=== PATIENT | female | born 1955 | race Caucasian/White ===

== ENCOUNTER → 2019-01-15 | Outpatient (CLI) | payer MEDICARE, SELFPAY ==
[2019-01-15 14:22] LABS: Amphetamine Urine VISTA NEGATIVE (<1000 ng/mL); Barbiturate Urine VISTA NEGATIVE (< 200 ng/mL); Benzodiazepine Urine VISTA NEGATIVE (< 200 ng/mL); Cocaine Urine VISTA NEGATIVE (< 300 ng/mL); Ecstacy Urine VISTA NEGATIVE (< 500 ng/mL); Methadone Urine VISTA NEGATIVE (< 300 ng/mL); PCP Urine VISTA NEGATIVE (< 25 ng/mL); THC Urine VISTA NEGATIVE (< 50 ng/mL); Vista UDS pH Range 6
== END | disposition home or self-care (01) ==
LOC: LAB 13:13
PROVIDERS: Referring Provider Anesthesiology Pain Medicine; Visit Provider Anesthesiology Pain Medicine
DX: F11.20 Opioid dependence, uncomplicated (principal)
CPT/HCPCS: 80307

== ENCOUNTER 2019-07-07 14:58 | Emergency (ER) | payer MEDICARE, OTHER, SELFPAY ==
[2019-07-07 15:03] VITALS: BP 119/59; PULSE 69; RESP 19; RESP 20; TEMP 36.3; O2SAT 97; BMI 35.4
--- NOTE | 2019-07-07 15:51 | ED.DCSUM_ITS ---
- ER Visit Summary Date of Service: 07/07/19 Chief Complaint: Right buttock wound History of Present Illness: The patient is a 63 F who presents with a right buttock wound that has been getting worse over the past 2 to 3 weeks. Patient was seen by home health today. Patient was scheduled to see the wound care center here next week. Patient was referred to the emergency department by home health nurse for evaluation of her wound. The nurse was concerned about the redness around the wound. Patient denies any fevers or chills. Patient admits to some discharge and drainage from the wound. Patient describes her pain as burning. Patient denies any nausea or vomiting. Physical Examination: Vital signs are stable. Patient is afebrile. Patient is in no acute distress. Skin is warm and dry. There is a grade 2 ulceration over the right gluteal area. There is some surrounding erythema. There is some mild purulent drainage. There is tenderness to palpation. There is no abscess formation. Sensation was intact to light touch in all areas of the wound. Strength is 5/5 bilateral knee upper and lower extremities. Test Results: CBC and basic metabolic profile were obtained and were essentially within normal limits. Emergency Department Course and Treatment: Patient was given a dose of clindamycin here. Wound cultures were obtained. Patient was given a prescription for clindamycin. Patient was instructed to follow-up with the wound care center as scheduled. Patient and family understood and were agreeable with the plan. All questions were answered. Disposition: Discharge home Impression: Right gluteal ulcer This note was generated with [employer] dictation software. It may contain incorrect words, spelling, and punctuation that were not noted in review of the chart prior to signing ED Disposition - Plan for ED Patient: Disposition: Home or Assisted Living Diagnosis: Skin ulcer Instructions: What Are Pressure Ulcers?, Preventing Pressure Ulcers Prescriptions: Clindamycin HCl [Cleocin] 300 mg PO Q6H #40 cap Prescription Printed Referrals: Care Physician,No Primary [NON-STAFF] - Clinic,Wound [None] - 5-7 Days
[2019-07-07 16:33] LABS: Absolute Lymphocyte Count 3.09 X10^3/uL (0.83-4.51); Absolute Neutrophil Count 5.7 X10^3/uL (2.0-7.7); Basophil# 0.09 X10^3/uL; Basophil% 0.9 % (0-1); Hematocrit 38.1 % (37-47); Hemoglobin 12.3 g/dL (12.0-15.0); Lymphocyte # 3.09 X10^3/ul (4.0); Lymphocyte % 30.6 % (19-41); Mean Corp Hgb Conc 32.3 g/dL (32-36); Mean Corpuscular Hgb 32.1 pg (27.0-32.0); Mean Corpuscular Volume 99.5 fL (81-99); Mean Platelet Vol. 9.9 fl (6.2-12.0); Monocyte# 0.71 X10^3/uL; NRBC Flagged by Analyzer 0 % (0-5); Neutrophil # 5.71 X10^3/uL (2.7-7.7); Neutrophil % 56.4 % (47-70); Platelet Count 369 K/mm3 (150-450); RBC Distribution Width CV 15.7 % (11.6-14.6); RBC Distribution Width SD 56.4 fl (35.1-43.9); Red Blood Count 3.83 M/mm3 (4.2-5.4); White Blood Count 10.1 K/mm3 (4.4-11.0)
[2019-07-07 17:17] VITALS: BP 110/54; BP 110/64; PULSE 67; RESP 14; TEMP 37.2; O2SAT 96
[2019-07-07 18:00] LABS: Anion Gap 9 (5-15); BUN 18 mg/dL (7-18); BUN/Creat Ratio 10.1 RATIO (10-20); Chloride 103 mmol/L (98-107); Creatinine, Serum 1.79 mg/dL (0.55-1.02); EST Glomerular Filtration Rate 30 mL/min (>60); Est Glom Filt Rate - Afr Amer 37 mL/min (>60); Estimated Creatinine Clearance 26.61 ml/min; Glucose 307 mg/dL (74-106); Potassium 3.9 mmol/L (3.5-5.1); Sodium Level 135 mmol/L (136-145)
[2019-07-07 18:29] VITALS: BP 122/57; PULSE 67; RESP 15; O2SAT 98
== END 2019-07-07 18:43 | disposition home or self-care (01) ==
PROVIDERS: Emergency Provider Emergency Medicine; Family Provider Internal Medicine; PCP Internal Medicine
DX: L89.312 Pressure ulcer of right buttock, stage 2 (principal); I50.9 Heart failure, unspecified; E11.9 Type 2 diabetes mellitus without complications; J44.9 Chronic obstructive pulmonary disease, unspecified; E66.9 Obesity, unspecified; Z68.35 Body mass index [BMI] 35.0-35.9, adult; Z72.0 Tobacco use
CPT/HCPCS: 80048; 85025; 87070; 87075; 87077; 87186; 87205; 99283; J7030; A4216

== ENCOUNTER 2019-07-15 13:28 | Outpatient (RCR) | payer MEDICARE, OTHER, SELFPAY ==
[2019-07-15 13:44] VITALS: BP 109/55; PULSE 84; RESP 16; TEMP 36.8; BMI 35.4
--- NOTE | 2019-07-15 16:42 | HP.PCM_ITS ---
(1) Pressure ulcer, buttock, right, unstageable Status: Chronic Current Visit: Yes Code(s): L89.310 - Pressure ulcer of right buttock, unstageable (2) Blood glucose elevated Status: Chronic Current Visit: Yes Code(s): R73.9 - Hyperglycemia, unspecified (3) Hypertension Status: Chronic Current Visit: No Code(s): I10 - Essential (primary) hypertension (4) Hyperlipidemia Status: Chronic Current Visit: No Code(s): E78.5 - Hyperlipidemia, unspecified (5) Decreased renal function Status: Acute Current Visit: No Code(s): N28.9 - Disorder of kidney and ureter, unspecified (6) Chronic back pain Status: Chronic Current Visit: No Code(s): M54.9 - Dorsalgia, unspecified; G89.29 - Other chronic pain (7) Impaired mobility Status: Chronic Current Visit: Yes Code(s): Z74.09 - Other reduced mobility (8) Severe obesity (BMI 35.0-35.9 with comorbidity) Status: Chronic Current Visit: No Code(s): E66.01 - Morbid (severe) obesity due to excess calories; Z68.35 - Body mass index (BMI) 35.0-35.9, adult History of Present Illness Date of Service: 07/15/19 Chief Complaint: Right buttock wound History of Wound: This is a pleasant 63 year old female patient who [facility] an initial evaluation today, 07/15/2019 for a right buttock pressure ulcer. Patient states that the DPU occurred approximately 1 month ago while at [facility] for rehabilitation due to hypoxia. She was referred to the [facility] for evaluation and treatment. On 07/07/2019 patient presented to the [facility] emergency department d/t concern for increasing redness surrounding the wound. She was given 1 dose of IV clindamycin, and started on a 10-day p.o. course of clindamycin. Wound cultures were collected, as well as blood work. ED wound cultures were positive for the following: serratia (1+), e.coli (1+), and corynebacterium (3+), anaerobic cultures still pending. Lab results were significant for the following: eGFR 30, Cr 1.79, Glucose 307. Patient's at home wound care has consisted of dressing the wound with Santyl and covering with gauze, changing twice daily. Her has been providing her wound care, and states with each dressing change the dressing has been saturated with a foul-smelling odor. The redness surrounding the pressure ulcer has remained stable. The patient otherwise denies any fever, chills, nausea, vomiting, or diarrhea. Denies any increasing pain at or surrounding the site of the pressure ulcer. Patient is mobile with walker for support, but per her she ambulates infrequently, remaining seated most of the time. Patient also receives home health via [facility] 3x/week. Patient does not currently have a primary care provider, but has an appointment scheduled this week to establish with Dr. Zaira Donaldson in [place]. Patient denies any history of diabetes, though she states her blood glucose ranges from 70-170s at home. She has a PMH significant or HTN, HLD, and obesity. Patient is a former cigarette smoker, and currently uses a vape pen to smoke. Patient has a chronic history of back pain, including several surgeries, which limits her mobility. Past Medical History Past Medical History: Chronic Problems Pressure ulcer, buttock, right, unstageable (Chronic) Blood glucose elevated (Chronic) Hypertension (Chronic) Hyperlipidemia (Chronic) Chronic back pain (Chronic) Impaired mobility (Chronic) Severe obesity (BMI 35.0-35.9 with comorbidity) (Chronic) Surgical History: - - spinal surgeries Allergies/Adverse Reactions: Allergies Iodinated Contrast Media [CONTRASTS] Allergy (Verified 07/07/19 15:55) Hives morphine Adverse Reaction (Verified 07/07/19 15:55) Nausea Home Medications: Ambulatory Orders Medication Instructions Recorded Clindamycin HCl [Cleocin] 300 mg PO Q6H #40 cap 07/07/19 Smoking Status: Current every day smoker Tobacco Use: Vapor Review of Systems Constitutional: Denies: Anorexia, Chills, Fever, Malaise, Weight Change Eyes: Denies: Pain, Vision Change HEENT: Denies: Difficulty Hearing, Difficulty Swallowing, Sinus Congestion Cardiovascular: Denies: Chest Pain, Palpitations Respiratory: Denies: Cough, Shortness of Breath Gastrointestinal: Denies: Diarrhea, Nausea, Vomiting Genitourinary: Denies: Dysuria, Hematuria Musculoskeletal: Reports: Back Pain Skin: Reports: Wounds - right buttock pressure ulcer Neurological: Denies: Balance problems, Change in Speech, Slurred speech, Confusion, Focal weakness Endocrine: Denies: Heat/ Cold Intolerance, Polydipsia, Polyuria Hematologic/ Lymphatic: Denies: Anemia, Easy Bruising, Easy Bleeding - Physical Exam Vital Signs Temp Pulse Resp BP 98.2 F 84 16 109/55 L 07/15/19 13:44 07/15/19 13:44 07/15/19 13:44 07/15/19 13:44 General: Alert, Oriented x3, Cooperative, No apparent distress HEENT: Atraumatic, EOMI, Normocephalic Oral: Moist Mucosa Neck: Supple, No JVD, Trachea Midline Lungs: Clear to auscultation, Normal air movement, No rhonchi, No wheeze, No rales Cardiovascular: Regular rate, Regular Rhythm Abdomen: Bowel Sounds Present, Soft, Non Tender, Obese Extremities: No clubbing, No cyanosis, No edema, Capillary Refill Less than 3 Seconds, No Calf Tenderness, Peripheral Pulses Normal Skin: No rashes, Ulcer/ Wound - Unstageable pressure ulcer of right buttock with tunneling throughout. Copious amounts of purulent, foul smelling drainage expressed. Melia-wound area is erythematous without swelling. Does not probe to bone. Wound Measurements and Assessment WC - Nurse 1 - General Ulcer Measurement Start: 07/15/19 13:44 Freq: Status: Active Protocol: Activity Type Activity Date Activity User E-Sign Co-Sign Detail Recorded Client Recorded Date Recorded By Document 07/15/19 13:44 [facility] [id number] 07/15/19 14:00 [facility] 07/15/19 13:44 Wound Center Nurse 1 [Ulcer Assessment] 1-Right buttuck -Combined with other wound No -Current Size (cm) - Length 5.8 -Current Size (cm) - Width 6.9 -Current Size (cm) - Depth 1.6 -Total Square Cm 40.02 -Photo Taken Yes -Epithelialization None Present -Tunneling No -Undermining/Tunneling No -Circular Undermining No -Classification - Pressure Ulcer Unstageable -Exudate Amt Medium -Exudate Type Serosanguineous -Wound Margin Flat & Intact -Granulation Amt None Present (0 %) -Slough/Fibrin Yes -Necrosis Amt Large (67-100%) -Necrotic Tissue Type Adherent Slough -Structure Exposed N/A -Texture (Melia-wound Skin Appearance) Assessed -Moisture (Melia-wound Skin Appearance Assessed,Dry/ ) Scaly -Color (Melia-wound Skin Appearance) Assessed -Temperature (Melia-wound Skin No Abnormality Appearance) (Pt Warm) -Tenderness on Palpation (Melia-wound No Skin Appearance) -Ulcer Cleansing Wound Cleanser -Foul Odor after Cleansing No -Anesthetic Used 4% Lidocaine Solution,5% Lidocaine Gel [Edema Assessment] -Lower Limb Edema Present NA - Nurse 2 - General Ulcer CM Notes Start: 07/15/19 13:44 Freq: Status: Active Protocol: Activity Type Activity Date Activity User E-Sign Co-Sign Detail Recorded Client Recorded Date Recorded By Document 07/15/19 14:25 DV [id number] 07/15/19 15:00 DV 07/15/19 14:25 Wound Center Nurse 2 [Procedure/Treatment] 1-Right buttuck -Time 14:27 -Correct Patient Yes -Correct Side, Site, Position Yes -Correct Procedure Yes -Procedure Performed Yes -Type of Procedure Debridement -Clinical Debridement Subcutaneous -Post Debridement Size (cm) - Length 6.0 -Post Debridement Size (cm) - Width 7.0 -Post Debridement Size (cm) - Depth 2.0 -Total Square Cm 42.00 -Wound/Ulcer Outcome Not Healed -Ulcer Cleansing Rinsed/ Irrigated with Saline -Foul Odor after Cleansing No -Bioengineered Tissue No -Bleeding Controlled with Pressure -Offloading No [See Physician Procedure note for Specifics] Pain Scale: 0-10 Numeric [Pain] -Is Patient Pain Free? Yes Musculoskeletal: Tenderness - on manipulation of pressure ulcer Neurological: Neuro grossly intact Psych/Mental Status: Normal Affect, Appropriate Debridement Note Post-Debridement Measurements/Treatment - Nurse 2 - General Ulcer CM Notes Start: 07/15/19 13:44 Freq: Status: Active Protocol: Activity Type Activity Date Activity User E-Sign Co-Sign Detail Recorded Client Recorded Date Recorded By Document 07/15/19 14:25 DV [id number] 07/15/19 15:00 DV 07/15/19 14:25 Wound Center Nurse 2 1-Right buttuck -Time 14:27 -Correct Patient Yes -Correct Side, Site, Position Yes -Correct Procedure Yes -Procedure Performed Yes -Type of Procedure Debridement -Clinical Debridement Subcutaneous -Post Debridement Size (cm) - Length 6.0 -Post Debridement Size (cm) - Width 7.0 -Post Debridement Size (cm) - Depth 2.0 -Total Square Cm 42.00 -Wound/Ulcer Outcome Not Healed -Ulcer Cleansing Rinsed/ Irrigated with Saline -Foul Odor after Cleansing No -Bioengineered Tissue No -Bleeding Controlled with Pressure -Offloading No Pain Scale: 0-10 Numeric Is Patient Pain Free? Yes Wound debrided: pressure ulcer of right buttock Laterality: Right Wound Grade/Stage: unstageable Type of Debridement: Excisional debridement Anesthesia Used: 4% Lidocaine Solution, 5% Lidocaine Gel Depth: in the subcutaneous layer Percentage of wound debrided: 100 Instrument Used: 7mm curette Tissue Removed: Slough and devitalized tissue Severity: Fat Layer Exposed Amount of bleeding with debridement: Mild Bleeding Controlled with: Compression and gauze Patient tolerated procedure well Assessment/Plan Active Problems Pressure ulcer, buttock, right, unstageable (Chronic) Blood glucose elevated (Chronic) Impaired mobility (Chronic) Assessment: Right buttock pressure ulcer, unstageable. Elevated blood glucose. Impaired mobility. Chronic back pain. Obesity (BMI 35.4) with co-morbidity Plan: Debridement performed today in clinic. Silvercel applied, wicked into tunneling. Covered with ABD and secured with tape. At home wound-care instructions: Patient and instructed to change dressing daily, wicking Silvercel into tunneling and leaving a tail for removal. Cover with ABD or guaze, and secure with tape. Patient may shower. Orders will be faxed to [facility] and nurses may perform dressing changes when at patient's home. Off-loading: Patient instructed to avoid direct pressure on right buttock by offloading with pillows and/or wedges and performing frequent position changes. Diet: Patient encouraged to increase protein and vitamin C intake while taking caution to avoid high carbohydrate and/or sugar intake. Labs/cultures/imaging: Cultures re-ordered and collected today d/t copious amounts of purulent, foul-smelling drainage from wound. Previous culture and labs reviewed from ED visit. Additional labwork ordered. Finish Clindamycin. Start Levaquin as prescribed x 10 day course. Follow-up: Return to clinic in 1 week for re-evaluation. Return sooner or report to the emergency room should symptoms worsen, or new symptoms arise. Scheduled with Dr. Kaiser for [facility] consult at [facility] on 07/28/19. Code Visit Office Visits / Consults: [id number] OV L4 New [id number]: [id number] Tricia subq tissue 20 sq cm/<
[2019-07-15 17:09] LABS: Erythrocyte Sedimentation Rate 93 mm/hr (0-30)
[2019-07-15 17:44] LABS: ALB/GLOB Ratio 0.6 RATIO (0.9-2.4); AST(SGOT) 94 U/L (15-37); Alanine Aminotransfer ALT/SGPT 66 U/L (13-56); Albumin, Serum 2.9 g/dL (3.2-5.0); Alkaline Phosphatase 316 U/L (45-117); Anion Gap 4 (5-15); BUN 16 mg/dL (7-18); BUN/Creat Ratio 9.3 RATIO (10-20); Calcium,Total 9.6 mg/dL (8.5-10.1); Chloride 104 mmol/L (98-107); Creatinine, Serum 1.72 mg/dL (0.55-1.02); EST Glomerular Filtration Rate 32 mL/min (>60); Est Glom Filt Rate - Afr Amer 38 mL/min (>60); Estimated Creatinine Clearance 27.69 ml/min; Globulin 4.7 g/dL (2.2-4.2); Glucose 133 mg/dL (74-106); Hemoglobin A1c 6.7 % (4.2-6.3); Potassium 4.4 mmol/L (3.5-5.1); Prealbumin 22.3 mg/dL (20.0-40.0); Protein, Total 7.6 g/dL (6.4-8.2); Sodium Level 135 mmol/L (136-145)
== END 2019-08-08 23:59 ==
LOC: WC 13:28
PROVIDERS: Family Provider Internal Medicine; PCP Internal Medicine; Referring Provider Nurse Practitioner Family; Visit Provider Nurse Practitioner Family
DX: L89.310 Pressure ulcer of right buttock, unstageable (principal); R73.9 Hyperglycemia, unspecified; R26.9 Unspecified abnormalities of gait and mobility; I10 Essential (primary) hypertension; E78.5 Hyperlipidemia, unspecified; M54.9 Dorsalgia, unspecified; G89.29 Other chronic pain; F17.290 Nicotine dependence, other tobacco product, uncomplicated; E66.01 Morbid (severe) obesity due to excess calories; Z68.35 Body mass index [BMI] 35.0-35.9, adult; Z79.82 Long term (current) use of aspirin; Z79.4 Long term (current) use of insulin; Z79.899 Other long term (current) drug therapy; Z88.8 Allergy status to other drugs, medicaments and biological substances
CPT/HCPCS: 11042; 11045; 36415; 80053; 83036; 84134; 85652; 87070; 87075; 87077; 87186; 87205; 99214; G0463

== ENCOUNTER 2019-07-24 16:30 | Inpatient (IN) | payer MEDICARE, OTHER, SELFPAY ==
[2019-07-24 16:32] VITALS: BP 146/88; PULSE 89; RESP 18; TEMP 36.6; BMI 37.5
--- NOTE | 2019-07-24 16:56 | EKG12_ITS ---
Test Reason : Blood Pressure : / mmHG Vent. Rate : 084 BPM Atrial Rate : 084 BPM P-R Int : 146 ms QRS Dur : 090 ms QT Int : 404 ms P-R-T Axes : 049 018 064 degrees QTc Int : 477 ms Normal sinus rhythm Inferior-posterior infarct , age undetermined , cannot be excluded Abnormal ECG Confirmed by JORDEN MARES, PETE ([id number]), material expeditor CLEMENT GTZ ([id number]) on 07/28/2019 12:21:19 PM Referred By: Zaira Donaldson Confirmed By:PETE LEONARDO MD
--- NOTE | 2019-07-24 16:56 | RAD_ITS ---
STUDY: X-RAY - LUMBAR SPINE REASON FOR EXAM: Female, 63 years old. Chronic back pain. Fall. TECHNIQUE: 2 view(s) of the lumbar spine were obtained. COMPARISON: None FINDINGS: Normal lumbar lordosis. Is a mild levoscoliosis. There is a normal alignment of the vertebrae. There is posterior fusion of L3-S1. The hardware appears intact. There is marked disc space narrowing with endplate spondylosis at L2-3. There is no evidence of acute fracture or loss of vertebral axial height. There appears to be a spinal stimulator in the soft tissues of the lower back. The soft tissue structures are unremarkable. RAD/Lumbar Spine 2 or 3 Views IMPRESSION: Evidence of L3-S1 surgical fusion. There is no acute fracture or subluxation. Electronically Signed: Jimmy Lara DO at 18:59 EST Tel [phone], Service support ,
--- NOTE | 2019-07-24 17:17 | ED.VISSUMM ---
- ER Visit Summary Date of Service: 07/24/19 Chief Complaint: Fall, generalized weakness History of Present Illness: The patient is a 63 F presenting after fall. She has fallen twice in the last 2 days. She had an appointment with a new primary care physician today. She fell in the garage on the way to the appointment, she did not make it to the appointment. She did not hit her head or lose consciousness. She states her legs gave out. She has a history of a decubitus ulcer right buttock that has been treated at the wound clinic. She is scheduled to see Dr. Kaiser's office tomorrow. She recently finished a course of Augmentin and was recently started on clindamycin by the wound clinic. She recently got out of rehab and has been home for 2 weeks. She has history of chronic back pain and sees Dr. Mcnally. She wears home O2. She complains of generalized weakness and fatigue. She complains of shortness of breath. Denies fever. Denies other complaints. Physical Examination: Vitals are stable. Patient is afebrile. Alert no acute distress. HEENT exam is unremarkable. Neck is supple. Lungs are clear and equal bilaterally. Heart is regular rate and rhythm. Abdomen is soft nontender nondistended. Decubitus ulcer right buttock with purulent drainage Extremities are unremarkable. Skin is warm and dry. No focal neurologic deficit. Remainder of exam is unremarkable. Emergency Department Course and Treatment: CBC shows hemoglobin 9.1. Chemistries show creatinine 2.7, previous 1.72. Troponin is negative. Chest x-ray shows cardiomegaly, atelectasis. Lumbar x-ray shows no acute fracture. Urinalysis unremarkable. She was given IV fluids. She was given Rocephin IV after culture results were reviewed. Discussed with the hospitalist for admission. Disposition: Admission Impression: Right buttock ulcer, ILIANA This note was generated with [employer] dictation software. It may contain incorrect words, spelling, and punctuation that were not noted in review of the chart prior to signing ED Disposition - Plan for ED Patient: Referrals: Zaira Donaldson DO [Primary Care Provider] -
[2019-07-24 17:35] LABS: Bacteria 0 SEEN /hpf (None Seen); Mucous, Urine 0 SEEN /hpf (<or=2+); Red Blood Cells-Urine 0 SEEN /hpf (0-5); Squamous Epithelial Cells - UA 0 SEEN /hpf (5-10); White Blood Cells 0 SEEN /hpf (0-5)
[2019-07-24 17:44] VITALS: BP 129/74; PULSE 84; RESP 18; O2SAT 96
[2019-07-24 18:10] LABS: Color, Urine Yellow (Yellow); Glucose, Dipstick Normal (Normal); Ketone-Dipstick Negative (Negative); Leukocyte Esterase-Dipstick Negative /ul (Negative); Nitrite-Dipstick Negative (Negative); Occult Blood-Urine 10 /ul (Negative); Protein-Dipstick 30 mg/dl (Negative); Urine Bilirubin Dipstick Negative (Negative); Urine Clarity Clear (Clear); Urine Urobilinogen Normal (Normal)
[2019-07-24 18:32] LABS: Basophil# 0.06 X10^3/uL; Eosinophil# 0.19 X10^3/uL; Hematocrit 29.1 % (37-47); Hemoglobin 9.1 g/dL (12.0-15.0); Mean Corp Hgb Conc 31.3 g/dL (32-36); Mean Corpuscular Hgb 31.3 pg (27.0-32.0); Mean Platelet Vol. 8.9 fl (6.2-12.0); Monocyte# 0.74 X10^3/uL; NRBC Flagged by Analyzer 0 % (0-5); Neutrophil # 4.64 X10^3/uL (2.7-7.7); POSITIVE COUNT YES; POSITIVE MORPHOLOGY YES; Platelet Count 225 K/mm3 (150-450); RBC Distribution Width CV 14.6 % (11.6-14.6); RBC Distribution Width SD 53.5 fl (35.1-43.9); Red Blood Count 2.91 M/mm3 (4.2-5.4); White Blood Count 8.8 K/mm3 (4.4-11.0)
--- NOTE | 2019-07-24 18:34 | RAD_ITS ---
STUDY: X-RAY CHEST REASON FOR EXAM: Female, 63 years old. Shortness of breath and back pain. TECHNIQUE: Single AP portable view of the chest. COMPARISON: None. FINDINGS: The lungs are hypoexpanded. There is minimal bibasilar atelectasis. There is no demonstrated pleural abnormality. The heart is enlarged. Normal mediastinum and barrera. Normal visualized pulmonary arteries. There is atherosclerotic calcification of the aortic arch with tortuosity. The thoracic spine is obscured by the mediastinum. There is degenerative osteoarthritis of the bilateral shoulders. There is no demonstrated abnormality of the visualized soft tissue structures of the upper abdomen. RAD/Chest 1 View (Portable) IMPRESSION: 1. Cardiomegaly. 2. Minimal bibasilar atelectasis. Electronically Signed: Jimmy Lara DO at 18:59 EST Tel [phone], Service support ,
[2019-07-24 18:42] LABS: Anion Gap 4 (5-15); BUN 25 mg/dL (7-18); BUN/Creat Ratio 8.4 RATIO (10-20); Chloride 105 mmol/L (98-107); Creatinine, Serum 2.97 mg/dL (0.55-1.02); EST Glomerular Filtration Rate 17 mL/min (>60); Est Glom Filt Rate - Afr Amer 20 mL/min (>60); Estimated Creatinine Clearance 16.04 ml/min; Glucose 111 mg/dL (74-106); Sodium Level 136 mmol/L (136-145)
[2019-07-24 19:02] LABS: Transitional Epithelial - Ur 0-5 SEEN /hpf (0-5)
[2019-07-24 19:03] LABS: Renal Epithelial Cells 0-5 SEEN /hpf (0-5)
[2019-07-24 19:05] LABS: Hyaline Cast 0-5 SEEN /lpf (0-5)
[2019-07-24 19:07] LABS: Differential Indicated SCAN CRITERIA MET
[2019-07-24 19:08] LABS: Anisocytosis 1+; Microcytosis 1+; Platelet Estimate ADEQUATE (ADEQ)
--- NOTE | 2019-07-24 19:29 | HP.PCM_ITS ---
Problem List (1) Intractable low back pain Status: Acute (2) Pressure ulcer, buttock, right, unstageable Status: Acute (3) ILIANA (acute kidney injury) Status: Acute (4) CKD (chronic kidney disease), stage III Status: Chronic (5) Diabetes mellitus, type II Status: Chronic Qualifiers: Diabetes mellitus terminal manager insulin use: without terminal manager use Diabetes mellitus complication status: with other specified complication Qualified Code(s): E11.69 - Type 2 diabetes mellitus with other specified complication (6) Anxiety and depression Status: Chronic (7) RLS (restless legs syndrome) Status: Chronic (8) Nicotine vapor product user Status: Chronic (9) Former tobacco use Status: Chronic (10) Macrocytic anemia Status: Chronic (11) Chronic back pain Status: Chronic Qualifiers: Back pain location: low back pain Back pain laterality: unspecified Sciatica presence: unspecified whether sciatica present Qualified Code(s): M54.5 - Low back pain; G89.29 - Other chronic pain (12) Hyperlipidemia Status: Chronic Qualifiers: Hyperlipidemia type: unspecified Qualified Code(s): E78.5 - Hyperlipidemia, unspecified (13) Hypertension Status: Chronic Qualifiers: Hypertension type: essential hypertension Qualified Code(s): I10 - Essential (primary) hypertension (14) Severe obesity (BMI 35.0-35.9 with comorbidity) Status: Chronic History of Present Illness Date of Admission: 07/24/19 Chief Complaint: Mechanical fall, intractable back pain The patient is a 63 y/o F w/ PMHx: Anxiety and Depression/Bipolar disorder, Obesity, GERD, RLS, HTN, HLD, Diabetes mellitus type II, CKD stage III/IV, Tobacco use (vapor), Chronic R Buttock Pressure Sore following with Wound Care, Chronic back pain who presents to the [facility] ED on 07/24/19 with history of mechanical fall with acute intractable back pain, noted to have occurred in her garage, noted to have been going down stairs and fell at the bottom with no loss of consciousness nor head trauma. She notes she has continued her clindamycin, yet to start her levaquin with ongoing discharge from the wound. Work-up in the ED included T 97.8, heart rate 89, BP 146/88, respiratory rate 18, 96% on room air liters nasal cannula, CBC with WBC 8.8, hemoglobin 9.1, platelet 225 with increased granulocytes, BMP with BUN/creatinine 25/2.97, glucose 111, troponin less than 0.015, urinalysis with evidence of mild dehydration with Trego gravity 1.020, protein 30, occult blood 10, negative leukocyte esterase and negative nitrite with no urine bacteria or market WBC evident, blood culture pending per ED, chest x-ray with cardiomegaly with minimal bibasilar atelectasis, plain film of the lumbar spine with evidence of L3-S1 surgical fusion with no acute fracture or subluxation evident, EKG in the ED w/ SR with noted T wave inversions in V1-V3, no comparison, no chest pain complaint, ED was able to obtain EKG from alternate facility where she normally is evaluated ([place] [facility]) and confirmed that this is a previously known chronic finding. Upon admission reviewed case with Dr. Kaiser and he noted intention to obtain CT of the pelvis with likely given description of wound with purulent discharge and acute presentation to transition to the OR tomorrow. Past Medical History Past Medical History (Chronic Problems): Chronic Problems Blood glucose elevated (Chronic) Hypertension (Chronic) Hyperlipidemia (Chronic) Chronic back pain (Chronic) Impaired mobility (Chronic) Severe obesity (BMI 35.0-35.9 with comorbidity) (Chronic) CKD (chronic kidney disease), stage III (Chronic) Diabetes mellitus, type II (Chronic) Anxiety and depression (Chronic) RLS (restless legs syndrome) (Chronic) Nicotine vapor product user (Chronic) Former tobacco use (Chronic) Macrocytic anemia (Chronic) Allergies Iodinated Contrast Media [CONTRASTS] Allergy (Verified 07/24/19 16:36) Hives morphine Adverse Reaction (Verified 07/24/19 16:36) Nausea Home Medications: Ambulatory Orders Medication Instructions Recorded Allopurinol 300 mg PO DAILY 07/22/19 Benztropine Mesylate 0.5 mg PO QHS 07/22/19 Bumetanide 1 mg PO BID 07/22/19 Buspirone HCl 10 mg PO BID 07/22/19 Cyanocobalamin (Vitamin B-12) 1,000 mcg PO DAILY 07/22/19 [Vitamin B-12] Diazepam [Valium] 5 mg PO DAILY 07/22/19 Empagliflozin [Jardiance] 10 mg PO DAILY 07/22/19 Furosemide 40 mg PO BID 07/22/19 Gabapentin [Neurontin] 600 mg PO 4X/DAY 07/22/19 Hydroxyzine HCl 50 mg PO QHS PRN PRN 07/22/19 Ibuprofen/Diphenhydramine HCl 2 cap PO QHS PRN 07/22/19 [Advil Pm Liqui-Gels] Levothyroxine [Synthroid] 75 mcg PO DAILY 07/22/19 Multivitamin with Minerals 1 ea PO DAILY 07/22/19 [Multivitamins with Minerals] Olanzapine 20 mg PO DAILY 07/22/19 Omeprazole 40 mg PO DAILY 07/22/19 Potassium Chloride [K-Dur] 10 meq PO BID 07/22/19 Pramipexole Di-HCl [Mirapex] 0.125 mg PO QHS 07/22/19 Psyllium Husk [Fiber] 4 cap PO DAILY 07/22/19 Rosuvastatin Calcium 40 mg PO QHS 07/22/19 Sodium Bicarbonate 2 tab PO BID 07/22/19 Torsemide 20 mg PO BID 07/22/19 Venlafaxine HCl [Venlafaxine HCl 150 mg PO DAILY 07/22/19 ER] traZODone [Desyrel] 25 mg PO QHS 07/22/19 Amox/Clavulanate Tablet [Augmentin 1 tab PO Q12H 07/24/19 Tablet] Aspirin [Aspir 81] 81 mg PO QHS 07/24/19 Cholecalciferol (Vitamin D3) 5,000 unit PO DAILY 07/24/19 [Vitamin D3] Metoprolol Tartrate 25 mg PO BID 07/24/19 Mv-Min/FA/Vit K/Lycop/Lut/Zeax 1 tab PO TID 07/24/19 [Ocuvite Eye Plus Multi Tablet] Surgical History: - - Lumbar spinal surgery with hardware, at least 4 previous back surgeries, cholecystectomy, appendectomy, hysterectomy. 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 Tobacco Use: Vapor Alcohol: None Drugs: None - *Family History Maternal History Items: - - Patient denies any market maternal or paternal family history including heart disease, diabetes, cancer. Paternal History Items: - - Patient denies any market maternal or paternal family history including heart disease, diabetes, cancer. Review of Systems Constitutional: Reports: Anorexia, Malaise, Weakness, Fatigue. Denies: Chills, Fever, Weight Change HEENT: Denies: Head Aches, Sinus Congestion, Sinus Drainage Cardiovascular: Denies: Chest Pain, Palpitations Respiratory: Reports: Shortness of breath upon exertion. Denies: Cough, Shortness of breath at rest, Sputum production Gastrointestinal: Denies: Abdominal Pain, Nausea, Vomiting Genitourinary: Denies: Dysuria Musculoskeletal: Reports: Back Pain, Joint Pain. Denies: Joint Tenderness Skin: Reports: Skin Changes, Wounds. Denies: Rash Neurological: Denies: Numbness, Tingling, Focal weakness Psychiatric: Reports: Anxiety, Depression. Denies: Homicidal Ideations, Suicidal Ideations Hematologic/ Lymphatic: Reports: Easy Bruising, Easy Bleeding VTE Information - Inpt Only VTE Present on Admission: No VTE Mechan Device Prophylaxis: SCD's VTE Pharm Prophylaxis ordered?: Yes Patient Problems: Active and Suspected Problems ILIANA (acute kidney injury) (Acute) Intractable low back pain (Acute) Subjective: Seated upright in the ED bed, fatigued appearance, notes ongoing discomfort to her lumbar back status post recent fall. Objective: Physical Examination: General: awake, alert, oriented x 3 and cooperative, seated upright in the ED bed, fatigued appearance, notes ongoing discomfort to her lumbar back. Skin: normal color, turgor, no icterus, cyanosis except notable right buttock region pressure wound, tunneling, unclear exact stage but suspect high risk for osteomyelitis, purulent foul-smelling drainage present. HEENT: AT/NC, EOMI, PERRLA, dry MM, no carotid bruits or JVD noted; however, thickened neck makes examination difficult. Lungs: CTA bilaterally, moderate effort, moderate decrease BL bases, no rales, ronchi or wheezing. Heart: Regular rate and rhythm; no gallop, rub audible. Abdomen: soft, obese, NTTP, ND, normal BS, no HSM; however, habitus makes examination difficult. Extremities: no cyanosis, clubbing, mild bilateral ankle not markedly pitting edema. Neurological: patient awake, alert, oriented x 3; cognitive function intact; pupils equally reactive to light and accomodation; cranial nerves II-XII grossly normal, moving all 4 extremities but limited given acute on chronic lumbar back pain, no focal deficits, strength moderately to severely global decrease secondary to acute presentation and underlying comorbidities. Psychiatric: affect appears fatigued, flat, no acute evidence of depressive or anxiety feelings. - Physical Exam Vitals/I&O's: Vital Signs Temp Pulse Resp BP Pulse Ox 97.8 F 84 18 129/74 H 96 07/24/19 16:32 07/24/19 17:44 07/24/19 17:44 07/24/19 17:44 07/24/19 17:44 Oxygen Flow Rate (L/min) 2 Oxygen Delivery Method Nasal Cannula Weight: 211 lb 10.3 oz Body Mass Index (BMI) 37.5 Laboratory Results 07/24/19 17:25: Urine Color Yellow, Urine Clarity Clear, Urine pH 5.0, Ur Specific Lincoln 1.020, Urine Protein 30 H, Urine Glucose (UA) Normal, Urine Ketones Negative, Urine Occult Blood 10 H, Urine Nitrite Negative, Urine Bilirubin Negative, Urine Urobilinogen Normal, Ur Leukocyte Esterase Negative, Urine RBC 0 SEEN, Urine WBC 0 SEEN, Ur Squamous Epith Cells 0 SEEN, Ur Transition Epith Cell 0-5 SEEN, Ur Renal Epithelial Cell 0-5 SEEN, Urine Bacteria 0 SEEN, Hyaline Casts 0-5 SEEN, Urine Mucus 0 SEEN 07/24/19 18:13: WBC 8.8, RBC 2.91 L, Hgb 9.1 L, Hct 29.1 L, MCV 100.0 H, MCH 31.3, MCHC 31.3 L, RDW Std Deviation 53.5 H, RDW Coeff of Harper 14.6, Plt Count 225, MPV 8.9, Immature Gran % (Auto) 5.300 H, Neut % (Auto) 52.7, Lymph % (Auto) 30.7, Tyrrell % (Auto) 8.4, Eos % (Auto) 2.2, Baso % (Auto) 0.7, Absolute Neuts (au to) 4.6, Absolute Lymphs (auto) 2.70, Nucleated RBC % 0, Diff Path Review May , Platelet Estimate ADEQUATE, Anisocytosis 1+, Microcytosis 1+ 07/24/19 18:13: Sodium 136, Potassium 5.0, Chloride 105, Carbon Dioxide 27.0, Anion Gap 4 L, BUN 25 H, Creatinine 2.97 H, Estim Creat Clear Calc 16.04, Est GFR (MDRD) Af Amer 20 L, Est GFR (MDRD) Non-Af 17 L, BUN/Creatinine Ratio 8.4 L, Glucose 111 H, Calcium 10.0, Troponin I < 0.015 Current Medications Sodium Chloride () 1,000 mls @ 999 mls/hr IV .Q1H1M ONE Stop: 07/24/19 20:24 Assessment/Plan All Active Problems Pressure ulcer, buttock, right, unstageable (Acute) Decreased renal function (Acute) ILIANA (acute kidney injury) (Acute) Intractable low back pain (Acute) The patient is a 63 y/o F w/ PMHx: Anxiety and Depression/Bipolar disorder, Obesity, GERD, RLS, HTN, HLD, Diabetes mellitus type II, CKD stage III/IV, Tobacco use (vapor), Chronic R Buttock Pressure Sore following with Wound Care, Chronic back pain who presents to the [facility] ED on 07/24/19 with history of mechanical fall with acute intractable back pain. 1. Mechanical Fall w/ Acute on Chronic Intractable Lumbar Back Pain: Plain films in the ED w/ evidence of L3-S1 surgical fusion with no acute fracture or subluxation evident. Will admit to [facility], maintain on fall precautions, frequent positioning, po/IV pain regimen, complicated presentation given ILIANA with need for alterations to her regimen for renal function, low dose zanaflex PRN, hold on steroids given #3 ongoing and DM, anti-emetics, bowel regimen. Will consult PT and OT for evaluation as well as CM for discharge planning. 2. Acute kidney injury on CKD stage III/IV: Secondary to recent infection, poor intake, nephrotoxic medications. Admission BUN/Cr 25/2.97, prior baseline creatinine noted to be 1.7. Will gently hydrate, hold nephrotoxic medications and repeat chemistry in AM, obtain FeNa and renal US assessment. If not improving would plan Nephrology consultation. 3. Serratia marcescens and E. Coli Infected Chronic R Buttock Pressure Sore following with Wound Care, Unstageable: Recent wound care evaluation, recent Wound Cx 07/15/19 with noted Serratia marcescens and E. Coli with near randolph sensitivity with only noted ancef resistance with Serratia, discharged w/ planned completion of clindamycin-->transition to levaquin x 14 days following completion, instead given sensitivities will start IV rocephin, Wound RN consultation planned, plan continued offloading, dressing changes w/ dressing daily pending OR and wound RN evaluation, consulted Dr. Kaiser and noted intention to order CT pelvis with planned OR 07/25/19. 4. Diabetes mellitus type II: Hold oral home regimen, obtain hemoglobin A1c, nutrition consulted for education and teaching, ADA diet, accu checks w/ ISS. 5. Anxiety and depression/Bipolar disorder: We will continue patient BuSpar, hydroxyzine, Valium, olanzapine, venlafaxine, trazodone regimen as well as b enztropine with hold or alterations as needed for renal function as noted. 6. Macrocytic anemia: Admission Hgb 9.1, prior noted 12.3, suspect dehydrated presentation as noted w/ ILIANA, will obtain Fe panel, ferritin, vitamin B12 and folic acid. 7. Hypertension: Continue home regimen including metoprolol, hold diuretic given ILIANA, PRN hydralazine. 8. Hyperlipidemia: We will continue patient home statin regimen. 9. Hypothyroidism: Continue home synthroid regimen. 10. GERD: We will continue patient home PPI. 11. RLS: We will continue patient home Mirapex regimen. 12. Obesity: Weight loss and lifestyle changes encouraged, nutrition consulted. 13. Vapor Nicotine Use, Former Cigarette Tobacco use: Encouraged complete cessation, notable health risks with vapor usage, NR PRN, RT consultation for cessation counseling. 14. Incidental EKG changes: EKG in ED sinus rhythm with V1 through V3 T wave inversions but no comparison, obtained EKG from outside facility and this was noted to be present on 05/2019 EKG with normal cardiac enzymes x1. 15. DVT prophylaxis: SCDs, heparin. 16. CODE status: Patient does not have healthcare power of claim attorney nor living will. Discussed the importance of potentially setting these up for the future with her who was also present especially given her chronic comorbidities and health status. Noted that if patient and are interested lining caser and social workers could have assist in this process. Discussed CODE status at length including difference between FULL code, DNR-CCA and DNR-CC status. Following discussions about the differences in these status, requested Full Code status. Advanced Care Planning Face to Face Time: 16 minutes. Code Visit Inpatient E&M: 49683 Init Hosp L3 Procedures: 43440 Advncd Care Plan 30 Min
[2019-07-24] MEDS: 0.9% Normal Saline 1,000 ML 999 ML IV (20:24)
[2019-07-24] MEDS: Ceftriaxone 1 GM/50 ML BAG IV (20:31)
[2019-07-24 20:49] VITALS: BP 129/74; PULSE 84; RESP 18; O2SAT 92
[2019-07-24 21:41] VITALS: BMI 34.7
[2019-07-24 21:51] LABS: Iron 105 ug/dL (50-170); Iron Binding Capacity,Total 302 ug/dL (250-450); Magnesium 2.7 mg/dL (1.6-2.6); PERCENT IRON SATURATION 34.8 % (15.0-55.0)
--- NOTE | 2019-07-24 21:56 | CT_ITS ---
STUDY: CT PELVIS WITHOUT CONTRAST REASON FOR EXAM: Female, 63 years old. INFECTED RT ISCHIAL PRESSURE SORE WITH PURULENT DRAINAGE,ON ANTIBIOTICS -- HX:HTN,DIABETES RADIATION DOSAGE (If Supplied By Facility): CTDIvol = ( 28.21 ) mGy, DLP = ( 1053.30 ) mGycm TECHNIQUE: Transaxial imaging of the pelvis was performed without oral contrast, and without intravenous administration of contrast material. Multiplanar coronal and sagittal images were reformatted. Individualized dose optimization techniques were used for this CT. COMPARISON: None. FINDINGS: Normal urinary bladder. Normal visualized small intestine. There are multiple colonic diverticula of the sigmoid colon consistent with chronic diverticulosis. There is no pelvic fluid. There is no pelvic mass lesion or lymphadenopathy. There is diffuse atherosclerotic calcification of the pelvic arteries. There is 8.6 x 8.6 cm subcutaneous edema of the right buttock. There is subcutaneous air and air in the gluteus musculature, series 2 images 37/87 through 44/87. There is degenerative and postoperative change of the lower spine. There is degenerative change of the right hip. CT/Pelvis without IV Contrast IMPRESSION: Subcutaneous edema and abnormal air in the soft tissues consistent with infection. No osseous destruction to suggest osteomyelitis. Electronically Signed: Pancho Cortes MD at 23:09 EST , Service support ,
[2019-07-24 22:06] VITALS: BP 111/56; PULSE 95; RESP 21; TEMP 36.6; O2SAT 93
[2019-07-24 22:41] LABS: Eosinophil 4 % (0-5); Lymphocyte 32 % (19-41); Monocyte 11 % (0-10); Myelocyte 2 (0-0); Neutrophil-Band 2 % (0-5); Neutrophil-Segmented 49 % (47-70); Total Cells Counted 100 (MANUAL DIFF)
[2019-07-24 22:42] LABS: Scan Smear per Review Criteria MANUAL DIFF
[2019-07-24 22:45] LABS: Absolute Neutrophil Count 4.5 X10^3/uL (2.0-7.7)
[2019-07-24 23:56] LABS: Hemoglobin A1c 6.6 % (4.2-6.3)
[2019-07-25] VITALS (13 sets, daily range): BP systolic 103–146; BP diastolic 48–65; PULSE 77–95; RESP 16–18; TEMP 36.1–36.9; O2SAT 93–98; BMI 36.6; BMI 34.7
--- NOTE | 2019-07-25 | PRES_PTH ---
PATIENT: JOSELITO GARNER LOC: MS3 U#:[id number] AGE/SX: 63/F ROOM: MS310 RE07/24/[address]: Dr. Stacy Chris MD : 1955 BED: 1 DIS: 07/31/2019 SPEC #: [id number] RECD: 07/25/19 15:31 STATUS: CODY REQ #: [id number] SIOBHAN: 07/25/19 00:[address]: Cristian Kaiser DEPT: SURGICAL PATHOLOGY RECD BY: Angel Caisllas ENTERED: 07/28/19 12:59 SP TYPE: PRESS SORE OTHR DR: MD Dr. Jacki Torres MD Dr. James A Slaby, MD Dr. Megan Oberhauser, Tissues: A - Ischium, NOS B - Ischium, NOS Procedures: PAS Fungus (control) Decalcification bone/plaque Special Stain Group I Surgery Specimen Level III AFB Stain (control) Comments: @ Ordering doctor for DEC edited from to @ by JERAMIE at 07/28/19 151 @ Ordering doctor for SUIV edited from to DR.JSLABY Hummel by JERAMIE at 07/28/19 1511 @ Submitting doctor edited from to DR.JSLABY Hummel by JERAMIE at 07/28/19 1511 HEADER OPERATION: Excision pressure sore, partial ostectomy PRE-OP DIAGNOSIS: Pressure ulcer, right buttock TISSUE SUBMITTED: A - Infected right ischial pressure sore, B - Bone right ischial pressure sore MICROSCOPIC DIAGNOSIS A. Right ischial pressure sore, excision: Pieces of skin with underlying tissue with focal ulceration, acute and chronic inflammation, abscess formation and fat necrosis. Special stains for acid fast bacilli and fungi are negative for organisms; matched controls are appropriate. B. Bone right ischial pressure sore: Pieces of bone, negative for acute osteomyelitis. See comment. SJ:shanna 07/31/19 COMMENT B. Hematopoietic marrow with trilineage hematopoiesis is noted. Case has been reviewed in consultation with Dr. Palacios who concurs with the above diagnosis. IDC:AM MICROSCOPIC DESCRIPTION Slides are reviewed. GROSS DESCRIPTION A - Received in fixative is one container labeled with the patient's name and designated infected right ischial pressure sore. The specimen consists of multiple irregular fragments of indurated, yellow soft tissue ranging in size from 7 to 8.9 cm. The larger fragments contain light catherine skin with cutaneous lesions. The largest fragment contains a cutaneous ulcer measuring 5.5 x 5.2 x 2.7 cm. Serial sections do not reveal mass lesions. Typewriter Operator Automatic sections are submitted in two cassettes. B - Received in fixative is one container labeled with the patient's name and designated bone right ischial pressure sore. The specimen consists of two irregular fragments of catherine bone ranging in size from 0.7 to 0.8 cm. The largest fragment is sectioned and submitted along with the smaller fragments in one cassette after decalcification. / AM:shanna 07/28/19 TC: 2 [facility]: 18399 x2, 61887, 10561 x2
[2019-07-25 00:15] LABS: Ferritin 181 ng/mL (8-252)
[2019-07-25] MEDS: Sodium Bicarbonate 650 MG Tablet 1300 MG PO ×2 (00:32→09:40)
[2019-07-25] MEDS: Pramipexole Di-HCl 0.125 MG Tablet PO (00:32)
[2019-07-25] MEDS: Gabapentin 600 MG Tablet PO ×2 (00:33→09:40)
[2019-07-25] MEDS: Atorvastatin Calcium 80 MG Tablet PO (00:33)
[2019-07-25] MEDS: Metoprolol Tartrate 25 MG Tablet PO (00:33)
[2019-07-25] MEDS: traZODone 50 MG Tablet 25 MG PO (00:33)
[2019-07-25] MEDS: busPIRone 5 MG Tablet 10 MG PO ×2 (00:34→09:40)
[2019-07-25] MEDS: Benztropine 2 MG Tablet 0.5 MG PO (00:34)
[2019-07-25] MEDS: Heparin Injection (Vial) 5,000 UNIT/ML VIAL 5000 UNIT SC (00:34)
[2019-07-25] MEDS: 0.9% Normal Saline 1,000 ML 100 ML IV ×2 (00:44→17:31)
[2019-07-25 00:46] LABS: Bedside Glucose 86 mg/dL (70-110)
[2019-07-25 01:26] LABS: Urine Sodium 72 mmol/L (Not Establ.)
[2019-07-25 04:51] LABS: M R Staph aureus DNA By PCR Negative (Negative); Probe Check PASS; Specimen Processing Control PASS; Staph aureus DNA By PCR NEGATIVE (Negative)
[2019-07-25] MEDS: 0.9% Saline Lock 10 ML Syringe IV ×2 (05:14→09:43)
[2019-07-25 05:52] LABS: Absolute Lymphocyte Count 4.37 X10^3/uL (0.83-4.51); Basophil# 0.13 X10^3/uL; Eosinophil# 0.31 X10^3/uL; Eosinophils% 2.5 % (0-5); Hematocrit 34.7 % (37-47); Hemoglobin 10.9 g/dL (12.0-15.0); Lymphocyte # 4.37 X10^3/ul (4.0); Lymphocyte % 34.8 % (19-41); Mean Corp Hgb Conc 31.4 g/dL (32-36); Mean Corpuscular Hgb 31.8 pg (27.0-32.0); Mean Corpuscular Volume 101.2 fL (81-99); Mean Platelet Vol. 8.6 fl (6.2-12.0); Monocyte# 1.23 X10^3/uL; Monocyte% 9.8 % (0-10); NRBC Flagged by Analyzer 0.2 % (0-5); Neutrophil # 6.02 X10^3/uL (2.7-7.7); Neutrophil % 48.1 % (47-70); Platelet Count 346 K/mm3 (150-450); RBC Distribution Width CV 14.8 % (11.6-14.6); RBC Distribution Width SD 54.8 fl (35.1-43.9); Red Blood Count 3.43 M/mm3 (4.2-5.4); White Blood Count 12.5 K/mm3 (4.4-11.0)
--- NOTE | 2019-07-25 05:55 | US_ITS ---
STUDY: RENAL ULTRASOUND - COMPLETE REASON FOR EXAM: Female, 63 years old. ILIANA TECHNIQUE: Ultrasound evaluation of the kidneys was performed with real-time and static sanchez-scale imaging. COMPARISON: None. FINDINGS: RIGHT KIDNEY: Normal location of the right kidney, which is normal in size. The right kidney measures 9.7 cm. There is a normal cortex of the right kidney. The renal cortex measures 1.3 cm. There is no right renal mass or cyst. There are no right renal calculi. There is no right hydronephrosis. DISTAL RIGHT URETER: There is non-visualization of the distal right ureter. There is no demonstrated right ureterovesical junction calculus. There is a visualized right ureteral jet. LEFT KIDNEY: Normal location of the left kidney, which is normal in size. The left kidney measures 9.5 cm. There is a normal cortex of the left kidney. The renal cortex measures 1.2 cm. There is no left renal mass or cyst. There are no left renal calculi. There is no left hydronephrosis. DISTAL LEFT URETER: There is non-visualization of the distal left ureter. There is no demonstrated left ureterovesical junction calculus. There is a visualized left ureteral jet. BLADDER: The distended urinary bladder has a volume of 271 ml. There is a normal wall thickness of the distended urinary bladder. There is no demonstrated mass within the urinary bladder. There are no demonstrated bladder calculi. US/Kidney and Bladder IMPRESSION: Normal ultrasound of the kidneys and urinary bladder. Electronically Signed: Pancho Cortes MD at 10:25 EST , Service support ,
[2019-07-25 05:59] LABS: International Normalized Ratio 1.2; Prothrombin Time (Protime)PT. 15.3 SECONDS (11.7-14.9)
[2019-07-25 06:00] LABS: Partial Thromboplast Time 33.2 Seconds (24.1-36.2)
[2019-07-25 06:15] LABS: Anion Gap 6 (5-15); BUN 20 mg/dL (7-18); Calcium,Total 8.8 mg/dL (8.5-10.1); Chloride 109 mmol/L (98-107); Creatinine, Serum 2.51 mg/dL (0.55-1.02); EST Glomerular Filtration Rate 21 mL/min (>60); Est Glom Filt Rate - Afr Amer 25 mL/min (>60); Estimated Creatinine Clearance 18.98 ml/min; Glucose 78 mg/dL (74-106); Potassium 4.2 mmol/L (3.5-5.1); Sodium Level 139 mmol/L (136-145)
[2019-07-25 06:40] LABS: Bedside Glucose 79 mg/dL (70-110)
[2019-07-25 08:21] LABS: Vitamin B12 1015 pg/mL (211-911)
--- NOTE | 2019-07-25 08:34 | NURSING ---
wound photo: right buttock
--- NOTE | 2019-07-25 09:03 | NURSING ---
Addendum entered by Miranda Liz 07/25/19 09:05: Pt verbalized understanding and states ok for surgery. Pt requested be notified. same completed Addendum entered by Miranda Lzi 07/25/19 09:05: Pt notified as well- but A&Ox2-3. During night was A&Ox1 per report Original Note: Ramon Morfin called and verbal consent obtained by this RN and erika Santillan RN. Ramon notified of potential surgery time at 1200 but notified that time could change depending and pt could go earlier than 1200 and possibly later. Understanding verbalized by Ramon. Ramon states he will be on his way shortly and that it takes about 1 hour to get here.
[2019-07-25] MEDS: DAKIN'S SOL HALF STRENGTH (=0.25%) 1 APPLIC TOPICAL (09:08)
[2019-07-25] MEDS: Venlafaxine XR 150 MG Capsule PO (09:39)
[2019-07-25] MEDS: OLANZapine 10 MG Tablet 20 MG PO (09:40)
[2019-07-25] MEDS: Pantoprazole Sodium 40 MG Tablet PO (09:41)
[2019-07-25] MEDS: Allopurinol 300 MG Tablet PO (09:41)
[2019-07-25 11:40] LABS: Bedside Glucose 84 mg/dL (70-110)
--- NOTE | 2019-07-25 12:00 | PCM.CONS.GEN ---
Reason for Consult Date of Consultation: 07/25/19 Reason for Consultation: Infected right buttock pressure sore. REFERRING PHYSICIAN: Dr. Villegas. MANAGER OF HOUSEKEEPING: Dr. Kaiser. History of Present Illness: The patient is a 63 y/o F with a history of diabetes mellitus has had recent falls and developed a right buttock pressure sore. [facility]. Wound culture showed Serratia marcescens, E. coli, and Anaerobic cocci. She was started on Cleocin and Levaquin was added. With worsening foul smelling drainage, she came to the ED. WBC was 8.8. She was started on Ceftriaxone. CT Pelvis was done which showed subcutaneous edema and abnormal air in the soft tissues consistent with infection. No osseous destruction to suggest osteomyelitis. I was asked to evaluate this patient for surgical options for treatment. 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) Blood glucose elevated (Chronic) Hypertension (Chronic) Hyperlipidemia (Chronic) Chronic back pain (Chronic) Impaired mobility (Chronic) Severe obesity (BMI 35.0-35.9 with comorbidity) (Chronic) CKD (chronic kidney disease), stage III (Chronic) Diabetes mellitus, type II (Chronic) Anxiety and depression (Chronic) RLS (restless legs syndrome) (Chronic) Nicotine vapor product user (Chronic) Former tobacco use (Chronic) Macrocytic anemia (Chronic) Allergies Iodinated Contrast Media [CONTRASTS] Allergy (Verified 07/24/19 16:36) Hives morphine Adverse Reaction (Verified 07/24/19 16:36) Nausea Home Medications: Ambulatory Orders Medication Instructions Recorded Allopurinol 300 mg PO DAILY 07/22/19 Benztropine Mesylate 0.5 mg PO QHS 07/22/19 Bumetanide 1 mg PO BID 07/22/19 Buspirone HCl 10 mg PO BID 07/22/19 Cyanocobalamin (Vitamin B-12) 1,000 mcg PO DAILY 07/22/19 [Vitamin B-12] Diazepam [Valium] 5 mg PO DAILY 07/22/19 Empagliflozin [Jardiance] 10 mg PO DAILY 07/22/19 Furosemide 40 mg PO BID 07/22/19 Gabapentin [Neurontin] 600 mg PO 4X/DAY 07/22/19 Hydroxyzine HCl 50 mg PO QHS PRN PRN 07/22/19 Ibuprofen/Diphenhydramine HCl 2 cap PO QHS PRN 07/22/19 [Advil Pm Liqui-Gels] Levothyroxine [Synthroid] 75 mcg PO DAILY 07/22/19 Multivitamin with Minerals 1 ea PO DAILY 07/22/19 [Multivitamins with Minerals] Olanzapine 20 mg PO DAILY 07/22/19 Omeprazole 40 mg PO DAILY 07/22/19 Potassium Chloride [K-Dur] 10 meq PO BID 07/22/19 Pramipexole Di-HCl [Mirapex] 0.125 mg PO QHS 07/22/19 Psyllium Husk [Fiber] 4 cap PO DAILY 07/22/19 Rosuvastatin Calcium 40 mg PO QHS 07/22/19 Sodium Bicarbonate 2 tab PO BID 07/22/19 Torsemide 20 mg PO BID 07/22/19 Venlafaxine HCl [Venlafaxine HCl 150 mg PO DAILY 07/22/19 ER] traZODone [Desyrel] 25 mg PO QHS 07/22/19 Amox/Clavulanate Tablet [Augmentin 1 tab PO Q12H 07/24/19 Tablet] Aspirin [Aspir 81] 81 mg PO QHS 07/24/19 Cholecalciferol (Vitamin D3) 5,000 unit PO DAILY 07/24/19 [Vitamin D3] Metoprolol Tartrate 25 mg PO BID 07/24/19 Mv-Min/FA/Vit K/Lycop/Lut/Zeax 1 tab PO TID 07/24/19 [Ocuvite Eye Plus Multi Tablet] Surgical History: - - Lumbar spinal surgery with hardware, at least 4 previous back surgeries, cholecystectomy, appendectomy, hysterectomy. 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 Paternal History Items: - - Patient denies any market maternal or paternal family history including heart disease, diabetes, cancer. Review of Systems Comment: Constitutional: Reports: Anorexia, Malaise, Weakness, Fatigue. Denies: Chills, Fever, Weight Change. HEENT: Denies: Head Aches, Sinus Congestion, Sinus Drainage. Cardiovascular: Denies: Chest Pain, Palpitations. Respiratory: Reports: Shortness of breath upon exertion. Denies: Cough, Shortness of breath at rest, Sputum production. Gastrointestinal: Denies: Abdominal Pain, Nausea, Vomiting. Genitourinary: Denies: Dysuria. Musculoskeletal: Reports: Back Pain, Joint Pain. Denies: Joint Tenderness. Skin: Reports: Skin Changes, Wounds. Denies: Rash. Neurological: Denies: Numbness, Tingling, Focal weakness. Psychiatric: Reports: Anxiety, Depression. Denies: Homicidal Ideations, Suicidal Ideations. Hematologic/ Lymphatic: Reports: Easy Bruising, Easy Bleeding Patient Problems: Active and Suspected Problems ILIANA (acute kidney injury) (Acute) Intractable low back pain (Acute) - Physical Exam Vitals/I&O's: Physical Examination: General: awake, alert, oriented x 3 and cooperative. Skin: Right buttock pressure sore, tunneling. Measures 6 x 6 x 3 cm. Undermining measures 4 cm. Purulent foul-smelling drainage present. No exposed bone but it is palpable. Suspect bony involvement and osteomyelitis. Stage IV pressure sore. HEENT: EOMI, PERRLA, dry MM. Lungs: CTA bilaterally, moderate effort. Heart: Regular rate and rhythm. Abdomen: soft, obese, nondistended. Extremities: no cyanosis, clubbing, mild edema in lower extremities. Neurological: cranial nerves II-XII grossly normal. Psychiatric: affect appears fatigued, flat. Vital Signs Temp Pulse Resp BP Pulse Ox 97.5 F L 89 16 103/55 L 94 07/25/19 11:18 07/25/19 11:18 07/25/19 11:18 07/25/19 11:18 07/25/19 11:18 Oxygen Flow Rate (L/min) 2 Oxygen Delivery Method Nasal Cannula Weight: 206 lb 9.17 oz Body Mass Index (BMI) 36.6 Intake and Output for Last 24 Hours 07/23/19 07/24/19 07/25/19 23:59 23:59 23:59 Intake Total 1050 / 1050 700 / 700 Output Total 700 / 700 Balance 1050 / 1050 0 / 0 Laboratory Results 07/24/19 17:25: Urine Color Yellow, Urine Clarity Clear, Urine pH 5.0, Ur Specific Elizabeth 1.020, Urine Protein 30 H, Urine Glucose (UA) Normal, Urine Ketones Negative, Urine Occult Blood 10 H, Urine Nitrite Negative, Urine Bilirubin Negative, Urine Urobilinogen Normal, Ur Leukocyte Esterase Negative, Urine RBC 0 SEEN, Urine WBC 0 SEEN, Ur Squamous Epith Cells 0 SEEN, Ur Transition Epith Cell 0-5 SEEN, Ur Renal Epithelial Cell 0-5 SEEN, Urine Bacteria 0 SEEN, Hyaline Casts 0-5 SEEN, Urine Mucus 0 SEEN 07/24/19 17:25: Ur Random Sodium 72 07/24/19 17:25: Urine Creatinine 55.40 07/24/19 18:13: WBC 8.8, RBC 2.91 L, Hgb 9.1 L, Hct 29.1 L, MCV 100.0 H, MCH 31.3, MCHC 31.3 L, RDW Std Deviation 53.5 H, RDW Coeff of Harper 14.6, Plt Count 225, MPV 8.9, Immature Gran % (Auto) JACQUARD LACE WEAVER, Neut % (Auto) JACQUARD LACE WEAVER, Lymph % (Auto) JACQUARD LACE WEAVER, Isabela % (Auto) JACQUARD LACE WEAVER, Eos % (Auto) JACQUARD LACE WEAVER, Baso % (Auto) JACQUARD LACE WEAVER, Absolute Neuts (auto) 4.5, Absolute Lymphs (auto) 2.80, Total Counted 100, Neutrophils % (Manual) 49, Band Neutrophils % 2, Lymphocytes % (Manual) 32, Monocytes % (Manual) 11 H, Eosinophils % (Manual) 4, Myelocytes % 2 H, Nucleated RBC % 0, Diff Path Review May foll, Platelet Estimate ADEQUATE, Anisocytosis 1+, Microcytosis 1+ 07/24/19 18:13: Sodium 136, Potassium 5.0, Chloride 105, Carbon Dioxide 27.0, Anion Gap 4 L, BUN 25 H, Creatinine 2.97 H, Estim Creat Clear Calc 16.04, Est GFR (MDRD) Af Amer 20 L, Est GFR (MDRD) Non-Af 17 L, BUN/Creatinine Ratio 8.4 L, Glucose 111 H, Calcium 10.0, Troponin I < 0.015 07/24/19 18:13: Magnesium 2.7 H, Iron 105, TIBC 302, Iron Saturation 34.8 07/24/19 18:13: Hemoglobin A1c 6.6 H 07/24/19 21:58: Ferritin 181, Folate 57.70 H 07/24/19 21:58: Vitamin B12 1015 H 07/24/19 23:50: S.aureus Protein A PCR NEGATIVE, MRSA (PCR) Negative 07/25/19 00:26: POC Glucose 86 07/25/19 05:28: Sodium 139, Potassium 4.2, Chloride 109 H, Carbon Dioxide 24.0, Anion Gap 6, BUN 20 H, Creatinine 2.51 H, Estim Creat Clear Calc 18.98, Est GFR (MDRD) Af Amer 25 L, Est GFR (MDRD) Non-Af 21 L, BUN/Creatinine Ratio 8.0 L, Glucose 78, Calcium 8.8 07/25/19 05:28: WBC 12.5 H, RBC 3.43 L, Hgb 10.9 L, Hct 34.7 L, MCV 101.2 H, MCH 31.8, MCHC 31.4 L, RDW Std Deviation 54.8 H, RDW Coeff of Harper 14.8 H, Plt Count 346, MPV 8.6, Immature Gran % (Auto) 3.800 H, Neut % (Auto) 48.1, Lymph % (Auto) 34.8, Isabela % (Auto) 9.8, Eos % (Auto) 2.5, Baso % (Auto) 1.0, Absolute Neuts (auto) 6.0, Absolute Lymphs (auto) 4.37, Nucleated RBC % 0.2 07/25/19 05:28: PT 15.3 H, INR 1.2, APTT 33.2 07/25/19 06:33: POC Glucose 79 07/25/19 11:20: POC Glucose 84 Current Medications Acetaminophen (Tylenol) 650 mg PO Q6H PRN PRN PRN Reason: Pain Score 1-3/Temp > 100.7 F Al Hydroxide/Mg Hydroxide (Mylanta Ii) 30 ml PO Q6H PRN PRN PRN Reason: Gastric Burning Albuterol Sulfate (Ventolin Aerosols) 2.5 mg INHALATION Q2H PRN PRN PRN Reason: Shortness of Breath/Wheezing Allopurinol (Zyloprim) 300 mg PO DAILY DUONG Last Admin: 07/25/19 09:41 Dose: 300 mg Documented by: Atorvastatin Calcium (Lipitor) 80 mg PO QHS [facility] Last Admin: 07/25/19 00:33 Dose: 80 mg Documented by: Benztropine Mesylate (Cogentin) 0.5 mg PO QHS [facility] Last Admin: 07/25/19 00:34 Dose: 0.5 mg Documented by: Buspirone HCl (Buspar) 10 mg PO BID [facility] Last Admin: 07/25/19 09:40 Dose: 10 mg Documented by: Cyanocobalamin (Vitamin B12) 1,000 mcg PO DAILY [facility] Diazepam (Valium) 5 mg PO DAILY [facility] Gabapentin (Neurontin) 600 mg PO 4X/DAY [facility] Last Admin: 07/25/19 09:40 Dose: 600 mg Documented by: Glucagon () 1 mg IM .X1 PRN PRN Reason: Hypoglycemia Guaifenesin (Robitussin) 20 ml PO Q4H PRN PRN PRN Reason: COUGH Heparin Sodium (Porcine) (Heparin Na) 5,000 unit SC Q12 [facility] Last Admin: 07/25/19 09:37 Dose: Not Given Documented by: Hydralazine HCl (Apresoline Iv) 10 mg IV Q4H PRN PRN PRN Reason: SBP > 160 Hydroxyzine Pamoate (Vistaril Pamoate Capsule) 50 mg PO QHS PRN PRN PRN Reason: ANXIETY Sodium Chloride () 1,000 mls @ 100 mls/hr IV .Q10H [facility] Last Admin: 07/25/19 09:07 Dose: Not Given Documented by: Ceftriaxone Sodium (Rocephin) 1 gm in 50 mls @ 100 mls/hr IV Q24H [facility] Dextrose (Dextrose 10%-Water) 250 mls @ 999 mls/hr IV .Q16M PRN; Protocol PRN Reason: HYPOGLYCEMIA Sodium Chloride () 250 mls @ 15 mls/hr IV .[id number] PRN PRN Reason: Saline Flush Sodium Chloride () 250 mls @ 15 mls/hr IV .[id number] PRN PRN Reason: Additional IVPB Infusion Insulin Human Lispro (Humalog Kwikpen (Bkc)) 0 unit SC ACHS [facility]; Protocol Last Admin: 07/25/19 06:38 Dose: Not Given Documented by: Levothyroxine Sodium (Synthroid) 75 mcg PO DAILY@0600 [facility] Last Admin: 07/25/19 05:52 Dose: Not Given Documented by: Magnesium Hydroxide (Milk Of Magnesia) 30 ml PO DAILY PRN PRN PRN Reason: Constipation Melatonin (Melatonin) 3 mg PO QHS PRN PRN PRN Reason: INSOMNIA Metoprolol Tartrate (Lopressor (Beta Armani)) 25 mg PO BID [facility] Last Admin: 07/25/19 00:33 Dose: 25 mg Documented by: Morphine Sulfate () 2 mg IV Q3H PRN PRN PRN Reason: Pain Score 6-10/10 Nutritional Formula (Lactose Free) (Glucerna Shake) 120 ml PO 4X/DAY [facility] Last Admin: 07/25/19 09:08 Dose: Not Given Documented by: Olanzapine (Zyprexa) 20 mg PO DAILY [facility] Last Admin: 07/25/19 09:40 Dose: 20 mg Documented by: Ondansetron HCl (Zofran) 4 mg IV Q8H PRN PRN PRN Reason: NAUSEA/VOMITING Oxycodone HCl (Oxyir) 5 mg PO Q4H PRN PRN PRN Reason: Pain Score 4-5/10 Pantoprazole Sodium (Protonix) 40 mg PO DAILY [facility] Last Admin: 07/25/19 09:41 Dose: 40 mg Documented by: Potassium Chloride (K-Dur) 10 meq PO BID [facility] Last Admin: 07/25/19 00:33 Dose: 10 meq Documented by: Pramipexole Dihydrochloride (Mirapex) 0.125 mg PO QHS [facility] Last Admin: 07/25/19 00:32 Dose: 0.125 mg Documented by: Prochlorperazine Edisylate (Compazine Iv) 5 mg IV Q4H PRN PRN PRN Reason: Breakthrough nausea/vomiting Sodium Bicarbonate (Sodium Bicarbonate) 1,300 mg PO BID [facility] Last Admin: 07/25/19 09:40 Dose: 1,300 mg Documented by: Sodium Chloride () 10 - 40 ml IV UD PRN PRN Reason: SALINE FLUSH Last Admin: 07/25/19 09:43 Dose: 10 ml Documented by: Sodium Hypochlorite (Dakins Solution 0.25% (1/2 Strength)) 1 applic TOPICAL BID [facility]; Protocol Last Admin: 07/25/19 09:08 Dose: 1 applicatio Documented by: Throat Lozenges (Cepacol Sore Throat Lozenge) 1 lozenge MUCOUS MEM Q2H PRN PRN PRN Reason: Sore throat or cough Tizanidine HCl (Zanaflex) 2 mg PO Q8H PRN PRN PRN Reason: back strain, spasms, severe Trazodone HCl (Desyrel) 25 mg PO QHS [facility] Last Admin: 07/25/19 00:33 Dose: 25 mg Documented by: Venlafaxine HCl (Effexor Xr) 150 mg PO DAILY [facility] Last Admin: 07/25/19 09:39 Dose: 150 mg Documented by: Assessment/Plan All Active Problems Pressure ulcer, buttock, right, unstageable (Acute) Decreased renal function (Acute) ILIANA (acute kidney injury) (Acute) Intractable low back pain (Acute) 1. Infected right buttock pressure sore, Stage IV. 2. Necrotizing soft tissue infection. 2. Diabetes mellitus. 3. Smoker. Continue Ceftriaxone. Preop cultures showed Serratia marcescens and E. coli and Anaerobic cocci. CT Pelvis reviewed. There is foul smelling odor to the pressure sore. Suspect necrotizing soft tissue infection. Will begin Dakin's dressing changes. Recommend operative intervention with excision of the pressure sore. I suspect bony involvement and a partial ostectomy will be done as well. Postop can proceed with wound care with the VAC. Tissue and bone will be sent to Pathology for analysis to rule out carcinoma and to evaluate for osteomyelitis and to Microbiology for culture. Since the patient is not confined to bed, there is a better chance at healing. Depending on the healing process, a muscle flap or fasciocutaneous flap may be necessary. Anticipate increased metabolic demands from the infection and from the pressure sore. Will check a Prealbumin and encourage nutritional supplementation with protein to help the healing process. With the foul smelling drainage and suspected necrotizing soft tissue infection and history of diabetes mellitus, the patient is at increased risk for a necrotizing process which can be life threatening. So will urgently take the patient to surgery today. After discharge, can return to the [facility]. Patient was informed of the risks and complications of the procedure including alternatives to surgery. These were discussed with the patient personally. Patient voices understanding and wishes to proceed. Encouraged patient to stop smoking as it may have deleterious effects on wound healing. Code Visit Inpatient E&M: 20924 Init Hosp L3 - -57 Modifier ICD-10 - L89.314, M79.89, E11.9, F17.200
--- NOTE | 2019-07-25 12:35 | CASEMGMT ---
Addendum entered by Tomas Sotelo 07/25/19 15:41: [facility]: ph: [phone] fax: [phone] Addendum entered by Tomas Sotelo 07/25/19 13:04: states if pt does need to go to a SNF @ discharge, he thinks their 1st preference would be for pt to return to [facility] in [place]. He states he already has a list of other SNF's to look over if SNF is needed, as they may decide to have pt go elsewhere. SW, Kayleen Holliday, made aware. Original Note: RN CM INTERN CM to room to meet with patient for initial transition planning/care coordination assessment. RN CM introduced self and role at [facility]. Pt resting in bed in no distress at this time. Pt is alert but noted with some forgetfulness/confusion at this time. @ bedside and consents to assessment at this time. Care providers, pharmacy, and demographics verified/updated at this time. PCP: Dr Zaira Donaldson--had initial appt scheduled for yesterday as a new patient, but ended up coming to [facility] before making it to the appt. (Pt's previous PCP was Dr Radha Alfonso in [place]). states they are also in the process of pt getting established with PCP @ [facility] Specialists: W[facility], Dr Kaiser, Dr Mcnally--pain mgmt, Dr Triplett in [place]--nephrology, Dr Gutiérrez--psychiatrist Preferred Pharmacy: [facility]--[place] Insurance: [facility], [place] [facility] benefits Prescription Benefit: Yes Living Will/HPOA: States does not have LW or HCPOA . Pt/ interested in more information. made aware paperwork can not be completed with patient unless she is A/O. made aware if pt becomes A/O while @ [facility], to ask for SW for assistance with completing AD, if pt wishes to do so. voices understanding. Provided information on advanced directives and Given Social Service rac card with number to call if chooses in the future to utilize [facility] social work for advanced directive completion. LNOK: , Ramon. 4 adult children Living Arrangements: Lives with her . is supportive and assists with care. states if pt does return home @ discharge, that he would like aide services through HHC. Transportation: DME: shower chair, grab bars, hand held shower, walkers, rollators, W/C, glucometer, O2 @ 2 L/[facility] (has portability and concentrator). states he thinks he has a portable tank in his car for pt to use if she discharges home. Call placed to [facility] and confirmed pt does have O2 @ 2 L/M continuously. Pt also has/uses a CPAP. states he is unable to bring in pt's unit from home today, but will try to bring it in tomorrow. Miranda, pt's RN, aware. states pt could use a Medical alert button. given a list of companies that provide these. HHC/SNF: Hx of being @ [facility]--just returned home from there about 2 weeks ago. [facility] per . [facility] placed to [facility] and they were made aware pt is currently @ [facility]. They confirmed pt is active with them and is receiving senior living services only. They were made aware, that if pt returns home @ discharge, that PT/OT and aides will be added. Order placed for resumption of HHC services. PT/OT and aide services also added. Discussed discharge planning with who states it's up to her as he pointed to his , when asking if wishes are for pt to go to a SNF @ discharge or Home. Pt shook her head when asked about SNF, stating she wants to go home. CM/SW to follow for discharge planning/needs. PLAN: TBD. SNF vs Home w/HHC. Pt's preference is to return home with resumption of HHC services if able and is agreeable. Pt remains w/some confusion at this time. Undetermined at this time level of wound care needed at discharge and PT/OT evals pending. SW/CM to follow for discharge planning. Deirdre CORNEJON RN CM
--- NOTE | 2019-07-25 13:40 | PCA ---
pt off floor
[2019-07-25 14:09] LABS: Pathologist Review Reviewed
--- NOTE | 2019-07-25 14:13 | OP.PCM_ITS ---
Report of Operation Date of Procedure: 07/25/19 Pre-Operative Diagnosis: 1. Infected right buttock pressure sore, Stage IV. 2. Diabetes mellitus. 3. Smoker. Post-Operative Diagnosis: 1. 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 2. Diabetes mellitus. 3. Smoker. Surgery/Procedure Performed:: Excision infected necrotizing right buttock and sacral pressure sore, Stage IV, with partial ostectomy for osteomyelitis. Description of Surgical Findings:: The patient is a 63 y/o F with a history of diabetes mellitus has had recent falls and developed a right buttock pressure sore. She was seen at the [facility] on 07/15/19. Wound culture showed Serratia marcescens, E. coli, and Anaerobic cocci. She was started on Cleocin and Levaquin was added. With worsening foul smelling drainage, she came to the ED. WBC was 8.8. She was started on Ceftriaxone. CT Pelvis was done which showed subcutaneous edema and abnormal air in the soft tissues consistent with infection. No osseous destruction to suggest osteomyelitis. I was asked to evaluate this patient for surgical options for treatment. Patient was informed of the risks and complications of the procedure including alternatives to surgery. These were discussed with the patient personally. Patient voices understanding and wishes to proceed. Size of defect right buttock and sacral area - 9.5 x 13 x 4.5 cm. call center receptionist: None Type of Anesthesia:: General Specimen's removed: 1. Infected right buttock and sacral pressure sore soft tissue to Pathology and Microbiology. 2. Infected right buttock and sacral pressure sore bone to Pathology and Microbiology. Drains: None. Estimated Blood Loss (mL): 250 ml. Description of Procedure: Patient was taken to OR in supine position and was placed under general anesthesia. She was then placed in the prone position. The right buttock area was prepped and draped in the usual fashion. SCD's were placed for DVT prophylaxis. Perioperative antibiotics were given intravenously. Using xylocaine with epinephrine, the right buttock pressure sore was infiltrated. After waiting 5 minutes for the anesthetic to take effect, I palpated several centimeters of undermining. A wide incision was made around the pressure sore. Dissection was carried down to the gluteus herminio muscle. There was tunnelling underneath the muscle to involve the underlying gluteus medius and gluteus minimus muscles. There was nonviable necrotic muscle deep to the gluteus herminio. Further excision of necrotic tissue extended into the right sacral area down to the sacral bone. A partial ostectomy was done to evaluate for osteomyelitis. It was done with rongeurs. Several specimens were taken. A rasp was used to smooth out the bony edges. Half the soft tissue and half the bone was sent to Pathology for analysis to rule out carcinoma and to evaluate for osteomyelitis. Half the soft tissue and half the bone was sent to Microbiology for culture. A positive culture will necessitate antibiotic therapy. Operative blood loss was abouit 250 ml. The wound was irrigated with saline. Hemostasis was obtained with electrocautery. Bone wax was used to close off the raw bony edges. The size of the defect after excision of the infected necrotizing pressure sore was 9.5 x 13 x 4.5 cm. The wound was dressed with Mepitel nonadherent dressing followed by Kerlix gauze and Betadine followed by dry Kerlix gauze and ABD pads compression dressing. No evidence of bleeding noted at end of the procedure. Patient tolerated the procedure well and was sent to PACU in satisfactory condition. Patient will be sent upstairs for continued postop care. The VAC will be applied tomorrow. Grafts/Implants Used: None. - Complications None. - Admit VTE Documentation VTE Present on Admission: No VTE Mechan Device Prophylaxis: SCD's VTE Pharm Prophylaxis ordered?: Yes Code Visit Surgery Charges CPT - 67188 ICD-10 - L89.154, L89.314, M79.89, E11.9, Z72.0
[2019-07-25 15:06] LABS: Bedside Glucose 82 mg/dL (70-110)
[2019-07-25 16:25] LABS: Bedside Glucose 83 mg/dL (70-110)
--- NOTE | 2019-07-25 17:37 | PN_ITS ---
Patient Problems: Active and Suspected Problems ILIANA (acute kidney injury) (Acute) Intractable low back pain (Acute) Subjective: Patient was seen and examined today, she returned from surgery this afternoon- she had an excision of her right buttocks and sacral pressure sore with partial ostectomy for osteomyelitis--she is somnolent but responds to verbal stimuli and painful stimuli. She is not able to carry on a conversation at this time. Patient appears in no distress at this time. - Physical Exam Vitals/I&O's: Vital Signs Temp Pulse Resp BP Pulse Ox 98.4 F 87 18 132/55 H 96 07/25/19 15:25 07/25/19 15:33 07/25/19 15:25 07/25/19 15:25 07/25/19 15:25 Oxygen Flow Rate (L/min) 2 Oxygen Delivery Method Nasal Cannula Weight: 93.7 kg Body Mass Index (BMI) 36.6 Intake and Output for Last 24 Hours 07/23/19 07/24/19 07/25/19 23:59 23:59 23:59 Intake Total 1050 / 1050 1000 / 1000 Output Total 700 / 700 Balance 1050 / 1050 300 / 300 General: Well developed, Lethargic HEENT: Atraumatic, PERRLA, Normocephalic Oral: Moist Mucosa Neck: Supple, No JVD, Negative Carotid Bruits Lungs: Clear to auscultation, Normal air movement, No rhonchi, No wheeze, No rales Cardiovascular: Regular rate, Regular Rhythm, Normal S1, Normal S2, No murmurs, PMI Normal Abdomen: Bowel Sounds Present, Soft, Non Tender, Non-Distended, Obese Extremities: No clubbing, No cyanosis, No edema, Capillary Refill Less than 3 Seconds Neurological: Cranial nerves II-XII grossly intact, Neuro grossly intact, Sensory exam intact to light touch and pain Psych/Mental Status: - - Patient is lethargic, she responds slightly to verbal and painful stimuli Microbiology Past 72 Hours 07/25/19 14:02 Bone - Other Gram Stain - Final 07/25/19 14:02 Tissue - Other Gram Stain - Final Laboratory Results 07/24/19 17:25: Urine Color Yellow, Urine Clarity Clear, Urine pH 5.0, Ur Specific [place] 1.020, Urine Protein 30 H, Urine Glucose (UA) Normal, Urine Ketones Negative, Urine Occult Blood 10 H, Urine Nitrite Negative, Urine Bilirubin Negative, Urine Urobilinogen Normal, Ur Leukocyte Esterase Negative, Urine RBC 0 SEEN, Urine WBC 0 SEEN, Ur Squamous Epith Cells 0 SEEN, Ur Transition Epith Cell 0-5 SEEN, Ur Renal Epithelial Cell 0-5 SEEN, Urine Bacteria 0 SEEN, Hyaline Casts 0-5 SEEN, Urine Mucus 0 SEEN 07/24/19 17:25: Ur Random Sodium 72 07/24/19 17:25: Urine Creatinine 55.40 07/24/19 18:13: WBC 8.8, RBC 2.91 L, Hgb 9.1 L, Hct 29.1 L, MCV 100.0 H, MCH 31.3, MCHC 31.3 L, RDW Std Deviation 53.5 H, RDW Coeff of Harper 14.6, Plt Count 225, MPV 8.9, Immature Gran % (Auto) CONVEYANCER, Neut % (Auto) CONVEYANCER, Lymph % (Auto) CONVEYANCER, [place] % (Auto) CONVEYANCER, Eos % (Auto) CONVEYANCER, Baso % (Auto) CONVEYANCER, Absolute Neuts (auto) 4.5, Absolute Lymphs (auto) 2.80, Total Counted 100, Neutrophils % (Manual) 49, Band Neutrophils % 2, Lymphocytes % (Manual) 32, Monocytes % (Manual) 11 H, Eosi nophils % (Manual) 4, Myelocytes % 2 H, Nucleated RBC % 0, Diff Path Review Reviewed, Platelet Estimate ADEQUATE, Anisocytosis 1+, Microcytosis 1+ 07/24/19 18:13: Sodium 136, Potassium 5.0, Chloride 105, Carbon Dioxide 27.0, Anion Gap 4 L, BUN 25 H, Creatinine 2.97 H, Estim Creat Clear Calc 16.04, Est GFR (MDRD) Af Amer 20 L, Est GFR (MDRD) Non-Af 17 L, BUN/Creatinine Ratio 8.4 L, Glucose 111 H, Calcium 10.0, Troponin I < 0.015 07/24/19 18:13: Magnesium 2.7 H, Iron 105, TIBC 302, Iron Saturation 34.8 07/24/19 18:13: Hemoglobin A1c 6.6 H 07/24/19 21:58: Ferritin 181, Folate 57.70 H 07/24/19 21:58: Vitamin B12 1015 H 07/24/19 23:50: S.aureus Protein A PCR NEGATIVE, MRSA (PCR) Negative 07/25/19 00:26: POC Glucose 86 07/25/19 05:28: Sodium 139, Potassium 4.2, Chloride 109 H, Carbon Dioxide 24.0, Anion Gap 6, BUN 20 H, Creatinine 2.51 H, Estim Creat Clear Calc 18.98, Est GFR (MDRD) Af Amer 25 L, Est GFR (MDRD) Non-Af 21 L, BUN/Creatinine Ratio 8.0 L, Glucose 78, Calcium 8.8 07/25/19 05:28: WBC 12.5 H, RBC 3.43 L, Hgb 10.9 L, Hct 34.7 L, MCV 101.2 H, MCH 31.8, MCHC 31.4 L, RDW Std Deviation 54.8 H, RDW Coeff of Harper 14.8 H, Plt Count 346, MPV 8.6, Immature Gran % (Auto) 3.800 H, Neut % (Auto) 48.1, Lymph % (Auto) 34.8, [place] % (Auto) 9.8, Eos % (Auto) 2.5, Baso % (Auto) 1.0, Absolute Neuts (auto) 6.0, Absolute Lymphs (auto) 4.37, Nucleated RBC % 0.2 07/25/19 05:28: PT 15.3 H, INR 1.2, APTT 33.2 07/25/19 06:33: POC Glucose 79 07/25/19 11:20: POC Glucose 84 07/25/19 14:39: POC Glucose 82 07/25/19 16:14: POC Glucose 83 Current Medications Acetaminophen (Tylenol) 650 mg PO Q6H PRN PRN PRN Reason: Pain Score 1-3/Temp > 100.7 F Al Hydroxide/Mg Hydroxide (Mylanta Ii) 30 ml PO Q6H PRN PRN PRN Reason: Gastric Burning Albuterol Sulfate (Ventolin Aerosols) 2.5 mg INHALATION Q2H PRN PRN PRN Reason: Shortness of Breath/Wheezing Allopurinol (Zyloprim) 300 mg PO DAILY [facility] Last Admin: 07/25/19 09:41 Dose: 300 mg Documented by: Atorvastatin Calcium (Lipitor) 80 mg PO QHS [facility] Last Admin: 07/25/19 00:33 Dose: 80 mg Documented by: Benztropine Mesylate (Cogentin) 0.5 mg PO QHS [facility] Last Admin: 07/25/19 00:34 Dose: 0.5 mg Documented by: Buspirone HCl (Buspar) 10 mg PO BID [facility] Last Admin: 07/25/19 09:40 Dose: 10 mg Documented by: Cyanocobalamin (Vitamin B12) 1,000 mcg PO DAILY [facility] Last Admin: 07/25/19 15:33 Dose: Not Given Documented by: Diazepam (Valium) 5 mg PO DAILY [facility] Last Admin: 07/25/19 15:33 Dose: Not Given Documented by: Gabapentin (Neurontin) 600 mg PO 4X/DAY [facility] Last Admin: 07/25/19 15:34 Dose: Not Given Documented by: Glucagon () 1 mg IM .X1 PRN PRN Reason: Hypoglycemia Guaifenesin (Robitussin) 20 ml PO Q4H PRN PRN PRN Reason: COUGH Heparin Sodium (Porcine) (Heparin Na) 5,000 unit SC Q12 [facility] Last Admin: 07/25/19 09:37 Dose: Not Given Documented by: Hydralazine HCl (Apresoline Iv) 10 mg IV Q4H PRN PRN PRN Reason: SBP > 160 Hydroxyzine Pamoate (Vistaril Pamoate Capsule) 50 mg PO QHS PRN PRN PRN Reason: ANXIETY Sodium Chloride () 1,000 mls @ 100 mls/hr IV .Q10H [facility] Last Infusion: 07/25/19 17:31 Dose: Infused Documented by: Ceftriaxone Sodium (Rocephin) 1 gm in 50 mls @ 100 mls/hr IV Q24H [facility] Dextrose (Dextrose 10%-Water) 250 mls @ 999 mls/hr IV .Q16M PRN; Protocol PRN Reason: HYPOGLYCEMIA Sodium Chloride () 250 mls @ 15 mls/hr IV .[id number] PRN PRN Reason: Saline Flush Sodium Chloride () 250 mls @ 15 mls/hr IV .[id number] PRN PRN Reason: Additional IVPB Infusion Insulin Human Lispro (Humalog Kwikpen (Bkc)) 0 unit SC ACHS [facility]; Protocol Last Admin: 07/25/19 15:33 Dose: Not Given Documented by: Levothyroxine Sodium (Synthroid) 75 mcg PO DAILY@0600 [facility] Last Admin: 07/25/19 05:52 Dose: Not Given Documented by: Magnesium Hydroxide (Milk Of Magnesia) 30 ml PO DAILY PRN PRN PRN Reason: Constipation Melatonin (Melatonin) 3 mg PO QHS PRN PRN PRN Reason: INSOMNIA Metoprolol Tartrate (Lopressor (Beta Armani)) 25 mg PO BID [facility] Last Admin: 07/25/19 15:33 Dose: Not Given Documented by: Metronidazole (Flagyl) 500 mg PO TID [facility] Morphine Sulfate () 2 mg IV Q3H PRN PRN PRN Reason: Pain Score 6-10/10 Nutritional Formula (Lactose Free) (Glucerna Shake) 120 ml PO 4X/DAY [facility] Last Admin: 07/25/19 15:34 Dose: Not Given Documented by: Olanzapine (Zyprexa) 20 mg PO DAILY [facility] Last Admin: 07/25/19 09:40 Dose: 20 mg Documented by: Ondansetron HCl (Zofran) 4 mg IV Q8H PRN PRN PRN Reason: NAUSEA/VOMITING Oxycodone HCl (Oxyir) 5 mg PO Q4H PRN PRN PRN Reason: Pain Score 4-5/10 Pantoprazole Sodium (Protonix) 40 mg PO DAILY [facility] Last Admin: 07/25/19 09:41 Dose: 40 mg Documented by: Potassium Chloride (K-Dur) 10 meq PO BID [facility] Last Admin: 07/25/19 15:33 Dose: Not Given Documented by: Pramipexole Dihydrochloride (Mirapex) 0.125 mg PO QHS [facility] Last Admin: 07/25/19 00:32 Dose: 0.125 mg Documented by: Prochlorperazine Edisylate (Compazine Iv) 5 mg IV Q4H PRN PRN PRN Reason: Breakthrough nausea/vomiting Sodium Bicarbonate (Sodium Bicarbonate) 1,300 mg PO BID [facility] Last Admin: 07/25/19 09:40 Dose: 1,300 mg Documented by: Sodium Chloride () 10 - 40 ml IV UD PRN PRN Reason: SALINE FLUSH Last Admin: 07/25/19 09:43 Dose: 10 ml Documented by: Sodium Hypochlorite (Dakins Solution 0.25% (1/2 Strength)) 1 applic TOPICAL BID [facility]; Protocol Last Admin: 07/25/19 09:08 Dose: 1 applicatio Documented by: Throat Lozenges (Cepacol Sore Throat Lozenge) 1 lozenge MUCOUS MEM Q2H PRN PRN PRN Reason: Sore throat or cough Tizanidine HCl (Zanaflex) 2 mg PO Q8H PRN PRN PRN Reason: back strain, spasms, severe Trazodone HCl (Desyrel) 25 mg PO QHS [facility] Last Admin: 07/25/19 00:33 Dose: 25 mg Documented by: Venlafaxine HCl (Effexor Xr) 150 mg PO DAILY [facility] Last Admin: 07/25/19 09:39 Dose: 150 mg Documented by: Medical Necessity - Tobacco Use Smoking Status: Current every day smoker Tobacco Use: Vapor Assessment/Plan All Active Problems Pressure ulcer, buttock, right, unstageable (Acute) Decreased renal function (Acute) ILIANA (acute kidney injury) (Acute) Intractable low back pain (Acute) #1 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 coli-status post debridement postop day 0-wound care per plastic surgery, patient will need a wound VAC placed, I talked with plastic surgery, they would like anaerobic antibiotic coverage, I have decided to change the patient to meropenem which would cover both Serratia and E. coli from her recent wound culture and cover anaerobes. I will stop her Rocephin #2 generalized debility #3 type 2 diabetes #4 essential hypertension #5 morbid obesity #6 chronic kidney disease stage III-continue IV fluids, recheck labs #7 anxiety/depressive disorder-a question that the patient could have an underlying bipolar or schizoaffective disorder, I have decided to eliminate some of her medications including her once a day Valium. I have kept the patient on her current psychiatric medications for the most part. Code Visit Inpatient E&M: 17718 Subs Hosp L2
--- NOTE | 2019-07-25 17:58 | NURSING ---
Pt awakened to complete post op check- attempted to give pt flagyl and neurontin. This RN had dispensed and had in medication cup. pt looked at this RN and said I am not taking this and you can't make me. This RN educated patient on why it is important to take prescribed medications, especially the antibiotic. Notified pt that doctor ordered for her to take. Pt again looked at this RN and said, I said I'm not taking these. Pt then closed eyes.
--- NOTE | 2019-07-25 19:44 | NURSING ---
pt unable to urinated post op- this RN bladder scanned pt for [address] novoa notified. new order for martinez to be placed. This RN entered room to notify pt and she said, no i do not want one and you cannot. This RN educated pt on importance, however, pt refused and stated that she wanted up to the [facility] and needed a 2nd person to be present and this RN had to call someone. This RN notified pt that we have had no issues t/o day today with this RN and pt- pt agreeable and up to BSC. Pt sat for ~15mins and unable to urinate. pt states this always happens after surgery. Pt educated more on importance of placing a martinez and was agreeable. Martinez placed via sterile technique for 950cc of clear straw urine. Pt tolerated well.
[2019-07-26] VITALS (8 sets, daily range): BP systolic 91–120; BP diastolic 40–54; PULSE 89–110; RESP 16–18; TEMP 36.5–37.3; O2SAT 93–96
[2019-07-26] MEDS: oxyCODONE 5 MG Tablet PO ×4 (02:11→23:12)
[2019-07-26 02:21] LABS: Bedside Glucose 76 mg/dL (70-110)
[2019-07-26 02:21] LABS: Bedside Glucose 68 mg/dL (70-110)
[2019-07-26] MEDS: 0.9% Normal Saline 1,000 ML 100 ML IV ×2 (03:33→16:36)
--- NOTE | 2019-07-26 05:54 | NURSING ---
pt has removed the pulse ox sticker several times tonight and is refusing to have it reapplied.
[2019-07-26] MEDS: Levothyroxine 75 MCG Tablet PO (06:17)
[2019-07-26 06:50] LABS: Bedside Glucose 92 mg/dL (70-110)
--- NOTE | 2019-07-26 07:48 | CPS ---
explained to patient why incentive spirometer is necessary. She does not want to do it.
[2019-07-26 08:06] LABS: Hemoglobin 9.7 g/dL (12.0-15.0); Mean Corp Hgb Conc 30.3 g/dL (32-36); Mean Corpuscular Hgb 31.5 pg (27.0-32.0); Mean Corpuscular Volume 103.9 fL (81-99); Mean Platelet Vol. 8.7 fl (6.2-12.0); Platelet Count 320 K/mm3 (150-450); RBC Distribution Width CV 14.9 % (11.6-14.6); RBC Distribution Width SD 57.1 fl (35.1-43.9); Red Blood Count 3.08 M/mm3 (4.2-5.4); White Blood Count 10.9 K/mm3 (4.4-11.0)
[2019-07-26 08:32] LABS: ALB/GLOB Ratio 0.5 RATIO (0.9-2.4); AST(SGOT) 82 U/L (15-37); Alanine Aminotransfer ALT/SGPT 53 U/L (13-56); Albumin, Serum 1.9 g/dL (3.2-5.0); Alkaline Phosphatase 265 U/L (45-117); Anion Gap 9 (5-15); BUN 12 mg/dL (7-18); BUN/Creat Ratio 6.7 RATIO (10-20); Calcium,Total 8.5 mg/dL (8.5-10.1); Chloride 113 mmol/L (98-107); EST Glomerular Filtration Rate 30 mL/min (>60); Est Glom Filt Rate - Afr Amer 36 mL/min (>60); Estimated Creatinine Clearance 26.46 ml/min; Globulin 3.8 g/dL (2.2-4.2); Glucose 86 mg/dL (74-106); Potassium 3.7 mmol/L (3.5-5.1); Prealbumin 14.4 mg/dL (20.0-40.0); Protein, Total 5.7 g/dL (6.4-8.2); Sodium Level 145 mmol/L (136-145)
[2019-07-26 08:49] LABS: Erythrocyte Sedimentation Rate 73 mm/hr (0-30)
[2019-07-26] MEDS: Gabapentin 600 MG Tablet PO ×4 (09:03→22:32)
[2019-07-26] MEDS: Sodium Bicarbonate 650 MG Tablet 1300 MG PO ×2 (09:03→22:34)
[2019-07-26] MEDS: Metoprolol Tartrate 25 MG Tablet PO ×2 (09:03→22:33)
[2019-07-26] MEDS: busPIRone 5 MG Tablet 10 MG PO ×2 (09:04→22:32)
[2019-07-26] MEDS: OLANZapine 10 MG Tablet 20 MG PO (09:04)
[2019-07-26] MEDS: Heparin Injection (Vial) 5,000 UNIT/ML VIAL 5000 UNIT SC ×2 (09:04→22:36)
[2019-07-26] MEDS: Pantoprazole Sodium 40 MG Tablet PO (09:04)
[2019-07-26] MEDS: Venlafaxine XR 150 MG Capsule PO (09:04)
[2019-07-26] MEDS: Allopurinol 300 MG Tablet PO (09:04)
[2019-07-26] MEDS: Glucerna Shake 120 ML LIQUID PO ×3 (09:04→22:30)
[2019-07-26 12:11] LABS: Bedside Glucose 93 mg/dL (70-110)
[2019-07-26 16:45] LABS: Bedside Glucose 79 mg/dL (70-110)
--- NOTE | 2019-07-26 16:50 | PCM.PROGNOTE ---
Patient Problems: Active and Suspected Problems ILIANA (acute kidney injury) (Acute) Intractable low back pain (Acute) Subjective: Patient was seen and examined today, she does not complain of any shortness of breath, chest discomfort, or fevers or chills. Patient told this examiner that she has a psychiatric history-she states she follows up with a psychiatrist in [facility] on a regular basis and has a diagnosis of schizoaffective disorder. Patient's white blood cell count today is normal, her creatinine is improved. - Physical Exam Vitals/I&O's: Vital Signs Temp Pulse Resp BP Pulse Ox 97.7 F L 89 16 95/40 L 96 07/26/19 13:52 07/26/19 13:52 07/26/19 13:52 07/26/19 13:52 07/26/19 13:52 Oxygen Flow Rate (L/min) 3 Oxygen Delivery Method Nasal Cannula Weight: 93.7 kg Body Mass Index (BMI) 36.6 Intake and Output for Last 24 Hours 07/24/19 07/25/19 07/26/19 23:59 23:59 23:59 Intake Total 1050 / 1050 1000 / 1000 2640.00 / 2640.00 Output Total 1900 / 1900 900 / 900 Balance 1050 / 1050 -900 / -900 1740.00 / 1740.00 General: Alert, Oriented x3, Cooperative, No apparent distress, Well developed HEENT: Atraumatic, PERRLA, EOMI, Normocephalic Oral: Moist Mucosa Neck: Supple, Trachea Midline, Thyroid Normal Size and Texture Lungs: Clear to auscultation, Normal air movement, No rhonchi, No wheeze, No rales Cardiovascular: Regular rate, Regular Rhythm, Normal S1, Normal S2, No murmurs Abdomen: Bowel Sounds Present, Soft, Non Tender, Non-Distended, Obese Extremities: No clubbing, No cyanosis, No edema, Capillary Refill Less than 3 Seconds Musculoskeletal: No Tenderness to Palpation of Joints or Extremities Neurological: Cranial nerves II-XII grossly intact, Neuro grossly intact, Sensory exam intact to light touch and pain Psych/Mental Status: Normal Affect, Appropriate, Alert and oriented to time, place, person, mood and affect Microbiology Past 72 Hours 07/25/19 14:02 Bone - Other Gram Stain - Final 07/25/19 14:02 Bone - Other Wound Culture - Preliminary No growth-Final to follow 07/25/19 14:02 Tissue - Other Gram Stain - Final 07/25/19 14:02 Tissue - Other Wound Culture - Preliminary No growth-Final to follow Laboratory Results 07/26/19 01:53: POC Glucose 68 L 07/26/19 02:13: POC Glucose 76 07/26/19 06:29: POC Glucose 92 07/26/19 06:55: WBC 10.9, RBC 3.08 L, Hgb 9.7 L, Hct 32.0 L, MCV 103.9 H, MCH 31.5, MCHC 30.3 L, RDW Std Deviation 57.1 H, RDW Coeff of Harper 14.9 H, Plt Count 320, MPV 8.7, ESR 73 H 07/26/19 06:55: Sodium 145, Potassium 3.7, Chloride 113 H, Carbon Dioxide 23.0, Anion Gap 9, BUN 12, Creatinine 1.80 H, Estim Creat Clear Calc 26.46, Est GFR (MDRD) Af Amer 36 L, Est GFR (MDRD) Non-Af 30 L, BUN/Creatinine Ratio 6.7 L, Glucose 86, Calcium 8.5, Total Bilirubin 0.40, AST 82 H, ALT 53, Alkaline Phosphatase 265 H, C-React Prot Ext Range 35.10 H, Total Protein 5.7 L, Albumin 1.9 L, Globulin 3.8, Albumin/Globulin Ratio 0.5 L, Prealbumin 14.4 L 07/26/19 12:05: POC Glucose 93 07/26/19 16:35: POC Glucose 79 Current Medications Acetaminophen (Tylenol) 650 mg PO Q6H PRN PRN PRN Reason: Pain Score 1-3/Temp > 100.7 F Al Hydroxide/Mg Hydroxide (Mylanta Ii) 30 ml PO Q6H PRN PRN PRN Reason: Gastric Burning Albuterol Sulfate (Ventolin Aerosols) 2.5 mg INHALATION Q2H PRN PRN PRN Reason: Shortness of Breath/Wheezing Allopurinol (Zyloprim) 300 mg PO DAILY [facility] Last Admin: 07/26/19 09:04 Dose: 300 mg Documented by: Atorvastatin Calcium (Lipitor) 80 mg PO QHS [facility] Last Admin: 07/26/19 00:07 Dose: Not Given Documented by: Benztropine Mesylate (Cogentin) 0.5 mg PO QHS [facility] Last Admin: 07/26/19 00:04 Dose: Not Given Documented by: Buspirone HCl (Buspar) 10 mg PO BID [facility] Last Admin: 07/26/19 09:04 Dose: 10 mg Documented by: Gabapentin (Neurontin) 600 mg PO 4X/DAY [facility] Last Admin: 07/26/19 15:05 Dose: 600 mg Documented by: Glucagon () 1 mg IM .X1 PRN PRN Reason: Hypoglycemia Heparin Sodium (Porcine) (Heparin Na) 5,000 unit SC Q12 [facility] Last Admin: 07/26/19 09:04 Dose: 5,000 unit Documented by: Sodium Chloride () 1,000 mls @ 100 mls/hr IV .Q10H [facility] Last Admin: 07/26/19 16:36 Dose: 100 mls/hr Documented by: Dextrose (Dextrose 10%-Water) 250 mls @ 999 mls/hr IV .Q16M PRN; Protocol PRN Reason: HYPOGLYCEMIA Sodium Chloride () 250 mls @ 15 mls/hr IV .[id number] PRN PRN Reason: Saline Flush Sodium Chloride () 250 mls @ 15 mls/hr IV .[id number] PRN PRN Reason: Additional IVPB Infusion Meropenem 1 gm/ Sodium (Chloride) 120 mls @ 33 mls/hr IV BID [facility] Last Infusion: 07/26/19 15:35 Dose: Infused Documented by: Insulin Human Lispro (Humalog Kwikpen (Bkc)) 0 unit SC ACHS [facility]; Protocol Last Admin: 07/26/19 16:42 Dose: Not Given Documented by: Levothyroxine Sodium (Synthroid) 75 mcg PO DAILY@0600 [facility] Last Admin: 07/26/19 06:17 Dose: 75 mcg Documented by: Magnesium Hydroxide (Milk Of Magnesia) 30 ml PO DAILY PRN PRN PRN Reason: Constipation Metoprolol Tartrate (Lopressor (Beta Armani)) 25 mg PO BID [facility] Last Admin: 07/26/19 09:03 Dose: 25 mg Documented by: Morphine Sulfate () 2 mg IV Q3H PRN PRN PRN Reason: Pain Score 6-10/10 Nicotine (Nicoderm Cq (Pbkc)) 7 mg TRANSDERM. DAILY [facility] Last Admin: 07/26/19 16:41 Dose: 7 mg Documented by: Nutritional Formula (Lactose Free) (Glucerna Shake) 120 ml PO 4X/DAY [facility] Last Admin: 07/26/19 15:05 Dose: 120 ml Documented by: Olanzapine (Zyprexa) 20 mg PO DAILY [facility] Last Admin: 07/26/19 09:04 Dose: 20 mg Documented by: Ondansetron HCl (Zofran) 4 mg IV Q8H PRN PRN PRN Reason: NAUSEA/VOMITING Oxycodone HCl (Oxyir) 5 mg PO Q4H PRN PRN PRN Reason: Pain Score 4-5/10 Last Admin: 07/26/19 16:39 Dose: 5 mg Documented by: Pantoprazole Sodium (Protonix) 40 mg PO DAILY [facility] Last Admin: 07/26/19 09:04 Dose: 40 mg Documented by: Potassium Chloride (K-Dur) 10 meq PO BID [facility] Last Admin: 07/26/19 09:03 Dose: 10 meq Documented by: Pramipexole Dihydrochloride (Mirapex) 0.125 mg PO QHS [facility] Last Admin: 07/26/19 00:07 Dose: Not Given Documented by: Sodium Bicarbonate (Sodium Bicarbonate) 1,300 mg PO BID [facility] Last Admin: 07/26/19 09:03 Dose: 1,300 mg Documented by: Sodium Chloride () 10 - 40 ml IV UD PRN PRN Reason: SALINE FLUSH Last Admin: 07/25/19 09:43 Dose: 10 ml Documented by: Sodium Hypochlorite (Dakins Solution 0.25% (1/2 Strength)) 1 applic TOPICAL BID [facility]; Protocol Last Admin: 07/26/19 08:55 Dose: Not Given Documented by: Tizanidine HCl (Zanaflex) 2 mg PO Q8H PRN PRN PRN Reason: back strain, spasms, severe Trazodone HCl (Desyrel) 25 mg PO QHS [facility] Last Admin: 07/26/19 00:06 Dose: Not Given Documented by: Venlafaxine HCl (Effexor Xr) 150 mg PO DAILY [facility] Last Admin: 07/26/19 09:04 Dose: 150 mg Documented by: Medical Necessity - Tobacco Use Smoking Status: Current every day smoker Tobacco Use: Vapor Assessment/Plan All Active Problems Pressure ulcer, buttock, right, unstageable (Acute) Decreased renal function (Acute) ILIANA (acute kidney injury) (Acute) Intractable low back pain (Acute) #1 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 coli-status post debridement postop day 1-wound care per plastic surgery, patient had a wound VAC placed today #2 generalized debility #3 type 2 diabetes #4 essential hypertension #5 morbid obesity #6 chronic kidney disease stage III-continue IV fluids, creatinine is improved #7 Schizoaffective disorder-patient still remains delusional at times but responds appropriately to questioning for me today. Code Visit Inpatient E&M: 08809 Subs Hosp L2
--- NOTE | 2019-07-26 21:41 | PN.SURG_ITS ---
Patient Problems: Active and Suspected Problems ILIANA (acute kidney injury) (Acute) Intractable low back pain (Acute) Subjective: Postop #1 Patient is resting comfortably. VAC applied today. - Physical Exam Vitals/I&O's: Vital Signs Temp Pulse Resp BP Pulse Ox 99.1 F 93 16 118/40 L 96 07/26/19 20:00 07/26/19 20:00 07/26/19 20:00 07/26/19 20:00 07/26/19 20:00 Oxygen Flow Rate (L/min) 2 Oxygen Delivery Method Nasal Cannula Weight: 206 lb 9.17 oz Body Mass Index (BMI) 36.6 Intake and Output for Last 24 Hours 07/24/19 07/25/19 07/26/19 23:59 23:59 23:59 Intake Total 1050 / 1050 1000 / 1000 2640.00 / 2640.00 Output Total 1900 / 1900 1200 / 1200 Balance 1050 / 1050 -900 / -900 1440.00 / 1440.00 General: Confused HEENT: PERRLA, EOMI Oral: Moist Mucosa Neck: Supple Abdomen: Soft, Non-Distended Skin: Ulcer/ Wound - right buttock and sacral pressure sore wound is stable. No active bleeding seen. VAC applied today. Neurological: Cranial nerves II-XII grossly intact Psych/Mental Status: Flat Affect Microbiology Past 72 Hours 07/25/19 14:02 Bone - Other Gram Stain - Final 07/25/19 14:02 Bone - Other Wound Culture - Preliminary No growth-Final to follow 07/25/19 14:02 Tissue - Other Gram Stain - Final 07/25/19 14:02 Tissue - Other Wound Culture - Preliminary No growth-Final to follow Pathology is pending. Laboratory Results 07/26/19 01:53: POC Glucose 68 L 07/26/19 02:13: POC Glucose 76 07/26/19 06:29: POC Glucose 92 07/26/19 06:55: WBC 10.9, RBC 3.08 L, Hgb 9.7 L, Hct 32.0 L, MCV 103.9 H, MCH 31.5, MCHC 30.3 L, RDW Std Deviation 57.1 H, RDW Coeff of Harper 14.9 H, Plt Count 320, MPV 8.7, ESR 73 H 07/26/19 06:55: Sodium 145, Potassium 3.7, Chloride 113 H, Carbon Dioxide 23.0, Anion Gap 9, BUN 12, Creatinine 1.80 H, Estim Creat Clear Calc 26.46, Est GFR (MDRD) Af Amer 36 L, Est GFR (MDRD) Non-Af 30 L, BUN/Creatinine Ratio 6.7 L, Glucose 86, Calcium 8.5, Total Bilirubin 0.40, AST 82 H, ALT 53, Alkaline Phosphatase 265 H, C-React Prot Ext Range 35.10 H, Total Protein 5.7 L, Albumin 1.9 L, Globulin 3.8, Albumin/Globulin Ratio 0.5 L, Prealbumin 14.4 L 07/26/19 12:05: POC Glucose 93 07/26/19 16:35: POC Glucose 79 Current Medications Acetaminophen (Tylenol) 650 mg PO Q6H PRN PRN PRN Reason: Pain Score 1-3/Temp > 100.7 F Al Hydroxide/Mg Hydroxide (Mylanta Ii) 30 ml PO Q6H PRN PRN PRN Reason: Gastric Burning Albuterol Sulfate (Ventolin Aerosols) 2.5 mg INHALATION Q2H PRN PRN PRN Reason: Shortness of Breath/Wheezing Allopurinol (Zyloprim) 300 mg PO DAILY [facility] Last Admin: 07/26/19 09:04 Dose: 300 mg Documented by: Atorvastatin Calcium (Lipitor) 80 mg PO QHS [facility] Last Admin: 07/26/19 00:07 Dose: Not Given Documented by: Benztropine Mesylate (Cogentin) 0.5 mg PO QHS [facility] Last Admin: 07/26/19 00:04 Dose: Not Given Documented by: Buspirone HCl (Buspar) 10 mg PO BID [facility] Last Admin: 07/26/19 09:04 Dose: 10 mg Documented by: Gabapentin (Neurontin) 600 mg PO 4X/DAY [facility] Last Admin: 07/26/19 17:27 Dose: 600 mg Documented by: Glucagon () 1 mg IM .X1 PRN PRN Reason: Hypoglycemia Heparin Sodium (Porcine) (Heparin Na) 5,000 unit SC Q12 [facility] Last Admin: 07/26/19 09:04 Dose: 5,000 unit Documented by: Sodium Chloride () 1,000 mls @ 100 mls/hr IV .Q10H [facility] Last Admin: 07/26/19 16:36 Dose: 100 mls/hr Documented by: Dextrose (Dextrose 10%-Water) 250 mls @ 999 mls/hr IV .Q16M PRN; Protocol PRN Reason: HYPOGLYCEMIA Sodium Chloride () 250 mls @ 15 mls/hr IV .[id number] PRN PRN Reason: Saline Flush Sodium Chloride () 250 mls @ 15 mls/hr IV .[id number] PRN PRN Reason: Additional IVPB Infusion Meropenem 1 gm/ Sodium (Chloride) 120 mls @ 33 mls/hr IV BID [facility] Last Infusion: 07/26/19 15:35 Dose: Infused Documented by: Insulin Human Lispro (Humalog Kwikpen (Bkc)) 0 unit SC ACHS [facility]; Protocol Last Admin: 07/26/19 16:42 Dose: Not Given Documented by: Levothyroxine Sodium (Synthroid) 75 mcg PO DAILY@0600 [facility] Last Admin: 07/26/19 06:17 Dose: 75 mcg Documented by: Magnesium Hydroxide (Milk Of Magnesia) 30 ml PO DAILY PRN PRN PRN Reason: Constipation Metoprolol Tartrate (Lopressor (Beta Armani)) 25 mg PO BID [facility] Last Admin: 07/26/19 09:03 Dose: 25 mg Documented by: Morphine Sulfate () 2 mg IV Q3H PRN PRN PRN Reason: Pain Score 6-10/10 Nicotine (Nicoderm Cq (Pbkc)) 7 mg TRANSDERM. DAILY [facility] Last Admin: 07/26/19 16:41 Dose: 7 mg Documented by: Nutritional Formula (Lactose Free) (Glucerna Shake) 120 ml PO 4X/DAY [facility] Last Admin: 07/26/19 17:27 Dose: Not Given Documented by: Olanzapine (Zyprexa) 20 mg PO DAILY [facility] Last Admin: 07/26/19 09:04 Dose: 20 mg Documented by: Ondansetron HCl (Zofran) 4 mg IV Q8H PRN PRN PRN Reason: NAUSEA/VOMITING Oxycodone HCl (Oxyir) 5 mg PO Q4H PRN PRN PRN Reason: Pain Score 4-5/10 Last Admin: 07/26/19 16:39 Dose: 5 mg Documented by: Pantoprazole Sodium (Protonix) 40 mg PO DAILY [facility] Last Admin: 07/26/19 09:04 Dose: 40 mg Documented by: Potassium Chloride (K-Dur) 10 meq PO BID [facility] Last Admin: 07/26/19 09:03 Dose: 10 meq Documented by: Pramipexole Dihydrochloride (Mirapex) 0.125 mg PO QHS [facility] Last Admin: 07/26/19 00:07 Dose: Not Given Documented by: Sodium Bicarbonate (Sodium Bicarbonate) 1,300 mg PO BID [facility] Last Admin: 07/26/19 09:03 Dose: 1,300 mg Documented by: Sodium Chloride () 10 - 40 ml IV UD PRN PRN Reason: SALINE FLUSH Last Admin: 07/25/19 09:43 Dose: 10 ml Documented by: Sodium Hypochlorite (Dakins Solution 0.25% (1/2 Strength)) 1 applic TOPICAL BID [facility]; Protocol Last Admin: 07/26/19 08:55 Dose: Not Given Documented by: Tizanidine HCl (Zanaflex) 2 mg PO Q8H PRN PRN PRN Reason: back strain, spasms, severe Trazodone HCl (Desyrel) 25 mg PO QHS [facility] Last Admin: 07/26/19 00:06 Dose: Not Given Documented by: Venlafaxine HCl (Effexor Xr) 150 mg PO DAILY [facility] Last Admin: 07/26/19 09:04 Dose: 150 mg Documented by: Medical Necessity - Tobacco Use Smoking Status: Current every day smoker Tobacco Use: Vapor Assessment/Plan All Active Problems Pressure ulcer, buttock, right, unstageable (Acute) Decreased renal function (Acute) ILIANA (acute kidney injury) (Acute) Intractable low back pain (Acute) 1. 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 2. Diabetes mellitus. 3. Smoker. Wound is stable. No active bleeding seen. VAC applied today. Operative culture is pending. With the degree of necrotic muscle that was debrided, there is concern for anaerobic involvement. So Ceftriaxone was changed to Meropenem. Preop cultures showed Serratia marcescens and E. coli and Anaerobic cocci. Pathology is pending. Anticipate increased metabolic demands from the infection and from the pressure sore. Prealbumin was 14.4. Encourage nutritional supplementation with protein to help the healing process. With the severity of the infection and the large size of the wound and the probable need for IV antibiotics, patient would be best served at an ECF. Evaluation in process. Encouraged patient to stop smoking as it may have deleterious effects on wound healing.
[2019-07-26] MEDS: Benztropine 2 MG Tablet 0.5 MG PO (22:31)
[2019-07-26] MEDS: traZODone 50 MG Tablet 25 MG PO (22:31)
[2019-07-26] MEDS: Atorvastatin Calcium 80 MG Tablet PO (22:32)
[2019-07-26] MEDS: Pramipexole Di-HCl 0.125 MG Tablet PO (22:32)
[2019-07-26 22:50] LABS: Bedside Glucose 68 mg/dL (70-110)
[2019-07-26 23:16] LABS: Bedside Glucose 111 mg/dL (70-110)
[2019-07-27] VITALS (8 sets, daily range): BP systolic 100–133; BP diastolic 50–74; PULSE 85–99; RESP 18; TEMP 36.1–37.1; O2SAT 94–97
[2019-07-27] MEDS: 0.9% Normal Saline 1,000 ML 100 ML IV ×3 (03:35→22:42)
--- NOTE | 2019-07-27 04:36 | NURSING ---
Patient pulled out her iv. Charge nurse tried x3 and [employer] supervisor tried once, unable to get access. Will seek new order for iv access.
[2019-07-27 06:05] LABS: Bedside Glucose 82 mg/dL (70-110)
[2019-07-27] MEDS: Levothyroxine 75 MCG Tablet PO (06:05)
[2019-07-27] MEDS: Glucerna Shake 120 ML LIQUID PO ×4 (11:49→22:44)
[2019-07-27] MEDS: busPIRone 5 MG Tablet 10 MG PO ×2 (11:49→22:47)
[2019-07-27] MEDS: OLANZapine 10 MG Tablet 20 MG PO (11:50)
[2019-07-27] MEDS: Venlafaxine XR 150 MG Capsule PO (11:51)
[2019-07-27] MEDS: Pantoprazole Sodium 40 MG Tablet PO (11:51)
[2019-07-27] MEDS: Sodium Bicarbonate 650 MG Tablet 1300 MG PO ×2 (11:51→22:47)
[2019-07-27] MEDS: Metoprolol Tartrate 25 MG Tablet PO ×2 (11:52→22:48)
[2019-07-27] MEDS: Allopurinol 300 MG Tablet PO (11:52)
[2019-07-27] MEDS: Heparin Injection (Vial) 5,000 UNIT/ML VIAL 5000 UNIT SC ×2 (11:54→22:47)
[2019-07-27] MEDS: Gabapentin 600 MG Tablet PO ×3 (11:55→22:48)
[2019-07-27] MEDS: oxyCODONE 5 MG Tablet PO (13:10)
[2019-07-27] MEDS: hydrOXYzine PAM 25 MG Capsule 50 MG PO (13:10)
[2019-07-27] MEDS: 0.9% Saline Lock 10 ML Syringe IV (13:21)
[2019-07-27 14:16] LABS: Bedside Glucose 111 mg/dL (70-110)
--- NOTE | 2019-07-27 17:30 | PCM.PROGNOTE ---
Patient Problems: Active and Suspected Problems ILIANA (acute kidney injury) (Acute) Intractable low back pain (Acute) Subjective: Patient seen and examined today, she remains delusional at times but answers some questions appropriately. Patient requested an anxiety medication today, I am reluctant to make major adjustments on her medications but I added Vistaril as needed anxiety to her medications. Patient remains afebrile today. - Physical Exam Vitals/I&O's: Vital Signs Temp Pulse Resp BP Pulse Ox 97.0 F L 96 18 133/74 H 97 07/27/19 12:35 07/27/19 12:35 07/27/19 12:35 07/27/19 12:35 07/27/19 12:35 Oxygen Flow Rate (L/min) 2 Oxygen Delivery Method Nasal Cannula Weight: 93.7 kg Body Mass Index (BMI) 36.6 Intake and Output for Last 24 Hours 07/25/19 07/26/19 07/27/19 23:59 23:59 23:59 Intake Total 1000 / 1000 2640.00 / 2940.00 1840.00 / 1840.00 Output Total 1900 / 1900 1200 / 1500 1300 / 1300 Balance -900 / -900 1440.00 / 1440.00 540.00 / 540.00 General: Alert, Oriented x3, Cooperative, No apparent distress, Well developed HEENT: Atraumatic, PERRLA, EOMI, Normocephalic Oral: Moist Mucosa Neck: Supple, Trachea Midline, Thyroid Normal Size and Texture Lungs: Clear to auscultation, Normal air movement, No rhonchi, No wheeze Cardiovascular: Regular rate, Regular Rhythm, Normal S1, Normal S2, No murmurs, PMI Normal, No rub noted Abdomen: Bowel Sounds Present, Soft, Non Tender, Non-Distended, Obese Extremities: No clubbing, No cyanosis, No edema, Capillary Refill Less than 3 Seconds Musculoskeletal: No Tenderness to Palpation of Joints or Extremities Neurological: Cranial nerves II-XII grossly intact, Neuro grossly intact, Sensory exam intact to light touch and pain Psych/Mental Status: Normal Affect, Appropriate Microbiology Past 72 Hours 07/24/19 17:42 Blood Culture (Wb) - Arm Left Blood Culture - Preliminary No growth in 48 hours. 07/25/19 14:02 Tissue - Other Gram Stain - Final 07/25/19 14:02 Tissue - Other Wound Culture - Preliminary Gram negative arik 07/25/19 14:02 Bone - Other Gram Stain - Final 07/25/19 14:02 Bone - Other Wound Culture - Preliminary No growth-Final to follow Laboratory Results 07/26/19 22:38: POC Glucose 68 L 07/26/19 23:08: POC Glucose 111 H 07/27/19 06:03: POC Glucose 82 07/27/19 13:19: POC Glucose 111 H Current Medications Acetaminophen (Tylenol) 650 mg PO Q6H PRN PRN PRN Reason: Pain Score 1-3/Temp > 100.7 F Al Hydroxide/Mg Hydroxide (Mylanta Ii) 30 ml PO Q6H PRN PRN PRN Reason: Gastric Burning Albuterol Sulfate (Ventolin Aerosols) 2.5 mg INHALATION Q2H PRN PRN PRN Reason: Shortness of Breath/Wheezing Allopurinol (Zyloprim) 300 mg PO DAILY [facility] Last Admin: 07/27/19 11:52 Dose: 300 mg Documented by: Atorvastatin Calcium (Lipitor) 80 mg PO QHS [facility] Last Admin: 07/26/19 22:32 Dose: 80 mg Documented by: Benztropine Mesylate (Cogentin) 0.5 mg PO QHS [facility] Last Admin: 07/26/19 22:31 Dose: 0.5 mg Documented by: Buspirone HCl (Buspar) 10 mg PO BID [facility] Last Admin: 07/27/19 11:49 Dose: 10 mg Documented by: Gabapentin (Neurontin) 600 mg PO 4X/DAY [facility] Last Admin: 07/27/19 13:20 Dose: Not Given Documented by: Glucagon () 1 mg IM .X1 PRN PRN Reason: Hypoglycemia Heparin Sodium (Porcine) (Heparin Na) 5,000 unit SC Q12 [facility] Last Admin: 07/27/19 11:54 Dose: 5,000 unit Documented by: Hydroxyzine Pamoate (Vistaril Pamoate Capsule) 50 mg PO 4X/DAY PRN PRN PRN Reason: ANXIETY Last Admin: 07/27/19 13:10 Dose: 50 mg Documented by: Sodium Chloride () 1,000 mls @ 100 mls/hr IV .Q10H [facility] Last Admin: 07/27/19 12:58 Dose: 100 mls/hr Documented by: Dextrose (Dextrose 10%-Water) 250 mls @ 999 mls/hr IV .Q16M PRN; Protocol PRN Reason: HYPOGLYCEMIA Sodium Chloride () 250 mls @ 15 mls/hr IV .[id number] PRN PRN Reason: Saline Flush Last Infusion: 07/27/19 13:09 Dose: 0 mls/hr Documented by: Sodium Chloride () 250 mls @ 15 mls/hr IV .[id number] PRN PRN Reason: Additional IVPB Infusion Meropenem 1 gm/ Sodium (Chloride) 120 mls @ 33 mls/hr IV BID [facility] Last Admin: 07/27/19 13:05 Dose: 33 mls/hr Documented by: Insulin Human Lispro (Humalog Kwikpen (Bkc)) 0 unit SC ACHS [facility]; Protocol Last Admin: 07/27/19 13:28 Dose: Not Given Documented by: Levothyroxine Sodium (Synthroid) 75 mcg PO DAILY@0600 [facility] Last Admin: 07/27/19 06:05 Dose: 75 mcg Documented by: Magnesium Hydroxide (Milk Of Magnesia) 30 ml PO DAILY PRN PRN PRN Reason: Constipation Metoprolol Tartrate (Lopressor (Beta Armani)) 25 mg PO BID [facility] Last Admin: 07/27/19 11:52 Dose: 25 mg Documented by: Morphine Sulfate () 2 mg IV Q3H PRN PRN PRN Reason: Pain Score 6-10/10 Nicotine (Nicoderm Cq (Pbkc)) 7 mg TRANSDERM. DAILY [facility] Last Admin: 07/27/19 14:05 Dose: 7 mg Documented by: Nutritional Formula (Lactose Free) (Glucerna Shake) 120 ml PO 4X/DAY [facility] Last Admin: 07/27/19 13:29 Dose: 120 ml Documented by: Olanzapine (Zyprexa) 20 mg PO DAILY [facility] Last Admin: 07/27/19 11:50 Dose: 20 mg Documented by: Ondansetron HCl (Zofran) 4 mg IV Q8H PRN PRN PRN Reason: NAUSEA/VOMITING Oxycodone HCl (Oxyir) 5 mg PO Q4H PRN PRN PRN Reason: Pain Score 4-5/10 Last Admin: 07/27/19 13:10 Dose: 5 mg Documented by: Pantoprazole Sodium (Protonix) 40 mg PO DAILY [facility] Last Admin: 07/27/19 11:51 Dose: 40 mg Documented by: Potassium Chloride (K-Dur) 10 meq PO BID [facility] Last Admin: 07/27/19 11:52 Dose: 10 meq Documented by: Pramipexole Dihydrochloride (Mirapex) 0.125 mg PO QHS [facility] Last Admin: 07/26/19 22:32 Dose: 0.125 mg Documented by: Sodium Bicarbonate (Sodium Bicarbonate) 1,300 mg PO BID [facility] Last Admin: 07/27/19 11:51 Dose: 1,300 mg Documented by: Sodium Chloride () 10 - 40 ml IV UD PRN PRN Reason: SALINE FLUSH Last Admin: 07/27/19 13:21 Dose: 20 ml Documented by: Sodium Hypochlorite (Dakins Solution 0.25% (1/2 Strength)) 1 applic TOPICAL BID [facility]; Protocol Last Admin: 07/27/19 11:50 Dose: Not Given Documented by: Tizanidine HCl (Zanaflex) 2 mg PO Q8H PRN PRN PRN Reason: back strain, spasms, severe Trazodone HCl (Desyrel) 25 mg PO QHS [facility] Last Admin: 07/26/19 22:31 Dose: 25 mg Documented by: Venlafaxine HCl (Effexor Xr) 150 mg PO DAILY [facility] Last Admin: 07/27/19 11:51 Dose: 150 mg Documented by: Medical Necessity - Tobacco Use Smoking Status: Current every day smoker Tobacco Use: Vapor Assessment/Plan All Active Problems Pressure ulcer, buttock, right, unstageable (Acute) Decreased renal function (Acute) ILIANA (acute kidney injury) (Acute) Intractable low back pain (Acute) #1 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 coli-status post debridement postop day 2-wound care per plastic surgery, wound VAC remains on the patient, she will need short-term placement in a [place] [facility] facility #2 generalized debility #3 type 2 diabetes #4 essential hypertension #5 morbid obesity #6 chronic kidney disease stage III-continue IV fluids, repeat labs tomorrow #7 Schizoaffective disorder-patient still remains delusional at times but responds appropriately to questioning for me today. Code Visit Inpatient E&M: 54210 Subs Hosp L2
[2019-07-27] MEDS: Pramipexole Di-HCl 0.125 MG Tablet PO (22:47)
[2019-07-27] MEDS: Benztropine 2 MG Tablet 0.5 MG PO (22:47)
[2019-07-27] MEDS: traZODone 50 MG Tablet 25 MG PO (22:47)
[2019-07-27] MEDS: Atorvastatin Calcium 80 MG Tablet PO (22:48)
[2019-07-27 23:11] LABS: Bedside Glucose 83 mg/dL (70-110)
[2019-07-28] VITALS (8 sets, daily range): BP systolic 102–137; BP diastolic 39–71; PULSE 93–118; RESP 16–20; TEMP 37.1–37.6; O2SAT 93–96
[2019-07-28] MEDS: oxyCODONE 5 MG Tablet PO ×4 (05:19→18:08)
[2019-07-28] MEDS: Levothyroxine 75 MCG Tablet PO (05:19)
[2019-07-28 06:25] LABS: Bedside Glucose 80 mg/dL (70-110)
[2019-07-28 06:56] LABS: Bedside Glucose 80 mg/dL (70-110)
[2019-07-28 07:12] LABS: Anion Gap 5 (5-15); BUN 4 mg/dL (7-18); BUN/Creat Ratio 3.4 RATIO (10-20); Calcium,Total 8.2 mg/dL (8.5-10.1); Chloride 116 mmol/L (98-107); Creatinine, Serum 1.18 mg/dL (0.55-1.02); EST Glomerular Filtration Rate 49 mL/min (>60); Est Glom Filt Rate - Afr Amer 59 mL/min (>60); Estimated Creatinine Clearance 40.37 ml/min; Glucose 78 mg/dL (74-106); Potassium 3.8 mmol/L (3.5-5.1); Sodium Level 146 mmol/L (136-145)
[2019-07-28] MEDS: 0.9% Normal Saline 1,000 ML 100 ML IV ×2 (09:25→19:32)
[2019-07-28] MEDS: Metoprolol Tartrate 25 MG Tablet PO ×2 (09:36→22:27)
[2019-07-28] MEDS: Venlafaxine XR 150 MG Capsule PO (09:36)
[2019-07-28] MEDS: Pantoprazole Sodium 40 MG Tablet PO (09:36)
[2019-07-28] MEDS: Allopurinol 300 MG Tablet PO (09:36)
[2019-07-28] MEDS: Sodium Bicarbonate 650 MG Tablet 1300 MG PO ×2 (09:36→22:27)
[2019-07-28] MEDS: Gabapentin 600 MG Tablet PO ×4 (09:37→22:27)
[2019-07-28] MEDS: Heparin Injection (Vial) 5,000 UNIT/ML VIAL 5000 UNIT SC ×2 (09:37→22:30)
[2019-07-28] MEDS: busPIRone 5 MG Tablet 10 MG PO ×2 (09:37→22:28)
[2019-07-28] MEDS: Glucerna Shake 120 ML LIQUID PO ×4 (09:43→22:29)
[2019-07-28] MEDS: OLANZapine 10 MG Tablet 20 MG PO (10:57)
[2019-07-28 11:46] LABS: Bedside Glucose 88 mg/dL (70-110)
--- NOTE | 2019-07-28 14:10 | PCM.PN.HOSP ---
Patient Problems: Active and Suspected Problems ILIANA (acute kidney injury) (Acute) Intractable low back pain (Acute) Reason for Visit: Follow-up on stage IV right buttocks pressure injury Subjective: Patient was seen and examined. Denied any new complaints. Wound VAC in situ. Objective: Physical exam: General: Alert, Oriented x3, Cooperative, No apparent distress, Well developed HEENT: Atraumatic, PERRLA, EOMI, Normocephalic Oral: Moist Mucosa Neck: Supple, Trachea Midline, Thyroid Normal Size and Texture Lungs: Clear to auscultation, Normal air movement, No rhonchi, No wheeze Cardiovascular: Regular rate, Regular Rhythm, Normal S1, Normal S2, No murmurs, PMI Normal, No rub noted Abdomen: Bowel Sounds Present, Soft, Non Tender, Non-Distended, Obese, wound vac on buttocks Extremities: No clubbing, No cyanosis, No edema, Capillary Refill Less than 3 Seconds Musculoskeletal: No Tenderness to Palpation of Joints or Extremities Neurological: Cranial nerves II-XII grossly intact, Neuro grossly intact, Sensory exam intact to light touch and pain Psych/Mental Status: Normal Affect, Appropriate Vitals/I&O's: Vital Signs Temp Pulse Resp BP Pulse Ox 99.2 F H 95 18 118/55 L 94 07/28/19 13:50 07/28/19 13:50 07/28/19 13:50 07/28/19 13:50 07/28/19 13:50 Oxygen Flow Rate (L/min) 2 Oxygen Delivery Method Room Air Weight: 93.7 kg Body Mass Index (BMI) 36.6 Intake and Output for Last 24 Hours 07/26/19 07/27/19 07/28/19 23:59 23:59 23:59 Intake Total 2640.00 / 2940.00 3133.33 / 3333.33 2432.58 / 2432.58 Output Total 1200 / 1500 1600 / 1850 800 / 800 Balance 1440.00 / 1440.00 1533.33 / 1483.33 1632.58 / 1632.58 Microbiology Past 72 Hours 07/25/19 14:02 Bone - Other Gram Stain - Final 07/25/19 14:02 Bone - Other Wound Culture - Final No growth aerobically. 07/25/19 14:02 Bone - Other Anaerobic Culture - Preliminary No growth in 48 hours. 07/25/19 14:02 Tissue - Other Gram Stain - Final 07/25/19 14:02 Tissue - Other Wound Culture - Preliminary Gram negative arik 07/25/19 14:02 Tissue - Other Anaerobic Culture - Preliminary No growth in 48 hours. 07/24/19 17:42 Blood Culture (Wb) - Arm Left Blood Culture - Preliminary No growth in 48 hours. Laboratory Results 07/27/19 13:19: POC Glucose 111 H 07/27/19 19:09: POC Glucose 80 07/27/19 22:41: POC Glucose 83 07/28/19 06:25: Sodium 146 H, Potassium 3.8, Chloride 116 H, Carbon Dioxide 25.0, Anion Gap 5, BUN 4 L, Creatinine 1.18 H, Estim Creat Clear Calc 40.37, Est GFR (MDRD) Af Amer 59 L, Est GFR (MDRD) Non-Af 49 L, BUN/Creatinine Ratio 3.4 L, Glucose 78, Calcium 8.2 L 07/28/19 06:46: POC Glucose 80 07/28/19 11:06: POC Glucose 88 Current Medications Acetaminophen (Tylenol) 650 mg PO Q6H PRN PRN PRN Reason: Pain Score 1-3/Temp > 100.7 F Al Hydroxide/Mg Hydroxide (Mylanta Ii) 30 ml PO Q6H PRN PRN PRN Reason: Gastric Burning Albuterol Sulfate (Ventolin Aerosols) 2.5 mg INHALATION Q2H PRN PRN PRN Reason: Shortness of Breath/Wheezing Allopurinol (Zyloprim) 300 mg PO DAILY [facility] Last Admin: 07/28/19 09:36 Dose: 300 mg Documented by: Atorvastatin Calcium (Lipitor) 80 mg PO QHS [facility] Last Admin: 07/27/19 22:48 Dose: 80 mg Documented by: Benztropine Mesylate (Cogentin) 0.5 mg PO QHS [facility] Last Admin: 07/27/19 22:47 Dose: 0.5 mg Documented by: Buspirone HCl (Buspar) 10 mg PO BID [facility] Last Admin: 07/28/19 09:37 Dose: 10 mg Documented by: Gabapentin (Neurontin) 600 mg PO 4X/DAY [facility] Last Admin: 07/28/19 13:52 Dose: 600 mg Documented by: Glucagon () 1 mg IM .X1 PRN PRN Reason: Hypoglycemia Heparin Sodium (Porcine) (Heparin Na) 5,000 unit SC Q12 [facility] Last Admin: 07/28/19 09:37 Dose: 5,000 unit Documented by: Hydroxyzine Pamoate (Vistaril Pamoate Capsule) 50 mg PO 4X/DAY PRN PRN PRN Reason: ANXIETY Last Admin: 07/27/19 13:10 Dose: 50 mg Documented by: Sodium Chloride () 1,000 mls @ 100 mls/hr IV .Q10H [facility] Last Infusion: 07/28/19 13:39 Dose: 100 mls/hr Documented by: Dextrose (Dextrose 10%-Water) 250 mls @ 999 mls/hr IV .Q16M PRN; Protocol PRN Reason: HYPOGLYCEMIA Sodium Chloride () 250 mls @ 15 mls/hr IV .[id number] PRN PRN Reason: Saline Flush Last Infusion: 07/28/19 13:39 Dose: 0 mls/hr Documented by: Sodium Chloride () 250 mls @ 15 mls/hr IV .[id number] PRN PRN Reason: Additional IVPB Infusion Meropenem 1 gm/ Sodium (Chloride) 120 mls @ 33 mls/hr IV BID [facility] Last Infusion: 07/28/19 13:15 Dose: Infused Documented by: Insulin Human Lispro (Humalog Fabiopen (Bkc)) 0 unit SC ACHS [facility]; Protocol Last Admin: 07/28/19 11:08 Dose: Not Given Documented by: Levothyroxine Sodium (Synthroid) 75 mcg PO DAILY@0600 [facility] Last Admin: 07/28/19 05:19 Dose: 75 mcg Documented by: Magnesium Hydroxide (Milk Of Magnesia) 30 ml PO DAILY PRN PRN PRN Reason: Constipation Metoprolol Tartrate (Lopressor (Beta Armani)) 25 mg PO BID [facility] Last Admin: 07/28/19 09:36 Dose: 25 mg Documented by: Morphine Sulfate () 2 mg IV Q3H PRN PRN PRN Reason: Pain Score 6-10/10 Nicotine (Nicoderm Cq (Pbkc)) 7 mg TRANSDERM. DAILY [facility] Last Admin: 07/28/19 10:57 Dose: 7 mg Documented by: Nutritional Formula (Lactose Free) (Glucerna Shake) 120 ml PO 4X/DAY [facility] Last Admin: 07/28/19 13:52 Dose: 120 ml Documented by: Olanzapine (Zyprexa) 20 mg PO DAILY [facility] Last Admin: 07/28/19 10:57 Dose: 20 mg Documented by: Ondansetron HCl (Zofran) 4 mg IV Q8H PRN PRN PRN Reason: NAUSEA/VOMITING Oxycodone HCl (Oxyir) 5 mg PO Q4H PRN PRN PRN Reason: Pain Score 4-5/10 Last Admin: 07/28/19 13:54 Dose: 5 mg Documented by: Pantoprazole Sodium (Protonix) 40 mg PO DAILY [facility] Last Admin: 07/28/19 09:36 Dose: 40 mg Documented by: Potassium Chloride (K-Dur) 10 meq PO BID [facility] Last Admin: 07/28/19 09:36 Dose: 10 meq Documented by: Pramipexole Dihydrochloride (Mirapex) 0.125 mg PO QHS [facility] Last Admin: 07/27/19 22:47 Dose: 0.125 mg Documented by: Sodium Bicarbonate (Sodium Bicarbonate) 1,300 mg PO BID [facility] Last Admin: 07/28/19 09:36 Dose: 1,300 mg Documented by: Sodium Chloride () 10 - 40 ml IV UD PRN PRN Reason: SALINE FLUSH Last Admin: 07/27/19 13:21 Dose: 20 ml Documented by: Tizanidine HCl (Zanaflex) 2 mg PO Q8H PRN PRN PRN Reason: back strain, spasms, severe Trazodone HCl (Desyrel) 25 mg PO QHS [facility] Last Admin: 07/27/19 22:47 Dose: 25 mg Documented by: Venlafaxine HCl (Effexor Xr) 150 mg PO DAILY [facility] Last Admin: 07/28/19 09:36 Dose: 150 mg Documented by: STROKE Vital Signs/Narrative: Vital Signs Temp Pulse Resp BP Pulse Ox 07/28/19 13:50 99.2 F H 95 18 118/55 L 94 Medical Necessity - Tobacco Use Smoking Status: Current every day smoker Tobacco Use: Vapor Assessment/Plan All Active Problems Pressure ulcer, buttock, right, unstageable (Acute) Decreased renal function (Acute) ILIANA (acute kidney injury) (Acute) Intractable low back pain (Acute) 1. POD #3, s/p Serratia marcescens/E. Coli stage IV pressure injury- right buttocks/sacral Status post wound debridement by plastic surgery, wound VAC in place Intraoperative wound cultures growing gram-negative rods Meropenem, will continue same pending final wound cultures 2. Acute kidney injury on CKD stage 3, likely prerenal, creatinine improved from 2.97-1.18 Continue on IVF, will continue to monitor, labs in am 3. Type 2 DM, sugars are controlled, continue to monitor with blood glucose checks and insulin sliding scale if needed 4. Hypertension, essential, continue metoprolol 5. Hypothyroidism, continue on Synthroid 6. Morbid obesity, BMI 36.6, lifestyle modification recommended 7. Schizoaffective disorder, remains stable, on multiple medications -benztropine, BuSpar, gabapentin, hydroxyzine, tizanidine, trazodone, Effexor 8. DVT prophylaxis with heparin subcu Code Visit Inpatient E&M: 56795 Subs Hosp L2
--- NOTE | 2019-07-28 14:12 | NURSING ---
wound photo: right buttock
--- NOTE | 2019-07-28 16:07 | CASEMGMT ---
OBEY LARA in to discuss discharge planning with patient and . Patient is confused. wishing for patient to go to SNF at discharge. Patient has previously been to [facility]. would like patient to discharge to [facility]. OBEY LARA updated FRANKY Holliday regarding request for [facility].
--- NOTE | 2019-07-28 16:15 | CASEMGMT ---
Social Work Note SW received referral for SNF placement and [facility]. [facility]. SW placed a call to Ronel at [facility] and left message regarding referral. Plan: SNF pending acceptance and pre-cert Kayleen Holliday MSW, HUMAN RESOURCES EXECUTIVE
[2019-07-28 17:15] LABS: Bedside Glucose 88 mg/dL (70-110)
[2019-07-28] MEDS: Atorvastatin Calcium 80 MG Tablet PO (22:27)
[2019-07-28] MEDS: traZODone 50 MG Tablet 25 MG PO (22:27)
[2019-07-28] MEDS: Pramipexole Di-HCl 0.125 MG Tablet PO (22:27)
[2019-07-28] MEDS: Benztropine 2 MG Tablet 0.5 MG PO (22:28)
[2019-07-29] VITALS (10 sets, daily range): BP systolic 92–137; BP diastolic 54–67; PULSE 104–111; RESP 16–20; TEMP 36.4–37.7; O2SAT 92–96
[2019-07-29] MEDS: oxyCODONE 5 MG Tablet PO ×2 (00:07→05:34)
[2019-07-29 01:11] LABS: Bedside Glucose 91 mg/dL (70-110)
[2019-07-29] MEDS: 0.9% Normal Saline 1,000 ML 100 ML IV (05:25)
[2019-07-29] MEDS: 0.9% Saline Lock 10 ML Syringe IV (05:28)
[2019-07-29] MEDS: Levothyroxine 75 MCG Tablet PO (05:34)
[2019-07-29 06:19] LABS: Absolute Neutrophil Count 6.8 X10^3/uL (2.0-7.7); Basophil# 0.09 X10^3/uL; Basophil% 0.7 % (0-1); Eosinophil# 0.65 X10^3/uL; Eosinophils% 4.8 % (0-5); Hematocrit 30.6 % (37-47); Hemoglobin 9.3 g/dL (12.0-15.0); Lymphocyte % 32.6 % (19-41); Mean Corp Hgb Conc 30.4 g/dL (32-36); Mean Corpuscular Hgb 31.2 pg (27.0-32.0); Mean Corpuscular Volume 102.7 fL (81-99); Mean Platelet Vol. 8.9 fl (6.2-12.0); Monocyte# 1.11 X10^3/uL; Monocyte% 8.2 % (0-10); NRBC Flagged by Analyzer 0.2 % (0-5); Neutrophil # 6.77 X10^3/uL (2.7-7.7); Neutrophil % 50.1 % (47-70); Platelet Count 330 K/mm3 (150-450); RBC Distribution Width CV 15.2 % (11.6-14.6); RBC Distribution Width SD 56.9 fl (35.1-43.9); Red Blood Count 2.98 M/mm3 (4.2-5.4); White Blood Count 13.5 K/mm3 (4.4-11.0)
[2019-07-29 06:38] LABS: ALB/GLOB Ratio 0.5 RATIO (0.9-2.4); AST(SGOT) 68 U/L (15-37); Alanine Aminotransfer ALT/SGPT 40 U/L (13-56); Albumin, Serum 1.7 g/dL (3.2-5.0); Alkaline Phosphatase 232 U/L (45-117); Anion Gap 4 (5-15); BUN 3 mg/dL (7-18); BUN/Creat Ratio 2.8 RATIO (10-20); Calcium,Total 7.8 mg/dL (8.5-10.1); Chloride 114 mmol/L (98-107); Creatinine, Serum 1.07 mg/dL (0.55-1.02); EST Glomerular Filtration Rate 55 mL/min (>60); Est Glom Filt Rate - Afr Amer 66 mL/min (>60); Estimated Creatinine Clearance 44.52 ml/min; Globulin 3.5 g/dL (2.2-4.2); Glucose 79 mg/dL (74-106); Potassium 3.6 mmol/L (3.5-5.1); Protein, Total 5.2 g/dL (6.4-8.2); Sodium Level 145 mmol/L (136-145)
[2019-07-29 07:01] LABS: Bedside Glucose 80 mg/dL (70-110)
--- NOTE | 2019-07-29 07:27 | PCM.PN.HOSP ---
Patient Problems: Active and Suspected Problems ILIANA (acute kidney injury) (Acute) Intractable low back pain (Acute) Reason for Visit: Follow-up on stage IV right buttocks pressure injury Subjective: Patient was seen and examined. Denies any new complains. Pain is 5/10, wound vac in situ. ROS is negative. Objective: Physical exam: General: Alert, Oriented x3, Cooperative, No apparent distress, Well developed HEENT: Atraumatic, PERRLA, EOMI, Normocephalic Oral: Moist Mucosa Neck: Supple, Trachea Midline, Thyroid Normal Size and Texture Lungs: Clear to auscultation, Normal air movement, No rhonchi, No wheeze Cardiovascular: Regular rate, Regular Rhythm, Normal S1, Normal S2, No murmurs, PMI Normal, No rub noted Abdomen: Bowel Sounds Present, Soft, Non Tender, Non-Distended, Obese, wound vac on buttocks Extremities: No clubbing, No cyanosis, No edema, Capillary Refill Less than 3 Seconds Musculoskeletal: No Tenderness to Palpation of Joints or Extremities Neurological: Cranial nerves II-XII grossly intact, Neuro grossly intact, Sensory exam intact to light touch and pain Psych/Mental Status: Normal Affect, Appropriate Vitals/I&O's: Vital Signs Temp Pulse Resp BP Pulse Ox 99.5 F H 104 H 20 H 128/56 H 94 07/29/19 02:05 07/29/19 02:05 07/29/19 02:05 07/29/19 02:05 07/29/19 02:05 Oxygen Flow Rate (L/min) 2.5 Oxygen Delivery Method Nasal Cannula Weight: 93.7 kg Body Mass Index (BMI) 36.6 Intake and Output for Last 24 Hours 07/27/19 07/28/19 07/29/19 23:59 23:59 23:59 Intake Total 3133.33 / 3333.33 3669.25 / 3669.25 1308.33 / 1308.33 Output Total 1600 / 1850 1300 / 1300 400 / 400 Balance 1533.33 / 1483.33 2369.25 / 2369.25 908.33 / 908.33 Microbiology Past 72 Hours 07/25/19 14:02 Bone - Other Gram Stain - Final 07/25/19 14:02 Bone - Other Wound Culture - Final No growth aerobically. 07/25/19 14:02 Bone - Other Anaerobic Culture - Preliminary No growth in 48 hours. 07/25/19 14:02 Tissue - Other Gram Stain - Final 07/25/19 14:02 Tissue - Other Wound Culture - Preliminary Gram negative arik 07/25/19 14:02 Tissue - Other Anaerobic Culture - Preliminary No growth in 48 hours. 07/24/19 17:42 Blood Culture (Wb) - Arm Left Blood Culture - Preliminary No growth in 48 hours. Laboratory Results 07/28/19 11:06: POC Glucose 88 07/28/19 17:04: POC Glucose 88 07/28/19 22:23: POC Glucose 91 07/29/19 05:35: WBC 13.5 H, RBC 2.98 L, Hgb 9.3 L, Hct 30.6 L, MCV 102.7 H, MCH 31.2, MCHC 30.4 L, RDW Std Deviation 56.9 H, RDW Coeff of Harper 15.2 H, Plt Count 330, MPV 8.9, Immature Gran % (Auto) 3.600 H, Neut % (Auto) 50.1, Lymph % (Auto) 32.6, Bailey % (Auto) 8.2, Eos % (Auto) 4.8, Baso % (Auto) 0.7, Absolute Neuts (auto) 6.8, Absolute Lymphs (auto) 4.40, Nucleated RBC % 0.2 07/29/19 05:35: Sodium 145, Potassium 3.6, Chloride 114 H, Carbon Dioxide 27.0, Anion Gap 4 L, BUN 3 L, Creatinine 1.07 H, Estim Creat Clear Calc 44.52, Est GFR (MDRD) Af Amer 66, Est GFR (MDRD) Non-Af 55 L, BUN/Creatinine Ratio 2.8 L, Glucose 79, Calcium 7.8 L, Total Bilirubin 0.40, AST 68 H, ALT 40, Alkaline Phosphatase 232 H, Total Protein 5.2 L, Albumin 1.7 L, Globulin 3.5, Albumin/Globulin Ratio 0.5 L 07/29/19 06:53: POC Glucose 80 Current Medications Acetaminophen (Tylenol) 650 mg PO Q6H PRN PRN PRN Reason: Pain Score 1-3/Temp > 100.7 F Al Hydroxide/Mg Hydroxide (Mylanta Ii) 30 ml PO Q6H PRN PRN PRN Reason: Gastric Burning Albuterol Sulfate (Ventolin Aerosols) 2.5 mg INHALATION Q2H PRN PRN PRN Reason: Shortness of Breath/Wheezing Allopurinol (Zyloprim) 300 mg PO DAILY [facility] Last Admin: 07/28/19 09:36 Dose: 300 mg Documented by: Atorvastatin Calcium (Lipitor) 80 mg PO QHS [facility] Last Admin: 07/28/19 22:27 Dose: 80 mg Documented by: Benztropine Mesylate (Cogentin) 0.5 mg PO QHS [facility] Last Admin: 07/28/19 22:28 Dose: 0.5 mg Documented by: Buspirone HCl (Buspar) 10 mg PO BID [facility] Last Admin: 07/28/19 22:28 Dose: 10 mg Documented by: Gabapentin (Neurontin) 600 mg PO 4X/DAY [facility] Last Admin: 07/28/19 22:27 Dose: 600 mg Documented by: Glucagon () 1 mg IM .X1 PRN PRN Reason: Hypoglycemia Heparin Sodium (Porcine) (Heparin Na) 5,000 unit SC Q12 [facility] Last Admin: 07/28/19 22:30 Dose: 5,000 unit Documented by: Hydroxyzine Pamoate (Vistaril Pamoate Capsule) 50 mg PO 4X/DAY PRN PRN PRN Reason: ANXIETY Last Admin: 07/27/19 13:10 Dose: 50 mg Documented by: Sodium Chloride () 1,000 mls @ 100 mls/hr IV .Q10H [facility] Last Admin: 07/29/19 05:25 Dose: 100 mls/hr Documented by: Dextrose (Dextrose 10%-Water) 250 mls @ 999 mls/hr IV .Q16M PRN; Protocol PRN Reason: HYPOGLYCEMIA Sodium Chloride () 250 mls @ 15 mls/hr IV .[id number] PRN PRN Reason: Saline Flush Last Infusion: 07/28/19 13:39 Dose: 0 mls/hr Documented by: Sodium Chloride () 250 mls @ 15 mls/hr IV .[id number] PRN PRN Reason: Additional IVPB Infusion Meropenem 1 gm/ Sodium (Chloride) 120 mls @ 33 mls/hr IV BID [facility] Last Infusion: 07/29/19 01:50 Dose: Infused Documented by: Insulin Human Lispro (Humalog Kwwilliampen (Bkc)) 0 unit SC ACHS [facility]; Protocol Last Admin: 07/29/19 07:13 Dose: Not Given Documented by: Levothyroxine Sodium (Synthroid) 75 mcg PO DAILY@0600 [facility] Last Admin: 07/29/19 05:34 Dose: 75 mcg Documented by: Magnesium Hydroxide (Milk Of Magnesia) 30 ml PO DAILY PRN PRN PRN Reason: Constipation Metoprolol Tartrate (Lopressor (Beta Armani)) 25 mg PO BID [facility] Last Admin: 07/28/19 22:27 Dose: 25 mg Documented by: Morphine Sulfate () 2 mg IV Q3H PRN PRN PRN Reason: Pain Score 6-10/10 Nicotine (Nicoderm Cq (Pbkc)) 7 mg TRANSDERM. DAILY [facility] Last Admin: 07/28/19 10:57 Dose: 7 mg Documented by: Nutritional Formula (Lactose Free) (Glucerna Shake) 120 ml PO 4X/DAY [facility] Last Admin: 07/28/19 22:29 Dose: 120 ml Documented by: Olanzapine (Zyprexa) 20 mg PO DAILY [facility] Last Admin: 07/28/19 10:57 Dose: 20 mg Documented by: Ondansetron HCl (Zofran) 4 mg IV Q8H PRN PRN PRN Reason: NAUSEA/VOMITING Oxycodone HCl (Oxyir) 5 mg PO Q4H PRN PRN PRN Reason: Pain Score 4-5/10 Last Admin: 07/29/19 05:34 Dose: 5 mg Documented by: Pantoprazole Sodium (Protonix) 40 mg PO DAILY [facility] Last Admin: 07/28/19 09:36 Dose: 40 mg Documented by: Potassium Chloride (K-Dur) 10 meq PO BID [facility] Last Admin: 07/28/19 22:30 Dose: 10 meq Documented by: Pramipexole Dihydrochloride (Mirapex) 0.125 mg PO QHS [facility] Last Admin: 07/28/19 22:27 Dose: 0.125 mg Documented by: Sodium Bicarbonate (Sodium Bicarbonate) 1,300 mg PO BID [facility] Last Admin: 07/28/19 22:27 Dose: 1,300 mg Documented by: Sodium Chloride () 10 - 40 ml IV UD PRN PRN Reason: SALINE FLUSH Last Admin: 07/29/19 05:28 Dose: 30 ml Documented by: Tizanidine HCl (Zanaflex) 2 mg PO Q8H PRN PRN PRN Reason: back strain, spasms, severe Trazodone HCl (Desyrel) 25 mg PO QHS [facility] Last Admin: 07/28/19 22:27 Dose: 25 mg Documented by: Venlafaxine HCl (Effexor Xr) 150 mg PO DAILY [facility] Last Admin: 07/28/19 09:36 Dose: 150 mg Documented by: Medical Necessity - Tobacco Use Smoking Status: Current every day smoker Tobacco Use: Vapor Assessment/Plan All Active Problems Pressure ulcer, buttock, right, unstageable (Acute) Decreased renal function (Acute) ILIANA (acute kidney injury) (Acute) Intractable low back pain (Acute) 1. POD #4, s/p Serratia marcescens/E. Coli stage IV pressure injury- right buttocks/sacral Status post wound debridement by plastic surgery, wound VAC in place Intraoperative wound cultures Serratia marcescens Will de-escalate antibiotics to cefdinir and aim for a 10 day total antibiotic course 2. Acute kidney injury on CKD stage 3, likely prerenal Creatinine improved from 2.97 to 1.07 Will discontinue IVF as patient is developing edema especially of the hands Repeat labs in am 3. Type 2 DM, sugars are controlled, continue to monitor with blood glucose checks and insulin sliding scale if needed 4. Hypertension, essential, continue metoprolol 5. Hypothyroidism, continue on Synthroid 6. Morbid obesity, BMI 36.6, lifestyle modification recommended 7. Schizoaffective disorder, remains stable, on multiple medications -benztropine, BuSpar, gabapentin, hydroxyzine, tizanidine, trazodone, Effexor 8. DVT prophylaxis with heparin subcu Code Visit Inpatient E&M: 87348 Subs Hosp L2
[2019-07-29] MEDS: Glucerna Shake 120 ML LIQUID PO ×3 (10:43→17:57)
[2019-07-29] MEDS: Sodium Bicarbonate 650 MG Tablet 1300 MG PO ×2 (10:56→23:26)
[2019-07-29] MEDS: busPIRone 5 MG Tablet 10 MG PO ×2 (10:57→23:27)
[2019-07-29] MEDS: Gabapentin 600 MG Tablet PO ×4 (10:57→23:27)
[2019-07-29] MEDS: Pantoprazole Sodium 40 MG Tablet PO (10:58)
[2019-07-29] MEDS: Allopurinol 300 MG Tablet PO (10:58)
[2019-07-29] MEDS: OLANZapine 10 MG Tablet 20 MG PO (10:59)
[2019-07-29] MEDS: Heparin Injection (Vial) 5,000 UNIT/ML VIAL 5000 UNIT SC ×2 (11:00→23:34)
[2019-07-29] MEDS: Venlafaxine XR 150 MG Capsule PO (11:00)
--- NOTE | 2019-07-29 11:16 | CASEMGMT ---
Addendum entered by Kayleen Holliday 07/29/19 15:53: FRANKY placed a call to pt's Ramon and left him a message updating him that pt has been accepted to [facility] pending pre-cert. FRANKY received call from Lary at [facility] stating she would like to know antibiotics pt will be on at discharge so she can determine costs of antibiotics. Lary states if pt is discharged on expensive antibiotics she will need to do a carve out and that can take a while to complete. FRANKY texted physician to determine what pt will be discharged on. FRANKY waiting for response. Addendum entered by Kayleen Holliday 07/29/19 14:52: FRANKY received call from Lary at [facility] stating she is able to accept pt and will submit for pre-cert. Plan: [facility] pending pre-cert Original Note: Social Work Note SW received message from Ronel at [facility] who states she doesn't have any beds available at this time. FRANKY placed a call to pt's Ramon and updated him that [facility] doesn't have any beds available at this time. Ramon states to try [facility] in [place] next. FRANKY faxed referral to [facility]. FRANKY placed a call to Layr in admissions and updated her on referral. Plan: SNF pending acceptance and pre-cert Kayleen Holliday METAL TREATER, ASSEMBLER FOR PULLER OVER HAND
[2019-07-29 11:25] LABS: Bedside Glucose 107 mg/dL (70-110)
[2019-07-29] MEDS: oxyCODONE 5 MG Tablet 10 MG PO (13:37)
--- NOTE | 2019-07-29 16:30 | NURSING ---
Paged Dr. Chris via [employer] to inform that pt is drowsy and recent set of Vitals. Report given to Zaira BARNHART
[2019-07-29 16:55] LABS: Bedside Glucose 94 mg/dL (70-110)
--- NOTE | 2019-07-29 21:55 | NURSING ---
Addendum entered by Ronny Mcnamara 07/30/19 05:14: 2330- pt finally agreed taking her pills. pt still confused and sleepy but tolerated taking her pills well. Original Note: 2154 pt drowsy at this time but responds to questions, bg is only 78 and refusing to drink or eat any and pt states leave me alone. will check pt again later.
[2019-07-29 22:01] LABS: Bedside Glucose 78 mg/dL (70-110)
[2019-07-29] MEDS: Aspirin E.C. 81 MG Tablet PO (23:25)
[2019-07-29] MEDS: Cefdinir 300 MG Capsule PO (23:25)
[2019-07-29] MEDS: Pramipexole Di-HCl 0.125 MG Tablet PO (23:26)
[2019-07-29] MEDS: traZODone 50 MG Tablet 25 MG PO (23:26)
[2019-07-29] MEDS: Metoprolol Tartrate 25 MG Tablet PO (23:26)
[2019-07-29] MEDS: Atorvastatin Calcium 80 MG Tablet PO (23:26)
[2019-07-29] MEDS: Benztropine 2 MG Tablet 0.5 MG PO (23:27)
[2019-07-30 04:00] VITALS: BP 108/76; PULSE 102; RESP 18; TEMP 36.6; O2SAT 95
[2019-07-30] MEDS: Levothyroxine 75 MCG Tablet PO (06:25)
[2019-07-30] MEDS: oxyCODONE 5 MG Tablet 10 MG PO (06:25)
[2019-07-30 06:28] LABS: Anion Gap 5 (5-15); BUN 3 mg/dL (7-18); BUN/Creat Ratio 3.2 RATIO (10-20); Calcium,Total 7.9 mg/dL (8.5-10.1); Chloride 116 mmol/L (98-107); Creatinine, Serum 0.93 mg/dL (0.55-1.02); EST Glomerular Filtration Rate 65 mL/min (>60); Est Glom Filt Rate - Afr Amer 78 mL/min (>60); Estimated Creatinine Clearance 51.22 ml/min; Glucose 90 mg/dL (74-106); Potassium 3.9 mmol/L (3.5-5.1); Sodium Level 145 mmol/L (136-145)
[2019-07-30] MEDS: 0.9% Saline Lock 10 ML Syringe IV ×2 (06:28→10:31)
[2019-07-30 06:50] LABS: Bedside Glucose 111 mg/dL (70-110)
[2019-07-30 07:30] VITALS: BP 116/52; PULSE 115; RESP 18; TEMP 37.8; O2SAT 95
--- NOTE | 2019-07-30 08:49 | PN_ITS ---
Patient Problems: Active and Suspected Problems ILIANA (acute kidney injury) (Acute) Intractable low back pain (Acute) Reason for Visit: Follow-up on stage IV right buttocks pressure injury Subjective: Patient was seen and examined. She feels improved. She has pain in her wound VAC site. Denies any fever or chills. She is running a low-grade fever, Tmax 100F. Objective: Physical exam: General: Alert, Oriented x3, Cooperative, No apparent distress, Well developed HEENT: Atraumatic, PERRLA, EOMI, Normocephalic Oral: Moist Mucosa Neck: Supple, Trachea Midline, Thyroid Normal Size and Texture Lungs: Clear to auscultation, Normal air movement, No rhonchi, No wheeze Cardiovascular: Regular rate, Regular Rhythm, Normal S1, Normal S2, No murmurs, PMI Normal, No rub noted Abdomen: Bowel Sounds Present, Soft, Non Tender, Non-Distended, Obese, wound vac on buttocks Extremities: No clubbing, No cyanosis, No edema, Capillary Refill Less than 3 Seconds Musculoskeletal: No Tenderness to Palpation of Joints or Extremities Neurological: Cranial nerves II-XII grossly intact, Neuro grossly intact, Sensory exam intact to light touch and pain Psych/Mental Status: Normal Affect, Appropriate Vitals/I&O's: Vital Signs Temp Pulse Resp BP Pulse Ox 100.0 F H 115 H 18 116/52 L 95 07/30/19 07:30 07/30/19 07:30 07/30/19 07:30 07/30/19 07:30 07/30/19 07:30 Oxygen Flow Rate (L/min) 3 Oxygen Delivery Method Nasal Cannula Weight: 93.7 kg Body Mass Index (BMI) 36.6 Intake and Output for Last 24 Hours 07/28/19 07/29/19 07/30/19 23:59 23:59 23:59 Intake Total 3669.25 / 3669.25 2413.33 / 2413.33 Output Total 1300 / 1300 1300 / 1500 450 / 450 Balance 2369.25 / 2369.25 1113.33 / 913.33 -450 / -450 Microbiology Past 72 Hours 07/24/19 17:42 Blood Culture (Wb) - Arm Left Blood Culture - Final No growth in 5 days. 07/25/19 14:02 Tissue - Other Gram Stain - Final 07/25/19 14:02 Tissue - Other Wound Culture - Final Serratia marcescens 07/25/19 14:02 Tissue - Other Anaerobic Culture - Preliminary No growth in 48 hours. 07/25/19 14:02 Bone - Other Gram Stain - Final 07/25/19 14:02 Bone - Other Wound Culture - Final No growth aerobically. 07/25/19 14:02 Bone - Other Anaerobic Culture - Preliminary No growth in 48 hours. Laboratory Results 07/29/19 11:12: POC Glucose 107 07/29/19 16:51: POC Glucose 94 07/29/19 21:48: POC Glucose 78 07/30/19 05:28: Sodium 145, Potassium 3.9, Chloride 116 H, Carbon Dioxide 24.0, Anion Gap 5, BUN 3 L, Creatinine 0.93, Estim Creat Clear Calc 51.22, Est GFR (MDRD) Af Amer 78, Est GFR (MDRD) Non-Af 65, BUN/Creatinine Ratio 3.2 L, Glucose 90, Calcium 7.9 L 07/30/19 06:44: POC Glucose 111 H Current Medications Acetaminophen (Tylenol) 650 mg PO Q6H PRN PRN PRN Reason: Pain Score 1-3/Temp > 100.7 F Al Hydroxide/Mg Hydroxide (Mylanta Ii) 30 ml PO Q6H PRN PRN PRN Reason: Gastric Burning Albuterol Sulfate (Ventolin Aerosols) 2.5 mg INHALATION Q2H PRN PRN PRN Reason: Shortness of Breath/Wheezing Allopurinol (Zyloprim) 300 mg PO DAILY [facility] Last Admin: 07/29/19 10:58 Dose: 300 mg Documented by: Aspirin (Ecotrin) 81 mg PO QHS [facility] Last Admin: 07/29/19 23:25 Dose: 81 mg Documented by: Atorvastatin Calcium (Lipitor) 80 mg PO QHS [facility] Last Admin: 07/29/19 23:26 Dose: 80 mg Documented by: Benztropine Mesylate (Cogentin) 0.5 mg PO QHS [facility] Last Admin: 07/29/19 23:27 Dose: 0.5 mg Documented by: Buspirone HCl (Buspar) 10 mg PO BID [facility] Last Admin: 07/29/19 23:27 Dose: 10 mg Documented by: Cefdinir (Omnicef [Equiv]) 300 mg PO Q12 [facility] Last Admin: 07/29/19 23:25 Dose: 300 mg Documented by: Gabapentin (Neurontin) 600 mg PO 4X/DAY [facility] Last Admin: 07/29/19 23:27 Dose: 600 mg Documented by: Glucagon () 1 mg IM .X1 PRN PRN Reason: Hypoglycemia Heparin Sodium (Porcine) (Heparin Na) 5,000 unit SC Q12 [facility] Last Admin: 07/29/19 23:34 Dose: 5,000 unit Documented by: Hydroxyzine Pamoate (Vistaril Pamoate Capsule) 50 mg PO 4X/DAY PRN PRN PRN Reason: ANXIETY Last Admin: 07/27/19 13:10 Dose: 50 mg Documented by: Dextrose (Dextrose 10%-Water) 250 mls @ 999 mls/hr IV .Q16M PRN; Protocol PRN Reason: HYPOGLYCEMIA Sodium Chloride () 250 mls @ 15 mls/hr IV .[id number] PRN PRN Reason: Saline Flush Last Infusion: 07/28/19 13:39 Dose: 0 mls/hr Documented by: Sodium Chloride () 250 mls @ 15 mls/hr IV .[id number] PRN PRN Reason: Additional IVPB Infusion Insulin Human Lispro (Humalog Kwikpen (Bkc)) 0 unit SC ACHS [facility]; Protocol Last Admin: 07/30/19 06:46 Dose: Not Given Documented by: Levothyroxine Sodium (Synthroid) 75 mcg PO DAILY@0600 [facility] Last Admin: 07/30/19 06:25 Dose: 75 mcg Documented by: Magnesium Hydroxide (Milk Of Magnesia) 30 ml PO DAILY PRN PRN PRN Reason: Constipation Metoprolol Tartrate (Lopressor (Beta Armani)) 25 mg PO BID [facility] Last Admin: 07/29/19 23:26 Dose: 25 mg Documented by: Morphine Sulfate () 2 mg IV Q3H PRN PRN PRN Reason: Pain Score 6-10/10 Nicotine (Nicoderm Cq (Pbkc)) 7 mg TRANSDERM. DAILY [facility] Last Admin: 07/29/19 10:59 Dose: 7 mg Documented by: Nutritional Formula (Lactose Free) (Glucerna Shake) 120 ml PO 4X/DAY [facility] Last Admin: 07/30/19 00:36 Dose: Not Given Documented by: Olanzapine (Zyprexa) 20 mg PO DAILY [facility] Last Admin: 07/29/19 10:59 Dose: 20 mg Documented by: Ondansetron HCl (Zofran) 4 mg IV Q8H PRN PRN PRN Reason: NAUSEA/VOMITING Oxycodone HCl (Oxyir) 5 mg PO Q4H PRN PRN PRN Reason: Pain Score 4-5/10 Pantoprazole Sodium (Protonix) 40 mg PO DAILY [facility] Last Admin: 07/29/19 10:58 Dose: 40 mg Documented by: Potassium Chloride (K-Dur) 10 meq PO BID [facility] Last Admin: 07/29/19 23:25 Dose: 10 meq Documented by: Pramipexole Dihydrochloride (Mirapex) 0.125 mg PO QHS [facility] Last Admin: 07/29/19 23:26 Dose: 0.125 mg Documented by: Sodium Bicarbonate (Sodium Bicarbonate) 1,300 mg PO BID [facility] Last Admin: 07/29/19 23:26 Dose: 1,300 mg Documented by: Sodium Chloride () 10 - 40 ml IV UD PRN PRN Reason: SALINE FLUSH Last Admin: 07/30/19 06:28 Dose: 10 ml Documented by: Tizanidine HCl (Zanaflex) 2 mg PO Q8H PRN PRN PRN Reason: back strain, spasms, severe Trazodone HCl (Desyrel) 25 mg PO QHS [facility] Last Admin: 07/29/19 23:26 Dose: 25 mg Documented by: Venlafaxine HCl (Effexor Xr) 150 mg PO DAILY [facility] Last Admin: 07/29/19 11:00 Dose: 150 mg Documented by: STROKE Vital Signs/Narrative: Vital Signs Temp Pulse Resp BP Pulse Ox 07/30/19 07:30 100.0 F H 115 H 18 116/52 L 95 Medical Necessity - Tobacco Use Smoking Status: Current every day smoker Tobacco Use: Vapor Assessment/Plan All Active Problems Pressure ulcer, buttock, right, unstageable (Acute) Decreased renal function (Acute) ILIANA (acute kidney injury) (Acute) Intractable low back pain (Acute) 1. POD #5, s/p Serratia marcescens/E. Coli stage IV pressure injury- right buttocks/sacral Status post wound debridement by plastic surgery, wound VAC in place Intraoperative wound cultures Serratia marcescens Will de-escalate antibiotics to cefdinir and aim for a 10 day total antibiotic c ourse 2. Acute kidney injury on CKD stage 3, likely prerenal Creatinine improved from 2.97 to 0.93 Will continue to monitor 3. Type 2 DM, sugars are controlled, continue to monitor with blood glucose checks and insulin sliding scale if needed 4. Hypertension, essential, continue metoprolol 5. Hypothyroidism, continue on Synthroid 6. Morbid obesity, BMI 36.6, lifestyle modification recommended 7. Schizoaffective disorder, remains stable, on multiple medications - benztropine, BuSpar, gabapentin, hydroxyzine, tizanidine, trazodone, Effexor 8. DVT prophylaxis with heparin subcu Code Visit Inpatient E&M: 13833 Subs Hosp L2
--- NOTE | 2019-07-30 09:24 | CASEMGMT ---
Addendum entered by Kayleen Holliday 07/30/19 10:27: FRANKY received call from Daisha in TCU stating she is able to accept pt and will submit for pre-cert. FRANKY placed a call to pt's Mark and updated him that pt has been accepted to TCU and will submit for pre-cert. Plan: TCU pending pre-cert Original Note: Social Work Note SW received message from pt's Mark stating he prefers for pt to stay at [facility] or to a SNF in [place] area. FRANKY placed a call back to Mark. Mark confirms that he would like [facility] or SNF in [facility]. FRANKY informed Mark that this worker is not sure if TCU has any beds available but will call and check. FRANKY asked Mark for second choice in the event TCU doesn't have any beds and Mark states whatever is the best. FRANKY informed Mark that this worker will call TCU to check on beds but if they don't have any beds then he will need to make a second decision. Check states understanding. FRANKY called Daisha in TCU and provided referral. FRANKY waiting for call back. FRANKY placed a call to Lary at [facility] in [place] and updated her that pt's is now wanting SNF in [place] and to disregard referral. Lray states understanding. Per physician, pt will be discharged on PO antibiotics. Plan: TCU pending acceptance and pre-cert Kayleen Holliday RHEOSTAT ASSEMBLER, TITLE I ASSISTANT
[2019-07-30] MEDS: busPIRone 5 MG Tablet 10 MG PO ×2 (10:31→22:35)
[2019-07-30] MEDS: Venlafaxine XR 150 MG Capsule PO (10:31)
[2019-07-30 10:32] VITALS: PULSE 115
[2019-07-30] MEDS: Gabapentin 600 MG Tablet PO ×4 (10:32→22:34)
[2019-07-30] MEDS: Metoprolol Tartrate 25 MG Tablet PO ×2 (10:32→22:34)
[2019-07-30] MEDS: Heparin Injection (Vial) 5,000 UNIT/ML VIAL 5000 UNIT SC ×2 (10:32→22:56)
[2019-07-30] MEDS: Pantoprazole Sodium 40 MG Tablet PO (10:32)
[2019-07-30] MEDS: Allopurinol 300 MG Tablet PO (10:34)
[2019-07-30] MEDS: OLANZapine 10 MG Tablet 20 MG PO (10:34)
[2019-07-30] MEDS: Cefdinir 300 MG Capsule PO ×2 (10:34→22:35)
[2019-07-30] MEDS: Sodium Bicarbonate 650 MG Tablet 1300 MG PO ×2 (10:34→22:34)
[2019-07-30] MEDS: Glucerna Shake 120 ML LIQUID PO ×3 (10:35→17:58)
[2019-07-30] MEDS: oxyCODONE 5 MG Tablet PO ×3 (10:39→20:01)
[2019-07-30 10:40] LABS: Basophil# 0.12 X10^3/uL; Eosinophil# 0.66 X10^3/uL; Hemoglobin 11.4 g/dL (12.0-15.0); Mean Corp Hgb Conc 30.8 g/dL (32-36); Mean Corpuscular Hgb 31.6 pg (27.0-32.0); Mean Corpuscular Volume 102.5 fL (81-99); Mean Platelet Vol. 8.6 fl (6.2-12.0); Monocyte# 1.71 X10^3/uL; NRBC Flagged by Analyzer 0.1 % (0-5); POSITIVE DIFFERENTIAL YES; POSITIVE MORPHOLOGY YES; Platelet Count 407 K/mm3 (150-450); RBC Distribution Width CV 15.5 % (11.6-14.6); RBC Distribution Width SD 58.1 fl (35.1-43.9); Red Blood Count 3.61 M/mm3 (4.2-5.4); White Blood Count 19.3 K/mm3 (4.4-11.0)
[2019-07-30 10:43] LABS: Differential Indicated SCAN CRITERIA MET
[2019-07-30 11:36] LABS: Bedside Glucose 137 mg/dL (70-110)
[2019-07-30 11:38] LABS: Scan Smear per Review Criteria MANUAL DIFF
[2019-07-30 11:39] LABS: Neutrophil-Segmented 51 % (47-70)
[2019-07-30 11:40] LABS: Eosinophil 4 % (0-5); Metamyelocyte 3 % (0-1); Monocyte 4 % (0-10); Neutrophil-Band 3 % (0-5)
[2019-07-30 11:41] LABS: Lymphocyte 35 % (19-41)
[2019-07-30 11:42] LABS: Absolute Neutrophil Count 10.4 X10^3/uL (2.0-7.7)
[2019-07-30 11:43] LABS: Absolute Lymphocyte Count 6.76 X10^3/uL (0.83-4.51); Lymphocyte # 6.76 X10^3/ul (4.0)
[2019-07-30 11:44] LABS: Neutrophil # 10.42 X10^3/uL (2.7-7.7)
[2019-07-30 11:45] LABS: Platelet Estimate ADEQUATE (ADEQ); Red Cell Morphology N CHROM NORMAL (NORM C&C)
[2019-07-30 11:46] LABS: Anisocytosis 1+
[2019-07-30 11:48] LABS: Reactive Lymphocyte 1+
--- NOTE | 2019-07-30 12:44 | NURSING ---
Reviewed student charting
[2019-07-30] MEDS: tiZANidine HCl 2 MG Tablet PO (14:43)
[2019-07-30 15:00] VITALS: BP 127/67; PULSE 103; RESP 18; TEMP 37.6; O2SAT 95
[2019-07-30 16:15] LABS: Bedside Glucose 148 mg/dL (70-110)
--- NOTE | 2019-07-30 18:19 | PCM.PN.SRG ---
Patient Problems: Active and Suspected Problems ILIANA (acute kidney injury) (Acute) Intractable low back pain (Acute) - Physical Exam Vitals/I&O's: Vital Signs Temp Pulse Resp BP Pulse Ox 99.6 F H 103 H 18 127/67 H 95 07/30/19 15:00 07/30/19 15:00 07/30/19 15:00 07/30/19 15:00 07/30/19 15:00 Oxygen Flow Rate (L/min) 3 Oxygen Delivery Method Nasal Cannula Weight: 206 lb 9.17 oz Body Mass Index (BMI) 36.6 Intake and Output for Last 24 Hours 07/28/19 07/29/19 07/30/19 23:59 23:59 23:59 Intake Total 3669.25 / 3669.25 2413.33 / 2413.33 Output Total 1300 / 1300 1300 / 1500 750 / 750 Balance 2369.25 / 2369.25 1113.33 / 913.33 -750 / -750 Skin: Ulcer/ Wound - right buttock and sacral wound is stable. VAC in place. Minimal drainage in the canister. Microbiology Past 72 Hours 07/24/19 17:42 Blood Culture (Wb) - Arm Left Blood Culture - Final No growth in 5 days. 07/25/19 14:02 Tissue - Other Gram Stain - Final 07/25/19 14:02 Tissue - Other Wound Culture - Final Serratia marcescens 07/25/19 14:02 Tissue - Other Anaerobic Culture - Preliminary No growth in 48 hours. 07/25/19 14:02 Bone - Other Gram Stain - Final 07/25/19 14:02 Bone - Other Wound Culture - Final No growth aerobically. 07/25/19 14:02 Bone - Other Anaerobic Culture - Preliminary No growth in 48 hours. Pathology - pending. Laboratory Results 07/29/19 21:48: POC Glucose 78 07/30/19 05:00: WBC Cancelled, Corrected WBC Cancelled, RBC Cancelled, Hgb Cancelled, Hct Cancelled, MCV Cancelled, MCH Cancelled, MCHC Cancelled, RDW Std Deviation Cancelled, RDW Coeff of Harper Cancelled, Plt Count Cancelled, MPV Cancelled, Immature Gran % (Auto) Cancelled, Neut % (Auto) Cancelled, Lymph % (Auto) Cancelled, [place] % (Auto) Cancelled, Eos % (Auto) Cancelled, Baso % (Auto) Cancelled, Absolute Neuts (auto) Cancelled, Absolute Lymphs (auto) Cancelled, Total Counted Cancelled, Neutrophils % (Manual) Cancelled, Band Neutrophils % Cancelled, Lymphocytes % (Manual) Cancelled, Monocytes % (Manual) Cancelled, Eosinophils % (Manual) Cancelled, Basophils % (Manual) Cancelled, Metamyelocytes % Cancelled, Myelocytes % Cancelled, Promyelocytes % Cancelled, Blast Cells % Cancelled, Plasma Cell % (Manual) Cancelled, Other Cells % Cancelled, Nucleated RBC % Cancelled, Nucleated RBCs/100 WBC Cancelled, Differential Comment Cancelled, Diff Path Review Cancelled, Hypersegmented Neuts Cancelled, Atypical Lymphocytes Cancelled, Reactive Lymphocytes Cancelled, Smudge Cells Cancelled, Toxic Granulation Cancelled, Toxic Vacuolation Cancelled, Dohle Bodies Cancelled, Negrito Rods Cancelled, Platelet Estimate Cancelled, Plt Morphology Comment Cancelled, RBC Morphology Cancelled, Polychromasia Cancelled, Hypochromasia Cancelled, Poikilocytosis Cancelled, Basophilic Stippling Cancelled, Anisocytosis Cancelled, Microcytosis Cancelled, Macrocytosis Cancelled, Spherocytes Cancelled, Sickle Cells Cancelled, Target Cells Cancelled, Tear Drop Cells Cancelled, Ovalocytes Cancelled, Stomatocytes Cancelled, [place] Bodies Cancelled, [place] Cells Cancelled, Bite Cells Cancelled, Crenated Cell Cancelled, Acanthocytes (Spur) Cancelled, Rouleaux Cancelled, Schistocytes Cancelled 07/30/19 05:28: Sodium 145, Potassium 3.9, Chloride 116 H, Carbon Dioxide 24.0, Anion Gap 5, BUN 3 L, Creatinine 0.93, Estim Creat Clear Calc 51.22, Est GFR (MDRD) Af Amer 78, Est GFR (MDRD) Non-Af 65, BUN/Creatinine Ratio 3.2 L, Glucose 90, Calcium 7.9 L 07/30/19 06:44: POC Glucose 111 H 07/30/19 10:25: WBC 19.3 H, RBC 3.61 L, Hgb 11.4 L, Hct 37.0, MCV 102.5 H, MCH 31.6, MCHC 30.8 L, RDW Std Deviation 58.1 H, RDW Coeff of Harper 15.5 H, Plt Count 407, MPV 8.6, Immature Gran % (Auto) GRAINER MACHINE, Neut % (Auto) GRAINER MACHINE, Lymph % (Auto) GRAINER MACHINE, [place] % (Auto) GRAINER MACHINE, Eos % (Auto) GRAINER MACHINE, Baso % (Auto) GRAINER MACHINE, Absolute Neuts (auto) 10.4 H, Absolute Lymphs (auto) 6.76 H, Neutrophils % (Manual) 51, Band Neutrophils % 3, Lymphocytes % (Manual) 35, Monocytes % (Manual) 4, Eosinophils % (Manual) 4, Metamyelocytes % 3 H, Nucleated RBC % 0.1, Diff Path Review May foll, Reactive Lymphocytes 1+, Platelet Estimate ADEQUATE, RBC Morphology N CHROM, Anisocytosis 1+ 07/30/19 11:11: POC Glucose 137 H 07/30/19 16:07: POC Glucose 148 H Current Medications Acetaminophen (Tylenol) 650 mg PO Q6H PRN PRN PRN Reason: Pain Score 1-3/Temp > 100.7 F Al Hydroxide/Mg Hydroxide (Mylanta Ii) 30 ml PO Q6H PRN PRN PRN Reason: Gastric Burning Albuterol Sulfate (Ventolin Aerosols) 2.5 mg INHALATION Q2H PRN PRN PRN Reason: Shortness of Breath/Wheezing Allopurinol (Zyloprim) 300 mg PO DAILY [facility] Last Admin: 07/30/19 10:34 Dose: 300 mg Documented by: Aspirin (Ecotrin) 81 mg PO QHS [facility] Last Admin: 07/29/19 23:25 Dose: 81 mg Documented by: Atorvastatin Calcium (Lipitor) 80 mg PO QHS [facility] Last Admin: 07/29/19 23:26 Dose: 80 mg Documented by: Benztropine Mesylate (Cogentin) 0.5 mg PO QHS [facility] Last Admin: 07/29/19 23:27 Dose: 0.5 mg Documented by: Buspirone HCl (Buspar) 10 mg PO BID [facility] Last Admin: 07/30/19 10:31 Dose: 10 mg Documented by: Cefdinir (Omnicef [Equiv]) 300 mg PO Q12 [facility] Last Admin: 07/30/19 10:34 Dose: 300 mg Documented by: Gabapentin (Neurontin) 600 mg PO 4X/DAY [facility] Last Admin: 07/30/19 17:58 Dose: 600 mg Documented by: Glucagon () 1 mg IM .X1 PRN PRN Reason: Hypoglycemia Heparin Sodium (Porcine) (Heparin Na) 5,000 unit SC Q12 [facility] Last Admin: 07/30/19 10:32 Dose: 5,000 unit Documented by: Hydroxyzine Pamoate (Vistaril Pamoate Capsule) 50 mg PO 4X/DAY PRN PRN PRN Reason: ANXIETY Last Admin: 07/27/19 13:10 Dose: 50 mg Documented by: Dextrose (Dextrose 10%-Water) 250 mls @ 999 mls/hr IV .Q16M PRN; Protocol PRN Reason: HYPOGLYCEMIA Sodium Chloride () 250 mls @ 15 mls/hr IV .[id number] PRN PRN Reason: Saline Flush Last Infusion: 07/28/19 13:39 Dose: 0 mls/hr Documented by: Sodium Chloride () 250 mls @ 15 mls/hr IV .[id number] PRN PRN Reason: Additional IVPB Infusion Insulin Human Lispro (Humalog Kwikpen (Bkc)) 0 unit SC ACHS [facility]; Protocol Last Admin: 07/30/19 16:10 Dose: Not Given Documented by: Levothyroxine Sodium (Synthroid) 75 mcg PO DAILY@0600 [facility] Last Admin: 07/30/19 06:25 Dose: 75 mcg Documented by: Magnesium Hydroxide (Milk Of Magnesia) 30 ml PO DAILY PRN PRN PRN Reason: Constipation Metoprolol Tartrate (Lopressor (Beta Armani)) 25 mg PO BID [facility] Last Admin: 07/30/19 10:32 Dose: 25 mg Documented by: Morphine Sulfate () 2 mg IV Q3H PRN PRN PRN Reason: Pain Score 6-10/10 Nicotine (Nicoderm Cq (Pbkc)) 7 mg TRANSDERM. DAILY [facility] Last Admin: 07/30/19 10:33 Dose: 7 mg Documented by: Nutritional Formula (Lactose Free) (Glucerna Shake) 120 ml PO 4X/DAY [facility] Last Admin: 07/30/19 17:58 Dose: 120 ml Documented by: Olanzapine (Zyprexa) 20 mg PO DAILY [facility] Last Admin: 07/30/19 10:34 Dose: 20 mg Documented by: Ondansetron HCl (Zofran) 4 mg IV Q8H PRN PRN PRN Reason: NAUSEA/VOMITING Oxycodone HCl (Oxyir) 5 mg PO Q4H PRN PRN PRN Reason: Pain Score 4-5/10 Last Admin: 07/30/19 14:43 Dose: 5 mg Documented by: Pantoprazole Sodium (Protonix) 40 mg PO DAILY [facility] Last Admin: 07/30/19 10:32 Dose: 40 mg Documented by: Potassium Chloride (K-Dur) 10 meq PO BID [facility] Last Admin: 07/30/19 10:39 Dose: 10 meq Documented by: Pramipexole Dihydrochloride (Mirapex) 0.125 mg PO QHS [facility] Last Admin: 07/29/19 23:26 Dose: 0.125 mg Documented by: Sodium Bicarbonate (Sodium Bicarbonate) 1,300 mg PO BID [facility] Last Admin: 07/30/19 10:34 Dose: 1,300 mg Documented by: Sodium Chloride () 10 - 40 ml IV UD PRN PRN Reason: SALINE FLUSH Last Admin: 07/30/19 10:31 Dose: 10 ml Documented by: Tizanidine HCl (Zanaflex) 2 mg PO Q8H PRN PRN PRN Reason: back strain, spasms, severe Last Admin: 07/30/19 14:43 Dose: 2 mg Documented by: Trazodone HCl (Desyrel) 25 mg PO QHS [facility] Last Admin: 07/29/19 23:26 Dose: 25 mg Documented by: Venlafaxine HCl (Effexor Xr) 150 mg PO DAILY [facility] Last Admin: 07/30/19 10:31 Dose: 150 mg Documented by: Medical Necessity - Tobacco Use Smoking Status: Current every day smoker Tobacco Use: Vapor Assessment/Plan All Active Problems Pressure ulcer, buttock, right, unstageable (Acute) Decreased renal function (Acute) ILIANA (acute kidney injury) (Acute) Intractable low back pain (Acute) 1. Infected right buttock pressure sore, Stage IV. 2. Necrotizing soft tissue infection. 2. Diabetes mellitus. 3. Smoker. Operative culture showed Serratia marcescens. Will change the Meropenem to Cefdinir. Pathology is pending. Anticipate increased metabolic demands from the infection and from the pressure sore. Prealbumin was 14.4. Encourage nutritional supplementation with protein to help the healing process. After discharge, can return [facility]. With the severity of the infection and the large size of the wound and the probable need for IV antibiotics, patient would be best served at an EC. She has been approved for TCU. Encouraged patient to stop smoking as it may have deleterious effects on wound healing.
[2019-07-30 22:20] VITALS: BP 120/56; PULSE 87; RESP 18; TEMP 37.3; O2SAT 93
[2019-07-30] MEDS: Benztropine 2 MG Tablet 0.5 MG PO (22:32)
[2019-07-30] MEDS: traZODone 50 MG Tablet 25 MG PO (22:33)
[2019-07-30 22:34] VITALS: PULSE 87
[2019-07-30] MEDS: Pramipexole Di-HCl 0.125 MG Tablet PO (22:34)
[2019-07-30] MEDS: Atorvastatin Calcium 80 MG Tablet PO (22:35)
[2019-07-30] MEDS: Aspirin E.C. 81 MG Tablet PO (22:36)
[2019-07-30] MEDS: Acetaminophen 325 MG Tablet 650 MG PO (22:56)
[2019-07-30] MEDS: Mag Hydrox/Al Hydrox/Simeth 30 ML UDC PO (23:03)
[2019-07-30 23:05] LABS: Bedside Glucose 111 mg/dL (70-110)
[2019-07-31] MEDS: 0.9% Saline Lock 10 ML Syringe IV (01:35)
[2019-07-31] MEDS: Levothyroxine 75 MCG Tablet PO (04:39)
[2019-07-31 04:43] VITALS: BP 103/52; PULSE 75; RESP 18; TEMP 36.4; O2SAT 95
[2019-07-31 05:08] LABS: Absolute Lymphocyte Count 4.52 X10^3/uL (0.83-4.51); Absolute Neutrophil Count 6.3 X10^3/uL (2.0-7.7); Basophil# 0.07 X10^3/uL; Basophil% 0.5 % (0-1); Eosinophil# 0.53 X10^3/uL; Hematocrit 30.2 % (37-47); Hemoglobin 9.3 g/dL (12.0-15.0); Lymphocyte # 4.52 X10^3/ul (4.0); Lymphocyte % 34.3 % (19-41); Mean Corp Hgb Conc 30.8 g/dL (32-36); Mean Corpuscular Hgb 31.7 pg (27.0-32.0); Mean Corpuscular Volume 103.1 fL (81-99); Mean Platelet Vol. 8.5 fl (6.2-12.0); Monocyte# 1.37 X10^3/uL; Monocyte% 10.4 % (0-10); NRBC Flagged by Analyzer 0.2 % (0-5); Platelet Count 305 K/mm3 (150-450); RBC Distribution Width CV 15.4 % (11.6-14.6); RBC Distribution Width SD 57.2 fl (35.1-43.9); Red Blood Count 2.93 M/mm3 (4.2-5.4); White Blood Count 13.2 K/mm3 (4.4-11.0)
[2019-07-31] MEDS: Acetaminophen 325 MG Tablet 650 MG PO (05:09)
[2019-07-31 05:32] LABS: Albumin, Serum 1.6 g/dL (3.2-5.0); BUN 5 mg/dL (7-18); Calcium,Total 7.9 mg/dL (8.5-10.1); Chloride 114 mmol/L (98-107); EST Glomerular Filtration Rate 60 mL/min (>60); Est Glom Filt Rate - Afr Amer 72 mL/min (>60); Estimated Creatinine Clearance 47.63 ml/min; Glucose 98 mg/dL (74-106); Phosphorus 2.5 mg/dL (2.5-4.9); Potassium 3.7 mmol/L (3.5-5.1); Sodium Level 146 mmol/L (136-145)
[2019-07-31 07:00] LABS: Bedside Glucose 102 mg/dL (70-110)
[2019-07-31 09:04] VITALS: BP 116/52; PULSE 80; RESP 18; TEMP 36.2; O2SAT 97
[2019-07-31] MEDS: Sodium Bicarbonate 650 MG Tablet 1300 MG PO (09:06)
[2019-07-31] MEDS: Cefdinir 300 MG Capsule PO (09:06)
[2019-07-31] MEDS: Pantoprazole Sodium 40 MG Tablet PO (09:06)
[2019-07-31 09:07] VITALS: PULSE 80
[2019-07-31] MEDS: Metoprolol Tartrate 25 MG Tablet PO (09:07)
[2019-07-31] MEDS: Allopurinol 300 MG Tablet PO (09:07)
[2019-07-31] MEDS: Venlafaxine XR 150 MG Capsule PO (09:07)
[2019-07-31] MEDS: Gabapentin 600 MG Tablet PO (09:07)
[2019-07-31] MEDS: Heparin Injection (Vial) 5,000 UNIT/ML VIAL 5000 UNIT SC (09:07)
[2019-07-31] MEDS: busPIRone 5 MG Tablet 10 MG PO (09:07)
--- NOTE | 2019-07-31 09:07 | NURSING ---
Pt had gotten up to the chair and the wound VAC dressing had curled up slightly. Leak alarm going off at this time. patient assisted back into bed. placed another piece of black foam. Good seal noted at 150mmHg low continuous suction. pt tolerated well. will continue to monitor. applied extra drape to the cleft area where the drape tends to roll.
[2019-07-31] MEDS: OLANZapine 10 MG Tablet 20 MG PO (09:08)
[2019-07-31] MEDS: Glucerna Shake 120 ML LIQUID PO (09:08)
--- NOTE | 2019-07-31 10:38 | PCM.TXEXTCAR ---
- Diet 07/26/19 14:30 Diet: Carbohydrate Controlled Is pt able to select menu?: Yes - Routine Orders/Code Status O2 Liters per Minute: 3L O2 Frequency: Continuous Keep PO Greater than or Equal to (%): 92 - encourage use of incentive spirometer Routine Lab Work: CBC - within 3 days, BMP - within 3 days - Wound(s) left forearm Wound Type: Abrasion right buttocks Wound Type: Pressure Injury Dressing Change: KCI wound VAC gluteal cleft -right side Wound Type: Pressure Injury - Therapies Weight Bearing: Weight bearing as tolerated Physical Therapy: Eval and Treat Occupational Therapy: Eval and Treat - Allergies/Procedures Done in Hospital Allergies/Adverse Reactions: Allergies Iodinated Contrast Media [CONTRASTS] Allergy (Verified 07/24/19 16:36) Hives morphine Adverse Reaction (Verified 07/24/19 16:36) Nausea Procedures: Wound Vac placement, - - Excision infected necrotizing right buttock and sacral pressure sore, Stage IV, with partial ostectomy for osteomyelitis. - Type of Care/Length of Stay Estimated LOS: Convalescent Care Less Than 30 days Type of Care Needed: Skilled Rehab Potential: Fair Prognosis: Fair - Additional Orders/Day of Discharge Additional Orders: Patient's Torsemide and Bumex were held during this admission for ILIANA. Her Lasix was resumed at discharge. Repeat BMP needed within 3 days. Consider re-introduction of other diuretics if needed. Perform daily weights. Day of Discharge: 07/31/19 - Dietary and Speech Recommendations Dietitian Recommendations/Changes: Rec diet change to 1800 rossi Cardiac / low sodium w/ fluid restriction as indicated d/t pmhx. Rec [place] bid - order from pharmacy - to help w/ wound healing - Follow Up Care Primary Care Physician: Zaira Donaldson DO [Primary Care Provider] - Please follow up with your Primary Care Physician in: within 2 weeks
--- NOTE | 2019-07-31 10:45 | DS.PCM_ITS ---
Discharge Date and Diagnosis - Problem List Patient Problems: Active and Suspected Problems ILIANA (acute kidney injury) (Acute) Intractable low back pain (Acute) Date of Admission: 07/24/19 Date of Discharge: 07/31/19 - Primary Discharge Diagnosis Active and Suspected Problems ILIANA (acute kidney injury) (Acute) Intractable low back pain (Acute) s/p Serratia marcescens/E. Coli stage IV pressure injury- right buttocks/sacral, Status post wound debridement Nicotine dependence - Secondary Discharge Diagnosis Chronic Problems Pressure ulcer of sacral region, stage 4 (Chronic) infected necrotizing right buttock and right sacral pressure sore, Stage IV Pressure ulcer of right buttock, stage 4 (Chronic) infected necrotizing right buttock and right sacral pressure sore, Stage IV Necrotizing soft tissue infection (Chronic) Blood glucose elevated (Chronic) Hypertension (Chronic) Hyperlipidemia (Chronic) Chronic back pain (Chronic) Impaired mobility (Chronic) Severe obesity (BMI 35.0-35.9 with comorbidity) (Chronic) CKD (chronic kidney disease), stage III (Chronic) Diabetes mellitus, type II (Chronic) Anxiety and depression (Chronic) RLS (restless legs syndrome) (Chronic) Nicotine vapor product user (Chronic) Former tobacco use (Chronic) Macrocytic anemia (Chronic) Hospital Course and Treatment Imaging Results: Clinical Impression(s) from Imaging Studies Lumbar Spine X-Ray 07/24/19 16:56 IMPRESSION: Evidence of L3-S1 surgical fusion. There is no acute fracture or subluxation. Electronically Signed: Jimmy Lara DO at 18:59 EST Tel [phone], Service support , Chest X-Ray 07/24/19 18:34 IMPRESSION: 1. Cardiomegaly. 2. Minimal bibasilar atelectasis. Electronically Signed: Jimmy Lara DO at 18:59 EST Tel [phone], Service support , Pelvis CT 07/24/19 21:56 IMPRESSION: Subcutaneous edema and abnormal air in the soft tissues consistent with infection. No osseous destruction to suggest osteomyelitis. Electronically Signed: Pancho Cortes MD at 23:09 EST , Service support , Renal Ultrasound 07/25/19 05:55 IMPRESSION: Normal ultrasound of the kidneys and urinary bladder. Electronically Signed: Pancho Cortes MD at 10:25 EST , Service support , Consultations 07/24/19 21:28 Consult: Onc/Wound/astronautical engineer Routine Comment: Plastic surgery Operations: - - s/p I & D and partial ostectomy Summary of Care Provided: The patient is a 63 year old F with PMHx of Type 2 DM, schizoaffective disorder, who had a mechanical and developed worsening right buttocks sore. She was previously seen at the wound center. Previous wound culture showed Serratia marcescens, E. coli, and Anaerobic cocci. She was on Cleocin and Levaquin. She came in with worsening foul smelling drainage. CT Pelvis showed subcutaneous edema and abnormal air in the soft tissues consistent with infection. No osseous destruction to suggest osteomyelitis. She underwent excision infected necrotizing right buttock and sacral pressure sore, Stage IV, with partial ostectomy for osteomyelitis. She was managed on IV meropenem. Patient had ILIANA that was present on admission. Her diuretics were held. Her kidney numbers improved with IVF to normal. She was started back on her Lasix at discharge. She was seen and skilled for discharge to a SNF. Patient Problems: Active and Suspected Problems ILIANA (acute kidney injury) (Acute) Intractable low back pain (Acute) Subjective: On the day of discharge, patient was seen and examined. She denied any new complains. No acute events overnight. Wound vac in situ Objective: Physical exam: General: Alert, Oriented x3, Cooperative, No apparent distress, Well developed HEENT: Atraumatic, PERRLA, EOMI, Normocephalic Oral: Moist Mucosa Neck: Supple, Trachea Midline, Thyroid Normal Size and Texture Lungs: Clear to auscultation, Normal air movement, No rhonchi, No wheeze Cardiovascular: Regular rate, Regular Rhythm, Normal S1, Normal S2, No murmurs, PMI Normal, No rub noted Abdomen: Bowel Sounds Present, Soft, Non Tender, Non-Distended, Obese, wound vac on buttocks Extremities: No clubbing, No cyanosis, No edema, Capillary Refill Less than 3 Seconds Musculoskeletal: No Tenderness to Palpation of Joints or Extremities Neurological: Cranial nerves II-XII grossly intact, Neuro grossly intact, Sensory exam intact to light touch and pain Psych/Mental Status: Normal Affect, Appropriate - Physical Exam Vitals/I&O's: Vital Signs Temp Pulse Resp BP Pulse Ox 97.2 F L 80 18 116/52 L 97 07/31/19 09:04 07/31/19 09:07 07/31/19 09:04 07/31/19 09:04 07/31/19 09:04 Oxygen Flow Rate (L/min) 3 Oxygen Delivery Method Nasal Cannula Weight: 93.7 kg Body Mass Index (BMI) 36.6 Intake and Output for Last 24 Hours 07/29/19 07/30/19 07/31/19 23:59 23:59 23:59 Intake Total 2413.33 / 2413.33 990 / 990 Output Total 1300 / 1500 1050 / 1125 375 / 375 Balance 1113.33 / 913.33 -1050 / -875 615 / 615 Microbiology Past 72 Hours 07/25/19 14:02 Bone - Other Gram Stain - Final 07/25/19 14:02 Bone - Other Wound Culture - Final No growth aerobically. 07/25/19 14:02 Bone - Other Anaerobic Culture - Final No growth in 5 days. 07/25/19 14:02 Tissue - Other Gram Stain - Final 07/25/19 14:02 Tissue - Other Wound Culture - Final Serratia marcescens 07/25/19 14:02 Tissue - Other Anaerobic Culture - Final No growth in 5 days. 07/24/19 17:42 Blood Culture (Wb) - Arm Left Blood Culture - Final No growth in 5 days. Laboratory Results 07/30/19 10:25: Immature Gran % (Auto) KETTLE FIRER, Neut % (Auto) KETTLE FIRER, Lymph % (Auto) KETTLE FIRER, Marshall % (Auto) KETTLE FIRER, Eos % (Auto) KETTLE FIRER, Baso % (Auto) KETTLE FIRER, Absolute Neuts (auto) 10.4 H, Absolute Lymphs (auto) 6.76 H, Neutrophils % (Manual) 51, Band Neutrophils % 3, Lymphocytes % (Manual) 35, Monocytes % (Manual) 4, Eosinophils % (Manual) 4, Metamyelocytes % 3 H, Diff Path Review May foll, Reactive Lymphocytes 1+, Platelet Estimate ADEQUATE, RBC Morphology N CHROM, Anisocytosis 1+ 07/30/19 11:11: POC Glucose 137 H 07/30/19 16:07: POC Glucose 148 H 07/30/19 23:01: POC Glucose 111 H 07/31/19 04:55: WBC 13.2 H, RBC 2.93 L, Hgb 9.3 L, Hct 30.2 L, MCV 103.1 H, MCH 31.7, MCHC 30.8 L, RDW Std Deviation 57.2 H, RDW Coeff of Harper 15.4 H, Plt Count 305, MPV 8.5, Immature Gran % (Auto) 2.800 H, Neut % (Auto) 48.0, Lymph % (Auto) 34.3, Marshall % (Auto) 10.4 H, Eos % (Auto) 4.0, Baso % (Auto) 0.5, Absolute Neuts (auto) 6.3, Absolute Lymphs (auto) 4.52 H, Nucleated RBC % 0.2 07/31/19 04:55: Sodium 146 H, Potassium 3.7, Chloride 114 H, Carbon Dioxide 30.0, BUN 5 L, Creatinine 1.00, Estim Creat Clear Calc 47.63, Est GFR (MDRD) Af Amer 72, Est GFR (MDRD) Non-Af 60, BUN/Creatinine Ratio 5.0 L, Glucose 98, Calcium 7.9 L, Phosphorus 2.5, Albumin 1.6 L 07/31/19 06:51: POC Glucose 102 Current Medications Acetaminophen (Tylenol) 650 mg PO Q6H PRN PRN PRN Reason: Pain Score 1-3/Temp > 100.7 F Last Admin: 07/31/19 05:09 Dose: 650 mg Documented by: Al Hydroxide/Mg Hydroxide (Mylanta Ii) 30 ml PO Q6H PRN PRN PRN Reason: Gastric Burning Last Admin: 07/30/19 23:03 Dose: 30 ml Documented by: Albuterol Sulfate (Ventolin Aerosols) 2.5 mg INHALATION Q2H PRN PRN PRN Reason: Shortness of Breath/Wheezing Allopurinol (Zyloprim) 300 mg PO DAILY [facility] [place] Last Admin: 07/31/19 09:07 Dose: 300 mg Documented by: Aspirin (Ecotrin) 81 mg PO QHS [facility] Last Admin: 07/30/19 22:36 Dose: 81 mg Documented by: Atorvastatin Calcium (Lipitor) 80 mg PO QHS [facility] [place] Last Admin: 07/30/19 22:35 Dose: 80 mg Documented by: Benztropine Mesylate (Cogentin) 0.5 mg PO QHS [facility] [place] Last Admin: 07/30/19 22:32 Dose: 0.5 mg Documented by: Buspirone HCl (Buspar) 10 mg PO BID [facility] [place] Last Admin: 07/31/19 09:07 Dose: 10 mg Documented by: Cefdinir (Omnicef [Equiv]) 300 mg PO Q12 [facility] Last Admin: 07/31/19 09:06 Dose: 300 mg Documented by: Gabapentin (Neurontin) 600 mg PO 4X/DAY [facility] Last Admin: 07/31/19 09:07 Dose: 600 mg Documented by: Glucagon () 1 mg IM .X1 PRN PRN Reason: Hypoglycemia Heparin Sodium (Porcine) (Heparin Na) 5,000 unit SC Q12 [facility] Last Admin: 07/31/19 09:07 Dose: 5,000 unit Documented by: Hydroxyzine Pamoate (Vistaril Pamoate Capsule) 50 mg PO 4X/DAY PRN PRN PRN Reason: ANXIETY Last Admin: 07/27/19 13:10 Dose: 50 mg Documented by: Dextrose (Dextrose 10%-Water) 250 mls @ 999 mls/hr IV .Q16M PRN; Protocol PRN Reason: HYPOGLYCEMIA Sodium Chloride () 250 mls @ 15 mls/hr IV .[id number] PRN PRN Reason: Saline Flush Last Infusion: 07/28/19 13:39 Dose: 0 mls/hr Documented by: Sodium Chloride () 250 mls @ 15 mls/hr IV .[id number] PRN PRN Reason: Additional IVPB Infusion Insulin Human Lispro (Humalog Kwikpen (Bkc)) 0 unit SC [facility]; Protocol Last Admin: 07/31/19 06:56 Dose: Not Given Documented by: Levothyroxine Sodium (Synthroid) 75 mcg PO DAILY@0600 [facility] Last Admin: 07/31/19 04:39 Dose: 75 mcg Documented by: Magnesium Hydroxide (Milk Of Magnesia) 30 ml PO DAILY PRN PRN PRN Reason: Constipation Metoprolol Tartrate (Lopressor (Beta Armani)) 25 mg PO BID [facility] Last Admin: 07/31/19 09:07 Dose: 25 mg Documented by: Morphine Sulfate () 2 mg IV Q3H PRN PRN PRN Reason: Pain Score 6-10/10 Nicotine (Nicoderm Cq (Pbkc)) 7 mg TRANSDERM. DAILY [facility] [place] Last Admin: 07/31/19 09:06 Dose: 7 mg Documented by: Nutritional Formula (Lactose Free) (Glucerna Shake) 120 ml PO 4X/DAY [facility] [place] Last Admin: 07/31/19 09:08 Dose: 120 ml Documented by: Olanzapine (Zyprexa) 20 mg PO DAILY [facility] [place] Last Admin: 07/31/19 09:08 Dose: 20 mg Documented by: Ondansetron HCl (Zofran) 4 mg IV Q8H PRN PRN PRN Reason: NAUSEA/VOMITING Oxycodone HCl (Oxyir) 5 mg PO Q4H PRN PRN PRN Reason: Pain Score 4-5/10 Last Admin: 07/30/19 20:01 Dose: 5 mg Documented by: Pantoprazole Sodium (Protonix) 40 mg PO DAILY [facility] [place] Last Admin: 07/31/19 09:06 Dose: 40 mg Documented by: Potassium Chloride (K-Dur) 10 meq PO BID [facility] [place] Last Admin: 07/31/19 09:08 Dose: 10 meq Documented by: Pramipexole Dihydrochloride (Mirapex) 0.125 mg PO QHS [facility] [place] Last Admin: 07/30/19 22:34 Dose: 0.125 mg Documented by: Sodium Bicarbonate (Sodium Bicarbonate) 1,300 mg PO BID [facility] [place] Last Admin: 07/31/19 09:06 Dose: 1,300 mg Documented by: Sodium Chloride () 10 - 40 ml IV UD PRN PRN Reason: SALINE FLUSH Last Admin: 07/31/19 01:35 Dose: 10 ml Documented by: Tizanidine HCl (Zanaflex) 2 mg PO Q8H PRN PRN PRN Reason: back strain, spasms, severe Last Admin: 07/30/19 14:43 Dose: 2 mg Documented by: Trazodone HCl (Desyrel) 25 mg PO QHS [facility] [place] Last Admin: 07/30/19 22:33 Dose: 25 mg Documented by: Venlafaxine HCl (Effexor Xr) 150 mg PO DAILY [facility] Last Admin: 07/31/19 09:07 Dose: 150 mg Documented by: Discharge Diet: Low fat/ Low Cholesterol, 2000 mg Sodium Diet, Carb Control Diet Discharge Activity: Return to Normal Activity Home Medications: Medications to take at Discharge Allopurinol 300 mg PO DAILY 07/22/19 Benztropine Mesylate 0.5 mg PO QHS 07/22/19 Buspirone HCl 10 mg PO BID 07/22/19 Cyanocobalamin (Vitamin B-12) [Vitamin B-12] 1,000 mcg PO DAILY 07/22/19 Empagliflozin [Jardiance] 10 mg PO DAILY 07/22/19 Furosemide 40 mg PO BID 07/22/19 Gabapentin [Neurontin] 600 mg PO 4X/DAY 07/22/19 Hydroxyzine HCl 50 mg PO QHS PRN PRN 07/22/19 Levothyroxine [Synthroid] 75 mcg PO DAILY 07/22/19 Olanzapine 20 mg PO DAILY 07/22/19 Omeprazole 40 mg PO DAILY 07/22/19 Potassium Chloride [K-Dur] 10 meq PO BID 07/22/19 Pramipexole Di-HCl [Mirapex] 0.125 mg PO QHS 07/22/19 Psyllium Husk [Fiber] 4 cap PO DAILY 07/22/19 Rosuvastatin Calcium 40 mg PO QHS 07/22/19 Sodium Bicarbonate 2 tab PO BID 07/22/19 Venlafaxine HCl [Venlafaxine HCl ER] 150 mg PO DAILY 07/22/19 traZODone [Desyrel] 25 mg PO QHS 07/22/19 Aspirin [Aspir 81] 81 mg PO QHS 07/24/19 Cholecalciferol (Vitamin D3) [Vitamin D3] 5,000 unit PO DAILY 07/24/19 Metoprolol Tartrate 25 mg PO BID 07/24/19 Mv-Min/FA/Vit K/Lycop/Lut/Zeax [Ocuvite Eye Plus Multi Tablet] 1 tab PO TID 07/24/19 Acetaminophen [Tylenol Tablet] 650 mg PO Q6H PRN PRN tab 07/31/19 Cefdinir [Omnicef [equiv]] 300 mg PO Q12 7 Days #14 cap 07/31/19 Glucerna Shake 120 ml PO 4X/DAY #0 liquid 07/31/19 Heparin Injection (Vial) [Heparin Na] 5,000 unit SUBCUT Q12 vial 07/31/19 Insulin Lispro [Humalog KwikPen] See Protocol SUBCUT ACHS insuln.pen 07/31/19 Nicotine [Nicoderm Cq] 7 mg TRANSDERM. DAILY patch 07/31/19 Oxycodone [Oxyir] 5 mg PO Q4H PRN PRN 3 Days #12 tab 07/31/19 Following Prescrptions Were Given to Patient: Cefdinir [Omnicef [equiv]] 300 mg PO Q12 7 Days #14 cap Oxycodone [Oxyir] 5 mg PO Q4H PRN PRN 3 Days #12 tab PRN Reason: Pain Score 4-5/10 Prescription Printed Primary Care Physician: Zaira Donaldson DO [Primary Care Provider] - Please follow up with your Primary Care Physician in: within 2 weeks Disposition: Senior Living facility Minutes spent on discharge:: 45 Patient Condition:: Stable Medical Necessity - Tobacco Use Smoking Status: Current every day smoker Tobacco Use: Cigarettes, Vapor Meaningful Use Info Meaningful Use Diagnoses (Choose all that apply): None applicable Code Visit Inpatient E&M: 96701 Disch Hosp
[2019-07-31] MEDS: oxyCODONE 5 MG Tablet PO (10:57)
--- NOTE | 2019-07-31 13:14 | CASEMGMT ---
Social Work Note FRANKY received message from Daisha in TCU stating pre-cert has been obtained and pt can discharge to TCU today. Physician updated. FRANKY placed a call to pt's Mark and updated him that pre-cert has been obtained and pt will discharge to TCU today. Mark states understanding. Plan: TCU today Kayleen Holliday [employer], APPRENTICE ELECTRICIAN
[2019-07-31 13:21] VITALS: BP 96/44; PULSE 72; RESP 16; TEMP 36.9; O2SAT 95
[2019-07-31 13:50] LABS: Bedside Glucose 121 mg/dL (70-110)
--- NOTE | 2019-07-31 14:13 | NURSING ---
Report called to Cinthya in TCU.
[2019-07-31 14:15] LABS: Pathologist Review Reviewed
== END 2019-07-31 14:18 | disposition skilled nursing facility (03) | DRG 673 ==
LOC: ED 17:05 → MS3 07-25 06:18
PROVIDERS: Anesthesiology; Internal Medicine; Surgery; Admitting Provider Family Medicine; Emergency Provider Emergency Medicine; PCP Internal Medicine; Visit Provider Internal Medicine
PROC: 0KBN0ZZ Excision of Right Hip Muscle, Open Approach (ICD-10-PCS; principal; 2019-07-25 13:15)
DX: N17.9 Acute kidney failure, unspecified (principal); L89.154 Pressure ulcer of sacral region, stage 4; L89.314 Pressure ulcer of right buttock, stage 4; I96 Gangrene, not elsewhere classified; B96.89 Other specified bacterial agents as the cause of diseases classified elsewhere; E78.5 Hyperlipidemia, unspecified; E11.22 Type 2 diabetes mellitus with diabetic chronic kidney disease; N18.3 Chronic kidney disease, stage 3 (moderate); R26.9 Unspecified abnormalities of gait and mobility; G25.81 Restless legs syndrome; F41.9 Anxiety disorder, unspecified; E03.9 Hypothyroidism, unspecified; I12.9 Hypertensive chronic kidney disease with stage 1 through stage 4 chronic kidney disease, or unspecified chronic kidney disease; K21.9 Gastro-esophageal reflux disease without esophagitis; B96.20 Unspecified Escherichia coli [E. coli] as the cause of diseases classified elsewhere; M54.5 Low back pain; D53.9 Nutritional anemia, unspecified; E66.9 Obesity, unspecified; F31.9 Bipolar disorder, unspecified; F25.9 Schizoaffective disorder, unspecified; F17.290 Nicotine dependence, other tobacco product, uncomplicated; Z68.36 Body mass index [BMI] 36.0-36.9, adult; Z79.84 Long term (current) use of oral hypoglycemic drugs; Z98.1 Arthrodesis status; W10.9XXA Fall (on) (from) unspecified stairs and steps, initial encounter; Y92.008 Other place in unspecified non-institutional (private) residence as the place of occurrence of the external cause
CPT/HCPCS: 36415; 36569; 71045; 72100; 72192; 76770; 80048; 80053; 80069; 81001; 82570; 82607; 82728; 82746; 82962; 83036; 83540; 83550; 83735; 84134; 84300; 84484; 85025; 85027; 85610; 85652; 85730; 86140; 87040; 87070; 87075; 87077; 87102; 87176; 87186; 87205; 87206; 87640; 88304; 88305; 88311; 88312; 93005; 97110; 97116; 97162; 97166; 97530; 99251; 99285; J2185; J7030; J7040; J7050; A4216; G0463; J2405

== ENCOUNTER 2019-07-31 14:25 | Inpatient (IN) | payer MEDICARE, OTHER, SELFPAY ==
[2019-07-25 11:18] VITALS: BMI 36.6
[2019-07-31 14:48] VITALS: BP 119/80; PULSE 83; PULSE 84; RESP 16; TEMP 36.5; O2SAT 100; O2SAT 94; BMI 38.9
[2019-07-31] MEDS: oxyCODONE 5 MG Tablet PO ×2 (16:33→22:44)
[2019-07-31 17:05] LABS: Bedside Glucose 93 mg/dL (70-110)
[2019-07-31] MEDS: Glucerna Shake 120 ML LIQUID PO ×2 (17:59→21:17)
[2019-07-31] MEDS: Multivitamin (Healthy Eyes) Capsule 1 CAP PO (18:03)
[2019-07-31] MEDS: Gabapentin 600 MG Tablet PO ×2 (18:03→21:22)
[2019-07-31] MEDS: busPIRone 5 MG Tablet 10 MG PO (18:04)
[2019-07-31] MEDS: Cefdinir 300 MG Capsule PO (18:05)
[2019-07-31] MEDS: Furosemide 40 MG Tablet PO (18:05)
[2019-07-31] MEDS: Sodium Bicarbonate 650 MG Tablet 1300 MG PO (18:05)
[2019-07-31 18:06] VITALS: BP 119/80; PULSE 84
[2019-07-31] MEDS: Metoprolol Tartrate 25 MG Tablet PO (18:06)
[2019-07-31] MEDS: Heparin Injection (Vial) 5,000 UNIT/ML VIAL 5000 UNIT SC (18:10)
[2019-07-31] MEDS: Nystatin Powder 15gm Bottle 1 APPLIC TOPICAL (18:57)
[2019-07-31] MEDS: Pramipexole Di-HCl 0.125 MG Tablet PO (21:19)
[2019-07-31] MEDS: traZODone 50 MG Tablet 25 MG PO (21:20)
[2019-07-31] MEDS: Aspirin E.C. 81 MG Tablet PO (21:21)
[2019-07-31] MEDS: Benztropine 2 MG Tablet 0.5 MG PO (21:22)
[2019-07-31] MEDS: Atorvastatin Calcium 80 MG Tablet PO (21:22)
[2019-07-31 21:25] LABS: Bedside Glucose 117 mg/dL (70-110)
--- NOTE | 2019-07-31 22:30 | PCM.HP.STD ---
Problem List (1) Fall Status: Acute (2) Chronic kidney disease Status: Chronic (3) Gout Status: Chronic (4) Edema Status: Chronic (5) Benzodiazepine dependence Status: Chronic (6) Neuropathic pain Status: Chronic (7) Hypokalemia Status: Chronic (8) Insomnia Status: Chronic (9) Body mass index (bmi) 39.0-39.9, adult Status: Chronic (10) Bipolar disorder Status: Chronic (11) Hypothyroidism Status: Chronic (12) Pressure ulcer of sacral region, stage 4 Status: Chronic Comment: infected necrotizing right buttock and right sacral pressure sore, Stage IV (13) Pressure ulcer of right buttock, stage 4 Status: Chronic Comment: infected necrotizing right buttock and right sacral pressure sore, Stage IV (14) Necrotizing soft tissue infection Status: Acute (15) Hypertension Status: Chronic Qualifiers: (16) Hyperlipidemia Status: Chronic Qualifiers: (17) ILIANA (acute kidney injury) Status: Acute (18) Diabetes mellitus, type II Status: Chronic Qualifiers: (19) Anxiety and depression Status: Chronic (20) RLS (restless legs syndrome) Status: Chronic (21) Intractable low back pain Status: Chronic History of Present Illness Date of Admission: 07/31/19 Chief Complaint: Here for rehabilitation, strengthening, prior to discharge home with . The patient is a 63 year old Female with below past medical history presented to [facility] Emergency Department 07/24/2019 with fall, generalized weakness. 07/24/2019 EKG normal sinus rhythm, inferior-posterior infarct, age undetermined, cannot be excluded. 07/24/2019 X-ray lumbar spine, L3-S1 surgical fusion. 07/24/2019 Chest X-ray cardiomegaly, minimal bibasilar atelectasis. 07/24/2019 CT pelvis right buttock infected, negative for osteomyelitis. 2 Falls in 2 days, legs gave out. Right buttock pressure ulcer, treated at wound center. Seeing Dr. Kaiser 07/25/2019. Finished Augmentin, Started on Clindamycin. Recent discharge from rehab 2 weeks prior. Home Oxygen. Hemoglobin 9.1, Cr 2.7, Troponin negative, UA negative. Rocephin IV, IV fluids given. 07/24/2019 Admit to Hospital. Zanaflex, Steroids, PT/OT for intractable low back pain. IV Fluids for acute kidney injury. Rocephin IV, Dr. Kaiser, for infected right buttock pressure ulcer. 07/25/2019 Renal ultrasound normal. 07/25/2019 Dr. Kaiser performed excision infected necrotizing right buttock, sacral pressure ulcer, stage IV, with partial ostectomy for osteomyelitis. Wound VAC applied. Meropenem IV for infected right buttock pressure ulcer. Acute kidney injury improved with IV Fluids. PICC line to right upper extremity. Indwelling Ahmadi Catheter to prevent contamination of pressure ulcer. 07/31/2019 Admit to TCU with debility, here for rehabilitation, strengthening, wound care, prior to discharge home with . Past Medical History Past Medical History (Chronic Problems): Chronic Problems Chronic kidney disease (Chronic) Gout (Chronic) Edema (Chronic) Benzodiazepine dependence (Chronic) Neuropathic pain (Chronic) Hypokalemia (Chronic) Insomnia (Chronic) Body mass index (bmi) 39.0-39.9, adult (Chronic) Bipolar disorder (Chronic) Hypothyroidism (Chronic) Pressure ulcer of sacral region, stage 4 (Chronic) infected necrotizing right buttock and right sacral pressure sore, Stage IV Pressure ulcer of right buttock, stage 4 (Chronic) infected necrotizing right buttock and right sacral pressure sore, Stage IV Blood glucose elevated (Chronic) Hypertension (Chronic) Hyperlipidemia (Chronic) Chronic back pain (Chronic) Impaired mobility (Chronic) Severe obesity (BMI 35.0-35.9 with comorbidity) (Chronic) CKD (chronic kidney disease), stage III (Chronic) Diabetes mellitus, type II (Chronic) Anxiety and depression (Chronic) RLS (restless legs syndrome) (Chronic) Nicotine vapor product user (Chronic) Former tobacco use (Chronic) Macrocytic anemia (Chronic) Intractable low back pain (Chronic) Allergies Iodinated Contrast Media [CONTRASTS] Allergy (Verified 07/24/19 16:36) Hives morphine Adverse Reaction (Verified 07/24/19 16:36) Nausea Home Medications: Ambulatory Orders Medication Instructions Recorded Allopurinol 300 mg PO DAILY 07/22/19 Benztropine Mesylate 0.5 mg PO QHS 07/22/19 Buspirone HCl 10 mg PO BID 07/22/19 Cyanocobalamin (Vitamin B-12) 1,000 mcg PO DAILY 07/22/19 [Vitamin B-12] Empagliflozin [Jardiance] 10 mg PO DAILY 07/22/19 Furosemide 40 mg PO BID 07/22/19 Gabapentin [Neurontin] 600 mg PO 4X/DAY 07/22/19 Hydroxyzine HCl 50 mg PO QHS PRN PRN 07/22/19 Levothyroxine [Synthroid] 75 mcg PO DAILY 07/22/19 Olanzapine 20 mg PO DAILY 07/22/19 Omeprazole 40 mg PO DAILY 07/22/19 Potassium Chloride [K-Dur] 10 meq PO BID 07/22/19 Pramipexole Di-HCl [Mirapex] 0.125 mg PO QHS 07/22/19 Psyllium Husk [Fiber] 4 cap PO DAILY 07/22/19 Rosuvastatin Calcium 40 mg PO QHS 07/22/19 Sodium Bicarbonate 2 tab PO BID 07/22/19 Venlafaxine HCl [Venlafaxine HCl 150 mg PO DAILY 07/22/19 ER] traZODone [Desyrel] 25 mg PO QHS 07/22/19 Aspirin [Aspir 81] 81 mg PO QHS 07/24/19 Cholecalciferol (Vitamin D3) 5,000 unit PO DAILY 07/24/19 [Vitamin D3] Metoprolol Tartrate 25 mg PO BID 07/24/19 Mv-Min/FA/Vit K/Lycop/Lut/Zeax 1 tab PO TID 07/24/19 [Ocuvite Eye Plus Multi Tablet] Acetaminophen [Tylenol Tablet] 650 mg PO Q6H PRN PRN tab 07/31/19 Cefdinir [Omnicef [equiv]] 300 mg PO Q12 07/31/19 Glucerna Shake 120 ml PO 4X/DAY 07/31/19 Heparin Injection (Vial) [Heparin 5,000 unit SUBCUT Q12 07/31/19 Na] Insulin Lispro [Humalog KwikPen] See Protocol SUBCUT ACHS 07/31/19 Nicotine [Nicoderm Cq] 7 mg TRANSDERM. DAILY 07/31/19 Oxycodone [Oxyir] 5 mg PO Q4H PRN PRN 3 Days #12 tab 07/31/19 Surgical History: appendectomy, cholecystectomy, hysterectomy, - - Lumbar spinal surgery with hardware, at least 4 previous back surgeries. 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 Paternal History Items: - - Patient denies any market maternal or paternal family history including heart disease, diabetes, cancer. Review of Systems Constitutional: Denies: Chills, Fever, Weight Change HEENT: Denies: Head Aches, Sinus Congestion, Sinus Drainage Cardiovascular: Denies: Chest Pain, Palpitations Respiratory: Denies: Cough, Shortness of breath at rest, Sputum production Gastrointestinal: Denies: Abdominal Pain, Nausea, Vomiting Genitourinary: Denies: Dysuria Musculoskeletal: Denies: Joint Pain, Joint Tenderness Skin: Denies: Rash, Wounds Neurological: Denies: Numbness, Tingling, Focal weakness Psychiatric: Denies: Anxiety, Depression, Homicidal Ideations, Suicidal Ideations Hematologic/ Lymphatic: Denies: Easy Bruising, Easy Bleeding VTE Information - Inpt Only VTE Present on Admission: No VTE Mechan Device Prophylaxis: Knee High BIMAL Hose VTE Pharm Prophylaxis ordered?: Yes Patient Problems: Active and Suspected Problems Fall (Acute) - Physical Exam Vitals/I&O's: Vital Signs Temp Pulse Resp BP Pulse Ox 97.7 F L 84 16 119/80 94 07/31/19 14:48 07/31/19 18:06 07/31/19 14:48 07/31/19 18:06 07/31/19 14:48 Oxygen Flow Rate (L/min) 3 Oxygen Delivery Method Nasal Cannula Weight: 99.8 kg Body Mass Index (BMI) 38.9 Intake and Output for Last 24 Hours 07/29/19 07/30/19 07/31/19 23:59 23:59 23:59 Intake Total 1040 / 1040 Output Total 300 / 300 Balance 740 / 740 General: Alert, Oriented x3, Cooperative HEENT: Atraumatic, PERRLA, EOMI, Normocephalic Neck: Supple, No JVD, Negative Carotid Bruits Lungs: Clear to auscultation, Normal air movement Cardiovascular: Regular rate, No murmurs Abdomen: Bowel Sounds Present, Soft, Non Tender, - - Indwelling Ahmadi Catheter. Extremities: No edema, Capillary Refill Less than 3 Seconds, - - PICC right upper extremity. Skin: No rashes, Ulcer/ Wound - Right buttock/right sacral pressure ulcer, wound VAC dressing in place. Musculoskeletal: No Tenderness to Palpation of Joints or Extremities Neurological: Cranial nerves II-XII grossly intact Psych/Mental Status: Normal Affect, Appropriate Laboratory Results 07/31/19 16:53: POC Glucose 93 07/31/19 21:11: POC Glucose 117 H Current Medications Acetaminophen (Tylenol) 650 mg PO Q6H PRN PRN PRN Reason: Pain Score 1-3/Temp > 100.7 F [facility] Aspirin (Ecotrin) 81 mg PO QHS [facility] Last Admin: 07/31/19 21:21 Dose: 81 mg Documented by: Atorvastatin Calcium (Lipitor) 80 mg PO QHS [facility] Last Admin: 07/31/19 21:22 Dose: 80 mg Documented by: Benztropine Mesylate (Cogentin) 0.5 mg PO QHS [facility] Last Admin: 07/31/19 21:22 Dose: 0.5 mg Documented by: Buspirone HCl (Buspar) 10 mg PO BID [facility] Last Admin: 07/31/19 18:04 Dose: 10 mg Documented by: Cefdinir (Omnicef [Equiv]) 300 mg PO Q12 [facility] Stop: 08/07/19 18:00 Last Admin: 07/31/19 18:05 Dose: 300 mg Documented by: Cyanocobalamin (Vitamin B12) 1,000 mcg PO DAILY [facility] Empagliflozin (Jardiance) 10 mg PO DAILY [facility] Furosemide (Lasix) 40 mg PO BID [facility] Last Admin: 07/31/19 18:05 Dose: 40 mg Documented by: Gabapentin (Neurontin) 600 mg PO 4X/DAY [facility] Last Admin: 07/31/19 21:22 Dose: 600 mg Documented by: Heparin Sodium (Beef Lung) () 50 units IV UD PRN PRN Reason: PICC Line Heparin Flush Heparin Sodium (Porcine) (Heparin Na) 5,000 unit SC Q12 [facility] Last Admin: 07/31/19 18:10 Dose: 5,000 unit Documented by: Hydroxyzine Pamoate (Vistaril Pamoate Capsule) 50 mg PO QHS PRN PRN PRN Reason: ANXIETY Insulin Human Lispro (Humalog Kwikpen (Bkc)) 0 unit SC ACHS [facility]; Protocol Last Admin: 07/31/19 21:32 Dose: Not Given Documented by: Levothyroxine Sodium (Synthroid) 75 mcg PO DAILY [facility] Metoprolol Tartrate (Lopressor (Beta Armani)) 25 mg PO BID [facility] Last Admin: 07/31/19 18:06 Dose: 25 mg Documented by: Multivitamins/Minerals (Healthy Eyes) 1 capsule PO BID [facility] Last Admin: 07/31/19 18:03 Dose: 1 capsule Documented by: Nicotine (Nicoderm Cq (Pbkc)) 7 mg TRANSDERM. DAILY [facility] Nutritional Formula ([place] Flavor) [facility] Last Admin: 07/31/19 18:01 Dose: 1 packet Documented by: Nutritional Formula (Lactose Free) (Glucerna Shake) 120 ml PO 4X/DAY [facility] Last Admin: 07/31/19 21:17 Dose: 120 ml Documented by: Nystatin (Mycostatin Powder) 1 applic TOPICAL BID [facility]; Protocol Last Admin: 07/31/19 18:57 Dose: 1 applic Documented by: Olanzapine (Zyprexa) 20 mg PO DAILY [facility] Oxycodone HCl (Oxyir) 5 mg PO Q4H PRN PRN PRN Reason: Pain Score 4-5/10 Last Admin: 07/31/19 16:33 Dose: 5 mg Documented by: Pantoprazole Sodium (Protonix) 40 mg PO DAILY [facility] Potassium Chloride (K-Dur) 10 meq PO BID [facility] Last Admin: 07/31/19 18:04 Dose: 10 meq Documented by: Pramipexole Dihydrochloride (Mirapex) 0.125 mg PO QHS [facility] Last Admin: 07/31/19 21:19 Dose: 0.125 mg Documented by: Sodium Bicarbonate (Sodium Bicarbonate) 1,300 mg PO BID [facility] Last Admin: 07/31/19 18:05 Dose: 1,300 mg Documented by: Sodium Chloride () 10 - 40 ml IV UD PRN PRN Reason: Open End PICC Flush Sodium Chloride (0.9% Nacl (Sterile) Posiflush) 10 - 40 ml IV UD PRN PRN Reason: Port access or dressing change Trazodone HCl (Desyrel) 25 mg PO QHS [facility] Last Admin: 07/31/19 21:20 Dose: 25 mg Documented by: Tuberculin PPD (Tubersol, Aplisol, Ppd) 5 tu ID [id number] ONE Stop: 08/01/19 10:01 Tuberculin PPD (Tubersol, Aplisol, Ppd) 5 tu ID [id number] ONE Stop: 08/08/19 10:01 Venlafaxine HCl (Effexor Xr) 150 mg PO DAILY [facility] Assessment/Plan All Active Problems Fall (Acute) Necrotizing soft tissue infection (Acute) Pressure ulcer, buttock, right, unstageable (Acute) Decreased renal function (Acute) ILIANA (acute kidney injury) (Acute) 63 year old female with below past medical history hospitalized for infected right buttock pressure ulcer, underwent incision and drainage 07/25/[address] Kaiser, complicated by acute on chronic kidney injury, intractable low back pain, admitted to TCU with debility, here for rehabilitation, strengthening, wound care, prior to discharge home with . Debility - PT/OT. Pain - Tylenol 1000MG Q6H PRN pain (1-3), Tramadol 50MG Q6H PRN pain (4-5), Oxycodone 10MG Q4H PRN pain (6-10). Bowel - Miralax 17GM daily, Senna/colace 2 tablets BID, Dulcolax 10MG daily PRN. Adult immunization - Administer Prevnar 13, Pneumovax 23, Fluzone as appropriate. DVT prophylaxis - Lovenox 40MG SC daily. Gout - Allopurinol 300MG daily. CV prophylaxis - Aspirin 81MG daily. Hyperlipidemia - Atorvastatin 80MG QHS. Extrapyramidal side effects - Benztropine 0.5MG QHS. Anxiety - Buspar 10MG BID, Hydroxyzine 50MG QHS PRN. Infected right buttock pressure ulcer - Cefdinir 300MG Q12H thru 08/07/19, Dr. Kaiser following, Wound nurse following, Wound VAC. Vitamin B12 deficiency - B12 1000MCG daily. Diabetes Mellitus II - Jardiance 10MG daily, Edema - Lasix 40MG BID. Neuropathic pain - Gabapentin 600MG 4x/day. Nutrition - Glucerna 120ML 4x/day, [place] 1 packet BID. Hypothyroidism - Levothyroxine 75MCG daily. Hypertension - Metoprolol 25MG BID. Macular degeneration - Healthy Eyes 1 capsule twice daily. Tobacco dependence - Nicotine patch 7MG TD daily. Tinea Corporis - Nystatin powder BID. Bipolar Disorder - Zyprexa 20MG daily, stable chronic halfway use, GDR not recommended. GERD - Pantoprazole 40MG daily. Hypokalemia - K-Dur 10MEQ BID. Restless Leg Syndrome - Mirapex 0.125MG QHS. Metabolic acidosis - Sodium Bicarbonate 1300MG BID. Insomnia - Trazodone 25MG QHS. Depression - Venlafaxine 150MG daily.
[2019-07-31] MEDS: 0.9% Saline Lock 10 ML Syringe IV (22:45)
[2019-08-01] MEDS: Cefdinir 300 MG Capsule PO ×2 (04:45→18:14)
[2019-08-01] MEDS: Polyethylene Glycol 3350 17 GM PACKET PO (04:45)
[2019-08-01] MEDS: busPIRone 5 MG Tablet 10 MG PO ×2 (04:45→18:15)
[2019-08-01] MEDS: Venlafaxine XR 150 MG Capsule PO (04:45)
[2019-08-01] MEDS: Furosemide 40 MG Tablet PO ×2 (04:45→18:15)
[2019-08-01] MEDS: Pantoprazole Sodium 40 MG Tablet PO (04:45)
[2019-08-01] MEDS: Levothyroxine 75 MCG Tablet PO (04:45)
[2019-08-01] MEDS: OLANZapine 10 MG Tablet 20 MG PO (04:46)
[2019-08-01] MEDS: Sodium Bicarbonate 650 MG Tablet 1300 MG PO ×2 (04:46→18:14)
[2019-08-01] MEDS: Multivitamin (Healthy Eyes) Capsule 1 CAP PO ×2 (04:46→18:15)
[2019-08-01] MEDS: Cyanocobalamin 500 MCG Tablet 1000 MCG PO (04:46)
[2019-08-01] MEDS: Empagliflozin 10 MG Tablet PO (04:46)
[2019-08-01] MEDS: Senna/Docusate Sodium 1 Tablet 2 TABLET PO ×2 (04:47→18:14)
[2019-08-01] MEDS: Gabapentin 600 MG Tablet PO ×4 (04:49→22:00)
[2019-08-01 04:52] VITALS: BP 121/45; PULSE 104
[2019-08-01] MEDS: Glucerna Shake 120 ML LIQUID PO ×4 (04:52→22:00)
[2019-08-01] MEDS: Metoprolol Tartrate 25 MG Tablet PO ×2 (04:52→18:15)
[2019-08-01] MEDS: Enoxaparin 40 MG/0.4 ML Syringe SC (04:55)
[2019-08-01] MEDS: Nystatin Powder 15gm Bottle 1 APPLIC TOPICAL ×2 (04:58→18:31)
[2019-08-01 05:29] LABS: Absolute Lymphocyte Count 5.26 X10^3/uL (0.83-4.51); Absolute Neutrophil Count 6.3 X10^3/uL (2.0-7.7); Basophil# 0.06 X10^3/uL; Basophil% 0.4 % (0-1); Eosinophil# 0.46 X10^3/uL; Eosinophils% 3.3 % (0-5); Hematocrit 30.4 % (37-47); Hemoglobin 9.4 g/dL (12.0-15.0); Lymphocyte # 5.26 X10^3/ul (4.0); Lymphocyte % 37.7 % (19-41); Mean Corp Hgb Conc 30.9 g/dL (32-36); Mean Corpuscular Hgb 31.5 pg (27.0-32.0); Monocyte# 1.54 X10^3/uL; NRBC Flagged by Analyzer 0.2 % (0-5); Neutrophil # 6.29 X10^3/uL (2.7-7.7); Neutrophil % 45.2 % (47-70); POSITIVE DIFFERENTIAL YES; Platelet Count 325 K/mm3 (150-450); RBC Distribution Width CV 15.4 % (11.6-14.6); Red Blood Count 2.98 M/mm3 (4.2-5.4)
[2019-08-01 05:46] LABS: Differential Indicated SCAN CRITERIA MET
[2019-08-01 05:54] LABS: Anion Gap 6 (5-15); BUN 12 mg/dL (7-18); BUN/Creat Ratio 11.2 RATIO (10-20); Calcium,Total 8.5 mg/dL (8.5-10.1); Chloride 107 mmol/L (98-107); Creatinine, Serum 1.07 mg/dL (0.55-1.02); EST Glomerular Filtration Rate 55 mL/min (>60); Est Glom Filt Rate - Afr Amer 66 mL/min (>60); Estimated Creatinine Clearance 44.52 ml/min; Glucose 103 mg/dL (74-106); Potassium 3.4 mmol/L (3.5-5.1); Sodium Level 143 mmol/L (136-145)
[2019-08-01 06:04] LABS: Differential Comment SCANNED; Macrocytosis 2+
[2019-08-01 06:25] LABS: Bedside Glucose 112 mg/dL (70-110)
[2019-08-01] MEDS: oxyCODONE 5 MG Tablet 10 MG PO ×2 (06:48→13:36)
[2019-08-01] MEDS: Allopurinol 300 MG Tablet PO (08:50)
--- NOTE | 2019-08-01 09:00 | NURSING ---
VERIFIED NICODERM PATCH TO LEFT DELT.
--- NOTE | 2019-08-01 10:15 | PCM.PN.RX ---
<NinaRayrayCecelia M - Last Filed: 08/01/19 10:15> Progress Note - Pharmacy Subjective: TCU ADMISSION Objective: Allergies Iodinated Contrast Media [CONTRASTS] Allergy (Verified 07/24/19 16:36) Hives morphine Adverse Reaction (Verified 07/24/19 16:36) Nausea Current Medications Generic Name Dose Route Start Last Admin Trade Name Freq PRN Reason Stop Dose Admin Acetaminophen 1,000 mg 07/31/19 23:03 Tylenol PO Q6H PRN PRN Pain Score 1-3/10 Allopurinol 300 mg 08/01/19 08:00 08/01/19 08:50 Zyloprim PO 300 mg DAILYCM [facility]ONG Administration Aspirin 81 mg 07/31/19 22:00 07/31/19 21:21 Ecotrin PO 81 mg QHS [facility] Administration Atorvastatin Calcium 80 mg 07/31/19 22:00 07/31/19 21:22 Lipitor PO 80 mg QHS [facility] Administration Benztropine Mesylate 0.5 mg 07/31/19 22:00 07/31/19 21:22 Cogentin PO 0.5 mg QHS [facility] Administration Bisacodyl 10 mg 07/31/19 23:02 Dulcolax PO DAILY PRN Constipation Buspirone HCl 10 mg 07/31/19 18:00 08/01/19 04:45 Buspar PO 10 mg BID [facility] Administration Cefdinir 300 mg 07/31/19 18:00 08/01/19 04:45 Omnicef [Equiv] PO 08/07/19 18:00 300 mg Q12 [facility] Administration Cyanocobalamin 1,000 mcg 08/01/19 06:00 08/01/19 04:46 Vitamin B12 PO 1,000 mcg DAILY [facility] Administration Empagliflozin 10 mg 08/01/19 06:00 08/01/19 04:46 Jardiance PO 10 mg DAILY [facility] Administration Enoxaparin Sodium 40 mg 08/01/19 06:00 08/01/19 04:55 Lovenox SC 40 mg DAILY@0600 [facility] Administration Furosemide 40 mg 07/31/19 18:00 08/01/19 04:45 Lasix PO 40 mg BID [facility] Administration Gabapentin 600 mg 07/31/19 17:00 08/01/19 04:49 Neurontin PO 600 mg 4X/DAY [facility] Administration Heparin Sodium (Beef Lung) 50 units 07/31/19 15:40 IV UD PRN PICC Line Heparin Flush Hydroxyzine Pamoate 50 mg 07/31/19 16:17 Vistaril Pamoate Capsule PO QHS PRN PRN ANXIETY Levothyroxine Sodium 75 mcg 08/01/19 06:00 08/01/19 04:45 Synthroid PO 75 mcg DAILY [facility] Administration Metoprolol Tartrate 25 mg 07/31/19 18:00 08/01/19 04:52 Lopressor (Beta Armani) PO 25 mg BID [facility] Administration Multivitamins/Minerals 1 capsule 07/31/19 18:00 08/01/19 04:46 Healthy Eyes PO 1 capsule BID [facility] Administration Nicotine 7 mg 08/01/19 06:00 08/01/19 05:00 Nicoderm Cq (Pbkc) TRANSDERM. 7 mg DAILY [facility] Administration Nutritional Formula 1 packet 07/31/19 17:00 08/01/19 08:50 [place] Flavor PO 1 packet BIDCM [facility] Administration Nutritional Formula (Lactose Free) 120 ml 07/31/19 17:00 08/01/19 04:52 Glucerna Shake PO 120 ml 4X/DAY [facility] Administration Nystatin 1 applic 07/31/19 18:00 08/01/19 04:58 Mycostatin Powder TOPICAL 1 applic BID [facility]ONG Administration Protocol Olanzapine 20 mg 08/01/19 06:00 08/01/19 04:46 Zyprexa PO 20 mg DAILY [facility] Administration Oxycodone HCl 10 mg 07/31/19 23:03 08/01/19 06:48 Oxyir PO 10 mg Q4H PRN PRN Administration Pain Score 6-10/10 Pantoprazole Sodium 40 mg 08/01/19 06:00 08/01/19 04:45 Protonix PO 40 mg DAILY [facility] Administration Polyethylene Glycol 17 gm 08/01/19 06:00 08/01/19 04:45 Miralax PO 17 gm DAILY [facility] Administration Polysaccharide Iron Complex 150 mg 08/02/19 08:00 Ferrex 150 PO DAILYCM [facility] Potassium Chloride 20 meq 08/01/19 17:00 K-Dur PO BIDCM [facility] Pramipexole Dihydrochloride 0.125 mg 07/31/19 22:00 07/31/19 21:19 Mirapex PO 0.125 mg QHS [facility] Administration Senna/Docusate Sodium 2 tablet 08/01/19 06:00 08/01/19 04:47 Senokot-S, Melia-Colace PO 2 tablet BID [facility] Administration Sodium Bicarbonate 1,300 mg 07/31/19 18:00 08/01/19 04:46 Sodium Bicarbonate PO 1,300 mg BID [facility]ONG Administration Sodium Chloride 10 - 40 ml 07/31/19 15:40 07/31/19 22:45 IV 20 ml UD PRN Administration Open End PICC Flush Sodium Chloride 10 - 40 ml 07/31/19 15:40 0.9% Nacl (Sterile) Posiflush IV UD PRN Port access or dressing change Tramadol HCl 50 mg 07/31/19 23:02 Ultram PO Q6H PRN PRN Pain Score 4-5/10 Trazodone HCl 100 mg 08/01/19 22:00 Desyrel PO QHS [facility] Tuberculin PPD 5 tu 08/08/19 10:00 Tubersol, Aplisol, Ppd ID 08/08/19 10:01 X1 ONE Venlafaxine HCl 150 mg 08/01/19 06:00 08/01/19 04:45 Effexor Xr PO 150 mg DAILY [facility] Administration Problem List Fall (Acute) Chronic kidney disease (Chronic) Gout (Chronic) Edema (Chronic) Benzodiazepine dependence (Chronic) Neuropathic pain (Chronic) Hypokalemia (Chronic) Insomnia (Chronic) Body mass index (bmi) 39.0-39.9, adult (Chronic) Bipolar disorder (Chronic) Hypothyroidism (Chronic) Vital Signs Temp Pulse Resp BP Pulse Ox 97.7 F L 104 H 16 121/45 H 94 07/31/19 14:48 08/01/19 04:52 07/31/19 14:48 08/01/19 04:52 07/31/19 14:48 Oxygen Flow Rate (L/min) 4 Oxygen Delivery Method Nasal Cannula Weight: 99.8 kg Body Mass Index (BMI) 38.9 Sodium 143 mmol/L (136-145) 08/01/19 05:00 Potassium 3.4 mmol/L (3.5-5.1) L 08/01/19 05:00 Chloride 107 mmol/L (98-107) 08/01/19 05:00 Carbon Dioxide 30.0 mmol/L (21.0-32.0) 08/01/19 05:00 Anion Gap 6 (5-15) 08/01/19 05:00 BUN 12 mg/dL (7-18) 08/01/19 05:00 Creatinine 1.07 mg/dL (0.55-1.02) H 08/01/19 05:00 Est GFR (MDRD) Af Amer 66 mL/min (>60) 08/01/19 05:00 Est GFR (MDRD) Non-Af 55 mL/min (>60) L 08/01/19 05:00 BUN/Creatinine Ratio 11.2 RATIO (10-20) 08/01/19 05:00 Glucose 103 mg/dL (74-106) 08/01/19 05:00 Assessment/Plan: 1. Pain: Tylenol 1000mg PO Q6h PRN (Pain 1-3/10), Tramadol 50mg PO Q6h PRN (Pain 4-5/10), OxyIR 10mg PO Q4h PRN (Pain 6-10/10). Please continue to monitor for increased/decreased pain, medication effectiveness, PRN usage 2. DVT Prophylaxis: Lovenox 40mg SC Daily. Please continue to monitor renal function, S/S bleeding/bruising 3. Gout: Allopurinol 300mg PO Daily. Please continue to monitor for improvement in gout symptoms, flare-ups 4. Hypertension/Cardiovascular: Aspirin 81mg PO Daily, Lopressor 25mg PO BID. Please continue to monitor for S/S bleeding/bruising, HR, BP 5. Hyperlipidemia: Lipitor 80mg PO QHS. Please continue to monitor lipid panel at least annually or sooner if clinically indicated 6. Infected Pressure ulcer: Cefdinir 300mg PO Q12h through 08/07/19. Please continue to monitor for infection resolution, recurrent infection 7. Diabetes Type II: Jardiance 10mg PO Daily. Please continue to monitor blood glucose, S/S hypoglycemia 8. Chronic Edema: Lasix 40mg PO BID, KCL 20mEq PO BID. Please continue to monitor fluid status, input/output, and electrolytes 9. GERD: Protonix 40mg PO Daily. Please continue to monitor for improvement in GERD symptoms 10. RLS: Mirapex 0.125mg PO QHS. Please continue to monitor for medication effectiveness 11. Metabolic Acidosis: Sodium Bicarbonate 1300mg PO BID. Please continue to monitor lab work to determine if dose is effective 12. Neuropathic Pain: Gabapentin 600mg PO 4x/day. Please continue to monitor renal function, medication effectiveness 13. Hypothyroid: Synthroid 75mcg PO Daily. Please continue to monitor for S/S hyper/hypothyroidism, Thyroid hormone panel at least annually or sooner if clinically indicated 14. Nicotine Abuse: Nicotine Patch 7mg Daily. Please continue to monitor for medication effectiveness. If patient exhibits nicotine withdrawal symptoms, can consider increasing patch strength 15. General Wellness: Vitamin B12 1,000 mcg PO Daily, Eye Multivitamin 1 cap PO BID, Ferrex 150mg PO Daily. Please continue to monitor labs as clinically indicated Psychotropic Medications: *16. Depression: Venlafaxine XR 150mg PO Daily. Please consider a GDR by 01/2020 if clinically indicated *17. Bipolar disorder: Zyprexa 20mg PO daily. Please consider a GDR by 01/2020 if clinically indicated *18. Anxiety: Buspirone 10mg PO BID, Vistaril 50mg PO QHS PRN. Please continue to monitor PRN usage. Please consider a GDR by 01/2020 if clinically indicated *19. Insomnia: Trazodone 100mg PO QHS. Please continue to monitor sleep pattern, medication effectiveness 20.EPS Symptoms: Cogentin 0.5mg PO QHS. Please continue to monitor for medication effectiveness. If caused by Psych medications, may consider stopping if symptoms improve with a GDR if clinically indicated Unnecessary Medications: None Bowel Regimen: Miralax 17g PO Daily, Senna/Docusate 2 tab PO BID, Bisacodyl 10mg PO Daily PRN. Please continue to monitor for increased/decreased constipation/diarrhea, PRN usage Date of Note:: 08/01/19 - Provider Comments Provider responsibility: Provider responsible to enter orders to implement recommendations <Darryl Bennett Chi - Last Filed: 08/01/19 13:30> Progress Note - Pharmacy Subjective: [] Objective: Allergies Iodinated Contrast Media [CONTRASTS] Allergy (Verified 07/24/19 16:36) Hives morphine Adverse Reaction (Verified 07/24/19 16:36) Nausea Current Medications Generic Name Dose Route Start Last Admin Trade Name Freq PRN Reason Stop Dose Admin Acetaminophen 1,000 mg 07/31/19 23:03 08/01/19 10:30 Tylenol PO 1,000 mg Q6H PRN PRN Administration Pain Score 1-3/10 Allopurinol 300 mg 08/01/19 08:00 08/01/19 08:50 Zyloprim PO 300 mg DAILYCM DUONG Administration Aspirin 81 mg 07/31/19 22:00 07/31/19 21:21 Ecotrin PO 81 mg QHS DUONG Administration Atorvastatin Calcium 80 mg 07/31/19 22:00 07/31/19 21:22 Lipitor PO 80 mg QHS DUONG Administration Benztropine Mesylate 0.5 mg 07/31/19 22:00 07/31/19 21:22 Cogentin PO 0.5 mg QHS [facility] Administration Bisacodyl 10 mg 07/31/19 23:02 Dulcolax PO DAILY PRN Constipation Buspirone HCl 10 mg 07/31/19 18:00 08/01/19 04:45 Buspar PO 10 mg BID [facility] Administration Cefdinir 300 mg 07/31/19 18:00 08/01/19 04:45 Omnicef [Equiv] PO 08/07/19 18:00 300 mg Q12 [facility] Administration Cyanocobalamin 1,000 mcg 08/01/19 06:00 08/01/19 04:46 Vitamin B12 PO 1,000 mcg DAILY [facility] Administration Empagliflozin 10 mg 08/01/19 06:00 08/01/19 04:46 Jardiance PO 10 mg DAILY [facility] Administration Enoxaparin Sodium 40 mg 08/01/19 06:00 08/01/19 04:55 Lovenox SC 40 mg DAILY@0600 [facility] Administration Furosemide 40 mg 07/31/19 18:00 08/01/19 04:45 Lasix PO 40 mg BID [facility] Administration Gabapentin 600 mg 07/31/19 17:00 08/01/19 11:35 Neurontin PO 600 mg 4X/DAY [facility] Administration Heparin Sodium (Beef Lung) 50 units 07/31/19 15:40 IV UD PRN PICC Line Heparin Flush Hydroxyzine Pamoate 50 mg 07/31/19 16:17 Vistaril Pamoate Capsule PO QHS PRN PRN ANXIETY Levothyroxine Sodium 75 mcg 08/01/19 06:00 08/01/19 04:45 Synthroid PO 75 mcg DAILY [facility] Administration Metoprolol Tartrate 25 mg 07/31/19 18:00 08/01/19 04:52 Lopressor (Beta Armani) PO 25 mg BID [facility] Administration Multivitamins/Minerals 1 capsule 07/31/19 18:00 08/01/19 04:46 Healthy Eyes PO 1 capsule BID [facility] Administration Nicotine 7 mg 08/01/19 06:00 08/01/19 05:00 Nicoderm Cq (Pbkc) TRANSDERM. 7 mg DAILY [facility] Administration Nutritional Formula 1 packet 07/31/19 17:00 08/01/19 08:50 [place] Flavor PO 1 packet BIDCM [facility] Administration Nutritional Formula (Lactose Free) 120 ml 07/31/19 17:00 08/01/19 11:34 Glucerna Shake PO 120 ml 4X/DAY [facility] Administration Nystatin 1 applic 07/31/19 18:00 08/01/19 04:58 Mycostatin Powder TOPICAL 1 applic BID [facility] Administration Protocol Olanzapine 20 mg 08/01/19 06:00 08/01/19 04:46 Zyprexa PO 20 mg DAILY [facility] Administration Oxycodone HCl 10 mg 07/31/19 23:03 08/01/19 06:48 Oxyir PO 10 mg Q4H PRN PRN Administration Pain Score 6-10/10 Pantoprazole Sodium 40 mg 08/01/19 06:00 08/01/19 04:45 Protonix PO 40 mg DAILY [facility] Administration Polyethylene Glycol 17 gm 08/01/19 06:00 08/01/19 04:45 Miralax PO 17 gm DAILY [facility] Administration Polysaccharide Iron Complex 150 mg 08/02/19 08:00 Ferrex 150 PO DAILYCM [facility] Potassium Chloride 20 meq 08/01/19 17:00 K-Dur PO BIDCM [facility] Pramipexole Dihydrochloride 0.125 mg 07/31/19 22:00 07/31/19 21:19 Mirapex PO 0.125 mg QHS [facility] Administration Senna/Docusate Sodium 2 tablet 08/01/19 06:00 08/01/19 04:47 Senokot-S, Melia-Colace PO 2 tablet BID [facility] Administration Sodium Bicarbonate 1,300 mg 07/31/19 18:00 08/01/19 04:46 Sodium Bicarbonate PO 1,300 mg BID [facility] Administration Sodium Chloride 10 - 40 ml 07/31/19 15:40 08/01/19 10:41 IV 10 ml UD PRN Administration Open End PICC Flush Sodium Chloride 10 - 40 ml 07/31/19 15:40 0.9% Nacl (Sterile) Posiflush IV UD PRN Port access or dressing change Tramadol HCl 50 mg 07/31/19 23:02 08/01/19 10:30 Ultram PO 50 mg Q6H PRN PRN Administration Pain Score 4-5/10 Trazodone HCl 100 mg 08/01/19 22:00 Desyrel PO QHS [facility]ONG Tuberculin PPD 5 tu 08/08/19 10:00 Tubersol, Aplisol, Ppd ID 08/08/19 10:01 X1 ONE Venlafaxine HCl 150 mg 08/01/19 06:00 08/01/19 04:45 Effexor Xr PO 150 mg DAILY [facility] Administration Problem List Fall (Acute) Chronic kidney disease (Chronic) Gout (Chronic) Edema (Chronic) Benzodiazepine dependence (Chronic) Neuropathic pain (Chronic) Hypokalemia (Chronic) Insomnia (Chronic) Body mass index (bmi) 39.0-39.9, adult (Chronic) Bipolar disorder (Chronic) Hypothyroidism (Chronic) Vital Signs Temp Pulse Resp BP Pulse Ox 97.7 F L 104 H 16 121/45 H 94 07/31/19 14:48 08/01/19 04:52 07/31/19 14:48 08/01/19 04:52 07/31/19 14:48 Oxygen Flow Rate (L/min) 4 Oxygen Delivery Method Nasal Cannula Weight: 99.8 kg Body Mass Index (BMI) 38.9 Sodium 143 mmol/L (136-145) 08/01/19 05:00 Potassium 3.4 mmol/L (3.5-5.1) L 08/01/19 05:00 Chloride 107 mmol/L (98-107) 08/01/19 05:00 Carbon Dioxide 30.0 mmol/L (21.0-32.0) 08/01/19 05:00 Anion Gap 6 (5-15) 08/01/19 05:00 BUN 12 mg/dL (7-18) 08/01/19 05:00 Creatinine 1.07 mg/dL (0.55-1.02) H 08/01/19 05:00 Est GFR (MDRD) Af Amer 66 mL/min (>60) 08/01/19 05:00 Est GFR (MDRD) Non-Af 55 mL/min (>60) L 08/01/19 05:00 BUN/Creatinine Ratio 11.2 RATIO (10-20) 08/01/19 05:00 Glucose 103 mg/dL (74-106) 08/01/19 05:00 Assessment/Plan: Psychotropic Medications: Unnecessary Medications: Bowel Regimen: - Provider Comments Provider responsibility: Provider responsible to enter orders to implement recommendations Provider Comments to Recommendations by Pharmacy: Agree
[2019-08-01] MEDS: Tuberculin,Purif.prot.deriv. 50 TU/ML Vial 5 ML ID (10:23)
[2019-08-01] MEDS: Acetaminophen 500 MG Tablet 1000 MG PO (10:30)
[2019-08-01] MEDS: traMADol 50 MG Tablet PO (10:30)
[2019-08-01] MEDS: 0.9% Saline Lock 10 ML Syringe IV (10:41)
--- NOTE | 2019-08-01 10:58 | NURSING ---
GOOD BLOOD RETURN IN PICC AND FLUSHED IN RIGHT UPPER ARM. PT TOLERATED WELL. IN ROOM.
[2019-08-01 11:15] LABS: Bedside Glucose 157 mg/dL (70-110)
[2019-08-01 13:34] LABS: Pathologist Review Reviewed
[2019-08-01] MEDS: Bisacodyl 5 MG Tablet 10 MG PO (13:36)
--- NOTE | 2019-08-01 13:41 | NURSING ---
NO BM IN 3 DAYS,PRN DULCOLAX GIVEN.
--- NOTE | 2019-08-01 15:18 | NURSING ---
wound photo: right buttock
[2019-08-01 15:49] VITALS: BP 118/57; PULSE 108; RESP 20; TEMP 36.4; O2SAT 81
[2019-08-01 16:51] LABS: Bedside Glucose 118 mg/dL (70-110)
[2019-08-01 18:15] VITALS: BP 118/57; PULSE 108
[2019-08-01 21:10] LABS: Bedside Glucose 139 mg/dL (70-110)
[2019-08-01] MEDS: Benztropine 2 MG Tablet 0.5 MG PO (21:59)
[2019-08-01] MEDS: traZODone 100 MG Tablet PO (21:59)
[2019-08-01] MEDS: Aspirin E.C. 81 MG Tablet PO (21:59)
[2019-08-01] MEDS: Pramipexole Di-HCl 0.125 MG Tablet PO (22:00)
[2019-08-01] MEDS: Atorvastatin Calcium 80 MG Tablet PO (22:00)
[2019-08-02] VITALS (9 sets, daily range): BP systolic 109–136; BP diastolic 38–84; PULSE 103–125; RESP 16–22; TEMP 36.9–37.7; O2SAT 86–100
[2019-08-02] MEDS: oxyCODONE 5 MG Tablet 10 MG PO ×2 (05:39→11:40)
[2019-08-02] MEDS: Glucerna Shake 120 ML LIQUID PO ×3 (05:51→17:04)
[2019-08-02] MEDS: busPIRone 5 MG Tablet 10 MG PO ×2 (05:51→17:05)
[2019-08-02] MEDS: Venlafaxine XR 150 MG Capsule PO (05:51)
[2019-08-02] MEDS: Empagliflozin 10 MG Tablet PO (05:52)
[2019-08-02] MEDS: Metoprolol Tartrate 25 MG Tablet PO ×2 (05:52→17:07)
[2019-08-02] MEDS: Furosemide 40 MG Tablet PO ×2 (05:52→17:06)
[2019-08-02] MEDS: Multivitamin (Healthy Eyes) Capsule 1 CAP PO ×2 (05:52→17:05)
[2019-08-02] MEDS: Polyethylene Glycol 3350 17 GM PACKET PO (05:52)
[2019-08-02] MEDS: Enoxaparin 40 MG/0.4 ML Syringe SC (05:52)
[2019-08-02] MEDS: Sodium Bicarbonate 650 MG Tablet 1300 MG PO ×2 (05:53→17:06)
[2019-08-02] MEDS: Pantoprazole Sodium 40 MG Tablet PO (05:53)
[2019-08-02] MEDS: Gabapentin 600 MG Tablet PO ×3 (05:53→17:04)
[2019-08-02] MEDS: Senna/Docusate Sodium 1 Tablet 2 TABLET PO (05:53)
[2019-08-02] MEDS: Cefdinir 300 MG Capsule PO ×2 (05:53→17:06)
[2019-08-02] MEDS: OLANZapine 10 MG Tablet 20 MG PO (05:54)
[2019-08-02] MEDS: Levothyroxine 75 MCG Tablet PO (05:54)
[2019-08-02] MEDS: Cyanocobalamin 500 MCG Tablet 1000 MCG PO (05:54)
[2019-08-02] MEDS: Nystatin Powder 15gm Bottle 1 APPLIC TOPICAL ×2 (05:58→17:07)
[2019-08-02 06:46] LABS: Bedside Glucose 151 mg/dL (70-110)
[2019-08-02] MEDS: Iron Polysaccharide Complex 150 MG CAPSULE PO (08:26)
[2019-08-02] MEDS: Allopurinol 300 MG Tablet PO (08:28)
[2019-08-02 11:30] LABS: Bedside Glucose 143 mg/dL (70-110)
[2019-08-02] MEDS: traMADol 50 MG Tablet PO (15:34)
--- NOTE | 2019-08-02 15:37 | NURSING ---
pt found to be up in room at bedside standing without assistance and tubing stretched across bed yelling help help bed alarm without batteries. back to bed and ultram tried instead of oxy d/t confusion. per staff pt has been confused upon admission.
--- NOTE | 2019-08-02 15:52 | NURSING ---
pt bed alarm going off and when got to room pt was sitting ecuadorean style on floor . denies any injury. pt with no neuro changes obs. dr. mcguire and family made aware. will move pt to closer room when bed available.
--- NOTE | 2019-08-02 16:09 | NURSING ---
Received order for UA and CS per Dr. Bennett
--- NOTE | 2019-08-02 16:16 | NURSING ---
dr mcguire aware of pt's fall and ua c&s ordered. attempted to call pt's cesilia but no answer.
[2019-08-02 16:17] LABS: Bacteria 0 SEEN /hpf (None Seen); Mucous, Urine 0 SEEN /hpf (<or=2+); Squamous Epithelial Cells - UA 0 SEEN /hpf (5-10)
[2019-08-02 16:19] LABS: Color, Urine Yellow (Yellow); Glucose, Dipstick 1000 mg/dl (Normal); Ketone-Dipstick Negative (Negative); Leukocyte Esterase-Dipstick 25 /ul (Negative); Nitrite-Dipstick Negative (Negative); Occult Blood-Urine Negative /ul (Negative); Protein-Dipstick 15 mg/dl (Negative); Urine Bilirubin Dipstick Negative (Negative); Urine Clarity Clear (Clear); Urine Urobilinogen Normal (Normal)
[2019-08-02 16:31] LABS: Red Blood Cells-Urine 0-5 SEEN /hpf (0-5); White Blood Cells 0-5 SEEN /hpf (0-5)
[2019-08-02 16:40] LABS: Bedside Glucose 110 mg/dL (70-110)
--- NOTE | 2019-08-02 18:35 | NURSING ---
nurse substance abuse walking past pt's room found pt to be pushing stand away and choking. sat up in bed and strong cough noted.
[2019-08-02] MEDS: hydrOXYzine PAM 25 MG Capsule 50 MG PO (19:02)
[2019-08-02 21:31] LABS: Bedside Glucose 95 mg/dL (70-110)
[2019-08-03] MEDS: Benztropine 2 MG Tablet 0.5 MG PO ×2 (00:05→21:23)
[2019-08-03] MEDS: Gabapentin 600 MG Tablet PO ×4 (00:11→21:22)
[2019-08-03] MEDS: traZODone 100 MG Tablet PO ×2 (00:11→21:22)
[2019-08-03] MEDS: Aspirin E.C. 81 MG Tablet PO ×2 (00:12→21:22)
[2019-08-03] MEDS: Pramipexole Di-HCl 0.125 MG Tablet PO ×2 (00:13→21:58)
[2019-08-03] MEDS: Atorvastatin Calcium 80 MG Tablet PO ×2 (00:13→21:22)
[2019-08-03] MEDS: 0.9% Saline Lock 10 ML Syringe IV ×2 (00:15→00:31)
[2019-08-03] MEDS: Glucerna Shake 120 ML LIQUID PO ×3 (00:18→21:18)
[2019-08-03] MEDS: hydrOXYzine PAM 25 MG Capsule 50 MG PO (03:24)
[2019-08-03] MEDS: Polyethylene Glycol 3350 17 GM PACKET PO (05:42)
[2019-08-03] MEDS: OLANZapine 10 MG Tablet 20 MG PO (05:42)
[2019-08-03] MEDS: Cyanocobalamin 500 MCG Tablet 1000 MCG PO (05:43)
[2019-08-03] MEDS: busPIRone 5 MG Tablet 10 MG PO ×2 (05:43→17:23)
[2019-08-03] MEDS: Senna/Docusate Sodium 1 Tablet 2 TABLET PO (05:44)
[2019-08-03] MEDS: Empagliflozin 10 MG Tablet PO (05:44)
[2019-08-03] MEDS: Sodium Bicarbonate 650 MG Tablet 1300 MG PO ×2 (05:44→17:26)
[2019-08-03] MEDS: Venlafaxine XR 150 MG Capsule PO (05:45)
[2019-08-03] MEDS: Pantoprazole Sodium 40 MG Tablet PO (05:45)
[2019-08-03] MEDS: Multivitamin (Healthy Eyes) Capsule 1 CAP PO (05:45)
[2019-08-03] MEDS: Furosemide 40 MG Tablet PO ×2 (05:45→17:25)
[2019-08-03 05:46] VITALS: BP 121/59; PULSE 103
[2019-08-03] MEDS: Metoprolol Tartrate 25 MG Tablet PO ×2 (05:46→17:25)
[2019-08-03] MEDS: Cefdinir 300 MG Capsule PO ×2 (05:46→17:25)
[2019-08-03] MEDS: Nystatin Powder 15gm Bottle 1 APPLIC TOPICAL (05:53)
[2019-08-03] MEDS: Levothyroxine 75 MCG Tablet PO (05:53)
[2019-08-03] MEDS: Enoxaparin 40 MG/0.4 ML Syringe SC (05:54)
[2019-08-03 06:26] LABS: Bedside Glucose 123 mg/dL (70-110)
[2019-08-03 07:13] VITALS: O2SAT 68
[2019-08-03 07:50] LABS: Anion Gap 3 (5-15); BUN 28 mg/dL (7-18); Calcium,Total 8.9 mg/dL (8.5-10.1); Chloride 102 mmol/L (98-107); Creatinine, Serum 1.27 mg/dL (0.55-1.02); EST Glomerular Filtration Rate 45 mL/min (>60); Est Glom Filt Rate - Afr Amer 55 mL/min (>60); Estimated Creatinine Clearance 37.51 ml/min; Glucose 119 mg/dL (74-106); Potassium 3.3 mmol/L (3.5-5.1); Sodium Level 141 mmol/L (136-145)
[2019-08-03 08:01] VITALS: O2SAT 90
[2019-08-03] MEDS: Allopurinol 300 MG Tablet PO (08:21)
[2019-08-03] MEDS: Iron Polysaccharide Complex 150 MG CAPSULE PO (08:21)
[2019-08-03 11:36] LABS: Bedside Glucose 93 mg/dL (70-110)
[2019-08-03 15:32] VITALS: BP 100/43; PULSE 102; RESP 20; TEMP 36.9; O2SAT 96
[2019-08-03 16:41] LABS: Bedside Glucose 115 mg/dL (70-110)
--- NOTE | 2019-08-03 17:18 | NURSING ---
moved pt in bed to room 213 to be closer to desk/pt safety
[2019-08-03 17:25] VITALS: PULSE 86
--- NOTE | 2019-08-03 18:12 | NURSING ---
correction pt moved to TCU 13
--- NOTE | 2019-08-03 18:15 | NURSING ---
pt fluctuates between being a&o x2 to seeing mice on the bed and talking in a flight of ideas
[2019-08-03 20:46] LABS: Bedside Glucose 119 mg/dL (70-110)
[2019-08-04] VITALS (7 sets, daily range): BP systolic 99–130; BP diastolic 47–71; PULSE 81–105; RESP 16–20; TEMP 35.8; O2SAT 91–97
--- NOTE | 2019-08-04 00:09 | NURSING ---
1900- Pt SaO2 reported to this RN 58%. Pt on 1L O2. Increased to 3L O2 per previous documentation and up to 95% after about 25 minutes. Pt remains on safety precautions due to confusion and high risk of falls.
[2019-08-04 06:26] LABS: Bedside Glucose 98 mg/dL (70-110)
[2019-08-04] MEDS: Glucerna Shake 120 ML LIQUID PO ×4 (06:28→20:23)
[2019-08-04] MEDS: Polyethylene Glycol 3350 17 GM PACKET PO (06:28)
[2019-08-04] MEDS: Pantoprazole Sodium 40 MG Tablet PO (06:30)
[2019-08-04] MEDS: Cefdinir 300 MG Capsule PO ×2 (06:30→17:48)
[2019-08-04] MEDS: Empagliflozin 10 MG Tablet PO (06:30)
[2019-08-04] MEDS: Senna/Docusate Sodium 1 Tablet 2 TABLET PO (06:31)
[2019-08-04] MEDS: Cyanocobalamin 500 MCG Tablet 1000 MCG PO (06:31)
[2019-08-04] MEDS: Venlafaxine XR 150 MG Capsule PO (06:31)
[2019-08-04] MEDS: Levothyroxine 75 MCG Tablet PO (06:31)
[2019-08-04] MEDS: Gabapentin 600 MG Tablet PO ×4 (06:31→20:19)
[2019-08-04] MEDS: busPIRone 5 MG Tablet 10 MG PO ×2 (06:31→17:47)
[2019-08-04] MEDS: Multivitamin (Healthy Eyes) Capsule 1 CAP PO ×2 (06:31→17:48)
[2019-08-04] MEDS: Sodium Bicarbonate 650 MG Tablet 1300 MG PO ×2 (06:32→17:48)
[2019-08-04] MEDS: OLANZapine 10 MG Tablet 20 MG PO (06:32)
[2019-08-04] MEDS: Nystatin Powder 15gm Bottle 1 APPLIC TOPICAL ×2 (06:39→20:27)
[2019-08-04] MEDS: Enoxaparin 40 MG/0.4 ML Syringe SC (06:40)
[2019-08-04] MEDS: Acetaminophen 500 MG Tablet 1000 MG PO (06:49)
[2019-08-04] MEDS: Allopurinol 300 MG Tablet PO (08:05)
[2019-08-04] MEDS: Metoprolol Tartrate 25 MG Tablet PO ×2 (08:05→17:48)
[2019-08-04] MEDS: Iron Polysaccharide Complex 150 MG CAPSULE PO (08:05)
[2019-08-04] MEDS: Furosemide 40 MG Tablet PO ×2 (08:05→17:48)
[2019-08-04] MEDS: 0.9% Saline Lock 10 ML Syringe IV ×2 (08:08→23:03)
[2019-08-04] MEDS: traMADol 50 MG Tablet PO ×2 (08:14→17:55)
--- NOTE | 2019-08-04 08:16 | NURSING ---
Addendum entered by Cinthya Gandara 08/04/19 09:02: new order for h/h, dc aspirin & lovenox. HH 10.2 today. improved from previous Original Note: pt assisted to BSC x2 staff, lg formed BM, dark maroon color noted to stool. Dr Bennett updated
[2019-08-04 08:57] LABS: Hematocrit 33.2 % (37-47); Hemoglobin 10.2 g/dL (12.0-15.0)
[2019-08-04] MEDS: oxyCODONE 5 MG Tablet 10 MG PO (11:24)
[2019-08-04 11:25] LABS: Bedside Glucose 104 mg/dL (70-110)
--- NOTE | 2019-08-04 11:56 | NURSING ---
wound photo: right buttock
[2019-08-04 17:16] LABS: Bedside Glucose 118 mg/dL (70-110)
[2019-08-04] MEDS: traZODone 100 MG Tablet PO (20:21)
[2019-08-04] MEDS: Atorvastatin Calcium 80 MG Tablet PO (20:21)
[2019-08-04] MEDS: Benztropine 2 MG Tablet 0.5 MG PO (20:22)
[2019-08-04] MEDS: Pramipexole Di-HCl 0.125 MG Tablet PO (20:22)
[2019-08-04 21:20] LABS: Bedside Glucose 139 mg/dL (70-110)
--- NOTE | 2019-08-04 23:00 | PN.SURG_ITS ---
Patient Problems: Active and Suspected Problems Fall (Acute) Subjective: Postop #10 Patient is known to me. 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 Operative culture showed Serratia marcescens. She is currently on Cefdinir. Pathology was negative for osteomyelitis. Wound care is with the [facility]. - Physical Exam Vitals/I&O's: Vital Signs Temp Pulse Resp BP Pulse Ox 96.5 F L 91 20 H 113/52 L 97 08/04/19 16:00 08/04/19 17:48 08/04/19 16:00 08/04/19 16:00 08/04/19 16:00 Oxygen Flow Rate (L/min) 4 Oxygen Delivery Method Nasal Cannula Weight: 200 lb 2 oz Body Mass Index (BMI) 38.9 Intake and Output for Last 24 Hours 08/02/19 08/03/19 08/04/19 23:59 23:59 23:59 Intake Total 240 / 240 590 / 590 600 / 600 Output Total 2225 / 2225 2050 / 0 2850 / 2850 Balance -1984 / -1984 -1460 / -1460 -2250 / -2250 General: Alert, Oriented x3 HEENT: PERRLA, EOMI Oral: Moist Mucosa Neck: Supple Abdomen: Soft, Non-Distended Skin: Ulcer/ Wound - right buttock and sacral pressure sore is stable. Bone is exposed. Mild redness in periwound area. No active bleeding seen. Continue the [facility]. Neurological: Cranial nerves II-XII grossly intact Psych/Mental Status: Normal Affect, Appropriate Microbiology Past 72 Hours 08/02/19 16:10 Urine Catheter - Ahmadi Urine Culture - Preliminary Culture exhibits no growth. Laboratory Results 08/04/19 06:08: POC Glucose 98 08/04/19 08:48: Hgb 10.2 L, Hct 33.2 L 08/04/19 11:22: POC Glucose 104 08/04/19 17:02: POC Glucose 118 H 08/04/19 21:09: POC Glucose 139 H Current Medications Acetaminophen (Tylenol) 1,000 mg PO Q6H PRN PRN PRN Reason: Pain Score 1-3/10 Last Admin: 08/04/19 06:49 Dose: 1,000 mg Documented by: Allopurinol (Zyloprim) 300 mg PO DAILYCM [facility] Last Admin: 08/04/19 08:05 Dose: 300 mg Documented by: Atorvastatin Calcium (Lipitor) 80 mg PO QHS [facility] Last Admin: 08/04/19 20:21 Dose: 80 mg Documented by: Benztropine Mesylate (Cogentin) 0.5 mg PO QHS [facility] Last Admin: 08/04/19 20:22 Dose: 0.5 mg Documented by: Bisacodyl (Dulcolax) 10 mg PO DAILY PRN PRN Reason: Constipation Last Admin: 08/01/19 13:36 Dose: 10 mg Documented by: Buspirone HCl (Buspar) 10 mg PO BID [facility] Last Admin: 08/04/19 17:47 Dose: 10 mg Documented by: Cefdinir (Omnicef [Equiv]) 300 mg PO Q12 [facility] Stop: 08/07/19 18:00 Last Admin: 08/04/19 17:48 Dose: 300 mg Documented by: Cyanocobalamin (Vitamin B12) 1,000 mcg PO DAILY [facility] Last Admin: 08/04/19 06:31 Dose: 1,000 mcg Documented by: Empagliflozin (Jardiance) 10 mg PO DAILY [facility] Last Admin: 08/04/19 06:30 Dose: 10 mg Documented by: Furosemide (Lasix) 40 mg PO BID [facility] Last Admin: 08/04/19 17:48 Dose: 40 mg Documented by: Gabapentin (Neurontin) 600 mg PO 4X/DAY [facility] Last Admin: 08/04/19 20:19 Dose: 600 mg Documented by: Heparin Sodium (Beef Lung) () 50 units IV UD PRN PRN Reason: PICC Line Heparin Flush Hydroxyzine Pamoate (Vistaril Pamoate Capsule) 50 mg PO QHS PRN PRN PRN Reason: ANXIETY Last Admin: 08/03/19 03:24 Dose: 50 mg Documented by: Levothyroxine Sodium (Synthroid) 75 mcg PO DAILY [facility] Last Admin: 08/04/19 06:31 Dose: 75 mcg Documented by: Metoprolol Tartrate (Lopressor (Beta Armani)) 25 mg PO BID [facility] Last Admin: 08/04/19 17:48 Dose: 25 mg Documented by: Multivitamins/Minerals (Healthy Eyes) 1 capsule PO BID [facility] Last Admin: 08/04/19 17:48 Dose: 1 capsule Documented by: Nicotine (Nicoderm Cq (Pbkc)) 7 mg TRANSDERM. DAILY [facility] Last Admin: 08/04/19 06:37 Dose: 7 mg Documented by: Nutritional Formula ([place] Flavor) 1 packet PO BIDCM [facility] Last Admin: 08/04/19 17:46 Dose: 1 packet Documented by: Nutritional Formula (Lactose Free) (Glucerna Shake) 120 ml PO 4X/DAY [facility] Last Admin: 08/04/19 20:23 Dose: 120 ml Documented by: Nystatin (Mycostatin Powder) 1 applic TOPICAL 0600,2200 [facility]; Protocol Last Admin: 08/04/19 20:27 Dose: 1 applicatio Documented by: Olanzapine (Zyprexa) 20 mg PO DAILY [facility] Last Admin: 08/04/19 06:32 Dose: 20 mg Documented by: Oxycodone HCl (Oxyir) 10 mg PO Q4H PRN PRN PRN Reason: Pain Score 6-10/10 Last Admin: 08/04/19 11:24 Dose: 10 mg Documented by: Pantoprazole Sodium (Protonix) 40 mg PO DAILY [facility] Last Admin: 08/04/19 06:30 Dose: 40 mg Documented by: Polyethylene Glycol (Miralax) 17 gm PO DAILY [facility] Last Admin: 08/04/19 06:28 Dose: 17 gm Documented by: Polysaccharide Iron [facility] ([facility]rex 150) [facility] Last Admin: 08/04/19 08:05 Dose: 150 mg Documented by: Potassium Chloride (K-Dur) 20 meq PO TIDCM [facility] Last Admin: 08/04/19 17:47 Dose: 20 meq Documented by: Pramipexole Dihydrochloride (Mirapex) 0.125 mg PO QHS [facility] Last Admin: 08/04/19 20:22 Dose: 0.125 mg Documented by: Senna/Docusate Sodium (Senokot-S, Melia-Colace) 2 tablet PO BID [facility] Last Admin: 08/04/19 17:48 Dose: Not Given Documented by: Sodium Bicarbonate (Sodium Bicarbonate) 1,300 mg PO BID [facility] Last Admin: 08/04/19 17:48 Dose: 1,300 mg Documented by: Sodium Chloride () 10 - 40 ml IV UD PRN PRN Reason: Open End PICC Flush Last Admin: 08/04/19 08:08 Dose: 10 ml Documented by: Sodium Chloride (0.9% Nacl (Sterile) Posiflush) 10 - 40 ml IV UD PRN PRN Reason: Port access or dressing change Sodium Chloride () 10 - 40 ml IV UD PRN PRN Reason: Closed End PICC Flush Sodium Chloride (0.9% Nacl (Sterile) Posiflush) 10 - 40 ml IV UD PRN PRN Reason: Port access or dressing change Tramadol HCl (Ultram) 50 mg PO Q6H PRN PRN PRN Reason: Pain Score 4-5/10 Last Admin: 08/04/19 17:55 Dose: 50 mg Documented by: Trazodone HCl (Desyrel) 100 mg PO QHS [facility] Last Admin: 08/04/19 20:21 Dose: 100 mg Documented by: Tuberculin PPD (Tubersol, Aplisol, Ppd) 5 tu ID [id number] Stop: 08/08/19 10:01 Venlafaxine HCl (Effexor Xr) 150 mg PO DAILY [facility] Last Admin: 08/04/19 06:31 Dose: 150 mg Documented by: Medical Necessity - Tobacco Use Smoking Status: Current every day smoker Tobacco Use: Secondhand, Cigarettes, Vapor Assessment/Plan All Active Problems Fall (Acute) Necrotizing soft tissue infection (Acute) Pressure ulcer, buttock, right, unstageable (Acute) Decreased renal function (Acute) ILIANA (acute kidney injury) (Acute) 1. 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 2. Necrotizing soft tissue infection. 2. Diabetes mellitus. 3. Smoker. Operative culture showed Serratia marcescens. She is currently on Cefdinir. Pathology is negative for osteomyelitis. Continue the VAC. If periwound redness persists, may switch to Dakin's dressings temporarily during the [facility] holiday. Anticipate increased metabolic demands from the infection and from the pressure sore. Prealbumin was 14.4. Encourage nutritional supplementation with protein to help the healing process. After discharge, can return to the [facility]. Encouraged patient to stop smoking as it may have deleterious effects on wound healing.
[2019-08-05] VITALS (9 sets, daily range): BP systolic 104–124; BP diastolic 44–65; PULSE 84–102; RESP 14–20; TEMP 35.9; O2SAT 87–94
[2019-08-05] MEDS: Gabapentin 600 MG Tablet PO ×4 (05:09→19:49)
[2019-08-05] MEDS: busPIRone 5 MG Tablet 10 MG PO ×2 (05:09→17:45)
[2019-08-05] MEDS: Glucerna Shake 120 ML LIQUID PO ×4 (05:09→19:50)
[2019-08-05] MEDS: Levothyroxine 75 MCG Tablet PO (05:11)
[2019-08-05] MEDS: Empagliflozin 10 MG Tablet PO (05:11)
[2019-08-05] MEDS: Cefdinir 300 MG Capsule PO ×2 (05:11→17:46)
[2019-08-05] MEDS: Metoprolol Tartrate 25 MG Tablet PO ×2 (05:11→17:46)
[2019-08-05] MEDS: Pantoprazole Sodium 40 MG Tablet PO (05:12)
[2019-08-05] MEDS: Furosemide 40 MG Tablet PO ×2 (05:12→17:46)
[2019-08-05] MEDS: Sodium Bicarbonate 650 MG Tablet 1300 MG PO ×2 (05:13→17:46)
[2019-08-05] MEDS: Multivitamin (Healthy Eyes) Capsule 1 CAP PO ×2 (05:13→17:46)
[2019-08-05] MEDS: Venlafaxine XR 150 MG Capsule PO (05:13)
[2019-08-05] MEDS: Senna/Docusate Sodium 1 Tablet 2 TABLET PO (05:13)
[2019-08-05] MEDS: Cyanocobalamin 500 MCG Tablet 1000 MCG PO (05:14)
[2019-08-05] MEDS: OLANZapine 10 MG Tablet 20 MG PO (05:14)
[2019-08-05] MEDS: Nystatin Powder 15gm Bottle 1 APPLIC TOPICAL ×2 (05:21→19:54)
[2019-08-05] MEDS: 0.9% Saline Lock 10 ML Syringe IV ×3 (05:30→22:04)
[2019-08-05 06:19] LABS: Anion Gap 4 (5-15); BUN 28 mg/dL (7-18); BUN/Creat Ratio 20.9 RATIO (10-20); Calcium,Total 8.8 mg/dL (8.5-10.1); Chloride 102 mmol/L (98-107); Creatinine, Serum 1.34 mg/dL (0.55-1.02); EST Glomerular Filtration Rate 42 mL/min (>60); Est Glom Filt Rate - Afr Amer 51 mL/min (>60); Estimated Creatinine Clearance 35.55 ml/min; Glucose 105 mg/dL (74-106); Potassium 3.5 mmol/L (3.5-5.1); Sodium Level 140 mmol/L (136-145)
[2019-08-05 06:35] LABS: Bedside Glucose 134 mg/dL (70-110)
[2019-08-05] MEDS: Iron Polysaccharide Complex 150 MG CAPSULE PO (07:38)
[2019-08-05] MEDS: Allopurinol 300 MG Tablet PO (07:39)
[2019-08-05] MEDS: traMADol 50 MG Tablet PO (07:46)
[2019-08-05 10:55] LABS: Bedside Glucose 217 mg/dL (70-110)
[2019-08-05] MEDS: oxyCODONE 5 MG Tablet 10 MG PO (11:46)
[2019-08-05 17:06] LABS: Bedside Glucose 110 mg/dL (70-110)
[2019-08-05] MEDS: traZODone 100 MG Tablet PO (19:49)
[2019-08-05] MEDS: Atorvastatin Calcium 80 MG Tablet PO (19:50)
[2019-08-05] MEDS: Pramipexole Di-HCl 0.125 MG Tablet PO (19:50)
[2019-08-05] MEDS: Benztropine 2 MG Tablet 0.5 MG PO (19:50)
[2019-08-05 20:56] LABS: Bedside Glucose 133 mg/dL (70-110)
--- NOTE | 2019-08-06 | NURSING ---
Patient had cpap on until about 2244. Patient's O2 sats had been running at 95 while patient's cpap on. Patient woke up around 2244 and was extremely confused. Patient thought she was home. Patient was unable to be reoriented. Patient trying to climb out of bed. Patient states that she is waiting for Mark to come home. Explained to the patient that she is in hospital and patient became agitated. Called patient's , Mark to talk with her. Patient did calm down after talking to Mark but patient still thinking she is at home. Patient pulling on Ahmadi. Patient reminded that she has a Ahmadi. Patient states that she knows but she has to pee. Patient assisted to BSC to try and calm patient down. Patient did calm down and staff was able to patient back to bed. Patient had no more complaints about peeing. Patient now on 5 L of O2 stating at 95. Patient a lot more pleasant.
[2019-08-06] MEDS: oxyCODONE 5 MG Tablet 10 MG PO ×2 (01:40→06:35)
--- NOTE | 2019-08-06 03:36 | CPS ---
pt woke up confused and took cpap mask off-pt placed back on 5 l/m via nc by nurse.
[2019-08-06 06:20] VITALS: BP 116/64; PULSE 97; O2SAT 90
[2019-08-06 06:22] VITALS: BP 116/64; PULSE 97
[2019-08-06] MEDS: Venlafaxine XR 150 MG Capsule PO (06:22)
[2019-08-06] MEDS: Levothyroxine 75 MCG Tablet PO (06:22)
[2019-08-06] MEDS: Multivitamin (Healthy Eyes) Capsule 1 CAP PO ×2 (06:22→17:37)
[2019-08-06] MEDS: Pantoprazole Sodium 40 MG Tablet PO (06:22)
[2019-08-06] MEDS: Sodium Bicarbonate 650 MG Tablet 1300 MG PO ×2 (06:22→17:37)
[2019-08-06] MEDS: Metoprolol Tartrate 25 MG Tablet PO ×2 (06:22→17:37)
[2019-08-06] MEDS: Cyanocobalamin 500 MCG Tablet 1000 MCG PO (06:22)
[2019-08-06] MEDS: Empagliflozin 10 MG Tablet PO (06:22)
[2019-08-06] MEDS: Furosemide 40 MG Tablet PO ×2 (06:23→17:37)
[2019-08-06] MEDS: OLANZapine 10 MG Tablet 20 MG PO (06:23)
[2019-08-06] MEDS: Gabapentin 600 MG Tablet PO ×4 (06:23→21:42)
[2019-08-06] MEDS: Cefdinir 300 MG Capsule PO ×2 (06:23→17:36)
[2019-08-06 06:25] LABS: Bedside Glucose 105 mg/dL (70-110)
[2019-08-06] MEDS: Glucerna Shake 120 ML LIQUID PO ×4 (06:29→21:44)
[2019-08-06] MEDS: busPIRone 5 MG Tablet 10 MG PO ×2 (06:30→17:37)
[2019-08-06] MEDS: Nystatin Powder 15gm Bottle 1 APPLIC TOPICAL ×2 (06:37→21:43)
[2019-08-06] MEDS: Iron Polysaccharide Complex 150 MG CAPSULE PO (08:44)
[2019-08-06] MEDS: Allopurinol 300 MG Tablet PO (08:44)
[2019-08-06] MEDS: traMADol 50 MG Tablet PO (09:23)
[2019-08-06 11:16] LABS: Bedside Glucose 131 mg/dL (70-110)
--- NOTE | 2019-08-06 15:10 | CASEMGMT ---
Social Work IDT met patient, , daughter for care plan meeting. Pt is is max x2 for bed mobility, min to mod x2 for transfers, max to dependent for all ADLS, walking 40 ft FWW max x[address]. ST working with pt on orientation, recall, answering questions with accuracy, cognition, and swallowing. Pt is very drowsy, some hallucinations, very disorientated. Pt has difficulty swallowing safely when fatigued. Pt lives at home with her who assisted some IADLS. Explained insurance coverage with [employer] 08/06 and continued stay is not guaranteed. Pt has new O2, catheter, wound vac and wound care. Will continue to follow. Sonam Haq, STONE FINISHER PRINCIPAL NETWORK ARCHITECT
[2019-08-06 15:54] VITALS: BP 124/59; PULSE 105; RESP 20; TEMP 36.9; O2SAT 93
[2019-08-06 16:50] LABS: Bedside Glucose 126 mg/dL (70-110)
[2019-08-06 17:37] VITALS: BP 124/59; PULSE 105
[2019-08-06 21:40] LABS: Bedside Glucose 127 mg/dL (70-110)
[2019-08-06] MEDS: Benztropine 2 MG Tablet 0.5 MG PO (21:40)
[2019-08-06] MEDS: Pramipexole Di-HCl 0.125 MG Tablet PO (21:41)
[2019-08-06] MEDS: Atorvastatin Calcium 80 MG Tablet PO (21:41)
[2019-08-06] MEDS: traZODone 100 MG Tablet PO (21:42)
[2019-08-07] VITALS (9 sets, daily range): BP systolic 100–128; BP diastolic 47–72; PULSE 108–123; RESP 20; TEMP 36.9; O2SAT 89–92
--- NOTE | 2019-08-07 02:45 | NURSING ---
Per TOOL AND DIE MAKER APPRENTICE, little output in martinez last 8hr, bladder scan for 1000ml, martinez irrigated, 1200ml output 2 hrs after irrigation
[2019-08-07 06:36] LABS: Bedside Glucose 149 mg/dL (70-110)
[2019-08-07] MEDS: Multivitamin (Healthy Eyes) Capsule 1 CAP PO (07:00)
[2019-08-07] MEDS: Empagliflozin 10 MG Tablet PO (07:00)
[2019-08-07] MEDS: Gabapentin 600 MG Tablet PO (07:00)
[2019-08-07] MEDS: busPIRone 5 MG Tablet 10 MG PO (07:00)
[2019-08-07] MEDS: Cyanocobalamin 500 MCG Tablet 1000 MCG PO (07:01)
[2019-08-07] MEDS: Venlafaxine XR 150 MG Capsule PO (07:01)
[2019-08-07] MEDS: Furosemide 40 MG Tablet PO (07:02)
[2019-08-07] MEDS: Sodium Bicarbonate 650 MG Tablet 1300 MG PO (07:02)
[2019-08-07] MEDS: OLANZapine 10 MG Tablet 20 MG PO (07:02)
[2019-08-07] MEDS: Cefdinir 300 MG Capsule PO (07:02)
[2019-08-07] MEDS: Levothyroxine 75 MCG Tablet PO (07:03)
[2019-08-07] MEDS: Nystatin Powder 15gm Bottle 1 APPLIC TOPICAL ×2 (07:03→21:33)
[2019-08-07] MEDS: Pantoprazole Sodium 40 MG Tablet PO (07:03)
[2019-08-07] MEDS: Glucerna Shake 120 ML LIQUID PO (07:04)
[2019-08-07] MEDS: Metoprolol Tartrate 25 MG Tablet PO (07:07)
[2019-08-07] MEDS: Iron Polysaccharide Complex 150 MG CAPSULE PO (08:19)
[2019-08-07] MEDS: Allopurinol 300 MG Tablet PO (08:19)
--- NOTE | 2019-08-07 11:41 | NURSING ---
Resident lethargic. Does not open eyes or respond to verbal stimulation. Incontinent of large amounts of maroon stool with areas of flank blood noted. Temp 99.9. Elevated pulse. Mumbles when moved in bed and cleaned from stool. OBEY Barney aware.
[2019-08-07 12:30] LABS: Bedside Glucose 176 mg/dL (70-110)
[2019-08-07 12:49] LABS: Absolute Neutrophil Count 18.1 X10^3/uL (2.0-7.7); Basophil# 0.16 X10^3/uL; Basophil% 0.6 % (0-1); Eosinophil# 0.03 X10^3/uL; Eosinophils% 0.1 % (0-5); Hematocrit 38.7 % (37-47); Lymphocyte % 11.3 % (19-41); Mean Corpuscular Hgb 32.3 pg (27.0-32.0); Mean Platelet Vol. 9.4 fl (6.2-12.0); Monocyte# 2.93 X10^3/uL; Monocyte% 11.9 % (0-10); NRBC Flagged by Analyzer 0.3 % (0-5); Neutrophil % 73.5 % (47-70); POSITIVE DIFFERENTIAL YES; Platelet Count 515 K/mm3 (150-450); RBC Distribution Width CV 15.8 % (11.6-14.6); RBC Distribution Width SD 58.4 fl (35.1-43.9); Red Blood Count 3.72 M/mm3 (4.2-5.4); White Blood Count 24.7 K/mm3 (4.4-11.0)
[2019-08-07 12:54] LABS: Bacteria 0 SEEN /hpf (None Seen); Mucous, Urine 0 SEEN /hpf (<or=2+); Red Blood Cells-Urine 0 SEEN /hpf (0-5); Squamous Epithelial Cells - UA 0 SEEN /hpf (5-10)
--- NOTE | 2019-08-07 13:00 | NURSING ---
Addendum entered by Suad Green 08/07/19 13:14: Ramon called in regards to patients status and orders that have been placed. He is coming up to see resident. Original Note: Orders received from Dr Bennett. Blood cultures drawn. IV fluids started as bolus. Pt remains lethargic.
[2019-08-07 13:02] LABS: Anion Gap 3 (5-15); BUN 33 mg/dL (7-18); BUN/Creat Ratio 20.1 RATIO (10-20); Calcium,Total 9.3 mg/dL (8.5-10.1); Chloride 104 mmol/L (98-107); Creatinine, Serum 1.64 mg/dL (0.55-1.02); EST Glomerular Filtration Rate 34 mL/min (>60); Est Glom Filt Rate - Afr Amer 41 mL/min (>60); Estimated Creatinine Clearance 29.04 ml/min; Glucose 176 mg/dL (74-106); Potassium 3.8 mmol/L (3.5-5.1); Sodium Level 141 mmol/L (136-145)
[2019-08-07 13:02] LABS: Color, Urine Yellow (Yellow); Glucose, Dipstick 1000 mg/dl (Normal); Ketone-Dipstick Negative (Negative); Leukocyte Esterase-Dipstick 500 /ul (Negative); Nitrite-Dipstick Negative (Negative); Occult Blood-Urine 10 /ul (Negative); Protein-Dipstick 30 mg/dl (Negative); Specific Gravity, Urine 1.005 (1.002-1.030); Urine Bilirubin Dipstick Negative (Negative); Urine Clarity Sl. Cloudy (Clear); Urine Urobilinogen Normal (Normal)
[2019-08-07] MEDS: 0.9% Normal Saline 1,000 ML 999 ML IV (13:02)
[2019-08-07 13:08] LABS: Differential Indicated SCAN CRITERIA MET
[2019-08-07 13:13] LABS: Yeast-Urine 2+ /hpf (None Seen)
[2019-08-07 13:14] LABS: White Blood Cells 5-10 SEEN /hpf (0-5)
[2019-08-07 13:37] LABS: Lactic Acid 1.6 mmol/L (0.4-1.9)
[2019-08-07] MEDS: 0.9% Normal Saline 1,000 ML 75 ML IV (14:04)
--- NOTE | 2019-08-07 14:04 | NURSING ---
Pt remains with eyes closed and lethargic. Unable to receive second set of blood cultures peripherally. Dr Bennett notified and he says to DC order for second set. Zithromax started to infuse at this time.
--- NOTE | 2019-08-07 14:15 | NURSING ---
states that patient has been very lethargic today and had some blood in her stool. nursing has notified Dr Bennett.
--- NOTE | 2019-08-07 14:24 | NURSING ---
Taken to xray by SURVEILLANCE MANAGER's per bed.
--- NOTE | 2019-08-07 14:30 | RAD_ITS ---
STUDY: X-RAY - ABDOMEN/PELVIS REASON FOR EXAM: Female, 63 years old. intractable back pain, fever, altered mental status TECHNIQUE: 3 views of the abdomen were performed COMPARISON: 25 July 2019, 24 July 2019, FINDINGS: Normal visualized lung bases. There is an unremarkable bowel gas pattern. There is no demonstrated free abdominal air. There are coils in the right upper quadrant, possibly embolization related. The visualized liver, spleen and kidneys are grossly normal in size and morphology. Normal soft tissue structures. There is lower lumbar hardware fixation and electronic stone inflation device. These are evaluated in limited fashion and appear unremarkable. RAD/Abdomen Single View IMPRESSION: No intestinal obstruction. Lower lumbar hardware fixation. Electronically Signed: Zahra Barajas, at 17:00 EST Tel , Service support ,
--- NOTE | 2019-08-07 14:30 | RAD_ITS ---
STUDY: X-RAY CHEST REASON FOR EXAM: Female, 63 years old. Intractable back pain, fever, altered mental status TECHNIQUE: Single AP portable view of the chest. COMPARISON: Comparison is made with prior study dated July 24, 2019. FINDINGS: A right-sided PICC line catheter is seen with the tip in the proximal portion of the superior vena cava. Mild degree of increased markings at the lung bases suggestive of either bibasilar atelectasis and/or early infiltrates. There is no demonstrated pleural abnormality. There is moderate cardiac enlargement. Normal mediastinum and barrera. Normal visualized pulmonary arteries. There is atherosclerotic calcification of the aortic arch with tortuosity. Normal visualized thoracic spine. Normal visualized ribs, clavicles, and shoulders. There is no demonstrated abnormality of the visualized soft tissue structures of the upper abdomen. RAD/Chest 1 View IMPRESSION: Increased markings at the lung bases suggestive of bibasilar atelectasis and/or early bilateral infiltrates. Follow-up is recommended. Electronically Signed: Alan Dennis, at 15:38 EST , Service support ,
--- NOTE | 2019-08-07 15:16 | NURSING ---
Remains resting with little verbal response. Spo2 90% on 5liters of oxygen per nasal cannula. Changed to CPAP with 5L of O2 bled in. Will continue to monitor.
[2019-08-07] MEDS: Ceftriaxone 1 GM/50 ML BAG IV (15:17)
--- NOTE | 2019-08-07 16:42 | CASEMGMT ---
Social Work Reviewed and agreed with social work internal combustion engine assembler documentation on this date. Sonam Haq, RECREATION THERAPY AIDE OUTSIDE MACHINIST
[2019-08-07] MEDS: Menthol/Lanolin/Calamine/Znox 113 GM Tube 1 APPLIC TOPICAL (17:27)
--- NOTE | 2019-08-07 19:11 | PN_ITS ---
Subjective: Resident had fever 102 today, tachycardic, mild hypotension. Resident seen in room, she is currently resting comfortably with CPAP mask on. Vitals/I&O's: Vital Signs Temp Pulse Resp BP Pulse Ox 98.5 F 113 H 20 H 100/51 L 92 08/07/19 15:29 08/07/19 17:06 08/07/19 15:29 08/07/19 15:29 08/07/19 17:06 Oxygen Flow Rate (L/min) 5 Oxygen Delivery Method CPAP Weight: 90.804 kg Body Mass Index (BMI) 38.9 Intake and Output for Last 24 Hours 08/05/19 08/06/19 08/07/19 23:59 23:59 23:59 Intake Total 540 / 540 360 / 360 2758 / 2758 Output Total 700 / 700 1850 / 1850 2200 / 2200 Balance -160 / -160 -1490 / -1490 558 / 558 Microbiology Past 72 Hours 08/02/19 16:10 Urine Catheter - Ahmadi Urine Culture - Final Culture exhibits no growth. Laboratory Results 08/06/19 21:34: POC Glucose 127 H 08/07/19 06:17: POC Glucose 149 H 08/07/19 11:50: Urine Color Yellow, Urine Clarity Sl. Cloudy, Urine pH 7.0, Ur Specific Staples 1.005, Urine Protein 30 H, Urine Glucose (UA) 1000 H, Urine Ketones Negative, Urine Occult Blood 10 H, Urine Nitrite Negative, Urine Bilirubin Negative, Urine Urobilinogen Normal, Ur Leukocyte Esterase 500 H, Urine RBC 0 SEEN, Urine WBC 5-10 SEEN, Ur Squamous Epith Cells 0 SEEN, Urine Bacteria 0 SEEN, Urine Mucus 0 SEEN, Urine Yeast 2+ 08/07/19 12:28: POC Glucose 176 H 08/07/19 12:30: Sodium 141, Potassium 3.8, Chloride 104, Carbon Dioxide 34.0 H, Anion Gap 3 L, BUN 33 H, Creatinine 1.64 H, Estim Creat Clear Calc 29.04, Est GFR (MDRD) Af Amer 41 L, Est GFR (MDRD) Non-Af 34 L, BUN/Creatinine Ratio 20.1 H , Glucose 176 H, Calcium 9.3 08/07/19 12:30: WBC 24.7 H, RBC 3.72 L, Hgb 12.0, Hct 38.7, MCV 104.0 H, MCH 32.3 H, MCHC 31.0 L, RDW Std Deviation 58.4 H, RDW Coeff of Harper 15.8 H, Plt Count 515 H, MPV 9.4, Immature Gran % (Auto) 2.600 H, Neut % (Auto) 73.5 H, Lymph % (Auto) 11.3 L, Payette % (Auto) 11.9 H, Eos % (Auto) 0.1, Baso % (Auto) 0.6, Absolute Neuts (auto) 18.1 H, Absolute Lymphs (auto) 2.80, Nucleated RBC % 0.3 08/07/19 13:00: Lactic Acid 1.6 Past Medical History Past Medical History (Chronic Problems): Chronic Problems Chronic kidney disease (Chronic) Gout (Chronic) Edema (Chronic) Benzodiazepine dependence (Chronic) Neuropathic pain (Chronic) Hypokalemia (Chronic) Insomnia (Chronic) Body mass index (bmi) 39.0-39.9, adult (Chronic) Bipolar disorder (Chronic) Hypothyroidism (Chronic) Pressure ulcer of sacral region, stage 4 (Chronic) infected necrotizing right buttock and right sacral pressure sore, Stage IV Pressure ulcer of right buttock, stage 4 (Chronic) infected necrotizing right buttock and right sacral pressure sore, Stage IV Blood glucose elevated (Chronic) Hypertension (Chronic) Hyperlipidemia (Chronic) Chronic back pain (Chronic) Impaired mobility (Chronic) Severe obesity (BMI 35.0-35.9 with comorbidity) (Chronic) CKD (chronic kidney disease), stage III (Chronic) Diabetes mellitus, type II (Chronic) Anxiety and depression (Chronic) RLS (restless legs syndrome) (Chronic) Nicotine vapor product user (Chronic) Former tobacco use (Chronic) Macrocytic anemia (Chronic) Intractable low back pain (Chronic) Allergies Iodinated Contrast Media [CONTRASTS] Allergy (Verified 07/24/19 16:36) Hives morphine Adverse Reaction (Verified 07/24/19 16:36) Nausea Home Medications: Ambulatory Orders Medication Instructions Recorded Allopurinol 300 mg PO DAILY 07/22/19 Benztropine Mesylate 0.5 mg PO QHS 07/22/19 Buspirone HCl 10 mg PO BID 07/22/19 Cyanocobalamin (Vitamin B-12) 1,000 mcg PO DAILY 07/22/19 [Vitamin B-12] Empagliflozin [Jardiance] 10 mg PO DAILY 07/22/19 Furosemide 40 mg PO BID 07/22/19 Gabapentin [Neurontin] 600 mg PO 4X/DAY 07/22/19 Hydroxyzine HCl 50 mg PO QHS PRN PRN 07/22/19 Levothyroxine [Synthroid] 75 mcg PO DAILY 07/22/19 Olanzapine 20 mg PO DAILY 07/22/19 Omeprazole 40 mg PO DAILY 07/22/19 Potassium Chloride [K-Dur] 10 meq PO BID 07/22/19 Pramipexole Di-HCl [Mirapex] 0.125 mg PO QHS 07/22/19 Psyllium Husk [Fiber] 4 cap PO DAILY 07/22/19 Rosuvastatin Calcium 40 mg PO QHS 07/22/19 Sodium Bicarbonate 2 tab PO BID 07/22/19 Venlafaxine HCl [Venlafaxine HCl 150 mg PO DAILY 07/22/19 ER] traZODone [Desyrel] 25 mg PO QHS 07/22/19 Aspirin [Aspir 81] 81 mg PO QHS 07/24/19 Cholecalciferol (Vitamin D3) 5,000 unit PO DAILY 07/24/19 [Vitamin D3] Metoprolol Tartrate 25 mg PO BID 07/24/19 Mv-Min/FA/Vit K/Lycop/Lut/Zeax 1 tab PO TID 07/24/19 [Ocuvite Eye Plus Multi Tablet] Acetaminophen [Tylenol Tablet] 650 mg PO Q6H PRN PRN tab 07/31/19 Cefdinir [Omnicef [equiv]] 300 mg PO Q12 07/31/19 Glucerna Shake 120 ml PO 4X/DAY 07/31/19 Heparin Injection (Vial) [Heparin 5,000 unit SUBCUT Q12 07/31/19 Na] Insulin Lispro [Humalog KwikPen] See Protocol SUBCUT ACHS 07/31/19 Nicotine [Nicoderm Cq] 7 mg TRANSDERM. DAILY 07/31/19 Oxycodone [Oxyir] 5 mg PO Q4H PRN PRN 3 Days #12 tab 07/31/19 Surgical History: appendectomy, cholecystectomy, hysterectomy, - - Lumbar spinal surgery with hardware, at least 4 previous back surgeries. Psychiatric History: Anxiety, Bipolar, Depression SHANK PIECE TACKER History: No pertinent SHANK PIECE TACKER history Lives: Spouse/ Significant Other Smoking Status: Current every day smoker Tobacco Use: Secondhand, Cigarettes, Vapor Alcohol: None Drugs: None - *Family History Maternal History Items: - - Patient denies any market maternal or paternal family history including heart disease, diabetes, cancer. Paternal History Items: - - Patient denies any market maternal or paternal family history including heart disease, diabetes, cancer. Capacity - Capacity Assessment Tool Can the patient make a choice & communicate that choice?: Yes Can the patient understand benefits, risks and alternatives?: Yes Can the patient make a logical, rational choice?: Yes Is the choice the patient makes consistent w/ their values?: Yes Is there an impending, emergent risk to the patient?: No Does the patient have an Advance Directive?: No Is there a Surrogate Available?: Yes i.e. HCPOA: Yes i.e. close relative (spouse, child, parent, sibling)?: Yes Review of Systems Constitutional: Denies: Chills, Fever, Weight Change HEENT: Denies: Head Aches, Sinus Congestion, Sinus Drainage Cardiovascular: Denies: Chest Pain, Palpitations Respiratory: Denies: Cough, Shortness of breath at rest, Sputum production Gastrointestinal: Denies: Abdominal Pain, Nausea, Vomiting Genitourinary: Denies: Dysuria Musculoskeletal: Denies: Joint Pain, Joint Tenderness Skin: Denies: Rash, Wounds Neurological: Denies: Numbness, Tingling, Focal weakness Psychiatric: Denies: Anxiety, Depression, Homicidal Ideations, Suicidal Ideation s Hematologic/ Lymphatic: Denies: Easy Bruising, Easy Bleeding Patient Problems: Active and Suspected Problems Fall (Acute) - Physical Exam Vitals/I&O's: Vital Signs Temp Pulse Resp BP Pulse Ox 98.5 F 113 H 20 H 100/51 L 92 08/07/19 15:29 08/07/19 17:06 08/07/19 15:29 08/07/19 15:29 08/07/19 17:06 Oxygen Flow Rate (L/min) 5 Oxygen Delivery Method CPAP Weight: 90.804 kg Body Mass Index (BMI) 38.9 Intake and Output for Last 24 Hours 08/05/19 08/06/19 08/07/19 23:59 23:59 23:59 Intake Total 540 / 540 360 / 360 2758 / 2758 Output Total 700 / 700 1850 / 1850 2200 / 2200 Balance -160 / -160 -1490 / -1490 558 / 558 General: Alert, Oriented x3, Cooperative HEENT: Atraumatic, PERRLA, EOMI, Normocephalic Neck: Supple, No JVD, Negative Carotid Bruits Lungs: Clear to auscultation, Normal air movement, Wheezes Cardiovascular: Regular rate, No murmurs Abdomen: Bowel Sounds Present, Soft, Non Tender Extremities: No edema, Capillary Refill Less than 3 Seconds Skin: No rashes, No breakdown Musculoskeletal: No Tenderness to Palpation of Joints or Extremities Neurological: Cranial nerves II-XII grossly intact Psych/Mental Status: Normal Affect, Appropriate Microbiology Past 72 Hours 08/02/19 16:10 Urine Catheter - Ahmadi Urine Culture - Final Culture exhibits no growth. Laboratory Results 08/06/19 21:34: POC Glucose 127 H 08/07/19 06:17: POC Glucose 149 H 08/07/19 11:50: Urine Color Yellow, Urine Clarity Sl. Cloudy, Urine pH 7.0, Ur Specific Staples 1.005, Urine Protein 30 H, Urine Glucose (UA) 1000 H, Urine Ketones Negative, Urine Occult Blood 10 H, Urine Nitrite Negative, Urine Bilirubin Negative, Urine Urobilinogen Normal, Ur Leukocyte Esterase 500 H, Urine RBC 0 SEEN, Urine WBC 5-10 SEEN, Ur Squamous Epith Cells 0 SEEN, Urine Bacteria 0 SEEN, Urine Mucus 0 SEEN, Urine Yeast 2+ 08/07/19 12:28: POC Glucose 176 H 08/07/19 12:30: Sodium 141, Potassium 3.8, Chloride 104, Carbon Dioxide 34.0 H, Anion Gap 3 L, BUN 33 H, Creatinine 1.64 H, Estim Creat Clear Calc 29.04, Est GFR (MDRD) Af Amer 41 L, Est GFR (MDRD) Non-Af 34 L, BUN/Creatinine Ratio 20.1 H , Glucose 176 H, Calcium 9.3 08/07/19 12:30: WBC 24.7 H, RBC 3.72 L, Hgb 12.0, Hct 38.7, MCV 104.0 H, MCH 32.3 H, MCHC 31.0 L, RDW Std Deviation 58.4 H, RDW Coeff of Harper 15.8 H, Plt Count 515 H, MPV 9.4, Immature Gran % (Auto) 2.600 H, Neut % (Auto) 73.5 H, Lymph % (Auto) 11.3 L, Payette % (Auto) 11.9 H, Eos % (Auto) 0.1, Baso % (Auto) 0.6, Absolute Neuts (auto) 18.1 H, Absolute Lymphs (auto) 2.80, Nucleated RBC % 0.3 08/07/19 13:00: Lactic Acid 1.6 Current Medications Acetaminophen (Tylenol) 1,000 mg PO Q6H PRN PRN PRN Reason: Pain Score 1-3/10 Last Admin: 08/04/19 06:49 Dose: 1,000 mg Documented by: [facility]oprim) [facility] Last Admin: 08/07/19 08:19 Dose: 300 mg Documented by: Atorvastatin Calcium (Lipitor) 80 mg PO QHS [facility] Last Admin: 08/06/19 21:41 Dose: 80 mg Documented by: Benztropine Mesylate (Cogentin) 0.5 mg PO QHS [facility] Last Admin: 08/06/19 21:40 Dose: 0.5 mg Documented by: Bisacodyl (Dulcolax) 10 mg PO DAILY PRN PRN Reason: Constipation Last Admin: 08/01/19 13:36 Dose: 10 mg Documented by: Buspirone HCl (Buspar) 10 mg PO BID [facility] Last Admin: 08/07/19 17:04 Dose: Not Given Documented by: Calamine/Phenol (Calmoseptine Ointment) 1 applic TOPICAL BID [facility]; Protocol Last Admin: 08/07/19 17:27 Dose: 1 applicatio Documented by: Cyanocobalamin (Vitamin B12) 1,000 mcg PO DAILY [facility] Last Admin: 08/07/19 07:01 Dose: 1,000 mcg Documented by: Empagliflozin (Jardiance) 10 mg PO DAILY [facility] Last Admin: 08/07/19 07:00 Dose: 10 mg Documented by: Furosemide (Lasix) 40 mg PO BID [facility] Last Admin: 08/07/19 07:02 Dose: 40 mg Documented by: Gabapentin (Neurontin) 600 mg PO 4X/DAY [facility] Last Admin: 08/07/19 17:04 Dose: Not Given Documented by: Heparin Sodium (Beef Lung) () 50 units IV UD PRN PRN Reason: PICC Line Heparin Flush Hydroxyzine Pamoate (Vistaril Pamoate Capsule) 50 mg PO QHS PRN PRN PRN Reason: ANXIETY Last Admin: 08/03/19 03:24 Dose: 50 mg Documented by: Sodium Chloride () 1,000 mls @ 75 mls/hr IV .[id number] [facility] Last Admin: 08/07/19 14:04 Dose: 75 mls/hr Documented by: Sodium Chloride () 250 mls @ 15 mls/hr IV .[id number] PRN PRN Reason: Saline Flush Levothyroxine Sodium (Synthroid) 75 mcg PO DAILY [facility] Last Admin: 08/07/19 07:03 Dose: 75 mcg Documented by: Metoprolol Tartrate (Lopressor (Beta Armani)) 25 mg PO BID [facility] Last Admin: 08/07/19 07:07 Dose: 25 mg Documented by: Multivitamins/Minerals (Healthy Eyes) 1 capsule PO BID [facility] Last Admin: 08/07/19 17:04 Dose: Not Given Documented by: Nicotine (Nicoderm Cq (Pbkc)) 7 mg TRANSDERM. DAILY [facility] Last Admin: 08/07/19 07:01 Dose: 7 mg Documented by: Nutritional Formula ([place] - [place] Flavor) 1 packet PO BIDCM [facility] Last Admin: 08/07/19 17:04 Dose: Not Given Documented by: Nutritional Formula (Lactose Free) (Glucerna Shake) 120 ml PO 4X/DAY [facility] Last Admin: 08/07/19 17:04 Dose: Not Given Documented by: Nystatin (Mycostatin Powder) 1 applic TOPICAL 0600,2200 [facility]; Protocol Last Admin: 08/07/19 07:03 Dose: 1 applicatio Documented by: Olanzapine (Zyprexa) 20 mg PO DAILY [facility] Last Admin: 08/07/19 07:02 Dose: 20 mg Documented by: Oxycodone HCl (Oxyir) 10 mg PO Q4H PRN PRN PRN Reason: Pain Score 6-10/10 Last Admin: 08/06/19 06:35 Dose: 10 mg Documented by: Pantoprazole Sodium (Protonix) 40 mg PO DAILY [facility] Last Admin: 08/07/19 07:03 Dose: 40 mg Documented by: Polyethylene Glycol (Miralax) 17 gm PO DAILY [facility] Last Admin: 08/07/19 07:03 Dose: Not Given Documented by: Polysaccharide Iron Complex (Ferrex 150) 150 mg PO DAILYCM [facility] Last Admin: 08/07/19 08:19 Dose: 150 mg Documented by: Potassium Chloride (K-Dur) 20 meq PO TIDCM [facility] Last Admin: 08/07/19 17:04 Dose: Not Given Documented by: Pramipexole Dihydrochloride (Mirapex) 0.125 mg PO QHS [facility] Last Admin: 08/06/19 21:41 Dose: 0.125 mg Documented by: Senna/Docusate Sodium (Senokot-S, Melia-Colace) 2 tablet PO BID [facility] Last Admin: 08/07/19 11:44 Dose: Not Given Documented by: Sodium Bicarbonate (Sodium Bicarbonate) 1,300 mg PO BID [facility] Last Admin: 08/07/19 07:02 Dose: 1,300 mg Documented by: Sodium Chloride () 10 - 40 ml IV UD PRN PRN Reason: Open End PICC Flush Last Admin: 08/05/19 22:04 Dose: 10 ml Documented by: Tramadol HCl (Ultram) 50 mg PO Q6H PRN PRN PRN Reason: Pain Score 4-5/10 Last Admin: 08/06/19 09:23 Dose: 50 mg Documented by: Trazodone HCl (Desyrel) 100 mg PO QHS [facility] Last Admin: 08/06/19 21:42 Dose: 100 mg Documented by: Tuberculin PPD (Tubersol, Aplisol, Ppd) 5 tu ID [id number] ONE Stop: 08/08/19 10:01 Venlafaxine HCl (Effexor Xr) 150 mg PO DAILY [facility] Last Admin: 08/07/19 07:01 Dose: 150 mg Documented by: Assessment/Plan All Active Problems Fall (Acute) Necrotizing soft tissue infection (Acute) Pressure ulcer, buttock, right, unstageable (Acute) Decreased renal function (Acute) ILIANA (acute kidney injury) (Acute) 63 year old female with below past medical history hospitalized for infected right buttock pressure ulcer, underwent incision and drainage 07/25/[address] Kaiser, complicated by acute on chronic kidney injury, intractable low back pain, admitted to TCU with debility, here for rehabilitation, strengthening, wound care, prior to discharge home with . * Fever - WBC 24.7, UA 500 leuk, blood culture pending, Lactic Acid 1.6. * Pneumonia - CXR shows bibasilar atelectasis and/or early infiltrate, Rocephin 1GM IV Q24H x 7 days, Azithromycin 500MG IV Q24H x 7 days. * Wheezing - Order Duoneb 3ML [id number], Albuterol 2.5MG Q2H PRN. * Acute kidney injury - BUN 33, Cr 1.64 2/2 to dehydration. * Dehydration - NS 1 liter IV bolus, then 75/hour. * Edema - Decrease Lasix to 40MG once daily.
--- NOTE | 2019-08-07 20:40 | NURSING ---
2034- Dr. Bennett notified of pt's lethargy and heart rate 112 per OBEY Russo. New orders received for additional 1 liter bolus. Rafaela made aware of new order.
[2019-08-07] MEDS: 0.9% Normal Saline 1,000 ML 500 ML IV (21:28)
[2019-08-08 05:23] VITALS: BP 124/49; PULSE 126
[2019-08-08] MEDS: Metoprolol Tartrate 25 MG Tablet PO ×2 (05:23→17:32)
[2019-08-08] MEDS: Venlafaxine XR 150 MG Capsule PO (05:24)
[2019-08-08] MEDS: Furosemide 40 MG Tablet PO (05:24)
[2019-08-08] MEDS: busPIRone 5 MG Tablet 10 MG PO ×2 (05:24→17:32)
[2019-08-08] MEDS: OLANZapine 10 MG Tablet 20 MG PO (05:25)
[2019-08-08] MEDS: Gabapentin 600 MG Tablet PO (05:25)
[2019-08-08] MEDS: Levothyroxine 75 MCG Tablet PO (05:26)
[2019-08-08] MEDS: 0.9% Normal Saline 1,000 ML 75 ML IV ×2 (05:36→20:13)
[2019-08-08 05:43] LABS: Absolute Lymphocyte Count 3.45 X10^3/uL (0.83-4.51); Absolute Neutrophil Count 19.6 X10^3/uL (2.0-7.7); Basophil# 0.12 X10^3/uL; Basophil% 0.4 % (0-1); Eosinophil# 0.16 X10^3/uL; Eosinophils% 0.6 % (0-5); Hematocrit 33.3 % (37-47); Lymphocyte # 3.45 X10^3/ul (4.0); Lymphocyte % 12.8 % (19-41); Mean Corpuscular Hgb 31.3 pg (27.0-32.0); Mean Corpuscular Volume 104.1 fL (81-99); Mean Platelet Vol. 9.6 fl (6.2-12.0); Monocyte# 2.62 X10^3/uL; Monocyte% 9.8 % (0-10); NRBC Flagged by Analyzer 0.2 % (0-5); Neutrophil # 19.62 X10^3/uL (2.7-7.7); Neutrophil % 73.1 % (47-70); POSITIVE DIFFERENTIAL YES; Platelet Count 468 K/mm3 (150-450); RBC Distribution Width CV 16.1 % (11.6-14.6); White Blood Count 26.9 K/mm3 (4.4-11.0)
[2019-08-08 05:52] LABS: Differential Indicated SCAN CRITERIA MET
[2019-08-08 06:00] LABS: Anion Gap 4 (5-15); BUN 25 mg/dL (7-18); Calcium,Total 7.9 mg/dL (8.5-10.1); Chloride 113 mmol/L (98-107); Creatinine, Serum 1.39 mg/dL (0.55-1.02); EST Glomerular Filtration Rate 41 mL/min (>60); Est Glom Filt Rate - Afr Amer 49 mL/min (>60); Estimated Creatinine Clearance 34.27 ml/min; Glucose 153 mg/dL (74-106); Potassium 3.4 mmol/L (3.5-5.1); Sodium Level 146 mmol/L (136-145)
[2019-08-08 06:31] LABS: Bedside Glucose 163 mg/dL (70-110)
--- NOTE | 2019-08-08 06:57 | NURSING ---
Patient has been awake all night. No signs of lethargy this shift. Patient has been alert to self only most of the night. Patient has not been able to be reoriented. Patient fought care tonight, grabbing onto staff and yelling out. Patient nice at one moment and then patient angry the next. Patient pulled of cpap in the middle of night. Nasal cannula 5 L on currently. Call light within reach, patient safety maintained.
[2019-08-08 07:26] VITALS: PULSE 98; RESP 18; O2SAT 92
[2019-08-08] MEDS: Ipratropium/Albuterol Sulfate 3 ML AMPUL.NEB INHALATION (07:26)
[2019-08-08] MEDS: Pantoprazole Sodium 40 MG Tablet PO (07:59)
[2019-08-08] MEDS: Empagliflozin 10 MG Tablet PO (07:59)
[2019-08-08] MEDS: Iron Polysaccharide Complex 150 MG CAPSULE PO (07:59)
[2019-08-08] MEDS: Sodium Bicarbonate 650 MG Tablet 1300 MG PO (07:59)
[2019-08-08] MEDS: Glucerna Shake 120 ML LIQUID PO ×2 (08:04→11:49)
--- NOTE | 2019-08-08 08:21 | NURSING ---
attempted to administer morning medications. pt only willing to take part of them, including on 1 bicarbonate pill. She refused her potassium and healthy eye pill.
[2019-08-08] MEDS: Nystatin Powder 15gm Bottle 1 APPLIC TOPICAL ×2 (09:22→20:15)
[2019-08-08] MEDS: Menthol/Lanolin/Calamine/Znox 113 GM Tube 1 APPLIC TOPICAL ×2 (09:23→17:41)
--- NOTE | 2019-08-08 10:13 | CASEMGMT ---
Social Work Reviewed and agreed with social work documentation on this date. Sonam Haq, HAND II BLOCKER INSPECTOR PACKER GLASS CONTAINER
[2019-08-08] MEDS: Ceftriaxone 1 GM/50 ML BAG IV (10:43)
[2019-08-08 11:00] VITALS: RESP 18
[2019-08-08 13:43] LABS: Pathologist Review Reviewed
[2019-08-08 13:45] LABS: Pathologist Review Reviewed
[2019-08-08] MEDS: Tuberculin,Purif.prot.deriv. 50 TU/ML Vial 5 ML ID (15:23)
[2019-08-08 16:00] VITALS: BP 114/61; PULSE 118; RESP 20; TEMP 36.3; O2SAT 95
[2019-08-08 17:32] VITALS: BP 114/61; PULSE 118
[2019-08-08] MEDS: DAKIN'S SOL HALF STRENGTH (=0.25%) 1 APPLIC TOPICAL (17:43)
[2019-08-08] MEDS: traZODone 100 MG Tablet PO (20:13)
[2019-08-08] MEDS: Benztropine 2 MG Tablet 0.5 MG PO (20:13)
[2019-08-08] MEDS: Atorvastatin Calcium 40 MG Tablet PO (20:14)
--- NOTE | 2019-08-09 00:58 | NURSING ---
Addendum entered by Kely Cade 08/09/19 01:15: IV Ativan given. Pt allowing staff to apply O2. 5L via NC. O2 94%. Original Note: Pt pulling CPAP mask off tore it into pieces. Pt refusing to put mask on or NC on. Around 0000 O2 82%. 1:1 ineffective. Multiple attempts made by numerous staff members. Dr. Bennett updated. New order for 1mg Ativan x1 IV.
[2019-08-09] MEDS: LORazepam 2 MG/ML Syringe 1 MG IV (01:04)
[2019-08-09 04:51] VITALS: PULSE 112
[2019-08-09] MEDS: Metoprolol Tartrate 25 MG Tablet PO (04:51)
[2019-08-09] MEDS: Venlafaxine XR 150 MG Capsule PO (04:54)
[2019-08-09] MEDS: Levothyroxine 75 MCG Tablet PO (04:54)
[2019-08-09] MEDS: OLANZapine 10 MG Tablet 20 MG PO (04:54)
[2019-08-09] MEDS: busPIRone 5 MG Tablet 10 MG PO (04:54)
[2019-08-09] MEDS: Menthol/Lanolin/Calamine/Znox 113 GM Tube 1 APPLIC TOPICAL (04:55)
[2019-08-09] MEDS: Nystatin Powder 15gm Bottle 1 APPLIC TOPICAL (04:55)
[2019-08-09 04:58] VITALS: BP 92/56; PULSE 112
[2019-08-09 06:15] LABS: Bedside Glucose 148 mg/dL (70-110)
[2019-08-09 06:45] VITALS: PULSE 100; RESP 22; O2SAT 86
[2019-08-09] MEDS: Ipratropium/Albuterol Sulfate 3 ML AMPUL.NEB INHALATION (06:45)
[2019-08-09] MEDS: Ceftriaxone 1 GM/50 ML BAG IV (09:34)
[2019-08-09] MEDS: 0.9% Saline Lock 10 ML Syringe IV (09:34)
[2019-08-09] MEDS: DAKIN'S SOL HALF STRENGTH (=0.25%) 1 APPLIC TOPICAL (09:43)
[2019-08-09 10:00] VITALS: PULSE 106; O2SAT 93
[2019-08-09] MEDS: 0.9% Normal Saline 1,000 ML 75 ML IV (10:10)
[2019-08-09] MEDS: Pantoprazole Sodium 40 MG Tablet PO (11:05)
--- NOTE | 2019-08-09 12:28 | NURSING ---
Addendum entered by Cinthya Gandara 08/09/19 13:57: CDCD sent, Dr shayla guerrero on results. new order to send pt to ER. report called at this time. Original Note: pt continues with confusion, unaware of where she is at or time. reoriented w/out change in responses. pt very poor appetite today, refused brkfst and lunch today. drinking lots of water from her pitcher. IVF continues as ordered to RT upper arm PICC line. Repositioned in bed on LT side. martinez intact, draining clear, straw color urine. Pleasant and cooperative, just confused. bed in low position and alarms in place. pt has not attempted to get out of bed this shift w/out assist.
[2019-08-09 13:27] LABS: Hematocrit 33.8 % (37-47); Hemoglobin 10.5 g/dL (12.0-15.0); Mean Corp Hgb Conc 31.1 g/dL (32-36); Mean Corpuscular Hgb 32.1 pg (27.0-32.0); Mean Corpuscular Volume 103.4 fL (81-99); Mean Platelet Vol. 9.4 fl (6.2-12.0); POSITIVE COUNT YES; POSITIVE DIFFERENTIAL YES; POSITIVE MORPHOLOGY YES; Platelet Count 474 K/mm3 (150-450); RBC Distribution Width CV 15.9 % (11.6-14.6); RBC Distribution Width SD 59.8 fl (35.1-43.9); Red Blood Count 3.27 M/mm3 (4.2-5.4); White Blood Count 26.4 K/mm3 (4.4-11.0)
[2019-08-09 13:32] LABS: Differential Indicated MANUAL DIFF
[2019-08-09 13:51] LABS: Lymphocyte 12 % (19-41); Metamyelocyte 1 % (0-1); Monocyte 5 % (0-10); Neutrophil-Band 11 % (0-5); Neutrophil-Segmented 71 % (47-70); Total Cells Counted 100 (MANUAL DIFF)
[2019-08-09 13:52] LABS: Platelet Estimate ADEQUATE (ADEQ); Red Cell Morphology NORM C+C NORMAL (NORM C&C)
[2019-08-09 13:56] VITALS: BP 126/47; PULSE 108; RESP 20; TEMP 37.2; O2SAT 97
--- NOTE | 2019-08-09 14:01 | NURSING ---
Addendum entered by Cinthya Gandara 08/09/19 14:42: assisted pt via bed to ER at this time, on 5 liters of oxygen. disoriented, IVF infusing 75cc/hr per order. incont of mod amt yellow slimey stool, skin care provided. Original Note: attempted to call Shanique, no answer. spoke with pt sonDipak via phone number. Aware of order to send pt to ER and would keep them updated.
[2019-08-09 15:34] LABS: Absolute Neutrophil Count 21.6 X10^3/uL (2.0-7.7)
[2019-08-09 15:36] LABS: Absolute Lymphocyte Count 3.12 X10^3/uL (0.83-4.51)
--- NOTE | 2019-08-09 20:01 | DCINST_ITS ---
You will use the following diet at home:: No restrictions, Regular Your food should be the consistency of: Regular Your liquids should be the consistency of: Regular/Thin Discharge Activity: Return to Normal Activity, Use Walker Weight Bearing Status: Weight bearing as tolerated Call your doctor if you observe: Fever of 101 or Higher, Inability to urinate, Inability to have a bowel movement, Shortness of breath, Chest pain, Uncontrol led pain Allergies/Adverse Reactions: Allergies Iodinated Contrast Media [CONTRASTS] Allergy (Verified 07/24/19 16:36) Hives morphine Adverse Reaction (Verified 07/24/19 16:36) Nausea Medications to take at Discharge Allopurinol 300 mg PO DAILY 07/22/19 Benztropine Mesylate 0.5 mg PO QHS 07/22/19 Buspirone HCl 10 mg PO BID 07/22/19 Cyanocobalamin (Vitamin B-12) [Vitamin B-12] 1,000 mcg PO DAILY 07/22/19 Empagliflozin [Jardiance] 10 mg PO DAILY 07/22/19 Furosemide 40 mg PO BID 07/22/19 Gabapentin [Neurontin] 600 mg PO 4X/DAY 07/22/19 Hydroxyzine HCl 50 mg PO QHS PRN PRN 07/22/19 Levothyroxine [Synthroid] 75 mcg PO DAILY 07/22/19 Olanzapine 20 mg PO DAILY 07/22/19 Omeprazole 40 mg PO DAILY 07/22/19 Potassium Chloride [K-Dur] 10 meq PO BID 07/22/19 Pramipexole Di-HCl [Mirapex] 0.125 mg PO QHS 07/22/19 Psyllium Husk [Fiber] 4 cap PO DAILY 07/22/19 Rosuvastatin Calcium 40 mg PO QHS 07/22/19 Sodium Bicarbonate 2 tab PO BID 07/22/19 Venlafaxine HCl [Venlafaxine HCl ER] 150 mg PO DAILY 07/22/19 traZODone [Desyrel] 25 mg PO QHS 07/22/19 Aspirin [Aspir 81] 81 mg PO QHS 07/24/19 Cholecalciferol (Vitamin D3) [Vitamin D3] 5,000 unit PO DAILY 07/24/19 Metoprolol Tartrate 25 mg PO BID 07/24/19 Mv-Min/FA/Vit K/Lycop/Lut/Zeax [Ocuvite Eye Plus Multi Tablet] 1 tab PO TID 07/24/19 Acetaminophen [Tylenol Tablet] 650 mg PO Q6H PRN PRN tab 07/31/19 Cefdinir [Omnicef [equiv]] 300 mg PO Q12 07/31/19 Glucerna Shake 120 ml PO 4X/DAY 07/31/19 Heparin Injection (Vial) [Heparin Na] 5,000 unit SUBCUT Q12 07/31/19 Insulin Lispro [Humalog KwikPen] See Protocol SUBCUT ACHS 07/31/19 Nicotine [Nicoderm Cq] 7 mg TRANSDERM. DAILY 07/31/19 Oxycodone [Oxyir] 5 mg PO Q4H PRN PRN 3 Days #12 tab 07/31/19 Primary Care Physician: Darryl Bennett Chi, MD [COURTESY STAFF PHYSICIAN] - Please follow up with your Primary Care Physician in: 1 week. Test Results: Test results from this visit will be discussed in further detail at your follow- up appointment, if applicable.
--- NOTE | 2019-08-09 20:03 | PCM.DC.SUM ---
Discharge Date and Diagnosis Date of Admission: 07/31/19 Date of Discharge: 08/09/19 - Secondary Discharge Diagnosis Chronic Problems Gout (Chronic) Benzodiazepine dependence (Chronic) Neuropathic pain (Chronic) Insomnia (Chronic) Bipolar disorder (Chronic) Hypothyroidism (Chronic) Pressure ulcer of sacral region, stage 4 (Chronic) infected necrotizing right buttock and right sacral pressure sore, Stage IV Hypertension (Chronic) Hyperlipidemia (Chronic) Chronic back pain (Chronic) Impaired mobility (Chronic) Severe obesity (BMI 35.0-35.9 with comorbidity) (Chronic) CKD (chronic kidney disease), stage III (Chronic) Diabetes mellitus, type II (Chronic) Anxiety and depression (Chronic) RLS (restless legs syndrome) (Chronic) Nicotine vapor product user (Chronic) Former tobacco use (Chronic) Macrocytic anemia (Chronic) Intractable low back pain (Chronic) Hospital Course and Treatment Imaging Results: Clinical Impression(s) from Imaging Studies Chest X-Ray 08/07/19 14:30 IMPRESSION: Increased markings at the lung bases suggestive of bibasilar atelectasis and/or early bilateral infiltrates. Follow-up is recommended. Electronically Signed: Alan Dennis, at 15:38 EST , Service support , KUB X-Ray 08/07/19 14:30 IMPRESSION: No intestinal obstruction. Lower lumbar hardware fixation. Electronically Signed: Zahra Baarjas, at 17:00 EST Tel , Service support , Labs (Last 48 Hours) 08/07/19 08/08/19 08/08/19 12:30 05:30 05:30 WBC 26.9 H RBC 3.20 L Hgb 10.0 L Hct 33.3 L MCV 104.1 H MCH 31.3 MCHC 30.0 L RDW Std Deviation 59.0 H RDW Coeff of Harper 16.1 H Plt Count 468 H MPV 9.6 Immature Gran % (Auto) 3.300 H Neut % (Auto) 73.1 H Lymph % (Auto) 12.8 L [place] % (Auto) 9.8 Eos % (Auto) 0.6 Baso % (Auto) 0.4 Absolute Neuts (auto) 19.6 H Absolute Lymphs (auto) 3.45 Total Counted Neutrophils % (Manual) Band Neutrophils % Lymphocytes % (Manual) Monocytes % (Manual) Metamyelocytes % Nucleated RBC % 0.2 Differential Comment Diff Path Review Reviewed Reviewed Platelet Estimate RBC Morphology Sodium 146 H Potassium 3.4 L Chloride 113 H Carbon Dioxide 29.0 Anion Gap 4 L BUN 25 H Creatinine 1.39 H Estim Creat Clear Calc 34.27 Est GFR (MDRD) Af Amer 49 L Est GFR (MDRD) Non-Af 41 L BUN/Creatinine Ratio 18.0 Glucose 153 H Calcium 7.9 L POC Glucose 08/08/19 08/09/19 08/09/19 06:15 06:07 13:15 WBC 26.4 H RBC 3.27 L Hgb 10.5 L Hct 33.8 L MCV 103.4 H MCH 32.1 H MCHC 31.1 L RDW Std Deviation 59.8 H RDW Coeff of Harper 15.9 H Plt Count 474 H MPV 9.4 Immature Gran % (Auto) Neut % (Auto) Not Reportable Lymph % (Auto) [place] % (Auto) Eos % (Auto) Baso % (Auto) Absolute Neuts (auto) 21.6 H Absolute Lymphs (auto) 3.12 Total Counted 100 Neutrophils % (Manual) 71 H Band Neutrophils % 11 H Lymphocytes % (Manual) 12 L Monocytes % (Manual) 5 Metamyelocytes % 1 Nucleated RBC % Differential Comment Diff Path Review May foll Platelet Estimate ADEQUATE RBC Morphology NORM C+C Sodium Potassium Chloride Carbon Dioxide Anion Gap BUN Creatinine Estim Creat Clear Calc Est GFR (MDRD) Af Amer Est GFR (MDRD) Non-Af BUN/Creatinine Ratio Glucose Calcium POC Glucose 163 H 148 H Microbiology 08/07/19 11:50 Urine Catheter - Ahmadi Urine Culture - Preliminary GPC Poss Enterococcus sp Gram positive organism 08/07/19 13:00 Blood Culture (Wb) - Pic Blood Culture - Preliminary No growth in 48 hours. 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 Kaiser, complicated by acute on chronic kidney injury, intractable low back pain, admitted to TCU with debility, here for rehabilitation, strengthening, wound care, prior to discharge home with . 08/07/2019 Resident had low grade fever, with bibasilar infiltrates on Chest X-ray started on Ceftriaxone, Azithromycin, IV fluids, but WBC increased, and resident condition worsened, increasing confusion. 08/09/2019 Discharge to [facility] Emergency Department for evaluation, admission to hospital. - Physical Exam Vitals/I&O's: Vital Signs Temp Pulse Resp BP Pulse Ox 98.9 F 108 H 20 H 126/47 H 97 08/09/19 13:56 08/09/19 13:56 08/09/19 13:56 08/09/19 13:56 08/09/19 13:56 Oxygen Flow Rate (L/min) 5 Oxygen Delivery Method Nasal Cannula Weight: 90.673 kg Body Mass Index (BMI) 38.9 Intake and Output for Last 24 Hours 08/07/19 08/08/19 08/09/19 23:59 23:59 23:59 Intake Total 4313 / 4313 1750 / 1750 1770 / 1770 Output Total 2500 / 2500 1625 / 1625 600 / 600 Balance 1813 / 1813 125 / 125 1170 / 1170 Microbiology Past 72 Hours 08/07/19 11:50 Urine Catheter - Ahmadi Urine Culture - Preliminary GPC Poss Enterococcus sp Gram positive organism 08/07/19 13:00 Blood Culture (Wb) - Pic Blood Culture - Preliminary No growth in 48 hours. 08/08/19 22:08 Stool Stool Occult Blood (ARIANA) - Final Occult Blood Positive Laboratory Results 08/09/19 06:07: POC Glucose 148 H 08/09/19 13:15: WBC 26.4 H, RBC 3.27 L, Hgb 10.5 L, Hct 33.8 L, MCV 103.4 H, MCH 32.1 H, MCHC 31.1 L, RDW Std Deviation 59.8 H, RDW Coeff of Harper 15.9 H, Plt Count 474 H, MPV 9.4, Neut % (Auto) Not Reportable, Absolute Neuts (auto) 21.6 H, Absolute Lymphs (auto) 3.12, Total Counted 100, Neutrophils % (Manual) 71 H, Band Neutrophils % 11 H, Lymphocytes % (Manual) 12 L, Monocytes % (Manual) 5, Metamyelocytes % 1, Diff Path Review May foll, Platelet Estimate ADEQUATE, RBC Morphology NORM C+C Discharge Diet: No Restrictions Discharge Activity: Return to Normal Activity, Use Walker Weight Bearing Status: Weight bearing as tolerated Call your doctor if you observe: Fever of 101 or Higher, Inability to urinate, Inability to have a bowel movement, Shortness of breath, Chest pain, Uncontrolled pain Home Medications: Medications to take at Discharge Allopurinol 300 mg PO DAILY 07/22/19 Benztropine Mesylate 0.5 mg PO QHS 07/22/19 Buspirone HCl 10 mg PO BID 07/22/19 Cyanocobalamin (Vitamin B-12) [Vitamin B-12] 1,000 mcg PO DAILY 07/22/19 Empagliflozin [Jardiance] 10 mg PO DAILY 07/22/19 Furosemide 40 mg PO BID 07/22/19 Gabapentin [Neurontin] 600 mg PO 4X/DAY 07/22/19 Hydroxyzine HCl 50 mg PO QHS PRN PRN 07/22/19 Levothyroxine [Synthroid] 75 mcg PO DAILY 07/22/19 Olanzapine 20 mg PO DAILY 07/22/19 Omeprazole 40 mg PO DAILY 07/22/19 Potassium Chloride [K-Dur] 10 meq PO BID 07/22/19 Pramipexole Di-HCl [Mirapex] 0.125 mg PO QHS 07/22/19 Psyllium Husk [Fiber] 4 cap PO DAILY 07/22/19 Rosuvastatin Calcium 40 mg PO QHS 07/22/19 Sodium Bicarbonate 2 tab PO BID 07/22/19 Venlafaxine HCl [Venlafaxine HCl ER] 150 mg PO DAILY 07/22/19 traZODone [Desyrel] 25 mg PO QHS 07/22/19 Aspirin [Aspir 81] 81 mg PO QHS 07/24/19 Cholecalciferol (Vitamin D3) [Vitamin D3] 5,000 unit PO DAILY 07/24/19 Metoprolol Tartrate 25 mg PO BID 07/24/19 Mv-Min/FA/Vit K/Lycop/Lut/Zeax [Ocuvite Eye Plus Multi Tablet] 1 tab PO TID 07/24/19 Acetaminophen [Tylenol Tablet] 650 mg PO Q6H PRN PRN tab 07/31/19 Cefdinir [Omnicef [equiv]] 300 mg PO Q12 07/31/19 Glucerna Shake 120 ml PO 4X/DAY 07/31/19 Heparin Injection (Vial) [Heparin Na] 5,000 unit SUBCUT Q12 07/31/19 Insulin Lispro [Humalog KwikPen] See Protocol SUBCUT ACHS 07/31/19 Nicotine [Nicoderm Cq] 7 mg TRANSDERM. DAILY 07/31/19 Oxycodone [Oxyir] 5 mg PO Q4H PRN PRN 3 Days #12 tab 07/31/19 Primary Care Physician: Darryl Bennett Chi, MD [COURTESY STAFF PHYSICIAN] - Please follow up with your Primary Care Physician in: 1 week. Disposition: Acute care Hospital Minutes spent on discharge:: 30 Patient Condition:: Guarded Medical Necessity - Tobacco Use Smoking Status: Former smoker Tobacco Use: Secondhand, Cigarettes, Vapor Meaningful Use Info Meaningful Use Diagnoses (Choose all that apply): None applicable
[2019-08-11 13:22] LABS: Pathologist Review Reviewed
--- NOTE | 2019-08-11 13:39 | CASEMGMT ---
Social Work Reviewed and agreed with social work administration intern documentation on this date. Sonam Haq, [employer] CAM SPECIALIST
== END 2019-08-09 17:58 | disposition short-term general hospital (02) | DRG 949 ==
PROVIDERS: Admitting Provider Family Medicine Geriatric Medicine; PCP Internal Medicine; Referring Provider Family Medicine Geriatric Medicine; Visit Provider Family Medicine Geriatric Medicine
DX: Z48.817 Encounter for surgical aftercare following surgery on the skin and subcutaneous tissue (principal); L89.314 Pressure ulcer of right buttock, stage 4; L89.154 Pressure ulcer of sacral region, stage 4; E11.52 Type 2 diabetes mellitus with diabetic peripheral angiopathy with gangrene; M86.9 Osteomyelitis, unspecified; F13.20 Sedative, hypnotic or anxiolytic dependence, uncomplicated; N17.9 Acute kidney failure, unspecified; N18.3 Chronic kidney disease, stage 3 (moderate); E11.22 Type 2 diabetes mellitus with diabetic chronic kidney disease; E78.5 Hyperlipidemia, unspecified; I12.9 Hypertensive chronic kidney disease with stage 1 through stage 4 chronic kidney disease, or unspecified chronic kidney disease; F41.9 Anxiety disorder, unspecified; H35.30 Unspecified macular degeneration; E03.9 Hypothyroidism, unspecified; G25.81 Restless legs syndrome; K21.9 Gastro-esophageal reflux disease without esophagitis; F31.9 Bipolar disorder, unspecified; B35.4 Tinea corporis; E11.69 Type 2 diabetes mellitus with other specified complication; F17.210 Nicotine dependence, cigarettes, uncomplicated; E87.6 Hypokalemia; E66.01 Morbid (severe) obesity due to excess calories; G89.29 Other chronic pain; M1A.9XX0 Chronic gout, unspecified, without tophus (tophi); Z68.38 Body mass index [BMI] 38.0-38.9, adult
CPT/HCPCS: 36415; 71045; 74018; 80048; 81001; 82274; 82962; 83605; 85014; 85018; 85025; 87040; 87077; 87086; 87088; 87186; 92507; 92523; 92526; 92610; 94640; 94660; 97110; 97116; 97162; 97166; 97530; 97535; 97802; 99406; J7030; A4216

== ENCOUNTER 2019-08-09 14:36 | Inpatient (IN) | payer MEDICARE, OTHER, SELFPAY ==
[2019-07-31 14:48] VITALS: BMI 38.9
[2019-08-09] VITALS (13 sets, daily range): BP systolic 76–122; BP diastolic 49–94; PULSE 112–129; RESP 12–27; TEMP 36.7–37.3; O2SAT 87–98; BMI 37.3; BMI 36.9
--- NOTE | 2019-08-09 15:11 | RAD_ITS ---
STUDY: X-RAY CHEST REASON FOR EXAM: Female, 63 years old. Dyspnea. TECHNIQUE: Single AP portable view of the chest. COMPARISON: August 07, 2019. FINDINGS: Stable right PICC line. The lungs are hypoexpanded. There are stable bibasilar atelectatic versus infiltrative changes. There is no demonstrated pleural abnormality. There is borderline cardiomegaly. Normal mediastinum and barrera. Normal visualized pulmonary arteries. Normal visualized aortic arch and descending thoracic aorta. The thoracic spine is obscured by the mediastinum. Normal visualized ribs, clavicles, and shoulders. There is no demonstrated abnormality of the visualized soft tissue structures of the upper abdomen. RAD/Chest 1 View (Portable) IMPRESSION: No major interval change. Electronically Signed: Jimmy Lara DO at 16:14 EST Tel [phone], Service support ,
--- NOTE | 2019-08-09 15:11 | EKG12_ITS ---
Test Reason : Blood Pressure : / mmHG Vent. Rate : 114 BPM Atrial Rate : 114 BPM P-R Int : 130 ms QRS Dur : 084 ms QT Int : 324 ms P-R-T Axes : 038 036 -37 degrees QTc Int : 446 ms Sinus tachycardia Inferior-posterior infarct , age undetermined Abnormal ECG Confirmed by RIMMA MARES, BERNABE ([id number]), greeting card editor [employer] JULIAN ([id number]) on 08/12/2019 8:30:46 AM Referred By: JOHN Confirmed By:BERNABE SHANKS MD
--- NOTE | 2019-08-09 15:33 | ED.VISSUMM ---
- ER Visit Summary Date of Service: 08/09/19 Chief Complaint: Mental status change History of Present Illness: The patient is a 63 F 3 of diabetes, hypertension, chronic kidney disease, bipolar. Patient was sent down from the TCU due to decreasing mental status. Patient is currently being treated for pneumonia and is on IV antibiotics. They are concerned that she is getting worse and may need to be admitted. She was recently hospitalized for an incision and drainage of pressure ulcer in the buttock. Patient herself is a very poor informant due to her confusion and is really unable to give me any accurate history. Physical Examination: Older female vital signs stable. Pulse ox is 97% on 5 L she is hypoxic without it. H EENT exam dry mucous members. No signs of trauma. Pupils round react light. Neck nontender no lymphadenopathy no meningismus. Lungs clear to auscultation but diminished in both bases. Heart tachycardic rate about 110 no murmur. Chest wall nontender. Abdomen soft nontender. Normal bowel sounds no peritoneal signs. Patient is moving all 4 extremities. Calves are nontender without edema or cords. Neurologically she is awake. She is alert. She answers questions her answers are not accurate. She is confused. But she is moving all 4 extremities. There is no focal motor deficits. Test Results: CBC shows a white count 20,900. Hemoglobin 10.6 which is her baseline. No bands. Chemistries BUN 23 creatinine 1.16. Normal gap. INR normal 1. Troponin normal. Lactic acid 1.4. Blood cultures were sent. She is currently on antibiotics prior to our blood cultures those were being given to her while she was in TCU. EKG sinus tach 114 no acute signs of SD. Chest x-ray suspicious for right lower lobe pneumonia and/or atelectasis bibasilar versus bibasilar infiltrates. Emergency Department Course and Treatment: Older female currently being treated for pneumonia and admitted to the TCU. Has worsening mental status. Will receive IV fluids due to clinical dehydration and be worked up. Treatment Plan: To be treated for sepsis and pneumonia. With her pressure now dropping below 100 even though her lactic acid is only 1.4 she is getting 3 L of normal saline. Be started on antibiotics for healthcare acquired pneumonia and sepsis. Zosyn, vancomycin and Levaquin. I very spoken to the hospitalist. Currently I placed the admission to the ICU the hospitalist may do PCU that will be their decision. Disposition: [place] Impression: Worsening mental status with confusion Sepsis Proxy requiring O2 Currently being treated for pneumonia on IV antibiotics History of type 2 diabetes History of chronic kidney disease History of psychiatric illness This note was generated with [employer] dictation software. It may contain incorrect words, spelling, and punctuation that were not noted in review of the chart prior to signing ED Disposition - Plan for ED Patient: Referrals: Zaira Donaldson, [Primary Care Provider] -
[2019-08-09] MEDS: 0.9% Normal Saline 1,000 ML 1000 ML IV (16:09)
[2019-08-09 16:21] LABS: Absolute Lymphocyte Count 3.81 X10^3/uL (0.83-4.51); Absolute Neutrophil Count 20.9 X10^3/uL (2.0-7.7); Basophil# 0.19 X10^3/uL; Basophil% 0.7 % (0-1); Differential Indicated SCAN CRITERIA MET; Hematocrit 34.7 % (37-47); Hemoglobin 10.6 g/dL (12.0-15.0); Lymphocyte # 3.81 X10^3/ul (4.0); Lymphocyte % 13.2 % (19-41); Mean Corp Hgb Conc 30.5 g/dL (32-36); Mean Corpuscular Hgb 31.4 pg (27.0-32.0); Mean Corpuscular Volume 102.7 fL (81-99); Mean Platelet Vol. 9.6 fl (6.2-12.0); Monocyte# 2.33 X10^3/uL; Monocyte% 8.1 % (0-10); NRBC Flagged by Analyzer 0.2 % (0-5); Neutrophil # 20.89 X10^3/uL (2.7-7.7); Neutrophil % 72.2 % (47-70); POSITIVE DIFFERENTIAL YES; POSITIVE MORPHOLOGY YES; Platelet Count 520 K/mm3 (150-450); RBC Distribution Width CV 15.9 % (11.6-14.6); RBC Distribution Width SD 59.5 fl (35.1-43.9); Red Blood Count 3.38 M/mm3 (4.2-5.4); White Blood Count 28.9 K/mm3 (4.4-11.0)
[2019-08-09 16:34] LABS: Anion Gap 6 (5-15); BUN 23 mg/dL (7-18); BUN/Creat Ratio 19.8 RATIO (10-20); Calcium,Total 8.4 mg/dL (8.5-10.1); Chloride 112 mmol/L (98-107); Creatinine, Serum 1.16 mg/dL (0.55-1.02); EST Glomerular Filtration Rate 50 mL/min (>60); Est Glom Filt Rate - Afr Amer 61 mL/min (>60); Estimated Creatinine Clearance 41.06 ml/min; Glucose 114 mg/dL (74-106); Potassium 3.4 mmol/L (3.5-5.1); Sodium Level 143 mmol/L (136-145)
[2019-08-09 16:41] LABS: Differential Comment SCANNED
[2019-08-09 16:58] LABS: International Normalized Ratio 1.4; Lactic Acid 1.4 mmol/L (0.4-1.9); Prothrombin Time (Protime)PT. 17.3 SECONDS (11.7-14.9)
--- NOTE | 2019-08-09 17:06 | PCM.HP.STD ---
Problem List (1) Gout Status: Chronic (2) Benzodiazepine dependence Status: Chronic (3) Neuropathic pain Status: Chronic (4) Insomnia Status: Chronic (5) Bipolar disorder Status: Chronic (6) Hypothyroidism Status: Chronic (7) Pressure ulcer of sacral region, stage 4 Status: Chronic Comment: infected necrotizing right buttock and right sacral pressure sore, Stage IV (8) Hypertension Status: Chronic Qualifiers: (9) Hyperlipidemia Status: Chronic Qualifiers: (10) Chronic back pain Status: Chronic Qualifiers: Back pain location: low back pain Back pain laterality: unspecified Sciatica presence: unspecified whether sciatica present Qualified Code(s): M54.5 - Low back pain; G89.29 - Other chronic pain (11) Impaired mobility Status: Chronic (12) Severe obesity (BMI 35.0-35.9 with comorbidity) Status: Chronic (13) CKD (chronic kidney disease), stage III Status: Chronic (14) Diabetes mellitus, type II Status: Chronic Qualifiers: (15) Anxiety and depression Status: Chronic (16) RLS (restless legs syndrome) Status: Chronic (17) Nicotine vapor product user Status: Chronic (18) Former tobacco use Status: Chronic (19) Macrocytic anemia Status: Chronic (20) Intractable low back pain Status: Chronic History of Present Illness Date of Admission: 08/09/19 Chief Complaint: Confusion, hypoxia. The patient is a 63 year old F who presents emergency room due to altered mental status and hypoxia. Patient was noted to have fever of 102, tachycardia and hypotension in TCU. Chest x-ray was obtained which showed pneumonia and patient was started on IV azithromycin and IV Rocephin 08/07/2019. Patient very confused upon examination in the emergency room and unable to provide HPI. She denies shortness of breath. She does report recent cough. She is restless and complains of pain in her buttock area where she has a known wound. Denies other specific complaints. Patient has a past medical history of type 2 diabetes mellitus, anxiety, depression, bipolar disorder, chronic kidney disease stage III, hypertension, hyperlipidemia, tobacco use via vaping. Patient had recent debridement of stage IV sacral pressure ulcer 07/25/[address] Kaiser, cultures grew Serratia marcescens at that time. Past Medical History Past Medical History (Chronic Problems): Chronic Problems Gout (Chronic) Benzodiazepine dependence (Chronic) Neuropathic pain (Chronic) Insomnia (Chronic) Bipolar disorder (Chronic) Hypothyroidism (Chronic) Pressure ulcer of sacral region, stage 4 (Chronic) infected necrotizing right buttock and right sacral pressure sore, Stage IV Hypertension (Chronic) Hyperlipidemia (Chronic) Chronic back pain (Chronic) Impaired mobility (Chronic) Severe obesity (BMI 35.0-35.9 with comorbidity) (Chronic) CKD (chronic kidney disease), stage III (Chronic) Diabetes mellitus, type II (Chronic) Anxiety and depression (Chronic) RLS (restless legs syndrome) (Chronic) Nicotine vapor product user (Chronic) Former tobacco use (Chronic) Macrocytic anemia (Chronic) Intractable low back pain (Chronic) Allergies Iodinated Contrast Media [CONTRASTS] Allergy (Verified 07/24/19 16:36) Hives morphine Adverse Reaction (Verified 07/24/19 16:36) Nausea Home Medications: Ambulatory Orders Medication Instructions Recorded Allopurinol 300 mg PO DAILY 07/22/19 Benztropine Mesylate 0.5 mg PO QHS 07/22/19 Buspirone HCl 10 mg PO BID 07/22/19 Cyanocobalamin (Vitamin B-12) 1,000 mcg PO DAILY 07/22/19 [Vitamin B-12] Empagliflozin [Jardiance] 10 mg PO DAILY 07/22/19 Furosemide 40 mg PO BID 07/22/19 Gabapentin [Neurontin] 600 mg PO 4X/DAY 07/22/19 Hydroxyzine HCl 50 mg PO QHS PRN PRN 07/22/19 Levothyroxine [Synthroid] 75 mcg PO DAILY 07/22/19 Olanzapine 20 mg PO DAILY 07/22/19 Omeprazole 40 mg PO DAILY 07/22/19 Potassium Chloride [K-Dur] 10 meq PO BID 07/22/19 Pramipexole Di-HCl [Mirapex] 0.125 mg PO QHS 07/22/19 Psyllium Husk [Fiber] 4 cap PO DAILY 07/22/19 Rosuvastatin Calcium 40 mg PO QHS 07/22/19 Sodium Bicarbonate 2 tab PO BID 07/22/19 Venlafaxine HCl [Venlafaxine HCl 150 mg PO DAILY 07/22/19 ER] traZODone [Desyrel] 25 mg PO QHS 07/22/19 Aspirin [Aspir 81] 81 mg PO QHS 07/24/19 Cholecalciferol (Vitamin D3) 5,000 unit PO DAILY 07/24/19 [Vitamin D3] Metoprolol Tartrate 25 mg PO BID 07/24/19 Mv-Min/FA/Vit K/Lycop/Lut/Zeax 1 tab PO TID 07/24/19 [Ocuvite Eye Plus Multi Tablet] Acetaminophen [Tylenol Tablet] 650 mg PO Q6H PRN PRN tab 07/31/19 Cefdinir [Omnicef [equiv]] 300 mg PO Q12 07/31/19 Glucerna Shake 120 ml PO 4X/DAY 07/31/19 Heparin Injection (Vial) [Heparin 5,000 unit SUBCUT Q12 07/31/19 Na] Insulin Lispro [Humalog KwikPen] See Protocol SUBCUT ACHS 07/31/19 Nicotine [Nicoderm Cq] 7 mg TRANSDERM. DAILY 07/31/19 Oxycodone [Oxyir] 5 mg PO Q4H PRN PRN 3 Days #12 tab 07/31/19 Surgical History: appendectomy, cholecystectomy, hysterectomy, - - Lumbar spinal surgery with hardware, at least 4 previous back surgeries. Psychiatric History: Anxiety, Bipolar, Depression [employer] History: No pertinent [employer] history Lives: - - , currently at SNF Smoking Status: Former smoker Tobacco Use: Vapor Alcohol: None Drugs: None - *Family History Maternal History Items: - - Patient denies any market maternal or paternal family history including heart disease, diabetes, cancer. Paternal History Items: - - Patient denies any market maternal or paternal family history including heart disease, diabetes, cancer. Review of Systems Comment: Unable to obtain ROS due to significant confusion. Patient does report buttock pain and recent cough. Otherwise unable to obtain. VTE Information - Inpt Only VTE Present on Admission: No VTE Mechan Device Prophylaxis: None VTE Pharm Prophylaxis ordered?: Yes - Physical Exam Vitals/I&O's: Vital Signs Temp Pulse Resp BP Pulse Ox 99.1 F 122 H 22 H 86/68 L 96 08/09/19 16:10 08/09/19 16:10 08/09/19 16:10 08/09/19 16:10 08/09/19 16:10 Oxygen Flow Rate (L/min) 5 Oxygen Delivery Method Nasal Cannula Weight: 210 lb 8.663 oz Body Mass Index (BMI) 37.3 General: Confused, - - Restless HEENT: Atraumatic, PERRLA, EOMI, Normocephalic Oral: Dry Mucosa Neck: Supple, No JVD, Negative Carotid Bruits Lungs: Diminished, - - Crackles bilateral bases Cardiovascular: Regular Rhythm, Normal S1, Normal S2, No murmurs, Tachycardic Abdomen: Bowel Sounds Present, Soft, Non Tender, Non-Distended, Obese Extremities: No clubbing, No cyanosis, No edema, Capillary Refill Less than 3 Seconds Skin: No rashes, - - Stage IV sacral pressure ulcer, present on admission Musculoskeletal: No Tenderness to Palpation of Joints or Extremities Neurological: Cranial nerves II-XII grossly intact, Neuro grossly intact Psych/Mental Status: Restless Laboratory Results 08/09/19 16:00: WBC 28.9 H, RBC 3.38 L, Hgb 10.6 L, Hct 34.7 L, MCV 102.7 H, MCH 31.4, MCHC 30.5 L, RDW Std Deviation 59.5 H, RDW Coeff of Harper 15.9 H, Plt Count 520 H, MPV 9.6, Immature Gran % (Auto) 4.800 H, Neut % (Auto) 72.2 H, Lymph % (Auto) 13.2 L, [place] % (Auto) 8.1, Eos % (Auto) 1.0, Baso % (Auto) 0.7, Absolute Neuts (auto) 20.9 H, Absolute Lymphs (auto) 3.81, Nucleated RBC % 0.2, Differential Comment SCANNED, Diff Path Review November foll 08/09/19 16:00: PT 17.3 H, INR 1.4 08/09/19 16:00: Sodium 143, Potassium 3.4 L, Chloride 112 H, Carbon Dioxide 25.0, Anion Gap 6, BUN 23 H, Creatinine 1.16 H, Estim Creat Clear Calc 41.06, Est GFR (MDRD) Af Amer 61, Est GFR (MDRD) Non-Af 50 L, BUN/Creatinine Ratio 19.8, Glucose 114 H, Calcium 8.4 L, Troponin I < 0.015 08/09/19 16:00: Lactic Acid 1.4 Current Medications Sodium Chloride () 1,000 mls @ 999 mls/hr IV .Q1H1M ONE Stop: 08/09/19 17:43 Sodium Chloride () 1,000 mls @ 999 mls/hr IV .Q1H1M ONE Stop: 08/09/19 17:48 Piperacillin Sod/Tazobactam (Sod 4.5 gm/ Sodium Chloride) 100 mls @ 200 mls/hr IV X1 ONE Stop: 08/09/19 17:17 Levofloxacin (Levaquin Iv) 750 mg in 150 mls @ 100 mls/hr IV X1 ONE Stop: 08/09/19 18:17 Vancomycin HCl 1,500 mg/ (Sodium Chloride) 530 mls @ 250 mls/hr IV X1 ONE Stop: 08/09/19 19:07 Assessment/Plan 1. Severe sepsis secondary to bilateral healthcare associated pneumonia as well infected stage IV sacral pressure ulcer 2. Acute hypoxic respiratory failure secondary to healthcare associated pneumonia-IV vancomycin and IV cefepime. Obtain sputum sample. Albuterol and DuoNeb aerosols. Continue supplement oxygen to maintain O2 at or above 90%. Place BiPAP on admission. Send urine for strep and Legionella.7. 3. Infected stage IV sacral pressure ulcer-status post recent debridement due to necrotizing soft tissue infection 07/25/[address] Kaiser, cultures grew Serratia marcescens at that time. Obtain repeat culture. Consult Dr. Kaiser. Wet to dry dressings with dakins solution. Consult wound RN. Appear wound needs further debridement and given incontinence, patient may need considered for diverting colostomy. 4. Acute metabolic encephalopathy-secondary to #1/#2. Treat underlying processes as noted above. 5. Type 2 diabetes mellitus-every 6 Accu-Cheks with sliding scale insulin. 6. Anxiety/Depression/Bipolar disorder-continue olanzapine, venlafaxine, trazodone, BuSpar, hydroxyzine. 7. Chronic kidney disease stage III-stable, trend BMP. 8. Hypertension-hold BP regimen given hypotension on admission. 9. Hyperlipidemia-continue statin. 10. Hypothyroidism-continue home Synthroid regimen. 11. GERD-continue PPI. 12. Tobacco use via vaping-encourage cessation. DVT prophylaxis-heparin subcu This patient was seen by Ludy Singh NP-C under the supervision of Dr. Barriga.
[2019-08-09] MEDS: 0.9% Normal Saline 1,000 ML 999 ML IV ×2 (18:07→19:32)
--- NOTE | 2019-08-09 18:08 | ED.RN ---
attempted to call report to icu. rn not available at this time. stated rn would return call.
[2019-08-09] MEDS: levoFLOXacin IV 750 MG/150 ML BAG 100 MG IV (18:34)
[2019-08-09] MEDS: fentaNYL 100 MCG/2 ML Ampul 25 MCG IV (19:30)
[2019-08-09 19:45] LABS: AST(SGOT) 57 U/L (15-37); Alanine Aminotransfer ALT/SGPT 26 U/L (13-56); Albumin, Serum 1.4 g/dL (3.2-5.0); Alkaline Phosphatase 250 U/L (45-117); Bilirubin, Direct 0.26 mg/dL (0.00-0.30); Globulin 4.4 g/dL (2.2-4.2); Magnesium 2.4 mg/dL (1.6-2.6); Protein, Total 5.8 g/dL (6.4-8.2)
[2019-08-09 19:46] LABS: Phosphorus 2.1 mg/dL (2.5-4.9)
[2019-08-09 19:51] LABS: Bedside Glucose 134 mg/dL (70-110)
--- NOTE | 2019-08-09 19:52 | CPS ---
Dr. Barriga ok with patient wearing own PAP unit at this time. Called TCU and they stated they will be bringing her belongings including PAP unit to ICU soon.
[2019-08-09 19:56] LABS: Blood Gas Specimen Type VEN; O2 Delivery Device Room Air; SITE OTHER; Time Given 1951; VBG BASE EXCESS -2 mmol/L (-1.0-3.5); VBG Bicarbonate 22 mmol/L (22-26); VBG Oxygen Content 23 mmol/L (23-33); VBG PO2 33 mmHg (25-40); VBG SO2 68 % (50-70); VBG pCO2 32.1 mmHg (41-51); VBG pH 7.45 (7.32-7.42)
--- NOTE | 2019-08-09 20:00 | NURSING ---
Urinary catheter seal noted to be not intact on arrival to ICU.
[2019-08-09] MEDS: Haloperidol Lactate 5 MG/ML Vial IV (20:19)
--- NOTE | 2019-08-09 20:26 | CPS ---
Own PAP unit set up at bedside. Patient refusing PAP at this time.
--- NOTE | 2019-08-09 20:27 | PCM.RX.CS ---
Consult Pharmacy has been consulted to manage selected antiobiotic: Vancomycin Type of Consult: New start Suspected Infection: Sepsis Labs: Sodium 143 mmol/L (136-145) 08/09/19 16:00 Potassium 3.4 mmol/L (3.5-5.1) L 08/09/19 16:00 Chloride 112 mmol/L (98-107) H 08/09/19 16:00 Carbon Dioxide 25.0 mmol/L (21.0-32.0) 08/09/19 16:00 Anion Gap 6 (5-15) 08/09/19 16:00 BUN 23 mg/dL (7-18) H 08/09/19 16:00 Creatinine 1.16 mg/dL (0.55-1.02) H 08/09/19 16:00 Est GFR (MDRD) Af Amer 61 mL/min (>60) 08/09/19 16:00 Est GFR (MDRD) Non-Af 50 mL/min (>60) L 08/09/19 16:00 BUN/Creatinine Ratio 19.8 RATIO (10-20) 08/09/19 16:00 Glucose 114 mg/dL (74-106) H 08/09/19 16:00 Weight used for dosin.5 kg Estimated Creatinine Clearance: 54.57 Goal Trough: 15-20 mcg/mL Pharmacy Plan for Drug Dosing: Pharmacy Service will continue to monitor and adjust dosing as required. Medications Vancomycin IV Pharmacy to Dose (1 ea/ Sodium Chloride) 500 mls @ 250 mls/hr IV X1 PRN; Protocol PRN Reason: Rx to Dose Discontinued Medications Vancomycin HCl 1,500 mg/ (Sodium Chloride) 530 mls @ 250 mls/hr IV X1 ONE Stop: 08/09/19 19:07 Last Admin: 08/09/19 20:19 Dose: 250 mls/hr Documented by: Follow-Up Labs: Trough Vancomycin Labs to be done on [date and time ordered]: 08/11 @ 1453
[2019-08-09 21:09] LABS: M R Staph aureus DNA By PCR Negative (Negative); Probe Check PASS; Specimen Processing Control PASS
[2019-08-09] MEDS: busPIRone 5 MG Tablet 10 MG PO (23:51)
[2019-08-09] MEDS: Benztropine 2 MG Tablet 0.5 MG PO (23:53)
[2019-08-09] MEDS: Atorvastatin Calcium 80 MG Tablet PO (23:53)
[2019-08-09] MEDS: Aspirin E.C. 81 MG Tablet PO (23:53)
[2019-08-09] MEDS: traZODone 50 MG Tablet 25 MG PO (23:54)
[2019-08-10] VITALS (31 sets, daily range): BP systolic 98–148; BP diastolic 42–94; PULSE 111–145; RESP 16–33; TEMP 36.3–37.1; O2SAT 9–99
[2019-08-10 01:56] LABS: Bedside Glucose 110 mg/dL (70-110)
[2019-08-10] MEDS: fentaNYL 100 MCG/2 ML Ampul 25 MCG IV (02:53)
[2019-08-10 04:34] LABS: Mucous, Urine 0 SEEN /hpf (<or=2+); Red Blood Cells-Urine 0 SEEN /hpf (0-5)
[2019-08-10 04:38] LABS: Color, Urine Yellow (Yellow); Glucose, Dipstick 250 mg/dl (Normal); Ketone-Dipstick 5 mg/dl (Negative); Leukocyte Esterase-Dipstick 500 /ul (Negative); Nitrite-Dipstick Negative (Negative); Occult Blood-Urine 10 /ul (Negative); Protein-Dipstick 30 mg/dl (Negative); Urine Bilirubin Dipstick Negative (Negative); Urine Clarity Cloudy (Clear); Urine Urobilinogen Normal (Normal)
[2019-08-10 04:48] LABS: Bacteria 1+ /hpf (None Seen); Coarse Granular Cast 0-5 SEEN /lpf (0-5 /lpf); Squamous Epithelial Cells - UA 0-5 SEEN /hpf (5-10); White Blood Cells 25-50 SEEN /hpf (0-5); Yeast-Urine 3+ /hpf (None Seen)
[2019-08-10] MEDS: Haloperidol Lactate 5 MG/ML Vial IV ×2 (05:25→08:04)
[2019-08-10 05:44] LABS: Hematocrit 34.3 % (37-47); Hemoglobin 10.7 g/dL (12.0-15.0); Mean Corp Hgb Conc 31.2 g/dL (32-36); Mean Corpuscular Volume 102.7 fL (81-99); Mean Platelet Vol. 9.4 fl (6.2-12.0); POSITIVE COUNT YES; POSITIVE DIFFERENTIAL YES; POSITIVE MORPHOLOGY YES; Platelet Count 566 K/mm3 (150-450); RBC Distribution Width CV 15.7 % (11.6-14.6); RBC Distribution Width SD 58.1 fl (35.1-43.9); Red Blood Count 3.34 M/mm3 (4.2-5.4); White Blood Count 29.2 K/mm3 (4.4-11.0)
[2019-08-10 05:57] LABS: Differential Indicated MANUAL DIFF
[2019-08-10 06:06] LABS: International Normalized Ratio 1.6; Prothrombin Time (Protime)PT. 18.5 SECONDS (11.7-14.9)
[2019-08-10 06:08] LABS: Anion Gap 7 (5-15); BUN 19 mg/dL (7-18); BUN/Creat Ratio 17.1 RATIO (10-20); Chloride 116 mmol/L (98-107); Creatinine, Serum 1.11 mg/dL (0.55-1.02); EST Glomerular Filtration Rate 53 mL/min (>60); Est Glom Filt Rate - Afr Amer 64 mL/min (>60); Estimated Creatinine Clearance 41.03 ml/min; Glucose 120 mg/dL (74-106); Magnesium 2.1 mg/dL (1.6-2.6); Potassium 3.5 mmol/L (3.5-5.1); Sodium Level 144 mmol/L (136-145)
--- NOTE | 2019-08-10 06:17 | CON.PCM_ITS ---
Reason for Consult Date of Consultation: 08/10/19 Reason for Consultation: Severe sepsis History of Present Illness: The patient is a 63-year-old female, with a history as outlined below, who presented to the emergency department from the transitional care unit with encephalopathy. The patient was recently discharged from the hospital on July 31 after having been admitted for 1 week with infected sacral decubitus ulcers, for which she underwent surgical excision. She was being followed by Dr. Kaiser of surgery and maintained on cefdinir from an antimicrobial standpoint. On August 07, she was noted to have an elevated white blood cell count and a chest x-ray concerning for underlying pulmonary infectious process. The patient's urine culture from August 07 was positive for greater than 100,000 colony-forming units of enterococcus. On presentation to the emergency department, the patient was noted to be afebrile, tachycardic and tachypneic. She was requiring 5 L/min of supplemental oxygen to maintain appropriate saturations. Initial laboratory evaluation revealed an elevated white blood cell count to 29,000. Platelet count was elevated to 520,000. Chemistry profile was notable for a potassium of 3.4 and creatinine of 1.16. Lactate was within normal limits. Phosphorus was low at 2.1. MRSA screen was negative. CT chest revealed some dependent atelectasis along with a small right pleural effusion. The patient received supplemental IV fluids in the emergency department and was started on broad-spectrum antimicrobials. She was subsequently admitted to the medical intensive care unit for further management. Overnight, the patient has remained stable. She remains intermittently agitated and confused. She has been in sinus tachycardia over the course of the evening as well. Past Medical History Past Medical History (Chronic Problems): Chronic Problems Gout (Chronic) Benzodiazepine dependence (Chronic) Neuropathic pain (Chronic) Insomnia (Chronic) Bipolar disorder (Chronic) Hypothyroidism (Chronic) Pressure ulcer of sacral region, stage 4 (Chronic) infected necrotizing right buttock and right sacral pressure sore, Stage IV Hypertension (Chronic) Hyperlipidemia (Chronic) Chronic back pain (Chronic) Impaired mobility (Chronic) Severe obesity (BMI 35.0-35.9 with comorbidity) (Chronic) CKD (chronic kidney disease), stage III (Chronic) Diabetes mellitus, type II (Chronic) Anxiety and depression (Chronic) RLS (restless legs syndrome) (Chronic) Nicotine vapor product user (Chronic) Former tobacco use (Chronic) Macrocytic anemia (Chronic) Intractable low back pain (Chronic) Allergies Iodinated Contrast Media [CONTRASTS] Allergy (Verified 07/24/19 16:36) Hives morphine Adverse Reaction (Verified 07/24/19 16:36) Nausea Home Medications: Ambulatory Orders Medication Instructions Recorded Allopurinol 300 mg PO DAILY 07/22/19 Benztropine Mesylate 0.5 mg PO QHS 07/22/19 Buspirone HCl 10 mg PO BID 07/22/19 Cyanocobalamin (Vitamin B-12) 1,000 mcg PO DAILY 07/22/19 [Vitamin B-12] Empagliflozin [Jardiance] 10 mg PO DAILY 07/22/19 Furosemide 40 mg PO BID 07/22/19 Gabapentin [Neurontin] 600 mg PO 4X/DAY 07/22/19 Hydroxyzine HCl 50 mg PO QHS PRN PRN 07/22/19 Levothyroxine [Synthroid] 75 mcg PO DAILY 07/22/19 Olanzapine 20 mg PO DAILY 07/22/19 Omeprazole 40 mg PO DAILY 07/22/19 Potassium Chloride [K-Dur] 10 meq PO BID 07/22/19 Pramipexole Di-HCl [Mirapex] 0.125 mg PO QHS 07/22/19 Psyllium Husk [Fiber] 4 cap PO DAILY 07/22/19 Rosuvastatin Calcium 40 mg PO QHS 07/22/19 Sodium Bicarbonate 2 tab PO BID 07/22/19 Venlafaxine HCl [Venlafaxine HCl 150 mg PO DAILY 07/22/19 ER] traZODone [Desyrel] 25 mg PO QHS 07/22/19 Aspirin [Aspir 81] 81 mg PO QHS 07/24/19 Cholecalciferol (Vitamin D3) 5,000 unit PO DAILY 07/24/19 [Vitamin D3] Metoprolol Tartrate 25 mg PO BID 07/24/19 Mv-Min/FA/Vit K/Lycop/Lut/Zeax 1 tab PO TID 07/24/19 [Ocuvite Eye Plus Multi Tablet] Acetaminophen [Tylenol Tablet] 650 mg PO Q6H PRN PRN tab 07/31/19 Cefdinir [Omnicef [equiv]] 300 mg PO Q12 07/31/19 Glucerna Shake 120 ml PO 4X/DAY 07/31/19 Heparin Injection (Vial) [Heparin 5,000 unit SUBCUT Q12 07/31/19 Na] Insulin Lispro [Humalog KwikPen] See Protocol SUBCUT ACHS 07/31/19 Nicotine [Nicoderm Cq] 7 mg TRANSDERM. DAILY 07/31/19 Oxycodone [Oxyir] 5 mg PO Q4H PRN PRN 3 Days #12 tab 07/31/19 Surgical History: appendectomy, cholecystectomy, hysterectomy, - - Lumbar spinal surgery with hardware, at least 4 previous back surgeries. Psychiatric History: Anxiety, Bipolar, Depression [employer] History: No pertinent [employer] history Lives: - - , currently at [facility] Smoking Status: Former smoker Tobacco Use: Vapor Alcohol: None Drugs: None - *Family History Maternal History Items: - - Patient denies any market maternal or paternal family history including heart disease, diabetes, cancer. Paternal History Items: - - Patient denies any market maternal or paternal family history including heart disease, diabetes, cancer. Review of Systems Unable to obtain accurate/complete ROS d/t: Due to underlying encephalopathy and baseline psychiatric disorder Objective: The patient's most recent lab work, culture data and imaging studies have all been personally reviewed. Wound and urine cultures are pending. - Physical Exam Vitals/I&O's: Vital Signs Temp Pulse Resp BP Pulse Ox 97.4 F L 136 H 25 H 140/68 H 96 08/10/19 00:00 08/10/19 06:00 08/10/19 06:00 08/10/19 06:00 08/10/19 06:00 Oxygen Flow Rate (L/min) 3 Oxygen Delivery Method Nasal Cannula Weight: 210 lb 5.136 oz Body Mass Index (BMI) 36.9 Intake and Output for Last 24 Hours 08/08/19 08/09/19 08/10/19 23:59 23:59 23:59 Intake Total 3780 / 3880 200 / 200 Output Total 250 / 250 Balance 3780 / 3630 -50 / -50 General: Alert, Confused, Disoriented HEENT: Atraumatic, PERRLA, Normocephalic Oral: No Gingival or Mucosal Lesions/ Ulcerations Neck: Supple, No Nodes, Trachea Midline Lungs: Diminished, - - Poor inspiratory effort Cardiovascular: Normal S1, Normal S2, No murmurs, Tachycardic Abdomen: Bowel Sounds Present, Soft, Non Tender, Obese Extremities: No clubbing, No cyanosis, No edema Skin: Ulcer/ Wound - POA Musculoskeletal: No Muscle Wasting Lymphatic: No Cervical, Supraclavicular, or Inguinal Adenopathy Neurological: - - No focal deficits. Moves all extremities spontaneously. Psych/Mental Status: Agitated, Hallucinations, Impulsive, Restless Labs (Last 48 Hours) 08/09/19 08/09/19 08/09/19 16:00 16:00 16:00 WBC 28.9 H RBC 3.38 L Hgb 10.6 L Hct 34.7 L MCV 102.7 H MCH 31.4 MCHC 30.5 L RDW Std Deviation 59.5 H RDW Coeff of Harper 15.9 H Plt Count 520 H MPV 9.6 Immature Gran % (Auto) 4.800 H Neut % (Auto) 72.2 H Lymph % (Auto) 13.2 L Forrest % (Auto) 8.1 Eos % (Auto) 1.0 Baso % (Auto) 0.7 Absolute Neuts (auto) 20.9 H Absolute Lymphs (auto) 3.81 Nucleated RBC % 0.2 Differential Comment SCANNED Diff Path Review November foll PT 17.3 H INR 1.4 Specimen Type Sample Site VBG pH VBG pO2 VBG O2 Sat (Calc) VBG O2 Content VBG Base Excess POC Mix VBG pCO2 Pt Tmp O2 Delivery Device Blood Gas Notified Whom Blood Gas Notified Time Sodium 143 Potassium 3.4 L Chloride 112 H Carbon Dioxide 25.0 Anion Gap 6 BUN 23 H Creatinine 1.16 H Estim Creat Clear Calc 41.06 Est GFR (MDRD) Af Amer 61 Est GFR (MDRD) Non-Af 50 L BUN/Creatinine Ratio 19.8 Glucose 114 H Lactic Acid Calcium 8.4 L Phosphorus Magnesium Total Bilirubin Direct Bilirubin AST ALT Alkaline Phosphatase Troponin I < 0.015 Total Protein Albumin Globulin Urine Color Urine Clarity Urine pH Ur Specific [place] Urine Protein Urine Glucose (UA) Urine Ketones Urine Occult Blood Urine Nitrite Urine Bilirubin Urine Urobilinogen Ur Leukocyte Esterase Urine RBC Urine WBC Ur Squamous Epith Cells Urine Bacteria Coarse Granular Casts Urine Mucus Urine Yeast MRSA (PCR) POC Glucose 08/09/19 08/09/19 08/09/19 16:00 16:00 16:00 WBC RBC Hgb Hct MCV MCH MCHC RDW Std Deviation RDW Coeff of Harper Plt Count MPV Immature Gran % (Auto) Neut % (Auto) Lymph % (Auto) Forrest % (Auto) Eos % (Auto) Baso % (Auto) Absolute Neuts (auto) Absolute Lymphs (auto) Nucleated RBC % Differential Comment Diff Path Review PT INR Specimen Type Sample Site VBG pH VBG pO2 VBG O2 Sat (Calc) VBG O2 Content VBG Base Excess POC Mix VBG pCO2 Pt Tmp O2 Delivery Device Blood Gas Notified Whom Blood Gas Notified Time Sodium Potassium Chloride Carbon Dioxide Anion Gap BUN Creatinine Estim Creat Clear Calc Est GFR (MDRD) Af Amer Est GFR (MDRD) Non-Af BUN/Creatinine Ratio Glucose Lactic Acid 1.4 Calcium Phosphorus 2.1 L Magnesium 2.4 Total Bilirubin 0.30 Direct Bilirubin 0.26 AST 57 H ALT 26 Alkaline Phosphatase 250 H Troponin I Total Protein 5.8 L Albumin 1.4 L Globulin 4.4 H Urine Color Urine Clarity Urine pH Ur Specific [place] Urine Protein Urine Glucose (UA) Urine Ketones Urine Occult Blood Urine Nitrite Urine Bilirubin Urine Urobilinogen Ur Leukocyte Esterase Urine RBC Urine WBC Ur Squamous Epith Cells Urine Bacteria Coarse Granular Casts Urine Mucus Urine Yeast MRSA (PCR) POC Glucose 08/09/19 08/09/19 08/09/19 19:32 19:45 19:52 WBC RBC Hgb Hct MCV MCH MCHC RDW Std Deviation RDW Coeff of Harper Plt Count MPV Immature Gran % (Auto) Neut % (Auto) Lymph % (Auto) Forrest % (Auto) Eos % (Auto) Baso % (Auto) Absolute Neuts (auto) Absolute Lymphs (auto) Nucleated RBC % Differential Comment Diff Path Review PT INR Specimen Type ALCIDES Sample Site OTHER VBG pH 7.45 H VBG pO2 33 VBG O2 Sat (Calc) 68 VBG O2 Content 23 VBG Base Excess -2 L POC Mix VBG pCO2 Pt Tmp 32.1 L O2 Delivery Device Room Air Blood Gas Notified Whom [facility] Blood Gas Notified Time 1950 Sodium Potassium Chloride Carbon Dioxide Anion Gap BUN Creatinine Estim Creat Clear Calc Est GFR (MDRD) Af Amer Est GFR (MDRD) Non-Af BUN/Creatinine Ratio Glucose Lactic Acid Calcium Phosphorus Magnesium Total Bilirubin Direct Bilirubin AST ALT Alkaline Phosphatase Troponin I Total Protein Albumin Globulin Urine Color Urine Clarity Urine pH Ur Specific [place] Urine Protein Urine Glucose (UA) Urine Ketones Urine Occult Blood Urine Nitrite Urine Bilirubin Urine Urobilinogen Ur Leukocyte Esterase Urine RBC Urine WBC Ur Squamous Epith Cells Urine Bacteria Coarse Granular Casts Urine Mucus Urine Yeast MRSA (PCR) Negative POC Glucose 134 H 08/10/19 08/10/19 08/10/19 01:51 04:20 05:30 WBC RBC Hgb Hct MCV MCH MCHC RDW Std Deviation RDW Coeff of Harper Plt Count MPV Immature Gran % (Auto) Neut % (Auto) Lymph % (Auto) Forrest % (Auto) Eos % (Auto) Baso % (Auto) Absolute Neuts (auto) Absolute Lymphs (auto) Nucleated RBC % Differential Comment Diff Path Review PT INR Specimen Type Sample Site VBG pH VBG pO2 VBG O2 Sat (Calc) VBG O2 Content VBG Base Excess POC Mix VBG pCO2 Pt Tmp O2 Delivery Device Blood Gas Notified Whom Blood Gas Notified Time Sodium 144 Potassium 3.5 Chloride 116 H Carbon Dioxide 21.0 Anion Gap 7 BUN 19 H Creatinine 1.11 H Estim Creat Clear Calc 41.03 Est GFR (MDRD) Af Amer 64 Est GFR (MDRD) Non-Af 53 L BUN/Creatinine Ratio 17.1 Glucose 120 H Lactic Acid Calcium 8.0 L Phosphorus Magnesium 2.1 Total Bilirubin Direct Bilirubin AST ALT Alkaline Phosphatase Troponin I Total Protein Albumin Globulin Urine Color Yellow Urine Clarity Cloudy Urine pH 6.0 Ur Specific [place] 1.020 Urine Protein 30 H Urine Glucose (UA) 250 H Urine Ketones 5 H Urine Occult Blood 10 H Urine Nitrite Negative Urine Bilirubin Negative Urine Urobilinogen Normal Ur Leukocyte Esterase 500 H Urine RBC 0 SEEN Urine WBC 25-50 SEEN Ur Squamous Epith Cells 0-5 SEEN Urine Bacteria 1+ Coarse Granular Casts 0-5 SEEN Urine Mucus 0 SEEN Urine Yeast 3+ MRSA (PCR) POC Glucose 110 08/10/19 08/10/19 08/10/19 05:30 05:30 05:30 WBC 29.2 H RBC 3.34 L Hgb 10.7 L Hct 34.3 L MCV 102.7 H MCH 32.0 MCHC 31.2 L RDW Std Deviation 58.1 H RDW Coeff of Harper 15.7 H Plt Count 566 H MPV 9.4 Immature Gran % (Auto) Neut % (Auto) Not Reportable Lymph % (Auto) Forrest % (Auto) Eos % (Auto) Baso % (Auto) Absolute Neuts (auto) Pending Absolute Lymphs (auto) Nucleated RBC % Differential Comment Diff Path Review PT 18.5 H INR 1.6 Specimen Type Sample Site VBG pH VBG pO2 VBG O2 Sat (Calc) VBG O2 Content VBG Base Excess POC Mix VBG pCO2 Pt Tmp O2 Delivery Device Blood Gas Notified Whom Blood Gas Notified Time Sodium Potassium Chloride Carbon Dioxide Anion Gap BUN Creatinine Estim Creat Clear Calc Est GFR (MDRD) Af Amer Est GFR (MDRD) Non-Af BUN/Creatinine Ratio Glucose Lactic Acid Calcium Phosphorus Pending Magnesium Total Bilirubin Direct Bilirubin AST ALT Alkaline Phosphatase Troponin I Total Protein Albumin Globulin Urine Color Urine Clarity Urine pH Ur Specific [place] Urine Protein Urine Glucose (UA) Urine Ketones Urine Occult Blood Urine Nitrite Urine Bilirubin Urine Urobilinogen Ur Leukocyte Esterase Urine RBC Urine WBC Ur Squamous Epith Cells Urine Bacteria Coarse Granular Casts Urine Mucus Urine Yeast MRSA (PCR) POC Glucose Clinical Impression(s) from Imaging Studies Chest X-Ray 08/09/19 15:11 IMPRESSION: No major interval change. Electronically Signed: Jimmy Lara DO at 16:14 EST Tel [phone], Service support , Chest CT 08/10/19 19:00 IMPRESSION: Bilateral lower lobe atelectasis, right maternal left with mild right-sided pleural effusion. Mild ascites. No focal infiltrate or pleural effusion. Electronically Signed: Yohana Del Rio MD at 4:05 EST , Service support , Current Medications Acetaminophen (Tylenol) 650 mg PO Q6H PRN PRN PRN Reason: Pain Score 1-3/Temp > 100.7 F Acetaminophen (Tylenol) 650 mg RECTAL Q4H PRN PRN PRN Reason: Pain Score 1-3/Temp > 100.7 F Albuterol Sulfate (Ventolin Aerosols) 2.5 mg INHALATION Q2H PRN PRN PRN Reason: SOB/Wheezing Allopurinol (Zyloprim) 300 mg PO DAILY [facility] Aspirin (Ecotrin) 81 mg PO QHS [facility] Last Admin: 08/09/19 23:53 Dose: 81 mg Documented by: Atorvastatin Calcium (Lipitor) 80 mg PO QHS [facility] Last Admin: 08/09/19 23:53 Dose: 80 mg Documented by: Benztropine Mesylate (Cogentin) 0.5 mg PO QHS [facility] Last Admin: 08/09/19 23:53 Dose: 0.5 mg Documented by: Buspirone HCl (Buspar) 10 mg PO BID [facility] Last Admin: 08/09/19 23:51 Dose: 10 mg Documented by: Cholecalciferol (Vitamin D) 5,000 unit PO DAILY [facility] Cyanocobalamin (Vitamin B12) 1,000 mcg PO DAILY [facility] Enoxaparin Sodium (Lovenox) 40 mg SC DAILY [facility] Fentanyl Citrate (Sublimaze (100mcg Ampule)) 25 mcg IV Q1H PRN PRN PRN Reason: Pain Score 4-10/10 Last Admin: 08/10/19 02:53 Dose: 25 mcg Documented by: Glucagon () 1 mg IM .X1 PRN PRN Reason: Hypoglycemia Haloperidol Lactate (Haldol) 1 - 2 mg IV Q4H PRN PRN PRN Reason: SEVERE AGITATION Last Admin: 08/10/19 05:25 Dose: 2 mg Documented by: Levofloxacin (Levaquin Iv) 750 mg in 150 mls @ 100 mls/hr IV Q48 [facility] Aztreonam 2 gm/ Sodium (Chloride) 100 mls @ 150 mls/hr IV Q8 [facility] Last Admin: 08/10/19 05:25 Dose: 150 mls/hr Documented by: Vancomycin IV Pharmacy to Dose (1 ea/ Sodium Chloride) 500 mls @ 250 mls/hr IV X1 PRN; Protocol PRN Reason: Rx to Dose Dextrose (Dextrose 10%-Water) 250 mls @ 999 mls/hr IV .Q16M PRN; Protocol PRN Reason: HYPOGLYCEMIA Vancomycin HCl (Vancomycin) 1,000 mg in 200 mls @ 200 mls/hr IV Q12H [facility] Sodium Chloride () 250 mls @ 15 mls/hr IV .[id number] PRN PRN Reason: Saline Flush Sodium Chloride () 250 mls @ 15 mls/hr IV .[id number] PRN PRN Reason: Additional IVPB Infusion Insulin Human Lispro (Humalog Kwikpen (Bkc)) 0 unit SC Q6 [facility]; Protocol Last Admin: 08/10/19 01:45 Dose: Not Given Documented by: Levothyroxine Sodium (Synthroid) 75 mcg PO DAILY@0600 [facility] Olanzapine (Zyprexa) 20 mg PO DAILY [facility] Prochlorperazine Edisylate (Compazine Iv) 5 mg IV Q4H PRN PRN PRN Reason: Breakthrough Nausea/Vomiting Promethazine HCl (Phenergan Suppository) 12.5 mg RECTAL Q6H PRN PRN PRN Reason: Breakthrough Nausea/Vomiting Sodium Chloride () 10 - 40 ml IV UD PRN PRN Reason: Open End PICC Flush Sodium Chloride (0.9% Nacl (Sterile) Posiflush) 10 - 40 ml IV UD PRN PRN Reason: Port access or dressing change Trazodone HCl (Desyrel) 25 mg PO QHS [facility] Last Admin: 08/09/19 23:54 Dose: 25 mg Documented by: Venlafaxine HCl (Effexor Xr) 150 mg PO DAILY [facility] Assessment/Plan RECOMMENDATIONS: 1. Stop aztreonam and Levaquin. Start cefepime and continue vancomycin as ordered. 2. Await plastic surgery reevaluation. Continue local wound care. 3. Wean supplemental oxygen to maintain saturations at or above 90%. 4. Encourage incentive spirometer use. 5. Check BNP and consider obtaining echocardiogram. IMPRESSIONS: 1. Severe sepsis The patient has known sacral decubitus ulcerations and is being followed by plastic surgery. Recent cultures were reviewed. The patient's chest CT is less concerning for an underlying pulmonary infectious process. Wound and urine remain potential sources of infection for the patient. At this time, I would recommend transitioning her from aztreonam and Levaquin to cefepime. Vancomycin will be continued for now. The patient may eventually require diverting ostomy to encourage wound healing. Defer wound care management to surgery and wound care nurse. 2. Encephalopathy While the patient does have underlying psychiatric manifestations, I do suspect that her altered mentation is likely the consequence of her infectious processes. Continue baseline psychiatric medications. Antibiotics will be continued to address her infectious etiologies. 3. Obstructive sleep apnea The patient has known obstructive sleep apnea and currently has a CPAP machine at her bedside. However, she has been refusing to utilize the aforementioned therapy. 4. History of bipolar disorder/diabetes mellitus/hypertension/hyperlipidemia/obesity/chronic kidney disease Complicates care, management, recovery and prognosis. Continue home medications as indicated. This note was generated with [employer] dictation software. It may contain incorrect words, spelling, and punctuation that were not noted in checking the note before signing. Code Visit Inpatient E&M: 09005 Init Hosp L3
[2019-08-10 06:24] LABS: Lymphocyte 13 % (19-41); Monocyte 5 % (0-10); Myelocyte 1 (0-0); Neutrophil-Band 1 % (0-5); Neutrophil-Segmented 77 % (47-70); Promyelocyte 1 (0-0); Total Cells Counted 100 (MANUAL DIFF)
[2019-08-10 06:25] LABS: Basophil 1 % (0-1); Eosinophil 1 % (0-5); Platelet Estimate SLT INC (ADEQ); Red Cell Morphology NORM C+C NORMAL (NORM C&C)
[2019-08-10 06:26] LABS: Absolute Neutrophil Count 22.7 X10^3/uL (2.0-7.7); Neutrophil # 22.74 X10^3/uL (2.7-7.7)
[2019-08-10] MEDS: Levothyroxine 75 MCG Tablet PO (06:53)
[2019-08-10 06:56] LABS: Phosphorus 2.3 mg/dL (2.5-4.9)
[2019-08-10] MEDS: Vancomycin IV 1,000 MG/200 ML BAG 200 MG IV ×2 (07:32→21:17)
--- NOTE | 2019-08-10 08:12 | CPS ---
Pt refusing to wear BIPAP, continues to be confused.
[2019-08-10] MEDS: Morphine 2 MG/ML Syringe IV ×3 (10:29→23:20)
[2019-08-10] MEDS: 0.9% Saline Lock 10 ML Syringe IV ×3 (10:29→17:29)
[2019-08-10] MEDS: proCHLORPERazine 10 MG/2 ML Vial 5 MG IV (10:33)
--- NOTE | 2019-08-10 10:38 | NURSING ---
Pt continues to be very confused, having visual and auditory hallucinations. Pt is paranoid and states staff is trying to hurt her.
[2019-08-10 11:40] LABS: Bedside Glucose 125 mg/dL (70-110)
--- NOTE | 2019-08-10 13:44 | PN_ITS ---
<Ludy Singh - Last Filed: 08/10/19 14:38> Subjective: Patient seen and examined. Patient confused, restless. She denies pain currently. Per nursing, patient has been constantly restless and has not slept since admission. Patient talking to self in room and voices hallucinations. - Physical Exam Vitals/I&O's: Vital Signs Temp Pulse Resp BP Pulse Ox 98.8 F 140 H 24 H 132/94 H 97 08/10/19 11:57 08/10/19 12:59 08/10/19 12:59 08/10/19 12:59 08/10/19 12:59 Oxygen Flow Rate (L/min) 2 Oxygen Delivery Method Nasal Cannula Weight: 210 lb 5.136 oz Body Mass Index (BMI) 36.9 Intake and Output for Last 24 Hours 08/08/19 08/09/19 08/10/19 23:59 23:59 23:59 Intake Total 3780 / 3880 600 / 600 Output Total 750 / 750 Balance 3780 / 3630 -150 / -150 General: Confused, - - restless HEENT: Atraumatic, PERRLA, EOMI, Normocephalic Oral: Dry Mucosa Neck: Supple, No JVD, Negative Carotid Bruits Lungs: Clear to auscultation, Diminished Cardiovascular: Regular Rhythm, Normal S1, Normal S2, No murmurs, Tachycardic Abdomen: Bowel Sounds Present, Soft, Non Tender, Non-Distended, Obese Extremities: No clubbing, No cyanosis, No edema Skin: No rashes, - - Sacral stage IV decubitus ulcer, present on admission Musculoskeletal: No Tenderness to Palpation of Joints or Extremities Neurological: Cranial nerves II-XII grossly intact, Neuro grossly intact Psych/Mental Status: Anxious, Delusions, Impulsive, Restless Laboratory Results 08/09/19 16:00: WBC 28.9 H, RBC 3.38 L, Hgb 10.6 L, Hct 34.7 L, MCV 102.7 H, MCH 31.4, MCHC 30.5 L, RDW Std Deviation 59.5 H, RDW Coeff of Harper 15.9 H, Plt Count 520 H, MPV 9.6, Immature Gran % (Auto) 4.800 H, Neut % (Auto) 72.2 H, Lymph % (Auto) 13.2 L, [place] % (Auto) 8.1, Eos % (Auto) 1.0, Baso % (Auto) 0.7, Absolute Neuts (auto) 20.9 H, Absolute Lymphs (auto) 3.81, Nucleated RBC % 0.2, Di fferential Comment SCANNED, Diff Path Review November08/09/19 16:00: PT 17.3 H, INR 1.4 08/09/19 16:00: Sodium 143, Potassium 3.4 L, Chloride 112 H, Carbon Dioxide 25.0, Anion Gap 6, BUN 23 H, Creatinine 1.16 H, Estim Creat Clear Calc 41.06, Est GFR (MDRD) Af Amer 61, Est GFR (MDRD) Non-Af 50 L, BUN/Creatinine Ratio 19.8, Glucose 114 H, Calcium 8.4 L, Troponin I < 0.015 08/09/19 16:00: Lactic Acid 1.4 08/09/19 16:00: Magnesium 2.4, Total Bilirubin 0.30, Direct Bilirubin 0.26, AST 57 H, ALT 26, Alkaline Phosphatase 250 H, Total Protein 5.8 L, Albumin 1.4 L, Globulin 4.4 H 08/09/19 16:00: Phosphorus 2.1 L 08/09/19 19:32: MRSA (PCR) Negative 08/09/19 19:45: POC Glucose 134 H 08/09/19 19:52: Specimen Type ALCIDES, Sample Site OTHER, VBG pH 7.45 H, VBG pO2 33, VBG O2 Sat (Calc) 68, VBG O2 Content 23, VBG Base Excess -2 L, POC Mix VBG pCO2 Pt Tmp 32.1 L, O2 Delivery Device Room Air, Blood Gas Notified Whom KRISTEL MARES, Blood Gas Notified Time 195008/10/19 01:51: POC Glucose 110 08/10/19 04:20: Urine Color Yellow, Urine Clarity Cloudy, Urine pH 6.0, Ur Specific [place] 1.020, Urine Protein 30 H, Urine Glucose (UA) 250 H, Urine Ketones 5 H, Urine Occult Blood 10 H, Urine Nitrite Negative, Urine Bilirubin Negative, Urine Urobilinogen Normal, Ur Leukocyte Esterase 500 H, Urine RBC 0 SEEN, Urine WBC 25-50 SEEN, Ur Squamous Epith Cells 0-5 SEEN, Urine Bacteria 1+, Coarse Granular Casts 0-5 SEEN, Urine Mucus 0 SEEN, Urine Yeast 3+ 08/10/19 05:30: Sodium 144, Potassium 3.5, Chloride 116 H, Carbon Dioxide 21.0, Anion Gap 7, BUN 19 H, Creatinine 1.11 H, Estim Creat Clear Calc 41.03, Est GFR (MDRD) Af Amer 64, Est GFR (MDRD) Non-Af 53 L, BUN/Creatinine Ratio 17.1, Glucose 120 H, Calcium 8.0 L, Magnesium 2.1 08/10/19 05:30: WBC 29.2 H, RBC 3.34 L, Hgb 10.7 L, Hct 34.3 L, MCV 102.7 H, MCH 32.0, MCHC 31.2 L, RDW Std Deviation 58.1 H, RDW Coeff of Harper 15.7 H, Plt Count 566 H, MPV 9.4, Neut % (Auto) Not Reportable, Absolute Neuts (auto) 22.7 H, Absolute Lymphs (auto) 3.80, Total Counted 100, Neutrophils % (Manual) 77 H, Band Neutrophils % 1, Lymphocytes % (Manual) 13 L, Monocytes % (Manual) 5, Eosinophils % (Manual) 1, Basophils % (Manual) 1, Myelocytes % 1 H, Promyelocytes % 1 H, Diff Path Review Crystal field Platelet Estimate T INC, RBC Morphology NORM C+C 08/10/19 05:30: PT 18.5 H, INR 1.6 08/10/19 05:30: Phosphorus 2.3 L 08/10/19 11:38: POC Glucose 125 H Current Medications Acetaminophen (Tylenol) 650 mg PO Q6H PRN PRN PRN Reason: Pain Score 1-3/Temp > 100.7 F Acetaminophen (Tylenol) 650 mg RECTAL Q4H PRN PRN PRN Reason: Pain Score 1-3/Temp > 100.7 F Albuterol Sulfate (Ventolin Aerosols) 2.5 mg INHALATION Q2H PRN PRN PRN Reason: SOB/Wheezing Allopurinol (Zyloprim) 300 mg PO DAILY [facility] Last Admin: 08/10/19 10:37 Dose: Not Given Documented by: Aspirin (Ecotrin) 81 mg PO QHS [facility] Last Admin: 08/09/19 23:53 Dose: 81 mg Documented by: Atorvastatin Calcium (Lipitor) 80 mg PO QHS [facility] Last Admin: 08/09/19 23:53 Dose: 80 mg Documented by: Benztropine Mesylate (Cogentin) 0.5 mg PO QHS [facility] Last Admin: 08/09/19 23:53 Dose: 0.5 mg Documented by: Buspirone HCl (Buspar) 10 mg PO BID [facility] Last Admin: 08/10/19 10:37 Dose: Not Given Documented by: Cholecalciferol (Vitamin D) 5,000 unit PO DAILY [facility] Last Admin: 08/10/19 10:37 Dose: Not Given Documented by: Cyanocobalamin (Vitamin B12) 1,000 mcg PO DAILY [facility] Last Admin: 08/10/19 10:37 Dose: Not Given Documented by: Enoxaparin Sodium (Lovenox) 40 mg SC DAILY [facility] Last Admin: 08/10/19 10:37 Dose: Not Given Documented by: Glucagon () 1 mg IM .X1 PRN PRN Reason: Hypoglycemia Haloperidol Lactate (Haldol) 1 - 2 mg IV Q4H PRN PRN PRN Reason: SEVERE AGITATION Last Admin: 08/10/19 05:25 Dose: 2 mg Documented by: Vancomycin IV Pharmacy to Dose (1 ea/ Sodium Chloride) 500 mls @ 250 mls/hr IV X1 PRN; Protocol PRN Reason: Rx to Dose Dextrose (Dextrose 10%-Water) 250 mls @ 999 mls/hr IV .Q16M PRN; Protocol PRN Reason: HYPOGLYCEMIA Vancomycin HCl (Vancomycin) 1,000 mg in 200 mls @ 200 mls/hr IV Q12H [facility] Last Infusion: 08/10/19 08:35 Dose: Infused Documented by: Sodium Chloride () 250 mls @ 15 mls/hr IV .[id number] PRN PRN Reason: Saline Flush Sodium Chloride () 250 mls @ 15 mls/hr IV .[id number] PRN PRN Reason: Additional IVPB Infusion Cefepime HCl 2 gm/ Sodium (Chloride) 100 mls @ 200 mls/hr IV Q24 [facility] Last Infusion: 08/10/19 10:38 Dose: Infused Documented by: Insulin Human Lispro (Humalog Kwikpen (Bkc)) 0 unit SC Q6 [facility]; Protocol Last Admin: 08/10/19 11:50 Dose: Not Given Documented by: Levothyroxine Sodium (Synthroid) 75 mcg PO DAILY@0600 [facility] Last Admin: 08/10/19 06:53 Dose: 75 mcg Documented by: Olanzapine (Zyprexa) 20 mg PO DAILY [facility] Last Admin: 08/10/19 10:37 Dose: Not Given Documented by: Prochlorperazine Edisylate (Compazine Iv) 5 mg IV Q4H PRN PRN PRN Reason: Breakthrough Nausea/Vomiting Last Admin: 08/10/19 10:33 Dose: 5 mg Documented by: Promethazine HCl (Phenergan Suppository) 12.5 mg RECTAL Q6H PRN PRN PRN Reason: Breakthrough Nausea/Vomiting Sodium Chloride () 10 - 40 ml IV UD PRN PRN Reason: Open End PICC Flush Last Admin: 08/10/19 10:29 Dose: 20 ml Documented by: Sodium Chloride (0.9% Nacl (Sterile) Posiflush) 10 - 40 ml IV UD PRN PRN Reason: Port access or dressing change Sodium Hypochlorite (Dakins Solution 0.25% (1/2 Strength)) 1 applic TOPICAL BID [facility]; Protocol Trazodone HCl (Desyrel) 25 mg PO QHS [facility] Last Admin: 08/09/19 23:54 Dose: 25 mg Documented by: Venlafaxine HCl (Effexor Xr) 150 mg PO DAILY [facility] Last Admin: 08/10/19 10:37 Dose: Not Given Documented by: Medical Necessity - Tobacco Use Smoking Status: Former smoker Tobacco Use: Vapor Assessment/Plan 1. Severe sepsis secondary to infected stage IV sacral pressure ulcer and possible UTI-wound, urine and blood cultures pending. Urinalysis remarkable for 1+ bacteria, 500 leukocyte, 25-50 WBC. Continue IV cefepime and IV vancomycin pending cultures. 2. Acute hypoxic respiratory failure-improved, unclear etiology. Possibly secondary to bilateral atelectasis. CT of chest without focal infiltrate or pleural effusion. Continue supplement oxygen to maintain O2 at or above 90%. IS. Albuterol and DuoNeb aerosols. Pneumonia ruled out. 3. Infected stage IV sacral pressure ulcer-status post recent debridement due to necrotizing soft tissue infection 07/25/[address] Kaiser, cultures grew Serratia marcescens at that time. Repeat culture pending. Consult Dr. Kaiser. Wet to dry dressings with dakins solution. Consult wound RN. Given incontinence, patient may need considered for diverting colostomy. PRN pain regimen. 4. Acute metabolic encephalopathy-secondary to #1/#2. Treat underlying processes as noted above. Also suspect underlying psychiatric history contributing to current presentation. Currently refusing to take oral medications. IV Geodon x1. IV Haldol attempted overnight without improvement. 5. Type 2 diabetes myuvlvmi-Jvmu-Zlipr with sliding scale insulin. 6. Anxiety/Depression/Bipolar disorder-continue olanzapine, venlafaxine, trazodone, BuSpar, hydroxyzine. 7. Chronic kidney disease stage III-stable, trend BMP. 8. Hypertension-hold BP regimen given hypotension on admission. 9. Hyperlipidemia-continue statin. 10. Hypothyroidism-continue home Synthroid regimen. 11. GERD-continue PPI. 12. Tobacco use via vaping-encourage cessation. DVT prophylaxis-Lovenox subcu This patient was seen by SHERI Degroot under the supervision of Dr. Campos. <Jules Campos F - Last Filed: 08/10/19 18:07> - Physical Exam Vitals/I&O's: Vital Signs Temp Pulse Resp BP Pulse Ox 98.0 F 111 H 16 103/67 95 08/10/19 17:18 08/10/19 17:18 08/10/19 17:18 08/10/19 17:18 08/10/19 17:18 Oxygen Flow Rate (L/min) 3 Oxygen Delivery Method Nasal Cannula Weight: 210 lb 5.136 oz Body Mass Index (BMI) 36.9 Intake and Output for Last 24 Hours 08/08/19 08/09/19 08/10/19 23:59 23:59 23:59 Intake Total 3780 / 3880 720 / 720 Output Total 950 / 950 Balance 3780 / 3630 -230 / -230 Microbiology Past 72 Hours 08/09/19 Unknown Wound - Buttock Gram Stain - Final 08/09/19 Unknown Wound - Buttock Wound Culture - Preliminary Beta hemolytic organism Gram positive organism Laboratory Results 08/09/19 16:00: Magnesium 2.4, Total Bilirubin 0.30, Direct Bilirubin 0.26, AST 57 H, ALT 26, Alkaline Phosphatase 250 H, Total Protein 5.8 L, Albumin 1.4 L, Globulin 4.4 H 08/09/19 16:00: Phosphorus 2.1 L 08/09/19 19:32: MRSA (PCR) Negative 08/09/19 19:45: POC Glucose 134 H 08/09/19 19:52: Specimen Type ALCIDES, Sample Site OTHER, VBG pH 7.45 H, VBG pO2 33, VBG O2 Sat (Calc) 68, VBG O2 Content 23, VBG Base Excess -2 L, POC Mix VBG pCO2 Pt Tmp 32.1 L, O2 Delivery Device Room Air, Blood Gas Notified Whom KRISTEL MARES, Blood Gas Notified Time 195008/10/19 01:51: POC Glucose 110 08/10/19 04:20: Urine Color Yellow, Urine Clarity Cloudy, Urine pH 6.0, Ur Specific [place] 1.020, Urine Protein 30 H, Urine Glucose (UA) 250 H, Urine Ketones 5 H, Urine Occult Blood 10 H, Urine Nitrite Negative, Urine Bilirubin Negative, Urine Urobilinogen Normal, Ur Leukocyte Esterase 500 H, Urine RBC 0 SEEN, Urine WBC 25-50 SEEN, Ur Squamous Epith Cells 0-5 SEEN, Urine Bacteria 1+, Coarse Granular Casts 0-5 SEEN, Urine Mucus 0 SEEN, Urine Yeast 3+ 08/10/19 05:30: Sodium 144, Potassium 3.5, Chloride 116 H, Carbon Dioxide 21.0, Anion Gap 7, BUN 19 H, Creatinine 1.11 H, Estim Creat Clear Calc 41.03, Est GFR (MDRD) Af Amer 64, Est GFR (MDRD) Non-Af 53 L, BUN/Creatinine Ratio 17.1, Glucose 120 H, Calcium 8.0 L, Magnesium 2.1 08/10/19 05:30: WBC 29.2 H, RBC 3.34 L, Hgb 10.7 L, Hct 34.3 L, MCV 102.7 H, MCH 32.0, MCHC 31.2 L, RDW Std Deviation 58.1 H, RDW Coeff of Harper 15.7 H, Plt Count 566 H, MPV 9.4, Neut % (Auto) Not Reportable, Absolute Neuts (auto) 22.7 H, Absolute Lymphs (auto) 3.80, Total Counted 100, Neutrophils % (Manual) 77 H, Band Neutrophils % 1, Lymphocytes % (Manual) 13 L, Monocytes % (Manual) 5, Eosinophils % (Manual) 1, Basophils % (Manual) 1, Myelocytes % 1 H, Promyelocytes % 1 H, Diff Path Review Crystal field, Platelet Estimate SLT INC, RBC Morphology NORM C+C 08/10/19 05:30: PT 18.5 H, INR 1.6 08/10/19 05:30: Phosphorus 2.3 L 08/10/19 05:30: B-Natriuretic Peptide 20.6 08/10/19 11:38: POC Glucose 125 H 08/10/19 15:18: POC Glucose 117 H 08/10/19 17:21: POC Glucose 155 H Current Medications Acetaminophen (Tylenol) 650 mg PO Q6H PRN PRN PRN Reason: Pain Score 1-3/Temp > 100.7 F Acetaminophen (Tylenol) 650 mg RECTAL Q4H PRN PRN PRN Reason: Pain Score 1-3/Temp > 100.7 F Albuterol Sulfate (Ventolin Aerosols) 2.5 mg INHALATION Q2H PRN PRN PRN Reason: SOB/Wheezing Allopurinol (Zyloprim) 300 mg PO DAILY [facility] Last Admin: 08/10/19 10:37 Dose: Not Given Documented by: Aspirin (Ecotrin) 81 mg PO QHS [facility] Last Admin: 08/09/19 23:53 Dose: 81 mg Documented by: Atorvastatin Calcium (Lipitor) 80 mg PO QHS [facility] Last Admin: 08/09/19 23:53 Dose: 80 mg Documented by: Benztropine Mesylate (Cogentin) 0.5 mg PO QHS [facility] Last Admin: 08/09/19 23:53 Dose: 0.5 mg Documented by: Buspirone HCl (Buspar) 10 mg PO BID [facility] Last Admin: 08/10/19 10:37 Dose: Not Given Documented by: Cholecalciferol (Vitamin D) 5,000 unit PO DAILY [facility] Last Admin: 08/10/19 10:37 Dose: Not Given Documented by: Cyanocobalamin (Vitamin B12) 1,000 mcg PO DAILY [facility] Last Admin: 08/10/19 10:37 Dose: Not Given Documented by: Enoxaparin Sodium (Lovenox) 40 mg SC DAILY [facility] Last Admin: 08/10/19 10:37 Dose: Not Given Documented by: Glucagon () 1 mg IM .X1 PRN PRN Reason: Hypoglycemia Haloperidol Lactate (Haldol) 1 - 2 mg IV Q4H PRN PRN PRN Reason: SEVERE AGITATION Last Admin: 08/10/19 05:25 Dose: 2 mg Documented by: Vancomycin IV Pharmacy to Dose (1 ea/ Sodium Chloride) 500 mls @ 250 mls/hr IV X1 PRN; Protocol PRN Reason: Rx to Dose Dextrose (Dextrose 10%-Water) 250 mls @ 999 mls/hr IV .Q16M PRN; Protocol PRN Reason: HYPOGLYCEMIA Vancomycin HCl (Vancomycin) 1,000 mg in 200 mls @ 200 mls/hr IV Q12H [facility] Last Infusion: 08/10/19 08:35 Dose: Infused Documented by: Sodium Chloride () 250 mls @ 15 mls/hr IV .[id number] PRN PRN Reason: Saline Flush Sodium Chloride () 250 mls @ 15 mls/hr IV .[id number] PRN PRN Reason: Additional IVPB Infusion Cefepime HCl 2 gm/ Sodium (Chloride) 100 mls @ 200 mls/hr IV Q24 [facility] Last Infusion: 08/10/19 10:38 Dose: Infused Documented by: Insulin Human Lispro (Humalog Kwikpen (Bkc)) 0 unit SC Q6 [facility]; Protocol Last Admin: 08/10/19 17:24 Dose: 1 unit Documented by: Levothyroxine Sodium (Synthroid) 75 mcg PO DAILY@0600 [facility] Last Admin: 08/10/19 06:53 Dose: 75 mcg Documented by: Metoprolol Tartrate (Lopressor (Beta Armani)) 5 mg IV Q6 [facility] Last Admin: 08/10/19 17:09 Dose: 5 mg Documented by: Morphine Sulfate () 1 - 2 mg IV Q3H PRN PRN PRN Reason: Pain Score 1-10/10 Last Admin: 08/10/19 17:29 Dose: 2 mg Documented by: Olanzapine (Zyprexa) 20 mg PO DAILY [facility] Last Admin: 08/10/19 10:37 Dose: Not Given Documented by: Prochlorperazine Edisylate (Compazine Iv) 5 mg IV Q4H PRN PRN PRN Reason: Breakthrough Nausea/Vomiting Last Admin: 08/10/19 10:33 Dose: 5 mg Documented by: Promethazine HCl (Phenergan Suppository) 12.5 mg RECTAL Q6H PRN PRN PRN Reason: Breakthrough Nausea/Vomiting Sodium Chloride () 10 - 40 ml IV UD PRN PRN Reason: Open End PICC Flush Last Admin: 08/10/19 17:29 Dose: 20 ml Documented by: Sodium Chloride (0.9% Nacl (Sterile) Posiflush) 10 - 40 ml IV UD PRN PRN Reason: Port access or dressing change Sodium Hypochlorite (Dakins Solution 0.25% (1/2 Strength)) 1 applic TOPICAL BID [facility]; Protocol Trazodone HCl (Desyrel) 25 mg PO QHS [facility] Last Admin: 08/09/19 23:54 Dose: 25 mg Documented by: Venlafaxine HCl (Effexor Xr) 150 mg PO DAILY [facility] Last Admin: 08/10/19 10:37 Dose: Not Given Documented by: Code Visit Addendum: Dr. Campos I personally examined the patient and reviewed the chart. I agree with the above. 63-year-old female who was recently in the TCU presented for hypoxia and possible pneumonia. She did have a CT scan that did not show any focal infiltrate or signs of pneumonia. Pulmonology was consulted and we appreciate [facility]mer craw[place] assistance. She has been very confused which does appear to be her baseline per report, however she was given Haldol overnight which did not help and therefore she was ordered Geodon here in the hospital and see if that helps. She also has a large decubitus ulcer, and surgery is been consulted to assist with management as well as infectious disease. The wound is growing a beta- hemolytic and a gram-positive organism, so we will continue with cefepime and vancomycin for now, while culture data is pending. Inpatient E&M: 23114 Subs Hosp L2
[2019-08-10 14:51] LABS: BNP,B-Type NATRIURETIC PEPTIDE 20.6 pg/mL (0-100)
[2019-08-10] MEDS: Ziprasidone IM 20 MG/ML VIAL IM (15:16)
[2019-08-10] MEDS: Metoprolol Tartrate 5 MG/5 ML Vial IV ×3 (15:16→23:12)
[2019-08-10 15:21] LABS: Bedside Glucose 117 mg/dL (70-110)
[2019-08-10] MEDS: Insulin Lispro 100 UNIT/ML INSULN.PEN SC (17:24)
[2019-08-10 17:41] LABS: Bedside Glucose 155 mg/dL (70-110)
--- NOTE | 2019-08-10 19:00 | CT_ITS ---
STUDY: CT CHEST WITHOUT CONTRAST REASON FOR EXAM: Female, 63 years old. PNEUMONIA, SEPSIS, ACUTE RESPIRATORY FAILURE, HYPOXIA, AMS, FEVER, COUGH, HTN, CKD, DIAB, BIPOLAR RADIATION DOSAGE (If Supplied By Facility): CTDIvol = ( 20.00 ) mGy, DLP = ( 689.50 ) mGycm TECHNIQUE: Transaxial imaging was performed without the administration of intravenous contrast material. Multiplanar coronal and sagittal images were reformatted. Individualized dose optimization techniques were used for this CT. COMPARISON: None. FINDINGS: Lungs are slightly underexpanded with bilateral lower lobe atelectasis, right more severe compared to the left. There is mild right-sided pleural effusion and minimal left-sided effusion. There is no demonstrated pleural abnormality. There is mild cardiac enlargement. Normal mediastinum. Normal hilar regions. Normal unenhanced pulmonary arteries. There is atherosclerotic calcification of the aortic arch with tortuosity and elongation of the aortic arch and descending thoracic aorta. There are multi-level degenerative changes of the thoracic spine. There is a soft tissue stranding of the posterior aspect of the right SI joint with punctate air suggestive of inflammatory changes versus sequela of recent procedure. Upper abdomen: Status post cholecystectomy. Nonspecific bilateral perinephric stranding. Fluid surrounding the liver and spleen. Soft tissue elongated structure along the left upper abdomen not entirely included in the [id number] and likely representing volume averaging from a bowel loop, clinical significance indeterminate. If upper abdominal symptoms are present, follow-up with CT of the abdomen and pelvis recommended. CT/Chest without Contrast IMPRESSION: Bilateral lower lobe atelectasis, right maternal left with mild right-sided pleural effusion. Mild ascites. No focal infiltrate or pleural effusion. Electronically Signed: Yohana Del Rio MD at 4:05 EST , Service support ,
--- NOTE | 2019-08-10 20:52 | NURSING ---
Attempted to call pts daughter at this time to give her update on pt. No answer, will attempt again at a later time.
[2019-08-10] MEDS: traZODone 50 MG Tablet 25 MG PO (21:18)
[2019-08-10] MEDS: busPIRone 5 MG Tablet 10 MG PO (21:20)
[2019-08-10] MEDS: Aspirin E.C. 81 MG Tablet PO (21:21)
[2019-08-10] MEDS: Benztropine 2 MG Tablet 0.5 MG PO (21:21)
[2019-08-10] MEDS: Atorvastatin Calcium 80 MG Tablet PO (21:21)
[2019-08-10] MEDS: DAKIN'S SOL HALF STRENGTH (=0.25%) 1 APPLIC TOPICAL (23:12)
[2019-08-10 23:30] LABS: Bedside Glucose 148 mg/dL (70-110)
--- NOTE | 2019-08-10 23:37 | CPS ---
Addendum entered by Ameena Gonzalez 08/11/19 04:49: pt is confused and yelling out, not able to comprehend bipap mask Original Note: pt brought own bipap from home
[2019-08-11] VITALS (38 sets, daily range): BP systolic 91–144; BP diastolic 47–98; PULSE 102–132; RESP 12–40; TEMP 36.1–37.1; O2SAT 90–100; BMI 36.9
--- NOTE | 2019-08-11 | PRES_PTH ---
PATIENT: JOSELITO GARNER LOC: [facility] U#:[id number] AGE/SX: 63/F ROOM: ICU03 RE08/09/[address]: Dr. Jules Campos MD : [id number] BED: 1 DIS: 08/20/2019 SPEC #: [id number] RECD: 08/11/19 13:50 STATUS: CODY REQ #: [id number] SIOBHAN: 08/11/19 00:[address]: Cristian Kaiser DEPT: SURGICAL PATHOLOGY RECD BY: Kenneth Welch ENTERED: 08/11/19 13:51 SP TYPE: PRESS SORE OTHR DR: Dr. Cinthya Barriga, DO Dr. Indra Dominguez, DO MD Dr. Zaira Grande, DO MD Dr. Maverick Ashley MD Tissues: A - Ischium, NOS B - Ischium, NOS Procedures: Decalcification bone/plaque Surgery Specimen Level IV Comments: @ Ordering doctor for DEC edited from to DR.JSLABY Hummel by JERAMIE at 08/11/19 1451 @ Ordering doctor for SUIV edited from to @ by JERAMIE at 08/11/19 1459 @ Submitting doctor edited from to DR.JSLABY Shaheed BOBO at 08/11/19 1459 HEADER OPERATION: Excision infected pressure sore, right buttock PRE-OP DIAGNOSIS: Infected right buttock pressure sore stage IV; necrotizing soft tissue infection TISSUE SUBMITTED: A - Debrided soft tissue right buttock, B - Debrided sacral bone - right MICROSCOPIC DIAGNOSIS A. Skin and soft tissue of right buttock, excision: Ulceration with associated acute and chronic inflammation, granulation and fat necrosis. B. Right sacral bone, biopsy: Focal changes suggestive of acute osteomyelitis. AM:shanna 08/21/19 MICROSCOPIC DESCRIPTION Slides are reviewed. GROSS DESCRIPTION A - Received in fixative is one container labeled with the patient's name and designated debrided soft tissue right buttock. The specimen consists of three variable sized pieces of skin with underlying tissue measuring in aggregate 10 x 6 x 3 cm. No skin lesion is identified. Sections do not reveal any mass lesion. Strategic [employer] Leader sections are submitted in three cassettes. B - Received in fixative is one container labeled with the patient's name and designated debrided sacral bone, right. The specimen consists of three variable sized pieces of catherine-pink bone measuring in aggregate 1.5 x 1.5 x 0.3 cm. The entire specimen is submitted in one cassette after decalcification. / CARLOS:shanna 08/11/19 TC:2 CPT: 67963 x2, [id number]
--- NOTE | 2019-08-11 05:00 | CPS ---
RN was able to place pt on home bipap
[2019-08-11] MEDS: Metoprolol Tartrate 5 MG/5 ML Vial IV ×3 (06:06→23:29)
[2019-08-11] MEDS: Levothyroxine 75 MCG Tablet PO (06:11)
[2019-08-11 06:35] LABS: Bedside Glucose 124 mg/dL (70-110)
--- NOTE | 2019-08-11 07:50 | NURSING ---
called recieved number from that put rods and screws in patients back 6 yrs [facility] Dr. Christensen [phone]
[2019-08-11] MEDS: Vancomycin IV 1,000 MG/200 ML BAG 200 MG IV (07:52)
--- NOTE | 2019-08-11 07:52 | CT_ITS ---
STUDY: CT PELVIS WITHOUT CONTRAST REASON FOR EXAM: Female, 63 years old. INFECTED RIGHT BUTTOCK/SACRAL PRESSURE SORE -- POSSIBLE OSTEOMYELITIS -- SURG-GB,APPY,HYST,LUMBAR X4 RADIATION DOSAGE (If Supplied By Facility): CTDIvol = ( 27.43 ) mGy, DLP = ( 767.30 ) mGycm TECHNIQUE: Transaxial imaging of the pelvis was performed with oral contrast, and without intravenous administration of contrast material. Multiplanar coronal and sagittal images were reformatted. Individualized dose optimization techniques were used for this CT. COMPARISON: Comparison is made with prior study dated July 24, 2019. FINDINGS: There is a 1.4 cm x 7.3 cm soft tissue gap overlying the right buttock. This is new as compared to prior examination. This most likely secondary to prior debridement. There is induration of the underlying gluteus herminio muscle. There is evidence of scalloping of the mid posterior right hemisacrum at that site. This may represent a focal area of bony destruction and osteomyelitis. A Ahmadi catheter is seen within the urinary bladder. Urinary bladder is empty. Small amount of ascitic fluid with increased markings in the peritoneal fat. Normal visualized small intestine. There are multiple colonic diverticula of the sigmoid colon consistent with chronic diverticulosis. There is no pelvic fluid. There is no pelvic mass lesion or lymphadenopathy. There is diffuse atherosclerotic calcification of the pelvic arteries. Small umbilical hernia containing fat. There are diffuse degenerative changes of the visualized lumbar spine. CT/Pelvis without IV Contrast IMPRESSION: Large soft tissue gap most likely secondary to debridement overlying the right gluteus muscle. Focal scalloping of the posterior margin of the right hemisacrum. Osteomyelitis should be ruled out. Electronically Signed: Alan Dennis, at 11:07 EST , Service support ,
[2019-08-11 08:04] LABS: Vancomycin, Trough Level 27.6 ug/mL (5.0-15.0)
[2019-08-11 08:46] LABS: Anion Gap 9 (5-15); BUN 16 mg/dL (7-18); BUN/Creat Ratio 13.9 RATIO (10-20); Chloride 119 mmol/L (98-107); Creatinine, Serum 1.15 mg/dL (0.55-1.02); EST Glomerular Filtration Rate 51 mL/min (>60); Est Glom Filt Rate - Afr Amer 61 mL/min (>60); Glucose 137 mg/dL (74-106); Potassium 3.8 mmol/L (3.5-5.1); Sodium Level 146 mmol/L (136-145)
[2019-08-11 09:06] LABS: Hematocrit 35.8 % (37-47); Hemoglobin 11.3 g/dL (12.0-15.0); Mean Corp Hgb Conc 31.6 g/dL (32-36); Mean Corpuscular Volume 101.4 fL (81-99); Mean Platelet Vol. 9.4 fl (6.2-12.0); POSITIVE COUNT YES; Platelet Count 656 K/mm3 (150-450); RBC Distribution Width CV 15.9 % (11.6-14.6); RBC Distribution Width SD 58.2 fl (35.1-43.9); Red Blood Count 3.53 M/mm3 (4.2-5.4)
[2019-08-11 09:08] LABS: Scan Indicated on CBC? Y/N YES- FLAGS NOTED
--- NOTE | 2019-08-11 09:10 | PCM.RX.CS ---
Consult Pharmacy has been consulted to manage selected antiobiotic: Vancomycin Type of Consult: Follow-up Suspected Infection: Sepsis Prior Doses of Antibiotics Received/Current Regimen: 1gm iv q12h. Labs: Sodium 146 mmol/L (136-145) H 08/11/19 06:55 Potassium 3.8 mmol/L (3.5-5.1) 08/11/19 06:55 Chloride 119 mmol/L (98-107) H 08/11/19 06:55 Carbon Dioxide 18.0 mmol/L (21.0-32.0) L 08/11/19 06:55 Anion Gap 9 (5-15) 08/11/19 06:55 BUN 16 mg/dL (7-18) 08/11/19 06:55 Creatinine 1.15 mg/dL (0.55-1.02) H 08/11/19 06:55 Est GFR (MDRD) Af Amer 61 mL/min (>60) 08/11/19 06:55 Est GFR (MDRD) Non-Af 51 mL/min (>60) L 08/11/19 06:55 BUN/Creatinine Ratio 13.9 RATIO (10-20) 08/11/19 06:55 Glucose 137 mg/dL (74-106) H 08/11/19 06:55 Vancomycin Trough 27.6 ug/mL (5.0-15.0) H 08/11/19 06:55 Microbiology: Microbiology 08/09/19 Unknown Wound - Buttock Gram Stain - Final 08/09/19 Unknown Wound - Buttock Wound Culture - Preliminary Beta hemolytic organism Gram positive organism Weight used for dosin.6 kg Estimated Creatinine Clearance: ~40ml/min Goal Trough: 15-20 mcg/mL Pharmacy Plan for Drug Dosing: Trough level today 27.6mcg/ml. Have DC'd current order of 1gm iv q12h. Will get a repeat random level in 24hrs. When level <20mcg/ml will determine a new dose and frequency. Pharmacy Service will continue to monitor and adjust dosing as required. Follow-Up Labs: Trough Other - random level 2.4.20 @3562
--- NOTE | 2019-08-11 09:33 | CON.PCM_ITS ---
- Consult Date of Consult: 08/11/19 Consultation (Standard) Patient Name: JOSELITO GARNER Date of : 1955 Patient Status: Inpatient Attending Provider: Stacy Chris Date: 07/25/19 12:00 Initialization Date: 07/25/19 12:00 Reason for Consult Date of Consultation: 07/25/19 Reason for Consultation: Infected right buttock pressure sore. REFERRING PHYSICIAN: Dr. Villegas. BREAKER UNIT ASSEMBLER: Dr. Kaiser. History of Present Illness: The patient is a 63 y/o F with a history of diabetes mellitus has had recent falls and developed a right buttock pressure sore. She [facility] on 07/[facility]. Wound culture showed Serratia marcescens, E. coli, and Anaerobic cocci. She was started on Cleocin and Levaquin was added. With worsening foul smelling drainage, she came to the ED. WBC was 8.8. She was started on Ceftriaxone. CT Pelvis was done which showed subcutaneous edema and abnormal air in the soft tissues consistent with infection. No osseous destruction to suggest osteomyelitis. I was asked to evaluate this patient for surgical options for treatment. 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) Blood glucose elevated (Chronic) Hypertension (Chronic) Hyperlipidemia (Chronic) Chronic back pain (Chronic) Impaired mobility (Chronic) Severe obesity (BMI 35.0-35.9 with comorbidity) (Chronic) CKD (chronic kidney disease), stage III (Chronic) Diabetes mellitus, type II (Chronic) Anxiety and depression (Chronic) RLS (restless legs syndrome) (Chronic) Nicotine vapor product user (Chronic) Former tobacco use (Chronic) Macrocytic anemia (Chronic) Allergies Iodinated Contrast Media [CONTRASTS] Allergy (Verified 07/24/19 16:36) Hives morphine Adverse Reaction (Verified 07/24/19 16:36) Nausea Home Medications: Ambulatory Orders Medication Instructions Recorded Allopurinol 300 mg PO DAILY 07/22/19 Benztropine Mesylate 0.5 mg PO QHS 07/22/19 Bumetanide 1 mg PO BID 07/22/19 Buspirone HCl 10 mg PO BID 07/22/19 Cyanocobalamin (Vitamin B-12) 1,000 mcg PO DAILY 07/22/19 [Vitamin B-12] Diazepam [Valium] 5 mg PO DAILY 07/22/19 Empagliflozin [Jardiance] 10 mg PO DAILY 07/22/19 Furosemide 40 mg PO BID 07/22/19 Gabapentin [Neurontin] 600 mg PO 4X/DAY 07/22/19 Hydroxyzine HCl 50 mg PO QHS PRN PRN 07/22/19 Ibuprofen/Diphenhydramine HCl 2 cap PO QHS PRN 07/22/19 [Advil Pm Liqui-Gels] Levothyroxine [Synthroid] 75 mcg PO DAILY 07/22/19 Multivitamin with Minerals 1 ea PO DAILY 07/22/19 [Multivitamins with Minerals] Olanzapine 20 mg PO DAILY 07/22/19 Omeprazole 40 mg PO DAILY 07/22/19 Potassium Chloride [K-Dur] 10 meq PO BID 07/22/19 Pramipexole Di-HCl [Mirapex] 0.125 mg PO QHS 07/22/19 Psyllium Husk [Fiber] 4 cap PO DAILY 07/22/19 Rosuvastatin Calcium 40 mg PO QHS 07/22/19 Sodium Bicarbonate 2 tab PO BID 07/22/19 Torsemide 20 mg PO BID 07/22/19 Venlafaxine HCl [Venlafaxine HCl 150 mg PO DAILY 07/22/19 ER] traZODone [Desyrel] 25 mg PO QHS 07/22/19 Amox/Clavulanate Tablet [Augmentin 1 tab PO Q12H 07/24/19 Tablet] Aspirin [Aspir 81] 81 mg PO QHS 07/24/19 Cholecalciferol (Vitamin D3) 5,000 unit PO DAILY 07/24/19 [Vitamin D3] Metoprolol Tartrate 25 mg PO BID 07/24/19 Mv-Min/FA/Vit K/Lycop/Lut/Zeax 1 tab PO TID 07/24/19 [Ocuvite Eye Plus Multi Tablet] Surgical History: - - Lumbar spinal surgery with hardware, at least 4 previous back surgeries, cholecystectomy, appendectomy, hysterectomy. 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 Paternal History Items: - - Patient denies any market maternal or paternal family history including heart disease, diabetes, cancer. Review of Systems Comment: Constitutional: Reports: Anorexia, Malaise, Weakness, Fatigue. Denies: Chills, Fever, Weight Change. HEENT: Denies: Head Aches, Sinus Congestion, Sinus Drainage. Cardiovascular: Denies: Chest Pain, Palpitations. Respiratory: Reports: Shortness of breath upon exertion. Denies: Cough, Shortness of breath at rest, Sputum production. Gastrointestinal: Denies: Abdominal Pain, Nausea, Vomiting. Genitourinary: Denies: Dysuria. Musculoskeletal: Reports: Back Pain, Joint Pain. Denies: Joint Tenderness. Skin: Reports: Skin Changes, Wounds. Denies: Rash. Neurological: Denies: Numbness, Tingling, Focal weakness. Psychiatric: Reports: Anxiety, Depression. Denies: Homicidal Ideations, Suicidal Ideations. Hematologic/ Lymphatic: Reports: Easy Bruising, Easy Bleeding Patient Problems: Active and Suspected Problems ILIANA (acute kidney injury) (Acute) Intractable low back pain (Acute) - Physical Exam Vitals/I&O's: Physical Examination: General: awake, alert, oriented x 3 and cooperative. Skin: Right buttock pressure sore, tunneling. Measures 6 x 6 x 3 cm. Undermining measures 4 cm. Purulent foul-smelling drainage present. No exposed bone but it is palpable. Suspect bony involvement and osteomyelitis. Stage IV pressure sore. HEENT: EOMI, PERRLA, dry MM. Lungs: CTA bilaterally, moderate effort. Heart: Regular rate and rhythm. Abdomen: soft, obese, nondistended. Extremities: no cyanosis, clubbing, mild edema in lower extremities. Neurological: cranial nerves II-XII grossly normal. Psychiatric: affect appears fatigued, flat. Vital Signs Temp Pulse Resp BP Pulse Ox 97.5 F L 89 16 103/55 L 94 07/25/19 11:18 07/25/19 11:18 07/25/19 11:18 07/25/19 11:18 07/25/19 11:18 Oxygen Flow Rate (L/min) 2 Oxygen Delivery Method Nasal Cannula Weight: 206 lb 9.17 oz Body Mass Index (BMI) 36.6 Intake and Output for Last 24 Hours 07/23/19 07/24/19 07/25/19 23:59 23:59 23:59 Intake Total 1050 / 1050 700 / 700 Output Total 700 / 700 Balance 1050 / 1050 0 / 0 Laboratory Results 07/24/19 17:25: Urine Color Yellow, Urine Clarity Clear, Urine pH 5.0, Ur Specific Kimberly 1.020, Urine Protein 30 H, Urine Glucose (UA) Normal, Urine Ketones Negative, Urine Occult Blood 10 H, Urine Nitrite Negative, Urine Bilirubin Negative, Urine Urobilinogen Normal, Ur Leukocyte Esterase Negative, Urine RBC 0 SEEN, Urine WBC 0 SEEN, Ur Squamous Epith Cells 0 SEEN, Ur Transition Epith Cell 0-5 SEEN, Ur Renal Epithelial Cell 0-5 SEEN, Urine Bacteria 0 SEEN, Hyaline Casts 0-5 SEEN, Urine Mucus 0 SEEN 07/24/19 17:25: Ur Random Sodium 72 07/24/19 17:25: Urine Creatinine 55.40 07/24/19 18:13: WBC 8.8, RBC 2.91 L, Hgb 9.1 L, Hct 29.1 L, MCV 100.0 H, MCH 31. 3, MCHC 31.3 L, RDW Std Deviation 53.5 H, RDW Coeff of Harper 14.6, Plt Count 225, MPV 8.9, Immature Gran % (Auto) MANAGER EQUITY, Neut % (Auto) MANAGER EQUITY, Lymph % (Auto) MANAGER EQUITY, [place] % (Auto) MANAGER EQUITY, Eos % (Auto) MANAGER EQUITY, Baso % (Auto) MANAGER EQUITY, Absolute Neuts (auto) 4.5, Absolute Lymphs (auto) 2.80, Total Counted 100, Neutrophils % (Manual) 49, Band Neutrophils % 2, Lymphocytes % (Manual) 32, Monocytes % (Manual) 11 H, Eosinophils % (Manual) 4, Myelocytes % 2 H, Nucleated RBC % 0, Diff Path Review May foll, Platelet Estimate ADEQUATE, Anisocytosis 1+, Microcytosis 1+ 07/24/19 18:13: Sodium 136, Potassium 5.0, Chloride 105, Carbon Dioxide 27.0, Anion Gap 4 L, BUN 25 H, Creatinine 2.97 H, Estim Creat Clear Calc 16.04, Est GFR (MDRD) Af Amer 20 L, Est GFR (MDRD) Non-Af 17 L, BUN/Creatinine Ratio 8.4 L, Glucose 111 H, Calcium 10.0, Troponin I < 0.015 07/24/19 18:13: Magnesium 2.7 H, Iron 105, TIBC 302, Iron Saturation 34.8 07/24/19 18:13: Hemoglobin A1c 6.6 H 07/24/19 21:58: Ferritin 181, Folate 57.70 H 07/24/19 21:58: Vitamin B12 1015 H 07/24/19 23:50: S.aureus Protein A PCR NEGATIVE, MRSA (PCR) Negative 07/25/19 00:26: POC Glucose 86 07/25/19 05:28: Sodium 139, Potassium 4.2, Chloride 109 H, Carbon Dioxide 24.0, Anion Gap 6, BUN 20 H, Creatinine 2.51 H, Estim Creat Clear Calc 18.98, Est GFR (MDRD) Af Amer 25 L, Est GFR (MDRD) Non-Af 21 L, BUN/Creatinine Ratio 8.0 L, Glucose 78, Calcium 8.8 07/25/19 05:28: WBC 12.5 H, RBC 3.43 L, Hgb 10.9 L, Hct 34.7 L, MCV 101.2 H, MCH 31.8, MCHC 31.4 L, RDW Std Deviation 54.8 H, RDW Coeff of Harper 14.8 H, Plt Count 346, MPV 8.6, Immature Gran % (Auto) 3.800 H, Neut % (Auto) 48.1, Lymph % (Auto) 34.8, [place] % (Auto) 9.8, Eos % (Auto) 2.5, Baso % (Auto) 1.0, Absolute Neuts (auto) 6.0, Absolute Lymphs (auto) 4.37, Nucleated RBC % 0.2 07/25/19 05:28: PT 15.3 H, INR 1.2, APTT 33.2 07/25/19 06:33: POC Glucose 79 07/25/19 11:20: POC Glucose 84 Current Medications Acetaminophen (Tylenol) 650 mg PO Q6H PRN PRN PRN Reason: Pain Score 1-3/Temp > 100.7 F Al Hydroxide/Mg Hydroxide (Mylanta Ii) 30 ml PO Q6H PRN PRN PRN Reason: Gastric Burning Albuterol Sulfate (Ventolin Aerosols) 2.5 mg INHALATION Q2H PRN PRN PRN Reason: Shortness of Breath/Wheezing Allopurinol (Zyloprim) 300 mg PO DAILY [facility] Last Admin: 07/25/19 09:41 Dose: 300 mg Documented by: Atorvastatin Calcium (Lipitor) 80 mg PO QHS [facility] Last Admin: 07/25/19 00:33 Dose: 80 mg Documented by: Benztropine Mesylate (Cogentin) 0.5 mg PO QHS [facility] Last Admin: 07/25/19 00:34 Dose: 0.5 mg Documented by: Buspirone HCl (Buspar) 10 mg PO BID [facility] Last Admin: 07/25/19 09:40 Dose: 10 mg Documented by: Cyanocobalamin (Vitamin B12) 1,000 mcg PO DAILY [facility] Diazepam (Valium) 5 mg PO DAILY [facility] Gabapentin (Neurontin) 600 mg PO 4X/DAY [facility] Last Admin: 07/25/19 09:40 Dose: 600 mg Documented by: Glucagon () 1 mg IM .X1 PRN PRN Reason: Hypoglycemia Guaifenesin (Robitussin) 20 ml PO Q4H PRN PRN PRN Reason: COUGH Heparin Sodium (Porcine) (Heparin Na) 5,000 unit SC Q12 [facility] Last Admin: 07/25/19 09:37 Dose: Not Given Documented by: Hydralazine HCl (Apresoline Iv) 10 mg IV Q4H PRN PRN PRN Reason: SBP > 160 Hydroxyzine Pamoate (Vistaril Pamoate Capsule) 50 mg PO QHS PRN PRN PRN Reason: ANXIETY Sodium Chloride () 1,000 mls @ 100 mls/hr IV .Q10H [facility] Last Admin: 07/25/19 09:07 Dose: Not Given Documented by: Ceftriaxone Sodium (Rocephin) 1 gm in 50 mls @ 100 mls/hr IV Q24H [facility] Dextrose (Dextrose 10%-Water) 250 mls @ 999 mls/hr IV .Q16M PRN; Protocol PRN Reason: HYPOGLYCEMIA Sodium Chloride () 250 mls @ 15 mls/hr IV .[id number] PRN PRN Reason: Saline Flush Sodium Chloride () 250 mls @ 15 mls/hr IV .[id number] PRN PRN Reason: Additional IVPB Infusion Insulin Human Lispro (Humalog Kwwilliampen (Bkc)) 0 unit SC ACHS [facility]; Protocol Last Admin: 07/25/19 06:38 Dose: Not Given Documented by: Levothyroxine Sodium (Synthroid) 75 mcg PO DAILY@0600 [facility] Last Admin: 07/25/19 05:52 Dose: Not Given Documented by: Magnesium Hydroxide (Milk Of Magnesia) 30 ml PO DAILY PRN PRN PRN Reason: Constipation Melatonin (Melatonin) 3 mg PO QHS PRN PRN PRN Reason: INSOMNIA Metoprolol Tartrate (Lopressor (Beta Armani)) 25 mg PO BID [facility] Last Admin: 07/25/19 00:33 Dose: 25 mg Documented by: Morphine Sulfate () 2 mg IV Q3H PRN PRN PRN Reason: Pain Score 6-10/10 Nutritional Formula (Lactose Free) (Glucerna Shake) 120 ml PO 4X/DAY [facility] Last Admin: 07/25/19 09:08 Dose: Not Given Documented by: Olanzapine (Zyprexa) 20 mg PO DAILY [facility] Last Admin: 07/25/19 09:40 Dose: 20 mg Documented by: Ondansetron HCl (Zofran) 4 mg IV Q8H PRN PRN PRN Reason: NAUSEA/VOMITING Oxycodone HCl (Oxyir) 5 mg PO Q4H PRN PRN PRN Reason: Pain Score 4-5/10 Pantoprazole Sodium (Protonix) 40 mg PO DAILY [facility] Last Admin: 07/25/19 09:41 Dose: 40 mg Documented by: Potassium Chloride (K-Dur) 10 meq PO BID [facility] Last Admin: 07/25/19 00:33 Dose: 10 meq Documented by: Pramipexole Dihydrochloride (Mirapex) 0.125 mg PO QHS [facility] Last Admin: 07/25/19 00:32 Dose: 0.125 mg Documented by: Prochlorperazine Edisylate (Compazine Iv) 5 mg IV Q4H PRN PRN PRN Reason: Breakthrough nausea/vomiting Sodium Bicarbonate (Sodium Bicarbonate) 1,300 mg PO BID [facility] Last Admin: 01/17/20 09:40 Dose: 1,300 mg Documented by: Sodium Chloride () 10 - 40 ml IV UD PRN PRN Reason: SALINE FLUSH Last Admin: 07/25/19 09:43 Dose: 10 ml Documented by: Sodium Hypochlorite (Dakins Solution 0.25% (1/2 Strength)) 1 applic TOPICAL BID [facility]; Protocol Last Admin: 07/25/19 09:08 Dose: 1 applicatio Documented by: Throat Lozenges (Cepacol Sore Throat Lozenge) 1 lozenge MUCOUS MEM Q2H PRN PRN PRN Reason: Sore throat or cough Tizanidine HCl (Zanaflex) 2 mg PO Q8H PRN PRN PRN Reason: back strain, spasms, severe Trazodone HCl (Desyrel) 25 mg PO QHS [facility] Last Admin: 07/25/19 00:33 Dose: 25 mg Documented by: Venlafaxine HCl (Effexor Xr) 150 mg PO DAILY [facility] Last Admin: 07/25/19 09:39 Dose: 150 mg Documented by: Assessment/Plan All Active Problems Pressure ulcer, buttock, right, unstageable (Acute) Decreased renal function (Acute) ILIANA (acute kidney injury) (Acute) Intractable low back pain (Acute) 1. Infected right buttock pressure sore, Stage IV. 2. Necrotizing soft tissue infection. 2. Diabetes mellitus. 3. Smoker. Continue Ceftriaxone. Preop cultures showed Serratia marcescens and E. coli and Anaerobic cocci. CT Pelvis reviewed. There is foul smelling odor to the pressure sore. Suspect necrotizing soft tissue infection. Will begin Dakin's dressing changes. Recommend operative intervention with excision of the pressure sore. I suspect bony involvement and a partial ostectomy will be done as well. Postop can proceed with wound care with the VAC. Tissue and bone will be sent to Pathology for analysis to rule out carcinoma and to evaluate for osteomyelitis and to Microbiology for culture. Since the patient is not confined to bed, there is a better chance at healing. Depending on the healing process, a muscle flap or fasciocutaneous flap may be necessary. Anticipate increased metabolic demands from the infection and from the pressure sore. Will check a Prealbumin and encourage nutritional supplementation with protein to help the healing process. With the foul smelling drainage and suspected necrotizing soft tissue infection and history of diabetes mellitus, the patient is at increased risk for a necrotizing process which can be life threatening. So will urgently take the patient to surgery today. After discharge, can return to the Wound Center. Patient was informed of the risks and complications of the procedure including alternatives to surgery. These were discussed with the patient personally. Patient voices understanding and wishes to proceed. Encouraged patient to stop smoking as it may have deleterious effects on wound healing.
--- NOTE | 2019-08-11 10:27 | CASEMGMT ---
Patient came to PCU from TCU. SW will follow for d/c planning. Saundra BARRON MSW
[2019-08-11 11:00] LABS: Bedside Glucose 126 mg/dL (70-110)
--- NOTE | 2019-08-11 12:59 | NURSING ---
Pt had been sent over from TCU this weekend d/t SOB and change in mental status. Pt is currently off unit in surgery with Dr Kaiser.
[2019-08-11 13:23] LABS: Pathologist Review Reviewed
--- NOTE | 2019-08-11 13:24 | OP.PCM_ITS ---
Report of Operation Date of Procedure: 08/11/19 Pre-Operative Diagnosis: 1. 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 2. Diabetes mellitus. 3. Stool contamination. 4. Smoker. Post-Operative Diagnosis: Same. Surgery/Procedure Performed:: Excision infected necrotizing right buttock and sacral pressure sore, Stage IV, with partial ostectomy for osteomyelitis. Description of Surgical Findings:: I performed surgery on this patient on 07/25/19 where she underwent excision infected necrotizing right buttock and sacral pressure sore, Stage IV, with partial ostectomy for osteomyelitis. Operative culture showed Serratia marcescens. She was treated with Meropenem and was discharged to TCU on Cefdinir. The Pathology was negative for osteomyelitis. Wound care was with the VAC. She became medically unstable and septic and was transferred to the ICU initially and then to PCU. WBC was in the 20's. She was placed on Vancomycin and Cefepime. While at TCU there were reports of some loose stool. There is concern about stool contamination re-infecting the pressure sore. The VAC was changed to Dakin's dressing changes. Will proceed with further excision of her pressure sore today with partial ostectomy for osteomyelitis. Depending on the degree of stool contamination seen at surgery, will obtain a General Surgery consult for a diverting colostomy. Patient and family were informed of the risks and complications of the procedure including alternatives to surgery. These were discussed with them personally. They voice understanding and wish to proceed. Encouraged patient to stop smoking as it may have deleterious effects on wound healing. Size of defect right buttock and sacral area - 12 x 16 x 5 cm. double corner cutter: None Type of Anesthesia:: General Specimen's removed: 1. Infected right buttock and sacral pressure sore soft tissue to Pathology and Microbiology. 2. Infected right buttock and sacral pressure sore bone to Pathology and Microbiology. Drains: None. Estimated Blood Loss (mL): 50 ml. Description of Procedure: Patient was taken to OR in supine position and was placed under general anesthesia. She was then placed in the prone position. The right buttock area was prepped and draped in the usual fashion. SCD's were placed for DVT prophylaxis. Perioperative antibiotics were given intravenously. Using xylocaine with epinephrine, the right buttock pressure sore was infiltrated. After waiting 5 minutes for the anesthetic to take effect, a wider incision was made around the pressure sore. Dissection was carried down to the gluteus herminio muscle. A lot of fat necrosis and exudate was present. Further exci shruti of necrotic tissue extended into the right sacral area down to the sacral bone. A partial ostectomy was done to evaluate for osteomyelitis. It was done with rongeurs. Several specimens were taken. A rasp was used to smooth out the bony edges. Half the soft tissue and half the bone was sent to Pathology for analysis to rule out carcinoma and to evaluate for osteomyelitis. Half the soft tissue and half the bone was sent to Microbiology for culture. A positive culture will necessitate antibiotic therapy. The wound was irrigated with saline. Hemostasis was obtained with electrocautery. Bone wax was used to close off the raw bony edges. The size of the defect after excision of the infected necrotizing pressure sore was 12 x 16 x 5 cm. The wound was dressed with Mepitel nonadherent dressing followed by Kerlix gauze and Betadine followed by dry Kerlix gauze and ABD pads compression dressing. No evidence of bleeding noted at end of the procedure. Patient tolerated the procedure well and was sent to PACU in satisfactory condition. Patient will be sent upstairs for continued postop care. The VAC will be applied tomorrow. With the worsening of the pressure sore and with some stool contamination, I will have General Surgery evaluate the patient for a diverting colostomy. Grafts/Implants Used: None. - Complications None. - Admit VTE Documentation VTE Present on Admission: No VTE Mechan Device Prophylaxis: SCD's VTE Pharm Prophylaxis ordered?: Yes Code Visit Surgery Charges CPT - 02054-96 ICD-10 - L89.154, L89.314, M79.89, R15.9, E11.9, Z72.0
[2019-08-11 13:28] LABS: Pathologist Review Reviewed
--- NOTE | 2019-08-11 13:36 | PN_ITS ---
<FranciscoLudy - Last Filed: 08/11/19 13:42> Subjective: Patient seen and examined. Restlessness and confusion improved. To undergo surgery for further wound debridement this afternoon. - Physical Exam Vitals/I&O's: Vital Signs Temp Pulse Resp BP Pulse Ox 98.4 F 125 H 18 115/52 L 92 08/11/19 10:49 08/11/19 10:49 08/11/19 10:49 08/11/19 10:49 08/11/19 10:49 Oxygen Flow Rate (L/min) 5 Oxygen Delivery Method Nasal Cannula Weight: 208 lb 8.917 oz Body Mass Index (BMI) 36.9 Intake and Output for Last 24 Hours 08/09/19 08/10/19 08/11/19 23:59 23:59 23:59 Intake Total 3780 / 3880 1280 / 1280 660 / 660 Output Total 950 / 1100 325 / 325 Balance 3780 / 3630 330 / 180 335 / 335 General: Alert, Cooperative, No apparent distress HEENT: Atraumatic, PERRLA, EOMI, Normocephalic Oral: Dry Mucosa Neck: Supple, No JVD, Negative Carotid Bruits Lungs: Clear to auscultation, Diminished Cardiovascular: Regular Rhythm, Normal S1, Normal S2, No murmurs, Tachycardic Abdomen: Bowel Sounds Present, Soft, Non Tender, Non-Distended, Obese Extremities: No clubbing, No cyanosis, No edema Skin: - - Sacral stage IV decubitus ulcer, present on admission Musculoskeletal: No Tenderness to Palpation of Joints or Extremities Neurological: Cranial nerves II-XII grossly intact, Neuro grossly intact Psych/Mental Status: Anxious, Restless Microbiology Past 72 Hours 08/09/19 Unknown Wound - Buttock Gram Stain - Final 08/09/19 Unknown Wound - Buttock Wound Culture - Preliminary Staphylococcus aureus Gram positive organism Laboratory Results 08/09/19 16:00: Diff Path Review Reviewed 08/10/19 05:30: Diff Path Review Reviewed 08/10/19 05:30: B-Natriuretic Peptide 20.6 08/10/19 15:18: POC Glucose 117 H 08/10/19 17:21: POC Glucose 155 H 08/10/19 23:10: POC Glucose 148 H 08/11/19 06:17: POC Glucose 124 H 08/11/19 06:55: Vancomycin Trough 27.6 H 08/11/19 06:55: Sodium 146 H, Potassium 3.8, Chloride 119 H, Carbon Dioxide 18.0 L, Anion Gap 9, BUN 16, Creatinine 1.15 H, Estim Creat Clear Calc 39.60, Est GFR (MDRD) Af Amer 61, Est GFR (MDRD) Non-Af 51 L, BUN/Creatinine Ratio 13.9, Glucose 137 H, Calcium 8.0 L 08/11/19 08:56: WBC 38.0 H*, RBC 3.53 L, Hgb 11.3 L, Hct 35.8 L, MCV 101.4 H, MCH 32.0, MCHC 31.6 L, RDW Std Deviation 58.2 H, RDW Coeff of Harper 15.9 H, Plt Count 656 H, MPV 9.4, Differential Comment COMMENT, Diff Path Review November08/11/19 10:46: POC Glucose 126 H Current Medications Acetaminophen (Tylenol) 650 mg PO Q6H PRN PRN PRN Reason: Pain Score 1-3/Temp > 100.7 F Acetaminophen (Tylenol) 650 mg RECTAL Q4H PRN PRN PRN Reason: Pain Score 1-3/Temp > 100.7 F Albuterol Sulfate (Ventolin Aerosols) 2.5 mg INHALATION Q2H PRN PRN PRN Reason: SOB/Wheezing Allopurinol (Zyloprim) 300 mg PO DAILY [facility] Last Admin: 08/11/19 09:05 Dose: Not Given Documented by: Aspirin (Ecotrin) 81 mg PO QHS [facility] Last Admin: 08/10/19 21:21 Dose: 81 mg Documented by: Atorvastatin Calcium (Lipitor) 80 mg PO QHS [facility] Last Admin: 08/10/19 21:21 Dose: 80 mg Documented by: Benztropine Mesylate (Cogentin) 0.5 mg PO QHS [facility] Last Admin: 08/10/19 21:21 Dose: 0.5 mg Documented by: Buspirone HCl (Buspar) 10 mg PO BID [facility] Last Admin: 08/11/19 09:04 Dose: Not Given Documented by: Cholecalciferol (Vitamin D) 5,000 unit PO DAILY [facility] Last Admin: 08/11/19 08:36 Dose: Not Given Documented by: Cyanocobalamin (Vitamin B12) 1,000 mcg PO DAILY [facility] Last Admin: 08/11/19 08:36 Dose: Not Given Documented by: Glucagon () 1 mg IM .X1 PRN PRN Reason: Hypoglycemia Haloperidol Lactate (Haldol) 1 - 2 mg IV Q4H PRN PRN PRN Reason: SEVERE AGITATION Last Admin: 08/10/19 05:25 Dose: 2 mg Documented by: Vancomycin IV Pharmacy to Dose (1 ea/ Sodium Chloride) 500 mls @ 250 mls/hr IV X1 PRN; Protocol PRN Reason: Rx to Dose Dextrose (Dextrose 10%-Water) 250 mls @ 999 mls/hr IV .Q16M PRN; Protocol PRN Reason: HYPOGLYCEMIA Sodium Chloride () 250 mls @ 15 mls/hr IV .[id number] PRN PRN Reason: Saline Flush Sodium Chloride () 250 mls @ 15 mls/hr IV .[id number] PRN PRN Reason: Additional IVPB Infusion Cefepime HCl 2 gm/ Sodium (Chloride) 100 mls @ 200 mls/hr IV Q24 [facility] Last Infusion: 08/11/19 13:35 Dose: Infused Documented by: Insulin Human Lispro (Humalog Kwikpen (Bkc)) 0 unit SC Q6 [facility]; Protocol Last Admin: 08/11/19 10:52 Dose: Not Given Documented by: Levothyroxine Sodium (Synthroid) 75 mcg PO DAILY@0600 [facility] Last Admin: 08/11/19 06:11 Dose: 75 mcg Documented by: Metoprolol Tartrate (Lopressor (Beta Armani)) 5 mg IV Q6 [facility] Last Admin: 08/11/19 06:06 Dose: 5 mg Documented by: Metronidazole (Flagyl) 500 mg PO TIDCM [facility] Morphine Sulfate () 1 - 2 mg IV Q3H PRN PRN PRN Reason: Pain Score 1-10/10 Last Admin: 08/10/19 23:20 Dose: 2 mg Documented by: Olanzapine (Zyprexa) 20 mg PO DAILY [facility] Last Admin: 08/11/19 09:05 Dose: Not Given Documented by: Prochlorperazine Edisylate (Compazine Iv) 5 mg IV Q4H PRN PRN PRN Reason: Breakthrough Nausea/Vomiting Last Admin: 08/10/19 10:33 Dose: 5 mg Documented by: Promethazine HCl (Phenergan Suppository) 12.5 mg RECTAL Q6H PRN PRN PRN Reason: Breakthrough Nausea/Vomiting Sodium Chloride () 10 - 40 ml IV UD PRN PRN Reason: Open End PICC Flush Last Admin: 08/10/19 17:29 Dose: 20 ml Documented by: Sodium Chloride (0.9% Nacl (Sterile) Posiflush) 10 - 40 ml IV UD PRN PRN Reason: Port access or dressing change Sodium Hypochlorite (Dakins Solution 0.25% (1/2 Strength)) 1 applic TOPICAL BID [facility]; Protocol Last Admin: 08/11/19 09:41 Dose: Not Given Documented by: Trazodone HCl (Desyrel) 25 mg PO QHS [facility] Last Admin: 08/10/19 21:18 Dose: 25 mg Documented by: Venlafaxine HCl (Effexor Xr) 150 mg PO DAILY [facility] Last Admin: 08/11/19 09:05 Dose: Not Given Documented by: Medical Necessity - Tobacco Use Smoking Status: Former smoker Tobacco Use: Vapor Assessment/Plan 1. Severe sepsis secondary to infected stage IV sacral pressure ulcer and possible UTI-wound, urine and blood cultures pending. Urinalysis remarkable for 1+ bacteria, 500 leukocyte, 25-50 WBC. Continue IV cefepime and IV vancomycin pending cultures. 2. Acute hypoxic respiratory failure-improved, unclear etiology. Possibly secondary to bilateral atelectasis. CT of chest without focal infiltrate or pleural effusion. Continue supplement oxygen to maintain O2 at or above 90%. IS. Albuterol and DuoNeb aerosols. Pneumonia ruled out. 3. Infected stage IV sacral pressure ulcer-status post recent debridement due to necrotizing soft tissue infection 07/25/[address] Kaiser, cultures grew Serratia marcescens at that time. Repeat culture preliminary growing staph and gram- positive organism. Consult Dr. Kaiser. Wet to dry dressings with dakins solution. Consult wound RN. Given incontinence, patient may need considered for diverting colostomy. Patient underwent further sacral wound debridement today. Anticipate patient will need LTAC for further management pending diverting colostomy. 4. Acute metabolic encephalopathy-secondary to #1/#2. Treat underlying processes as noted above. Also suspect underlying psychiatric history contributing to current presentation. Mental status improved today. Continue home psychiatric regimen. 5. Type 2 diabetes [id number] with sliding scale insulin. 6. Anxiety/Depression/Bipolar disorder-continue olanzapine, venlafaxine, trazodone, BuSpar, hydroxyzine. 7. Chronic kidney disease stage III-stable, trend BMP. 8. Hypertension-hold BP regimen given hypotension on admission. 9. Hyperlipidemia-continue statin. 10. Hypothyroidism-continue home Synthroid regimen. 11. GERD-continue PPI. 12. Tobacco use via vaping-encourage cessation. DVT prophylaxis-Lovenox subcu This patient was seen by SHERI Degroot under the supervision of Dr. Campos. <Jules Campos F - Last Filed: 08/11/19 16:03> - Physical Exam Vitals/I&O's: Vital Signs Temp Pulse Resp BP Pulse Ox 97 F L 130 H 24 H 109/80 96 08/11/19 13:49 08/11/19 15:30 08/11/19 15:30 08/11/19 15:30 08/11/19 15:30 Oxygen Flow Rate (L/min) 15 Oxygen Delivery Method Bi-pap Weight: 208 lb 8.917 oz Body Mass Index (BMI) 36.9 Intake and Output for Last 24 Hours 08/09/19 08/10/19 08/11/19 23:59 23:59 23:59 Intake Total 3780 / 3880 1280 / 1280 660 / 660 Output Total 950 / 1100 325 / 325 Balance 3780 / 3630 330 / 180 335 / 335 Microbiology Past 72 Hours 08/09/19 Unknown Wound - Buttock Gram Stain - Final 08/09/19 Unknown Wound - Buttock Wound Culture - Preliminary Staphylococcus aureus Gram positive organism Laboratory Results 08/09/19 16:00: Diff Path Review Reviewed 08/10/19 05:30: Diff Path Review Reviewed 08/10/19 17:21: POC Glucose 155 H 08/10/19 23:10: POC Glucose 148 H 08/11/19 06:17: POC Glucose 124 H 08/11/19 06:55: Vancomycin Trough 27.6 H 08/11/19 06:55: Sodium 146 H, Potassium 3.8, Chloride 119 H, Carbon Dioxide 18.0 L, Anion Gap 9, BUN 16, Creatinine 1.15 H, Estim Creat Clear Calc 39.60, Est GFR (MDRD) Af Amer 61, Est GFR (MDRD) Non-Af 51 L, BUN/Creatinine Ratio 13.9, Glucose 137 H, Calcium 8.0 L 08/11/19 08:56: WBC 38.0 H*, RBC 3.53 L, Hgb 11.3 L, Hct 35.8 L, MCV 101.4 H, MCH 32.0, MCHC 31.6 L, RDW Std Deviation 58.2 H, RDW Coeff of Harper 15.9 H, Plt Count 656 H, MPV 9.4, Differential Comment COMMENT, Diff Path Review November08/11/19 10:46: POC Glucose 126 H 08/11/19 14:32: Specimen Type ART, Sample Site L Brachial, pH 7.22 L, Bicarbonate Actual 20.3 L, POC Total CO2 22, Base Excess -7 L, O2 Saturation 89 L, ABG pCO2 50.0 H, ABG pO2 67 L, O2 Delivery Device NRB Mask, Liter Flow 15.0, Blood Gas Notified Whom OTHER, Blood Gas Notified Time 1430 Current Medications Acetaminophen (Tylenol) 650 mg PO Q6H PRN PRN PRN Reason: Pain Score 1-3/Temp > 100.7 F Acetaminophen (Tylenol) 650 mg RECTAL Q4H PRN PRN PRN Reason: Pain Score 1-3/Temp > 100.7 F Albuterol Sulfate (Ventolin Aerosols) 2.5 mg INHALATION Q2H PRN PRN PRN Reason: SOB/Wheezing Allopurinol (Zyloprim) 300 mg PO DAILY [facility] Last Admin: 08/11/19 09:05 Dose: Not Given Documented by: Aspirin (Ecotrin) 81 mg PO QHS [facility] Last Admin: 08/10/19 21:21 Dose: 81 mg Documented by: Atorvastatin Calcium (Lipitor) 80 mg PO QHS [facility] Last Admin: 08/10/19 21:21 Dose: 80 mg Documented by: Benztropine Mesylate (Cogentin) 0.5 mg PO QHS [facility] Last Admin: 08/10/19 21:21 Dose: 0.5 mg Documented by: Buspirone HCl (Buspar) 10 mg PO BID [facility] Last Admin: 08/11/19 09:04 Dose: Not Given Documented by: Cholecalciferol (Vitamin D) 5,000 unit PO DAILY [facility] Last Admin: 08/11/19 08:36 Dose: Not Given Documented by: Cyanocobalamin (Vitamin B12) 1,000 mcg PO DAILY [facility] Last Admin: 08/11/19 08:36 Dose: Not Given Documented by: Glucagon () 1 mg IM .X1 PRN PRN Reason: Hypoglycemia Haloperidol Lactate (Haldol) 1 - 2 mg IV Q4H PRN PRN PRN Reason: SEVERE AGITATION Last Admin: 08/10/19 05:25 Dose: 2 mg Documented by: Vancomycin IV Pharmacy to Dose (1 ea/ Sodium Chloride) 500 mls @ 250 mls/hr IV X1 PRN; Protocol PRN Reason: Rx to Dose Dextrose (Dextrose 10%-Water) 250 mls @ 999 mls/hr IV .Q16M PRN; Protocol PRN Reason: HYPOGLYCEMIA Sodium Chloride () 250 mls @ 15 mls/hr IV .[id number] PRN PRN Reason: Saline Flush Sodium Chloride () 250 mls @ 15 mls/hr IV .[id number] PRN PRN Reason: Additional IVPB Infusion Cefepime HCl 2 gm/ Sodium (Chloride) 100 mls @ 200 mls/hr IV Q24 [facility] Last Infusion: 08/11/19 13:35 Dose: Infused Documented by: Insulin Human Lispro (Humalog Fabiopen (Bkc)) 0 unit SC Q6 [facility]; Protocol Last Admin: 08/11/19 10:52 Dose: Not Given Documented by: Levothyroxine Sodium (Synthroid) 75 mcg PO DAILY@0600 [facility] Last Admin: 08/11/19 06:11 Dose: 75 mcg Documented by: Metoprolol Tartrate (Lopressor (Beta Armani)) 5 mg IV Q6 [facility] Last Admin: 08/11/19 06:06 Dose: 5 mg Documented by: Metronidazole (Flagyl) 500 mg PO TIDCM [facility] Morphine Sulfate () 1 - 2 mg IV Q3H PRN PRN PRN Reason: Pain Score 1-10/10 Last Admin: 08/10/19 23:20 Dose: 2 mg Documented by: Olanzapine (Zyprexa) 20 mg PO DAILY [facility] Last Admin: 08/11/19 09:05 Dose: Not Given Documented by: Prochlorperazine Edisylate (Compazine Iv) 5 mg IV Q4H PRN PRN PRN Reason: Breakthrough Nausea/Vomiting Last Admin: 08/10/19 10:33 Dose: 5 mg Documented by: Promethazine HCl (Phenergan Suppository) 12.5 mg RECTAL Q6H PRN PRN PRN Reason: Breakthrough Nausea/Vomiting Sodium Chloride () 10 - 40 ml IV UD PRN PRN Reason: Open End PICC Flush Last Admin: 08/10/19 17:29 Dose: 20 ml Documented by: Sodium Chloride (0.9% Nacl (Sterile) Posiflush) 10 - 40 ml IV UD PRN PRN Reason: Port access or dressing change Sodium Hypochlorite (Dakins Solution 0.25% (1/2 Strength)) 1 applic TOPICAL BID [facility]; Protocol Last Admin: 08/11/19 09:41 Dose: Not Given Documented by: Trazodone HCl (Desyrel) 25 mg PO QHS [facility] Last Admin: 08/10/19 21:18 Dose: 25 mg Documented by: Venlafaxine HCl (Effexor Xr) 150 mg PO DAILY [facility] Last Admin: 08/11/19 09:05 Dose: Not Given Documented by: Code Visit Addendum: Dr. Campos I personally examined the patient and reviewed the chart. I agree with the above. 63-year-old female who was recently in the TCU presented for hypoxia and possible pneumonia. She did have a CT scan that did not show any focal infiltrate or signs of pneumonia. Pulmonology was consulted and we appreciate their assistance. She has been very confused which does appear to be her baseline per report, however she was given Haldol overnight which did not help and therefore she was ordered Geodon here in the hospital and see if that helps. She also has a large decubitus ulcer, and surgery is been consulted to assist with management as well as infectious disease. The wound is growing a beta- hemolytic and a gram-positive organism, so we will continue with cefepime and vancomycin for now, while culture data is pending. Plans for OR today for debridement. Inpatient E&M: [id number] [facility] H[facility] L2
[2019-08-11 14:36] LABS: Base Excess -7 mmol/L (-2 to +2); Bicarbonate 20.3 mmol/L (22-26); Blood Gas Specimen Type ART; O2 Delivery Device NRB Mask; PO2 67 mmHG (75-100); SITE L Brachial; SO2 89 % (95-99); Time Given 1430; Total Carbon Dioxide 22 mmol/L; pH 7.22 (7.35-7.45)
--- NOTE | 2019-08-11 14:58 | PN_ITS ---
Subjective: Patient did okay through the morning. Patient was seen by plastics and went back for debridement. In the PACU, patient was noted to have respiratory distress. ABG was obtained and patient was placed on AVAPS with improved response. Patient was evaluated in the PACU. Patient was not able to provide any history. Patient reportedly tolerated procedure well. General: Confused, Disoriented, Lethargic, Non-Cooperative, - - Obese. Good BiPAP synchrony noted. HEENT: Atraumatic, PERRLA, EOMI, Normocephalic, - - No scleral icterus or injection noted Oral: Moist Mucosa, No Gingival or Mucosal Lesions/ Ulcerations Neck: Supple, No JVD, No Nodes, Trachea Midline Lungs: No rhonchi, No wheeze, No rales, Diminished, - - Symmetric expansion. No dullness to percussion. Patient did receive an aerosol prior to my evaluation Cardiovascular: Regular Rhythm, Normal S1, Normal S2, No murmurs, No rub noted, No Gallop, Tachycardic Abdomen: Bowel Sounds Present, Soft, Non Tender, Non-Distended Extremities: No clubbing, No cyanosis, Edema Skin: Ulcer/ Wound - Not evaluated personally Musculoskeletal: No Tenderness to Palpation of Joints or Extremities Lymphatic: No Cervical, Supraclavicular, or Inguinal Adenopathy Neurological: Cranial nerves II-XII grossly intact, Neuro grossly intact, Motor Exam 5/5 strength throughout Psych/Mental Status: Flat Affect Vital Signs Temp Pulse Resp BP Pulse Ox 36.1 C L 131 H 24 H 119/88 H 90 08/11/19 13:49 08/11/19 14:00 08/11/19 14:00 08/11/19 14:00 08/11/19 14:00 Oxygen Flow Rate (L/min) 15 Oxygen Delivery Method Non-Rebreather Weight: 94.6 kg Body Mass Index (BMI) 36.9 Intake and Output for Last 24 Hours 08/09/19 08/10/19 08/11/19 23:59 23:59 23:59 Intake Total 3780 / 3880 1280 / 1280 660 / 660 Output Total 950 / 1100 325 / 325 Balance 3780 / 3630 330 / 180 335 / 335 Labs (Last 48 Hours) 08/09/19 08/09/19 08/09/19 16:00 16:00 16:00 WBC 28.9 H RBC 3.38 L Hgb 10.6 L Hct 34.7 L MCV 102.7 H MCH 31.4 MCHC 30.5 L RDW Std Deviation 59.5 H RDW Coeff of Harper 15.9 H Plt Count 520 H MPV 9.6 Immature Gran % (Auto) 4.800 H Neut % (Auto) 72.2 H Lymph % (Auto) 13.2 L [place] % (Auto) 8.1 Eos % (Auto) 1.0 Baso % (Auto) 0.7 Absolute Neuts (auto) 20.9 H Absolute Lymphs (auto) 3.81 Total Counted Neutrophils % (Manual) Band Neutrophils % Lymphocytes % (Manual) Monocytes % (Manual) Eosinophils % (Manual) Basophils % (Manual) Myelocytes % Promyelocytes % Nucleated RBC % 0.2 Differential Comment SCANNED Diff Path Review Reviewed Platelet Estimate RBC Morphology PT 17.3 H INR 1.4 Specimen Type Sample Site pH Bicarbonate Actual POC Total CO2 Base Excess O2 Saturation ABG pCO2 ABG pO2 VBG pH VBG pO2 VBG O2 Sat (Calc) VBG O2 Content VBG Base Excess POC Mix VBG pCO2 Pt Tmp O2 Delivery Device Liter Flow Blood Gas Notified Whom Blood Gas Notified Time Sodium 143 Potassium 3.4 L Chloride 112 H Carbon Dioxide 25.0 Anion Gap 6 BUN 23 H Creatinine 1.16 H Estim Creat Clear Calc 41.06 Est GFR (MDRD) Af Amer 61 Est GFR (MDRD) Non-Af 50 L BUN/Creatinine Ratio 19.8 Glucose 114 H Lactic Acid Calcium 8.4 L Phosphorus Magnesium Total Bilirubin Direct Bilirubin AST ALT Alkaline Phosphatase Troponin I < 0.015 B-Natriuretic Peptide Total Protein Albumin Globulin Urine Color Urine Clarity Urine pH Ur Specific [place] Urine Protein Urine Glucose (UA) Urine Ketones Urine Occult Blood Urine Nitrite Urine Bilirubin Urine Urobilinogen Ur Leukocyte Esterase Urine RBC Urine WBC Ur Squamous Epith Cells Urine Bacteria Coarse Granular Casts Urine Mucus Urine Yeast Vancomycin Trough MRSA (PCR) POC Glucose 08/09/19 08/09/19 08/09/19 16:00 16:00 16:00 WBC RBC Hgb Hct MCV MCH MCHC RDW Std Deviation RDW Coeff of Harper Plt Count MPV Immature Gran % (Auto) Neut % (Auto) Lymph % (Auto) [place] % (Auto) Eos % (Auto) Baso % (Auto) Absolute Neuts (auto) Absolute Lymphs (auto) Total Counted Neutrophils % (Manual) Band Neutrophils % Lymphocytes % (Manual) Monocytes % (Manual) Eosinophils % (Manual) Basophils % (Manual) Myelocytes % Promyelocytes % Nucleated RBC % Differential Comment Diff Path Review Platelet Estimate RBC Morphology PT INR Specimen Type Sample Site pH Bicarbonate Actual POC Total CO2 Base Excess O2 Saturation ABG pCO2 ABG pO2 VBG pH VBG pO2 VBG O2 Sat (Calc) VBG O2 Content VBG Base Excess POC Mix VBG pCO2 Pt Tmp O2 Delivery Device Liter Flow Blood Gas Notified Whom Blood Gas Notified Time Sodium Potassium Chloride Carbon Dioxide Anion Gap BUN Creatinine Estim Creat Clear Calc Est GFR (MDRD) Af Amer Est GFR (MDRD) Non-Af BUN/Creatinine Ratio Glucose Lactic Acid 1.4 Calcium Phosphorus 2.1 L Magnesium 2.4 Total Bilirubin 0.30 Direct Bilirubin 0.26 AST 57 H ALT 26 Alkaline Phosphatase 250 H Troponin I B-Natriuretic Peptide Total Protein 5.8 L Albumin 1.4 L Globulin 4.4 H Urine Color Urine Clarity Urine pH Ur Specific [place] Urine Protein Urine Glucose (UA) Urine Ketones Urine Occult Blood Urine Nitrite Urine Bilirubin Urine Urobilinogen Ur Leukocyte Esterase Urine RBC Urine WBC Ur Squamous Epith Cells Urine Bacteria Coarse Granular Casts Urine Mucus Urine Yeast Vancomycin Trough MRSA (PCR) POC Glucose 08/09/19 08/09/19 08/09/19 19:32 19:45 19:52 WBC RBC Hgb Hct MCV MCH MCHC RDW Std Deviation RDW Coeff of Harper Plt Count MPV Immature Gran % (Auto) Neut % (Auto) Lymph % (Auto) [place] % (Auto) Eos % (Auto) Baso % (Auto) Absolute Neuts (auto) Absolute Lymphs (auto) Total Counted Neutrophils % (Manual) Band Neutrophils % Lymphocytes % (Manual) Monocytes % (Manual) Eosinophils % (Manual) Basophils % (Manual) Myelocytes % Promyelocytes % Nucleated RBC % Differential Comment Diff Path Review Platelet Estimate RBC Morphology PT INR Specimen Type ALCIDES Sample Site OTHER pH Bicarbonate Actual POC Total CO2 Base Excess O2 Saturation ABG pCO2 ABG pO2 VBG pH 7.45 H VBG pO2 33 VBG O2 Sat (Calc) 68 VBG O2 Content 23 VBG Base Excess -2 L POC Mix VBG pCO2 Pt Tmp 32.1 L O2 Delivery Device Room Air Liter Flow Blood Gas Notified Whom [facility] Blood Gas Notified Time 1950 Sodium Potassium Chloride Carbon Dioxide Anion Gap BUN Creatinine Estim Creat Clear Calc Est GFR (MDRD) Af Amer Est GFR (MDRD) Non-Af BUN/Creatinine Ratio Glucose Lactic Acid Calcium Phosphorus Magnesium Total Bilirubin Direct Bilirubin AST ALT Alkaline Phosphatase Troponin I B-Natriuretic Peptide Total Protein Albumin Globulin Urine Color Urine Clarity Urine pH Ur Specific [place] Urine Protein Urine Glucose (UA) Urine Ketones Urine Occult Blood Urine Nitrite Urine Bilirubin Urine Urobilinogen Ur Leukocyte Esterase Urine RBC Urine WBC Ur Squamous Epith Cells Urine Bacteria Coarse Granular Casts Urine Mucus Urine Yeast Vancomycin Trough MRSA (PCR) Negative POC Glucose 134 H 08/10/19 08/10/19 08/10/19 01:51 04:20 05:30 WBC RBC Hgb Hct MCV MCH MCHC RDW Std Deviation RDW Coeff of Harper Plt Count MPV Immature Gran % (Auto) Neut % (Auto) Lymph % (Auto) [place] % (Auto) Eos % (Auto) Baso % (Auto) Absolute Neuts (auto) Absolute Lymphs (auto) Total Counted Neutrophils % (Manual) Band Neutrophils % Lymphocytes % (Manual) Monocytes % (Manual) Eosinophils % (Manual) Basophils % (Manual) Myelocytes % Promyelocytes % Nucleated RBC % Differential Comment Diff Path Review Platelet Estimate RBC Morphology PT INR Specimen Type Sample Site pH Bicarbonate Actual POC Total CO2 Base Excess O2 Saturation ABG pCO2 ABG pO2 VBG pH VBG pO2 VBG O2 Sat (Calc) VBG O2 Content VBG Base Excess POC Mix VBG pCO2 Pt Tmp O2 Delivery Device Liter Flow Blood Gas Notified Whom Blood Gas Notified Time Sodium 144 Potassium 3.5 Chloride 116 H Carbon Dioxide 21.0 Anion Gap 7 BUN 19 H Creatinine 1.11 H Estim Creat Clear Calc 41.03 Est GFR (MDRD) Af Amer 64 Est GFR (MDRD) Non-Af 53 L BUN/Creatinine Ratio 17.1 Glucose 120 H Lactic Acid Calcium 8.0 L Phosphorus Magnesium 2.1 Total Bilirubin Direct Bilirubin AST ALT Alkaline Phosphatase Troponin I B-Natriuretic Peptide Total Protein Albumin Globulin Urine Color Yellow Urine Clarity Cloudy Urine pH 6.0 Ur Specific [place] 1.020 Urine Protein 30 H Urine Glucose (UA) 250 H Urine Ketones 5 H Urine Occult Blood 10 H Urine Nitrite Negative Urine Bilirubin Negative Urine Urobilinogen Normal Ur Leukocyte Esterase 500 H Urine RBC 0 SEEN Urine WBC 25-50 SEEN Ur Squamous Epith Cells 0-5 SEEN Urine Bacteria 1+ Coarse Granular Casts 0-5 SEEN Urine Mucus 0 SEEN Urine Yeast 3+ Vancomycin Trough MRSA (PCR) POC Glucose 110 08/10/19 08/10/19 08/10/19 05:30 05:30 05:30 WBC 29.2 H RBC 3.34 L Hgb 10.7 L Hct 34.3 L MCV 102.7 H MCH 32.0 MCHC 31.2 L RDW Std Deviation 58.1 H RDW Coeff of Harper 15.7 H Plt Count 566 H MPV 9.4 Immature Gran % (Auto) Neut % (Auto) Not Reportable Lymph % (Auto) [place] % (Auto) Eos % (Auto) Baso % (Auto) Absolute Neuts (auto) 22.7 H Absolute Lymphs (auto) 3.80 Total Counted 100 Neutrophils % (Manual) 77 H Band Neutrophils % 1 Lymphocytes % (Manual) 13 L Monocytes % (Manual) 5 Eosinophils % (Manual) 1 Basophils % (Manual) 1 Myelocytes % 1 H Promyelocytes % 1 H Nucleated RBC % Differential Comment Diff Path Review Reviewed Platelet Estimate SLT INC RBC Morphology NORM C+C PT 18.5 H INR 1.6 Specimen Type Sample Site pH Bicarbonate Actual POC Total CO2 Base Excess O2 Saturation ABG pCO2 ABG pO2 VBG pH VBG pO2 VBG O2 Sat (Calc) VBG O2 Content VBG Base Excess POC Mix VBG pCO2 Pt Tmp O2 Delivery Device Liter Flow Blood Gas Notified Whom Blood Gas Notified Time Sodium Potassium Chloride Carbon Dioxide Anion Gap BUN Creatinine Estim Creat Clear Calc Est GFR (MDRD) Af Amer Est GFR (MDRD) Non-Af BUN/Creatinine Ratio Glucose Lactic Acid Calcium Phosphorus 2.3 L Magnesium Total Bilirubin Direct Bilirubin AST ALT Alkaline Phosphatase Troponin I B-Natriuretic Peptide Total Protein Albumin Globulin Urine Color Urine Clarity Urine pH Ur Specific [place] Urine Protein Urine Glucose (UA) Urine Ketones Urine Occult Blood Urine Nitrite Urine Bilirubin Urine Urobilinogen Ur Leukocyte Esterase Urine RBC Urine WBC Ur Squamous Epith Cells Urine Bacteria Coarse Granular Casts Urine Mucus Urine Yeast Vancomycin Trough MRSA (PCR) POC Glucose 08/10/19 08/10/19 08/10/19 05:30 11:38 15:18 WBC RBC Hgb Hct MCV MCH MCHC RDW Std Deviation RDW Coeff of Harper Plt Count MPV Immature Gran % (Auto) Neut % (Auto) Lymph % (Auto) [place] % (Auto) Eos % (Auto) Baso % (Auto) Absolute Neuts (auto) Absolute Lymphs (auto) Total Counted Neutrophils % (Manual) Band Neutrophils % Lymphocytes % (Manual) Monocytes % (Manual) Eosinophils % (Manual) Basophils % (Manual) Myelocytes % Promyelocytes % Nucleated RBC % Differential Comment Diff Path Review Platelet Estimate RBC Morphology PT INR Specimen Type Sample Site pH Bicarbonate Actual POC Total CO2 Base Excess O2 Saturation ABG pCO2 ABG pO2 VBG pH VBG pO2 VBG O2 Sat (Calc) VBG O2 Content VBG Base Excess POC Mix VBG pCO2 Pt Tmp O2 Delivery Device Liter Flow Blood Gas Notified Whom Blood Gas Notified Time Sodium Potassium Chloride Carbon Dioxide Anion Gap BUN Creatinine Estim Creat Clear Calc Est GFR (MDRD) Af Amer Est GFR (MDRD) Non-Af BUN/Creatinine Ratio Glucose Lactic Acid Calcium Phosphorus Magnesium Total Bilirubin Direct Bilirubin AST ALT Alkaline Phosphatase Troponin I B-Natriuretic Peptide 20.6 Total Protein Albumin Globulin Urine Color Urine Clarity Urine pH Ur Specific [place] Urine Protein Urine Glucose (UA) Urine Ketones Urine Occult Blood Urine Nitrite Urine Bilirubin Urine Urobilinogen Ur Leukocyte Esterase Urine RBC Urine WBC Ur Squamous Epith Cells Urine Bacteria Coarse Granular Casts Urine Mucus Urine Yeast Vancomycin Trough MRSA (PCR) POC Glucose 125 H 117 H 08/10/19 08/10/19 08/11/19 17:21 23:10 06:17 WBC RBC Hgb Hct MCV MCH MCHC RDW Std Deviation RDW Coeff of Harper Plt Count MPV Immature Gran % (Auto) Neut % (Auto) Lymph % (Auto) [place] % (Auto) Eos % (Auto) Baso % (Auto) Absolute Neuts (auto) Absolute Lymphs (auto) Total Counted Neutrophils % (Manual) Band Neutrophils % Lymphocytes % (Manual) Monocytes % (Manual) Eosinophils % (Manual) Basophils % (Manual) Myelocytes % Promyelocytes % Nucleated RBC % Differential Comment Diff Path Review Platelet Estimate RBC Morphology PT INR Specimen Type Sample Site pH Bicarbonate Actual POC Total CO2 Base Excess O2 Saturation ABG pCO2 ABG pO2 VBG pH VBG pO2 VBG O2 Sat (Calc) VBG O2 Content VBG Base Excess POC Mix VBG pCO2 Pt Tmp O2 Delivery Device Liter Flow Blood Gas Notified Whom Blood Gas Notified Time Sodium Potassium Chloride Carbon Dioxide Anion Gap BUN Creatinine Estim Creat Clear Calc Est GFR (MDRD) Af Amer Est GFR (MDRD) Non-Af BUN/Creatinine Ratio Glucose Lactic Acid Calcium Phosphorus Magnesium Total Bilirubin Direct Bilirubin AST ALT Alkaline Phosphatase Troponin I B-Natriuretic Peptide Total Protein Albumin Globulin Urine Color Urine Clarity Urine pH Ur Specific [place] Urine Protein Urine Glucose (UA) Urine Ketones Urine Occult Blood Urine Nitrite Urine Bilirubin Urine Urobilinogen Ur Leukocyte Esterase Urine RBC Urine WBC Ur Squamous Epith Cells Urine Bacteria Coarse Granular Casts Urine Mucus Urine Yeast Vancomycin Trough MRSA (PCR) POC Glucose 155 H 148 H 124 H 08/11/19 08/11/19 08/11/19 06:55 06:55 08:56 WBC 38.0 H* RBC 3.53 L Hgb 11.3 L Hct 35.8 L MCV 101.4 H MCH 32.0 MCHC 31.6 L RDW Std Deviation 58.2 H RDW Coeff of Harper 15.9 H Plt Count 656 H MPV 9.4 Immature Gran % (Auto) Neut % (Auto) Lymph % (Auto) [place] % (Auto) Eos % (Auto) Baso % (Auto) Absolute Neuts (auto) Absolute Lymphs (auto) Total Counted Neutrophils % (Manual) Band Neutrophils % Lymphocytes % (Manual) Monocytes % (Manual) Eosinophils % (Manual) Basophils % (Manual) Myelocytes % Promyelocytes % Nucleated RBC % Differential Comment COMMENT Diff Path Review May foll Platelet Estimate RBC Morphology PT INR Specimen Type Sample Site pH Bicarbonate Actual POC Total CO2 Base Excess O2 Saturation ABG pCO2 ABG pO2 VBG pH VBG pO2 VBG O2 Sat (Calc) VBG O2 Content VBG Base Excess POC Mix VBG pCO2 Pt Tmp O2 Delivery Device Liter Flow Blood Gas Notified Whom Blood Gas Notified Time Sodium 146 H Potassium 3.8 Chloride 119 H Carbon Dioxide 18.0 L Anion Gap 9 BUN 16 Creatinine 1.15 H Estim Creat Clear Calc 39.60 Est GFR (MDRD) Af Amer 61 Est GFR (MDRD) Non-Af 51 L BUN/Creatinine Ratio 13.9 Glucose 137 H Lactic Acid Calcium 8.0 L Phosphorus Magnesium Total Bilirubin Direct Bilirubin AST ALT Alkaline Phosphatase Troponin I B-Natriuretic Peptide Total Protein Albumin Globulin Urine Color Urine Clarity Urine pH Ur Specific [place] Urine Protein Urine Glucose (UA) Urine Ketones Urine Occult Blood Urine Nitrite Urine Bilirubin Urine Urobilinogen Ur Leukocyte Esterase Urine RBC Urine WBC Ur Squamous Epith Cells Urine Bacteria Coarse Granular Casts Urine Mucus Urine Yeast Vancomycin Trough 27.6 H MRSA (PCR) POC Glucose 02/03/20 02/03/20 10:46 14:32 WBC RBC Hgb Hct MCV MCH MCHC RDW Std Deviation RDW Coeff of Harper Plt Count MPV Immature Gran % (Auto) Neut % (Auto) Lymph % (Auto) [place] % (Auto) Eos % (Auto) Baso % (Auto) Absolute Neuts (auto) Absolute Lymphs (auto) Total Counted Neutrophils % (Manual) Band Neutrophils % Lymphocytes % (Manual) Monocytes % (Manual) Eosinophils % (Manual) Basophils % (Manual) Myelocytes % Promyelocytes % Nucleated RBC % Differential Comment Diff Path Review Platelet Estimate RBC Morphology PT INR Specimen Type ART Sample Site L Brachial pH 7.22 L Bicarbonate Actual 20.3 L POC Total CO2 22 Base Excess -7 L O2 Saturation 89 L ABG pCO2 50.0 H ABG pO2 67 L VBG pH VBG pO2 VBG O2 Sat (Calc) VBG O2 Content VBG Base Excess POC Mix VBG pCO2 Pt Tmp O2 Delivery Device NRB Mask Liter Flow 15.0 Blood Gas Notified Whom OTHER Blood Gas Notified Time 1430 Sodium Potassium Chloride Carbon Dioxide Anion Gap BUN Creatinine Estim Creat Clear Calc Est GFR (MDRD) Af Amer Est GFR (MDRD) Non-Af BUN/Creatinine Ratio Glucose Lactic Acid Calcium Phosphorus Magnesium Total Bilirubin Direct Bilirubin AST ALT Alkaline Phosphatase Troponin I B-Natriuretic Peptide Total Protein Albumin Globulin Urine Color Urine Clarity Urine pH Ur Specific [place] Urine Protein Urine Glucose (UA) Urine Ketones Urine Occult Blood Urine Nitrite Urine Bilirubin Urine Urobilinogen Ur Leukocyte Esterase Urine RBC Urine WBC Ur Squamous Epith Cells Urine Bacteria Coarse Granular Casts Urine Mucus Urine Yeast Vancomycin Trough MRSA (PCR) POC Glucose 126 H Microbiology 08/09/19 Unknown Wound - Buttock Gram Stain - Final 08/09/19 Unknown Wound - Buttock Wound Culture - Preliminary Staphylococcus aureus Gram positive organism Clinical Impression(s) from Imaging Studies Pelvis CT 08/11/19 07:52 IMPRESSION: Large soft tissue gap most likely secondary to debridement overlying the right gluteus muscle. Focal scalloping of the posterior margin of the right hemisacrum. Osteomyelitis should be ruled out. Electronically Signed: Alan Dennis, at 11:07 EST , Service support , Medical Necessity - Tobacco Use Smoking Status: Former smoker Tobacco Use: Vapor Assessment/Plan RECOMMENDATIONS: 1. Continue cefepime and continue vancomycin as ordered. 2. Await plastic surgery reevaluation. Continue local wound care. Possible diverting colostomy 3. Wean supplemental oxygen to maintain saturations at or above 90%. 4. Encourage incentive spirometer use. 5. Consider obtaining echocardiogram. 6. ABG in an hour. BiPAP breaks as tolerated. IMPRESSIONS: 1. Severe sepsis Patient underwent surgical debridement today by plastic surgery. Cultures are currently pending. Patient is on cefepime and vancomycin, which should cover reported organisms. Patient may require diverting colostomy, but general surgery is not evaluated. This was not completed during today's operative procedure. 2. Encephalopathy While the patient does have underlying psychiatric manifestations, I do suspect that her altered mentation is likely the consequence of her infectious processes. Continue baseline psychiatric medications. Antibiotics will be continued to address her infectious etiologies. 3. Acute on chronic hypercarbic respiratory failure?obstructive sleep apnea Patient with combined acidosis on ABG postoperatively. Patient appears to be responding well to BiPAP therapy. Likely combination of surgical procedure, anesthesia and baseline respiratory status. We will continue with AVAPS overnight. ABG in an hour. 4. History of bipolar disorder/diabetes mellitus/hyp ertension/hyperlipidemia/obesity/chronic kidney disease Complicates care, management, recovery and prognosis. Continue home medications as indicated. Code Visit Inpatient E&M: [id number] [facility] L3
--- NOTE | 2019-08-11 15:10 | CPS ---
This RT gave critical ABG values to at 1435 J.Kaelyn [employer]
[2019-08-11 16:06] LABS: Bedside Glucose 134 mg/dL (70-110)
--- NOTE | 2019-08-11 17:06 | SUR.PHASEI ---
1635 REPORT CALLED TO CHRIS AREVALO RN ON PCU. PT STATUS UPDATE GIVEN INCLUDING VENOUS ABG RESULT, PH 7.33. PT TRANSFERRED ON MONITOR ON 6L VIA NC WITH THIS NURSE. RT TO FOLLOW TO PLACE BIPAP AT BEDSIDE. 1645 ARRIVED TO TRANSFERRED PT TO PCU MONITOR, PULSE OX 93 % ON 6 L PER NC. RT AND CHRIS AREVALO RN AND BILINGUAL SECRETARY AT BEDSIDE.
[2019-08-11] MEDS: 0.9% Saline Lock 10 ML Syringe IV ×3 (17:15→23:28)
[2019-08-11] MEDS: busPIRone 5 MG Tablet 10 MG PO (17:18)
[2019-08-11] MEDS: Allopurinol 300 MG Tablet PO (17:18)
[2019-08-11] MEDS: metroNIDAZOLE 500 MG Tablet PO (17:19)
[2019-08-11] MEDS: Venlafaxine XR 150 MG Capsule PO (17:19)
[2019-08-11] MEDS: OLANZapine 10 MG Tablet 20 MG PO (17:19)
[2019-08-11 17:55] LABS: Bedside Glucose 131 mg/dL (70-110)
[2019-08-11 17:55] LABS: Blood Gas Specimen Type VEN; EPAP 8; FI02 50; RR 12; Time Given 1622; VBG BASE EXCESS -7 mmol/L (-1.0-3.5); VBG Bicarbonate 19 mmol/L (22-26); VBG Oxygen Content 20 mmol/L (23-33); VBG PO2 35 mmHg (25-40); VBG SO2 64 % (50-70); VBG pCO2 34.7 mmHg (41-51); VBG pH 7.34 (7.32-7.42)
[2019-08-11] MEDS: Morphine 2 MG/ML Syringe IV (18:50)
[2019-08-11] MEDS: Aspirin E.C. 81 MG Tablet PO (20:49)
[2019-08-11] MEDS: Benztropine 2 MG Tablet 0.5 MG PO (20:49)
[2019-08-11] MEDS: traZODone 50 MG Tablet 25 MG PO (20:49)
[2019-08-11] MEDS: Atorvastatin Calcium 80 MG Tablet PO (20:49)
[2019-08-11 23:40] LABS: Bedside Glucose 138 mg/dL (70-110)
[2019-08-12] VITALS (18 sets, daily range): BP systolic 103–137; BP diastolic 48–97; PULSE 102–118; RESP 12–20; TEMP 36.2–36.8; O2SAT 94–98; BMI 36.9
[2019-08-12] MEDS: Haloperidol Lactate 5 MG/ML Vial IV ×2 (00:22→05:06)
[2019-08-12] MEDS: 0.9% Saline Lock 10 ML Syringe IV ×3 (00:22→05:27)
[2019-08-12] MEDS: Metoprolol Tartrate 5 MG/5 ML Vial IV ×3 (05:30→17:55)
[2019-08-12 05:40] LABS: Bedside Glucose 125 mg/dL (70-110)
[2019-08-12 08:25] LABS: Hematocrit 32.9 % (37-47); Hemoglobin 10.2 g/dL (12.0-15.0); Mean Corpuscular Volume 103.1 fL (81-99); Mean Platelet Vol. 9.2 fl (6.2-12.0); POSITIVE COUNT YES; Platelet Count 585 K/mm3 (150-450); RBC Distribution Width CV 16.1 % (11.6-14.6); RBC Distribution Width SD 60.4 fl (35.1-43.9); Red Blood Count 3.19 M/mm3 (4.2-5.4); White Blood Count 36.2 K/mm3 (4.4-11.0)
[2019-08-12 08:39] LABS: Scan Indicated on CBC? Y/N YES- FLAGS NOTED
[2019-08-12 08:55] LABS: Vancomycin, Random Level 27.3 ug/mL (0.0-15.0)
[2019-08-12 09:11] LABS: Anion Gap 7 (5-15); BUN 22 mg/dL (7-18); BUN/Creat Ratio 11.6 RATIO (10-20); Calcium,Total 7.8 mg/dL (8.5-10.1); Chloride 120 mmol/L (98-107); EST Glomerular Filtration Rate 28 mL/min (>60); Est Glom Filt Rate - Afr Amer 34 mL/min (>60); Estimated Creatinine Clearance 23.97 ml/min; Glucose 121 mg/dL (74-106); Potassium 3.6 mmol/L (3.5-5.1); Prealbumin 5.4 mg/dL (20.0-40.0); Sodium Level 147 mmol/L (136-145)
[2019-08-12] MEDS: busPIRone 5 MG Tablet 10 MG PO ×2 (09:47→23:16)
[2019-08-12] MEDS: Allopurinol 300 MG Tablet PO (09:48)
[2019-08-12] MEDS: Venlafaxine XR 150 MG Capsule PO (09:48)
[2019-08-12] MEDS: OLANZapine 10 MG Tablet 20 MG PO (09:48)
[2019-08-12] MEDS: Cyanocobalamin 500 MCG Tablet 1000 MCG PO (09:48)
[2019-08-12] MEDS: metroNIDAZOLE 500 MG Tablet PO ×3 (09:48→17:56)
--- NOTE | 2019-08-12 09:48 | PCM.PN.PUL ---
Subjective: Patient did okay overnight. Patient was on BiPAP throughout the evening, but was able to be weaned to 8 L nasal cannula this morning. Patient was reporting some shortness of breath, but mentation was much improved compared to previous. Patient was able to tolerate breakfast without complication. - Physical Exam Vitals/I&O's: Vital Signs Temp Pulse Resp BP Pulse Ox 36.8 C 108 H 20 H 113/78 94 08/12/19 08:00 08/12/19 08:00 08/12/19 08:00 08/12/19 08:00 08/12/19 08:00 Oxygen Flow Rate (L/min) 8 Oxygen Delivery Method Nasal Cannula Weight: 99.3 kg Body Mass Index (BMI) 36.9 Finger Stick Blood Glucose 134 Intake and Output for Last 24 Hours 08/10/19 08/11/19 08/12/19 23:59 23:59 23:59 Intake Total 1280 / 1280 840 / 840 500 / 500 Output Total 950 / 1100 550 / 550 0 / 0 Balance 330 / 180 290 / 290 500 / 500 General: Alert, Oriented x3, Cooperative, No apparent distress, - - Obese. No conversational dyspnea. HEENT: Atraumatic, PERRLA, EOMI, Normocephalic, - - No scleral icterus or injection noted Oral: Moist Mucosa, No Gingival or Mucosal Lesions/ Ulcerations Neck: Supple, No Nodes, Trachea Midline, JVD, Right Lungs: No rhonchi, No rales, Diminished, Wheezes, - - Symmetric expansion Cardiovascular: Normal S1, Normal S2, No murmurs, No rub noted, No Gallop, Tachycardic Abdomen: Bowel Sounds Present, Soft, Non Tender, Non-Distended, Obese Extremities: No cyanosis, Capillary Refill Less than 3 Seconds, Edema Skin: - - No significant change compared to previous Musculoskeletal: No Tenderness to Palpation of Joints or Extremities Lymphatic: No Cervical, Supraclavicular, or Inguinal Adenopathy Neurological: Cranial nerves II-XII grossly intact, Neuro grossly intact, Motor Exam 5/5 strength throughout Psych/Mental Status: Anxious, Flat Affect Microbiology Past 72 Hours 08/09/19 Unknown Wound - Buttock Gram Stain - Final 08/09/19 Unknown Wound - Buttock Wound Culture - Preliminary Staphylococcus aureus Gram positive organism Laboratory Results 08/09/19 16:00: Diff Path Review Reviewed 08/10/19 05:30: Diff Path Review Reviewed 08/11/19 08:56: Differential Comment COMMENT, Diff Path Review November [facility] 08/11/19 10:46: POC Glucose 126 H 08/11/19 14:32: Specimen Type ART, Sample Site L Brachial, pH 7.22 L, Bicarbonate Actual 20.3 L, POC Total CO2 22, Base Excess -7 L, O2 Saturation 89 L, ABG pCO2 50.0 H, ABG pO2 67 L, O2 Delivery Device NRB Mask, Liter Flow 15.0, Blood Gas Notified Whom OTHER, Blood Gas Notified Time 1430 08/11/19 15:51: POC Glucose 134 H 08/11/19 16:25: Specimen Type ALCIDES, O2 % 50, VBG pH 7.34, VBG pO2 35, VBG O2 Sat (Calc) 64, VBG O2 Content 20 L, VBG Base Excess -7 L, POC Mix VBG pCO2 Pt Tmp 34.7 L, Respiration Rate 12, O2 Delivery Device Bi / C PAP, EPAP 8, Blood Gas Notified Whom ICU MD, Blood Gas Notified Time 16208/11/19 17:23: POC Glucose 131 H 08/11/19 23:28: POC Glucose 138 H 08/12/19 05:34: POC Glucose 125 H 08/12/19 07:56: Random Vancomycin 27.3 H 08/12/19 07:56: WBC 36.2 H*, RBC 3.19 L, Hgb 10.2 L, Hct 32.9 L, MCV 103.1 H, MCH 32.0, MCHC 31.0 L, RDW Std Deviation 60.4 H, RDW Coeff of Harper 16.1 H, Plt Count 585 H, MPV 9.2, Differential Comment , Diff Path Review November08/12/19 07:56: Sodium 147 H, Potassium 3.6, Chloride 120 H, Carbon Dioxide 20.0 L, Anion Gap 7, BUN 22 H, Creatinine 1.90 H, Estim Creat Clear Calc 23.97, Est GFR (MDRD) Af Amer 34 L, Est GFR (MDRD) Non-Af 28 L, BUN/Creatinine Ratio 11.6, Glucose 121 H, Calcium 7.8 L, Prealbumin 5.4 L Current Medications Acetaminophen (Tylenol) 650 mg PO Q6H PRN PRN PRN Reason: Pain Score 1-3/Temp > 100.7 F Acetaminophen (Tylenol) 650 mg RECTAL Q4H PRN PRN PRN Reason: Pain Score 1-3/Temp > 100.7 F Albuterol Sulfate (Ventolin Aerosols) 2.5 mg INHALATION Q2H PRN PRN PRN Reason: SOB/Wheezing Allopurinol (Zyloprim) 300 mg PO DAILY [facility] Last Admin: 08/11/19 17:18 Dose: 300 mg Documented by: Aspirin (Ecotrin) 81 mg PO QHS [facility] Last Admin: 08/11/19 20:49 Dose: 81 mg Documented by: Atorvastatin Calcium (Lipitor) 80 mg PO QHS [facility] Last Admin: 08/11/19 20:49 Dose: 80 mg Documented by: Benztropine Mesylate (Cogentin) 0.5 mg PO QHS [facility] Last Admin: 08/11/19 20:49 Dose: 0.5 mg Documented by: Buspirone HCl (Buspar) 10 mg PO BID [facility] Last Admin: 08/11/19 17:18 Dose: 10 mg Documented by: Cholecalciferol (Vitamin D) 5,000 unit PO DAILY [facility] Last Admin: 08/11/19 08:36 Dose: Not Given Documented by: Cyanocobalamin (Vitamin B12) 1,000 mcg PO DAILY [facility] Last Admin: 08/11/19 08:36 Dose: Not Given Documented by: Glucagon () 1 mg IM .X1 PRN PRN Reason: Hypoglycemia Haloperidol Lactate (Haldol) 1 - 2 mg IV Q4H PRN PRN PRN Reason: SEVERE AGITATION Last Admin: 08/12/19 05:06 Dose: 1 mg Documented by: Vancomycin IV Pharmacy to Dose (1 ea/ Sodium Chloride) 500 mls @ 250 mls/hr IV X1 PRN; Protocol PRN Reason: Rx to Dose Dextrose (Dextrose 10%-Water) 250 mls @ 999 mls/hr IV .Q16M PRN; Protocol PRN Reason: HYPOGLYCEMIA Sodium Chloride () 250 mls @ 15 mls/hr IV .[id number] PRN PRN Reason: Saline Flush Sodium Chloride () 250 mls @ 15 mls/hr IV .[id number] PRN PRN Reason: Additional IVPB Infusion Cefepime HCl 2 gm/ Sodium (Chloride) 100 mls @ 200 mls/hr IV Q24 [facility] Last Infusion: 08/11/19 13:35 Dose: Infused Documented by: Insulin Human Lispro (Humalog Kwikpen (Bkc)) 0 unit SC Q6 [facility]; Protocol Last Admin: 08/12/19 05:35 Dose: Not Given Documented by: Levothyroxine Sodium (Synthroid) 75 mcg PO DAILY@0600 [facility] Last Admin: 08/12/19 05:40 Dose: Not Given Documented by: Metoprolol Tartrate (Lopressor (Beta Armani)) 5 mg IV Q6 [facility] Last Admin: 08/12/19 05:30 Dose: 5 mg Documented by: Metronidazole (Flagyl) 500 mg PO TIDCM [facility] Last Admin: 08/11/19 17:19 Dose: 500 mg Documented by: Morphine Sulfate () 1 - 2 mg IV Q3H PRN PRN PRN Reason: Pain Score 1-10/10 Last Admin: 08/11/19 18:50 Dose: 2 mg Documented by: Olanzapine (Zyprexa) 20 mg PO DAILY [facility] Last Admin: 08/11/19 17:19 Dose: 20 mg Documented by: Prochlorperazine Edisylate (Compazine Iv) 5 mg IV Q4H PRN PRN PRN Reason: Breakthrough Nausea/Vomiting Last Admin: 08/10/19 10:33 Dose: 5 mg Documented by: Promethazine HCl (Phenergan Suppository) 12.5 mg RECTAL Q6H PRN PRN PRN Reason: Breakthrough Nausea/Vomiting Sodium Chloride () 10 - 40 ml IV UD PRN PRN Reason: Open End PICC Flush Last Admin: 08/12/19 05:27 Dose: 10 ml Documented by: Sodium Chloride (0.9% Nacl (Sterile) Posiflush) 10 - 40 ml IV UD PRN PRN Reason: Port access or dressing change Sodium Hypochlorite (Dakins Solution 0.25% (1/2 Strength)) 1 applic TOPICAL BID [facility]; Protocol Last Admin: 08/11/19 20:49 Dose: Not Given Documented by: Trazodone HCl (Desyrel) 25 mg PO QHS [facility] Last Admin: 08/11/19 20:49 Dose: 25 mg Documented by: Venlafaxine HCl (Effexor Xr) 150 mg PO DAILY [facility] Last Admin: 08/11/19 17:19 Dose: 150 mg Documented by: Clinical Impression(s) from Imaging Studies Pelvis CT 08/11/19 07:52 IMPRESSION: Large soft tissue gap most likely secondary to debridement overlying the right gluteus muscle. Focal scalloping of the posterior margin of the right hemisacrum. Osteomyelitis should be ruled out. Electronically Signed: Alan Dennis, at 11:07 EST , Service support , Medical Necessity - Tobacco Use Smoking Status: Former smoker Tobacco Use: Vapor Assessment/Plan RECOMMENDATIONS: 1. Continue cefepime and continue vancomycin as ordered. 2. Continue plastic surgery evaluation. Continue local wound care. Possible diverting colostomy 3. Wean supplemental oxygen to maintain saturations at or above 90%. 4. Encourage incentive spirometer use. 5. Consider obtaining echocardiogram. 6. BiPAP breaks as tolerated. Continue with sleep IMPRESSIONS: 1. Severe sepsis Patient underwent surgical debridement yesterday by plastic surgery. Cultures are currently pending. Patient is on cefepime and vancomycin, which should cover reported organisms. Patient may require diverting colostomy. 2. Encephalopathy While the patient does have underlying psychiatric manifestations, I do suspect that her altered mentation is likely the consequence of her infectious processes. Continue baseline psychiatric medications. Antibiotics will be continued to address her infectious etiologies. 3. Acute on chronic hypercarbic respiratory failure?obstructive sleep apnea Repeat ABG showed good response to AVAPS therapy. This should be continued with sleep and as rescue during the day if necessary. Patient with increased FiO2 demands this morning. I's and O's are reportedly relatively even, but patient did have a 5 kg increase in body weight. Clinical suspicion for fluid resuscitation during OR. Would consider diuretic therapy. 4. History of bipolar disorder/diabetes mellitus/hypertension/hyperlipidemia/obesity/chronic kidney disease Complicates care, management, recovery and prognosis. Continue home medications as indicated. Code Visit Inpatient E&M: [id number] [facility] Hosp L3
--- NOTE | 2019-08-12 10:19 | PCM.RX.CS ---
Consult Pharmacy has been consulted to manage selected antiobiotic: Vancomycin Suspected Infection: Sepsis, Skin/Soft tissue Labs: Sodium 147 mmol/L (136-145) H 08/12/19 07:56 Potassium 3.6 mmol/L (3.5-5.1) 08/12/19 07:56 Chloride 120 mmol/L (98-107) H 08/12/19 07:56 Carbon Dioxide 20.0 mmol/L (21.0-32.0) L 08/12/19 07:56 Anion Gap 7 (5-15) 08/12/19 07:56 BUN 22 mg/dL (7-18) H 08/12/19 07:56 Creatinine 1.90 mg/dL (0.55-1.02) H 08/12/19 07:56 Est GFR (MDRD) Af Amer 34 mL/min (>60) L 08/12/19 07:56 Est GFR (MDRD) Non-Af 28 mL/min (>60) L 08/12/19 07:56 BUN/Creatinine Ratio 11.6 RATIO (10-20) 08/12/19 07:56 Glucose 121 mg/dL (74-106) H 08/12/19 07:56 Vancomycin Trough 27.6 ug/mL (5.0-15.0) H 08/11/19 06:55 Random Vancomycin 27.3 ug/mL (0.0-15.0) H 08/12/19 07:56 Microbiology: Microbiology 08/11/19 13:15 Tissue - Buttock Wound Culture - Preliminary Gram positive organism 08/09/19 Unknown Wound - Buttock Gram Stain - Final 08/09/19 Unknown Wound - Buttock Wound Culture - Preliminary Staphylococcus aureus Gram positive organism Estimated Creatinine Clearance: 99kg Goal Trough: 15-20 mcg/mL Pharmacy Plan for Drug Dosing: Pt's previous dose was held due to an elevated trough of 27.6. A random level was drawn on 08/13/2019. It resulted at 27.3. Pt's Vancomycin will continue to be held. Another random level will be ordered for 0700 on 08/14/2019. Pharmacy Service will continue to monitor and adjust dosing as required. Follow-Up Labs: Trough Vancomycin - 08/14/2019 @ 0700
[2019-08-12] MEDS: Furosemide 20 MG/2 ML VIAL IV (10:21)
[2019-08-12] MEDS: Morphine 2 MG/ML Syringe IV ×2 (10:21→20:01)
--- NOTE | 2019-08-12 10:39 | PCM.HP.ID ---
Problem List (1) Pressure ulcer of sacral region, stage 4 Status: Chronic Comment: infected necrotizing right buttock and right sacral pressure sore, Stage IV Reason for Consult: osteo Consulted by: Dr. Campos History of Present Illness: The patient is a 63 year old F with DM, admitted in July for infected decub ulcer, wound cx with serratia, ecoli, anaerobes. Taken to OR 07/25, then transferred to TCU on cefdinir, followed by Dr. Kaiser. Ucx showed VRE and yeast. Had worsening mental status and wound, re-admitted on vanc, cefepime. Taken to OR yesterday for bone debridement. Mental status improved. Diverting ostomy planned. Most recent wound cx showing staph aureus. Feeling ok, denies pain. Full ROS performed and neg except as noted above. - Medical History Past Medical History (Chronic Problems): Chronic Problems Gout (Chronic) Benzodiazepine dependence (Chronic) Neuropathic pain (Chronic) Insomnia (Chronic) Bipolar disorder (Chronic) Hypothyroidism (Chronic) Pressure ulcer of sacral region, stage 4 (Chronic) infected necrotizing right buttock and right sacral pressure sore, Stage IV Hypertension (Chronic) Hyperlipidemia (Chronic) Chronic back pain (Chronic) Impaired mobility (Chronic) Severe obesity (BMI 35.0-35.9 with comorbidity) (Chronic) CKD (chronic kidney disease), stage III (Chronic) Diabetes mellitus, type II (Chronic) Anxiety and depression (Chronic) RLS (restless legs syndrome) (Chronic) Nicotine vapor product user (Chronic) Former tobacco use (Chronic) Macrocytic anemia (Chronic) Intractable low back pain (Chronic) Allergies/Adverse Reactions: Allergies Iodinated Contrast Media [CONTRASTS] Allergy (Verified 07/24/19 16:36) Hives morphine Adverse Reaction (Verified 07/24/19 16:36) Nausea Home Medications: Ambulatory Orders Medication Instructions Recorded Allopurinol 300 mg PO DAILY 07/22/19 Benztropine Mesylate 0.5 mg PO QHS 07/22/19 Buspirone HCl 10 mg PO BID 07/22/19 Cyanocobalamin (Vitamin B-12) 1,000 mcg PO DAILY 07/22/19 [Vitamin B-12] Empagliflozin [Jardiance] 10 mg PO DAILY 07/22/19 Furosemide 40 mg PO BID 07/22/19 Gabapentin [Neurontin] 600 mg PO 4X/DAY 07/22/19 Hydroxyzine HCl 50 mg PO QHS PRN PRN 07/22/19 Levothyroxine [Synthroid] 75 mcg PO DAILY 07/22/19 Olanzapine 20 mg PO DAILY 07/22/19 Omeprazole 40 mg PO DAILY 07/22/19 Potassium Chloride [K-Dur] 10 meq PO BID 07/22/19 Pramipexole Di-HCl [Mirapex] 0.125 mg PO QHS 07/22/19 Psyllium Husk [Fiber] 4 cap PO DAILY 07/22/19 Rosuvastatin Calcium 40 mg PO QHS 07/22/19 Sodium Bicarbonate 2 tab PO BID 07/22/19 Venlafaxine HCl [Venlafaxine HCl 150 mg PO DAILY 07/22/19 ER] traZODone [Desyrel] 25 mg PO QHS 07/22/19 Aspirin [Aspir 81] 81 mg PO QHS 07/24/19 Cholecalciferol (Vitamin D3) 5,000 unit PO DAILY 07/24/19 [Vitamin D3] Metoprolol Tartrate 25 mg PO BID 07/24/19 Mv-Min/FA/Vit K/Lycop/Lut/Zeax 1 tab PO TID 07/24/19 [Ocuvite Eye Plus Multi Tablet] Acetaminophen [Tylenol Tablet] 650 mg PO Q6H PRN PRN tab 07/31/19 Cefdinir [Omnicef [equiv]] 300 mg PO Q12 07/31/19 Glucerna Shake 120 ml PO 4X/DAY 07/31/19 Heparin Injection (Vial) [Heparin 5,000 unit SUBCUT Q12 07/31/19 Na] Insulin Lispro [Humalog KwikPen] See Protocol SUBCUT ACHS 07/31/19 Nicotine [Nicoderm Cq] 7 mg TRANSDERM. DAILY 07/31/19 Oxycodone [Oxyir] 5 mg PO Q4H PRN PRN 3 Days #12 tab 07/31/19 - Social History SMOKING STATUS:: Former smoker Vital Signs Temp Pulse Resp BP Pulse Ox 98.2 F 108 H 20 H 113/78 94 08/12/19 08:00 08/12/19 08:00 08/12/19 08:00 08/12/19 08:00 08/12/19 08:00 Oxygen Flow Rate (L/min) 8 Oxygen Delivery Method Nasal Cannula Weight: 99.3 kg Body Mass Index (BMI) 36.9 Finger Stick Blood Glucose 134 Microbiology Past 72 Hours 08/11/19 13:21 Gram Stain - Final Bone - Buttock 08/11/19 13:15 Gram Stain - Final Tissue - Buttock Wound Culture - Preliminary Gram positive organism 08/09/19 Unknown Gram Stain - Final Wound - Buttock Wound Culture - Preliminary Staphylococcus aureus Gram positive organism Laboratory Tests Past 24 Hrs 08/09/19 08/10/19 08/11/19 16:00 05:30 14:32 WBC RBC Hgb Hct MCV MCH MCHC RDW Std Deviation RDW Coeff of Harper Plt Count MPV Differential Comment Diff Path Review Reviewed Reviewed Specimen Type ART Sample Site L Brachial pH 7.22 L Bicarbonate Actual 20.3 L POC Total CO2 22 Base Excess -7 L O2 Saturation 89 L O2 % ABG pCO2 50.0 H ABG pO2 67 L VBG pH VBG pO2 VBG O2 Sat (Calc) VBG O2 Content VBG Base Excess POC Mix VBG pCO2 Pt Tmp Respiration Rate O2 Delivery Device NRB Mask Liter Flow 15.0 EPAP Blood Gas Notified Whom OTHER Blood Gas Notified Time 1430 Sodium Potassium Chloride Carbon Dioxide Anion Gap BUN Creatinine Estim Creat Clear Calc Est GFR (MDRD) Af Amer Est GFR (MDRD) Non-Af BUN/Creatinine Ratio Glucose Calcium Prealbumin Random Vancomycin 08/11/19 08/12/19 08/12/19 16:25 07:56 07:56 WBC 36.2 H* RBC 3.19 L Hgb 10.2 L Hct 32.9 L MCV 103.1 H MCH 32.0 MCHC 31.0 L RDW Std Deviation 60.4 H RDW Coeff of Harper 16.1 H Plt Count 585 H MPV 9.2 Differential Comment Diff Path Review May foll Specimen Type ALCIDES Sample Site pH Bicarbonate Actual POC Total CO2 Base Excess O2 Saturation O2 % 50 ABG pCO2 ABG pO2 VBG pH 7.34 VBG pO2 35 VBG O2 Sat (Calc) 64 VBG O2 Content 20 L VBG Base Excess -7 L POC Mix VBG pCO2 Pt Tmp 34.7 L Respiration Rate 12 O2 Delivery Device Bi / C PAP Liter Flow EPAP 8 Blood Gas Notified Whom ICU MD Blood Gas Notified Time 1622 Sodium Potassium Chloride Carbon Dioxide Anion Gap BUN Creatinine Estim Creat Clear Calc Est GFR (MDRD) Af Amer Est GFR (MDRD) Non-Af BUN/Creatinine Ratio Glucose Calcium Prealbumin Random Vancomycin 27.3 H 08/12/19 07:56 WBC RBC Hgb Hct MCV MCH MCHC RDW Std Deviation RDW Coeff of Harper Plt Count MPV Differential Comment Diff Path Review Specimen Type Sample Site pH Bicarbonate Actual POC Total CO2 Base Excess O2 Saturation O2 % ABG pCO2 ABG pO2 VBG pH VBG pO2 VBG O2 Sat (Calc) VBG O2 Content VBG Base Excess POC Mix VBG pCO2 Pt Tmp Respiration Rate O2 Delivery Device Liter Flow EPAP Blood Gas Notified Whom Blood Gas Notified Time Sodium 147 H Potassium 3.6 Chloride 120 H Carbon Dioxide 20.0 L Anion Gap 7 BUN 22 H Creatinine 1.90 H Estim Creat Clear Calc 23.97 Est GFR (MDRD) Af Amer 34 L Est GFR (MDRD) Non-Af 28 L BUN/Creatinine Ratio 11.6 Glucose 121 H Calcium 7.8 L Prealbumin 5.4 L Random Vancomycin - Other Studies Radiology: [] reviewed Other Studies: [] Route of nutrition/ use of supplements: [] Nutritional Intake: [] IV Site: [] Ahmadi Catheter: [] - Physical Exam General: - - oriented x1 HEENT: Atraumatic, PERRLA, EOMI Neck: Supple, No Nodes Lungs: Clear to auscultation, Normal air movement Cardiovascular: Regular rate, Regular Rhythm Abdomen: Soft, Non Tender, Non-Distended Extremities: Edema Skin: Ulcer/ Wound - large sacral wound IV Site: Peripheral, without redness Musculoskeletal: No Tenderness to Palpation of Joints or Extremities Neurological: Cranial nerves II-XII grossly intact - Assessment/Plan Antibiotics: [] Assessment/Plan: [] sacral osteo - staph aureus growing so far. Prior cxs with corynebacteria, ecoli, serratia, anaerobes. Recent ucx with VRE and heidi. Taken to OR [address] Kaiser, bone cx sent. On vanc/cefepime, added flagyl 2. Diverting ostomy planned. Will follow, thank you, d/w Dr. Campos.
--- NOTE | 2019-08-12 12:06 | NURSING ---
wound photo: right buttock
[2019-08-12 12:46] LABS: Bedside Glucose 154 mg/dL (70-110)
[2019-08-12 12:58] LABS: Pathologist Review Reviewed
--- NOTE | 2019-08-12 13:45 | PN_ITS ---
<Ludy Singh - Last Filed: 08/12/19 14:03> Subjective: Patient seen and examined. Remains confused, pulling at reconciler and medical equipment. - Physical Exam Vitals/I&O's: Vital Signs Temp Pulse Resp BP Pulse Ox 97.6 F L 110 H 20 H 121/63 H 94 08/12/19 11:49 08/12/19 12:04 08/12/19 11:49 08/12/19 12:04 08/12/19 11:49 Oxygen Flow Rate (L/min) 8 Oxygen Delivery Method Nasal Cannula Weight: 218 lb 14.704 oz Body Mass Index (BMI) 36.9 Finger Stick Blood Glucose 134 Intake and Output for Last 24 Hours 08/10/19 08/11/19 08/12/19 23:59 23:59 23:59 Intake Total 1280 / 1280 840 / 840 600 / 600 Output Total 950 / 1100 550 / 550 50 / 50 Balance 330 / 180 290 / 290 550 / 550 General: Confused, - - Restless HEENT: Atraumatic, PERRLA, EOMI, Normocephalic Oral: Dry Mucosa Neck: Supple, No JVD, Negative Carotid Bruits Lungs: Clear to auscultation, Diminished Cardiovascular: Regular Rhythm, Normal S1, Normal S2, No murmurs, Tachycardic Abdomen: Bowel Sounds Present, Soft, Non Tender, Non-Distended, Obese Extremities: No clubbing, No cyanosis, No edema Skin: - - Sacral stage IV decubitus ulcer, present on admission Musculoskeletal: No Tenderness to Palpation of Joints or Extremities Neurological: Cranial nerves II-XII grossly intact, Neuro grossly intact Psych/Mental Status: Anxious, Impulsive, Manic Microbiology Past 72 Hours 08/09/19 Unknown Wound - Buttock Gram Stain - Final 08/09/19 Unknown Wound - Buttock Wound Culture - Preliminary Staphylococcus aureus Gram positive arik 08/11/19 13:21 Bone - Buttock Gram Stain - Final 08/11/19 13:21 Bone - Buttock Wound Culture - Preliminary Gram Positive Cocci 08/10/19 04:20 Urine Catheter - Ahmadi Urine Culture - Final Presumptive C albicans 08/11/19 13:15 Tissue - Buttock Gram Stain - Final 08/11/19 13:15 Tissue - Buttock Wound Culture - Preliminary Gram positive organism Laboratory Results 08/11/19 08:56: Diff Path Review Reviewed 08/11/19 14:32: Specimen Type ART, Sample Site L Brachial, pH 7.22 L, Bicarbonate Actual 20.3 L, POC Total CO2 22, Base Excess -7 L, O2 Saturation 89 L, ABG pCO2 50.0 H, ABG pO2 67 L, O2 Delivery Device NRB Mask, Liter Flow 15.0, Blood Gas Notified Whom OTHER, Blood Gas Notified Time 1430 08/11/19 15:51: POC Glucose 134 H 08/11/19 16:25: Specimen Type ALCIDES, O2 % 50, VBG pH 7.34, VBG pO2 35, VBG O2 Sat (Calc) 64, VBG O2 Content 20 L, VBG Base Excess -7 L, POC Mix VBG pCO2 Pt Tmp 34.7 L, Respiration Rate 12, O2 Delivery Device Bi / C PAP, EPAP 8, Blood Gas Notified Whom ICU MD, Blood Gas Notified Time 1622 08/11/19 17:23: POC Glucose 131 H 08/11/19 23:28: POC Glucose 138 H 08/12/19 05:34: POC Glucose 125 H 08/12/19 07:56: Random Vancomycin 27.3 H 08/12/19 07:56: WBC 36.2 H*, RBC 3.19 L, Hgb 10.2 L, Hct 32.9 L, MCV 103.1 H, MCH 32.0, MCHC 31.0 L, RDW Std Deviation 60.4 H, RDW Coeff of Harper 16.1 H, Plt Count 585 H, MPV 9.2, Differential Comment , Diff Path Review November08/12/19 07:56: Sodium 147 H, Potassium 3.6, Chloride 120 H, Carbon Dioxide 20.0 L, Anion Gap 7, BUN 22 H, Creatinine 1.90 H, Estim Creat Clear Calc 23.97, Est GFR (MDRD) Af Amer 34 L, Est GFR (MDRD) Non-Af 28 L, BUN/Creatinine Ratio 11.6, Glucose 121 H, Calcium 7.8 L, Prealbumin 5.4 L 08/12/19 12:03: POC Glucose 154 H Current Medications Acetaminophen (Tylenol) 650 mg PO Q6H PRN PRN PRN Reason: Pain Score 1-3/Temp > 100.7 F Acetaminophen (Tylenol) 650 mg RECTAL Q4H PRN PRN PRN Reason: Pain Score 1-3/Temp > 100.7 F Albuterol Sulfate (Ventolin Aerosols) 2.5 mg INHALATION Q2H PRN PRN PRN Reason: SOB/Wheezing Allopurinol (Zyloprim) 300 mg PO DAILY [facility] Last Admin: 08/12/19 09:48 Dose: 300 mg Documented by: Aspirin (Ecotrin) 81 mg PO QHS [facility] Last Admin: 08/11/19 20:49 Dose: 81 mg Documented by: Atorvastatin Calcium (Lipitor) 80 mg PO QHS [facility] Last Admin: 08/11/19 20:49 Dose: 80 mg Documented by: Benztropine Mesylate (Cogentin) 0.5 mg PO QHS [facility] Last Admin: 08/11/19 20:49 Dose: 0.5 mg Documented by: Buspirone HCl (Buspar) 10 mg PO BID [facility] Last Admin: 08/12/19 09:47 Dose: 10 mg Documented by: Cholecalciferol (Vitamin D) 5,000 unit PO DAILY [facility] Last Admin: 08/12/19 09:48 Dose: 5,000 unit Documented by: Cyanocobalamin (Vitamin B12) 1,000 mcg PO DAILY [facility] Last Admin: 08/12/19 09:48 Dose: 1,000 mcg Documented by: Glucagon () 1 mg IM .X1 PRN PRN Reason: Hypoglycemia Haloperidol Lactate (Haldol) 1 - 2 mg IV Q4H PRN PRN PRN Reason: SEVERE AGITATION Last Admin: 08/12/19 05:06 Dose: 1 mg Documented by: Vancomycin IV Pharmacy to Dose (1 ea/ Sodium Chloride) 500 mls @ 250 mls/hr IV X1 PRN; Protocol PRN Reason: Rx to Dose Dextrose (Dextrose 10%-Water) 250 mls @ 999 mls/hr IV .Q16M PRN; Protocol PRN Reason: HYPOGLYCEMIA Sodium Chloride () 250 mls @ 15 mls/hr IV .[id number] PRN PRN Reason: Saline Flush Sodium Chloride () 250 mls @ 15 mls/hr IV .[id number] PRN PRN Reason: Additional IVPB Infusion Cefepime HCl 2 gm/ Sodium (Chloride) 100 mls @ 200 mls/hr IV Q24 [facility] Last Infusion: 08/12/19 11:38 Dose: Infused Documented by: Insulin Human Lispro (Humalog Kwikpen (Bkc)) 0 unit SC Q6 [facility]; Protocol Last Admin: 08/12/19 12:04 Dose: Not Given Documented by: Levothyroxine Sodium (Synthroid) 75 mcg PO DAILY@0600 [facility] Last Admin: 08/12/19 05:40 Dose: Not Given Documented by: Metoprolol Tartrate (Lopressor (Beta Armani)) 5 mg IV Q6 [facility] Last Admin: 08/12/19 12:04 Dose: 5 mg Documented by: Metronidazole (Flagyl) 500 mg PO TIDCM [facility] Last Admin: 08/12/19 12:04 Dose: 500 mg Documented by: Morphine Sulfate () 1 - 2 mg IV Q3H PRN PRN PRN Reason: Pain Score 1-10/10 Last Admin: 08/12/19 10:21 Dose: 2 mg Documented by: Olanzapine (Zyprexa) 20 mg PO DAILY [facility] Last Admin: 08/12/19 09:48 Dose: 20 mg Documented by: Prochlorperazine Edisylate (Compazine Iv) 5 mg IV Q4H PRN PRN PRN Reason: Breakthrough Nausea/Vomiting Last Admin: 08/10/19 10:33 Dose: 5 mg Documented by: Promethazine HCl (Phenergan Suppository) 12.5 mg RECTAL Q6H PRN PRN PRN Reason: Breakthrough Nausea/Vomiting Sodium Chloride () 10 - 40 ml IV UD PRN PRN Reason: Open End PICC Flush Last Admin: 08/12/19 05:27 Dose: 10 ml Documented by: Sodium Chloride (0.9% Nacl (Sterile) Posiflush) 10 - 40 ml IV UD PRN PRN Reason: Port access or dressing change Sodium Hypochlorite (Dakins Solution 0.25% (1/2 Strength)) 1 applic TOPICAL BID [facility]; Protocol Last Admin: 08/12/19 11:37 Dose: Not Given Documented by: Trazodone HCl (Desyrel) 25 mg PO QHS [facility] Last Admin: 08/11/19 20:49 Dose: 25 mg Documented by: Venlafaxine HCl (Effexor Xr) 150 mg PO DAILY [facility] Last Admin: 08/12/19 09:48 Dose: 150 mg Documented by: Medical Necessity - Tobacco Use Smoking Status: Former smoker Tobacco Use: Vapor Assessment/Plan 1. Severe sepsis secondary to infected stage IV sacral pressure ulcer-wound culture pending. Urine culture growing C albicans, UTI ruled out. Continue IV cefepime and IV vancomycin pending cultures. ID consulted. Flagyl added. 2. Acute hypoxic respiratory failure-improved, unclear etiology. Possibly seco ndary to bilateral atelectasis. CT of chest without focal infiltrate or pleural effusion. Continue supplement oxygen to maintain O2 at or above 90%. IS. Albuterol and DuoNeb aerosols. Pneumonia ruled out. Repeat chest x-ray given continued hypoxia. IV Lasix x1 given due to suspected fluid overload following surgery. 3. Infected stage IV sacral pressure ulcer-status post recent debridement due to necrotizing soft tissue infection 07/25/[address] Kaiser, cultures grew Serratia marcescens at that time. Repeat culture preliminary growing staph and gram- positive organism. Consult Dr. Kaiser. Wet to dry dressings with dakins solution. Consult wound RN. Given incontinence, patient may need considered for diverting colostomy. Patient underwent further sacral wound debridement 08/11/19. Anticipate patient will need LTAC for further management pending diverting colostomy. 4. Acute metabolic encephalopathy-secondary to #1/#2. Treat underlying processes as noted above. Also suspect underlying psychiatric history contributing to current presentation. Mental status improved today. Continue home psychiatric regimen. 5. Type 2 diabetes [id number] with sliding scale insulin. 6. Anxiety/Depression/Bipolar disorder-continue olanzapine, venlafaxine, trazodone, BuSpar, hydroxyzine. 7. ILIANA on Chronic kidney disease stage III-IV Lasix x1 given today, trend BMP. 8. Hypertension-hold BP regimen given hypotension on admission. 9. Hyperlipidemia-continue statin. 10. Hypothyroidism-continue home Synthroid regimen. 11. GERD-continue PPI. 12. Tobacco use via vaping-encourage cessation. DVT prophylaxis-Lovenox subcu Discharge planning: SNF vs LTAC when medically stable. Patient previously from SNF, TCU This patient was seen by SHERI Degroot under the supervision of Dr. Campos. <Jules Campos - Last Filed: 08/12/19 16:28> - Physical Exam Vitals/I&O's: Vital Signs Temp Pulse Resp BP Pulse Ox 97.6 F L 116 H 20 H 121/63 H 94 08/12/19 11:49 08/12/19 15:10 08/12/19 11:49 08/12/19 12:04 08/12/19 11:49 Oxygen Flow Rate (L/min) 8 Oxygen Delivery Method Nasal Cannula Weight: 218 lb 14.704 oz Body Mass Index (BMI) 36.9 Finger Stick Blood Glucose 134 Intake and Output for Last 24 Hours 08/10/19 08/11/19 08/12/19 23:59 23:59 23:59 Intake Total 1280 / 1280 840 / 840 600 / 600 Output Total 950 / 1100 550 / 550 50 / 50 Balance 330 / 180 290 / 290 550 / 550 Microbiology Past 72 Hours 08/09/19 Unknown Wound - Buttock Gram Stain - Final 08/09/19 Unknown Wound - Buttock Wound Culture - Preliminary Staphylococcus aureus Gram positive arik 08/11/19 13:21 Bone - Buttock Gram Stain - Final 08/11/19 13:21 Bone - Buttock Wound Culture - Preliminary Gram Positive Cocci 08/10/19 04:20 Urine Catheter - Ahmadi Urine Culture - Final Presumptive C albicans 08/11/19 13:15 Tissue - Buttock Gram Stain - Final 08/11/19 13:15 Tissue - Buttock Wound Culture - Preliminary Gram positive organism Laboratory Results 08/11/19 08:56: Diff Path Review Reviewed 08/11/19 16:25: Specimen Type ALCIDES, O2 % 50, VBG pH 7.34, VBG pO2 35, VBG O2 Sat (Calc) 64, VBG O2 Content 20 L, VBG Base Excess -7 L, POC Mix VBG pCO2 Pt Tmp 34.7 L, Respiration Rate 12, O2 Delivery Device Bi / C PAP, EPAP 8, Blood Gas Notified Whom ICU , Blood Gas Notified Time 1622 08/11/19 17:23: POC Glucose 131 H 08/11/19 23:28: POC Glucose 138 H 08/12/19 05:34: POC Glucose 125 H 08/12/19 07:56: Random Vancomycin 27.3 H 08/12/19 07:56: WBC 36.2 H*, RBC 3.19 L, Hgb 10.2 L, Hct 32.9 L, MCV 103.1 H, MCH 32.0, MCHC 31.0 L, RDW Std Deviation 60.4 H, RDW Coeff of Harper 16.1 H, Plt Count 585 H, MPV 9.2, Differential Comment , Diff Path Review November08/12/19 07:56: Sodium 147 H, Potassium 3.6, Chloride 120 H, Carbon Dioxide 20.0 L, Anion Gap 7, BUN 22 H, Creatinine 1.90 H, Estim Creat Clear Calc 23.97, Est GFR (MDRD) Af Amer 34 L, Est GFR (MDRD) Non-Af 28 L, BUN/Creatinine Ratio 11.6, Glucose 121 H, Calcium 7.8 L, Prealbumin 5.4 L 08/12/19 12:03: POC Glucose 154 H Current Medications Acetaminophen (Tylenol) 650 mg PO Q6H PRN PRN PRN Reason: Pain Score 1-3/Temp > 100.7 F Acetaminophen (Tylenol) 650 mg RECTAL Q4H PRN PRN PRN Reason: Pain Score 1-3/Temp > 100.7 F Albuterol Sulfate (Ventolin Aerosols) 2.5 mg INHALATION Q2H PRN PRN PRN Reason: SOB/Wheezing Allopurinol (Zyloprim) 300 mg PO DAILY [facility] Last Admin: 08/12/19 09:48 Dose: 300 mg Documented by: Aspirin (Ecotrin) 81 mg PO QHS [facility] Last Admin: 08/11/19 20:49 Dose: 81 mg Documented by: Atorvastatin Calcium (Lipitor) 80 mg PO QHS [facility] Last Admin: 08/11/19 20:49 Dose: 80 mg Documented by: Benztropine Mesylate (Cogentin) 0.5 mg PO QHS [facility] Last Admin: 08/11/19 20:49 Dose: 0.5 mg Documented by: Buspirone HCl (Buspar) 10 mg PO BID [facility] Last Admin: 08/12/19 09:47 Dose: 10 mg Documented by: Cholecalciferol (Vitamin D) 5,000 unit PO DAILY [facility] Last Admin: 08/12/19 09:48 Dose: 5,000 unit Documented by: Cyanocobalamin (Vitamin B12) 1,000 mcg PO DAILY [facility] Last Admin: 08/12/19 09:48 Dose: 1,000 mcg Documented by: Glucagon () 1 mg IM .X1 PRN PRN Reason: Hypoglycemia Haloperidol Lactate (Haldol) 1 - 2 mg IV Q4H PRN PRN PRN Reason: SEVERE AGITATION Last Admin: 08/12/19 05:06 Dose: 1 mg Documented by: Vancomycin IV Pharmacy to Dose (1 ea/ Sodium Chloride) 500 mls @ 250 mls/hr IV X1 PRN; Protocol PRN Reason: Rx to Dose Dextrose (Dextrose 10%-Water) 250 mls @ 999 mls/hr IV .Q16M PRN; Protocol PRN Reason: HYPOGLYCEMIA Sodium Chloride () 250 mls @ 15 mls/hr IV .[id number] PRN PRN Reason: Saline Flush Sodium Chloride () 250 mls @ 15 mls/hr IV .[id number] PRN PRN Reason: Additional IVPB Infusion Cefepime HCl 2 gm/ Sodium (Chloride) 100 mls @ 200 mls/hr IV Q24 [facility] Last Infusion: 08/12/19 11:38 Dose: Infused Documented by: Insulin Human Lispro (Humalog Kwwilliampen (Bkc)) 0 unit SC Q6 [facility]; Protocol Last Admin: 08/12/19 12:04 Dose: Not Given Documented by: Levothyroxine Sodium (Synthroid) 75 mcg PO DAILY@0600 [facility] Last Admin: 08/12/19 05:40 Dose: Not Given Documented by: Metoprolol Tartrate (Lopressor (Beta Armani)) 5 mg IV Q6 [facility] Last Admin: 08/12/19 12:04 Dose: 5 mg Documented by: Metronidazole (Flagyl) 500 mg PO TIDCM [facility] Last Admin: 08/12/19 12:04 Dose: 500 mg Documented by: Morphine Sulfate () 1 - 2 mg IV Q3H PRN PRN PRN Reason: Pain Score 1-10/10 Last Admin: 08/12/19 10:21 Dose: 2 mg Documented by: Olanzapine (Zyprexa) 20 mg PO DAILY [facility] Last Admin: 08/12/19 09:48 Dose: 20 mg Documented by: Prochlorperazine Edisylate (Compazine Iv) 5 mg IV Q4H PRN PRN PRN Reason: Breakthrough Nausea/Vomiting Last Admin: 08/10/19 10:33 Dose: 5 mg Documented by: Promethazine HCl (Phenergan Suppository) 12.5 mg RECTAL Q6H PRN PRN PRN Reason: Breakthrough Nausea/Vomiting Sodium Chloride () 10 - 40 ml IV UD PRN PRN Reason: Open End PICC Flush Last Admin: 08/12/19 05:27 Dose: 10 ml Documented by: Sodium Chloride (0.9% Nacl (Sterile) Posiflush) 10 - 40 ml IV UD PRN PRN Reason: Port access or dressing change Sodium Hypochlorite (Dakins Solution 0.25% (1/2 Strength)) 1 applic TOPICAL BID [facility]; Protocol Last Admin: 08/12/19 11:37 Dose: Not Given Documented by: Trazodone HCl (Desyrel) 25 mg PO QHS [facility] Last Admin: 08/11/19 20:49 Dose: 25 mg Documented by: Venlafaxine HCl (Effexor Xr) 150 mg PO DAILY [facility] Last Admin: 08/12/19 09:48 Dose: 150 mg Documented by: Code Visit Addendum: Dr. Campos I personally examined the patient and reviewed the chart. I agree with the above. 63-year-old female who was recently in the TCU presented for hypoxia and possible pneumonia. She did have a CT scan that did not show any focal infiltrate or signs of pneumonia. Pulmonology was consulted and we appreciate their assistance. She has been very confused which does appear to be her basel ine per report, however she was given Haldol overnight which did not help and therefore she was ordered zyprexa here in the hospital and see if that helps. She also has a large decubitus ulcer, and surgery is been consulted to assist with management as well as infectious disease. The wound is growing a beta- hemolytic and a gram-positive organism, so we will continue with cefepime and vancomycin for now while culture data is pending, based on prior cultures, flagyl was added by ID. S/p debridement and plan for diverting colostomy. Inpatient E&M: [id number] Subs Hosp L2
--- NOTE | 2019-08-12 13:59 | RAD_ITS ---
STUDY: X-RAY CHEST REASON FOR EXAM: Female, 63 years old. Hypoxia. TECHNIQUE: Single frontal view of the chest. COMPARISON: August 09, 2019 FINDINGS: Right PICC unchanged. Low volume inspiration with vascular crowding. Slightly larger bilateral pleural effusions with compression atelectasis mainly of the right middle and lower lobes, relatively unchanged. Patchy opacity of the left base unchanged. Stable cardiomegaly. Normal mediastinum and barrera. Normal visualized pulmonary arteries. There is atherosclerotic calcification of the aortic arch with tortuosity. Normal visualized thoracic spine. Normal visualized ribs, clavicles, and shoulders. There is no demonstrated abnormality of the visualized soft tissue structures of the upper abdomen. RAD/Chest 1 View (Portable) IMPRESSION: Cardiomegaly with increased pleural effusions. Low volume with compression atelectasis as described. No acute superimposed finding. Electronically Signed: Jerod Pascal MD at 14:55 EST , Service support ,
[2019-08-12 18:15] LABS: Bedside Glucose 139 mg/dL (70-110)
[2019-08-12] MEDS: 0.9% Normal Saline 1,000 ML 125 ML IV (18:51)
[2019-08-12] MEDS: Benztropine 2 MG Tablet 0.5 MG PO (23:15)
[2019-08-12] MEDS: Atorvastatin Calcium 80 MG Tablet PO (23:15)
[2019-08-12] MEDS: Metoprolol Tartrate 25 MG Tablet PO (23:16)
[2019-08-12] MEDS: Aspirin E.C. 81 MG Tablet PO (23:16)
[2019-08-12] MEDS: traZODone 50 MG Tablet 25 MG PO (23:16)
[2019-08-12 23:46] LABS: Bedside Glucose 102 mg/dL (70-110)
[2019-08-13] VITALS (13 sets, daily range): BP systolic 96–122; BP diastolic 42–68; PULSE 90–113; RESP 16–20; TEMP 36.4–37.1; O2SAT 92–96
[2019-08-13] MEDS: 0.9% Normal Saline 1,000 ML 125 ML IV ×2 (03:15→10:57)
[2019-08-13] MEDS: 0.9% Saline Lock 10 ML Syringe IV ×4 (03:15→22:15)
[2019-08-13] MEDS: Morphine 2 MG/ML Syringe IV ×2 (04:25→22:14)
[2019-08-13 04:32] LABS: Hematocrit 31.7 % (37-47); Hemoglobin 9.7 g/dL (12.0-15.0); Mean Corp Hgb Conc 30.6 g/dL (32-36); Mean Corpuscular Hgb 31.5 pg (27.0-32.0); Mean Corpuscular Volume 102.9 fL (81-99); Mean Platelet Vol. 9.3 fl (6.2-12.0); POSITIVE COUNT YES; Platelet Count 598 K/mm3 (150-450); RBC Distribution Width CV 16.6 % (11.6-14.6); RBC Distribution Width SD 62.1 fl (35.1-43.9); Red Blood Count 3.08 M/mm3 (4.2-5.4)
[2019-08-13 04:45] LABS: Scan Indicated on CBC? Y/N YES- FLAGS NOTED
[2019-08-13 04:46] LABS: White Blood Count 33.8 K/mm3 (4.4-11.0)
[2019-08-13 05:11] LABS: Differential Comment SCANNED
[2019-08-13 05:13] LABS: Anion Gap 6 (5-15); BUN 24 mg/dL (7-18); BUN/Creat Ratio 9.9 RATIO (10-20); Calcium,Total 8.2 mg/dL (8.5-10.1); Chloride 123 mmol/L (98-107); Creatinine, Serum 2.42 mg/dL (0.55-1.02); EST Glomerular Filtration Rate 21 mL/min (>60); Est Glom Filt Rate - Afr Amer 26 mL/min (>60); Estimated Creatinine Clearance 18.82 ml/min; Glucose 107 mg/dL (74-106); Potassium 3.6 mmol/L (3.5-5.1); Sodium Level 148 mmol/L (136-145)
[2019-08-13] MEDS: Levothyroxine 75 MCG Tablet PO (05:30)
[2019-08-13] MEDS: Haloperidol Lactate 5 MG/ML Vial IV (05:38)
[2019-08-13 06:15] LABS: Bedside Glucose 115 mg/dL (70-110)
--- NOTE | 2019-08-13 08:27 | CON.PCM_ITS ---
Problem List (1) Fecal soiling due to fecal incontinence Status: Acute (2) Pressure ulcer of sacral region, stage 4 Status: Chronic Comment: infected necrotizing right buttock and right sacral pressure sore, Stage IV (3) Severe obesity (BMI 35.0-35.9 with comorbidity) Status: Chronic (4) Diabetes mellitus, type II Status: Chronic Qualifiers: Reason for Consult Date of Consultation: 08/13/19 Reason for Consultation: Diverting colostomy History of Present Illness: The patient is a 63 year old F recently admitted for sacral ulcer and then sent to the TCU and readmitted for further infection. She underwent further debridement [address] Kaiser. She is confused and unable to make her own decisions. Past Medical History Past Medical History (Chronic Problems): Chronic Problems Gout (Chronic) Benzodiazepine dependence (Chronic) Neuropathic pain (Chronic) Insomnia (Chronic) Bipolar disorder (Chronic) Hypothyroidism (Chronic) Pressure ulcer of sacral region, stage 4 (Chronic) infected necrotizing right buttock and right sacral pressure sore, Stage IV Hypertension (Chronic) Hyperlipidemia (Chronic) Chronic back pain (Chronic) Impaired mobility (Chronic) Severe obesity (BMI 35.0-35.9 with comorbidity) (Chronic) CKD (chronic kidney disease), stage III (Chronic) Diabetes mellitus, type II (Chronic) Anxiety and depression (Chronic) RLS (restless legs syndrome) (Chronic) Nicotine vapor product user (Chronic) Former tobacco use (Chronic) Macrocytic anemia (Chronic) Intractable low back pain (Chronic) Allergies Iodinated Contrast Media [CONTRASTS] Allergy (Verified 07/24/19 16:36) Hives morphine Adverse Reaction (Verified 07/24/19 16:36) Nausea Home Medications: Ambulatory Orders Medication Instructions Recorded Allopurinol 300 mg PO DAILY 07/22/19 Benztropine Mesylate 0.5 mg PO QHS 07/22/19 Buspirone HCl 10 mg PO BID 07/22/19 Cyanocobalamin (Vitamin B-12) 1,000 mcg PO DAILY 07/22/19 [Vitamin B-12] Empagliflozin [Jardiance] 10 mg PO DAILY 07/22/19 Furosemide 40 mg PO BID 07/22/19 Gabapentin [Neurontin] 600 mg PO 4X/DAY 07/22/19 Hydroxyzine HCl 50 mg PO QHS PRN PRN 07/22/19 Levothyroxine [Synthroid] 75 mcg PO DAILY 07/22/19 Olanzapine 20 mg PO DAILY 07/22/19 Omeprazole 40 mg PO DAILY 07/22/19 Potassium Chloride [K-Dur] 10 meq PO BID 07/22/19 Pramipexole Di-HCl [Mirapex] 0.125 mg PO QHS 07/22/19 Psyllium Husk [Fiber] 4 cap PO DAILY 07/22/19 Rosuvastatin Calcium 40 mg PO QHS 07/22/19 Sodium Bicarbonate 2 tab PO BID 07/22/19 Venlafaxine HCl [Venlafaxine HCl 150 mg PO DAILY 07/22/19 ER] traZODone [Desyrel] 25 mg PO QHS 07/22/19 Aspirin [Aspir 81] 81 mg PO QHS 07/24/19 Cholecalciferol (Vitamin D3) 5,000 unit PO DAILY 07/24/19 [Vitamin D3] Metoprolol Tartrate 25 mg PO BID 07/24/19 Mv-Min/FA/Vit K/Lycop/Lut/Zeax 1 tab PO TID 07/24/19 [Ocuvite Eye Plus Multi Tablet] Acetaminophen [Tylenol Tablet] 650 mg PO Q6H PRN PRN tab 07/31/19 Cefdinir [Omnicef [equiv]] 300 mg PO Q12 07/31/19 Glucerna Shake 120 ml PO 4X/DAY 07/31/19 Heparin Injection (Vial) [Heparin 5,000 unit SUBCUT Q12 07/31/19 Na] Insulin Lispro [Humalog KwikPen] See Protocol SUBCUT ACHS 07/31/19 Nicotine [Nicoderm Cq] 7 mg TRANSDERM. DAILY 07/31/19 Oxycodone [Oxyir] 5 mg PO Q4H PRN PRN 3 Days #12 tab 07/31/19 Surgical History: appendectomy, cholecystectomy, hysterectomy, - - Lumbar spinal surgery with hardware, at least 4 previous back surgeries. Psychiatric History: Anxiety, Bipolar, Depression [employer] SPECIALIST History: No pertinent [employer]IST history Lives: - - , currently at Smoking Status: Former smoker Tobacco Use: Vapor Alcohol: None Drugs: None - *Family History Maternal History Items: - - Patient denies any market maternal or paternal family history including heart disease, diabetes, cancer. Paternal History Items: - - Patient denies any market maternal or paternal family history including heart disease, diabetes, cancer. Review of Systems Unable to obtain accurate/complete ROS d/t: Patient confusion - Physical Exam Vitals/I&O's: Vital Signs Temp Pulse Resp BP Pulse Ox 97.9 F 106 H 18 117/64 95 08/13/19 05:31 08/13/19 07:00 08/13/19 05:31 08/13/19 05:31 08/13/19 08:03 Oxygen Flow Rate (L/min) 7 Oxygen Delivery Method Nasal Cannula Weight: 218 lb 0.595 oz Body Mass Index (BMI) 36.9 Finger Stick Blood Glucose 134 Intake and Output for Last 24 Hours 08/11/19 08/12/19 08/13/19 23:59 23:59 23:59 Intake Total 840 / 840 820 / 820 1050 / 1050 Output Total 550 / 550 175 / 175 75 / 75 Balance 290 / 290 645 / 645 975 / 975 General: No apparent distress, Confused Lungs: Normal air movement Abdomen: Soft, Non Tender, Non-Distended, - - Multiple areas of ecchymosis on the abdomen Skin: No rashes Musculoskeletal: No Muscle Wasting Neurological: Cranial nerves II-XII grossly intact Psych/Mental Status: Normal Affect Microbiology Past 72 Hours 08/09/19 Unknown Wound - Buttock Gram Stain - Final 08/09/19 Unknown Wound - Buttock Wound Culture - Final Meth. resistant Staph. aureus Gram positive arik 08/11/19 13:21 Bone - Buttock Gram Stain - Final 08/11/19 13:21 Bone - Buttock Wound Culture - Preliminary Meth. resistant Staph. aureus 08/11/19 06:40 Blood Culture (Wb) - Left Wrist Blood Culture - Preliminary No growth in 48 hours. 08/11/19 06:55 Blood Culture (Wb) - Left Wrist Blood Culture - Preliminary No growth in 48 hours. 08/09/19 06:35 Blood Culture (Wb) - Pic Blood Culture - Preliminary No growth in 48 hours. 08/10/19 04:20 Urine Catheter - Ahmadi Urine Culture - Final Presumptive C albicans 08/11/19 13:15 Tissue - Buttock Gram Stain - Final 08/11/19 13:15 Tissue - Buttock Wound Culture - Preliminary Gram positive organism Laboratory Results 08/11/19 08:56: Diff Path Review Reviewed 08/12/19 07:56: Random Vancomycin 27.3 H 08/12/19 07:56: WBC 36.2 H*, RBC 3.19 L, Hgb 10.2 L, Hct 32.9 L, MCV 103.1 H, MCH 32.0, MCHC 31.0 L, RDW Std Deviation 60.4 H, RDW Coeff of Harper 16.1 H, Plt Count 585 H, MPV 9.2, Differential Comment , Diff Path Review November [facility] 08/12/19 07:56: Sodium 147 H, Potassium 3.6, Chloride 120 H, Carbon Dioxide 20.0 L, Anion Gap 7, BUN 22 H, Creatinine 1.90 H, Estim Creat Clear Calc 23.97, Est GFR (MDRD) Af Amer 34 L, Est GFR (MDRD) Non-Af 28 L, BUN/Creatinine Ratio 11.6, Glucose 121 H, Calcium 7.8 L, Prealbumin 5.4 L 08/12/19 12:03: POC Glucose 154 H 08/12/19 17:39: POC Glucose 139 H 08/12/19 23:23: POC Glucose 102 08/13/19 03:58: WBC 33.8 H*, RBC 3.08 L, Hgb 9.7 L, Hct 31.7 L, MCV 102.9 H, MCH 31.5, MCHC 30.6 L, RDW Std Deviation 62.1 H, RDW Coeff of Harper 16.6 H, Plt Count 598 H, MPV 9.3, Differential Comment SCANNED, Diff Path Review November [facility] 08/13/19 03:58: Sodium 148 H, Potassium 3.6, Chloride 123 H, Carbon Dioxide 19.0 L, Anion Gap 6, BUN 24 H, Creatinine 2.42 H, Estim Creat Clear Calc 18.82, Est GFR (MDRD) Af Amer 26 L, Est GFR (MDRD) Non-Af 21 L, BUN/Creatinine Ratio 9.9 L, Glucose 107 H, Calcium 8.2 L 08/13/19 05:38: POC Glucose 115 H Clinical Impression(s) from Imaging Studies Chest X-Ray 08/09/19 15:11 IMPRESSION: No major interval change. Electronically Signed: Jimmy Laar DO at 16:14 EST Tel [phone], Service support , Chest CT 08/10/19 19:00 IMPRESSION: Bilateral lower lobe atelectasis, right maternal left with mild right-sided pleural effusion. Mild ascites. No focal infiltrate or pleural effusion. Electronically Signed: Yohana Del Rio MD at 4:05 EST , Service support , Pelvis CT 08/11/19 07:52 IMPRESSION: Large soft tissue gap most likely secondary to debridement overlying the right gluteus muscle. Focal scalloping of the posterior margin of the right hemisacrum. Osteomyelitis should be ruled out. Electronically Signed: Alan Dennis, at 11:07 EST , Service support , Chest X-Ray 08/12/19 13:59 IMPRESSION: Cardiomegaly with increased pleural effusions. Low volume with compression atelectasis as described. No acute superimposed finding. Electronically Signed: Jerod Pascal MD at 14:55 EST , Service support , Current Medications Acetaminophen (Tylenol) 650 mg PO Q6H PRN PRN PRN Reason: Pain Score 1-3/Temp > 100.7 F Acetaminophen (Tylenol) 650 mg RECTAL Q4H PRN PRN PRN Reason: Pain Score 1-3/Temp > 100.7 F Albuterol Sulfate (Ventolin Aerosols) 2.5 mg INHALATION Q2H PRN PRN PRN Reason: SOB/Wheezing Allopurinol (Zyloprim) 300 mg PO DAILY [facility] Last Admin: 08/12/19 09:48 Dose: 300 mg Documented by: Aspirin (Ecotrin) 81 mg PO QHS [facility] Last Admin: 08/12/19 23:16 Dose: 81 mg Documented by: Atorvastatin Calcium (Lipitor) 80 mg PO QHS [facility] Last Admin: 08/12/19 23:15 Dose: 80 mg Documented by: Benztropine Mesylate (Cogentin) 0.5 mg PO QHS [facility] Last Admin: 08/12/19 23:15 Dose: 0.5 mg Documented by: Buspirone HCl (Buspar) 10 mg PO BID [facility] Last Admin: 08/12/19 23:16 Dose: 10 mg Documented by: Cholecalciferol (Vitamin D) 5,000 unit PO DAILY [facility] Last Admin: 08/12/19 09:48 Dose: 5,000 unit Documented by: Cyanocobalamin (Vitamin B12) 1,000 mcg PO DAILY [facility] Last Admin: 08/12/19 09:48 Dose: 1,000 mcg Documented by: Glucagon () 1 mg IM .X1 PRN PRN Reason: Hypoglycemia Haloperidol Lactate (Haldol) 1 - 2 mg IV Q4H PRN PRN PRN Reason: SEVERE AGITATION Last Admin: 08/13/19 05:38 Dose: 1 mg Documented by: Vancomycin IV Pharmacy to Dose (1 ea/ Sodium Chloride) 500 mls @ 250 mls/hr IV X1 PRN; Protocol PRN Reason: Rx to Dose Dextrose (Dextrose 10%-Water) 250 mls @ 999 mls/hr IV .Q16M PRN; Protocol PRN Reason: HYPOGLYCEMIA Sodium Chloride () 250 mls @ 15 mls/hr IV .[id number] PRN PRN Reason: Saline Flush Sodium Chloride () 250 mls @ 15 mls/hr IV .[id number] PRN PRN Reason: Additional IVPB Infusion Cefepime HCl 2 gm/ Sodium (Chloride) 100 mls @ 200 mls/hr IV Q24 [facility] Last Infusion: 08/12/19 11:38 Dose: Infused Documented by: Sodium Chloride () 1,000 mls @ 125 mls/hr IV .Q8H [facility] Last Admin: 08/13/19 03:15 Dose: 125 mls/hr Documented by: Insulin Human Lispro (Humalog Kwikpen (Bkc)) 0 unit SC Q6 [facility]; Protocol Last Admin: 08/13/19 05:39 Dose: Not Given Documented by: Levothyroxine Sodium (Synthroid) 75 mcg PO DAILY@0600 [facility] Last Admin: 08/13/19 05:30 Dose: 75 mcg Documented by: Metoprolol Tartrate (Lopressor (Beta Armani)) 25 mg PO BID [facility] Last Admin: 08/12/19 23:16 Dose: 25 mg Documented by: Metronidazole (Flagyl) 500 mg PO TIDCM [facility] Last Admin: 08/12/19 17:56 Dose: 500 mg Documented by: Morphine Sulfate () 1 - 2 mg IV Q3H PRN PRN PRN Reason: Pain Score 1-10/10 Last Admin: 08/13/19 04:25 Dose: 2 mg Documented by: Olanzapine (Zyprexa) 20 mg PO DAILY [facility] Last Admin: 08/12/19 09:48 Dose: 20 mg Documented by: Prochlorperazine Edisylate (Compazine Iv) 5 mg IV Q4H PRN PRN PRN Reason: Breakthrough Nausea/Vomiting Last Admin: 08/10/19 10:33 Dose: 5 mg Documented by: Promethazine HCl (Phenergan Suppository) 12.5 mg RECTAL Q6H PRN PRN PRN Reason: Breakthrough Nausea/Vomiting Sodium Chloride () 10 - 40 ml IV UD PRN PRN Reason: Open End PICC Flush Last Admin: 08/13/19 04:25 Dose: 10 ml Documented by: Sodium Chloride (0.9% Nacl (Sterile) Posiflush) 10 - 40 ml IV UD PRN PRN Reason: Port access or dressing change Sodium Hypochlorite (Dakins Solution 0.25% (1/2 Strength)) 1 applic TOPICAL BID [facility]; Protocol Last Admin: 08/12/19 23:05 Dose: Not Given Documented by: Trazodone HCl (Desyrel) 25 mg PO QHS [facility] Last Admin: 08/12/19 23:16 Dose: 25 mg Documented by: Venlafaxine HCl (Effexor Xr) 150 mg PO DAILY [facility] Last Admin: 08/12/19 09:48 Dose: 150 mg Documented by: Assessment/Plan All Active Problems Fecal soiling due to fecal incontinence (Acute) 63-year-old female with large decubitus ulcer and likely osteomyelitis 1. Patient has bone and wound cultures pending. ID is involved. The patient's white count is markedly elevated. She is on multiple antibiotics. I discussed the diverting colostomy with the patient's this morning. He is talking to the patient's kids and they will decide if they would like to proceed with diverting colostomy. I informed the patient that I would have to perform a general anesthesia and laparoscopic and possible open surgery to bring out the diverting colostomy and that it would likely be permanent. I discussed the risks of the surgery including but not limited to bleeding, infection, injury to surrounding organs. The patient is going to discuss with family and let me know if he would like to proceed with diverting colostomy. Tim Reyna MD Pager: [phone] [address] [place] [address] [address] [place] [address] Office:
--- NOTE | 2019-08-13 08:47 | US_ITS ---
STUDY: SUPERFICIAL ULTRASOUND - LEFT PLEURAL SPACE. REASON FOR EXAM: Female, [address] EFF TECHNIQUE: A superficial ultrasound was performed with real-time and static garcia-scale imaging. COMPARISON: None. FINDINGS: Tiny left pleural effusion. The collection is too small for thoracentesis. US/Chest IMPRESSION: Tiny pleural effusion. Electronically Signed: Alan Dennis, at 15:53 EST , Service support ,
--- NOTE | 2019-08-13 08:49 | PN_ITS ---
Subjective: Patient is very confused this morning. Unable to answer most questions. Patient is not reporting any pain, nausea or vomiting. Patient has not had breakfast at this time. No bleeding complications have been reported by nursing. Objective: Chest x-ray shows increased bilateral effusions, right greater than left - Physical Exam Vitals/I&O's: Vital Signs Temp Pulse Resp BP Pulse Ox 36.6 C 106 H 18 117/64 95 08/13/19 05:31 08/13/19 07:00 08/13/19 05:31 08/13/19 05:31 08/13/19 08:03 Oxygen Flow Rate (L/min) 7 Oxygen Delivery Method Nasal Cannula Weight: 98.9 kg Body Mass Index (BMI) 36.9 Finger Stick Blood Glucose 134 Intake and Output for Last 24 Hours 08/11/19 08/12/19 08/13/19 23:59 23:59 23:59 Intake Total 840 / 840 820 / 820 1050 / 1050 Output Total 550 / 550 175 / 175 75 / 75 Balance 290 / 290 645 / 645 975 / 975 General: Alert, No apparent distress, Confused, Disoriented, - - Morbidly obese. No conversational dyspnea. HEENT: Atraumatic, PERRLA, EOMI, Normocephalic, - - No scleral icterus or injection noted Oral: Moist Mucosa, No Gingival or Mucosal Lesions/ Ulcerations Neck: Supple, No JVD, No Nodes, Trachea Midline Lungs: No rhonchi, No wheeze, No rales, Diminished - Right greater than left Cardiovascular: Regular rate, Regular Rhythm, Normal S1, Normal S2, No murmurs, No rub noted, No Gallop Abdomen: Bowel Sounds Present, Soft, Non Tender, Non-Distended, Obese Extremities: No clubbing, No cyanosis, Edema Skin: - - Multiple superficial wounds of the upper extremities. Coccyx wound was not evaluated. Musculoskeletal: No Tenderness to Palpation of Joints or Extremities Lymphatic: No Cervical, Supraclavicular, or Inguinal Adenopathy Neurological: Cranial nerves II-XII grossly intact, Neuro grossly intact, Motor Exam 5/5 strength throughout Psych/Mental Status: Anxious, Impulsive, Restless Microbiology Past 72 Hours 08/09/19 Unknown Wound - Buttock Gram Stain - Final 08/09/19 Unknown Wound - Buttock Wound Culture - Final Meth. resistant Staph. aureus Gram positive arik 08/11/19 13:21 Bone - Buttock Gram Stain - Final 08/11/19 13:21 Bone - Buttock Wound Culture - Preliminary Meth. resistant Staph. aureus 08/11/19 06:40 Blood Culture (Wb) - Left Wrist Blood Culture - Preliminary No growth in 48 hours. 08/11/19 06:55 Blood Culture (Wb) - Left Wrist Blood Culture - Preliminary No growth in 48 hours. 08/09/19 06:35 Blood Culture (Wb) - Pic Blood Culture - Preliminary No growth in 48 hours. 08/10/19 04:20 Urine Catheter - Ahmadi Urine Culture - Final Presumptive C albicans 08/11/19 13:15 Tissue - Buttock Gram Stain - Final 08/11/19 13:15 Tissue - Buttock Wound Culture - Preliminary Gram positive organism Laboratory Results 08/11/19 08:56: Diff Path Review Reviewed 08/12/19 07:56: Random Vancomycin 27.3 H 08/12/19 07:56: Differential Comment , Diff Path Review November [facility] 08/12/19 07:56: Sodium 147 H, Potassium 3.6, Chloride 120 H, Carbon Dioxide 20.0 L, Anion Gap 7, BUN 22 H, Creatinine 1.90 H, Estim Creat Clear Calc 23.97, Est GFR (MDRD) Af Amer 34 L, Est GFR (MDRD) Non-Af 28 L, BUN/Creatinine Ratio 11.6, Glucose 121 H, Calcium 7.8 L, Prealbumin 5.4 L 08/12/19 12:03: POC Glucose 154 H 08/12/19 17:39: POC Glucose 139 H 08/12/19 23:23: POC Glucose 102 08/13/19 03:58: WBC 33.8 H*, RBC 3.08 L, Hgb 9.7 L, Hct 31.7 L, MCV 102.9 H, MCH 31.5, MCHC 30.6 L, RDW Std Deviation 62.1 H, RDW Coeff of Harper 16.6 H, Plt Count 598 H, MPV 9.3, Differential Comment SCANNED, Diff Path Review November [facility] 08/13/19 03:58: Sodium 148 H, Potassium 3.6, Chloride 123 H, Carbon Dioxide 19.0 L, Anion Gap 6, BUN 24 H, Creatinine 2.42 H, Estim Creat Clear Calc 18.82, Est GFR (MDRD) Af Amer 26 L, Est GFR (MDRD) Non-Af 21 L, BUN/Creatinine Ratio 9.9 L, Glucose 107 H, Calcium 8.2 L 08/13/19 05:38: POC Glucose 115 H Current Medications Acetaminophen (Tylenol) 650 mg PO Q6H PRN PRN PRN Reason: Pain Score 1-3/Temp > 100.7 F Acetaminophen (Tylenol) 650 mg RECTAL Q4H PRN PRN PRN Reason: Pain Score 1-3/Temp > 100.7 F Albuterol Sulfate (Ventolin Aerosols) 2.5 mg INHALATION Q2H PRN PRN PRN Reason: SOB/Wheezing Allopurinol (Zyloprim) 300 mg PO DAILY [facility] Last Admin: 08/12/19 09:48 Dose: 300 mg Documented by: Aspirin (Ecotrin) 81 mg PO QHS [facility] Last Admin: 08/12/19 23:16 Dose: 81 mg Documented by: Atorvastatin Calcium (Lipitor) 80 mg PO QHS [facility] Last Admin: 08/12/19 23:15 Dose: 80 mg Documented by: Benztropine Mesylate (Cogentin) 0.5 mg PO QHS [facility] Last Admin: 08/12/19 23:15 Dose: 0.5 mg Documented by: Buspirone HCl (Buspar) 10 mg PO BID [facility] Last Admin: 08/12/19 23:16 Dose: 10 mg Documented by: Cholecalciferol (Vitamin D) 5,000 unit PO DAILY [facility] Last Admin: 08/12/19 09:48 Dose: 5,000 unit Documented by: Cyanocobalamin (Vitamin B12) 1,000 mcg PO DAILY [facility] Last Admin: 08/12/19 09:48 Dose: 1,000 mcg Documented by: Glucagon () 1 mg IM .X1 PRN PRN Reason: Hypoglycemia Haloperidol Lactate (Haldol) 1 - 2 mg IV Q4H PRN PRN PRN Reason: SEVERE AGITATION Last Admin: 08/13/19 05:38 Dose: 1 mg Documented by: Vancomycin IV Pharmacy to Dose (1 ea/ Sodium Chloride) 500 mls @ 250 mls/hr IV X1 PRN; Protocol PRN Reason: Rx to Dose Dextrose (Dextrose 10%-Water) 250 mls @ 999 mls/hr IV .Q16M PRN; Protocol PRN Reason: HYPOGLYCEMIA Sodium Chloride () 250 mls @ 15 mls/hr IV .[id number] PRN PRN Reason: Saline Flush Sodium Chloride () 250 mls @ 15 mls/hr IV .[id number] PRN PRN Reason: Additional IVPB Infusion Cefepime HCl 2 gm/ Sodium (Chloride) 100 mls @ 200 mls/hr IV Q24 [facility] Last Infusion: 08/12/19 11:38 Dose: Infused Documented by: Sodium Chloride () 1,000 mls @ 125 mls/hr IV .Q8H [facility] Last Admin: 08/13/19 03:15 Dose: 125 mls/hr Documented by: Insulin Human Lispro (Humalog Kwikpen (Bkc)) 0 unit SC Q6 [facility]; Protocol Last Admin: 08/13/19 05:39 Dose: Not Given Documented by: Levothyroxine Sodium (Synthroid) 75 mcg PO DAILY@0600 [facility] Last Admin: 08/13/19 05:30 Dose: 75 mcg Documented by: Metoprolol Tartrate (Lopressor (Beta Armani)) 25 mg PO BID [facility] Last Admin: 08/12/19 23:16 Dose: 25 mg Documented by: Metronidazole (Flagyl) [facility] Last Admin: 08/12/19 17:56 Dose: 500 mg Documented by: Morphine Sulfate () 1 - 2 mg IV Q3H PRN PRN PRN Reason: Pain Score 1-10/10 Last Admin: 08/13/19 04:25 Dose: 2 mg Documented by: Nutritional Formula ([place] Flavor) [facility] Olanzapine (Zyprexa) 20 mg PO DAILY [facility] Last Admin: 08/12/19 09:48 Dose: 20 mg Documented by: Prochlorperazine Edisylate (Compazine Iv) 5 mg IV Q4H PRN PRN PRN Reason: Breakthrough Nausea/Vomiting Last Admin: 08/10/19 10:33 Dose: 5 mg Documented by: Promethazine HCl (Phenergan Suppository) 12.5 mg RECTAL Q6H PRN PRN PRN Reason: Breakthrough Nausea/Vomiting Sodium Chloride () 10 - 40 ml IV UD PRN PRN Reason: Open End PICC Flush Last Admin: 08/13/19 04:25 Dose: 10 ml Documented by: Sodium Chloride (0.9% Nacl (Sterile) Posiflush) 10 - 40 ml IV UD PRN PRN Reason: Port access or dressing change Sodium Hypochlorite (Dakins Solution 0.25% (1/2 Strength)) 1 applic TOPICAL BID [facility]; Protocol Last Admin: 08/12/19 23:05 Dose: Not Given Documented by: Trazodone HCl (Desyrel) 25 mg PO QHS [facility] Last Admin: 08/12/19 23:16 Dose: 25 mg Documented by: Venlafaxine HCl (Effexor Xr) 150 mg PO DAILY [facility] Last Admin: 08/12/19 09:48 Dose: 150 mg Documented by: Clinical Impression(s) from Imaging Studies Chest X-Ray 08/12/19 13:59 IMPRESSION: Cardiomegaly with increased pleural effusions. Low volume with compression atelectasis as described. No acute superimposed finding. Electronically Signed: Jerod Pascal MD at 14:55 EST , Service support , Medical Necessity - Tobacco Use Smoking Status: Former smoker Tobacco Use: Vapor Assessment/Plan All Active Problems Fecal soiling due to fecal incontinence (Acute) RECOMMENDATIONS: 1. Continue antibiotics per infectious disease 2. Continue plastic surgery evaluation. Continue local wound care. Possible diverting colostomy 3. Wean supplemental oxygen to maintain saturations at or above 90%. 4. Encourage incentive spirometer use. 5. Obtain right-sided thoracentesis 6. BiPAP breaks as tolerated. Continue with sleep IMPRESSIONS: 1. Severe sepsis Patient underwent surgical debridement by plastic surgery. Cultures are currently showing MRSA. Patient is on cefepime and vancomycin, which should cover reported organisms. Patient may require diverting colostomy. Patient does have a significant right pleural effusion noted on chest x-ray. Given bacteremia, diagnostic and therapeutic thoracentesis would be appropriate. 2. Encephalopathy Patient continues to be confused. Unclear if this is true delirium versus baseline mentation. Continue baseline psychiatric medications. Antibiotics will be continued to address her infectious etiologies. 3. Acute on chronic hypercarbic respiratory failure?obstructive sleep apnea Repeat ABG showed good response to AVAPS therapy. This should be continued with sleep, sedation or as rescue during the day if necessary. Patient with improved FiO2 demands this morning. Consider additional diuretic therapy 4. History of bipolar disorder/diabetes mellitus/hypertension/hyperlipidemia/obesity/chronic kidney disease Complicates care, management, recovery and prognosis. Continue home medications as indicated. Code Visit Inpatient E&M: 44819 Subs Hosp L3
[2019-08-13 09:11] LABS: ALB/GLOB Ratio 0.3 RATIO (0.9-2.4); Globulin 3.9 g/dL (2.2-4.2); LDH 565 U/L (84-246); Protein, Total 5.1 g/dL (6.4-8.2)
[2019-08-13] MEDS: metroNIDAZOLE 500 MG Tablet PO ×3 (11:00→17:41)
[2019-08-13] MEDS: Cyanocobalamin 500 MCG Tablet 1000 MCG PO (11:01)
[2019-08-13] MEDS: busPIRone 5 MG Tablet 10 MG PO ×2 (11:01→22:22)
[2019-08-13] MEDS: Metoprolol Tartrate 25 MG Tablet PO ×2 (11:01→22:16)
--- NOTE | 2019-08-13 12:29 | PN_ITS ---
<Ludy Singh - Last Filed: 08/13/19 12:58> Subjective: Patient seen and examined. No acute events overnight. Continues to be confused, restlessness improved. Denies shortness of breath. - Physical Exam Vitals/I&O's: Vital Signs Temp Pulse Resp BP Pulse Ox 97.5 F L 104 H 20 H 113/42 L 94 08/13/19 10:28 08/13/19 11:01 08/13/19 10:28 08/13/19 10:28 08/13/19 10:28 Oxygen Flow Rate (L/min) 7 Oxygen Delivery Method Nasal Cannula Weight: 218 lb 0.595 oz Body Mass Index (BMI) 36.9 Finger Stick Blood Glucose 134 Intake and Output for Last 24 Hours 08/11/19 08/12/19 08/13/19 23:59 23:59 23:59 Intake Total 840 / 840 820 / 820 2011. Output Total 550 / 550 175 / 175 75 / 75 Balance 290 / 290 645 / 645 1937.5 / 1936. General: Alert, Cooperative, Confused, - - Restless HEENT: Atraumatic, PERRLA, EOMI, Normocephalic Oral: Moist Mucosa Neck: Supple, No JVD, Negative Carotid Bruits Lungs: Clear to auscultation, Diminished Cardiovascular: Regular Rhythm, Normal S1, Normal S2, No murmurs, Tachycardic Abdomen: Bowel Sounds Present, Soft, Non Tender, Non-Distended, Obese Extremities: No clubbing, No cyanosis, No edema Skin: - - Bilateral upper extremity abrasions, patient picking at scabs. Sacral stage IV decubitus ulcer, present on admission-dressing intact. Musculoskeletal: No Tenderness to Palpation of Joints or Extremities Neurological: Cranial nerves II-XII grossly intact Psych/Mental Status: Anxious, Impulsive, Restless Microbiology Past 72 Hours 08/11/19 13:21 Bone - Buttock Gram Stain - Final 08/11/19 13:21 Bone - Buttock Wound Culture - Preliminary Meth. resistant Staph. aureus 08/11/19 13:15 Tissue - Buttock Gram Stain - Final 08/11/19 13:15 Tissue - Buttock Wound Culture - Preliminary Staphylococcus aureus Presumptive C albicans 08/09/19 Unknown Wound - Buttock Gram Stain - Final 08/09/19 Unknown Wound - Buttock Wound Culture - Final Meth. resistant Staph. aureus Gram positive arik 08/11/19 06:40 Blood Culture (Wb) - Left Wrist Blood Culture - Preliminary No growth in 48 hours. 08/11/19 06:55 Blood Culture (Wb) - Left Wrist Blood Culture - Preliminary No growth in 48 hours. 08/09/19 06:35 Blood Culture (Wb) - Pic Blood Culture - Preliminary No growth in 48 hours. 08/10/19 04:20 Urine Catheter - Ahmadi Urine Culture - Final Presumptive C albicans Laboratory Results 08/11/19 08:56: Diff Path Review Reviewed 08/12/19 12:03: POC Glucose 154 H 08/12/19 17:39: POC Glucose 139 H 08/12/19 23:23: POC Glucose 102 08/13/19 03:58: WBC 33.8 H*, RBC 3.08 L, Hgb 9.7 L, Hct 31.7 L, MCV 102.9 H, MCH 31.5, MCHC 30.6 L, RDW Std Deviation 62.1 H, RDW Coeff of Harper 16.6 H, Plt Count 598 H, MPV 9.3, Differential Comment SCANNED, Diff Path Review May foll 08/13/19 03:58: Sodium 148 H, Potassium 3.6, Chloride 123 H, Carbon Dioxide 19.0 L, Anion Gap 6, BUN 24 H, Creatinine 2.42 H, Estim Creat Clear Calc 18.82, Est GFR (MDRD) Af Amer 26 L, Est GFR (MDRD) Non-Af 21 L, BUN/Creatinine Ratio 9.9 L, Glucose 107 H, Calcium 8.2 L 08/13/19 03:58: Lactate Dehydrogenase 565 H, Total Protein 5.1 L, Globulin 3.9, Albumin/Globulin Ratio 0.3 L 08/13/19 05:38: POC Glucose 115 H Current Medications Acetaminophen (Tylenol) 650 mg PO Q6H PRN PRN PRN Reason: Pain Score 1-3/Temp > 100.7 F Acetaminophen (Tylenol) 650 mg RECTAL Q4H PRN PRN PRN Reason: Pain Score 1-3/Temp > 100.7 F Albuterol Sulfate (Ventolin Aerosols) 2.5 mg INHALATION Q2H PRN PRN PRN Reason: SOB/Wheezing Allopurinol (Zyloprim) 300 mg PO DAILY [facility] Last Admin: 08/12/19 09:48 Dose: 300 mg Documented by: Aspirin (Ecotrin) 81 mg PO QHS [facility] Last Admin: 08/12/19 23:16 Dose: 81 mg Documented by: Atorvastatin Calcium (Lipitor) 80 mg PO QHS [facility] Last Admin: 08/12/19 23:15 Dose: 80 mg Documented by: Benztropine Mesylate (Cogentin) 0.5 mg PO QHS [facility] Last Admin: 08/12/19 23:15 Dose: 0.5 mg Documented by: Buspirone HCl (Buspar) 10 mg PO BID [facility] Last Admin: 08/13/19 11:01 Dose: 10 mg Documented by: Cholecalciferol (Vitamin D) 5,000 unit PO DAILY [facility] Last Admin: 08/13/19 11:00 Dose: 5,000 unit Documented by: Cyanocobalamin (Vitamin B12) 1,000 mcg PO DAILY [facility] Last Admin: 08/13/19 11:01 Dose: 1,000 mcg Documented by: Glucagon () 1 mg IM .X1 PRN PRN Reason: Hypoglycemia Haloperidol Lactate (Haldol) 1 - 2 mg IV Q4H PRN PRN PRN Reason: SEVERE AGITATION Last Admin: 08/13/19 05:38 Dose: 1 mg Documented by: Vancomycin IV Pharmacy to Dose (1 ea/ Sodium Chloride) 500 mls @ 250 mls/hr IV X1 PRN; Protocol PRN Reason: Rx to Dose Dextrose (Dextrose 10%-Water) 250 mls @ 999 mls/hr IV .Q16M PRN; Protocol PRN Reason: HYPOGLYCEMIA Sodium Chloride () 250 mls @ 15 mls/hr IV .[id number] PRN PRN Reason: Saline Flush Sodium Chloride () 250 mls @ 15 mls/hr IV .[id number] PRN PRN Reason: Additional IVPB Infusion Cefepime HCl 2 gm/ Sodium (Chloride) 100 mls @ 200 mls/hr IV Q24 [facility] Last Admin: 08/13/19 10:58 Dose: 200 mls/hr Documented by: Sodium Chloride () 1,000 mls @ 125 mls/hr IV .Q8H [facility] Last Admin: 08/13/19 10:57 Dose: 125 mls/hr Documented by: Insulin Human Lispro (Humalog Kwikpen (Bkc)) 0 unit SC Q6 [facility]; Protocol Last Admin: 08/13/19 05:39 Dose: Not Given Documented by: Levothyroxine Sodium (Synthroid) 75 mcg PO DAILY@0600 [facility] Last Admin: 08/13/19 05:30 Dose: 75 mcg Documented by: Metoprolol Tartrate (Lopressor (Beta Armani)) 25 mg PO BID [facility] Last Admin: 08/13/19 11:01 Dose: 25 mg Documented by: Metronidazole (Flagyl) 500 mg PO TIDCM [facility] Last Admin: 08/13/19 11:00 Dose: 500 mg Documented by: Morphine Sulfate () 1 - 2 mg IV Q3H PRN PRN PRN Reason: Pain Score 1-10 Last Admin: 08/13/19 04:25 Dose: 2 mg Documented by: Nutritional Formula ([place] Flavor) [facility] Olanzapine (Zyprexa) 20 mg PO DAILY [facility] Last Admin: 08/12/19 09:48 Dose: 20 mg Documented by: Prochlorperazine Edisylate (Compazine Iv) 5 mg IV Q4H PRN PRN PRN Reason: Breakthrough Nausea/Vomiting Last Admin: 08/10/19 10:33 Dose: 5 mg Documented by: Promethazine HCl (Phenergan Suppository) 12.5 mg RECTAL Q6H PRN PRN PRN Reason: Breakthrough Nausea/Vomiting Sodium Chloride () 10 - 40 ml IV UD PRN PRN Reason: Open End PICC Flush Last Admin: 08/13/19 04:25 Dose: 10 ml Documented by: Sodium Chloride (0.9% Nacl (Sterile) Posiflush) 10 - 40 ml IV UD PRN PRN Reason: Port access or dressing change Sodium Hypochlorite (Dakins Solution 0.25% (1/2 Strength)) 1 applic TOPICAL BID [facility]; Protocol Last Admin: 08/13/19 10:45 Dose: Not Given Documented by: Trazodone HCl (Desyrel) 25 mg PO QHS [facility] Last Admin: 08/12/19 23:16 Dose: 25 mg Documented by: Venlafaxine HCl (Effexor Xr) 150 mg PO DAILY [facility] Last Admin: 08/12/19 09:48 Dose: 150 mg Documented by: Medical Necessity - Tobacco Use Smoking Status: Former smoker Tobacco Use: Vapor Assessment/Plan All Active Problems Fecal soiling due to fecal incontinence (Acute) 1. Severe sepsis secondary to infected stage IV sacral pressure ulcer-wound culture growing MRSA. Urine culture growing C albicans, UTI ruled out. Continue IV cefepime and IV vancomycin pending final cultures. ID consulted. Flagyl added. 2. Acute hypoxic respiratory failure with bilateral pleural effusions. CT of chest on admission without focal infiltrate or pleural effusion. Continue supplement oxygen to maintain O2 at or above 90%. IS. Albuterol and DuoNeb aerosols. Repeat chest x-ray 08/12/2019 demonstrated increased pleural effusions. Right-sided thoracentesis ordered. Hold further Lasix given worsening renal function. 3. Infected stage IV sacral pressure ulcer-status post recent debridement due to necrotizing soft tissue infection 07/25/[address] Kaiser, cultures grew Serratia marcescens at that time. Repeat culture preliminary growing MRSA. Consult Dr. Kaiser. Consult wound RN, continue dressing changes per orders. Given incontinence, patient may need considered for diverting colostomy. Patient underwent further sacral wound debridement 08/11/19. Anticipate patient will need LTAC for further management pending diverting colostomy. Family discussing if they would like to proceed with diverting colostomy. 4. Acute metabolic encephalopathy-secondary to #1/#2. Treat underlying processes as noted above. Also suspect underlying psychiatric history contributing to current presentation. Continue home psychiatric regimen. 5. Type 2 diabetes [id number] with sliding scale insulin. 6. Anxiety/Depression/Bipolar disorder-continue olanzapine, venlafaxine, t razodone, BuSpar, hydroxyzine. 7. ILIANA on Chronic kidney disease stage III- renal function worsening. Obtain renal ultrasound. Consult nephrology. Trend BMP. 8. Hypertension-hold BP regimen given hypotension on admission. 9. Hyperlipidemia-continue statin. 10. Hypothyroidism-continue home Synthroid regimen. 11. GERD-continue PPI. 12. Tobacco use via vaping-encourage cessation. DVT prophylaxis-Lovenox subcu Discharge planning: SNF vs LTAC when medically stable. Patient previously from SNF, TCU. Given patient's significant wound, confusion at baseline and multiple comorbidities, feel patient would be more appropriate for LTAC for ongoing care. This patient was seen by SHERI Degroot under the supervision of Dr. Campos. <Jules Campos F - Last Filed: 08/13/19 16:06> - Physical Exam Vitals/I&O's: Vital Signs Temp Pulse Resp BP Pulse Ox 97.5 F L 102 H 20 H 113/42 L 94 08/13/19 10:28 08/13/19 15:12 08/13/19 10:28 08/13/19 10:28 08/13/19 10:28 Oxygen Flow Rate (L/min) 7 Oxygen Delivery Method Nasal Cannula Weight: 218 lb 0.595 oz Body Mass Index (BMI) 36.9 Finger Stick Blood Glucose 134 Intake and Output for Last 24 Hours 08/11/19 08/12/19 08/13/19 23:59 23:59 23:59 Intake Total 840 / 840 820 / 820 2385.42 / 2385.42 Output Total 550 / 550 175 / 175 375 / 375 Balance 290 / 290 645 / 645 2010.42 / 2009.42 Microbiology Past 72 Hours 08/11/19 13:21 Bone - Buttock Gram Stain - Final 08/11/19 13:21 Bone - Buttock Wound Culture - Preliminary Meth. resistant Staph. aureus 08/11/19 13:15 Tissue - Buttock Gram Stain - Final 08/11/19 13:15 Tissue - Buttock Wound Culture - Preliminary Staphylococcus aureus Presumptive C albicans 08/09/19 Unknown Wound - Buttock Gram Stain - Final 08/09/19 Unknown Wound - Buttock Wound Culture - Final Meth. resistant Staph. aureus Gram positive arik 08/11/19 06:40 Blood Culture (Wb) - Left Wrist Blood Culture - Preliminary No growth in 48 hours. 08/11/19 06:55 Blood Culture (Wb) - Left Wrist Blood Culture - Preliminary No growth in 48 hours. 08/09/19 06:35 Blood Culture (Wb) - Pic Blood Culture - Preliminary No growth in 48 hours. 08/10/19 04:20 Urine Catheter - Ahmadi Urine Culture - Final Presumptive C albicans Laboratory Results 08/12/19 07:56: Diff Path Review Reviewed 08/12/19 17:39: POC Glucose 139 H 08/12/19 23:23: POC Glucose 102 08/13/19 03:58: WBC 33.8 H*, RBC 3.08 L, Hgb 9.7 L, Hct 31.7 L, MCV 102.9 H, MCH 31.5, MCHC 30.6 L, RDW Std Deviation 62.1 H, RDW Coeff of Harper 16.6 H, Plt Count 598 H, MPV 9.3, Differential Comment SCANNED, Diff Path Review Reviewed 08/13/19 03:58: Sodium 148 H, Potassium 3.6, Chloride 123 H, Carbon Dioxide 19.0 L, Anion Gap 6, BUN 24 H, Creatinine 2.42 H, Estim Creat Clear Calc 18.82, Est GFR (MDRD) Af Amer 26 L, Est GFR (MDRD) Non-Af 21 L, BUN/Creatinine Ratio 9.9 L, Glucose 107 H, Calcium 8.2 L 08/13/19 03:58: Lactate Dehydrogenase 565 H, Total Protein 5.1 L, Globulin 3.9, Albumin/Globulin Ratio 0.3 L 08/13/19 05:38: POC Glucose 115 H 08/13/19 12:55: POC Glucose 134 H Current Medications Acetaminophen (Tylenol) 650 mg PO Q6H PRN PRN PRN Reason: Pain Score 1-3/Temp > 100.7 F Acetaminophen (Tylenol) 650 mg RECTAL Q4H PRN PRN PRN Reason: Pain Score 1-3/Temp > 100.7 F Albuterol Sulfate (Ventolin Aerosols) 2.5 mg INHALATION Q2H PRN PRN PRN Reason: SOB/Wheezing Allopurinol (Zyloprim) 300 mg PO DAILY [facility] Last Admin: 08/13/19 12:53 Dose: 300 mg Documented by: Aspirin (Ecotrin) 81 mg PO QHS [facility] Last Admin: 08/12/19 23:16 Dose: 81 mg Documented by: Atorvastatin Calcium (Lipitor) 80 mg PO QHS [facility] Last Admin: 08/12/19 23:15 Dose: 80 mg Documented by: Benztropine Mesylate (Cogentin) 0.5 mg PO QHS [facility] Last Admin: 08/12/19 23:15 Dose: 0.5 mg Documented by: Buspirone HCl (Buspar) 10 mg PO BID [facility] Last Admin: 08/13/19 11:01 Dose: 10 mg Documented by: Cholecalciferol (Vitamin D) 5,000 unit PO DAILY [facility] Last Admin: 08/13/19 11:00 Dose: 5,000 unit Documented by: Cyanocobalamin (Vitamin B12) 1,000 mcg PO DAILY [facility] Last Admin: 08/13/19 11:01 Dose: 1,000 mcg Documented by: Glucagon () 1 mg IM .X1 PRN PRN Reason: Hypoglycemia Haloperidol Lactate (Haldol) 1 - 2 mg IV Q4H PRN PRN PRN Reason: SEVERE AGITATION Last Admin: 08/13/19 05:38 Dose: 1 mg Documented by: Vancomycin IV Pharmacy to Dose (1 ea/ Sodium Chloride) 500 mls @ 250 mls/hr IV X1 PRN; Protocol PRN Reason: Rx to Dose Dextrose (Dextrose 10%-Water) 250 mls @ 999 mls/hr IV .Q16M PRN; Protocol PRN Reason: HYPOGLYCEMIA Sodium Chloride () 250 mls @ 15 mls/hr IV .[id number] PRN PRN Reason: Saline Flush Sodium Chloride () 250 mls @ 15 mls/hr IV .[id number] PRN PRN Reason: Additional IVPB Infusion Cefepime HCl 2 gm/ Sodium (Chloride) 100 mls @ 200 mls/hr IV Q24 [facility] Last Infusion: 08/13/19 13:49 Dose: Infused Documented by: Insulin Human Lispro (Humalog Kwikpen (Bkc)) 0 unit SC Q6 [facility]; Protocol Last Admin: 08/13/19 13:04 Dose: Not Given Documented by: Levothyroxine Sodium (Synthroid) 75 mcg PO DAILY@0600 [facility] Last Admin: 08/13/19 05:30 Dose: 75 mcg Documented by: Metoprolol Tartrate (Lopressor (Beta Armani)) 25 mg PO BID [facility] Last Admin: 08/13/19 11:01 Dose: 25 mg Documented by: Metronidazole (Flagyl) 500 mg PO TIDCM [facility] Last Admin: 08/13/19 12:53 Dose: 500 mg Documented by: Morphine Sulfate () 1 - 2 mg IV Q3H PRN PRN PRN Reason: Pain Score 1-10/10 Last Admin: 08/13/19 04:25 Dose: 2 mg Documented by: Nutritional Formula ([place] Flavor) [facility] Olanzapine (Zyprexa) 20 mg PO DAILY [facility] Last Admin: 08/13/19 12:53 Dose: 20 mg Documented by: Prochlorperazine Edisylate (Compazine Iv) 5 mg IV Q4H PRN PRN PRN Reason: Breakthrough Nausea/Vomiting Last Admin: 08/10/19 10:33 Dose: 5 mg Documented by: Promethazine HCl (Phenergan Suppository) 12.5 mg RECTAL Q6H PRN PRN PRN Reason: Breakthrough Nausea/Vomiting Sodium Chloride () 10 - 40 ml IV UD PRN PRN Reason: Open End PICC Flush Last Admin: 08/13/19 04:25 Dose: 10 ml Documented by: Sodium Chloride (0.9% Nacl (Sterile) Posiflush) 10 - 40 ml IV UD PRN PRN Reason: Port access or dressing change Sodium Hypochlorite (Dakins Solution 0.25% (1/2 Strength)) 1 applic TOPICAL BID [facility]; Protocol Last Admin: 08/13/19 10:45 Dose: Not Given Documented by: Trazodone HCl (Desyrel) 25 mg PO QHS [facility] Last Admin: 08/12/19 23:16 Dose: 25 mg Documented by: Venlafaxine HCl (Effexor Xr) 150 mg PO DAILY [facility] Last Admin: 08/13/19 12:53 Dose: 150 mg Documented by: Code Visit Addendum: Dr. Campos I personally examined the patient and reviewed the chart. I agree with the above. 63-year-old female who was recently in the TCU presented for hypoxia and possible pneumonia. She did have a CT scan that did not show any focal infiltrate or signs of pneumonia. Pulmonology was consulted and we appreciate their assistance. She has been very confused which does appear to be her baseline per report, however she was given Haldol overnight initially, which did not help and therefore she was ordered zyprexa here in the hospital and see if that helps. She also has a large decubitus ulcer, and surgery is been consulted to assist with management as well as infectious disease. The wound is growing MRSA, will continue with vancomycin and appreciate ID help, she was also on cefepime and Flagyl. S/p debridement and plan for diverting colostomy next week. There was some concern for pleural effusion she was seen entering the IR suite today and was found to just have a tiny effusion so she did not have any thing drained. Inpatient E&M: [id number] Subs Hosp L2
--- NOTE | 2019-08-13 12:47 | US_ITS ---
STUDY: RENAL ULTRASOUND - COMPLETE REASON FOR EXAM: Female, 63 years old. RENAL FAILURE -- PREVIOUS SCAN 07/25/19 TECHNIQUE: Ultrasound evaluation of the kidneys was performed with real-time and static sanchez-scale imaging. COMPARISON: Prior exam of 07/25/2019 FINDINGS: RIGHT KIDNEY: Normal location of the right kidney, which is normal in size. The right kidney measures 9.8 x 5.6 x 5.3 cm. There is a normal cortex of the right kidney. The renal cortex measures 1.5 cm. There is no right renal mass or cyst. There are no right renal calculi. There is no right hydronephrosis. DISTAL RIGHT URETER: There is non-visualization of the distal right ureter. There is no demonstrated right ureterovesical junction calculus. There is no demonstrated right ureteral jet. LEFT KIDNEY: Normal location of the left kidney, which is normal in size. The left kidney measures 9.7 x 4.1 x 4.6 cm. There is a normal cortex of the left kidney. The renal cortex measures 1.3 cm. There is no left renal mass or cyst. There are no left renal calculi. There is no left hydronephrosis. DISTAL LEFT URETER: There is non-visualization of the distal left ureter. There is no demonstrated left ureterovesical junction calculus. There is no demonstrated left ureteral jet. BLADDER: The urinary bladder is empty by Ahmadi catheter. US/Kidney and Bladder IMPRESSION: Normal renal ultrasound bilaterally with no changes from prior exam. Empty urinary bladder by Ahmadi catheter. Electronically Signed: Karolina Graham MD at 15:44 EST , Service support ,
[2019-08-13] MEDS: Allopurinol 300 MG Tablet PO (12:53)
[2019-08-13] MEDS: OLANZapine 10 MG Tablet 20 MG PO (12:53)
[2019-08-13] MEDS: Venlafaxine XR 150 MG Capsule PO (12:53)
[2019-08-13 13:14] LABS: Pathologist Review Reviewed
[2019-08-13 13:16] LABS: Bedside Glucose 134 mg/dL (70-110)
[2019-08-13 13:21] LABS: Pathologist Review Reviewed
--- NOTE | 2019-08-13 13:44 | PN.SURG_ITS ---
Patient Problems: Active and Suspected Problems ILIANA (acute kidney injury) (Acute) Objective: Postop #[address] Minimal drainage in the canister. Patient is resting comfortably. Above events noted. - Physical Exam Vitals/I&O's: Vital Signs Temp Pulse Resp BP Pulse Ox 97.5 F L 104 H 20 H 113/42 L 94 08/13/19 10:28 08/13/19 11:01 08/13/19 10:28 08/13/19 10:28 08/13/19 10:28 Oxygen Flow Rate (L/min) 7 Oxygen Delivery Method Nasal Cannula Weight: 218 lb 0.595 oz Body Mass Index (BMI) 36.9 Finger Stick Blood Glucose 134 Intake and Output for Last 24 Hours 08/11/19 08/12/19 08/13/19 23:59 23:59 23:59 Intake Total 840 / 840 820 / 820 2285.42 / 2285.42 Output Total 550 / 550 175 / 175 375 / 375 Balance 290 / 290 645 / 645 1910.42 / 1910.42 Skin: Ulcer/ Wound - wound is stable. VAC in place. Minimal drainage in the canister. Microbiology Past 72 Hours 08/11/19 13:21 Bone - Buttock Gram Stain - Final 08/11/19 13:21 Bone - Buttock Wound Culture - Preliminary Meth. resistant Staph. aureus 08/11/19 13:15 Tissue - Buttock Gram Stain - Final 08/11/19 13:15 Tissue - Buttock Wound Culture - Preliminary Staphylococcus aureus Presumptive C albicans 08/09/19 Unknown Wound - Buttock Gram Stain - Final 08/09/19 Unknown Wound - Buttock Wound Culture - Final Meth. resistant Staph. aureus Gram positive arik 08/11/19 06:40 Blood Culture (Wb) - Left Wrist Blood Culture - Preliminary No growth in 48 hours. 08/11/19 06:55 Blood Culture (Wb) - Left Wrist Blood Culture - Preliminary No growth in 48 hours. 08/09/19 06:35 Blood Culture (Wb) - Pic Blood Culture - Preliminary No growth in 48 hours. 08/10/19 04:20 Urine Catheter - Ahmadi Urine Culture - Final Presumptive C albicans Pathology - pending. Laboratory Results 08/12/19 07:56: Diff Path Review Reviewed 08/12/19 17:39: POC Glucose 139 H 08/12/19 23:23: POC Glucose 102 08/13/19 03:58: WBC 33.8 H*, RBC 3.08 L, Hgb 9.7 L, Hct 31.7 L, MCV 102.9 H, MCH 31.5, MCHC 30.6 L, RDW Std Deviation 62.1 H, RDW Coeff of Harper 16.6 H, Plt Count 598 H, MPV 9.3, Differential Comment SCANNED, Diff Path Review Reviewed 08/13/19 03:58: Sodium 148 H, Potassium 3.6, Chloride 123 H, Carbon Dioxide 19.0 L, Anion Gap 6, BUN 24 H, Creatinine 2.42 H, Estim Creat Clear Calc 18.82, Est GFR (MDRD) Af Amer 26 L, Est GFR (MDRD) Non-Af 21 L, BUN/Creatinine Ratio 9.9 L, Glucose 107 H, Calcium 8.2 L 08/13/19 03:58: Lactate Dehydrogenase 565 H, Total Protein 5.1 L, Globulin 3.9, Albumin/Globulin Ratio 0.3 L 08/13/19 05:38: POC Glucose 115 H 08/13/19 12:55: POC Glucose 134 H Current Medications Acetaminophen (Tylenol) 650 mg PO Q6H PRN PRN PRN Reason: Pain Score 1-3/Temp > 100.7 F Acetaminophen (Tylenol) 650 mg RECTAL Q4H PRN PRN PRN Reason: Pain Score 1-3/Temp > 100.7 F Albuterol Sulfate (Ventolin Aerosols) 2.5 mg INHALATION Q2H PRN PRN PRN Reason: SOB/Wheezing Allopurinol (Zyloprim) 300 mg PO DAILY [facility] Last Admin: 08/13/19 12:53 Dose: 300 mg Documented by: Aspirin (Ecotrin) 81 mg PO QHS [facility] Last Admin: 08/12/19 23:16 Dose: 81 mg Documented by: Atorvastatin Calcium (Lipitor) 80 mg PO QHS [facility] Last Admin: 08/12/19 23:15 Dose: 80 mg Documented by: Benztropine Mesylate (Cogentin) 0.5 mg PO QHS [facility] Last Admin: 08/12/19 23:15 Dose: 0.5 mg Documented by: Buspirone HCl (Buspar) 10 mg PO BID [facility] Last Admin: 08/13/19 11:01 Dose: 10 mg Documented by: Cholecalciferol (Vitamin D) 5,000 unit PO DAILY [facility] Last Admin: 08/13/19 11:00 Dose: 5,000 unit Documented by: Cyanocobalamin (Vitamin B12) 1,000 mcg PO DAILY [facility] Last Admin: 08/13/19 11:01 Dose: 1,000 mcg Documented by: Glucagon () 1 mg IM .X1 PRN PRN Reason: Hypoglycemia Haloperidol Lactate (Haldol) 1 - 2 mg IV Q4H PRN PRN PRN Reason: SEVERE AGITATION Last Admin: 08/13/19 05:38 Dose: 1 mg Documented by: Vancomycin IV Pharmacy to Dose (1 ea/ Sodium Chloride) 500 mls @ 250 mls/hr IV X1 PRN; Protocol PRN Reason: Rx to Dose Dextrose (Dextrose 10%-Water) 250 mls @ 999 mls/hr IV .Q16M PRN; Protocol PRN Reason: HYPOGLYCEMIA Sodium Chloride () 250 mls @ 15 mls/hr IV .[id number] PRN PRN Reason: Saline Flush Sodium Chloride () 250 mls @ 15 mls/hr IV .[id number] PRN PRN Reason: Additional IVPB Infusion Cefepime HCl 2 gm/ Sodium (Chloride) 100 mls @ 200 mls/hr IV Q24 [facility] Last Admin: 08/13/19 10:58 Dose: 200 mls/hr Documented by: Insulin Human Lispro (Humalog Kwikpen (Bkc)) 0 unit SC Q6 [facility]; Protocol Last Admin: 08/13/19 13:04 Dose: Not Given Documented by: Levothyroxine Sodium (Synthroid) 75 mcg PO DAILY@0600 [facility] Last Admin: 08/13/19 05:30 Dose: 75 mcg Documented by: Metoprolol Tartrate (Lopressor (Beta Armani)) 25 mg PO BID [facility] Last Admin: 08/13/19 11:01 Dose: 25 mg Documented by: Metronidazole (Flagyl) 500 mg PO TIDCM [facility] Last Admin: 08/13/19 12:53 Dose: 500 mg Documented by: Morphine Sulfate () 1 - 2 mg IV Q3H PRN PRN PRN Reason: Pain Score 1-10/10 Last Admin: 08/13/19 04:25 Dose: 2 mg Documented by: Nutritional Formula ([place] Flavor) [facility] Olanzapine (Zyprexa) 20 mg PO DAILY [facility] Last Admin: 08/13/19 12:53 Dose: 20 mg Documented by: Prochlorperazine Edisylate (Compazine Iv) 5 mg IV Q4H PRN PRN PRN Reason: Breakthrough Nausea/Vomiting Last Admin: 08/10/19 10:33 Dose: 5 mg Documented by: Promethazine HCl (Phenergan Suppository) 12.5 mg RECTAL Q6H PRN PRN PRN Reason: Breakthrough Nausea/Vomiting Sodium Chloride () 10 - 40 ml IV UD PRN PRN Reason: Open End PICC Flush Last Admin: 08/13/19 04:25 Dose: 10 ml Documented by: Sodium Chloride (0.9% Nacl (Sterile) Posiflush) 10 - 40 ml IV UD PRN PRN Reason: Port access or dressing change Sodium Hypochlorite (Dakins Solution 0.25% (1/2 Strength)) 1 applic TOPICAL BID [facility]; Protocol Last Admin: 08/13/19 10:45 Dose: Not Given Documented by: Trazodone HCl (Desyrel) 25 mg PO QHS [facility] Last Admin: 08/12/19 23:16 Dose: 25 mg Documented by: Venlafaxine HCl (Effexor Xr) 150 mg PO DAILY [facility] Last Admin: 08/13/19 12:53 Dose: 150 mg Documented by: Medical Necessity - Tobacco Use Smoking Status: Former smoker Tobacco Use: Vapor Assessment/Plan All Active Problems ILIANA (acute kidney injury) (Acute) Fecal soiling due to fecal incontinence (Acute) 1. 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 2. Diabetes mellitus. 3. Stool contamination. 4. Smoker. 5. s/p excision infected necrotizing right buttock and sacral pressure sore, Stage IV, with partial ostectomy for osteomyelitis. Right buttock and sacral pressure sore is stable. VAC in place. Minimal drainage in the canister. To be changed three times per week. She is being evaluated for a diverting colostomy. If stool becomes an issue prior to the colostomy, can hold the VAC and resume Dakin's dressing changes. Operative cultures show MRSA and Charmaine in the soft tissue and MRSA in the bone. She is currently on Vancomycin and Cefepime and Flagyl. Still has high WBC. Prealbumin was 5.4. Encourage nutritional supplementation with protein to help the healing process. After discharge, [facility]. Encouraged patient to stop smoking as it may have deleterious effects on wound healing.
--- NOTE | 2019-08-13 14:10 | NURSING ---
pt is currently off the unit for a thoracentesis.
--- NOTE | 2019-08-13 15:53 | PN.ID_ITS ---
Subjective: Feeling ok, no fever, no abd pain - Physical Exam Vitals/I&O's: Vital Signs Temp Pulse Resp BP Pulse Ox 97.5 F L 102 H 20 H 113/42 L 94 08/13/19 10:28 08/13/19 15:12 08/13/19 10:28 08/13/19 10:28 08/13/19 10:28 Oxygen Flow Rate (L/min) 7 Oxygen Delivery Method Nasal Cannula Weight: 98.9 kg Body Mass Index (BMI) 36.9 Finger Stick Blood Glucose 134 Intake and Output for Last 24 Hours 08/11/19 08/12/19 08/13/19 23:59 23:59 23:59 Intake Total 840 / 840 820 / 820 2385.42 / 2385.42 Output Total 550 / 550 175 / 175 375 / 375 Balance 290 / 290 645 / 645 2009. General: Alert, Cooperative, No apparent distress Lungs: Clear to auscultation, Normal air movement Cardiovascular: Regular rate, Regular Rhythm Abdomen: Soft, Non Tender, Non-Distended Skin: No rashes, Ulcer/ Wound - reviewed photo Microbiology Past 72 Hours 08/11/19 13:21 Bone - Buttock Gram Stain - Final 08/11/19 13:21 Bone - Buttock Wound Culture - Preliminary Meth. resistant Staph. aureus 08/11/19 13:15 Tissue - Buttock Gram Stain - Final 08/11/19 13:15 Tissue - Buttock Wound Culture - Preliminary Staphylococcus aureus Presumptive C albicans 08/09/19 Unknown Wound - Buttock Gram Stain - Final 08/09/19 Unknown Wound - Buttock Wound Culture - Final Meth. resistant Staph. aureus Gram positive arik 08/11/19 06:40 Blood Culture (Wb) - Left Wrist Blood Culture - Preliminary No growth in 48 hours. 08/11/19 06:55 Blood Culture (Wb) - Left Wrist Blood Culture - Preliminary No growth in 48 hours. 08/09/19 06:35 Blood Culture (Wb) - Pic Blood Culture - Preliminary No growth in 48 hours. 08/10/19 04:20 Urine Catheter - Ahmadi Urine Culture - Final Presumptive C albicans Laboratory Results 08/12/19 07:56: Diff Path Review Reviewed 08/12/19 17:39: POC Glucose 139 H 08/12/19 23:23: POC Glucose 102 08/13/19 03:58: WBC 33.8 H*, RBC 3.08 L, Hgb 9.7 L, Hct 31.7 L, MCV 102.9 H, MCH 31.5, MCHC 30.6 L, RDW Std Deviation 62.1 H, RDW Coeff of Harper 16.6 H, Plt Count 598 H, MPV 9.3, Differential Comment SCANNED, Diff Path Review Reviewed 08/13/19 03:58: Sodium 148 H, Potassium 3.6, Chloride 123 H, Carbon Dioxide 19.0 L, Anion Gap 6, BUN 24 H, Creatinine 2.42 H, Estim Creat Clear Calc 18.82, Est GFR (MDRD) Af Amer 26 L, Est GFR (MDRD) Non-Af 21 L, BUN/Creatinine Ratio 9.9 L, Glucose 107 H, Calcium 8.2 L 08/13/19 03:58: Lactate Dehydrogenase 565 H, Total Protein 5.1 L, Globulin 3.9, Albumin/Globulin Ratio 0.3 L 08/13/19 05:38: POC Glucose 115 H 08/13/19 12:55: POC Glucose 134 H Current Medications Acetaminophen (Tylenol) 650 mg PO Q6H PRN PRN PRN Reason: Pain Score 1-3/Temp > 100.7 F Acetaminophen (Tylenol) 650 mg RECTAL Q4H PRN PRN PRN Reason: Pain Score 1-3/Temp > 100.7 F Albuterol Sulfate (Ventolin Aerosols) 2.5 mg INHALATION Q2H PRN PRN PRN Reason: SOB/Wheezing Allopurinol (Zyloprim) 300 mg PO DAILY [facility] Last Admin: 08/13/19 12:53 Dose: 300 mg Documented by: Aspirin (Ecotrin) 81 mg PO QHS [facility] Last Admin: 08/12/19 23:16 Dose: 81 mg Documented by: Atorvastatin Calcium (Lipitor) 80 mg PO QHS [facility] Last Admin: 08/12/19 23:15 Dose: 80 mg Documented by: Benztropine Mesylate (Cogentin) 0.5 mg PO QHS [facility] Last Admin: 08/12/19 23:15 Dose: 0.5 mg Documented by: Buspirone HCl (Buspar) 10 mg PO BID [facility] Last Admin: 08/13/19 11:01 Dose: 10 mg Documented by: Cholecalciferol (Vitamin D) 5,000 unit PO DAILY [facility] Last Admin: 08/13/19 11:00 Dose: 5,000 unit Documented by: Cyanocobalamin (Vitamin B12) 1,000 mcg PO DAILY [facility] Last Admin: 08/13/19 11:01 Dose: 1,000 mcg Documented by: Glucagon () 1 mg IM .X1 PRN PRN Reason: Hypoglycemia Haloperidol Lactate (Haldol) 1 - 2 mg IV Q4H PRN PRN PRN Reason: SEVERE AGITATION Last Admin: 08/13/19 05:38 Dose: 1 mg Documented by: Vancomycin IV Pharmacy to Dose (1 ea/ Sodium Chloride) 500 mls @ 250 mls/hr IV X1 PRN; Protocol PRN Reason: Rx to Dose Dextrose (Dextrose 10%-Water) 250 mls @ 999 mls/hr IV .Q16M PRN; Protocol PRN Reason: HYPOGLYCEMIA Sodium Chloride () 250 mls @ 15 mls/hr IV .[id number] PRN PRN Reason: Saline Flush Sodium Chloride () 250 mls @ 15 mls/hr IV .[id number] PRN PRN Reason: Additional IVPB Infusion Cefepime HCl 2 gm/ Sodium (Chloride) 100 mls @ 200 mls/hr IV Q24 [facility] Last Infusion: 08/13/19 13:49 Dose: Infused Documented by: Insulin Human Lispro (Humalog Kwikpen (Bkc)) 0 unit SC Q6 [facility]; Protocol Last Admin: 08/13/19 13:04 Dose: Not Given Documented by: Levothyroxine Sodium (Synthroid) 75 mcg PO DAILY@0600 [facility] Last Admin: 08/13/19 05:30 Dose: 75 mcg Documented by: Metoprolol Tartrate (Lopressor (Beta Armani)) 25 mg PO BID [facility] Last Admin: 08/13/19 11:01 Dose: 25 mg Documented by: Metronidazole (Flagyl) 500 mg PO TIDCM [facility] Last Admin: 08/13/19 12:53 Dose: 500 mg Documented by: Morphine Sulfate () 1 - 2 mg IV Q3H PRN PRN PRN Reason: Pain Score 1-10/10 Last Admin: 08/13/19 04:25 Dose: 2 mg Documented by: Nutritional Formula ([place] Flavor) [facility] Olanzapine (Zyprexa) 20 mg PO DAILY [facility] Last Admin: 08/13/19 12:53 Dose: 20 mg Documented by: Prochlorperazine Edisylate (Compazine Iv) 5 mg IV Q4H PRN PRN PRN Reason: Breakthrough Nausea/Vomiting Last Admin: 08/10/19 10:33 Dose: 5 mg Documented by: Promethazine HCl (Phenergan Suppository) 12.5 mg RECTAL Q6H PRN PRN PRN Reason: Breakthrough Nausea/Vomiting Sodium Chloride () 10 - 40 ml IV UD PRN PRN Reason: Open End PICC Flush Last Admin: 08/13/19 04:25 Dose: 10 ml Documented by: Sodium Chloride (0.9% Nacl (Sterile) Posiflush) 10 - 40 ml IV UD PRN PRN Reason: Port access or dressing change Sodium Hypochlorite (Dakins Solution 0.25% (1/2 Strength)) 1 applic TOPICAL BID [facility]; Protocol Last Admin: 08/13/19 10:45 Dose: Not Given Documented by: Trazodone HCl (Desyrel) 25 mg PO QHS [facility] Last Admin: 08/12/19 23:16 Dose: 25 mg Documented by: Venlafaxine HCl (Effexor Xr) 150 mg PO DAILY [facility] Last Admin: 08/13/19 12:53 Dose: 150 mg Documented by: Medical Necessity - Tobacco Use Smoking Status: Former smoker Tobacco Use: Vapor Route of nutrition/ use of supplements: [] Nutritional Intake: [] IV Site: [] Ahmadi Catheter: [] - Assessment/Plan Antibiotics: [] Assessment/Plan: [] 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 Prior cxs with corynebacteria, ecoli, serratia, anaerobes. Recent ucx with VRE and heidi. Taken to [place] 2/[address] Kaiser, bone cx sent. On vanc/cefepime, added flagyl 2/. Diverting ostomy planned. Will follow
[2019-08-13 17:41] LABS: Bedside Glucose 107 mg/dL (70-110)
--- NOTE | 2019-08-13 17:53 | CON.PCM_ITS ---
Problem List (1) ILIANA (acute kidney injury) Status: Acute Consultation - Renal 08/13/19 PCP/ Referring MD: Requesting physician: ILIANA Primary care physician: Zaira Donaldson DO Reason for Consultation:: ILIANA - History of Present Illness History of Present Illness: The patient is a 63 year old F who was admitted to hospital few days ago with sacral decubitus ulcer. renal consulted for ILIANA, she has known history of decubitus ulcer. was at rehab and went home. came back with same issues. currently on broad spectrum abx including vanco, cefepime and flagyl. baseline cr was normal. now upto more than 2. currently denies any complaints. - Allergies Allergies: Allergies Iodinated Contrast Media [CONTRASTS] Allergy (Verified 07/24/19 16:36) Hives morphine Adverse Reaction (Verified 07/24/19 16:36) Nausea - Current Medications Current Medications: Current Medications Acetaminophen (Tylenol) 650 mg PO Q6H PRN PRN PRN Reason: Pain Score 1-3/Temp > 100.7 F Acetaminophen (Tylenol) 650 mg RECTAL Q4H PRN PRN PRN Reason: Pain Score 1-3/Temp > 100.7 F Albuterol Sulfate (Ventolin Aerosols) 2.5 mg INHALATION Q2H PRN PRN PRN Reason: SOB/Wheezing Allopurinol (Zyloprim) 300 mg PO DAILY [facility] Last Admin: 08/13/19 12:53 Dose: 300 mg Documented by: Aspirin (Ecotrin) 81 mg PO QHS [facility] Last Admin: 08/12/19 23:16 Dose: 81 mg Documented by: Atorvastatin Calcium (Lipitor) 80 mg PO QHS [facility] Last Admin: 08/12/19 23:15 Dose: 80 mg Documented by: Benztropine Mesylate (Cogentin) 0.5 mg PO QHS [facility] Last Admin: 08/12/19 23:15 Dose: 0.5 mg Documented by: Buspirone HCl (Buspar) 10 mg PO BID [facility] Last Admin: 08/13/19 11:01 Dose: 10 mg Documented by: Cholecalciferol (Vitamin D) 5,000 unit PO DAILY [facility] Last Admin: 08/13/19 11:00 Dose: 5,000 unit Documented by: Cyanocobalamin (Vitamin B12) 1,000 mcg PO DAILY [facility] Last Admin: 08/13/19 11:01 Dose: 1,000 mcg Documented by: Glucagon () 1 mg IM .X1 PRN PRN Reason: Hypoglycemia Haloperidol Lactate (Haldol) 1 - 2 mg IV Q4H PRN PRN PRN Reason: SEVERE AGITATION Last Admin: 08/13/19 05:38 Dose: 1 mg Documented by: Vancomycin IV Pharmacy to Dose (1 ea/ Sodium Chloride) 500 mls @ 250 mls/hr IV X1 PRN; Protocol PRN Reason: Rx to Dose Dextrose (Dextrose 10%-Water) 250 mls @ 999 mls/hr IV .Q16M PRN; Protocol PRN Reason: HYPOGLYCEMIA Sodium Chloride () 250 mls @ 15 mls/hr IV .[id number] PRN PRN Reason: Saline Flush Sodium Chloride () 250 mls @ 15 mls/hr IV .[id number] PRN PRN Reason: Additional IVPB Infusion Cefepime HCl 2 gm/ Sodium (Chloride) 100 mls @ 200 mls/hr IV Q24 [facility] Last Infusion: 08/13/19 13:49 Dose: Infused Documented by: Insulin Human Lispro (Humalog Kwikpen (Bkc)) 0 unit SC Q6 [facility]; Protocol Last Admin: 08/13/19 17:36 Dose: Not Given Documented by: Levothyroxine Sodium (Synthroid) 75 mcg PO DAILY@0600 [facility] Last Admin: 08/13/19 05:30 Dose: 75 mcg Documented by: Metoprolol Tartrate (Lopressor (Beta Armani)) 25 mg PO BID [facility] Last Admin: 08/13/19 11:01 Dose: 25 mg Documented by: Metronidazole (Flagyl) 500 mg PO TIDCM [facility] Last Admin: 08/13/19 17:41 Dose: 500 mg Documented by: Morphine Sulfate () 1 - 2 mg IV Q3H PRN PRN PRN Reason: Pain Score 1-10/10 Last Admin: 08/13/19 04:25 Dose: 2 mg Documented by: Nutritional Formula ([place] - Casey Flavor) [facility] Last Admin: 08/13/19 17:41 Dose: 1 packet Documented by: Olanzapine (Zyprexa) 20 mg PO DAILY [facility] Last Admin: 08/13/19 12:53 Dose: 20 mg Documented by: Prochlorperazine Edisylate (Compazine Iv) 5 mg IV Q4H PRN PRN PRN Reason: Breakthrough Nausea/Vomiting Last Admin: 08/10/19 10:33 Dose: 5 mg Documented by: Promethazine HCl (Phenergan Suppository) 12.5 mg RECTAL Q6H PRN PRN PRN Reason: Breakthrough Nausea/Vomiting Sodium Chloride () 10 - 40 ml IV UD PRN PRN Reason: Open End PICC Flush Last Admin: 08/13/19 04:25 Dose: 10 ml Documented by: Sodium Chloride (0.9% Nacl (Sterile) Posiflush) 10 - 40 ml IV UD PRN PRN Reason: Port access or dressing change Sodium Hypochlorite (Dakins Solution 0.25% (1/2 Strength)) 1 applic TOPICAL BID [facility]; Protocol Last Admin: 08/13/19 10:45 Dose: Not Given Documented by: Trazodone HCl (Desyrel) 25 mg PO QHS [facility] Last Admin: 08/12/19 23:16 Dose: 25 mg Documented by: Venlafaxine HCl (Effexor Xr) 150 mg PO DAILY [facility] Last Admin: 08/13/19 12:53 Dose: 150 mg Documented by: - Past Medical History Past Medical History (Chronic Problems): Chronic Problems Gout (Chronic) Benzodiazepine dependence (Chronic) Neuropathic pain (Chronic) Insomnia (Chronic) Bipolar disorder (Chronic) Hypothyroidism (Chronic) Pressure ulcer of sacral region, stage 4 (Chronic) infected necrotizing right buttock and right sacral pressure sore, Stage IV Hypertension (Chronic) Hyperlipidemia (Chronic) Chronic back pain (Chronic) Impaired mobility (Chronic) Severe obesity (BMI 35.0-35.9 with comorbidity) (Chronic) CKD (chronic kidney disease), stage III (Chronic) Diabetes mellitus, type II (Chronic) Anxiety and depression (Chronic) RLS (restless legs syndrome) (Chronic) Nicotine vapor product user (Chronic) Former tobacco use (Chronic) Macrocytic anemia (Chronic) Intractable low back pain (Chronic) - Past Surgical History Surgical History: appendectomy, cholecystectomy, hysterectomy, - - Lumbar spinal surgery with hardware, at least 4 previous back surgeries. - Social History Smoking Status: Former smoker Alcohol: None Drugs: None - Family History Maternal History Items: - - Patient denies any market maternal or paternal family history including heart disease, diabetes, cancer. Paternal History Items: - - Patient denies any market maternal or paternal family history including heart disease, diabetes, cancer. Review of Systems Constitutional: Denies: Chills, Fever, Weight Change HEENT: Denies: Head Aches, Sinus Congestion, Sinus Drainage Cardiovascular: Denies: Chest Pain, Palpitations Respiratory: Denies: Cough, Shortness of breath at rest, Sputum production Gastrointestinal: Denies: Abdominal Pain, Nausea, Vomiting Genitourinary: Denies: Dysuria Musculoskeletal: Denies: Joint Pain, Joint Tenderness Skin: Denies: Rash, Wounds Neurological: Denies: Numbness, Tingling, Focal weakness Psychiatric: Denies: Anxiety, Depression, Homicidal Ideations, Suicidal Ideations Hematologic/ Lymphatic: Denies: Easy Bruising, Easy Bleeding Patient Problems: Active and Suspected Problems ILIANA (acute kidney injury) (Acute) - Physical Exam Vitals/I&O's: Vital Signs Temp Pulse Resp BP Pulse Ox 98.7 F 106 H 18 111/62 96 08/13/19 17:29 08/13/19 17:29 08/13/19 17:29 08/13/19 17:29 08/13/19 17:29 Oxygen Flow Rate (L/min) 6 Oxygen Delivery Method Nasal Cannula Weight: 98.9 kg Body Mass Index (BMI) 36.9 Finger Stick Blood Glucose 134 Intake and Output for Last 24 Hours 08/11/19 08/12/19 08/13/19 23:59 23:59 23:59 Intake Total 840 / 840 820 / 820 2385.42 / 2385.42 Output Total 550 / 550 175 / 175 450 / 450 Balance 290 / 290 645 / 645 1935.42 / 1935.42 General: Alert, Oriented x3, Cooperative HEENT: Atraumatic, PERRLA, EOMI, Normocephalic Neck: Supple, No JVD, Negative Carotid Bruits Lungs: Clear to auscultation, Normal air movement Cardiovascular: Regular rate, No murmurs Abdomen: Bowel Sounds Present, Soft, Non Tender Extremities: No edema, Capillary Refill Less than 3 Seconds Skin: No rashes, No breakdown Musculoskeletal: No Tenderness to Palpation of Joints or Extremities Neurological: Cranial nerves II-XII grossly intact Psych/Mental Status: Normal Affect, Appropriate Microbiology Past 72 Hours 08/11/19 13:21 Bone - Buttock Gram Stain - Final 08/11/19 13:21 Bone - Buttock Wound Culture - Preliminary Meth. resistant Staph. aureus 08/11/19 13:15 Tissue - Buttock Gram Stain - Final 08/11/19 13:15 Tissue - Buttock Wound Culture - Preliminary Staphylococcus aureus Presumptive C albicans 08/09/19 Unknown Wound - Buttock Gram Stain - Final 08/09/19 Unknown Wound - Buttock Wound Culture - Final Meth. resistant Staph. aureus Gram positive arik 08/11/19 06:40 Blood Culture (Wb) - Left Wrist Blood Culture - Preliminary No growth in 48 hours. 08/11/19 06:55 Blood Culture (Wb) - Left Wrist Blood Culture - Preliminary No growth in 48 hours. 08/09/19 06:35 Blood Culture (Wb) - Pic Blood Culture - Preliminary No growth in 48 hours. 08/10/19 04:20 Urine Catheter - Martinez Urine Culture - Final Presumptive C albicans Laboratory Results 08/12/19 07:56: Diff Path Review Reviewed 08/12/19 17:39: POC Glucose 139 H 08/12/19 23:23: POC Glucose 102 08/13/19 03:58: WBC 33.8 H*, RBC 3.08 L, Hgb 9.7 L, Hct 31.7 L, MCV 102.9 H, MCH 31.5, MCHC 30.6 L, RDW Std Deviation 62.1 H, RDW Coeff of Harper 16.6 H, Plt Count 598 H, MPV 9.3, Differential Comment SCANNED, Diff Path Review Reviewed 08/13/19 03:58: Sodium 148 H, Potassium 3.6, Chloride 123 H, Carbon Dioxide 19.0 L, Anion Gap 6, BUN 24 H, Creatinine 2.42 H, Estim Creat Clear Calc 18.82, Est GFR (MDRD) Af Amer 26 L, Est GFR (MDRD) Non-Af 21 L, BUN/Creatinine Ratio 9.9 L, Glucose 107 H, Calcium 8.2 L 08/13/19 03:58: Lactate Dehydrogenase 565 H, Total Protein 5.1 L, Globulin 3.9, Albumin/Globulin Ratio 0.3 L 08/13/19 05:38: POC Glucose 115 H 08/13/19 12:55: POC Glucose 134 H 08/13/19 17:35: POC Glucose 107 Current Medications Acetaminophen (Tylenol) 650 mg PO Q6H PRN PRN PRN Reason: Pain Score 1-3/Temp > 100.7 F Acetaminophen (Tylenol) 650 mg RECTAL Q4H PRN PRN PRN Reason: Pain Score 1-3/Temp > 100.7 F Albuterol Sulfate (Ventolin Aerosols) 2.5 mg INHALATION Q2H PRN PRN PRN Reason: SOB/Wheezing Allopurinol (Zyloprim) 300 mg PO DAILY [facility] Last Admin: 08/13/19 12:53 Dose: 300 mg Documented by: Aspirin (Ecotrin) 81 mg PO QHS [facility] Last Admin: 08/12/19 23:16 Dose: 81 mg Documented by: Atorvastatin Calcium (Lipitor) 80 mg PO QHS [facility] Last Admin: 08/12/19 23:15 Dose: 80 mg Documented by: Benztropine Mesylate (Cogentin) 0.5 mg PO QHS [facility] Last Admin: 08/12/19 23:15 Dose: 0.5 mg Documented by: Buspirone HCl (Buspar) 10 mg PO BID [facility] Last Admin: 08/13/19 11:01 Dose: 10 mg Documented by: Cholecalciferol (Vitamin D) 5,000 unit PO DAILY [facility] Last Admin: 08/13/19 11:00 Dose: 5,000 unit Documented by: Cyanocobalamin (Vitamin B12) 1,000 mcg PO DAILY [facility] Last Admin: 08/13/19 11:01 Dose: 1,000 mcg Documented by: Glucagon () 1 mg IM .X1 PRN PRN Reason: Hypoglycemia Haloperidol Lactate (Haldol) 1 - 2 mg IV Q4H PRN PRN PRN Reason: SEVERE AGITATION Last Admin: 08/13/19 05:38 Dose: 1 mg Documented by: Vancomycin IV Pharmacy to Dose (1 ea/ Sodium Chloride) 500 mls @ 250 mls/hr IV X1 PRN; Protocol PRN Reason: Rx to Dose Dextrose (Dextrose 10%-Water) 250 mls @ 999 mls/hr IV .Q16M PRN; Protocol PRN Reason: HYPOGLYCEMIA Sodium Chloride () 250 mls @ 15 mls/hr IV .[id number] PRN PRN Reason: Saline Flush Sodium Chloride () 250 mls @ 15 mls/hr IV .[id number] PRN PRN Reason: Additional IVPB Infusion Cefepime HCl 2 gm/ Sodium (Chloride) 100 mls @ 200 mls/hr IV Q24 [facility] Last Infusion: 08/13/19 13:49 Dose: Infused Documented by: Insulin Human Lispro (Humalog Kwikpen (Bkc)) 0 unit SC Q6 [facility]; Protocol Last Admin: 08/13/19 17:36 Dose: Not Given Documented by: Levothyroxine Sodium (Synthroid) 75 mcg PO DAILY@0600 [facility] Last Admin: 08/13/19 05:30 Dose: 75 mcg Documented by: Metoprolol Tartrate (Lopressor (Beta Armani)) 25 mg PO BID [facility] Last Admin: 08/13/19 11:01 Dose: 25 mg Documented by: Metronidazole (Flagyl) 500 mg PO TIDCM [facility] Last Admin: 08/13/19 17:41 Dose: 500 mg Documented by: Morphine Sulfate () 1 - 2 mg IV Q3H PRN PRN PRN Reason: Pain Score 1-1010 Last Admin: 08/13/19 04:25 Dose: 2 mg Documented by: Nutritional Formula ([place] - Casey Flavor) 1 packet PO BIDCM [facility] Last Admin: 08/13/19 17:41 Dose: 1 packet Documented by: Olanzapine (Zyprexa) 20 mg PO DAILY [facility] Last Admin: 08/13/19 12:53 Dose: 20 mg Documented by: Prochlorperazine Edisylate (Compazine Iv) 5 mg IV Q4H PRN PRN PRN Reason: Breakthrough Nausea/Vomiting Last Admin: 08/10/19 10:33 Dose: 5 mg Documented by: Promethazine HCl (Phenergan Suppository) 12.5 mg RECTAL Q6H PRN PRN PRN Reason: Breakthrough Nausea/Vomiting Sodium Chloride () 10 - 40 ml IV UD PRN PRN Reason: Open End PICC Flush Last Admin: 08/13/19 04:25 Dose: 10 ml Documented by: Sodium Chloride (0.9% Nacl (Sterile) Posiflush) 10 - 40 ml IV UD PRN PRN Reason: Port access or dressing change Sodium Hypochlorite (Dakins Solution 0.25% (1/2 Strength)) 1 applic TOPICAL BID [facility]; Protocol Last Admin: 08/13/19 10:45 Dose: Not Given Documented by: Trazodone HCl (Desyrel) 25 mg PO QHS [facility] Last Admin: 08/12/19 23:16 Dose: 25 mg Documented by: Venlafaxine HCl (Effexor Xr) 150 mg PO DAILY [facility] Last Admin: 08/13/19 12:53 Dose: 150 mg Documented by: Assessment/Plan All Active Problems ILIANA (acute kidney injury) (Acute) Fecal soiling due to fecal incontinence (Acute) ILIANA. normal baseline. now worsening. patient has severe sepsis likely related to sacral decubitus ulcer. renal US without hydronephrosis UA is dirty but she has a martinez and urine looks muddy Did receive vanco with somewhat higher trough levels no contrast studies BP is on lower side, med list reviewed. on low dose metoprolol ILIANA is likely ATN due to vanco, sepsis. 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
[2019-08-13] MEDS: traZODone 50 MG Tablet 25 MG PO (22:16)
[2019-08-13] MEDS: Atorvastatin Calcium 80 MG Tablet PO (22:16)
[2019-08-13] MEDS: Aspirin E.C. 81 MG Tablet PO (22:16)
[2019-08-13] MEDS: Benztropine 2 MG Tablet 0.5 MG PO (22:16)
[2019-08-13 23:06] LABS: Bedside Glucose 113 mg/dL (70-110)
[2019-08-14] VITALS (19 sets, daily range): BP systolic 106–135; BP diastolic 58–82; PULSE 90–103; RESP 16–18; TEMP 36.2–36.8; O2SAT 90–95
[2019-08-14] MEDS: Levothyroxine 75 MCG Tablet PO (05:51)
[2019-08-14 06:16] LABS: Bedside Glucose 111 mg/dL (70-110)
[2019-08-14 06:33] LABS: Hematocrit 33.6 % (37-47); Mean Corp Hgb Conc 29.8 g/dL (32-36); Mean Corpuscular Hgb 31.3 pg (27.0-32.0); Mean Corpuscular Volume 105.3 fL (81-99); POSITIVE COUNT YES; Platelet Count 665 K/mm3 (150-450); RBC Distribution Width CV 16.8 % (11.6-14.6); RBC Distribution Width SD 64.2 fl (35.1-43.9); Red Blood Count 3.19 M/mm3 (4.2-5.4)
[2019-08-14 06:39] LABS: Scan Indicated on CBC? Y/N YES- FLAGS NOTED
[2019-08-14 06:40] LABS: White Blood Count 34.1 K/mm3 (4.4-11.0)
[2019-08-14 06:59] LABS: Differential Comment SCANNED
[2019-08-14 07:01] LABS: Anion Gap 7 (5-15); BUN 33 mg/dL (7-18); Calcium,Total 8.4 mg/dL (8.5-10.1); Chloride 126 mmol/L (98-107); EST Glomerular Filtration Rate 17 mL/min (>60); Est Glom Filt Rate - Afr Amer 20 mL/min (>60); Estimated Creatinine Clearance 15.18 ml/min; Glucose 120 mg/dL (74-106); Potassium 3.6 mmol/L (3.5-5.1); Sodium Level 151 mmol/L (136-145)
[2019-08-14 07:04] LABS: Vancomycin, Random Level 19.9 ug/mL (0.0-15.0)
--- NOTE | 2019-08-14 08:12 | PCM.RX.CS ---
Consult Pharmacy has been consulted to manage selected antiobiotic: Vancomycin Type of Consult: Follow-up Suspected Infection: Sepsis Prior Doses of Antibiotics Received/Current Regimen: Doses have been held Labs: Sodium 151 mmol/L (136-145) H 08/14/19 06:15 Potassium 3.6 mmol/L (3.5-5.1) 08/14/19 06:15 Chloride 126 mmol/L (98-107) H 08/14/19 06:15 Carbon Dioxide 18.0 mmol/L (21.0-32.0) L 08/14/19 06:15 Anion Gap 7 (5-15) 08/14/19 06:15 BUN 33 mg/dL (7-18) H 08/14/19 06:15 Creatinine 3.00 mg/dL (0.55-1.02) H 08/14/19 06:15 Est GFR (MDRD) Af Amer 20 mL/min (>60) L 08/14/19 06:15 Est GFR (MDRD) Non-Af 17 mL/min (>60) L 08/14/19 06:15 BUN/Creatinine Ratio 11.0 RATIO (10-20) 08/14/19 06:15 Glucose 120 mg/dL (74-106) H 08/14/19 06:15 Vancomycin Trough 27.6 ug/mL (5.0-15.0) H 08/11/19 06:55 Random Vancomycin 19.9 ug/mL (0.0-15.0) H 08/14/19 06:15 Microbiology: Microbiology 08/11/19 13:15 Tissue - Buttock Gram Stain - Final 08/11/19 13:15 Tissue - Buttock Wound Culture - Final Meth. resistant Staph. aureus Presumptive C albicans 08/13/19 23:00 Stool C. difficile GDH Antigen & Toxins - Preliminary Toxigenic C. difficile 08/13/19 23:00 Stool C. difficile DNA Amplification - Preliminary 08/11/19 13:21 Bone - Buttock Gram Stain - Final 08/11/19 13:21 Bone - Buttock Wound Culture - Preliminary Meth. resistant Staph. aureus 08/09/19 Unknown Wound - Buttock Gram Stain - Final 08/09/19 Unknown Wound - Buttock Wound Culture - Final Meth. resistant Staph. aureus Gram positive arik 08/11/19 06:40 Blood Culture (Wb) - Left Wrist Blood Culture - Preliminary No growth in 48 hours. 08/11/19 06:55 Blood Culture (Wb) - Left Wrist Blood Culture - Preliminary No growth in 48 hours. 08/09/19 06:35 Blood Culture (Wb) - Pic Blood Culture - Preliminary No growth in 48 hours. 08/10/19 04:20 Urine Catheter - Ahmadi Urine Culture - Final Presumptive C albicans Weight used for dosin kg Goal Trough: 15-20 mcg/mL Pharmacy Plan for Drug Dosing: Pt's random level resulted at 19.9 on 08/14/2019 at 0655. Pt's last few days/doses have been held due to an elevated trough and increasing SrCr. Will continue to hold Vancomycin dose even though pt is currently in a therapeutic range. Pt's SrCr has increased from 2.42 to 3.00 over the past 24 hours. Pharmacy will continue to monitor SrCr and Vancomycin levels. Pharmacy Service will continue to monitor and adjust dosing as required. Follow-Up Labs: Trough Vancomycin - random level 08/15/2019 at 0700
[2019-08-14] MEDS: Metoprolol Tartrate 25 MG Tablet PO ×2 (09:43→21:35)
[2019-08-14] MEDS: Cyanocobalamin 500 MCG Tablet 1000 MCG PO (09:43)
[2019-08-14] MEDS: OLANZapine 10 MG Tablet 20 MG PO (09:44)
[2019-08-14] MEDS: Allopurinol 300 MG Tablet PO (09:44)
[2019-08-14] MEDS: busPIRone 5 MG Tablet 10 MG PO ×2 (09:44→21:35)
[2019-08-14] MEDS: Venlafaxine XR 150 MG Capsule PO (09:44)
[2019-08-14] MEDS: metroNIDAZOLE 500 MG Tablet PO ×3 (09:44→17:06)
[2019-08-14] MEDS: Morphine 2 MG/ML Syringe IV ×2 (09:55→21:44)
[2019-08-14] MEDS: 0.9% Saline Lock 10 ML Syringe IV ×2 (09:56→21:45)
--- NOTE | 2019-08-14 10:12 | PN.ID_ITS ---
Patient Problems: Active and Suspected Problems ILIANA (acute kidney injury) (Acute) Subjective: Feeling ok, denies abd pain, no diarrhea this AM or overnight per nursing. - Physical Exam Vitals/I&O's: Vital Signs Temp Pulse Resp BP Pulse Ox 97.6 F L 100 18 117/59 L 92 08/14/19 10:07 08/14/19 10:07 08/14/19 10:07 08/14/19 10:07 08/14/19 10:07 Oxygen Flow Rate (L/min) 6 Oxygen Delivery Method Nasal Cannula Weight: 96.4 kg Body Mass Index (BMI) 36.9 Finger Stick Blood Glucose 134 Intake and Output for Last 24 Hours 08/12/19 08/13/19 08/14/19 23:59 23:59 23:59 Intake Total 820 / 820 2485.42 / 2485.42 50 / 50 Output Total 175 / 175 575 / 575 100 / 100 Balance 645 / 645 1910.42 / 1910.42 -50 / -50 General: Cooperative, No apparent distress Lungs: Diminished Cardiovascular: Regular rate, Regular Rhythm Abdomen: Soft, Non Tender, Non-Distended Skin: Ulcer/ Wound - reviewed photo Microbiology Past 72 Hours 08/11/19 13:21 Bone - Buttock Gram Stain - Final 08/11/19 13:21 Bone - Buttock Wound Culture - Preliminary Meth. resistant Staph. aureus 08/11/19 13:21 Bone - Buttock Anaerobic Culture - Preliminary Checking for anaerobes, further studies to follow. 08/11/19 13:15 Tissue - Buttock Gram Stain - Final 08/11/19 13:15 Tissue - Buttock Wound Culture - Final Meth. resistant Staph. aureus Presumptive C albicans 08/11/19 13:15 Tissue - Buttock Anaerobic Culture - Final No anaerobic bacteria isolated. 08/13/19 23:00 Stool C. difficile GDH Antigen & Toxins - Preliminary Toxigenic C. difficile 08/13/19 23:00 Stool C. difficile DNA Amplification - Preliminary 08/09/19 Unknown Wound - Buttock Gram Stain - Final 08/09/19 Unknown Wound - Buttock Wound Culture - Final Meth. resistant Staph. aureus Gram positive arik 08/11/19 06:40 Blood Culture (Wb) - Left Wrist Blood Culture - Preliminary No growth in 48 hours. 08/11/19 06:55 Blood Culture (Wb) - Left Wrist Blood Culture - Preliminary No growth in 48 hours. 08/09/19 06:35 Blood Culture (Wb) - Pic Blood Culture - Preliminary No growth in 48 hours. 08/10/19 04:20 Urine Catheter - Ahmadi Urine Culture - Final Presumptive C albicans Laboratory Results 08/12/19 07:56: Diff Path Review Reviewed 08/13/19 03:58: Diff Path Review Reviewed 08/13/19 12:55: POC Glucose 134 H 08/13/19 17:35: POC Glucose 107 08/13/19 22:24: POC Glucose 113 H 08/14/19 05:56: POC Glucose 111 H 08/14/19 06:15: Random Vancomycin 19.9 H 08/14/19 06:15: WBC 34.1 H*, RBC 3.19 L, Hgb 10.0 L, Hct 33.6 L, MCV 105.3 H, MCH 31.3, MCHC 29.8 L, RDW Std Deviation 64.2 H, RDW Coeff of Harper 16.8 H, Plt Count 665 H, MPV 9.0, Differential Comment SCANNED, Diff Path Review May foll 08/14/19 06:15: Sodium 151 H, Potassium 3.6, Chloride 126 H, Carbon Dioxide 18.0 L, Anion Gap 7, BUN 33 H, Creatinine 3.00 H, Estim Creat Clear Calc 15.18, Est GFR (MDRD) Af Amer 20 L, Est GFR (MDRD) Non-Af 17 L, BUN/Creatinine Ratio 11.0, Glucose 120 H, Calcium 8.4 L Current Medications Acetaminophen (Tylenol) 650 mg PO Q6H PRN PRN PRN Reason: Pain Score 1-3/Temp > 100.7 F Acetaminophen (Tylenol) 650 mg RECTAL Q4H PRN PRN PRN Reason: Pain Score 1-3/Temp > 100.7 F Albuterol Sulfate (Ventolin Aerosols) 2.5 mg INHALATION Q2H PRN PRN PRN Reason: SOB/Wheezing Allopurinol (Zyloprim) 300 mg PO DAILY [facility] Last Admin: 08/14/19 09:44 Dose: 300 mg Documented by: Aspirin (Ecotrin) 81 mg PO QHS [facility] Last Admin: 08/13/19 22:16 Dose: 81 mg Documented by: Atorvastatin Calcium (Lipitor) 80 mg PO QHS [facility] Last Admin: 08/13/19 22:16 Dose: 80 mg Documented by: Benztropine Mesylate (Cogentin) 0.5 mg PO QHS [facility] Last Admin: 08/13/19 22:16 Dose: 0.5 mg Documented by: Buspirone HCl (Buspar) 10 mg PO BID [facility] Last Admin: 08/14/19 09:44 Dose: 10 mg Documented by: Cholecalciferol (Vitamin D) 5,000 unit PO DAILY [facility] Last Admin: 08/14/19 09:44 Dose: 5,000 unit Documented by: Cyanocobalamin (Vitamin B12) 1,000 mcg PO DAILY [facility] Last Admin: 08/14/19 09:43 Dose: 1,000 mcg Documented by: Glucagon () 1 mg IM .X1 PRN PRN Reason: Hypoglycemia Haloperidol Lactate (Haldol) 1 - 2 mg IV Q4H PRN PRN PRN Reason: SEVERE AGITATION Last Admin: 08/13/19 05:38 Dose: 1 mg Documented by: Vancomycin IV Pharmacy to Dose (1 ea/ Sodium Chloride) 500 mls @ 250 mls/hr IV X1 PRN; Protocol PRN Reason: Rx to Dose Dextrose (Dextrose 10%-Water) 250 mls @ 999 mls/hr IV .Q16M PRN; Protocol PRN Reason: HYPOGLYCEMIA Sodium Chloride () 250 mls @ 15 mls/hr IV .[id number] PRN PRN Reason: Saline Flush Sodium Chloride () 250 mls @ 15 mls/hr IV .[id number] PRN PRN Reason: Additional IVPB Infusion Cefepime HCl 2 gm/ Sodium (Chloride) 100 mls @ 200 mls/hr IV Q24 [facility] Last Admin: 08/14/19 09:44 Dose: 200 mls/hr Documented by: Insulin Human Lispro (Humalog Kwikpen (Bkc)) 0 unit SC Q6 [facility]; Protocol Last Admin: 08/14/19 05:58 Dose: Not Given Documented by: Levothyroxine Sodium (Synthroid) 75 mcg PO DAILY@0600 [facility] Last Admin: 08/14/19 05:51 Dose: 75 mcg Documented by: Metoprolol Tartrate (Lopressor (Beta Armani)) 25 mg PO BID [facility] Last Admin: 08/14/19 09:43 Dose: 25 mg Documented by: Metronidazole (Flagyl) 500 mg PO TIDCM [facility] Last Admin: 08/14/19 09:44 Dose: 500 mg Documented by: Morphine Sulfate () 1 - 2 mg IV Q3H PRN PRN PRN Reason: Pain Score 1-10/10 Last Admin: 08/14/19 09:55 Dose: 2 mg Documented by: Nutritional Formula ([place] - [place] Flavor) 1 packet PO BIDCM [facility] Last Admin: 08/14/19 09:42 Dose: 1 packet Documented by: Olanzapine (Zyprexa) 20 mg PO DAILY [facility] Last Admin: 08/14/19 09:44 Dose: 20 mg Documented by: Prochlorperazine Edisylate (Compazine Iv) 5 mg IV Q4H PRN PRN PRN Reason: Breakthrough Nausea/Vomiting Last Admin: 08/10/19 10:33 Dose: 5 mg Documented by: Promethazine HCl (Phenergan Suppository) 12.5 mg RECTAL Q6H PRN PRN PRN Reason: Breakthrough Nausea/Vomiting Sodium Chloride () 10 - 40 ml IV UD PRN PRN Reason: Open End PICC Flush Last Admin: 08/14/19 09:56 Dose: 10 ml Documented by: Sodium Chloride (0.9% Nacl (Sterile) Posiflush) 10 - 40 ml IV UD PRN PRN Reason: Port access or dressing change Sodium Hypochlorite (Dakins Solution 0.25% (1/2 Strength)) 1 applic TOPICAL BID [facility]; Protocol Last Admin: 08/14/19 09:45 Dose: Not Given Documented by: Trazodone HCl (Desyrel) 25 mg PO QHS [facility] Last Admin: 08/13/19 22:16 Dose: 25 mg Documented by: Venlafaxine HCl (Effexor Xr) 150 mg PO DAILY [facility] Last Admin: 08/14/19 09:44 Dose: 150 mg Documented by: Medical Necessity - Tobacco Use Smoking Status: Former smoker Tobacco Use: Vapor Route of nutrition/ use of supplements: [] Nutritional Intake: [] IV Site: [] Ahmadi Catheter: [] - Assessment/Plan Antibiotics: [] Assessment/Plan: [] 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 Prior cxs with corynebacteria, ecoli, serratia, anaerobes. Recent ucx with VRE and heidi. Taken to OR [address] Kaiser, bone cx sent. On vanc/cefepime, added flagyl 2/. Diverting ostomy grazyna nned. Not having much diarrhea, and cdiff testing did not show active toxin. Does still have high wbc, but slightly improved from earlier this week. No abd pain, no blood in stool, no fever. Will stop po vanc at this time due to low suspicion for active infection. Will follow
--- NOTE | 2019-08-14 11:17 | PN_ITS ---
Progress Note Patient now has C. difficile colitis. I will hold on diverting colostomy until this is resolved. Tim Reyna MD Pager: [facility] [address] [place] [address], [address] [place] [address] Office: STROKE Vital Signs/Narrative: Vital Signs Temp Pulse Resp BP Pulse Ox 08/14/19 10:07 97.6 F L 100 18 117/59 L 92 08/14/19 09:43 95 08/14/19 08:37 95 08/14/19 08:10 97.6 F L 100 18 119/75 93
--- NOTE | 2019-08-14 11:17 | PCM.PN.BLA ---
Progress Note Patient now has C. difficile colitis. I will hold on diverting colostomy until this is resolved. Tim Reyna MD Pager: [facility] [address] [place] [address], [address] [place] [address] Office: STROKE Vital Signs/Narrative: Vital Signs Temp Pulse Resp BP Pulse Ox 08/14/19 10:07 97.6 F L 100 18 117/59 L 92 08/14/19 09:43 95 08/14/19 08:37 95 08/14/19 08:10 97.6 F L 100 18 119/75 93
[2019-08-14 11:47] LABS: Pathologist Review Reviewed
[2019-08-14 11:55] LABS: Bedside Glucose 106 mg/dL (70-110)
--- NOTE | 2019-08-14 13:05 | PCM.PN.PUL ---
Patient Problems: Active and Suspected Problems ILIANA (acute kidney injury) (Acute) Subjective: Patient remains significantly confused and is unable to provide any additional information. Patient did test positive for C. difficile overnight, so plans are to hold on diverting colostomy. Patient continues to require 6 L to maintain saturations at rest. Patient did not have a thoracentesis yesterday secondary to minimal effusion. - Physical Exam Vitals/I&O's: Vital Signs Temp Pulse Resp BP Pulse Ox 36.4 C L 95 18 120/69 91 08/14/19 11:45 08/14/19 11:45 08/14/19 11:45 08/14/19 11:45 08/14/19 11:45 Oxygen Flow Rate (L/min) 6 Oxygen Delivery Method Nasal Cannula Weight: 96.4 kg Body Mass Index (BMI) 36.9 Finger Stick Blood Glucose 134 Intake and Output for Last 24 Hours 08/12/19 08/13/19 08/14/19 23:59 23:59 23:59 Intake Total 820 / 820 2485.42 / 2485.42 200 / 200 Output Total 175 / 175 575 / 575 175 / 175 Balance 645 / 645 1910.42 / 1910.42 25 / 25 General: Alert, No apparent distress, Confused, Disoriented, - - No conversational dyspnea. Obese. HEENT: Atraumatic, PERRLA, EOMI, Normocephalic, - Oral: Moist Mucosa, No Gingival or Mucosal Lesions/ Ulcerations Neck: Supple, No JVD, No Nodes, Trachea Midline Lungs: No rhonchi, No wheeze, No rales, Diminished Cardiovascular: Regular rate, Regular Rhythm, Normal S1, Normal S2, No murmurs, No rub noted, No Gallop Abdomen: Bowel Sounds Present, Soft, Non Tender, Distended - Slightly, Obese Extremities: No clubbing, No cyanosis, Edema Skin: - - No change compared to previous Musculoskeletal: No Tenderness to Palpation of Joints or Extremities Lymphatic: No Cervical, Supraclavicular, or Inguinal Adenopathy Neurological: Cranial nerves II-XII grossly intact, Neuro grossly intact, Motor Exam 5/5 strength throughout Psych/Mental Status: Anxious, Impulsive, Restless Microbiology Past 72 Hours 08/11/19 13:21 Bone - Buttock Gram Stain - Final 08/11/19 13:21 Bone - Buttock Wound Culture - Preliminary Meth. resistant Staph. aureus Gram positive arik 08/11/19 13:21 Bone - Buttock Anaerobic Culture - Preliminary Checking for anaerobes, further studies to follow. 08/11/19 13:15 Tissue - Buttock Gram Stain - Final 08/11/19 13:15 Tissue - Buttock Wound Culture - Final Meth. resistant Staph. aureus Presumptive C albicans 08/11/19 13:15 Tissue - Buttock Anaerobic Culture - Final No anaerobic bacteria isolated. 08/13/19 23:00 Stool C. difficile GDH Antigen & Toxins - Preliminary Toxigenic C. difficile 08/13/19 23:00 Stool C. difficile DNA Amplification - Preliminary 08/09/19 Unknown Wound - Buttock Gram Stain - Final 08/09/19 Unknown Wound - Buttock Wound Culture - Final Meth. resistant Staph. aureus Gram positive arik 08/11/19 06:40 Blood Culture (Wb) - Left Wrist Blood Culture - Preliminary No growth in 48 hours. 08/11/19 06:55 Blood Culture (Wb) - Left Wrist Blood Culture - Preliminary No growth in 48 hours. 08/09/19 06:35 Blood Culture (Wb) - Pic Blood Culture - Preliminary No growth in 48 hours. 08/10/19 04:20 Urine Catheter - Ahmadi Urine Culture - Final Presumptive C albicans Laboratory Results 08/12/19 07:56: Diff Path Review Reviewed 08/13/19 03:58: Diff Path Review Reviewed 08/13/19 12:55: POC Glucose 134 H 08/13/19 17:35: POC Glucose 107 08/13/19 22:24: POC Glucose 113 H 08/14/19 05:56: POC Glucose 111 H 08/14/19 06:15: Random Vancomycin 19.9 H 08/14/19 06:15: WBC 34.1 H*, RBC 3.19 L, Hgb 10.0 L, Hct 33.6 L, MCV 105.3 H, MCH 31.3, MCHC 29.8 L, RDW Std Deviation 64.2 H, RDW Coeff of Harper 16.8 H, Plt Count 665 H, MPV 9.0, Differential Comment SCANNED, Diff Path Review Reviewed 08/14/19 06:15: Sodium 151 H, Potassium 3.6, Chloride 126 H, Carbon Dioxide 18.0 L, Anion Gap 7, BUN 33 H, Creatinine 3.00 H, Estim Creat Clear Calc 15.18, Est GFR (MDRD) Af Amer 20 L, Est GFR (MDRD) Non-Af 17 L, BUN/Creatinine Ratio 11.0, Glucose 120 H, Calcium 8.4 L 08/14/19 11:38: POC Glucose 106 Current Medications Acetaminophen (Tylenol) 650 mg PO Q6H PRN PRN PRN Reason: Pain Score 1-3/Temp > 100.7 F Acetaminophen (Tylenol) 650 mg RECTAL Q4H PRN PRN PRN Reason: Pain Score 1-3/Temp > 100.7 F Albuterol Sulfate (Ventolin Aerosols) 2.5 mg INHALATION Q2H PRN PRN PRN Reason: SOB/Wheezing Allopurinol (Zyloprim) 300 mg PO DAILY [facility] Last Admin: 08/14/19 09:44 Dose: 300 mg Documented by: Aspirin (Ecotrin) 81 mg PO QHS [facility] Last Admin: 08/13/19 22:16 Dose: 81 mg Documented by: Atorvastatin Calcium (Lipitor) 80 mg PO QHS [facility] Last Admin: 08/13/19 22:16 Dose: 80 mg Documented by: Benztropine Mesylate (Cogentin) 0.5 mg PO QHS [facility] Last Admin: 08/13/19 22:16 Dose: 0.5 mg Documented by: Buspirone HCl (Buspar) 10 mg PO BID [facility] Last Admin: 08/14/19 09:44 Dose: 10 mg Documented by: Cholecalciferol (Vitamin D) 5,000 unit PO DAILY [facility] Last Admin: 08/14/19 09:44 Dose: 5,000 unit Documented by: Cyanocobalamin (Vitamin B12) 1,000 mcg PO DAILY [facility] Last Admin: 08/14/19 09:43 Dose: 1,000 mcg Documented by: Glucagon () 1 mg IM .X1 PRN PRN Reason: Hypoglycemia Haloperidol Lactate (Haldol) 1 - 2 mg IV Q4H PRN PRN PRN Reason: SEVERE AGITATION Last Admin: 08/13/19 05:38 Dose: 1 mg Documented by: Vancomycin IV Pharmacy to Dose (1 ea/ Sodium Chloride) 500 mls @ 250 mls/hr IV X1 PRN; Protocol PRN Reason: Rx to Dose Dextrose (Dextrose 10%-Water) 250 mls @ 999 mls/hr IV .Q16M PRN; Protocol PRN Reason: HYPOGLYCEMIA Sodium Chloride () 250 mls @ 15 mls/hr IV .[id number] PRN PRN Reason: Saline Flush Sodium Chloride () 250 mls @ 15 mls/hr IV .[id number] PRN PRN Reason: Additional IVPB Infusion Cefepime HCl 2 gm/ Sodium (Chloride) 100 mls @ 200 mls/hr IV Q24 [facility] Last Infusion: 08/14/19 10:30 Dose: Infused Documented by: Insulin Human Lispro (Humalog Kwikpen (Bkc)) 0 unit SC Q6 [facility]; Protocol Last Admin: 08/14/19 11:39 Dose: Not Given Documented by: Levothyroxine Sodium (Synthroid) 75 mcg PO DAILY@0600 [facility] Last Admin: 08/14/19 05:51 Dose: 75 mcg Documented by: Metoprolol Tartrate (Lopressor (Beta Armani)) 25 mg PO BID [facility] Last Admin: 08/14/19 09:43 Dose: 25 mg Documented by: Metronidazole (Flagyl) 500 mg PO TIDCM [facility] Last Admin: 08/14/19 11:39 Dose: 500 mg Documented by: Morphine Sulfate () 1 - 2 mg IV Q3H PRN PRN PRN Reason: Pain Score 1-10/10 Last Admin: 08/14/19 09:55 Dose: 2 mg Documented by: Nutritional Formula ([place] - [place] Flavor) 1 packet PO BIDCM [facility] Last Admin: 08/14/19 09:42 Dose: 1 packet Documented by: Olanzapine (Zyprexa) 20 mg PO DAILY [facility] Last Admin: 08/14/19 09:44 Dose: 20 mg Documented by: Prochlorperazine Edisylate (Compazine Iv) 5 mg IV Q4H PRN PRN PRN Reason: Breakthrough Nausea/Vomiting Last Admin: 08/10/19 10:33 Dose: 5 mg Documented by: Promethazine HCl (Phenergan Suppository) 12.5 mg RECTAL Q6H PRN PRN PRN Reason: Breakthrough Nausea/Vomiting Sodium Chloride () 10 - 40 ml IV UD PRN PRN Reason: Open End PICC Flush Last Admin: 08/14/19 09:56 Dose: 10 ml Documented by: Sodium Chloride (0.9% Nacl (Sterile) Posiflush) 10 - 40 ml IV UD PRN PRN Reason: Port access or dressing change Sodium Hypochlorite (Dakins Solution 0.25% (1/2 Strength)) 1 applic TOPICAL BID [facility]; Protocol Last Admin: 08/14/19 09:45 Dose: Not Given Documented by: Trazodone HCl (Desyrel) 25 mg PO QHS [facility] Last Admin: 08/13/19 22:16 Dose: 25 mg Documented by: Venlafaxine HCl (Effexor Xr) 150 mg PO DAILY [facility] Last Admin: 08/14/19 09:44 Dose: 150 mg Documented by: Medical Necessity - Tobacco Use Smoking Status: Former smoker Tobacco Use: Vapor Assessment/Plan All Active Problems ILIANA (acute kidney injury) (Acute) Fecal soiling due to fecal incontinence (Acute) RECOMMENDATIONS: 1. Continue antibiotics per infectious disease. Consider p.o. vancomycin 2. Continue plastic surgery evaluation. Continue local wound care. Possible diverting colostomy 3. Wean supplemental oxygen to maintain saturations at or above 90%. 4. Encourage incentive spirometer use. 5. Patient would benefit from free water administration 6. BiPAP breaks as tolerated. Continue with sleep IMPRESSIONS: 1. Severe sepsis Patient underwent surgical debridement by plastic surgery. Cultures are currently showing MRSA. Patient is on cefepime and vancomycin, which should cover reported organisms. Patient may require diverting colostomy. Labs for pleural effusion will be discontinued. Patient does have a new diagnosis of C. difficile, so may benefit from p.o. vancomycin, but defer to infectious disease. 2. Encephalopathy Patient continues to be confused. Unclear if this is true delirium versus baseline mentation. Continue baseline psychiatric medications. Antibiotics will be continued to address her infectious etiologies. 3. Acute on chronic hypercarbic respiratory failure?obstructive sleep apnea Repeat ABG showed good response to AVAPS therapy. This should be continued with sleep, sedation or as rescue during the day if necessary. Patient with significant non-anion gap hyperchloremic metabolic acidosis, which will increase respiratory demands. Patient would benefit from free water administration. This may improve with treatment of C. difficile. 4. History of bipolar disorder/diabetes mellitus/hypertension/hyperlipidemia/obesity/chronic kidney disease Complicates care, management, recovery and prognosis. Continue home medications as indicated. Code Visit Inpatient E&M: [id number] [facility] L3
--- NOTE | 2019-08-14 13:50 | PN_ITS ---
<Chandan Light - Last Filed: 08/14/19 13:50> Patient Problems: Active and Suspected Problems ILIANA (acute kidney injury) (Acute) Reason for Visit: nonhealing wound Subjective: Pt undergoing wound dressing change. Minimal pain. Pt very confused. No SOB. Denies fever/chills. Denies abd pain. Vitals/I&O's: Vital Signs Temp Pulse Resp BP Pulse Ox 97.5 F L 91 18 122/76 H 90 08/14/19 13:45 08/14/19 13:45 08/14/19 13:45 08/14/19 13:45 08/14/19 13:45 Oxygen Flow Rate (L/min) 6 Oxygen Delivery Method Nasal Cannula Weight: 212 lb 8.41 oz Body Mass Index (BMI) 36.9 Finger Stick Blood Glucose 134 Intake and Output for Last 24 Hours 08/12/19 08/13/19 08/14/19 23:59 23:59 23:59 Intake Total 820 / 820 2485.42 / 2485.42 200 / 200 Output Total 175 / 175 575 / 575 175 / 175 Balance 645 / 645 1910.42 / 1910.42 25 / 25 General: Alert, Confused, Lethargic HEENT: Atraumatic, PERRLA, EOMI, Normocephalic Neck: Supple, No JVD, Negative Carotid Bruits Lungs: Clear to auscultation, Normal air movement Cardiovascular: Regular rate, No murmurs Abdomen: Bowel Sounds Present, Soft, Non Tender Extremities: No edema, Capillary Refill Less than 3 Seconds Skin: No rashes, No breakdown Musculoskeletal: No Tenderness to Palpation of Joints or Extremities Neurological: Cranial nerves II-XII grossly intact Psych/Mental Status: Normal Affect, Appropriate, Alert and oriented to time, place, person, mood and affect Microbiology Past 72 Hours 08/11/19 13:21 Bone - Buttock Gram Stain - Final 08/11/19 13:21 Bone - Buttock Wound Culture - Preliminary Meth. resistant Staph. aureus Gram positive arik 08/11/19 13:21 Bone - Buttock Anaerobic Culture - Preliminary Checking for anaerobes, further studies to follow. 08/11/19 13:15 Tissue - Buttock Gram Stain - Final 08/11/19 13:15 Tissue - Buttock Wound Culture - Final Meth. resistant Staph. aureus Presumptive C albicans 08/11/19 13:15 Tissue - Buttock Anaerobic Culture - Final No anaerobic bacteria isolated. 08/13/19 23:00 Stool C. difficile GDH Antigen & Toxins - Preliminary Toxigenic C. difficile 08/13/19 23:00 Stool C. difficile DNA Amplification - Preliminary 08/09/19 Unknown Wound - Buttock Gram Stain - Final 08/09/19 Unknown Wound - Buttock Wound Culture - Final Meth. resistant Staph. aureus Gram positive arik 08/11/19 06:40 Blood Culture (Wb) - Left Wrist Blood Culture - Preliminary No growth in 48 hours. 08/11/19 06:55 Blood Culture (Wb) - Left Wrist Blood Culture - Preliminary No growth in 48 hours. 08/09/19 06:35 Blood Culture (Wb) - Pic Blood Culture - Preliminary No growth in 48 hours. 08/10/19 04:20 Urine Catheter - Ahmadi Urine Culture - Final Presumptive C albicans Laboratory Results 08/13/19 17:35: POC Glucose 107 08/13/19 22:24: POC Glucose 113 H 08/14/19 05:56: POC Glucose 111 H 08/14/19 06:15: Random Vancomycin 19.9 H 08/14/19 06:15: WBC 34.1 H*, RBC 3.19 L, Hgb 10.0 L, Hct 33.6 L, MCV 105.3 H, MCH 31.3, MCHC 29.8 L, RDW Std Deviation 64.2 H, RDW Coeff of Harper 16.8 H, Plt Count 665 H, MPV 9.0, Differential Comment SCANNED, Diff Path Review Reviewed 08/14/19 06:15: Sodium 151 H, Potassium 3.6, Chloride 126 H, Carbon Dioxide 18.0 L, Anion Gap 7, BUN 33 H, Creatinine 3.00 H, Estim Creat Clear Calc 15.18, Est GFR (MDRD) Af Amer 20 L, Est GFR (MDRD) Non-Af 17 L, BUN/Creatinine Ratio 11.0, Glucose 120 H, Calcium 8.4 L 08/14/19 11:38: POC Glucose 106 Current Medications Acetaminophen (Tylenol) 650 mg PO Q6H PRN PRN PRN Reason: Pain Score 1-3/Temp > 100.7 F Acetaminophen (Tylenol) 650 mg RECTAL Q4H PRN PRN PRN Reason: Pain Score 1-3/Temp > 100.7 F Albuterol Sulfate (Ventolin Aerosols) 2.5 mg INHALATION Q2H PRN PRN PRN Reason: SOB/Wheezing Allopurinol (Zyloprim) 300 mg PO DAILY [facility] Last Admin: 08/14/19 09:44 Dose: 300 mg Documented by: Aspirin (Ecotrin) 81 mg PO QHS [facility] Last Admin: 08/13/19 22:16 Dose: 81 mg Documented by: Atorvastatin Calcium (Lipitor) 80 mg PO QHS [facility] Last Admin: 08/13/19 22:16 Dose: 80 mg Documented by: Benztropine Mesylate (Cogentin) 0.5 mg PO QHS [facility] Last Admin: 08/13/19 22:16 Dose: 0.5 mg Documented by: Buspirone HCl (Buspar) 10 mg PO BID [facility] Last Admin: 08/14/19 09:44 Dose: 10 mg Documented by: Cholecalciferol (Vitamin D) 5,000 unit PO DAILY [facility] Last Admin: 08/14/19 09:44 Dose: 5,000 unit Documented by: Cyanocobalamin (Vitamin B12) 1,000 mcg PO DAILY [facility] Last Admin: 08/14/19 09:43 Dose: 1,000 mcg Documented by: Glucagon () 1 mg IM .X1 PRN PRN Reason: Hypoglycemia Haloperidol Lactate (Haldol) 1 - 2 mg IV Q4H PRN PRN PRN Reason: SEVERE AGITATION Last Admin: 08/13/19 05:38 Dose: 1 mg Documented by: Vancomycin IV Pharmacy to Dose (1 ea/ Sodium Chloride) 500 mls @ 250 mls/hr IV X1 PRN; Protocol PRN Reason: Rx to Dose Dextrose (Dextrose 10%-Water) 250 mls @ 999 mls/hr IV .Q16M PRN; Protocol PRN Reason: HYPOGLYCEMIA Sodium Chloride () 250 mls @ 15 mls/hr IV .[id number] PRN PRN Reason: Saline Flush Sodium Chloride () 250 mls @ 15 mls/hr IV .[id number] PRN PRN Reason: Additional IVPB Infusion Cefepime HCl 2 gm/ Sodium (Chloride) 100 mls @ 200 mls/hr IV Q24 [facility] Last Infusion: 08/14/19 10:30 Dose: Infused Documented by: Insulin Human Lispro (Humalog Kwikpen (Bkc)) 0 unit SC Q6 [facility]; Protocol Last Admin: 08/14/19 11:39 Dose: Not Given Documented by: Levothyroxine Sodium (Synthroid) 75 mcg PO DAILY@0600 [facility] Last Admin: 08/14/19 05:51 Dose: 75 mcg Documented by: Metoprolol Tartrate (Lopressor (Beta Armani)) 25 mg PO BID [facility] Last Admin: 08/14/19 09:43 Dose: 25 mg Documented by: Metronidazole (Flagyl) 500 mg PO TIDCM [facility] Last Admin: 08/14/19 11:39 Dose: 500 mg Documented by: Morphine Sulfate () 1 - 2 mg IV Q3H PRN PRN PRN Reason: Pain Score 1-10 Last Admin: 08/14/19 09:55 Dose: 2 mg Documented by: Nutritional Formula ([place] - Gentry Flavor) [facility] Last Admin: 08/14/19 09:42 Dose: 1 packet Documented by: Olanzapine (Zyprexa) 20 mg PO DAILY [facility] Last Admin: 08/14/19 09:44 Dose: 20 mg Documented by: Prochlorperazine Edisylate (Compazine Iv) 5 mg IV Q4H PRN PRN PRN Reason: Breakthrough Nausea/Vomiting Last Admin: 08/10/19 10:33 Dose: 5 mg Documented by: Promethazine HCl (Phenergan Suppository) 12.5 mg RECTAL Q6H PRN PRN PRN Reason: Breakthrough Nausea/Vomiting Sodium Chloride () 10 - 40 ml IV UD PRN PRN Reason: Open End PICC Flush Last Admin: 08/14/19 09:56 Dose: 10 ml Documented by: Sodium Chloride (0.9% Nacl (Sterile) Posiflush) 10 - 40 ml IV UD PRN PRN Reason: Port access or dressing change Sodium Hypochlorite (Dakins Solution 0.25% (1/2 Strength)) 1 applic TOPICAL BID [facility]; Protocol Last Admin: 08/14/19 09:45 Dose: Not Given Documented by: Trazodone HCl (Desyrel) 25 mg PO QHS [facility] Last Admin: 08/13/19 22:16 Dose: 25 mg Documented by: Venlafaxine HCl (Effexor Xr) 150 mg PO DAILY [facility] Last Admin: 08/14/19 09:44 Dose: 150 mg Documented by: STROKE Vital Signs/Narrative: Vital Signs Temp Pulse Resp BP Pulse Ox 08/14/19 13:45 97.5 F L 91 18 122/76 H 90 08/14/19 11:45 97.6 F L 95 18 120/69 91 08/14/19 10:07 97.6 F L 100 18 117/59 L 92 Medical Necessity - Tobacco Use Smoking Status: Former smoker Tobacco Use: Vapor Assessment/Plan All Active Problems ILIANA (acute kidney injury) (Acute) Fecal soiling due to fecal incontinence (Acute) 1. Severe sepsis 2/[address] IV pressure ulcer - wound with MRSA. ID following. S/p debridement per Dr. Kaiser. Continue wound care/vac. May need diverting colostomy. Continue Vanco, Flagyl, Cefepime. 2. Acute metabolic encephalopathy 2/2 sepsis - complicated by psych hx. Complicated by morphine use. Pt very confused 3. T2DM- SSI 4. Anx/Depression/Bipolar - continue home meds. 5. ILIANA on CKD III - nephrology following. renal US unremarkable. 6. HTN - controlled. 7. HLD - statin 8. Hypothyroidism - synthroid 9. GERD - PPI. 10. Tobacco abuse - vapes. will complicate wound healing. DVT ppx: lovenox DC planning: LTAC vs SNF. This patient was seen by Chandan Light PA-C under the supervision of Dr. Chris <Stacy Chris - Last Filed: 08/14/19 14:18> Vitals/I&O's: Vital Signs Temp Pulse Resp BP Pulse Ox 97.5 F L 91 18 122/76 H 90 08/14/19 13:45 08/14/19 13:45 08/14/19 13:45 08/14/19 13:45 08/14/19 13:45 Oxygen Flow Rate (L/min) 6 Oxygen Delivery Method Nasal Cannula Weight: 96.4 kg Body Mass Index (BMI) 36.9 Finger Stick Blood Glucose 134 Intake and Output for Last 24 Hours 08/12/19 08/13/19 08/14/19 23:59 23:59 23:59 Intake Total 820 / 820 2485.42 / 2485.42 200 / 200 Output Total 175 / 175 575 / 575 175 / 175 Balance 645 / 645 1910.42 / 1910.42 Microbiology Past 72 Hours 08/11/19 13:21 Bone - Buttock Gram Stain - Final 08/11/19 13:21 Bone - Buttock Wound Culture - Preliminary Meth. resistant Staph. aureus Gram positive arik 08/11/19 13:21 Bone - Buttock Anaerobic Culture - Preliminary Checking for anaerobes, further studies to follow. 08/11/19 13:15 Tissue - Buttock Gram Stain - Final 08/11/19 13:15 Tissue - Buttock Wound Culture - Final Meth. resistant Staph. aureus Presumptive C albicans 08/11/19 13:15 Tissue - Buttock Anaerobic Culture - Final No anaerobic bacteria isolated. 08/13/19 23:00 Stool C. difficile GDH Antigen & Toxins - Preliminary Toxigenic C. difficile 08/13/19 23:00 Stool C. difficile DNA Amplification - Preliminary 08/09/19 Unknown Wound - Buttock Gram Stain - Final 08/09/19 Unknown Wound - Buttock Wound Culture - Final Meth. resistant Staph. aureus Gram positive arik 08/11/19 06:40 Blood Culture (Wb) - Left Wrist Blood Culture - Preliminary No growth in 48 hours. 08/11/19 06:55 Blood Culture (Wb) - Left Wrist Blood Culture - Preliminary No growth in 48 hours. 08/09/19 06:35 Blood Culture (Wb) - Pic Blood Culture - Preliminary No growth in 48 hours. 08/10/19 04:20 Urine Catheter - Ahmadi Urine Culture - Final Presumptive C albicans Laboratory Results 08/13/19 17:35: POC Glucose 107 08/13/19 22:24: POC Glucose 113 H 08/14/19 05:56: POC Glucose 111 H 08/14/19 06:15: Random Vancomycin 19.9 H 08/14/19 06:15: WBC 34.1 H*, RBC 3.19 L, Hgb 10.0 L, Hct 33.6 L, MCV 105.3 H, MCH 31.3, MCHC 29.8 L, RDW Std Deviation 64.2 H, RDW Coeff of Harper 16.8 H, Plt Count 665 H, MPV 9.0, Differential Comment SCANNED, Diff Path Review Reviewed 08/14/19 06:15: Sodium 151 H, Potassium 3.6, Chloride 126 H, Carbon Dioxide 18.0 L, Anion Gap 7, BUN 33 H, Creatinine 3.00 H, Estim Creat Clear Calc 15.18, Est GFR (MDRD) Af Amer 20 L, Est GFR (MDRD) Non-Af 17 L, BUN/Creatinine Ratio 11.0, Glucose 120 H, Calcium 8.4 L 08/14/19 11:38: POC Glucose 106 Current Medications Acetaminophen (Tylenol) 650 mg PO Q6H PRN PRN PRN Reason: Pain Score 1-3/Temp > 100.7 F Acetaminophen (Tylenol) 650 mg RECTAL Q4H PRN PRN PRN Reason: Pain Score 1-3/Temp > 100.7 F Albuterol Sulfate (Ventolin Aerosols) 2.5 mg INHALATION Q2H PRN PRN PRN Reason: SOB/Wheezing Allopurinol (Zyloprim) 300 mg PO DAILY [facility] Last Admin: 08/14/19 09:44 Dose: 300 mg Documented by: Aspirin (Ecotrin) 81 mg PO QHS [facility] Last Admin: 08/13/19 22:16 Dose: 81 mg Documented by: Atorvastatin Calcium (Lipitor) 80 mg PO QHS [facility] Last Admin: 08/13/19 22:16 Dose: 80 mg Documented by: Benztropine Mesylate (Cogentin) 0.5 mg PO QHS [facility] Last Admin: 08/13/19 22:16 Dose: 0.5 mg Documented by: Buspirone HCl (Buspar) 10 mg PO BID [facility] Last Admin: 08/14/19 09:44 Dose: 10 mg Documented by: Cholecalciferol (Vitamin D) 5,000 unit PO DAILY [facility] Last Admin: 08/14/19 09:44 Dose: 5,000 unit Documented by: Cyanocobalamin (Vitamin B12) 1,000 mcg PO DAILY [facility] Last Admin: 08/14/19 09:43 Dose: 1,000 mcg Documented by: Glucagon () 1 mg IM .X1 PRN PRN Reason: Hypoglycemia Haloperidol Lactate (Haldol) 1 - 2 mg IV Q4H PRN PRN PRN Reason: SEVERE AGITATION Last Admin: 08/13/19 05:38 Dose: 1 mg Documented by: Vancomycin IV Pharmacy to Dose (1 ea/ Sodium Chloride) 500 mls @ 250 mls/hr IV X1 PRN; Protocol PRN Reason: Rx to Dose Dextrose (Dextrose 10%-Water) 250 mls @ 999 mls/hr IV .Q16M PRN; Protocol PRN Reason: HYPOGLYCEMIA Sodium Chloride () 250 mls @ 15 mls/hr IV .[id number] PRN PRN Reason: Saline Flush Sodium Chloride () 250 mls @ 15 mls/hr IV .[id number] PRN PRN Reason: Additional IVPB Infusion Cefepime HCl 2 gm/ Sodium (Chloride) 100 mls @ 200 mls/hr IV Q24 [facility] Last Infusion: 08/14/19 10:30 Dose: Infused Documented by: Insulin Human Lispro (Humalog Kwikpen (Bkc)) 0 unit SC Q6 [facility]; Protocol Last Admin: 08/14/19 11:39 Dose: Not Given Documented by: Levothyroxine Sodium (Synthroid) 75 mcg PO DAILY@0600 [facility] Last Admin: 08/14/19 05:51 Dose: 75 mcg Documented by: Metoprolol Tartrate (Lopressor (Beta Armani)) 25 mg PO BID [facility] Last Admin: 08/14/19 09:43 Dose: 25 mg Documented by: Metronidazole (Flagyl) 500 mg PO TIDCM [facility] Last Admin: 08/14/19 11:39 Dose: 500 mg Documented by: Morphine Sulfate () 1 - 2 mg IV Q3H PRN PRN PRN Reason: Pain Score 1-10/10 Last Admin: 08/14/19 09:55 Dose: 2 mg Documented by: Nutritional Formula ([place] - Gentry Flavor) [facility] Last Admin: 08/14/19 09:42 Dose: 1 packet Documented by: Olanzapine (Zyprexa) 20 mg PO DAILY [facility] Last Admin: 08/14/19 09:44 Dose: 20 mg Documented by: Prochlorperazine Edisylate (Compazine Iv) 5 mg IV Q4H PRN PRN PRN Reason: Breakthrough Nausea/Vomiting Last Admin: 08/10/19 10:33 Dose: 5 mg Documented by: Promethazine HCl (Phenergan Suppository) 12.5 mg RECTAL Q6H PRN PRN PRN Reason: Breakthrough Nausea/Vomiting Sodium Chloride () 10 - 40 ml IV UD PRN PRN Reason: Open End PICC Flush Last Admin: 08/14/19 09:56 Dose: 10 ml Documented by: Sodium Chloride (0.9% Nacl (Sterile) Posiflush) 10 - 40 ml IV UD PRN PRN Reason: Port access or dressing change Sodium Hypochlorite (Dakins Solution 0.25% (1/2 Strength)) 1 applic TOPICAL BID [facility]; Protocol Last Admin: 08/14/19 09:45 Dose: Not Given Documented by: Trazodone HCl (Desyrel) 25 mg PO QHS [facility] Last Admin: 08/13/19 22:16 Dose: 25 mg Documented by: Venlafaxine HCl (Effexor Xr) 150 mg PO DAILY [facility] Last Admin: 08/14/19 09:44 Dose: 150 mg Documented by: STROKE Vital Signs/Narrative: Vital Signs Temp Pulse Resp BP Pulse Ox 08/14/19 13:45 97.5 F L 91 18 122/76 H 90 08/14/19 11:45 97.6 F L 95 18 120/69 91 08/14/19 10:07 97.6 F L 100 18 117/59 L 92 Assessment/Plan This patient was seen in conjunction with VILLA Hansen. I have independently interviewed and examined the patient and reviewed pertinent historical, laboratory, and other data. Please refer to VILLA Hansen note for his patient's presentation, findings, and recommendations. I have reviewed and his note and concur with his documentation Patient remains confused. Just sedated with morphine. Appears lethargic. No acute events overnight; has had 1 bowel movement. Physical Exam: Gen: Lethargic, pale, not jaundiced CVS:HS I +II, regular, no murmurs RESP: Diminished at lung bases GI: BS present and normal, soft, nontender, no palpable organs, wound vac on EXT:Bilateral pedal edema +1, in BIMAL sandy ASSESSMENT: 1. Severe sepsis due to MRSA, GNR stage IV pressure ulcer 2. Postop day 3 status post excision infected necrotizing right buttock and sacral pressure sore, Stage IV, with partial ostectomy for osteomyelitis. 3. Acute metabolic encephalopathy 4. Anxiety/depression 5. Hypertension 6. Hyperlipidemia 7. Hypothyroidism Plan: Continue on IV vancomycin and cefepime Continue Wound VAC Code Visit Inpatient E&M: 60557 Subs Hosp L2
--- NOTE | 2019-08-14 14:18 | PCM.PN.REN ---
Patient Problems: Active and Suspected Problems ILIANA (acute kidney injury) (Acute) Subjective: no new events - Physical Exam Vitals/I&O's: Vital Signs Temp Pulse Resp BP Pulse Ox 97.5 F L 91 18 122/76 H 90 08/14/19 13:45 08/14/19 13:45 08/14/19 13:45 08/14/19 13:45 08/14/19 13:45 Oxygen Flow Rate (L/min) 6 Oxygen Delivery Method Nasal Cannula Weight: 96.4 kg Body Mass Index (BMI) 36.9 Finger Stick Blood Glucose 134 Intake and Output for Last 24 Hours 08/12/19 08/13/19 08/14/19 23:59 23:59 23:59 Intake Total 820 / 820 2485.42 / 2485.42 200 / 200 Output Total 175 / 175 575 / 575 175 / 175 Balance 645 / 645 1910.42 / 1910.42 25 / 25 General: Alert, Oriented x3, Cooperative HEENT: Atraumatic, PERRLA, EOMI, Normocephalic Neck: Supple, No JVD, Negative Carotid Bruits Lungs: Clear to auscultation, Normal air movement Cardiovascular: Regular rate, No murmurs Abdomen: Bowel Sounds Present, Soft, Non Tender Extremities: No edema, Capillary Refill Less than 3 Seconds Skin: No rashes, No breakdown Musculoskeletal: No Tenderness to Palpation of Joints or Extremities Neurological: Cranial nerves II-XII grossly intact Psych/Mental Status: Normal Affect, Appropriate Microbiology Past 72 Hours 08/11/19 13:21 Bone - Buttock Gram Stain - Final 08/11/19 13:21 Bone - Buttock Wound Culture - Preliminary Meth. resistant Staph. aureus Gram positive arik 08/11/19 13:21 Bone - Buttock Anaerobic Culture - Preliminary Checking for anaerobes, further studies to follow. 08/11/19 13:15 Tissue - Buttock Gram Stain - Final 08/11/19 13:15 Tissue - Buttock Wound Culture - Final Meth. resistant Staph. aureus Presumptive C albicans 08/11/19 13:15 Tissue - Buttock Anaerobic Culture - Final No anaerobic bacteria isolated. 08/13/19 23:00 Stool C. difficile GDH Antigen & Toxins - Preliminary Toxigenic C. difficile 08/13/19 23:00 Stool C. difficile DNA Amplification - Preliminary 08/09/19 Unknown Wound - Buttock Gram Stain - Final 08/09/19 Unknown Wound - Buttock Wound Culture - Final Meth. resistant Staph. aureus Gram positive arik 08/11/19 06:40 Blood Culture (Wb) - Left Wrist Blood Culture - Preliminary No growth in 48 hours. 08/11/19 06:55 Blood Culture (Wb) - Left Wrist Blood Culture - Preliminary No growth in 48 hours. 08/09/19 06:35 Blood Culture (Wb) - Pic Blood Culture - Preliminary No growth in 48 hours. 08/10/19 04:20 Urine Catheter - Martinez Urine Culture - Final Presumptive C albicans Laboratory Results 08/13/19 17:35: POC Glucose 107 08/13/19 22:24: POC Glucose 113 H 08/14/19 05:56: POC Glucose 111 H 08/14/19 06:15: Random Vancomycin 19.9 H 08/14/19 06:15: WBC 34.1 H*, RBC 3.19 L, Hgb 10.0 L, Hct 33.6 L, MCV 105.3 H, MCH 31.3, MCHC 29.8 L, RDW Std Deviation 64.2 H, RDW Coeff of Harper 16.8 H, Plt Count 665 H, MPV 9.0, Differential Comment SCANNED, Diff Path Review Reviewed 08/14/19 06:15: Sodium 151 H, Potassium 3.6, Chloride 126 H, Carbon Dioxide 18.0 L, Anion Gap 7, BUN 33 H, Creatinine 3.00 H, Estim Creat Clear Calc 15.18, Est GFR (MDRD) Af Amer 20 L, Est GFR (MDRD) Non-Af 17 L, BUN/Creatinine Ratio 11.0, Glucose 120 H, Calcium 8.4 L 08/14/19 11:38: POC Glucose 106 Current Medications Acetaminophen (Tylenol) 650 mg PO Q6H PRN PRN PRN Reason: Pain Score 1-3/Temp > 100.7 F Acetaminophen (Tylenol) 650 mg RECTAL Q4H PRN PRN PRN Reason: Pain Score 1-3/Temp > 100.7 F Albuterol Sulfate (Ventolin Aerosols) 2.5 mg INHALATION Q2H PRN PRN PRN Reason: SOB/Wheezing Allopurinol (Zyloprim) 300 mg PO DAILY [facility] Last Admin: 08/14/19 09:44 Dose: 300 mg Documented by: Aspirin (Ecotrin) 81 mg PO QHS [facility] Last Admin: 08/13/19 22:16 Dose: 81 mg Documented by: Atorvastatin Calcium (Lipitor) 80 mg PO QHS [facility] [place] Last Admin: 08/13/19 22:16 Dose: 80 mg Documented by: Benztropine Mesylate (Cogentin) 0.5 mg PO QHS [facility] [place] Last Admin: 08/13/19 22:16 Dose: 0.5 mg Documented by: Buspirone HCl (Buspar) 10 mg PO BID [facility] [place] Last Admin: 08/14/19 09:44 Dose: 10 mg Documented by: Cholecalciferol (Vitamin D) 5,000 unit PO DAILY [facility] [place] Last Admin: 08/14/19 09:44 Dose: 5,000 unit Documented by: Cyanocobalamin (Vitamin B12) 1,000 mcg PO DAILY [facility] [place] Last Admin: 08/14/19 09:43 Dose: 1,000 mcg Documented by: Glucagon () 1 mg IM .X1 PRN PRN Reason: Hypoglycemia Haloperidol Lactate (Haldol) 1 - 2 mg IV Q4H PRN PRN PRN Reason: SEVERE AGITATION Last Admin: 08/13/19 05:38 Dose: 1 mg Documented by: Vancomycin IV Pharmacy to Dose (1 ea/ Sodium Chloride) 500 mls @ 250 mls/hr IV X1 PRN; Protocol PRN Reason: Rx to Dose Dextrose (Dextrose 10%-Water) 250 mls @ 999 mls/hr IV .Q16M PRN; Protocol PRN Reason: HYPOGLYCEMIA Sodium Chloride () 250 mls @ 15 mls/hr IV .[id number] PRN PRN Reason: Saline Flush Sodium Chloride () 250 mls @ 15 mls/hr IV .[id number] PRN PRN Reason: Additional IVPB Infusion Cefepime HCl 2 gm/ Sodium (Chloride) 100 mls @ 200 mls/hr IV Q24 [facility] [place] Last Infusion: 08/14/19 10:30 Dose: Infused Documented by: Insulin Human Lispro (Humalog Kwikpen (Bkc)) 0 unit SC Q6 [facility] [place]; Protocol Last Admin: 08/14/19 11:39 Dose: Not Given Documented by: Levothyroxine Sodium (Synthroid) 75 mcg PO DAILY@0600 [facility] [place] Last Admin: 08/14/19 05:51 Dose: 75 mcg Documented by: Metoprolol Tartrate (Lopressor (Beta Armani)) 25 mg PO BID [facility] [place] Last Admin: 08/14/19 09:43 Dose: 25 mg Documented by: Metronidazole (Flagyl) 500 mg PO TIDCM [facility] [place] Last Admin: 08/14/19 11:39 Dose: 500 mg Documented by: Morphine Sulfate () 1 - 2 mg IV Q3H PRN PRN PRN Reason: Pain Score 1-10/10 Last Admin: 08/14/19 09:55 Dose: 2 mg Documented by: Nutritional Formula ([place] - [place] Flavor) [facility] Last Admin: 08/14/19 09:42 Dose: 1 packet Documented by: Olanzapine (Zyprexa) 20 mg PO DAILY [facility] [place] Last Admin: 08/14/19 09:44 Dose: 20 mg Documented by: Prochlorperazine Edisylate (Compazine Iv) 5 mg IV Q4H PRN PRN PRN Reason: Breakthrough Nausea/Vomiting Last Admin: 08/10/19 10:33 Dose: 5 mg Documented by: Promethazine HCl (Phenergan Suppository) 12.5 mg RECTAL Q6H PRN PRN PRN Reason: Breakthrough Nausea/Vomiting Sodium Chloride () 10 - 40 ml IV UD PRN PRN Reason: Open End PICC Flush Last Admin: 08/14/19 09:56 Dose: 10 ml Documented by: Sodium Chloride (0.9% Nacl (Sterile) Posiflush) 10 - 40 ml IV UD PRN PRN Reason: Port access or dressing change Sodium Hypochlorite (Dakins Solution 0.25% (1/2 Strength)) 1 applic TOPICAL BID [facility] [place]; Protocol Last Admin: 08/14/19 09:45 Dose: Not Given Documented by: Trazodone HCl (Desyrel) 25 mg PO QHS [facility] [place] Last Admin: 08/13/19 22:16 Dose: 25 mg Documented by: Venlafaxine HCl (Effexor Xr) 150 mg PO DAILY [facility] [place] Last Admin: 08/14/19 09:44 Dose: 150 mg Documented by: Medical Necessity - Tobacco Use Smoking Status: Former smoker Tobacco Use: Vapor Assessment/Plan All Active Problems ILIANA (acute kidney injury) (Acute) Fecal soiling due to fecal incontinence (Acute) ILIANA. normal baseline. now worsening. patient has severe sepsis likely related to sacral decubitus ulcer. renal US without hydronephrosis UA is dirty but she has a martinez and urine looks muddy Did receive vanco with somewhat higher trough levels no contrast studies BP is better ILIANA is likely ATN due to vanco, sepsis. urine output is present no acute indications for [employer]VENT[employer]AL [employer] dw primary service. consider switching vanco to other agents will follow Thank you
[2019-08-14 17:15] LABS: Bedside Glucose 91 mg/dL (70-110)
[2019-08-14] MEDS: traZODone 50 MG Tablet 25 MG PO (21:35)
[2019-08-14] MEDS: Aspirin E.C. 81 MG Tablet PO (21:35)
[2019-08-14] MEDS: Benztropine 2 MG Tablet 0.5 MG PO (21:36)
[2019-08-14] MEDS: Atorvastatin Calcium 80 MG Tablet PO (21:36)
[2019-08-15] VITALS (19 sets, daily range): BP systolic 111–150; BP diastolic 53–85; PULSE 90–101; RESP 15–22; TEMP 36.2–36.4; O2SAT 90–96
[2019-08-15 00:11] LABS: Bedside Glucose 114 mg/dL (70-110)
[2019-08-15 05:51] LABS: Bedside Glucose 91 mg/dL (70-110)
[2019-08-15 06:41] LABS: Hematocrit 33.3 % (37-47); Mean Corpuscular Hgb 32.1 pg (27.0-32.0); Mean Corpuscular Volume 106.7 fL (81-99); Mean Platelet Vol. 9.2 fl (6.2-12.0); POSITIVE COUNT YES; POSITIVE DIFFERENTIAL YES; POSITIVE MORPHOLOGY YES; Platelet Count 693 K/mm3 (150-450); RBC Distribution Width CV 17.4 % (11.6-14.6); RBC Distribution Width SD 68.3 fl (35.1-43.9); Red Blood Count 3.12 M/mm3 (4.2-5.4)
[2019-08-15 07:02] LABS: Differential Indicated MANUAL DIFF
[2019-08-15 07:06] LABS: Vancomycin, Random Level 18.5 ug/mL (0.0-15.0)
[2019-08-15 07:10] LABS: Neutrophil-Band 8 % (0-5); Neutrophil-Segmented 64 % (47-70); Total Cells Counted 100 (MANUAL DIFF)
[2019-08-15 07:11] LABS: Eosinophil 2 % (0-5); Lymphocyte 17 % (19-41); Metamyelocyte 2 % (0-1); Monocyte 5 % (0-10); Myelocyte 2 (0-0)
[2019-08-15 07:13] LABS: Absolute Lymphocyte Count 6.28 X10^3/uL (0.83-4.51); Absolute Neutrophil Count 26.6 X10^3/uL (2.0-7.7)
[2019-08-15 07:34] LABS: Anion Gap 5 (5-15); BUN 37 mg/dL (7-18); BUN/Creat Ratio 10.2 RATIO (10-20); Calcium,Total 8.7 mg/dL (8.5-10.1); Chloride 130 mmol/L (98-107); Creatinine, Serum 3.61 mg/dL (0.55-1.02); EST Glomerular Filtration Rate 14 mL/min (>60); Est Glom Filt Rate - Afr Amer 16 mL/min (>60); Estimated Creatinine Clearance 12.62 ml/min; Glucose 114 mg/dL (74-106); Potassium 3.9 mmol/L (3.5-5.1); Sodium Level 153 mmol/L (136-145)
--- NOTE | 2019-08-15 08:50 | PN_ITS ---
Subjective: Patient reportedly did okay overnight, but has been on nasal cannula consistently. This morning on my evaluation, patient was unable to follow comm ands. Patient was very slow to respond to verbal commands and was unable to process requests. Spontaneous movement of bilateral upper extremities noted. Did attempt to make eye contact. General: Confused, Disoriented, Lethargic, - - Obese. HEENT: Atraumatic, PERRLA, EOMI, - - Slight scleral injection without icterus Oral: Moist Mucosa, No Gingival or Mucosal Lesions/ Ulcerations Neck: Supple, No JVD, No Nodes, Trachea Midline Lungs: No wheeze, No rales, Diminished, Rhonchi, - - Fair effort. Cardiovascular: Regular rate, Regular Rhythm, Normal S1, Normal S2, No murmurs, No rub noted, No Gallop Abdomen: Bowel Sounds Present, Soft, Non Tender, Distended - Slightly Extremities: No cyanosis, Clubbing, Edema Skin: - - No change compared to previous Musculoskeletal: No Tenderness to Palpation of Joints or Extremities Lymphatic: No Cervical, Supraclavicular, or Inguinal Adenopathy Neurological: Cranial nerves II-XII grossly intact, Neuro grossly intact Psych/Mental Status: Flat Affect, Restless Vital Signs Temp Pulse Resp BP Pulse Ox 36.2 C L 95 20 H 113/85 H 94 08/15/19 03:26 08/15/19 06:46 08/15/19 03:26 08/15/19 03:26 08/15/19 07:37 Oxygen Flow Rate (L/min) 6 Oxygen Delivery Method Nasal Cannula Weight: 96.2 kg Body Mass Index (BMI) 36.9 Finger Stick Blood Glucose 134 Intake and Output for Last 24 Hours 08/13/19 08/14/19 08/15/19 23:59 23:59 23:59 Intake Total 2485.42 / 2485.42 200 / 200 Output Total 575 / 575 175 / 175 200 / 200 Balance 1910.42 / 1910.42 25 / 25 -200 / -200 Labs (Last 48 Hours) 08/12/19 08/13/19 08/13/19 07:56 03:58 03:58 WBC RBC Hgb Hct MCV MCH MCHC RDW Std Deviation RDW Coeff of Harper Plt Count MPV Neut % (Auto) Absolute Neuts (auto) Absolute Lymphs (auto) Total Counted Neutrophils % (Manual) Band Neutrophils % Lymphocytes % (Manual) Monocytes % (Manual) Eosinophils % (Manual) Metamyelocytes % Myelocytes % Differential Comment Diff Path Review Reviewed Reviewed Sodium Potassium Chloride Carbon Dioxide Anion Gap BUN Creatinine Estim Creat Clear Calc Est GFR (MDRD) Af Amer Est GFR (MDRD) Non-Af BUN/Creatinine Ratio Glucose Calcium Lactate Dehydrogenase 565 H Total Protein 5.1 L Globulin 3.9 Albumin/Globulin Ratio 0.3 L Random Vancomycin POC Glucose 08/13/19 08/13/19 08/13/19 12:55 17:35 22:24 WBC RBC Hgb Hct MCV MCH MCHC RDW Std Deviation RDW Coeff of Harper Plt Count MPV Neut % (Auto) Absolute Neuts (auto) Absolute Lymphs (auto) Total Counted Neutrophils % (Manual) Band Neutrophils % Lymphocytes % (Manual) Monocytes % (Manual) Eosinophils % (Manual) Metamyelocytes % Myelocytes % Differential Comment Diff Path Review Sodium Potassium Chloride Carbon Dioxide Anion Gap BUN Creatinine Estim Creat Clear Calc Est GFR (MDRD) Af Amer Est GFR (MDRD) Non-Af BUN/Creatinine Ratio Glucose Calcium Lactate Dehydrogenase Total Protein Globulin Albumin/Globulin Ratio Random Vancomycin POC Glucose 134 H 107 113 H 08/14/19 08/14/19 08/14/19 05:56 06:15 06:15 WBC 34.1 H* RBC 3.19 L Hgb 10.0 L Hct 33.6 L MCV 105.3 H MCH 31.3 MCHC 29.8 L RDW Std Deviation 64.2 H RDW Coeff of Harper 16.8 H Plt Count 665 H MPV 9.0 Neut % (Auto) Absolute Neuts (auto) Absolute Lymphs (auto) Total Counted Neutrophils % (Manual) Band Neutrophils % Lymphocytes % (Manual) Monocytes % (Manual) Eosinophils % (Manual) Metamyelocytes % Myelocytes % Differential Comment SCANNED Diff Path Review Reviewed Sodium Potassium Chloride Carbon Dioxide Anion Gap BUN Creatinine Estim Creat Clear Calc Est GFR (MDRD) Af Amer Est GFR (MDRD) Non-Af BUN/Creatinine Ratio Glucose Calcium Lactate Dehydrogenase Total Protein Globulin Albumin/Globulin Ratio Random Vancomycin 19.9 H POC Glucose 111 H 08/14/19 08/14/19 08/14/19 06:15 11:38 17:08 WBC RBC Hgb Hct MCV MCH MCHC RDW Std Deviation RDW Coeff of Harper Plt Count MPV Neut % (Auto) Absolute Neuts (auto) Absolute Lymphs (auto) Total Counted Neutrophils % (Manual) Band Neutrophils % Lymphocytes % (Manual) Monocytes % (Manual) Eosinophils % (Manual) Metamyelocytes % Myelocytes % Differential Comment Diff Path Review Sodium 151 H Potassium 3.6 Chloride 126 H Carbon Dioxide 18.0 L Anion Gap 7 BUN 33 H Creatinine 3.00 H Estim Creat Clear Calc 15.18 Est GFR (MDRD) Af Amer 20 L Est GFR (MDRD) Non-Af 17 L BUN/Creatinine Ratio 11.0 Glucose 120 H Calcium 8.4 L Lactate Dehydrogenase Total Protein Globulin Albumin/Globulin Ratio Random Vancomycin POC Glucose 106 91 08/15/19 08/15/19 08/15/19 00:03 05:41 06:11 WBC RBC Hgb Hct MCV MCH MCHC RDW Std Deviation RDW Coeff of Harper Plt Count MPV Neut % (Auto) Absolute Neuts (auto) Absolute Lymphs (auto) Total Counted Neutrophils % (Manual) Band Neutrophils % Lymphocytes % (Manual) Monocytes % (Manual) Eosinophils % (Manual) Metamyelocytes % Myelocytes % Differential Comment Diff Path Review Sodium Potassium Chloride Carbon Dioxide Anion Gap BUN Creatinine Estim Creat Clear Calc Est GFR (MDRD) Af Amer Est GFR (MDRD) Non-Af BUN/Creatinine Ratio Glucose Calcium Lactate Dehydrogenase Total Protein Globulin Albumin/Globulin Ratio Random Vancomycin 18.5 H POC Glucose 114 H 91 08/15/19 08/15/19 06:11 06:11 WBC 37.0 H* RBC 3.12 L Hgb 10.0 L Hct 33.3 L MCV 106.7 H MCH 32.1 H MCHC 30.0 L RDW Std Deviation 68.3 H RDW Coeff of Harper 17.4 H Plt Count 693 H MPV 9.2 Neut % (Auto) Not Reportable Absolute Neuts (auto) 26.6 H Absolute Lymphs (auto) 6.28 H Total Counted 100 Neutrophils % (Manual) 64 Band Neutrophils % 8 H Lymphocytes % (Manual) 17 L Monocytes % (Manual) 5 Eosinophils % (Manual) 2 Metamyelocytes % 2 H Myelocytes % 2 H Differential Comment Diff Path Review May foll Sodium 153 H Potassium 3.9 Chloride 130 H* Carbon Dioxide 18.0 L Anion Gap 5 BUN 37 H Creatinine 3.61 H Estim Creat Clear Calc 12.62 Est GFR (MDRD) Af Amer 16 L Est GFR (MDRD) Non-Af 14 L BUN/Creatinine Ratio 10.2 Glucose 114 H Calcium 8.7 Lactate Dehydrogenase Total Protein Globulin Albumin/Globulin Ratio Random Vancomycin POC Glucose Microbiology 08/11/19 13:21 Bone - Buttock Gram Stain - Final 08/11/19 13:21 Bone - Buttock Wound Culture - Final Meth. resistant Staph. aureus Corynebacterium striatum 08/11/19 13:21 Bone - Buttock Anaerobic Culture - Preliminary Checking for anaerobes, further studies to follow. 08/09/19 06:35 Blood Culture (Wb) - Pic Blood Culture - Final No growth in 5 days. 08/13/19 23:00 Stool C. difficile GDH Antigen & Toxins - Final 08/13/19 23:00 Stool C. difficile DNA Amplification - Final 08/11/19 13:15 Tissue - Buttock Gram Stain - Final 08/11/19 13:15 Tissue - Buttock Wound Culture - Final Meth. resistant Staph. aureus Presumptive C albicans 08/11/19 13:15 Tissue - Buttock Anaerobic Culture - Final No anaerobic bacteria isolated. 08/09/19 Unknown Wound - Buttock Gram Stain - Final 08/09/19 Unknown Wound - Buttock Wound Culture - Final Meth. resistant Staph. aureus Gram positive arik 08/11/19 06:40 Blood Culture (Wb) - Left Wrist Blood Culture - Preliminary No growth in 48 hours. 08/11/19 06:55 Blood Culture (Wb) - Left Wrist Blood Culture - Preliminary No growth in 48 hours. Medical Necessity - Tobacco Use Smoking Status: Former smoker Tobacco Use: Vapor Assessment/Plan All Active Problems ILIANA (acute kidney injury) (Acute) Fecal soiling due to fecal incontinence (Acute) RECOMMENDATIONS: 1. Continue antibiotics per infectious disease. 2. Continue plastic surgery evaluation. Continue local wound care. Possible diverting colostomy 3. Wean supplemental oxygen to maintain saturations at or above 90%. 4. Add transcutaneous CO2 monitoring 5. Initiate free water administration 6. Initiate BiPAP. BiPAP breaks only as tolerated. Continue with sleep indefinitely IMPRESSIONS: 1. 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 Cultures are currently showing MRSA and Corynebacterium. Patient is on cefepime, which should cover reported organisms. Vancomycin has been held secondary to renal function. Patient may require diverting colostomy. Blood pressure has been stable, but continues to have significant leukocytosis. 2. Encephalopathy Patient continues to be confused. Patient is now significantly lethargic. Clinical suspicion for CO2 retention secondary to noncompliance with BiPAP overnight. Initiate BiPAP immediately. Add transcutaneous CO2 monitoring. Continue baseline psychiatric medications. Antibiotics will be continued to address her infectious etiologies. 3. Acute on chronic hypercarbic respiratory failure?obstructive sleep apnea Repeat ABG showed good response to AVAPS therapy. This should be continued with sleep, sedation or as rescue during the day if necessary. Patient with significant non-anion gap hyperchloremic metabolic acidosis, which will increase respiratory demands. Patient would benefit from free water administration. 4. History of bipolar disorder/diabetes mellitus/hypertension/hyperlipidemia/obesity/chronic kidney disease Complicates care, management, recovery and prognosis. Continue home medications as indicated. Code Visit Inpatient E&M: [id number] [facility] Hosp L3
--- NOTE | 2019-08-15 09:15 | NURSING ---
Pt is quite lethargic and confused this am. WBC 37,000 this am. wound VAC with good seal noted at 150mmHg low continuous suction. dressing is due to be changed again tomorrow. will continue to follow.
[2019-08-15] MEDS: Morphine 2 MG/ML Syringe IV (09:21)
[2019-08-15] MEDS: 0.9% Saline Lock 10 ML Syringe IV (09:21)
--- NOTE | 2019-08-15 10:35 | NURSING ---
This RN called the pt's , Ramon and recommend that he come in to talk with the MD concerning his 's condition so everyone will be on the same page
[2019-08-15 11:16] LABS: Bedside Glucose 119 mg/dL (70-110)
--- NOTE | 2019-08-15 11:30 | CPS ---
Addendum entered and electronically signed by Joselyn Campa, LAB ENGINEER 08/15/19 11:32: TCO2 order is from Dr Sy from his consult notes. Original Note: started TCO2 monitor @0910, 34 @1038, placed pt on her own Autopap w/5lpm O2 bleed-in. SpO2=90%.
--- NOTE | 2019-08-15 12:11 | PCM.PN.ID ---
Patient Problems: Active and Suspected Problems ILIANA (acute kidney injury) (Acute) Subjective: more confusion, more trouble breathing, family at bedside. No fever. - Physical Exam Vitals/I&O's: Vital Signs Temp Pulse Resp BP Pulse Ox 97.4 F L 99 18 150/70 H 90 08/15/19 09:09 08/15/19 09:27 08/15/19 09:09 08/15/19 09:09 08/15/19 10:38 Oxygen Flow Rate (L/min) 6 Oxygen Delivery Method CPAP Weight: 96.2 kg Body Mass Index (BMI) 36.9 Finger Stick Blood Glucose 134 Intake and Output for Last 24 Hours 08/13/19 08/14/19 08/15/19 23:59 23:59 23:59 Intake Total 2485.42 / 2485.42 200 / 200 100 / 100 Output Total 575 / 575 175 / 175 200 / 200 Balance 1910.42 / 1910.42 25 / 25 -100 / -100 General: Lethargic, Non-Cooperative Lungs: Diminished Cardiovascular: Regular rate, Regular Rhythm Abdomen: Soft, Non Tender, Non-Distended Skin: Ulcer/ Wound Microbiology Past 72 Hours 08/11/19 13:21 Bone - Buttock Gram Stain - Final 08/11/19 13:21 Bone - Buttock Wound Culture - Final Meth. resistant Staph. aureus Corynebacterium striatum 08/11/19 13:21 Bone - Buttock Anaerobic Culture - Preliminary Checking for anaerobes, further studies to follow. 08/09/19 06:35 Blood Culture (Wb) - Pic Blood Culture - Final No growth in 5 days. 08/13/19 23:00 Stool C. difficile GDH Antigen & Toxins - Final 08/13/19 23:00 Stool C. difficile DNA Amplification - Final 08/11/19 13:15 Tissue - Buttock Gram Stain - Final 08/11/19 13:15 Tissue - Buttock Wound Culture - Final Meth. resistant Staph. aureus Presumptive C albicans 08/11/19 13:15 Tissue - Buttock Anaerobic Culture - Final No anaerobic bacteria isolated. 08/09/19 Unknown Wound - Buttock Gram Stain - Final 08/09/19 Unknown Wound - Buttock Wound Culture - Final Meth. resistant Staph. aureus Gram positive arik 08/11/19 06:40 Blood Culture (Wb) - Left Wrist Blood Culture - Preliminary No growth in 48 hours. 08/11/19 06:55 Blood Culture (Wb) - Left Wrist Blood Culture - Preliminary No growth in 48 hours. 08/10/19 04:20 Urine Catheter - Ahmadi Urine Culture - Final Presumptive C albicans Laboratory Results 08/14/19 17:08: POC Glucose 91 08/15/19 00:03: POC Glucose 114 H 08/15/19 05:41: POC Glucose 91 08/15/19 06:11: Random Vancomycin 18.5 H 08/15/19 06:11: WBC 37.0 H*, RBC 3.12 L, Hgb 10.0 L, Hct 33.3 L, MCV 106.7 H, MCH 32.1 H, MCHC 30.0 L, RDW Std Deviation 68.3 H, RDW Coeff of Harper 17.4 H, Plt Count 693 H, MPV 9.2, Neut % (Auto) Not Reportable, Absolute Neuts (auto) 26.6 H, Absolute Lymphs (auto) 6.28 H, Total Counted 100, Neutrophils % (Manual) 64, Band Neutrophils % 8 H, Lymphocytes % (Manual) 17 L, Monocytes % (Manual) 5, Eosinophils % (Manual) 2, Metamyelocytes % 2 H, Myelocytes % 2 H, Diff Path Review November08/15/19 06:11: Sodium 153 H, Potassium 3.9, Chloride 130 H*, Carbon Dioxide 18.0 L, Anion Gap 5, BUN 37 H, Creatinine 3.61 H, Estim Creat Clear Calc 12.62, Est GFR (MDRD) Af Amer 16 L, Est GFR (MDRD) Non-Af 14 L, BUN/Creatinine Ratio 10.2, Glucose 114 H, Calcium 8.7 08/15/19 11:08: POC Glucose 119 H Current Medications Acetaminophen (Tylenol) 650 mg PO Q6H PRN PRN PRN Reason: Pain Score 1-3/Temp > 100.7 F Acetaminophen (Tylenol) 650 mg RECTAL Q4H PRN PRN PRN Reason: Pain Score 1-3/Temp > 100.7 F Albuterol Sulfate (Ventolin Aerosols) 2.5 mg INHALATION Q2H PRN PRN PRN Reason: SOB/Wheezing Allopurinol (Zyloprim) 300 mg PO DAILY DUONG Last Admin: 08/15/19 09:27 Dose: Not Given Documented by: Aspirin (Ecotrin) 81 mg PO QHS [facility] Last Admin: 08/14/19 21:35 Dose: 81 mg Documented by: Atorvastatin Calcium (Lipitor) 80 mg PO QHS [facility] Last Admin: 08/14/19 21:36 Dose: 80 mg Documented by: Cholecalciferol (Vitamin D) 5,000 unit PO DAILY [facility] Last Admin: 08/15/19 09:27 Dose: Not Given Documented by: Cyanocobalamin (Vitamin B12) 1,000 mcg PO DAILY [facility] Last Admin: 08/15/19 09:27 Dose: Not Given Documented by: Glucagon () 1 mg IM .X1 PRN PRN Reason: Hypoglycemia Dextrose (Dextrose 10%-Water) 250 mls @ 999 mls/hr IV .Q16M PRN; Protocol PRN Reason: HYPOGLYCEMIA Sodium Chloride () 250 mls @ 15 mls/hr IV .[id number] PRN PRN Reason: Saline Flush Sodium Chloride () 250 mls @ 15 mls/hr IV .[id number] PRN PRN Reason: Additional IVPB Infusion Dextrose () 1,000 mls @ 100 mls/hr IV .Q10H [facility] Last Admin: 08/15/19 08:48 Dose: 100 mls/hr Documented by: Cefepime HCl 1 gm/ Sodium (Chloride) 50 mls @ 100 mls/hr IV Q24 [facility] Daptomycin 600 mg/ Sodium (Chloride) 62 mls @ 100 mls/hr IV Q48 [facility] Insulin Human Lispro (Humalog Kwikpen (Bkc)) 0 unit SC Q6 [facility]; Protocol Last Admin: 08/15/19 12:08 Dose: Not Given Documented by: Levothyroxine Sodium (Synthroid) 75 mcg PO DAILY@0600 [facility] Last Admin: 08/15/19 05:43 Dose: Not Given Documented by: Metoprolol Tartrate (Lopressor (Beta Armani)) 25 mg PO BID [facility] Last Admin: 08/15/19 09:27 Dose: Not Given Documented by: Metronidazole (Flagyl) 500 mg PO TIDCM [facility] Last Admin: 08/15/19 12:08 Dose: Not Given Documented by: Nutritional Formula ([place] Flavor) [facility] Last Admin: 08/15/19 08:49 Dose: Not Given Documented by: Prochlorperazine Edisylate (Compazine Iv) 5 mg IV Q4H PRN PRN PRN Reason: Breakthrough Nausea/Vomiting Last Admin: 08/10/19 10:33 Dose: 5 mg Documented by: Sodium Chloride () 10 - 40 ml IV UD PRN PRN Reason: Open End PICC Flush Last Admin: 08/15/19 09:21 Dose: 10 ml Documented by: Sodium Chloride (0.9% Nacl (Sterile) Posiflush) 10 - 40 ml IV UD PRN PRN Reason: Port access or dressing change Sodium Hypochlorite (Dakins Solution 0.25% (1/2 Strength)) 1 applic TOPICAL BID [facility]; Protocol Last Admin: 08/15/19 09:26 Dose: Not Given Documented by: Vancomycin HCl () 125 mg PO Q6 [facility] Medical Necessity - Tobacco Use Smoking Status: Former smoker Tobacco Use: Vapor Route of nutrition/ use of supplements: [] Nutritional Intake: [] IV Site: [] Ahmadi Catheter: [] - Assessment/Plan Antibiotics: [] Assessment/Plan: [] 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 Prior cxs with corynebacteria, ecoli, serratia, anaerobes. Recent ucx with VRE and heidi. Taken to OR 2/[address] Kaiser. On vanc/cefepime, added flagyl 2/3. Diverting ostomy planned. Not having much diarrhea, and cdiff testing did not show active toxin. Overall worsening respiratory, mental, and renal status. Vanc trough slowly trending down. Will change to dapto. Restart po vanc. Will follow, d/w primary team.
--- NOTE | 2019-08-15 12:32 | PCM.PN.HOSP ---
<Chandan Light - Last Filed: 08/15/19 12:32> Patient Problems: Active and Suspected Problems ILIANA (acute kidney injury) (Acute) Reason for Visit: osteo Subjective: Pt obtunded. Not answering questions. She is on bipap. Family present, considering code status. Vitals/I&O's: Vital Signs Temp Pulse Resp BP Pulse Ox 97.4 F L 99 18 150/70 H 90 08/15/19 09:09 08/15/19 09:27 08/15/19 09:09 08/15/19 09:09 08/15/19 10:38 Oxygen Flow Rate (L/min) 6 Oxygen Delivery Method CPAP Weight: 212 lb 1.355 oz Body Mass Index (BMI) 36.9 Finger Stick Blood Glucose 134 Intake and Output for Last 24 Hours 08/13/19 08/14/19 08/15/19 23:59 23:59 23:59 Intake Total 2485.42 / 2485.42 200 / 200 100 / 100 Output Total 575 / 575 175 / 175 200 / 200 Balance 1910.42 / 1910.42 25 / 25 -100 / -100 General: Alert, Confused, Lethargic HEENT: Atraumatic, PERRLA, EOMI, Normocephalic Neck: Supple, No JVD, Negative Carotid Bruits Lungs: Diminished, Rales - faint Cardiovascular: Regular rate, No murmurs Abdomen: Bowel Sounds Present, Soft, Non Tender Extremities: No edema, Capillary Refill Less than 3 Seconds Skin: No rashes, No breakdown Musculoskeletal: No Tenderness to Palpation of Joints or Extremities Neurological: Cranial nerves II-XII grossly intact Psych/Mental Status: Normal Affect, Appropriate, Alert and oriented to time, place, person, mood and affect Microbiology Past 72 Hours 08/11/19 13:21 Bone - Buttock Gram Stain - Final 08/11/19 13:21 Bone - Buttock Wound Culture - Final Meth. resistant Staph. aureus Corynebacterium striatum 08/11/19 13:21 Bone - Buttock Anaerobic Culture - Preliminary Checking for anaerobes, further studies to follow. 08/09/19 06:35 Blood Culture (Wb) - Pic Blood Culture - Final No growth in 5 days. 08/13/19 23:00 Stool C. difficile GDH Antigen & Toxins - Final 08/13/19 23:00 Stool C. difficile DNA Amplification - Final 08/11/19 13:15 Tissue - Buttock Gram Stain - Final 08/11/19 13:15 Tissue - Buttock Wound Culture - Final Meth. resistant Staph. aureus Presumptive C albicans 08/11/19 13:15 Tissue - Buttock Anaerobic Culture - Final No anaerobic bacteria isolated. 08/09/19 Unknown Wound - Buttock Gram Stain - Final 08/09/19 Unknown Wound - Buttock Wound Culture - Final Meth. resistant Staph. aureus Gram positive arik 08/11/19 06:40 Blood Culture (Wb) - Left Wrist Blood Culture - Preliminary No growth in 48 hours. 08/11/19 06:55 Blood Culture (Wb) - Left Wrist Blood Culture - Preliminary No growth in 48 hours. 08/10/19 04:20 Urine Catheter - Ahmadi Urine Culture - Final Presumptive C albicans Laboratory Results 08/14/19 17:08: POC Glucose 91 08/15/19 00:03: POC Glucose 114 H 08/15/19 05:41: POC Glucose 91 08/15/19 06:11: Random Vancomycin 18.5 H 08/15/19 06:11: WBC 37.0 H*, RBC 3.12 L, Hgb 10.0 L, Hct 33.3 L, MCV 106.7 H, MCH 32.1 H, MCHC 30.0 L, RDW Std Deviation 68.3 H, RDW Coeff of Harper 17.4 H, Plt Count 693 H, MPV 9.2, Neut % (Auto) Not Reportable, Absolute Neuts (auto) 26.6 H, Absolute Lymphs (auto) 6.28 H, Total Counted 100, Neutrophils % (Manual) 64, Band Neutrophils % 8 H, Lymphocytes % (Manual) 17 L, Monocytes % (Manual) 5, Eosinophils % (Manual) 2, Metamyelocytes % 2 H, Myelocytes % 2 H, Diff Path Review November08/15/19 06:11: Sodium 153 H, Potassium 3.9, Chloride 130 H*, Carbon Dioxide 18.0 L, Anion Gap 5, BUN 37 H, Creatinine 3.61 H, Estim Creat Clear Calc 12.62, Est GFR (MDRD) Af Amer 16 L, Est GFR (MDRD) Non-Af 14 L, BUN/Creatinine Ratio 10.2, Glucose 114 H, Calcium 8.7 08/15/19 11:08: POC Glucose 119 H Current Medications Acetaminophen (Tylenol) 650 mg PO Q6H PRN PRN PRN Reason: Pain Score 1-3/Temp > 100.7 F Acetaminophen (Tylenol) 650 mg RECTAL Q4H PRN PRN PRN Reason: Pain Score 1-3/Temp > 100.7 F Albuterol Sulfate (Ventolin Aerosols) 2.5 mg INHALATION Q2H PRN PRN PRN Reason: SOB/Wheezing Allopurinol (Zyloprim) 300 mg PO DAILY [facility] Last Admin: 08/15/19 09:27 Dose: Not Given Documented by: Aspirin (Ecotrin) 81 mg PO QHS [facility] Last Admin: 08/14/19 21:35 Dose: 81 mg Documented by: Atorvastatin Calcium (Lipitor) 80 mg PO QHS [facility] Last Admin: 08/14/19 21:36 Dose: 80 mg Documented by: Cholecalciferol (Vitamin D) 5,000 unit PO DAILY [facility] Last Admin: 08/15/19 09:27 Dose: Not Given Documented by: Cyanocobalamin (Vitamin B12) 1,000 mcg PO DAILY [facility] Last Admin: 08/15/19 09:27 Dose: Not Given Documented by: Glucagon () 1 mg IM .X1 PRN PRN Reason: Hypoglycemia Dextrose (Dextrose 10%-Water) 250 mls @ 999 mls/hr IV .Q16M PRN; Protocol PRN Reason: HYPOGLYCEMIA Sodium Chloride () 250 mls @ 15 mls/hr IV .[id number] PRN PRN Reason: Saline Flush Sodium Chloride () 250 mls @ 15 mls/hr IV .[id number] PRN PRN Reason: Additional IVPB Infusion Dextrose () 1,000 mls @ 100 mls/hr IV .Q10H [facility] Last Admin: 08/15/19 08:48 Dose: 100 mls/hr Documented by: Cefepime HCl 1 gm/ Sodium (Chloride) 50 mls @ 100 mls/hr IV Q24 [facility] Daptomycin 600 mg/ Sodium (Chloride) 62 mls @ 100 mls/hr IV Q48 [facility] Insulin Human Lispro (Humalog Kwikpen (Bkc)) 0 unit SC Q6 [facility]; Protocol Last Admin: 08/15/19 12:08 Dose: Not Given Documented by: Levothyroxine Sodium (Synthroid) 75 mcg PO DAILY@0600 [facility] Last Admin: 08/15/19 05:43 Dose: Not Given Documented by: Metoprolol Tartrate (Lopressor (Beta Armani)) 25 mg PO BID [facility] Last Admin: 08/15/19 09:27 Dose: Not Given Documented by: Metronidazole (Flagyl) 500 mg PO TIDCM [facility] Last Admin: 08/15/19 12:08 Dose: Not Given Documented by: Nutritional Formula ([place] Flavor) [facility] Last Admin: 08/15/19 08:49 Dose: Not Given Documented by: Prochlorperazine Edisylate (Compazine Iv) 5 mg IV Q4H PRN PRN PRN Reason: Breakthrough Nausea/Vomiting Last Admin: 08/10/19 10:33 Dose: 5 mg Documented by: Sodium Chloride () 10 - 40 ml IV UD PRN PRN Reason: Open End PICC Flush Last Admin: 08/15/19 09:21 Dose: 10 ml Documented by: Sodium Chloride (0.9% Nacl (Sterile) Posiflush) 10 - 40 ml IV UD PRN PRN Reason: Port access or dressing change Sodium Hypochlorite (Dakins Solution 0.25% (1/2 Strength)) 1 applic TOPICAL BID [facility]; Protocol Last Admin: 08/15/19 09:26 Dose: Not Given Documented by: Vancomycin HCl () 125 mg PO Q6 [facility] STROKE Vital Signs/Narrative: Vital Signs Temp Pulse Resp BP Pulse Ox 08/15/19 10:38 90 08/15/19 09:27 99 08/15/19 09:10 94 08/15/19 09:09 97.4 F L 99 18 150/70 H 95 Medical Necessity - Tobacco Use Smoking Status: Former smoker Tobacco Use: Vapor Assessment/Plan All Active Problems ILIANA (acute kidney injury) (Acute) Fecal soiling due to fecal incontinence (Acute) 1. Severe sepsis 2/[address] IV pressure ulcer, presumed osteo - wound with MRSA. ID following. S/p debridement per Dr. Kaiser. Continue wound care/vac. May need diverting colostomy. Continue Flagyl, Cefepime. Vanc level still high. 2. Acute metabolic encephalopathy 2/2 sepsis - mentation poor. worsening electrolytes. 3. Hypernatremia, hyperchloremia - D5W 4. C diff - PO vanco. 5. Acute on chronic hypercarbic respiratory failure - bipap, transQ CO2 monitoring, ABG pending. May need intubated. 6. T2DM- SSI 7. Anx/Depression/Bipolar - meds held for sedation 8. ILIANA on CKD III - nephrology following. renal US unremarkable. Worse. Pt with very little PO intake and low output. Started on D5W 9. HTN - controlled. 10. HLD - statin 11. Hypothyroidism - synthroid 12. GERD - PPI. 13. Tobacco abuse - vapes. will complicate wound healing. Discussed CODE status with family. They are considering their options, for now she will remain full code until further decision are made. DVT ppx: lovenox DC planning: LTAC vs SNF. This patient was seen by Chandan Light PA-C under the supervision of Dr. Chris <Stacy Chris - Last Filed: 08/15/19 21:05> Vitals/I&O's: Vital Signs Temp Pulse Resp BP Pulse Ox 97.4 F L 98 18 114/57 L 93 08/15/19 20:25 08/15/19 20:33 08/15/19 20:33 08/15/19 20:25 08/15/19 20:33 Oxygen Flow Rate (L/min) 5 Oxygen Delivery Method Bi-pap Weight: 96.2 kg Body Mass Index (BMI) 36.9 Finger Stick Blood Glucose 134 Intake and Output for Last 24 Hours 08/13/19 08/14/19 08/15/19 23:59 23:59 23:59 Intake Total 2485.42 / 2485.42 200 / 200 1162 / 1162 Output Total 575 / 575 175 / 175 350 / 350 Balance 1910.42 / 1910.42 25 / 25 812 / 812 Microbiology Past 72 Hours 08/11/19 13:21 Bone - Buttock Gram Stain - Final 08/11/19 13:21 Bone - Buttock Wound Culture - Final Meth. resistant Staph. aureus Corynebacterium striatum 08/11/19 13:21 Bone - Buttock Anaerobic Culture - Preliminary Checking for anaerobes, further studies to follow. 08/09/19 06:35 Blood Culture (Wb) - Pic Blood Culture - Final No growth in 5 days. 08/13/19 23:00 Stool C. difficile GDH Antigen & Toxins - Final 08/13/19 23:00 Stool C. difficile DNA Amplification - Final 08/11/19 13:15 Tissue - Buttock Gram Stain - Final 08/11/19 13:15 Tissue - Buttock Wound Culture - Final Meth. resistant Staph. aureus Presumptive C albicans 08/11/19 13:15 Tissue - Buttock Anaerobic Culture - Final No anaerobic bacteria isolated. 08/09/19 Unknown Wound - Buttock Gram Stain - Final 08/09/19 Unknown Wound - Buttock Wound Culture - Final Meth. resistant Staph. aureus Gram positive arik 08/11/19 06:40 Blood Culture (Wb) - Left Wrist Blood Culture - Preliminary No growth in 48 hours. 08/11/19 06:55 Blood Culture (Wb) - Left Wrist Blood Culture - Preliminary No growth in 48 hours. Laboratory Results 08/15/19 00:03: POC Glucose 114 H 08/15/19 05:41: POC Glucose 91 08/15/19 06:11: Random Vancomycin 18.5 H 08/15/19 06:11: WBC 37.0 H*, RBC 3.12 L, Hgb 10.0 L, Hct 33.3 L, MCV 106.7 H, MCH 32.1 H, MCHC 30.0 L, RDW Std Deviation 68.3 H, RDW Coeff of Harper 17.4 H, Plt Count 693 H, MPV 9.2, Neut % (Auto) Not Reportable, Absolute Neuts (auto) 26.6 H, Absolute Lymphs (auto) 6.28 H, Total Counted 100, Neutrophils % (Manual) 64, Band Neutrophils % 8 H, Lymphocytes % (Manual) 17 L, Monocytes % (Manual) 5, Eosinophils % (Manual) 2, Metamyelocytes % 2 H, Myelocytes % 2 H, Diff Path Review Reviewed 08/15/19 06:11: Sodium 153 H, Potassium 3.9, Chloride 130 H*, Carbon Dioxide 18.0 L, Anion Gap 5, BUN 37 H, Creatinine 3.61 H, Estim Creat Clear Calc 12.62, Est GFR (MDRD) Af Amer 16 L, Est GFR (MDRD) Non-Af 14 L, BUN/Creatinine Ratio 10.2, Glucose 114 H, Calcium 8.7 08/15/19 11:08: POC Glucose 119 H 08/15/19 12:14: Sodium 152 H, Potassium 3.8, Chloride 129 H*, Carbon Dioxide 17.0 L, Anion Gap 6, BUN 40 H, Creatinine 3.83 H, Estim Creat Clear Calc 11.89, Est GFR (MDRD) Af Amer 15 L, Est GFR (MDRD) Non-Af 13 L, BUN/Creatinine Ratio 10.4, Glucose 137 H, Calcium 8.5 08/15/19 13:03: Specimen Type ART, Sample Site L Radial, pH 7.28 L, Bicarbonate Actual 16.0 L, POC Total CO2 17, Base Excess -11 L, O2 Saturation 82 L, ABG pCO2 33.8 L, ABG pO2 52 L, Ramy Test POS, O2 Delivery Device Nasal Can, Liter Flow 5.0, Blood Gas Notified Whom ICU MD, Blood Gas Notified Time 1301 08/15/19 15:46: Specimen Type ART, Sample Site R Radial, pH 7.29 L, Bicarbonate Actual 16.4 L, POC Total CO2 17, Base Excess -10 L, O2 Saturation 90 L, O2 % 30, ABG pCO2 34.4 L, ABG pO2 65 L, Ramy Test POS, Respiration Rate 14, O2 Delivery Device Bi / C PAP, EPAP 8, Blood Gas Notified Whom RN, Blood Gas Notified Time 1546 08/15/19 17:01: POC Glucose 102 Current Medications Acetaminophen (Tylenol) 650 mg PO Q6H PRN PRN PRN Reason: Pain Score 1-3/Temp > 100.7 F Acetaminophen (Tylenol) 650 mg RECTAL Q4H PRN PRN PRN Reason: Pain Score 1-3/Temp > 100.7 F Albuterol Sulfate (Ventolin Aerosols) 2.5 mg INHALATION Q2H PRN PRN PRN Reason: SOB/Wheezing Allopurinol (Zyloprim) 300 mg PO DAILY [facility] Last Admin: 08/15/19 09:27 Dose: Not Given Documented by: Aspirin (Ecotrin) 81 mg PO QHS [facility] Last Admin: 08/15/19 20:28 Dose: Not Given Documented by: Atorvastatin Calcium (Lipitor) 80 mg PO QHS [facility] Last Admin: 08/15/19 20:28 Dose: Not Given Documented by: Cholecalciferol (Vitamin D) 5,000 unit PO DAILY [facility] Last Admin: 08/15/19 09:27 Dose: Not Given Documented by: Cyanocobalamin (Vitamin B12) 1,000 mcg PO DAILY [facility] Last Admin: 08/15/19 09:27 Dose: Not Given Documented by: Glucagon () 1 mg IM .X1 PRN PRN Reason: Hypoglycemia Dextrose (Dextrose 10%-Water) 250 mls @ 999 mls/hr IV .Q16M PRN; Protocol PRN Reason: HYPOGLYCEMIA Sodium Chloride () 250 mls @ 15 mls/hr IV .[id number] PRN PRN Reason: Saline Flush Sodium Chloride () 250 mls @ 15 mls/hr IV .[id number] PRN PRN Reason: Additional IVPB Infusion Dextrose () 1,000 mls @ 100 mls/hr IV .Q10H [facility] Last Admin: 08/15/19 18:55 Dose: 100 mls/hr Documented by: Cefepime HCl 1 gm/ Sodium (Chloride) 50 mls @ 100 mls/hr IV Q24 [facility] Daptomycin 600 mg/ Sodium (Chloride) 62 mls @ 100 mls/hr IV Q48H [facility] Last Infusion: 08/15/19 15:02 Dose: Infused Documented by: Insulin Human Lispro (Humalog Kwikpen (Bkc)) 0 unit SC Q6 [facility]; Protocol Last Admin: 08/15/19 17:07 Dose: Not Given Documented by: Levothyroxine Sodium (Synthroid) 75 mcg PO DAILY@0600 [facility] Last Admin: 08/15/19 05:43 Dose: Not Given Documented by: Metoprolol Tartrate (Lopressor (Beta Armani)) 25 mg PO BID [facility] Last Admin: 08/15/19 20:29 Dose: Not Given Documented by: Metronidazole (Flagyl) 500 mg PO TIDCM [facility] Last Admin: 08/15/19 15:52 Dose: Not Given Documented by: Nutritional Formula ([place] - [place] Flavor) 1 packet PO BIDCM [facility] Last Admin: 08/15/19 15:52 Dose: Not Given Documented by: Prochlorperazine Edisylate (Compazine Iv) 5 mg IV Q4H PRN PRN PRN Reason: Breakthrough Nausea/Vomiting Last Admin: 08/10/19 10:33 Dose: 5 mg Documented by: Sodium Chloride () 10 - 40 ml IV UD PRN PRN Reason: Open End PICC Flush Last Admin: 08/15/19 09:21 Dose: 10 ml Documented by: Sodium Chloride (0.9% Nacl (Sterile) Posiflush) 10 - 40 ml IV UD PRN PRN Reason: Port access or dressing change Sodium Hypochlorite (Dakins Solution 0.25% (1/2 Strength)) 1 applic TOPICAL BID [facility]; Protocol Last Admin: 08/15/19 20:28 Dose: Not Given Documented by: Vancomycin HCl () 125 mg PO Q6 [facility] Last Admin: 08/15/19 16:56 Dose: Not Given Documented by: STROKE Vital Signs/Narrative: Vital Signs Temp Pulse Resp BP Pulse Ox 08/15/19 20:33 98 18 93 08/15/19 20:25 97.4 F L 97 16 114/57 L 94 08/15/19 19:00 97 08/15/19 17:15 100 16 92 Assessment/Plan This patient was seen in conjunction with VILLA Hansen. I have independently interviewed and examined the patient and reviewed pertinent historical, laboratory, and other data. Please refer to VILLA Hansen note for his patient's presentation, findings, and recommendations. I have reviewed and his note and concur with his documentation Patient was seen and examined. She is very lethargic, moves upper extremities less purposely. Unable to arouse patient. and daughter at the bedside. Discussed the status of her conditions with all comorbidities. Addressed code status - and daughter discussed among themselves and later wanted her to be full code. Physical Exam: Gen: Lethargic, pale, not jaundiced CVS:HS I +II, regular, no murmurs RESP: Diminished at lung bases GI: BS present and normal, soft, nontender, no palpable organs, wound vac on EXT:Bilateral pedal edema +1, in BIMAL delgado ASSESSMENT: 1. Severe sepsis due to MRSA, GNR stage IV pressure ulcer 2. Postop day 3 status post excision infected necrotizing right buttock and sacral pressure sore, Stage IV, with partial ostectomy for osteomyelitis. 3. Acute metabolic encephalopathy 4. Anxiety/depression 5. Hypertension 6. Hyperlipidemia 7. Hypothyroidism Plan: Increase d5w to 100mls/hr Repeat BMP at 12noon, slighly better Na but worse Cr Discussed with critical care and family; will have low threshold to transfer to ICU if pt detriorates Patient will be on AVAPS Patient will be re-assessed in am Code Visit Inpatient E&M: 84402 Subs Hosp L3
[2019-08-15 12:52] LABS: Anion Gap 6 (5-15); BUN 40 mg/dL (7-18); BUN/Creat Ratio 10.4 RATIO (10-20); Calcium,Total 8.5 mg/dL (8.5-10.1); Chloride 129 mmol/L (98-107); Creatinine, Serum 3.83 mg/dL (0.55-1.02); EST Glomerular Filtration Rate 13 mL/min (>60); Est Glom Filt Rate - Afr Amer 15 mL/min (>60); Estimated Creatinine Clearance 11.89 ml/min; Glucose 137 mg/dL (74-106); Potassium 3.8 mmol/L (3.5-5.1); Sodium Level 152 mmol/L (136-145)
[2019-08-15 13:05] LABS: Allen Test POS; Base Excess -11 mmol/L (-2 to +2); Blood Gas Specimen Type ART; O2 Delivery Device Nasal Can; PO2 52 mmHG (75-100); SITE L Radial; SO2 82 % (95-99); Time Given 1301; Total Carbon Dioxide 17 mmol/L; pCO2 33.8 mmHg (35-45); pH 7.28 (7.35-7.45)
--- NOTE | 2019-08-15 13:41 | CASEMGMT ---
Patient was approved to go to TCU, however patient is not ready for discharge today. Green sheet on the chart if patient is ready over the weekend. Saundra BLANCO
--- NOTE | 2019-08-15 13:53 | CPS ---
TCO2=[id number]
[2019-08-15 14:51] LABS: Pathologist Review Reviewed
--- NOTE | 2019-08-15 15:35 | PN.RENAL_ITS ---
Patient Problems: Active and Suspected Problems ILIANA (acute kidney injury) (Acute) Subjective: lethargic today poor response - Physical Exam Vitals/I&O's: Vital Signs Temp Pulse Resp BP Pulse Ox 97.6 F L 90 16 132/61 H 94 08/15/19 15:00 08/15/19 15:00 08/15/19 15:00 08/15/19 15:00 08/15/19 15:00 Oxygen Flow Rate (L/min) 5 Oxygen Delivery Method Bi-pap Weight: 96.2 kg Body Mass Index (BMI) 36.9 Finger Stick Blood Glucose 134 Intake and Output for Last 24 Hours 08/13/19 08/14/19 08/15/19 23:59 23:59 23:59 Intake Total 2485.42 / 2485.42 200 / 200 162 / 162 Output Total 575 / 575 175 / 175 275 / 275 Balance 1910.42 / 1909.42 25 / -113 / -113 HEENT: Atraumatic, PERRLA, EOMI, Normocephalic Neck: Supple, No JVD, Negative Carotid Bruits Lungs: Clear to auscultation, Normal air movement Cardiovascular: Regular rate, No murmurs Abdomen: Bowel Sounds Present, Soft, Non Tender Extremities: No edema, Capillary Refill Less than 3 Seconds Skin: No rashes, No breakdown Musculoskeletal: No Tenderness to Palpation of Joints or Extremities Neurological: Cranial nerves II-XII grossly intact Psych/Mental Status: Normal Affect, Appropriate Microbiology Past 72 Hours 08/11/19 13:21 Bone - Buttock Gram Stain - Final 08/11/19 13:21 Bone - Buttock Wound Culture - Final Meth. resistant Staph. aureus Corynebacterium striatum 08/11/19 13:21 Bone - Buttock Anaerobic Culture - Preliminary Checking for anaerobes, further studies to follow. 08/09/19 06:35 Blood Culture (Wb) - Pic Blood Culture - Final No growth in 5 days. 08/13/19 23:00 Stool C. difficile GDH Antigen & Toxins - Final 08/13/19 23:00 Stool C. difficile DNA Amplification - Final 08/11/19 13:15 Tissue - Buttock Gram Stain - Final 08/11/19 13:15 Tissue - Buttock Wound Culture - Final Meth. resistant Staph. aureus Presumptive C albicans 08/11/19 13:15 Tissue - Buttock Anaerobic Culture - Final No anaerobic bacteria isolated. 08/09/19 Unknown Wound - Buttock Gram Stain - Final 08/09/19 Unknown Wound - Buttock Wound Culture - Final Meth. resistant Staph. aureus Gram positive arik 08/11/19 06:40 Blood Culture (Wb) - Left Wrist Blood Culture - Preliminary No growth in 48 hours. 08/11/19 06:55 Blood Culture (Wb) - Left Wrist Blood Culture - Preliminary No growth in 48 hours. 08/10/19 04:20 Urine Catheter - Martinez Urine Culture - Final Presumptive C albicans Laboratory Results 08/14/19 17:08: POC Glucose 91 08/15/19 00:03: POC Glucose 114 H 08/15/19 05:41: POC Glucose 91 08/15/19 06:11: Random Vancomycin 18.5 H 08/15/19 06:11: WBC 37.0 H*, RBC 3.12 L, Hgb 10.0 L, Hct 33.3 L, MCV 106.7 H, MCH 32.1 H, MCHC 30.0 L, RDW Std Deviation 68.3 H, RDW Coeff of Harper 17.4 H, Plt Count 693 H, MPV 9.2, Neut % (Auto) Not Reportable, Absolute Neuts (auto) 26.6 H , Absolute Lymphs (auto) 6.28 H, Total Counted 100, Neutrophils % (Manual) 64, Band Neutrophils % 8 H, Lymphocytes % (Manual) 17 L, Monocytes % (Manual) 5, Eosinophils % (Manual) 2, Metamyelocytes % 2 H, Myelocytes % 2 H, Diff Path Review Reviewed 08/15/19 06:11: Sodium 153 H, Potassium 3.9, Chloride 130 H*, Carbon Dioxide 18.0 L, Anion Gap 5, BUN 37 H, Creatinine 3.61 H, Estim Creat Clear Calc 12.62, Est GFR (MDRD) Af Amer 16 L, Est GFR (MDRD) Non-Af 14 L, BUN/Creatinine Ratio 10.2, Glucose 114 H, Calcium 8.7 08/15/19 11:08: POC Glucose 119 H 08/15/19 12:14: Sodium 152 H, Potassium 3.8, Chloride 129 H*, Carbon Dioxide 17.0 L, Anion Gap 6, BUN 40 H, Creatinine 3.83 H, Estim Creat Clear Calc 11.89, Est GFR (MDRD) Af Amer 15 L, Est GFR (MDRD) Non-Af 13 L, BUN/Creatinine Ratio 10.4, Glucose 137 H, Calcium 8.5 08/15/19 13:03: Specimen Type ART, Sample Site L Radial, pH 7.28 L, Bicarbonate Actual 16.0 L, POC Total CO2 17, Base Excess -11 L, O2 Saturation 82 L, ABG pCO2 33.8 L, ABG pO2 52 L, Ramy Test POS, O2 Delivery Device Nasal Can, Liter Flow 5.0, Blood Gas Notified Whom ICU MD, Blood Gas Notified Time 1301 Current Medications Acetaminophen (Tylenol) 650 mg PO Q6H PRN PRN PRN Reason: Pain Score 1-3/Temp > 100.7 F Acetaminophen (Tylenol) 650 mg RECTAL Q4H PRN PRN PRN Reason: Pain Score 1-3/Temp > 100.7 F Albuterol Sulfate (Ventolin Aerosols) 2.5 mg INHALATION Q2H PRN PRN PRN Reason: SOB/Wheezing Allopurinol (Zyloprim) 300 mg PO DAILY [facility] Last Admin: 08/15/19 09:27 Dose: Not Given Documented by: Aspirin (Ecotrin) 81 mg PO QHS [facility] Last Admin: 08/14/19 21:35 Dose: 81 mg Documented by: Atorvastatin Calcium (Lipitor) 80 mg PO QHS [facility] Last Admin: 08/14/19 21:36 Dose: 80 mg Documented by: Cholecalciferol (Vitamin D) 5,000 unit PO DAILY [facility] Last Admin: 08/15/19 09:27 Dose: Not Given Documented by: Cyanocobalamin (Vitamin B12) 1,000 mcg PO DAILY [facility] Last Admin: 08/15/19 09:27 Dose: Not Given Documented by: Glucagon () 1 mg IM .X1 PRN PRN Reason: Hypoglycemia Dextrose (Dextrose 10%-Water) 250 mls @ 999 mls/hr IV .Q16M PRN; Protocol PRN Reason: HYPOGLYCEMIA Sodium Chloride () 250 mls @ 15 mls/hr IV .[id number] PRN PRN Reason: Saline Flush Sodium Chloride () 250 mls @ 15 mls/hr IV .[id number] PRN PRN Reason: Additional IVPB Infusion Dextrose () 1,000 mls @ 100 mls/hr IV .Q10H [facility] Last Admin: 08/15/19 08:48 Dose: 100 mls/hr Documented by: Cefepime HCl 1 gm/ Sodium (Chloride) 50 mls @ 100 mls/hr IV Q24 [facility] Daptomycin 600 mg/ Sodium (Chloride) 62 mls @ 100 mls/hr IV Q48H [facility] Last Infusion: 08/15/19 15:02 Dose: Infused Documented by: Insulin Human Lispro (Humalog Kwikpen (Bkc)) 0 unit SC Q6 [facility]; Protocol Last Admin: 08/15/19 12:08 Dose: Not Given Documented by: Levothyroxine Sodium (Synthroid) 75 mcg PO DAILY@0600 [facility] Last Admin: 08/15/19 05:43 Dose: Not Given Documented by: Metoprolol Tartrate (Lopressor (Beta Armani)) 25 mg PO BID [facility] Last Admin: 08/15/19 09:27 Dose: Not Given Documented by: Metronidazole (Flagyl) 500 mg PO TIDCM [facility] Last Admin: 08/15/19 12:08 Dose: Not Given Documented by: Nutritional Formula ([place] - [place] Flavor) 1 packet PO BIDCM [facility] Last Admin: 08/15/19 08:49 Dose: Not Given Documented by: Prochlorperazine Edisylate (Compazine Iv) 5 mg IV Q4H PRN PRN PRN Reason: Breakthrough Nausea/Vomiting Last Admin: 08/10/19 10:33 Dose: 5 mg Documented by: Sodium Chloride () 10 - 40 ml IV UD PRN PRN Reason: Open End PICC Flush Last Admin: 08/15/19 09:21 Dose: 10 ml Documented by: Sodium Chloride (0.9% Nacl (Sterile) Posiflush) 10 - 40 ml IV UD PRN PRN Reason: Port access or dressing change Sodium Hypochlorite (Dakins Solution 0.25% (1/2 Strength)) 1 applic TOPICAL BID [facility]; Protocol Last Admin: 08/15/19 09:26 Dose: Not Given Documented by: Vancomycin HCl () 125 mg PO Q6 [facility] Medical Necessity - Tobacco Use Smoking Status: Former smoker Tobacco Use: Vapor Assessment/Plan All Active Problems ILIANA (acute kidney injury) (Acute) Fecal soiling due to fecal incontinence (Acute) ILIANA. normal baseline. now worsening. patient has severe sepsis likely related to sacral decubitus ulcer. renal US without hydronephrosis UA is dirty but she has a martinez and urine looks muddy Did receive vanco with somewhat higher trough levels no contrast studies BP is better ILIANA is likely ATN due to vanco, sepsis. urine output is present no acute indications for [employer] vanco stopped Hypernatremia. started D5W today Acidosis. mild. hyperchloremic. will give bicarbonate once sodium better. dw hospitalist service
[2019-08-15 15:51] LABS: Allen Test POS; Base Excess -10 mmol/L (-2 to +2); Bicarbonate 16.4 mmol/L (22-26); Blood Gas Specimen Type ART; EPAP 8; FI02 30; PO2 65 mmHG (75-100); RR 14; SITE R Radial; SO2 90 % (95-99); Time Given 1546; Total Carbon Dioxide 17 mmol/L; pCO2 34.4 mmHg (35-45); pH 7.29 (7.35-7.45)
[2019-08-15 17:06] LABS: Bedside Glucose 102 mg/dL (70-110)
[2019-08-16] VITALS (21 sets, daily range): BP systolic 94–126; BP diastolic 50–78; PULSE 96–124; RESP 14–26; TEMP 36.3–37.1; O2SAT 90–97
[2019-08-16 00:16] LABS: Bedside Glucose 129 mg/dL (70-110)
[2019-08-16] MEDS: Insulin Lispro 100 UNIT/ML INSULN.PEN SC ×2 (05:58→23:08)
[2019-08-16 06:05] LABS: Bedside Glucose 158 mg/dL (70-110)
[2019-08-16 06:13] LABS: Hematocrit 25.6 % (37-47); Hemoglobin 8.9 g/dL (12.0-15.0); Mean Corp Hgb Conc 34.8 g/dL (32-36); Mean Corpuscular Hgb 35.2 pg (27.0-32.0); Mean Corpuscular Volume 101.2 fL (81-99); Mean Platelet Vol. 9.5 fl (6.2-12.0); POSITIVE COUNT YES; POSITIVE MORPHOLOGY YES; Platelet Count 286 K/mm3 (150-450); RBC Distribution Width CV 20.8 % (11.6-14.6); RBC Distribution Width SD 56.7 fl (35.1-43.9); Red Blood Count 2.53 M/mm3 (4.2-5.4); White Blood Count 13.9 K/mm3 (4.4-11.0)
[2019-08-16 06:32] LABS: Albumin, Serum 1.9 g/dL (3.2-5.0); BUN 28 mg/dL (7-18); BUN/Creat Ratio 9.8 RATIO (10-20); Calcium,Total 8.1 mg/dL (8.5-10.1); Chloride 120 mmol/L (98-107); Creatinine, Serum 2.86 mg/dL (0.55-1.02); EST Glomerular Filtration Rate 18 mL/min (>60); Est Glom Filt Rate - Afr Amer 21 mL/min (>60); Estimated Creatinine Clearance 15.92 ml/min; Glucose 129 mg/dL (74-106); Phosphorus 3.5 mg/dL (2.5-4.9); Potassium 3.7 mmol/L (3.5-5.1); Sodium Level 144 mmol/L (136-145)
[2019-08-16 06:43] LABS: CPK Total, Creatine Kinase 104 U/L (26-192)
[2019-08-16 06:54] LABS: Differential Indicated MANUAL DIFF
[2019-08-16 07:03] LABS: Eosinophil 6 % (0-5); Lymphocyte 19 % (19-41); Metamyelocyte 1 % (0-1); Monocyte 6 % (0-10); Myelocyte 5 (0-0); Neutrophil-Band 3 % (0-5); Neutrophil-Segmented 60 % (47-70); Nucleated Red Bld Cells,Manual 1 % (0-5); Total Cells Counted 100 (MANUAL DIFF)
[2019-08-16 07:05] LABS: Absolute Lymphocyte Count 2.63 X10^3/uL (0.83-4.51); Absolute Neutrophil Count 8.7 X10^3/uL (2.0-7.7); Anisocytosis 1+; Polychromasia RARE
--- NOTE | 2019-08-16 07:25 | PN_ITS ---
Patient Problems: Active and Suspected Problems ILIANA (acute kidney injury) (Acute) Subjective: Patient did okay overnight. No acute issues were reported. Patient has been on BiPAP throughout the evening. Patient does have intermittent agitation, but appears to be tolerating it well. No decompensation in hemodynamics reported. Some tachycardia associated with agitation noted - Physical Exam Vitals/I&O's: Vital Signs Temp Pulse Resp BP Pulse Ox 37.1 C 99 16 123/65 H 93 08/16/19 02:15 08/16/19 03:30 08/16/19 03:30 08/16/19 02:15 08/16/19 03:30 Oxygen Flow Rate (L/min) 5 Oxygen Delivery Method Bi-pap Weight: 97.6 kg Body Mass Index (BMI) 36.9 Finger Stick Blood Glucose 134 Intake and Output for Last 24 Hours 08/14/19 08/15/19 08/16/19 23:59 23:59 23:59 Intake Total 200 / 200 1668.67 / 1668.67 426.67 / 426.67 Output Total 175 / 175 400 / 400 50 / 50 Balance 25 / 25 1268.67 / 1268.67 376.67 / 376.67 General: - - RASS -2. Morbidly obese. Not really following commands. HEENT: Atraumatic, PERRLA, EOMI, Normocephalic, - - Slight scleral injection without icterus Oral: No Gingival or Mucosal Lesions/ Ulcerations, Dry Mucosa Neck: Supple, No JVD, No Nodes, Trachea Midline Lungs: No rhonchi, No wheeze, No rales, Diminished, - - Fair BiPAP synchrony. Cardiovascular: Normal S1, Normal S2, No murmurs, No rub noted, No Gallop, Tachycardic Abdomen: Bowel Sounds Present, Soft, Non Tender, Obese Extremities: No cyanosis, Capillary Refill Less than 3 Seconds, Edema Skin: - - No change compared to previous Musculoskeletal: No Tenderness to Palpation of Joints or Extremities Lymphatic: No Cervical, Supraclavicular, or Inguinal Adenopathy Neurological: Cranial nerves II-XII grossly intact, Neuro grossly intact Psych/Mental Status: Flat Affect, Impulsive Microbiology Past 72 Hours 08/11/19 13:21 Bone - Buttock Gram Stain - Final 08/11/19 13:21 Bone - Buttock Wound Culture - Final Meth. resistant Staph. aureus Corynebacterium striatum 08/11/19 13:21 Bone - Buttock Anaerobic Culture - Preliminary Checking for anaerobes, further studies to follow. 08/09/19 06:35 Blood Culture (Wb) - Pic Blood Culture - Final No growth in 5 days. 08/13/19 23:00 Stool C. difficile GDH Antigen & Toxins - Final 08/13/19 23:00 Stool C. difficile DNA Amplification - Final 08/11/19 13:15 Tissue - Buttock Gram Stain - Final 08/11/19 13:15 Tissue - Buttock Wound Culture - Final Meth. resistant Staph. aureus Presumptive C albicans 08/11/19 13:15 Tissue - Buttock Anaerobic Culture - Final No anaerobic bacteria isolated. 08/09/19 Unknown Wound - Buttock Gram Stain - Final 08/09/19 Unknown Wound - Buttock Wound Culture - Final Meth. resistant Staph. aureus Gram positive arik 08/11/19 06:40 Blood Culture (Wb) - Left Wrist Blood Culture - Preliminary No growth in 48 hours. 08/11/19 06:55 Blood Culture (Wb) - Left Wrist Blood Culture - Preliminary No growth in 48 hours. Laboratory Results 08/15/19 06:11: Diff Path Review Reviewed 08/15/19 06:11: Sodium 153 H, Potassium 3.9, Chloride 130 H*, Carbon Dioxide 18.0 L, Anion Gap 5, BUN 37 H, Creatinine 3.61 H, Estim Creat Clear Calc 12.62, Est GFR (MDRD) Af Amer 16 L, Est GFR (MDRD) Non-Af 14 L, BUN/Creatinine Ratio 10.2, Glucose 114 H, Calcium 8.7 08/15/19 11:08: POC Glucose 119 H 08/15/19 12:14: Sodium 152 H, Potassium 3.8, Chloride 129 H*, Carbon Dioxide 17.0 L, Anion Gap 6, BUN 40 H, Creatinine 3.83 H, Estim Creat Clear Calc 11.89, Est GFR (MDRD) Af Amer 15 L, Est GFR (MDRD) Non-Af 13 L, BUN/Creatinine Ratio 10.4, Glucose 137 H, Calcium 8.5 08/15/19 13:03: Specimen Type ART, Sample Site L Radial, pH 7.28 L, Bicarbonate Actual 16.0 L, POC Total CO2 17, Base Excess -11 L, O2 Saturation 82 L, ABG pCO2 33.8 L, ABG pO2 52 L, Ramy Test POS, O2 Delivery Device Nasal Can, Liter Flow 5.0, Blood Gas Notified Whom ICU MD, Blood Gas Notified Time 1301 08/15/19 15:46: Specimen Type ART, Sample Site R Radial, pH 7.29 L, Bicarbonate Actual 16.4 L, POC Total CO2 17, Base Excess -10 L, O2 Saturation 90 L, O2 % 30, ABG pCO2 34.4 L, ABG pO2 65 L, Ramy Test POS, Respiration Rate 14, O2 Delivery Device Bi / C PAP, EPAP 8, Blood Gas Notified Whom RN, Blood Gas Notified Time 1546 08/15/19 17:01: POC Glucose 102 08/16/19 00:10: POC Glucose 129 H 08/16/19 05:44: WBC 13.9 H, RBC 2.53 L, Hgb 8.9 L, Hct 25.6 L, MCV 101.2 H D, MCH 35.2 H, MCHC 34.8, RDW Std Deviation 56.7 H, RDW Coeff of Harper 20.8 H, Plt Count 286, MPV 9.5, Neut % (Auto) Not Reportable, Absolute Neuts (auto) 8.7 H, Absolute Lymphs (auto) 2.63, Total Counted 100, Neutrophils % (Manual) 60, Band Neutrophils % 3, Lymphocytes % (Manual) 19, Monocytes % (Manual) 6, Eosinophils % (Manual) 6 H, Metamyelocytes % 1, Myelocytes % 5 H, Nucleated RBCs/100 WBC 1, Diff Path Review May foll, Polychromasia RARE, Anisocytosis 1+ 08/16/19 05:44: Sodium 144, Potassium 3.7, Chloride 120 H, Carbon Dioxide 18.0 L , BUN 28 H, Creatinine 2.86 H, Estim Creat Clear Calc 15.92, Est GFR (MDRD) Af Amer 21 L, Est GFR (MDRD) Non-Af 18 L, BUN/Creatinine Ratio 9.8 L, Glucose 129 H , Calcium 8.1 L, Phosphorus 3.5, Albumin 1.9 L 08/16/19 05:44: Total Creatine Kinase 104 08/16/19 05:54: POC Glucose 158 H Current Medications Acetaminophen (Tylenol) 650 mg PO Q6H PRN PRN PRN Reason: Pain Score 1-3/Temp > 100.7 F Acetaminophen (Tylenol) 650 mg RECTAL Q4H PRN PRN PRN Reason: Pain Score 1-3/Temp > 100.7 F Albuterol Sulfate (Ventolin Aerosols) 2.5 mg INHALATION Q2H PRN PRN PRN Reason: SOB/Wheezing Allopurinol (Zyloprim) 300 mg PO DAILY [facility] Last Admin: 08/15/19 09:27 Dose: Not Given Documented by: Aspirin (Ecotrin) 81 mg PO QHS [facility] Last Admin: 08/15/19 20:28 Dose: Not Given Documented by: Atorvastatin Calcium (Lipitor) 80 mg PO QHS [facility] Last Admin: 08/15/19 20:28 Dose: Not Given Documented by: Cholecalciferol (Vitamin D) 5,000 unit PO DAILY [facility] Last Admin: 08/15/19 09:27 Dose: Not Given Documented by: Cyanocobalamin (Vitamin B12) 1,000 mcg PO DAILY [facility] Last Admin: 08/15/19 09:27 Dose: Not Given Documented by: Glucagon () 1 mg IM .X1 PRN PRN Reason: Hypoglycemia Dextrose (Dextrose 10%-Water) 250 mls @ 999 mls/hr IV .Q16M PRN; Protocol PRN Reason: HYPOGLYCEMIA Sodium Chloride () 250 mls @ 15 mls/hr IV .[id number] PRN PRN Reason: Saline Flush Sodium Chloride () 250 mls @ 15 mls/hr IV .[id number] PRN PRN Reason: Additional IVPB Infusion Dextrose () 1,000 mls @ 50 mls/hr IV .Q20H [facility] Last Admin: 08/16/19 04:15 Dose: 100 mls/hr Documented by: Cefepime HCl 1 gm/ Sodium (Chloride) 50 mls @ 100 mls/hr IV Q24 [facility] Daptomycin 600 mg/ Sodium (Chloride) 62 mls @ 100 mls/hr IV Q48H [facility] Last Infusion: 08/15/19 15:02 Dose: Infused Documented by: Insulin Human Lispro (Humalog Kwikpen (Bkc)) 0 unit SC Q6 [facility]; Protocol Last Admin: 08/16/19 05:58 Dose: 1 unit Documented by: Levothyroxine Sodium (Synthroid) 75 mcg PO DAILY@0600 [facility] Last Admin: 08/16/19 05:26 Dose: Not Given Documented by: Metoprolol Tartrate (Lopressor (Beta Armani)) 25 mg PO BID [facility] Last Admin: 08/15/19 20:29 Dose: Not Given Documented by: Metronidazole (Flagyl) 500 mg PO TIDCM [facility] Last Admin: 08/15/19 15:52 Dose: Not Given Documented by: Nutritional Formula ([place] Flavor) [facility] Last Admin: 08/15/19 15:52 Dose: Not Given Documented by: Prochlorperazine Edisylate (Compazine Iv) 5 mg IV Q4H PRN PRN PRN Reason: Breakthrough Nausea/Vomiting Last Admin: 08/10/19 10:33 Dose: 5 mg Documented by: Sodium Chloride () 10 - 40 ml IV UD PRN PRN Reason: Open End PICC Flush Last Admin: 08/15/19 09:21 Dose: 10 ml Documented by: Sodium Chloride (0.9% Nacl (Sterile) Posiflush) 10 - 40 ml IV UD PRN PRN Reason: Port access or dressing change Sodium Hypochlorite (Dakins Solution 0.25% (1/2 Strength)) 1 applic TOPICAL BID [facility]; Protocol Last Admin: 08/15/19 20:28 Dose: Not Given Documented by: Vancomycin HCl () 125 mg PO Q6 [facility] Last Admin: 08/16/19 05:26 Dose: Not Given Documented by: Medical Necessity - Tobacco Use Smoking Status: Former smoker Tobacco Use: Vapor Assessment/Plan All Active Problems ILIANA (acute kidney injury) (Acute) Fecal soiling due to fecal incontinence (Acute) RECOMMENDATIONS: 1. Continue antibiotics per infectious disease. 2. Continue plastic surgery evaluation. Continue local wound care. Possible diverting colostomy 3. Wean supplemental oxygen to maintain saturations at or above 90%. 4. Continue transcutaneous CO2 monitoring 5. Decrease free water administration 6. Okay to allow for BiPAP breaks as tolerated. Should be on BiPAP with any sleep IMPRESSIONS: 1. 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 Cultures are currently showing MRSA and Corynebacterium. Patient is on cefepime, which should cover reported organisms. Patient has been transitioned to daptomycin. Patient may require diverting colostomy. Blood pressure has been stable and leukocytosis is significantly improved today compared to yesterday 2. Encephalopathy Patient continues to be confused. Patient is now significantly lethargic. Clinical suspicion for multifactorial etiology including renal failure, retention of medications and CO2 retention. Continue transcutaneous CO2 monitoring. Continue to hold baseline psychiatric medications. Antibiotics will be continued to address her infectious etiologies. 3. Acute on chronic hypercarbic respiratory failure?obstructive sleep apnea Repeat ABG showed good response to AVAPS therapy. This should be continued with sleep, sedation or as rescue during the day if necessary. Patient with significant non-anion gap hyperchloremic metabolic acidosis, which will increase respiratory demands. Patient has improved overnight. Would continue free water, but at lower dosing. Still oxygenating okay from a respiratory standpoint, but development of pulmonary edema will be a concern. 4. History of bipolar disorder/diabetes mellitus/hypertension/hyperlipidemia/obesity/chronic kidney disease Complicates care, management, recovery and prognosis. Continue home medications as indicated. Code Visit Inpatient E&M: 42075 Subs Hosp L3
[2019-08-16 09:34] LABS: Magnesium 2.2 mg/dL (1.6-2.6)
[2019-08-16] MEDS: Dext 5%-0.45% NS 1,000 ML 75 ML IV (10:38)
[2019-08-16] MEDS: 0.9% Saline Lock 10 ML Syringe IV (10:40)
[2019-08-16] MEDS: metroNIDAZOLE 500 MG/100 ML BAG 100 MG IV ×3 (11:59→23:00)
--- NOTE | 2019-08-16 12:37 | PN_ITS ---
<Chandan Light - Last Filed: 08/16/19 12:37> Patient Problems: Active and Suspected Problems ILIANA (acute kidney injury) (Acute) Reason for Visit: altered mental status Subjective: pt still lethargic, not answering questions. Per she was waking up and moaning this AM however she does not talk still. She did not wake up for me. Labs are improving. Vitals/I&O's: Vital Signs Temp Pulse Resp BP Pulse Ox 97.3 F L 110 H 16 123/61 H 96 08/16/19 11:34 08/16/19 11:34 08/16/19 11:34 08/16/19 11:34 08/16/19 11:34 Oxygen Flow Rate (L/min) 6 Oxygen Delivery Method Bi-pap Weight: 215 lb 2.738 oz Body Mass Index (BMI) 36.9 Finger Stick Blood Glucose 134 Intake and Output for Last 24 Hours 08/14/19 08/15/19 08/16/19 23:59 23:59 23:59 Intake Total 200 / 200 1668.67 / 1668.67 868.34 / 868.34 Output Total 175 / 175 400 / 400 50 / 50 Balance 25 / 25 1268.67 / 1268.67 818.34 / 818.34 General: Alert, Oriented x3, Cooperative HEENT: Atraumatic, PERRLA, EOMI, Normocephalic Neck: Supple, No JVD, Negative Carotid Bruits Lungs: Clear to auscultation, Diminished Cardiovascular: Regular rate, No murmurs Abdomen: Bowel Sounds Present, Soft, Non Tender Extremities: No edema, Capillary Refill Less than 3 Seconds Skin: No rashes, No breakdown Musculoskeletal: No Tenderness to Palpation of Joints or Extremities Neurological: Cranial nerves II-XII grossly intact Psych/Mental Status: - - obtunded Microbiology Past 72 Hours 08/11/19 13:21 Bone - Buttock Gram Stain - Final 08/11/19 13:21 Bone - Buttock Wound Culture - Final Meth. resistant Staph. aureus Corynebacterium striatum 08/11/19 13:21 Bone - Buttock Anaerobic Culture - Preliminary Gram negative arik 08/11/19 06:40 Blood Culture (Wb) - Left Wrist Blood Culture - Final No growth in 5 days. 08/11/19 06:55 Blood Culture (Wb) - Left Wrist Blood Culture - Final No growth in 5 days. 08/09/19 06:35 Blood Culture (Wb) - Pic Blood Culture - Final No growth in 5 days. 08/13/19 23:00 Stool C. difficile GDH Antigen & Toxins - Final 08/13/19 23:00 Stool C. difficile DNA Amplification - Final 08/11/19 13:15 Tissue - Buttock Gram Stain - Final 08/11/19 13:15 Tissue - Buttock Wound Culture - Final Meth. resistant Staph. aureus Presumptive C albicans 08/11/19 13:15 Tissue - Buttock Anaerobic Culture - Final No anaerobic bacteria isolated. 08/09/19 Unknown Wound - Buttock Gram Stain - Final 08/09/19 Unknown Wound - Buttock Wound Culture - Final Meth. resistant Staph. aureus Gram positive arik Laboratory Results 08/15/19 06:11: Diff Path Review Reviewed 08/15/19 12:14: Sodium 152 H, Potassium 3.8, Chloride 129 H*, Carbon Dioxide 17.0 L, Anion Gap 6, BUN 40 H, Creatinine 3.83 H, Estim Creat Clear Calc 11.89, Est GFR (MDRD) Af Amer 15 L, Est GFR (MDRD) Non-Af 13 L, BUN/Creatinine Ratio 10.4, Glucose 137 H, Calcium 8.5 08/15/19 13:03: Specimen Type ART, Sample Site L Radial, pH 7.28 L, Bicarbonate Actual 16.0 L, POC Total CO2 17, Base Excess -11 L, O2 Saturation 82 L, ABG pCO2 33.8 L, ABG pO2 52 L, Ramy Test POS, O2 Delivery Device Nasal Can, Liter Flow 5.0, Blood Gas Notified Whom ICU MD, Blood Gas Notified Time 1301 08/15/19 15:46: Specimen Type ART, Sample Site R Radial, pH 7.29 L, Bicarbonate Actual 16.4 L, POC Total CO2 17, Base Excess -10 L, O2 Saturation 90 L, O2 % 30, ABG pCO2 34.4 L, ABG pO2 65 L, Ramy Test POS, Respiration Rate 14, O2 Delivery Device Bi / C PAP, EPAP 8, Blood Gas Notified Whom RN, Blood Gas Notified Time 5238 08/15/19 17:01: POC Glucose 102 08/16/19 00:10: POC Glucose 129 H 08/16/19 05:44: WBC 13.9 H, RBC 2.53 L, Hgb 8.9 L, Hct 25.6 L, MCV 101.2 H D, MCH 35.2 H, MCHC 34.8, RDW Std Deviation 56.7 H, RDW Coeff of Harper 20.8 H, Plt Count 286, MPV 9.5, Neut % (Auto) Not Reportable, Absolute Neuts (auto) 8.7 H, Absolute Lymphs (auto) 2.63, Total Counted 100, Neutrophils % (Manual) 60, Band Neutrophils % 3, Lymphocytes % (Manual) 19, Monocytes % (Manual) 6, Eosinophils % (Manual) 6 H, Metamyelocytes % 1, Myelocytes % 5 H, Nucleated RBCs/100 WBC 1, Diff Path Review May foll, Polychromasia RARE, Anisocytosis 1+ 08/16/19 05:44: Sodium 144, Potassium 3.7, Chloride 120 H, Carbon Dioxide 18.0 L , BUN 28 H, Creatinine 2.86 H, Estim Creat Clear Calc 15.92, Est GFR (MDRD) Af Amer 21 L, Est GFR (MDRD) Non-Af 18 L, BUN/Creatinine Ratio 9.8 L, Glucose 129 H , Calcium 8.1 L, Phosphorus 3.5, Albumin 1.9 L 08/16/19 05:44: Total Creatine Kinase 104 08/16/19 05:44: Magnesium 2.2 08/16/19 05:54: POC Glucose 158 H Current Medications Acetaminophen (Tylenol) 650 mg PO Q6H PRN PRN PRN Reason: Pain Score 1-3/Temp > 100.7 F Acetaminophen (Tylenol) 650 mg RECTAL Q4H PRN PRN PRN Reason: Pain Score 1-3/Temp > 100.7 F Albuterol Sulfate (Ventolin Aerosols) 2.5 mg INHALATION Q2H PRN PRN PRN Reason: SOB/Wheezing Allopurinol (Zyloprim) 300 mg PO DAILY [facility] Last Admin: 08/15/19 09:27 Dose: Not Given Documented by: Aspirin (Ecotrin) 81 mg PO QHS [facility] Last Admin: 08/15/19 20:28 Dose: Not Given Documented by: Atorvastatin Calcium (Lipitor) 80 mg PO QHS [facility] Last Admin: 08/15/19 20:28 Dose: Not Given Documented by: Calamine/Phenol (Calmoseptine Ointment) 1 applic TOPICAL 4X/DAY [facility]; Protocol Cholecalciferol (Vitamin D) 5,000 unit PO DAILY [facility] Last Admin: 08/15/19 09:27 Dose: Not Given Documented by: Cyanocobalamin (Vitamin B12) 1,000 mcg PO DAILY [facility] Last Admin: 08/15/19 09:27 Dose: Not Given Documented by: Glucagon () 1 mg IM .X1 PRN PRN Reason: Hypoglycemia Dextrose (Dextrose 10%-Water) 250 mls @ 999 mls/hr IV .Q16M PRN; Protocol PRN Reason: HYPOGLYCEMIA Sodium Chloride () 250 mls @ 15 mls/hr IV .[id number] PRN PRN Reason: Saline Flush Sodium Chloride () 250 mls @ 15 mls/hr IV .[id number] PRN PRN Reason: Additional IVPB Infusion Cefepime HCl 1 gm/ Sodium (Chloride) 50 mls @ 100 mls/hr IV Q24 [facility] Last Admin: 08/16/19 11:22 Dose: 100 mls/hr Documented by: Daptomycin 600 mg/ Sodium (Chloride) 62 mls @ 100 mls/hr IV Q48H [facility] Last Infusion: 08/15/19 15:02 Dose: Infused Documented by: Dextrose/Sodium Chloride () 1,000 mls @ 75 mls/hr IV .[id number] [facility] Last Admin: 08/16/19 10:38 Dose: 75 mls/hr Documented by: Metronidazole (Flagyl) 500 mg in 100 mls @ 100 mls/hr IV Q8 [facility] Last Admin: 08/16/19 11:59 Dose: 100 mls/hr Documented by: Insulin Human Lispro (Humalog Kwikpen (Bkc)) 0 unit SC Q6 [facility]; Protocol Last Admin: 08/16/19 05:58 Dose: 1 unit Documented by: Levothyroxine Sodium (Synthroid) 75 mcg PO DAILY@0600 [facility] Last Admin: 08/16/19 05:26 Dose: Not Given Documented by: Metoprolol Tartrate (Lopressor (Beta Armani)) 25 mg PO BID [facility] Last Admin: 08/15/19 20:29 Dose: Not Given Documented by: Metoprolol Tartrate (Lopressor (Beta Armani)) 5 mg IV Q6H PRN PRN PRN Reason: BLOOD PRESSURE Nutritional Formula ([place] - Floyd Flavor) 1 packet PO BIDCM [facility] Last Admin: 08/15/19 15:52 Dose: Not Given Documented by: Prochlorperazine Edisylate (Compazine Iv) 5 mg IV Q4H PRN PRN PRN Reason: Breakthrough Nausea/Vomiting Last Admin: 08/10/19 10:33 Dose: 5 mg Documented by: Sodium Chloride () 10 - 40 ml IV UD PRN PRN Reason: Open End PICC Flush Last Admin: 08/16/19 10:40 Dose: 40 ml Documented by: Sodium Chloride (0.9% Nacl (Sterile) Posiflush) 10 - 40 ml IV UD PRN PRN Reason: Port access or dressing change Sodium Hypochlorite (Dakins Solution 0.25% (1/2 Strength)) 1 applic TOPICAL BID [facility]; Protocol Last Admin: 08/15/19 20:28 Dose: Not Given Documented by: STROKE Vital Signs/Narrative: Vital Signs Temp Pulse Resp BP Pulse Ox 08/16/19 11:34 97.3 F L 110 H 16 123/61 H 96 08/16/19 09:29 97.8 F 117 H 18 109/58 L 97 Medical Necessity - Tobacco Use Smoking Status: Former smoker Tobacco Use: Vapor Assessment/Plan All Active Problems ILIANA (acute kidney injury) (Acute) Fecal soiling due to fecal incontinence (Acute) 1. Severe sepsis 2/[address] IV pressure ulcer, presumed osteo - wound with MRSA. ID following. S/p debridement per Dr. Kaiser. Continue wound care/vac. May need diverting colostomy. Continue Flagyl, Cefepime. Vanc level still high. 2. Acute metabolic encephalopathy 2/2 sepsis - mentation poor. labs improving 3. Hypernatremia, hyperchloremia - improved. changed to d5 0.45 will recheck this afternoon. 4. C diff - not taking PO, on IV flagyl. only 1 stool yesterday. no abdominal tenderness. 5. Acute on chronic hypercarbic respiratory failure - avaps while sleeping, breaks ok if she becomes more alert. 6. T2DM- SSI 7. Anx/Depression/Bipolar - meds held for sedation 8. ILIANA on CKD III - nephrology following. renal US unremarkable. Worse. Pt with very little PO intake and low output. Started on D5W 9. HTN - controlled. 10. HLD - statin 11. Hypothyroidism - synthroid 12. GERD - PPI. 13. Tobacco abuse - vapes. will complicate wound healing. Discussed CODE status with family. They are considering their options, for now she will remain full code until further decision are made. DVT ppx: lovenox DC planning: LTAC vs SNF. This patient was seen by Chandan Light PA-C under the supervision of Dr. Chris <Stacy Chris - Last Filed: 08/16/19 15:58> Vitals/I&O's: Vital Signs Temp Pulse Resp BP Pulse Ox 98.5 F 96 18 124/70 H 93 08/16/19 15:44 08/16/19 15:44 08/16/19 15:44 08/16/19 15:44 08/16/19 15:44 Oxygen Flow Rate (L/min) 6 Oxygen Delivery Method Bi-pap Weight: 97.6 kg Body Mass Index (BMI) 36.9 Finger Stick Blood Glucose 134 Intake and Output for Last 24 Hours 08/14/19 08/15/19 08/16/19 23:59 23:59 23:59 Intake Total 200 / 200 1668.67 / 1668.67 1395.84 / 1395.84 Output Total 175 / 175 400 / 400 125 / 125 Balance 25 / 25 1268.67 / 1268.67 1270.84 / 1270.84 Microbiology Past 72 Hours 08/11/19 13:21 Bone - Buttock Gram Stain - Final 08/11/19 13:21 Bone - Buttock Wound Culture - Final Meth. resistant Staph. aureus Corynebacterium striatum 08/11/19 13:21 Bone - Buttock Anaerobic Culture - Preliminary Gram negative arik 08/11/19 06:40 Blood Culture (Wb) - Left Wrist Blood Culture - Final No growth in 5 days. 08/11/19 06:55 Blood Culture (Wb) - Left Wrist Blood Culture - Final No growth in 5 days. 08/09/19 06:35 Blood Culture (Wb) - Pic Blood Culture - Final No growth in 5 days. 08/13/19 23:00 Stool C. difficile GDH Antigen & Toxins - Final 08/13/19 23:00 Stool C. difficile DNA Amplification - Final 08/11/19 13:15 Tissue - Buttock Gram Stain - Final 08/11/19 13:15 Tissue - Buttock Wound Culture - Final Meth. resistant Staph. aureus Presumptive C albicans 08/11/19 13:15 Tissue - Buttock Anaerobic Culture - Final No anaerobic bacteria isolated. Laboratory Results 08/15/19 17:01: POC Glucose 102 08/16/19 00:10: POC Glucose 129 H 08/16/19 05:44: WBC 13.9 H, RBC 2.53 L, Hgb 8.9 L, Hct 25.6 L, MCV 101.2 H D, MCH 35.2 H, MCHC 34.8, RDW Std Deviation 56.7 H, RDW Coeff of Harper 20.8 H, Plt Count 286, MPV 9.5, Neut % (Auto) Not Reportable, Absolute Neuts (auto) 8.7 H, Absolute Lymphs (auto) 2.63, Total Counted 100, Neutrophils % (Manual) 60, Band Neutrophils % 3, Lymphocytes % (Manual) 19, Monocytes % (Manual) 6, Eosinophils % (Manual) 6 H, Metamyelocytes % 1, Myelocytes % 5 H, Nucleated RBCs/100 WBC 1, Diff Path Review May foll, Polychromasia RARE, Anisocytosis 1+ 08/16/19 05:44: Sodium 144, Potassium 3.7, Chloride 120 H, Carbon Dioxide 18.0 L , BUN 28 H, Creatinine 2.86 H, Estim Creat Clear Calc 15.92, Est GFR (MDRD) Af Amer 21 L, Est GFR (MDRD) Non-Af 18 L, BUN/Creatinine Ratio 9.8 L, Glucose 129 H , Calcium 8.1 L, Phosphorus 3.5, Albumin 1.9 L 08/16/19 05:44: Total Creatine Kinase 104 08/16/19 05:44: Magnesium 2.2 08/16/19 05:54: POC Glucose 158 H 08/16/19 12:48: POC Glucose 119 H 08/16/19 13:05: Sodium 147 H, Potassium 4.2, Chloride 123 H, Carbon Dioxide 17.0 L, Anion Gap 7, BUN 39 H, Creatinine 4.22 H, Estim Creat Clear Calc 10.79, Est GFR (MDRD) Af Amer 14 L, Est GFR (MDRD) Non-Af 11 L, BUN/Creatinine Ratio 9.2 L, Glucose 125 H, Calcium 8.2 L Current Medications Acetaminophen (Tylenol) 650 mg PO Q6H PRN PRN PRN Reason: Pain Score 1-3/Temp > 100.7 F Acetaminophen (Tylenol) 650 mg RECTAL Q4H PRN PRN PRN Reason: Pain Score 1-3/Temp > 100.7 F Albuterol Sulfate (Ventolin Aerosols) 2.5 mg INHALATION Q2H PRN PRN PRN Reason: SOB/Wheezing Allopurinol (Zyloprim) 300 mg PO DAILY [facility] Last Admin: 08/16/19 12:43 Dose: Not Given Documented by: Aspirin (Ecotrin) 81 mg PO QHS [facility] Last Admin: 08/15/19 20:28 Dose: Not Given Documented by: Atorvastatin Calcium (Lipitor) 80 mg PO QHS [facility] Last Admin: 08/15/19 20:28 Dose: Not Given Documented by: Calamine/Phenol (Calmoseptine Ointment) 1 applic TOPICAL 4X/DAY [facility]; Protocol Last Admin: 08/16/19 15:40 Dose: 1 applicatio Documented by: Cholecalciferol (Vitamin D) 5,000 unit PO DAILY [facility] Last Admin: 08/16/19 12:43 Dose: Not Given Documented by: Cyanocobalamin (Vitamin B12) 1,000 mcg PO DAILY [facility] Last Admin: 08/16/19 12:43 Dose: Not Given Documented by: Glucagon () 1 mg IM .X1 PRN PRN Reason: Hypoglycemia Dextrose (Dextrose 10%-Water) 250 mls @ 999 mls/hr IV .Q16M PRN; Protocol PRN Reason: HYPOGLYCEMIA Sodium Chloride () 250 mls @ 15 mls/hr IV .[id number] PRN PRN Reason: Saline Flush Sodium Chloride () 250 mls @ 15 mls/hr IV .[id number] PRN PRN Reason: Additional IVPB Infusion Cefepime HCl 1 gm/ Sodium (Chloride) 50 mls @ 100 mls/hr IV Q24 [facility] Last Infusion: 08/16/19 11:52 Dose: Infused Documented by: Daptomycin 600 mg/ Sodium (Chloride) 62 mls @ 100 mls/hr IV Q48H [facility] Last Infusion: 08/15/19 15:02 Dose: Infused Documented by: Metronidazole (Flagyl) 500 mg in 100 mls @ 100 mls/hr IV Q8 [facility] Last Admin: 08/16/19 15:37 Dose: 100 mls/hr Documented by: Dextrose () 1,000 mls @ 75 mls/hr IV .[id number] [facility] Insulin Human Lispro (Humalog Kwikpen (Bkc)) 0 unit SC Q6 [facility]; Protocol Last Admin: 08/16/19 12:54 Dose: Not Given Documented by: Levothyroxine Sodium (Synthroid) 75 mcg PO DAILY@0600 [facility] Last Admin: 08/16/19 05:26 Dose: Not Given Documented by: Metoprolol Tartrate (Lopressor (Beta Armani)) 25 mg PO BID [facility] Last Admin: 08/16/19 12:43 Dose: Not Given Documented by: Metoprolol Tartrate (Lopressor (Beta Armani)) 5 mg IV Q6H PRN PRN PRN Reason: BLOOD PRESSURE Last Admin: 08/16/19 13:21 Dose: 5 mg Documented by: Nutritional Formula ([place] - Floyd Flavor) 1 packet PO BIDCM [facility] Last Admin: 08/16/19 15:28 Dose: Not Given Documented by: Prochlorperazine Edisylate (Compazine Iv) 5 mg IV Q4H PRN PRN PRN Reason: Breakthrough Nausea/Vomiting Last Admin: 08/10/19 10:33 Dose: 5 mg Documented by: Sodium Chloride () 10 - 40 ml IV UD PRN PRN Reason: Open End PICC Flush Last Admin: 08/16/19 10:40 Dose: 40 ml Documented by: Sodium Chloride (0.9% Nacl (Sterile) Posiflush) 10 - 40 ml IV UD PRN PRN Reason: Port access or dressing change STROKE Vital Signs/Narrative: Vital Signs Temp Pulse Resp BP Pulse Ox 08/16/19 15:44 98.5 F 96 18 124/70 H 93 08/16/19 15:00 103 H 18 90 08/16/19 13:21 110 H 08/16/19 13:01 110 H Assessment/Plan This patient was seen in conjunction with VILLA Hansen. I have independently interviewed and examined the patient and reviewed pertinent historical, laboratory, and other data. Please refer to VILLA Hansen note for his patient's presentation, findings, and recommendations. I have reviewed and his note and concur with his documentation Patient was seen and examined. Remains very lethargic, on AVAPS. Labs look a little improved Physical Exam: Gen: Lethargic, pale, not jaundiced CVS:HS I +II, regular, no murmurs RESP: Diminished at lung bases GI: BS present and normal, soft, nontender, no palpable organs, wound vac on EXT:Bilateral pedal edema +1, in BIMAL hoses ASSESSMENT: 1. Severe sepsis due to MRSA, GNR stage IV pressure ulcer 2. Postop day 4 status post excision infected necrotizing right buttock and sacral pressure sore, Stage IV, with partial ostectomy for osteomyelitis. 3. Acute metabolic encephalopathy 4. Anxiety/depression 5. Hypertension 6. Hyperlipidemia 7. Hypothyroidism Plan: Continue on D5W at 100mls/hr Discussed with ID, will dc po vancomycin D/w pulmo, will keep her on AVAPS Code Visit Inpatient E&M: 87634 Subs Hosp L2
[2019-08-16 12:55] LABS: Bedside Glucose 119 mg/dL (70-110)
[2019-08-16] MEDS: Metoprolol Tartrate 5 MG/5 ML Vial IV (13:21)
[2019-08-16] MEDS: Menthol/Lanolin/Calamine/Znox 113 GM Tube 1 APPLIC TOPICAL ×4 (13:37→23:08)
[2019-08-16 13:58] LABS: Anion Gap 7 (5-15); BUN 39 mg/dL (7-18); BUN/Creat Ratio 9.2 RATIO (10-20); Calcium,Total 8.2 mg/dL (8.5-10.1); Chloride 123 mmol/L (98-107); Creatinine, Serum 4.22 mg/dL (0.55-1.02); EST Glomerular Filtration Rate 11 mL/min (>60); Est Glom Filt Rate - Afr Amer 14 mL/min (>60); Estimated Creatinine Clearance 10.79 ml/min; Glucose 125 mg/dL (74-106); Potassium 4.2 mmol/L (3.5-5.1); Sodium Level 147 mmol/L (136-145)
--- NOTE | 2019-08-16 17:41 | CPS ---
transcutaneous 31.8
[2019-08-16 17:56] LABS: Bedside Glucose 130 mg/dL (70-110)
--- NOTE | 2019-08-16 20:35 | PCM.PN.REN ---
Patient Problems: Active and Suspected Problems ILIANA (acute kidney injury) (Acute) Subjective: Following for ILIANA. Pt is obtunded. However, O2 saturation is 100% on nc O2. Unable to do ROS. - Physical Exam Vitals/I&O's: Vital Signs Temp Pulse Resp BP Pulse Ox 97.9 F 108 H 24 H 109/78 94 08/16/19 20:00 08/16/19 20:00 08/16/19 20:00 08/16/19 20:00 08/16/19 20:00 Oxygen Flow Rate (L/min) 6 Oxygen Delivery Method Bi-pap Weight: 97.6 kg Body Mass Index (BMI) 36.9 Finger Stick Blood Glucose 134 Intake and Output for Last 24 Hours 08/14/19 08/15/19 08/16/19 23:59 23:59 23:59 Intake Total 200 / 200 1668.67 / 1668.67 1495.84 / 1495.84 Output Total 175 / 175 400 / 400 175 / 175 Balance 25 / 25 1268.67 / 1268.67 1320.84 / 1320.84 General: Lethargic HEENT: Atraumatic Oral: Moist Mucosa Neck: Supple Lungs: Rhonchi - bilaterally Cardiovascular: Normal S1, Normal S2, No murmurs Abdomen: Soft, Non Tender Extremities: Edema - 1+ LE Microbiology Past 72 Hours 08/11/19 13:21 Bone - Buttock Gram Stain - Final 08/11/19 13:21 Bone - Buttock Wound Culture - Final Meth. resistant Staph. aureus Corynebacterium striatum 08/11/19 13:21 Bone - Buttock Anaerobic Culture - Preliminary Gram negative arik 08/11/19 06:40 Blood Culture (Wb) - Left Wrist Blood Culture - Final No growth in 5 days. 08/11/19 06:55 Blood Culture (Wb) - Left Wrist Blood Culture - Final No growth in 5 days. 08/09/19 06:35 Blood Culture (Wb) - Pic Blood Culture - Final No growth in 5 days. 08/13/19 23:00 Stool C. difficile GDH Antigen & Toxins - Final 08/13/19 23:00 Stool C. difficile DNA Amplification - Final 08/11/19 13:15 Tissue - Buttock Gram Stain - Final 08/11/19 13:15 Tissue - Buttock Wound Culture - Final Meth. resistant Staph. aureus Presumptive C albicans 08/11/19 13:15 Tissue - Buttock Anaerobic Culture - Final No anaerobic bacteria isolated. Laboratory Results 08/16/19 00:10: POC Glucose 129 H 08/16/19 05:44: WBC 13.9 H, RBC 2.53 L, Hgb 8.9 L, Hct 25.6 L, MCV 101.2 H D, MCH 35.2 H, MCHC 34.8, RDW Std Deviation 56.7 H, RDW Coeff of Harper 20.8 H, Plt Count 286, MPV 9.5, Neut % (Auto) Not Reportable, Absolute Neuts (auto) 8.7 H, Absolute Lymphs (auto) 2.63, Total Counted 100, Neutrophils % (Manual) 60, Band Neutrophils % 3, Lymphocytes % (Manual) 19, Monocytes % (Manual) 6, Eosinophils % (Manual) 6 H, Metamyelocytes % 1, Myelocytes % 5 H, Nucleated RBCs/100 WBC 1, Diff Path Review May foll, Polychromasia RARE, Anisocytosis 1+ 08/16/19 05:44: Sodium 144, Potassium 3.7, Chloride 120 H, Carbon Dioxide 18.0 L, BUN 28 H, Creatinine 2.86 H, Estim Creat Clear Calc 15.92, Est GFR (MDRD) Af Amer 21 L, Est GFR (MDRD) Non-Af 18 L, BUN/Creatinine Ratio 9.8 L, Glucose 129 H, Calcium 8.1 L, Phosphorus 3.5, Albumin 1.9 L 08/16/19 05:44: Total Creatine Kinase 104 08/16/19 05:44: Magnesium 2.2 08/16/19 05:54: POC Glucose 158 H 08/16/19 12:48: POC Glucose 119 H 08/16/19 13:05: Sodium 147 H, Potassium 4.2, Chloride 123 H, Carbon Dioxide 17.0 L, Anion Gap 7, BUN 39 H, Creatinine 4.22 H, Estim Creat Clear Calc 10.79, Est GFR (MDRD) Af Amer 14 L, Est GFR (MDRD) Non-Af 11 L, BUN/Creatinine Ratio 9.2 L, Glucose 125 H, Calcium 8.2 L 08/16/19 17:49: POC Glucose 130 H Current Medications Acetaminophen (Tylenol) 650 mg PO Q6H PRN PRN PRN Reason: Pain Score 1-3/Temp > 100.7 F Acetaminophen (Tylenol) 650 mg RECTAL Q4H PRN PRN PRN Reason: Pain Score 1-3/Temp > 100.7 F Albuterol Sulfate (Ventolin Aerosols) 2.5 mg INHALATION Q2H PRN PRN PRN Reason: SOB/Wheezing Allopurinol (Zyloprim) 300 mg PO DAILY [facility] Last Admin: 08/16/19 12:43 Dose: Not Given Documented by: Aspirin (Ecotrin) 81 mg PO QHS [facility] Last Admin: 08/15/19 20:28 Dose: Not Given Documented by: Atorvastatin Calcium (Lipitor) 80 mg PO QHS [facility] Last Admin: 08/15/19 20:28 Dose: Not Given Documented by: Calamine/Phenol (Calmoseptine Ointment) 1 applic TOPICAL 4X/DAY [facility]; Protocol Last Admin: 08/16/19 19:03 Dose: 1 applicatio Documented by: Cholecalciferol (Vitamin D) 5,000 unit PO DAILY [facility] Last Admin: 08/16/19 12:43 Dose: Not Given Documented by: Cyanocobalamin (Vitamin B12) 1,000 mcg PO DAILY [facility] Last Admin: 08/16/19 12:43 Dose: Not Given Documented by: Glucagon () 1 mg IM .X1 PRN PRN Reason: Hypoglycemia Dextrose (Dextrose 10%-Water) 250 mls @ 999 mls/hr IV .Q16M PRN; Protocol PRN Reason: HYPOGLYCEMIA Sodium Chloride () 250 mls @ 15 mls/hr IV .[id number] PRN PRN Reason: Saline Flush Sodium Chloride () 250 mls @ 15 mls/hr IV .[id number] PRN PRN Reason: Additional IVPB Infusion Cefepime HCl 1 gm/ Sodium (Chloride) 50 mls @ 100 mls/hr IV Q24 [facility] Last Infusion: 08/16/19 11:52 Dose: Infused Documented by: Daptomycin 600 mg/ Sodium (Chloride) 62 mls @ 100 mls/hr IV Q48H [facility] Last Infusion: 08/15/19 15:02 Dose: Infused Documented by: Metronidazole (Flagyl) 500 mg in 100 mls @ 100 mls/hr IV Q8 [facility] Last Infusion: 08/16/19 16:45 Dose: Infused Documented by: Dextrose () 1,000 mls @ 100 mls/hr IV .Q10H [facility] Last Admin: 08/16/19 17:07 Dose: 100 mls/hr Documented by: Insulin Human Lispro (Humalog Kwikpen (Bkc)) 0 unit SC Q6 [facility]; Protocol Last Admin: 08/16/19 18:44 Dose: Not Given Documented by: Levothyroxine Sodium (Synthroid) 75 mcg PO DAILY@0600 [facility] Last Admin: 08/16/19 05:26 Dose: Not Given Documented by: Metoprolol Tartrate (Lopressor (Beta Armani)) 25 mg PO BID [facility] Last Admin: 08/16/19 12:43 Dose: Not Given Documented by: Metoprolol Tartrate (Lopressor (Beta Armani)) 5 mg IV Q6H PRN PRN PRN Reason: BLOOD PRESSURE Last Admin: 08/16/19 13:21 Dose: 5 mg Documented by: Nutritional Formula ([place] - [place] Flavor) [facility] Last Admin: 08/16/19 15:28 Dose: Not Given Documented by: Prochlorperazine Edisylate (Compazine Iv) 5 mg IV Q4H PRN PRN PRN Reason: Breakthrough Nausea/Vomiting Last Admin: 08/10/19 10:33 Dose: 5 mg Documented by: Sodium Chloride () 10 - 40 ml IV UD PRN PRN Reason: Open End PICC Flush Last Admin: 08/16/19 10:40 Dose: 40 ml Documented by: Sodium Chloride (0.9% Nacl (Sterile) Posiflush) 10 - 40 ml IV UD PRN PRN Reason: Port access or dressing change Medical Necessity - Tobacco Use Smoking Status: Former smoker Tobacco Use: Vapor Assessment/Plan All Active Problems ILIANA (acute kidney injury) (Acute) Fecal soiling due to fecal incontinence (Acute) 1. ILIANA. normal baseline. Now worsening. Cr increased from 3.83 yesterday to 4.22 today. Patient has severe sepsis likely related to sacral decubitus ulcer. Renal US without hydronephrosis Still soft BP but not requiring pressor. ILIANA is likely due to ATN due to vanco and ischemia due to sepsis. urine output is low. I did discuss the possible need for dialysis with the pt's (Ramon Morfin) ernesto. Will recheck renal function in am. Will determine the need for dialysis based on labs and exam. 2. Hypernatremia. started D5W today. 3. Acidosis. Serum HCO3 is stable at 17. No urgent need for NaHCO3 especially with hypernatremia. 4. Severe sepsis. secondary to infected decubitus ulcer/osteomyelitis. Antibiotics as per ID. Dose of antibiotic acceptable for current CrCl.
[2019-08-16 21:16] LABS: Allen Test POS; Base Excess -12 mmol/L (-2 to +2); Blood Gas Specimen Type ART; O2 Delivery Device Nasal Can; PO2 66 mmHG (75-100); SITE R Radial; SO2 91 % (95-99); Time Given 2100; Total Carbon Dioxide 16 mmol/L; pCO2 31.1 mmHg (35-45); pH 7.29 (7.35-7.45)
[2019-08-16 23:16] LABS: Bedside Glucose 162 mg/dL (70-110)
[2019-08-17] VITALS (57 sets, daily range): BP systolic 49–169; BP diastolic 29–147; PULSE 101–150; RESP 14–33; TEMP 36–36.7; O2SAT 90–99
--- NOTE | 2019-08-17 00:11 | PCM.PN.BLA ---
Progress Note Discussed with patient's , Ramon ([phone]) about code status. Explained to patient's that patient is in critical condition. Patient's wants patient to remain full code. STROKE Vital Signs/Narrative: Vital Signs Temp Pulse Resp BP BP Pulse Ox 08/17/19 00:00 98.0 F 106 H 25 H 105/83 H 95 08/16/19 23:00 101 H 23 H 106/56 L 93 08/16/19 22:00 103 H 21 H 106/68 94 08/16/19 21:00 102 H 22 H 103/59 L 94 08/16/19 20:30 92
[2019-08-17] MEDS: Acetylcysteine 800 MG/4 ML VIAL.NEB. INHALATION (01:06)
[2019-08-17] MEDS: Ipratropium/Albuterol Sulfate 3 ML AMPUL.NEB INHALATION ×6 (01:06→22:57)
--- NOTE | 2019-08-17 01:55 | RAD_ITS ---
HISTORY: SOBSEVERE SEPSIS, ACUTE RESPIRATORY FAILUREPT UNABLE TO FOLLOW BREATHING INSTRUCTIONS EXAM: XR Chest 1 View: COMPARISON: August 12, 2019 FINDINGS: # of images incl. paperwork: 1 Elevation of the right hemidiaphragm Lung atelectasis and basilar consolidation greater on the right obscuring the right heart border and right hemidiaphragm. Heart is not enlarged. Scoliosis and degenerative disc disease. Calcific plaque within the aortic arch. Pulmonary vascularity is indistinct. Bilateral pleural effusions. RAD/Chest 1 View (Portable) IMPRESSION: Decreasing lung expansion. Increasing pulmonary edema. Likely increasing atelectasis within the right lower lobe, possibly increasing consolidation and infection within the right lower lobe.. at 0331 Reported and signed by: Mendez Smith MD Electronically Signed: Mendez Smith MD at 3:30 EST Tel , Service support ,
--- NOTE | 2019-08-17 02:31 | PCM.PN.BLA ---
Progress Note Earlier on the patient was placed on DuoNeb with Mucomyst due to nurse report of patient having rhonchorous respiration and unable to expectorate secretions. Order was given to suction. Order to take patient off avAP since patient was obtunded. Serum CO2 monitoring showed normal CO2. ABG showed pH CO2 of 31. Portable chest x-ray was ordered. Following nurse reported that patient remains obtunded patient was examined at bedside. Patient obtunded with moaning. Posterior lung sounds rhonchi with some wheezes. Tachypnea. Heart sounds S1-S2 present tachycardia. Abdomen is soft; bowel sounds are present Foam dressing on right hip connected to wound VAC. Patient on D5W secondary to hypernatremia. Nurse reports low urinary volume of a 50 mL in at least the past 7 hours. A chest x-ray interpreted by me showed some right-sided opacity new from previous. Of note chest x-ray shows hypoinflation. We will give patient Lasix 80 mg IV push x1. Of note patient is on cefepime and daptomycin. Previously was on vancomycin. And [employer] is consider dialysis. CBC and BMP already ordered in a.m. We will get magnesium level and phosphorus level. STROKE Vital Signs/Narrative: Vital Signs Temp Pulse Resp BP BP Pulse Ox 08/17/19 01:02 101 H 18 94 08/17/19 00:00 98.0 F 106 H 25 H 105/83 H 95 08/16/19 23:00 101 H 23 H 106/56 L 93
[2019-08-17] MEDS: Furosemide 100 MG/10 ML Vial 80 MG IV (03:13)
[2019-08-17] MEDS: metroNIDAZOLE 500 MG/100 ML BAG 100 MG IV ×3 (05:25→21:33)
[2019-08-17 05:35] LABS: Hematocrit 32.9 % (37-47); Mean Corp Hgb Conc 30.4 g/dL (32-36); Mean Corpuscular Hgb 31.6 pg (27.0-32.0); Mean Corpuscular Volume 104.1 fL (81-99); Mean Platelet Vol. 8.8 fl (6.2-12.0); POSITIVE COUNT YES; POSITIVE DIFFERENTIAL YES; POSITIVE MORPHOLOGY YES; Platelet Count 537 K/mm3 (150-450); RBC Distribution Width CV 17.6 % (11.6-14.6); RBC Distribution Width SD 66.1 fl (35.1-43.9); Red Blood Count 3.16 M/mm3 (4.2-5.4)
[2019-08-17 05:36] LABS: Bedside Glucose 142 mg/dL (70-110)
[2019-08-17 05:49] LABS: Anion Gap 9 (5-15); BUN 41 mg/dL (7-18); BUN/Creat Ratio 8.7 RATIO (10-20); Calcium,Total 8.1 mg/dL (8.5-10.1); Chloride 119 mmol/L (98-107); Creatinine, Serum 4.73 mg/dL (0.55-1.02); EST Glomerular Filtration Rate 10 mL/min (>60); Est Glom Filt Rate - Afr Amer 12 mL/min (>60); Estimated Creatinine Clearance 9.63 ml/min; Glucose 163 mg/dL (74-106); Magnesium 2.3 mg/dL (1.6-2.6); Phosphorus 4.2 mg/dL (2.5-4.9); Potassium 3.3 mmol/L (3.5-5.1); Sodium Level 143 mmol/L (136-145)
[2019-08-17 05:58] LABS: Differential Indicated MANUAL DIFF
[2019-08-17 07:01] LABS: Anisocytosis 1+; Corrected WBC 35.7 K/mm3 (4.4-11.0); Eosinophil 2 % (0-5); Hypochromasia 1+; Lymphocyte 16 % (19-41); Metamyelocyte 1 % (0-1); Monocyte 4 % (0-10); Myelocyte 2 (0-0); Neutrophil-Band 6 % (0-5); Neutrophil-Segmented 69 % (47-70); Nucleated Red Bld Cells,Manual 6 % (0-5); Polychromasia 1+; Total Cells Counted 100 (MANUAL DIFF)
[2019-08-17 07:02] LABS: Microcytosis 1+; Platelet Estimate MOD INC (ADEQ)
[2019-08-17 07:04] LABS: Absolute Lymphocyte Count 5.71 X10^3/uL (0.83-4.51); Absolute Neutrophil Count 26.8 X10^3/uL (2.0-7.7)
--- NOTE | 2019-08-17 07:22 | PN_ITS ---
Subjective: Patient with decreased responsiveness overnight, and continues to protect her airway. Blood pressures have been marginal at times, but no boluses or pressors have been required. During my evaluation, patient will open her eyes, but is not following commands. Very little spontaneous movement of the extremities, but does respond to painful stimulus appropriately. Objective: Chest x-ray was significant atelectasis bilateral lower lobes General: - - RASS -2. Morbidly obese. Appears older than stated age. HEENT: Atraumatic, PERRLA, EOMI, Normocephalic, - - Slight scleral injection without icterus Oral: Moist Mucosa, No Gingival or Mucosal Lesions/ Ulcerations Neck: Supple, No JVD, No Nodes, Trachea Midline Lungs: No rhonchi, No wheeze, No rales, Diminished, - - Fair effort. Cardiovascular: Normal S1, Normal S2, No murmurs, No rub noted, No Gallop, Tachycardic Abdomen: Bowel Sounds Present, Soft, Non Tender, Non-Distended, Obese Extremities: No cyanosis, Capillary Refill Less than 3 Seconds, Clubbing, Edema Skin: - - No significant change compared to previous Musculoskeletal: No Tenderness to Palpation of Joints or Extremities Lymphatic: No Cervical, Supraclavicular, or Inguinal Adenopathy Neurological: Cranial nerves II-XII grossly intact, Neuro grossly intact, Motor Exam 5/5 strength throughout Psych/Mental Status: Alert and oriented to time, place, person, mood and affect Vital Signs Temp Pulse Resp BP Pulse Ox 36.5 C L 111 H 16 100/52 L 93 08/17/19 04:00 08/17/19 06:00 08/17/19 06:00 08/17/19 06:00 08/17/19 06:00 Oxygen Flow Rate (L/min) 3 Oxygen Delivery Method Nasal Cannula Weight: 97.1 kg Body Mass Index (BMI) 36.9 Finger Stick Blood Glucose 134 Intake and Output for Last 24 Hours 08/15/19 08/16/19 08/17/19 23:59 23:59 23:59 Intake Total 1668.67 / 1668.67 1495.84 / 1495.84 1123.33 / 1123.33 Output Total 400 / 400 175 / 225 100 / 100 Balance 1268.67 / 1268.67 1320.84 / 1270.84 1023.33 / 1023.33 Labs (Last 48 Hours) 08/15/19 08/15/19 08/15/19 06:11 06:11 11:08 WBC Corrected WBC RBC Hgb Hct MCV MCH MCHC RDW Std Deviation RDW Coeff of Harper Plt Count MPV Neut % (Auto) Absolute Neuts (auto) Absolute Lymphs (auto) Total Counted Neutrophils % (Manual) Band Neutrophils % Lymphocytes % (Manual) Monocytes % (Manual) Eosinophils % (Manual) Metamyelocytes % Myelocytes % Nucleated RBCs/100 WBC Diff Path Review Reviewed Platelet Estimate Polychromasia Hypochromasia Anisocytosis Microcytosis Specimen Type Sample Site pH Bicarbonate Actual POC Total CO2 Base Excess O2 Saturation O2 % ABG pCO2 ABG pO2 Ramy Test Respiration Rate O2 Delivery Device Liter Flow EPAP Blood Gas Notified Whom Blood Gas Notified Time Sodium 153 H Potassium 3.9 Chloride 130 H* Carbon Dioxide 18.0 L Anion Gap 5 BUN 37 H Creatinine 3.61 H Estim Creat Clear Calc 12.62 Est GFR (MDRD) Af Amer 16 L Est GFR (MDRD) Non-Af 14 L BUN/Creatinine Ratio 10.2 Glucose 114 H Calcium 8.7 Phosphorus Magnesium Total Creatine Kinase Albumin POC Glucose 119 H 08/15/19 08/15/19 08/15/19 12:14 13:03 15:46 WBC Corrected WBC RBC Hgb Hct MCV MCH MCHC RDW Std Deviation RDW Coeff of Harper Plt Count MPV Neut % (Auto) Absolute Neuts (auto) Absolute Lymphs (auto) Total Counted Neutrophils % (Manual) Band Neutrophils % Lymphocytes % (Manual) Monocytes % (Manual) Eosinophils % (Manual) Metamyelocytes % Myelocytes % Nucleated RBCs/100 WBC Diff Path Review Platelet Estimate Polychromasia Hypochromasia Anisocytosis Microcytosis Specimen Type ART ART Sample Site L Radial R Radial pH 7.28 L 7.29 L Bicarbonate Actual 16.0 L 16.4 L POC Total CO2 17 17 Base Excess -11 L -10 L O2 Saturation 82 L 90 L O2 % 30 ABG pCO2 33.8 L 34.4 L ABG pO2 52 L 65 L Ramy Test POS POS Respiration Rate 14 O2 Delivery Device Nasal Can Bi / C PAP Liter Flow 5.0 EPAP 8 Blood Gas Notified Whom ICU RN Blood Gas Notified Time 1301 1546 Sodium 152 H Potassium 3.8 Chloride 129 H* Carbon Dioxide 17.0 L Anion Gap 6 BUN 40 H Creatinine 3.83 H Estim Creat Clear Calc 11.89 Est GFR (MDRD) Af Amer 15 L Est GFR (MDRD) Non-Af 13 L BUN/Creatinine Ratio 10.4 Glucose 137 H Calcium 8.5 Phosphorus Magnesium Total Creatine Kinase Albumin POC Glucose 08/15/19 08/16/19 08/16/19 17:01 00:10 05:44 WBC 13.9 H Corrected WBC RBC 2.53 L Hgb 8.9 L Hct 25.6 L MCV 101.2 H D MCH 35.2 H MCHC 34.8 RDW Std Deviation 56.7 H RDW Coeff of Harper 20.8 H Plt Count 286 MPV 9.5 Neut % (Auto) Not Reportable Absolute Neuts (auto) 8.7 H Absolute Lymphs (auto) 2.63 Total Counted 100 Neutrophils % (Manual) 60 Band Neutrophils % 3 Lymphocytes % (Manual) 19 Monocytes % (Manual) 6 Eosinophils % (Manual) 6 H Metamyelocytes % 1 Myelocytes % 5 H Nucleated RBCs/100 WBC 1 Diff Path Review May foll Platelet Estimate Polychromasia RARE Hypochromasia Anisocytosis 1+ Microcytosis Specimen Type Sample Site pH Bicarbonate Actual POC Total CO2 Base Excess O2 Saturation O2 % ABG pCO2 ABG pO2 Ramy Test Respiration Rate O2 Delivery Device Liter Flow EPAP Blood Gas Notified Whom Blood Gas Notified Time Sodium Potassium Chloride Carbon Dioxide Anion Gap BUN Creatinine Estim Creat Clear Calc Est GFR (MDRD) Af Amer Est GFR (MDRD) Non-Af BUN/Creatinine Ratio Glucose Calcium Phosphorus Magnesium Total Creatine Kinase Albumin POC Glucose 102 129 H 08/16/19 08/16/19 08/16/19 05:44 05:44 05:44 WBC Corrected WBC RBC Hgb Hct MCV MCH MCHC RDW Std Deviation RDW Coeff of Harper Plt Count MPV Neut % (Auto) Absolute Neuts (auto) Absolute Lymphs (auto) Total Counted Neutrophils % (Manual) Band Neutrophils % Lymphocytes % (Manual) Monocytes % (Manual) Eosinophils % (Manual) Metamyelocytes % Myelocytes % Nucleated RBCs/100 WBC Diff Path Review Platelet Estimate Polychromasia Hypochromasia Anisocytosis Microcytosis Specimen Type Sample Site pH Bicarbonate Actual POC Total CO2 Base Excess O2 Saturation O2 % ABG pCO2 ABG pO2 Ramy Test Respiration Rate O2 Delivery Device Liter Flow EPAP Blood Gas Notified Whom Blood Gas Notified Time Sodium 144 Potassium 3.7 Chloride 120 H Carbon Dioxide 18.0 L Anion Gap BUN 28 H Creatinine 2.86 H Estim Creat Clear Calc 15.92 Est GFR (MDRD) Af Amer 21 L Est GFR (MDRD) Non-Af 18 L BUN/Creatinine Ratio 9.8 L Glucose 129 H Calcium 8.1 L Phosphorus 3.5 Magnesium 2.2 Total Creatine Kinase 104 Albumin 1.9 L POC Glucose 08/16/19 08/16/19 08/16/19 05:54 12:48 13:05 WBC Corrected WBC RBC Hgb Hct MCV MCH MCHC RDW Std Deviation RDW Coeff of Harper Plt Count MPV Neut % (Auto) Absolute Neuts (auto) Absolute Lymphs (auto) Total Counted Neutrophils % (Manual) Band Neutrophils % Lymphocytes % (Manual) Monocytes % (Manual) Eosinophils % (Manual) Metamyelocytes % Myelocytes % Nucleated RBCs/100 WBC Diff Path Review Platelet Estimate Polychromasia Hypochromasia Anisocytosis Microcytosis Specimen Type Sample Site pH Bicarbonate Actual POC Total CO2 Base Excess O2 Saturation O2 % ABG pCO2 ABG pO2 Ramy Test Respiration Rate O2 Delivery Device Liter Flow EPAP Blood Gas Notified Whom Blood Gas Notified Time Sodium 147 H Potassium 4.2 Chloride 123 H Carbon Dioxide 17.0 L Anion Gap 7 BUN 39 H Creatinine 4.22 H Estim Creat Clear Calc 10.79 Est GFR (MDRD) Af Amer 14 L Est GFR (MDRD) Non-Af 11 L BUN/Creatinine Ratio 9.2 L Glucose 125 H Calcium 8.2 L Phosphorus Magnesium Total Creatine Kinase Albumin POC Glucose 158 H 119 H 08/16/19 08/16/19 08/16/19 17:49 21:09 23:02 WBC Corrected WBC RBC Hgb Hct MCV MCH MCHC RDW Std Deviation RDW Coeff of Harper Plt Count MPV Neut % (Auto) Absolute Neuts (auto) Absolute Lymphs (auto) Total Counted Neutrophils % (Manual) Band Neutrophils % Lymphocytes % (Manual) Monocytes % (Manual) Eosinophils % (Manual) Metamyelocytes % Myelocytes % Nucleated RBCs/100 WBC Diff Path Review Platelet Estimate Polychromasia Hypochromasia Anisocytosis Microcytosis Specimen Type ART Sample Site R Radial pH 7.29 L Bicarbonate Actual 15.0 L POC Total CO2 16 Base Excess -12 L O2 Saturation 91 L O2 % ABG pCO2 31.1 L ABG pO2 66 L Ramy Test POS Respiration Rate O2 Delivery Device Nasal Can Liter Flow 2.0 EPAP Blood Gas Notified Whom [facility] MD Blood Gas Notified Time 2100 Sodium Potassium Chloride Carbon Dioxide Anion Gap BUN Creatinine Estim Creat Clear Calc Est GFR (MDRD) Af Amer Est GFR (MDRD) Non-Af BUN/Creatinine Ratio Glucose Calcium Phosphorus Magnesium Total Creatine Kinase Albumin POC Glucose 130 H 162 H 08/17/19 08/17/19 08/17/19 05:18 05:18 05:18 WBC [employer] Corrected WBC 35.7 H* RBC 3.16 L Hgb 10.0 L Hct 32.9 L MCV 104.1 H MCH 31.6 MCHC 30.4 L RDW Std Deviation 66.1 H RDW Coeff of Harper 17.6 H Plt Count 537 H MPV 8.8 Neut % (Auto) Not Reportable Absolute Neuts (auto) 26.8 H Absolute Lymphs (auto) 5.71 H Total Counted 100 Neutrophils % (Manual) 69 Band Neutrophils % 6 H Lymphocytes % (Manual) 16 L Monocytes % (Manual) 4 Eosinophils % (Manual) 2 Metamyelocytes % 1 Myelocytes % 2 H Nucleated RBCs/100 WBC 6 H Diff Path Review May foll Platelet Estimate MOD INC Polychromasia 1+ Hypochromasia 1+ Anisocytosis 1+ Microcytosis 1+ Specimen Type Sample Site pH Bicarbonate Actual POC Total CO2 Base Excess O2 Saturation O2 % ABG pCO2 ABG pO2 Ramy Test Respiration Rate O2 Delivery Device Liter Flow EPAP Blood Gas Notified Whom Blood Gas Notified Time Sodium 143 Potassium 3.3 L Chloride 119 H Carbon Dioxide 15.0 L Anion Gap 9 BUN 41 H Creatinine 4.73 H Estim Creat Clear Calc 9.63 Est GFR (MDRD) Af Amer 12 L Est GFR (MDRD) Non-Af 10 L BUN/Creatinine Ratio 8.7 L Glucose 163 H Calcium 8.1 L Phosphorus 4.2 Cancelled Magnesium 2.3 Total Creatine Kinase Albumin POC Glucose 08/17/19 05:23 WBC Corrected WBC RBC Hgb Hct MCV MCH MCHC RDW Std Deviation RDW Coeff of Harper Plt Count MPV Neut % (Auto) Absolute Neuts (auto) Absolute Lymphs (auto) Total Counted Neutrophils % (Manual) Band Neutrophils % Lymphocytes % (Manual) Monocytes % (Manual) Eosinophils % (Manual) Metamyelocytes % Myelocytes % Nucleated RBCs/100 WBC Diff Path Review Platelet Estimate Polychromasia Hypochromasia Anisocytosis Microcytosis Specimen Type Sample Site pH Bicarbonate Actual POC Total CO2 Base Excess O2 Saturation O2 % ABG pCO2 ABG pO2 Ramy Test Respiration Rate O2 Delivery Device Liter Flow EPAP Blood Gas Notified Whom Blood Gas Notified Time Sodium Potassium Chloride Carbon Dioxide Anion Gap BUN Creatinine Estim Creat Clear Calc Est GFR (MDRD) Af Amer Est GFR (MDRD) Non-Af BUN/Creatinine Ratio Glucose Calcium Phosphorus Magnesium Total Creatine Kinase Albumin POC Glucose 142 H Microbiology 08/11/19 13:21 Bone - Buttock Gram Stain - Final 08/11/19 13:21 Bone - Buttock Wound Culture - Final Meth. resistant Staph. aureus Corynebacterium striatum 08/11/19 13:21 Bone - Buttock Anaerobic Culture - Preliminary Gram negative arik 08/11/19 06:40 Blood Culture (Wb) - Left Wrist Blood Culture - Final No growth in 5 days. 08/11/19 06:55 Blood Culture (Wb) - Left Wrist Blood Culture - Final No growth in 5 days. 08/09/19 06:35 Blood Culture (Wb) - Pic Blood Culture - Final No growth in 5 days. Clinical Impression(s) from Imaging Studies Chest X-Ray 08/17/19 01:55 IMPRESSION: Decreasing lung expansion. Increasing pulmonary edema. Likely increasing atelectasis within the right lower lobe, possibly increasing consolidation and infection within the right lower lobe.. at 0331 Reported and signed by: Mendez Smith MD Electronically Signed: Mendez Smith MD at 3:30 EST Tel , Service support , Medical Necessity - Tobacco Use Smoking Status: Former smoker Tobacco Use: Vapor Assessment/Plan All Active Problems ILIANA (acute kidney injury) (Acute) Fecal soiling due to fecal incontinence (Acute) RECOMMENDATIONS: 1. Continue antibiotics per infectious disease. 2. Continue plastic surgery evaluation. Continue local wound care. Possible diverting colostomy 3. Wean supplemental oxygen to maintain saturations at or above 90%. 4. Continue transcutaneous CO2 monitoring 5. Place PICC line 6. Okay to allow for BiPAP breaks as tolerated. Should be on BiPAP with any sleep 7. Await renal assessment for hemodialysis. If hemodialysis, consider transfer to the intensive care unit for possible pressors IMPRESSIONS: 1. 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 Cultures are currently showing MRSA and Corynebacterium. Patient is on cefepime, which should cover reported organisms. Patient has been transitioned to daptomycin. Patient may require diverting colostomy. Blood pressure has been stable. Patient is now growing a gram-negative arik from her bone culture. Species and sensitivities are not available at this time. 2. Encephalopathy Patient continues significantly lethargic, but continues to protect her airway. Clinical suspicion for multifactorial etiology including renal failure, retention of medications, but no CO2 retention on transcutaneous CO2 and intermittent ABGs. Continue transcutaneous CO2 monitoring. Continue to hold baseline psychiatric medications. Antibiotics will be continued to address her infectious etiologies. Does not appear to have a focal exam, but could consider a CT scan of the head 3. Acute on chronic hypercarbic respiratory failure?obstructive sleep apnea Repeat ABG showed good response to AVAPS therapy. This should be continued with sleep, sedation or as rescue during the day if necessary. Patient with significant non-anion gap hyperchloremic metabolic acidosis, which will increase respiratory demands. Patient has improved overnight. Would continue free water, but at lower dosing. Still oxygenating okay from a respiratory standpoint, but development of pulmonary edema will be a concern. 4. History of bipolar disorder/diabetes mellitus/hypertension/hyperlipidemia/obesity/chronic kidney disease Complicates care, management, recovery and prognosis. Patient with significant worsening in renal function. Unclear if patient will need hemodialysis or not. Nephrology is following. Code Visit Inpatient E&M: [id number] [facility] L3
--- NOTE | 2019-08-17 07:44 | CPS ---
TRANSCUTANEOUS RECALIBRATED. READING 29 POST CALIBRATION
--- NOTE | 2019-08-17 08:24 | PCM.PN.SRG ---
Patient Problems: Active and Suspected Problems ILIANA (acute kidney injury) (Acute) Subjective: Patient not responding to commands - Physical Exam Vitals/I&O's: Vital Signs Temp Pulse Resp BP Pulse Ox 97.7 F L 105 H 16 100/52 L 96 08/17/19 04:00 08/17/19 06:59 08/17/19 06:59 08/17/19 06:00 08/17/19 06:59 Oxygen Flow Rate (L/min) 3 Oxygen Delivery Method Nasal Cannula Weight: 214 lb 1.102 oz Body Mass Index (BMI) 36.9 Finger Stick Blood Glucose 134 Intake and Output for Last 24 Hours 08/15/19 08/16/19 08/17/19 23:59 23:59 23:59 Intake Total 1668.67 / 1668.67 1495.84 / 1495.84 1123.33 / 1123.33 Output Total 400 / 400 175 / 225 100 / 100 Balance 1268.67 / 1268.67 1320.84 / 1270.84 1023.33 / 1023.33 General: Confused Abdomen: Soft, Non Tender, Non-Distended Microbiology Past 72 Hours 08/11/19 13:21 Bone - Buttock Gram Stain - Final 08/11/19 13:21 Bone - Buttock Wound Culture - Final Meth. resistant Staph. aureus Corynebacterium striatum 08/11/19 13:21 Bone - Buttock Anaerobic Culture - Final Bacteroides vulgatus 08/11/19 06:40 Blood Culture (Wb) - Left Wrist Blood Culture - Final No growth in 5 days. 08/11/19 06:55 Blood Culture (Wb) - Left Wrist Blood Culture - Final No growth in 5 days. 08/09/19 06:35 Blood Culture (Wb) - Pic Blood Culture - Final No growth in 5 days. 08/13/19 23:00 Stool C. difficile GDH Antigen & Toxins - Final 08/13/19 23:00 Stool C. difficile DNA Amplification - Final 08/11/19 13:15 Tissue - Buttock Gram Stain - Final 08/11/19 13:15 Tissue - Buttock Wound Culture - Final Meth. resistant Staph. aureus Presumptive C albicans 08/11/19 13:15 Tissue - Buttock Anaerobic Culture - Final No anaerobic bacteria isolated. Laboratory Results 08/16/19 05:44: Magnesium 2.2 08/16/19 12:48: POC Glucose 119 H 08/16/19 13:05: Sodium 147 H, Potassium 4.2, Chloride 123 H, Carbon Dioxide 17.0 L, Anion Gap 7, BUN 39 H, Creatinine 4.22 H, Estim Creat Clear Calc 10.79, Est GFR (MDRD) Af Amer 14 L, Est GFR (MDRD) Non-Af 11 L, BUN/Creatinine Ratio 9.2 L, Glucose 125 H, Calcium 8.2 L 08/16/19 17:49: POC Glucose 130 H 08/16/19 21:09: Specimen Type ART, Sample Site R Radial, pH 7.29 L, Bicarbonate Actual 15.0 L, POC Total CO2 16, Base Excess -12 L, O2 Saturation 91 L, ABG pCO2 31.1 L, ABG pO2 66 L, Ramy Test POS, O2 Delivery Device Nasal Can, Liter Flow 2.0, Blood Gas Notified Whom KRISTEL MARES, Blood Gas Notified Time 2100 08/16/19 23:02: POC Glucose 162 H 08/17/19 05:18: WBC BLADDER CLEANER, Corrected WBC 35.7 H*, RBC 3.16 L, Hgb 10.0 L, Hct 32.9 L, MCV 104.1 H, MCH 31.6, MCHC 30.4 L, RDW Std Deviation 66.1 H, RDW Coeff of Harper 17.6 H, Plt Count 537 H, MPV 8.8, Neut % (Auto) Not Reportable, Absolute Neuts (auto) 26.8 H, Absolute Lymphs (auto) 5.71 H, Total Counted 100, Neutrophils % (Manual) 69, Band Neutrophils % 6 H, Lymphocytes % (Manual) 16 L, Monocytes % (Manual) 4, Eosinophils % (Manual) 2, Metamyelocytes % 1, Myelocytes % 2 H, Nucleated RBCs/100 WBC 6 H, Diff Path Review November emir Platelet Estimate MOD INC, Polychromasia 1+, Hypochromasia 1+, Anisocytosis 1+, Microcytosis 1+ 08/17/19 05:18: Sodium 143, Potassium 3.3 L, Chloride 119 H, Carbon Dioxide 15.0 L, Anion Gap 9, BUN 41 H, Creatinine 4.73 H, Estim Creat Clear Calc 9.63, Est GFR (MDRD) Af Amer 12 L, Est GFR (MDRD) Non-Af 10 L, BUN/Creatinine Ratio 8.7 L, Glucose 163 H, Calcium 8.1 L, Phosphorus 4.2, Magnesium 2.3 08/17/19 05:18: Phosphorus Cancelled 08/17/19 05:23: POC Glucose 142 H Current Medications Acetaminophen (Tylenol) 650 mg PO Q6H PRN PRN PRN Reason: Pain Score 1-3/Temp > 100.7 F Acetaminophen (Tylenol) 650 mg RECTAL Q4H PRN PRN PRN Reason: Pain Score 1-3/Temp > 100.7 F Acetylcysteine (Mucomyst) 800 mg INHALATION Q8H.RT [facility] Last Admin: 08/17/19 01:06 Dose: 800 mg Documented by: Albuterol Sulfate (Ventolin Aerosols) 2.5 mg INHALATION Q2H PRN PRN PRN Reason: SOB/Wheezing Albuterol/Ipratropium (Duoneb) 3 ml INHALATION Q4H.RT [facility] Last Admin: 08/17/19 06:59 Dose: 3 ml Documented by: Allopurinol (Zyloprim) 300 mg PO DAILY [facility] Last Admin: 08/16/19 12:43 Dose: Not Given Documented by: Aspirin (Ecotrin) 81 mg PO QHS [facility] Last Admin: 08/16/19 21:43 Dose: Not Given Documented by: Atorvastatin Calcium (Lipitor) 80 mg PO QHS [facility] Last Admin: 08/16/19 21:43 Dose: Not Given Documented by: Calamine/Phenol (Calmoseptine Ointment) 1 applic TOPICAL 4X/DAY [facility]; Protocol Last Admin: 08/16/19 23:08 Dose: 1 applicatio Documented by: Cholecalciferol (Vitamin D) 5,000 unit PO DAILY [facility] Last Admin: 08/16/19 12:43 Dose: Not Given Documented by: Cyanocobalamin (Vitamin B12) 1,000 mcg PO DAILY [facility] Last Admin: 08/16/19 12:43 Dose: Not Given Documented by: Glucagon () 1 mg IM .X1 PRN PRN Reason: Hypoglycemia Dextrose (Dextrose 10%-Water) 250 mls @ 999 mls/hr IV .Q16M PRN; Protocol PRN Reason: HYPOGLYCEMIA Sodium Chloride () 250 mls @ 15 mls/hr IV .[id number] PRN PRN Reason: Saline Flush Sodium Chloride () 250 mls @ 15 mls/hr IV .[id number] PRN PRN Reason: Additional IVPB Infusion Cefepime HCl 1 gm/ Sodium (Chloride) 50 mls @ 100 mls/hr IV Q24 [facility] Last Infusion: 08/16/19 11:52 Dose: Infused Documented by: Daptomycin 600 mg/ Sodium (Chloride) 62 mls @ 100 mls/hr IV Q48H [facility] Last Infusion: 08/15/19 15:02 Dose: Infused Documented by: Metronidazole (Flagyl) 500 mg in 100 mls @ 100 mls/hr IV Q8 [facility] Last Infusion: 08/17/19 06:26 Dose: Infused Documented by: Dextrose () 1,000 mls @ 100 mls/hr IV .Q10H [facility] Last Admin: 08/17/19 02:21 Dose: 100 mls/hr Documented by: Insulin Human Lispro (Humalog Kwikpen (Bkc)) 0 unit SC Q6 [facility]; Protocol Last Admin: 08/17/19 05:25 Dose: Not Given Documented by: Levothyroxine Sodium (Synthroid) 75 mcg PO DAILY@0600 [facility] Last Admin: 08/17/19 05:25 Dose: Not Given Documented by: Metoprolol Tartrate (Lopressor (Beta Armani)) 25 mg PO BID [facility] Last Admin: 08/16/19 21:43 Dose: Not Given Documented by: Metoprolol Tartrate (Lopressor (Beta Armani)) 5 mg IV Q6H PRN PRN PRN Reason: BLOOD PRESSURE Last Admin: 08/16/19 13:21 Dose: 5 mg Documented by: Nutritional Formula ([place] Flavor) [facility] Last Admin: 08/16/19 15:28 Dose: Not Given Documented by: Pantoprazole Sodium (Protonix) 40 mg PO BID [facility] Prochlorperazine Edisylate (Compazine Iv) 5 mg IV Q4H PRN PRN PRN Reason: Breakthrough Nausea/Vomiting Last Admin: 08/10/19 10:33 Dose: 5 mg Documented by: Sodium Chloride () 10 - 40 ml IV UD PRN PRN Reason: Open End PICC Flush Last Admin: 08/16/19 10:40 Dose: 40 ml Documented by: Sodium Chloride (0.9% Nacl (Sterile) Posiflush) 10 - 40 ml IV UD PRN PRN Reason: Port access or dressing change Medical Necessity - Tobacco Use Smoking Status: Former smoker Tobacco Use: Vapor Assessment/Plan All Active Problems ILIANA (acute kidney injury) (Acute) Fecal soiling due to fecal incontinence (Acute) 63-year-old female with decubitus ulcer and sepsis 1. I would be willing to perform a diverting colostomy for this patient but not while she is unstable as she is. Patient has not responded to commands and seems to be deteriorating instead of improving. I believe her labs yesterday were a lab error as today's labs perfectly match 2 days ago. Yesterday's platelet count even went down to half of what it was and then back up to previous levels today signifying that yesterday was an error. 2. Continue current treatment. Diverting colostomy when patient stabilizes. FMS if needed to control liquid stools. Tim Reyna MD Pager: [facility] [address] [place] [address], [address] [place] [address] Office:
--- NOTE | 2019-08-17 08:48 | PN_ITS ---
Progress Note I called the patient's to discuss dialysis catheter placement. I discussed the risks including but not limited to bleeding, infection, p neumothorax, DVT. The patient's understands and consents to the procedure. I will place the right temporary dialysis catheter in the right IJ at the bedside. This can be tunneled at a later date if needed. Tim Reyna MD Pager: [facility] [address] [place] [address] [address] [place] [address] Office: STROKE Vital Signs/Narrative: Vital Signs Temp Pulse Resp BP BP Pulse Ox 08/17/19 08:00 97.8 F 115 H 20 H 107/69 93 08/17/19 06:59 105 H 16 96 08/17/19 06:00 111 H 16 100/52 L 93 08/17/19 05:00 104 H 32 H 132/62 H 94
--- NOTE | 2019-08-17 09:12 | NURSING ---
ender inserted orders to move to icu called aware of transfer and gave verbal phone consent for temporary dialysis cath to be placed along with picc line
[2019-08-17] MEDS: LORazepam 2 MG/ML Syringe IV (09:50)
--- NOTE | 2019-08-17 10:03 | RAD_ITS ---
STUDY: X-RAY CHEST REASON FOR EXAM: Female, 63 years old. POST RIGHT TEMPORARY DIALYSIS CATH PLACEMENT; -- POST NG PLACEMENT TECHNIQUE: Single AP portable view of the chest. COMPARISON: 51 FINDINGS: Interval placement of right internal jugular temporal dialysis catheter with tip of the catheter overlying the superior vena cava with no pneumothorax. Interval placement of nasogastric tube with the tip below the diaphragm. Poor inspiration with some bibasilar atelectasis. There is no demonstrated pleural abnormality. There is moderate cardiac enlargement. Normal mediastinum and barrera. Normal visualized pulmonary arteries. Normal visualized aortic arch and descending thoracic aorta. Normal visualized thoracic spine. Normal visualized ribs, clavicles, and shoulders. There is no demonstrated abnormality of the visualized soft tissue structures of the upper abdomen. RAD/CXR for Line Placement IMPRESSION: 1. Interval placement of right internal jugular tunnel dialysis catheter tip the catheter overlying spur vena cava and no pneumothorax. 2. Interval placement of nasogastric tube with the tip below the diaphragm. 3. Poor inspiration with some bibasilar atelectasis Electronically Signed: Daniel Gonzales MD at 12:26 EST Tel , Service support ,
--- NOTE | 2019-08-17 10:12 | PCM.OPRPT ---
Problem List (1) Fecal soiling due to fecal incontinence Status: Acute (2) Pressure ulcer of sacral region, stage 4 Status: Chronic Comment: infected necrotizing right buttock and right sacral pressure sore, Stage IV (3) Severe obesity (BMI 35.0-35.9 with comorbidity) Status: Chronic (4) Diabetes mellitus, type II Status: Chronic Qualifiers: Report of Operation Date of Procedure: 08/17/19 Pre-Operative Diagnosis: Acute renal failure Post-Operative Diagnosis: Same Surgery/Procedure Performed:: Ultrasound-guided right temporary dialysis catheter placement utilizing right IJ Description of Procedure: Informed consent was obtained from the patient's . Patient's right neck was prepped and draped in usual sterile fashion. Ultrasound was used to localize the patient's right IJ and the patient was placed into Trendelenburg position. Anesthetic was used to numb the skin and then a needle was placed into the IJ under ultrasound guidance. Guidewire was placed. The needle was removed and a ragini was made in the skin. Serial dilators were placed over the guidewire and then the catheter was placed over guidewire. The guidewire was removed. Both ports were drawn back and flushed with saline and the both jazlyn well and flushed easily. Both were instilled with 1.5 cc of heparin. They were both clamped and capped. The catheter was then sutured to the skin using the included 2-0 nylon suture. Dressing was applied. Chest x-ray will be ordered. Grafts/Implants Used: 16 cm curved temporary dialysis catheter
[2019-08-17] MEDS: Heparin 10,000 UNITS/10 ML Vial 1000 UNITS IV (11:09)
[2019-08-17] MEDS: Allopurinol 300 MG Tablet GT (11:11)
[2019-08-17] MEDS: Cyanocobalamin 500 MCG Tablet 1000 MCG GT (11:11)
[2019-08-17] MEDS: Metoprolol Tartrate 25 MG Tablet GT ×2 (11:11→21:34)
[2019-08-17] MEDS: LANSOPRAZOLE 15 MG CAPSULE.DR 30 MG GT ×2 (11:12→21:36)
[2019-08-17] MEDS: Menthol/Lanolin/Calamine/Znox 113 GM Tube 1 APPLIC TOPICAL ×3 (11:13→21:37)
[2019-08-17] MEDS: Insulin Lispro 100 UNIT/ML INSULN.PEN SC (11:36)
[2019-08-17 12:16] LABS: Bedside Glucose 155 mg/dL (70-110)
--- NOTE | 2019-08-17 14:21 | PN_ITS ---
Patient Problems: Active and Suspected Problems ILIANA (acute kidney injury) (Acute) Subjective: No issues overnight, however this morning she is not alert and oriented, her eyes are open but she does not follow commands which is very different than the last time I saw her in the middle of last week when she was confused but was con versational. Vitals/I&O's: Vital Signs Temp Pulse Resp BP Pulse Ox 97 F L 111 H 19 H 123/82 H 92 08/17/19 14:00 08/17/19 14:00 08/17/19 14:00 08/17/19 14:00 08/17/19 14:00 Oxygen Flow Rate (L/min) 5 Oxygen Delivery Method Nasal Cannula Weight: 214 lb 1.102 oz Body Mass Index (BMI) 36.9 Finger Stick Blood Glucose 134 Intake and Output for Last 24 Hours 08/15/19 08/16/19 08/17/19 23:59 23:59 23:59 Intake Total 1668.67 / 1668.67 1495.84 / 1495.84 2270.00 / 2270.00 Output Total 400 / 400 175 / 225 200 / 200 Balance 1268.67 / 1268.67 1320.84 / 1270.84 2070.00 / 2070.00 General: Alert, No apparent distress, - - Does not respond to commands HEENT: Atraumatic, Normocephalic, Sluggish Pupils Oral: Moist Mucosa Neck: Supple Lungs: Clear to auscultation, Normal air movement, No rhonchi, No wheeze, No rales, Diminished Cardiovascular: Regular Rhythm, Normal S1, Normal S2, No murmurs, Tachycardic Abdomen: Soft, Non Tender, Non-Distended, No Hepato-splenomegaly Extremities: Capillary Refill Less than 3 Seconds, Edema Skin: No rashes, No breakdown, Ulcer/ Wound - Dressing on her right buttock is intact Neurological: - - Given her lack of following commands cannot examine Psych/Mental Status: Flat Affect Microbiology Past 72 Hours 08/17/19 00:15 Sputum, Tracheal Aspirate Gram Stain - Final 08/11/19 13:21 Bone - Buttock Gram Stain - Final 08/11/19 13:21 Bone - Buttock Wound Culture - Final Meth. resistant Staph. aureus Corynebacterium striatum 08/11/19 13:21 Bone - Buttock Anaerobic Culture - Final Bacteroides vulgatus 08/11/19 06:40 Blood Culture (Wb) - Left Wrist Blood Culture - Final No growth in 5 days. 08/11/19 06:55 Blood Culture (Wb) - Left Wrist Blood Culture - Final No growth in 5 days. 08/09/19 06:35 Blood Culture (Wb) - Pic Blood Culture - Final No growth in 5 days. 08/13/19 23:00 Stool C. difficile GDH Antigen & Toxins - Final 08/13/19 23:00 Stool C. difficile DNA Amplification - Final 08/11/19 13:15 Tissue - Buttock Gram Stain - Final 08/11/19 13:15 Tissue - Buttock Wound Culture - Final Meth. resistant Staph. aureus Presumptive C albicans 08/11/19 13:15 Tissue - Buttock Anaerobic Culture - Final No anaerobic bacteria isolated. 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, Corrected WBC 35.7 H*, RBC 3.16 L, Hgb 10.0 L, Hct 32.9 L, MCV 104.1 H, MCH 31.6, MCHC 30.4 L, RDW Std Deviation 66.1 H, RDW Coeff of Harper 17.6 H, Plt Count 537 H, MPV 8.8, Neut % (Auto) Not Reportable, Absolute Neuts (auto) 26.8 H, Absolute Lymphs (auto) 5.71 H, Total Counted 100, Neutrophils % (Manual) 69, Band Neutrophils % 6 H, Lymphocytes % (Manual) 16 L, Monocytes % (Manual) 4, Eosinophils % (Manual) 2, Metamyelocytes % 1, Myelocytes % 2 H, Nucleated RBCs/100 WBC 6 H, Diff Path Review November, Platelet Estimate MOD INC, Polychromasia 1+, Hypochromasia 1+, Anisocytosis 1+, Microcytosis 1+ 08/17/19 05:18: Sodium 143, Potassium 3.3 L, Chloride 119 H, Carbon Dioxide 15.0 L, Anion Gap 9, BUN 41 H, Creatinine 4.73 H, Estim Creat Clear Calc 9.63, Est GFR (MDRD) Af Amer 12 L, Est GFR (MDRD) Non-Af 10 L, BUN/Creatinine Ratio 8.7 L, Glucose 163 H, Calcium 8.1 L, Phosphorus 4.2, Magnesium 2.3 08/17/19 05:18: Phosphorus Cancelled 08/17/19 05:23: POC Glucose 142 H 08/17/19 11:17: POC Glucose 155 H Current Medications Acetaminophen (Tylenol) 650 mg RECTAL Q4H PRN PRN PRN Reason: Pain Score 1-3/Temp > 100.7 F Acetaminophen (Tylenol Liquid) 650 mg GT Q6H PRN PRN PRN Reason: PAIN 1-3/ TEMP >100.7 Acetylcysteine (Mucomyst) 800 mg INHALATION Q8H.RT [facility] Last Admin: 08/17/19 01:06 Dose: 800 mg Documented by: Albuterol Sulfate (Ventolin Aerosols) 2.5 mg INHALATION Q2H PRN PRN PRN Reason: SOB/Wheezing Albuterol/Ipratropium (Duoneb) 3 ml INHALATION Q4H.RT [facility] Last Admin: 08/17/19 10:24 Dose: 3 ml Documented by: Allopurinol (Zyloprim) 300 mg GT DAILY [facility] Last Admin: 08/17/19 11:11 Dose: 300 mg Documented by: Aspirin (Aspirin, Baby) 81 mg GT QHS [facility] Atorvastatin Calcium (Lipitor) 80 mg GT QHS [facility] Calamine/Phenol (Calmoseptine Ointment) 1 applic TOPICAL 4X/DAY [facility]; Protocol Last Admin: 08/17/19 11:13 Dose: 1 applicatio Documented by: Cholecalciferol (Vitamin D) 5,000 unit GT DAILY [facility] Last Admin: 08/17/19 11:13 Dose: 5,000 unit Documented by: Cyanocobalamin (Vitamin B12) 1,000 mcg GT DAILY [facility] Last Admin: 08/17/19 11:11 Dose: 1,000 mcg Documented by: Glucagon () 1 mg IM .X1 PRN PRN Reason: Hypoglycemia Dextrose (Dextrose 10%-Water) 250 mls @ 999 mls/hr IV .Q16M PRN; Protocol PRN Reason: HYPOGLYCEMIA Sodium Chloride () 250 mls @ 15 mls/hr IV .[id number] PRN PRN Reason: Saline Flush Sodium Chloride () 250 mls @ 15 mls/hr IV .[id number] PRN PRN Reason: Additional IVPB Infusion Cefepime HCl 1 gm/ Sodium (Chloride) 50 mls @ 100 mls/hr IV Q24 [facility] Last Infusion: 08/17/19 11:38 Dose: Infused Documented by: Daptomycin 600 mg/ Sodium (Chloride) 62 mls @ 100 mls/hr IV Q48H [facility] Last Admin: 08/17/19 13:15 Dose: 100 mls/hr Documented by: Metronidazole (Flagyl) 500 mg in 100 mls @ 100 mls/hr IV Q8 [facility] Last Infusion: 08/17/19 06:26 Dose: Infused Documented by: Dextrose () 1,000 mls @ 100 mls/hr IV .Q10H [facility] Last Admin: 08/17/19 11:31 Dose: 100 mls/hr Documented by: Insulin Human Lispro (Humalog Kwikpen (Bkc)) 0 unit SC Q6 [facility]; Protocol Last Admin: 08/17/19 11:36 Dose: 1 unit Documented by: Lansoprazole (Lansoprazole) 30 mg GT BID [facility] Last Admin: 08/17/19 11:12 Dose: 30 mg Documented by: Levothyroxine Sodium (Synthroid) 75 mcg GT DAILY@0600 [facility] Metoprolol Tartrate (Lopressor (Beta Armani)) 5 mg IV Q6H PRN PRN PRN Reason: BLOOD PRESSURE Last Admin: 08/16/19 13:21 Dose: 5 mg Documented by: Metoprolol Tartrate (Lopressor (Beta Armani)) 25 mg GT BID [facility] Last Admin: 08/17/19 11:11 Dose: 25 mg Documented by: Nutritional Formula ([place] - [place] Flavor) 1 packet GT BIDCM [facility] Prochlorperazine Edisylate (Compazine Iv) 5 mg IV Q4H PRN PRN PRN Reason: Breakthrough Nausea/Vomiting Last Admin: 08/10/19 10:33 Dose: 5 mg Documented by: Sodium Chloride () 10 - 40 ml IV UD PRN PRN Reason: Open End PICC Flush Last Admin: 08/16/19 10:40 Dose: 40 ml Documented by: Sodium Chloride (0.9% Nacl (Sterile) Posiflush) 10 - 40 ml IV UD PRN PRN Reason: Port access or dressing change Vancomycin HCl () 125 mg PO Q6 [facility] Last Admin: 08/17/19 12:06 Dose: 125 mg Documented by: STROKE Vital Signs/Narrative: Vital Signs Temp Pulse Resp BP BP Pulse Ox 08/17/19 14:00 97 F L 111 H 19 H 123/82 H 92 08/17/19 13:00 113 H 20 H 116/62 92 08/17/19 12:35 116 H 08/17/19 12:00 96.9 F L 124 H 21 H 130/84 H 92 08/17/19 11:45 131 H 21 H 133/87 H 91 08/17/19 11:30 130 H 20 H 118/63 92 08/17/19 11:15 131 H 21 H 128/80 H 92 08/17/19 11:11 133 H 133/75 H 08/17/19 11:00 133 H 19 H 133/75 H 92 08/17/19 10:45 128 H 22 H 154/121 H 93 08/17/19 10:30 118 H 30 H 132/91 H 92 08/17/19 10:24 124 H 24 H Medical Necessity - Tobacco Use Smoking Status: Former smoker Tobacco Use: Vapor Assessment/Plan All Active Problems ILIANA (acute kidney injury) (Acute) Fecal soiling due to fecal incontinence (Acute) 1. Severe sepsis secondary to a stage IV pressors for as well as osteo/acute metabolic encephalopathy secondary to sepsis and infection -She has been on multiple antibiotics, currently she is on Flagyl, cefepime, and daptomycin based on MRSA culture data as well as Bacteroides and corynebacterium -She remains with a very high leukocytosis therefore an NG tube was placed and she was started on p.o. vancomycin to make sure that there is adequate treatment for the potential C. difficile she is positive for the antigen but negative for the toxin, will discuss with infectious disease tomorrow if adding antifungal coverage at this point would make a difference -Given her condition will transfer to the ICU today, an NG tube was placed therefore she was also started on PPI 2. Acute renal failure causing some component of metabolic encephalopathy/hypernatremia and hyperchloremia -Dialysis catheter was placed today and will start with dialysis -Appreciate nephrology's assistance -Now that she has an NG tube can resume oral medications including her allopurinol 3. Acute on chronic hypercapnic respiratory failure -Appreciate pulmonology's input, continue with A. fib while sleeping 4. DM 2 -We will hold her oral medications and continue with sliding scale insulin -Accu-Cheks AC at bedtime 5. Anxiety/depression/bipolar -She can restart her medications when she becomes more alert at this time wanting to rule out that her medications have not caused significant sedation g iven her renal failure 6. HTN/HLD -Her blood pressures have been soft and since she will be started on dialysis will hold her blood pressure medications -Can continue her statin 7. Hypothyroidism -Her Synthroid has been held since she was n.p.o., it has been restarted since NG tube was placed -I cannot find evidence of a TSH therefore will obtain 1 8. GERD -Continue with PPI per NG tube DVT: Lovenox Code Visit Inpatient E&M: 74626 Subs Hosp L2
[2019-08-17] MEDS: Heparin 10,000 UNITS/10 ML Vial IV (16:40)
[2019-08-17 17:35] LABS: Bedside Glucose 140 mg/dL (70-110)
--- NOTE | 2019-08-17 18:43 | DIALYSIS ---
Pt completed 2 hours hemodialysis ending positive for 500ml due to low blood pressures and tachycardia. Dr. Haji updated throughout treatment of blood pressures and being started on iv levophed. Dr. Haji stated will attempted hemodialysis with fluid removal tomorrow. CVC with good push and pull and flush and locked with heparin per order.
[2019-08-17 18:44] LABS: Anion Gap 9 (5-15); BUN 32 mg/dL (7-18); BUN/Creat Ratio 7.6 RATIO (10-20); Calcium,Total 8.7 mg/dL (8.5-10.1); Chloride 114 mmol/L (98-107); Creatinine, Serum 4.23 mg/dL (0.55-1.02); EST Glomerular Filtration Rate 11 mL/min (>60); Est Glom Filt Rate - Afr Amer 14 mL/min (>60); Estimated Creatinine Clearance 10.77 ml/min; Glucose 165 mg/dL (74-106); Potassium 3.7 mmol/L (3.5-5.1); Sodium Level 141 mmol/L (136-145)
--- NOTE | 2019-08-17 20:06 | PCM.PN.REN ---
Patient Problems: Active and Suspected Problems ILIANA (acute kidney injury) (Acute) Subjective: Following for ILIANA. Pt moved to ICU earlier today. She is still obtunded. Unable to do ROS today. Did require norepinephrine drip during dialysis. - Physical Exam Vitals/I&O's: Vital Signs Temp Pulse Resp BP Pulse Ox 96.8 F L 106 H 19 H 97/58 L 95 08/17/19 18:00 08/17/19 19:00 08/17/19 18:57 08/17/19 19:00 08/17/19 18:59 Oxygen Flow Rate (L/min) 5 Oxygen Delivery Method Nasal Cannula Weight: 97.1 kg Body Mass Index (BMI) 36.9 Finger Stick Blood Glucose 134 Intake and Output for Last 24 Hours 08/15/19 08/16/19 08/17/19 23:59 23:59 23:59 Intake Total 1668.67 / 1668.67 1495.84 / 1495.84 3655.52 / 3655.52 Output Total 400 / 400 175 / 225 250 / 250 Balance 1268.67 / 1268.67 1320.84 / 1270.84 3405.52 / 3405.52 General: Lethargic HEENT: Atraumatic, Normocephalic Oral: Moist Mucosa Neck: Supple Lungs: Rhonchi - Bilaterally Cardiovascular: Normal S1, Normal S2, No murmurs, Tachycardic Abdomen: Soft, Non Tender, Non-Distended Extremities: Edema, - - Anasarca Microbiology Past 72 Hours 08/17/19 00:15 Sputum, Tracheal Aspirate Gram Stain - Final 08/11/19 13:21 Bone - Buttock Gram Stain - Final 08/11/19 13:21 Bone - Buttock Wound Culture - Final Meth. resistant Staph. aureus Corynebacterium striatum 08/11/19 13:21 Bone - Buttock Anaerobic Culture - Final Bacteroides vulgatus 08/11/19 06:40 Blood Culture (Wb) - Left Wrist Blood Culture - Final No growth in 5 days. 08/11/19 06:55 Blood Culture (Wb) - Left Wrist Blood Culture - Final No growth in 5 days. 08/09/19 06:35 Blood Culture (Wb) - Pic Blood Culture - Final No growth in 5 days. 08/13/19 23:00 Stool C. difficile GDH Antigen & Toxins - Final 08/13/19 23:00 Stool C. difficile DNA Amplification - Final Laboratory Results 08/16/19 21:09: Specimen Type ART, Sample Site R Radial, pH 7.29 L, Bicarbonate Actual 15.0 L, POC Total CO2 16, Base Excess -12 L, O2 Saturation 91 L, ABG pCO2 31.1 L, ABG pO2 66 L, Ramy Test POS, O2 Delivery Device Nasal Can, Liter Flow 2.0, Blood Gas Notified Whom KRISTEL MARES, Blood Gas Notified Time 2100 08/16/19 23:02: POC Glucose 162 H 08/17/19 05:18: WBC [employer], Corrected WBC 35.7 H*, RBC 3.16 L, Hgb 10.0 L, Hct 32.9 L, MCV 104.1 H, MCH 31.6, MCHC 30.4 L, RDW Std Deviation 66.1 H, RDW Coeff of Harper 17.6 H, Plt Count 537 H, MPV 8.8, Neut % (Auto) Not Reportable, Absolute Neuts (auto) 26.8 H, Absolute Lymphs (auto) 5.71 H, Total Counted 100, Neutrophils % (Manual) 69, Band Neutrophils % 6 H, Lymphocytes % (Manual) 16 L, Monocytes % (Manual) 4, Eosinophils % (Manual) 2, Metamyelocytes % 1, Myelocytes % 2 H, Nucleated RBCs/100 WBC 6 H, Diff Path Review November, Platelet Estimate MOD INC, Polychromasia 1+, Hypochromasia 1+, Anisocytosis 1+, Microcytosis 1+ 08/17/19 05:18: Sodium 143, Potassium 3.3 L, Chloride 119 H, Carbon Dioxide 15.0 L, Anion Gap 9, BUN 41 H, Creatinine 4.73 H, Estim Creat Clear Calc 9.63, Est GFR (MDRD) Af Amer 12 L, Est GFR (MDRD) Non-Af 10 L, BUN/Creatinine Ratio 8.7 L, Glucose 163 H, Calcium 8.1 L, Phosphorus 4.2, Magnesium 2.3 08/17/19 05:18: Phosphorus Cancelled 08/17/19 05:18: TSH 10.60 H 08/17/19 05:23: POC Glucose 142 H 08/17/19 11:17: POC Glucose 155 H 08/17/19 17:10: POC Glucose 140 H 08/17/19 17:20: Hep B Core Total Ab Pending, Hep B Core IgM Ab Pending 08/17/19 17:20: Hep Bs Antigen Pending, Hep Bs Antibody Pending 08/17/19 18:20: Sodium 141, Potassium 3.7, Chloride 114 H, Carbon Dioxide 18.0 L, Anion Gap 9, BUN 32 H, Creatinine 4.23 H, Estim Creat Clear Calc 10.77, Est GFR (MDRD) Af Amer 14 L, Est GFR (MDRD) Non-Af 11 L, BUN/Creatinine Ratio 7.6 L, Glucose 165 H, Calcium 8.7 Current Medications Acetaminophen (Tylenol Liquid) 650 mg GT Q6H PRN PRN PRN Reason: PAIN 1-3/ TEMP >100.7 Acetylcysteine (Mucomyst) 800 mg INHALATION Q8H.RT [facility] Last Admin: 08/17/19 19:01 Dose: Not Given Documented by: Albuterol Sulfate (Ventolin Aerosols) 2.5 mg INHALATION Q2H PRN PRN PRN Reason: SOB/Wheezing Albuterol/Ipratropium (Duoneb) 3 ml INHALATION Q4H.RT [facility] Last Admin: 08/17/19 18:58 Dose: 3 ml Documented by: Allopurinol (Zyloprim) 300 mg GT DAILY [facility] Last Admin: 08/17/19 11:11 Dose: 300 mg Documented by: Aspirin (Aspirin, Baby) 81 mg GT QHS [facility] Atorvastatin Calcium (Lipitor) 80 mg GT QHS DUONG Calamine/Phenol (Calmoseptine Ointment) 1 applic TOPICAL 4X/DAY [facility]; Protocol Last Admin: 08/17/19 17:11 Dose: 1 applicatio Documented by: Cholecalciferol (Vitamin D) 5,000 unit GT DAILY [facility] Last Admin: 08/17/19 11:13 Dose: 5,000 unit Documented by: Cyanocobalamin (Vitamin B12) 1,000 mcg GT DAILY [facility] Last Admin: 08/17/19 11:11 Dose: 1,000 mcg Documented by: Glucagon () 1 mg IM .X1 PRN PRN Reason: Hypoglycemia Dextrose (Dextrose 10%-Water) 250 mls @ 999 mls/hr IV .Q16M PRN; Protocol PRN Reason: HYPOGLYCEMIA Sodium Chloride () 250 mls @ 15 mls/hr IV .[id number] PRN PRN Reason: Saline Flush Sodium Chloride () 250 mls @ 15 mls/hr IV .[id number] PRN PRN Reason: Additional IVPB Infusion Cefepime HCl 1 gm/ Sodium (Chloride) 50 mls @ 100 mls/hr IV Q24 [facility] Last Infusion: 08/17/19 11:38 Dose: Infused Documented by: Daptomycin 600 mg/ Sodium (Chloride) 62 mls @ 100 mls/hr IV Q48H [facility] Last Infusion: 08/17/19 13:55 Dose: Infused Documented by: Metronidazole (Flagyl) 500 mg in 100 mls @ 100 mls/hr IV Q8 [facility] Last Infusion: 08/17/19 18:10 Dose: Infused Documented by: Norepinephrine Bitartrate 8 mg (/ Sodium Chloride) 250 mls @ 9.375 mls/hr CONT INF .[id number] [facility]; Protocol Last Titration: 08/17/19 19:00 Dose: 0 mcg/min, 0 mls/hr Documented by: Insulin Human Lispro (Humalog Kwwilliampen (Bkc)) 0 unit SC Q6 [facility]; Protocol Last Admin: 08/17/19 17:11 Dose: Not Given Documented by: Lansoprazole (Lansoprazole) 30 mg GT BID [facility] Last Admin: 08/17/19 11:12 Dose: 30 mg Documented by: Levothyroxine Sodium (Synthroid) 75 mcg GT DAILY@0600 [facility] Metoprolol Tartrate (Lopressor (Beta Armani)) 5 mg IV Q6H PRN PRN PRN Reason: BLOOD PRESSURE Last Admin: 08/16/19 13:21 Dose: 5 mg Documented by: Metoprolol Tartrate (Lopressor (Beta Armani)) 25 mg GT BID [facility] Last Admin: 08/17/19 11:11 Dose: 25 mg Documented by: Nutritional Formula ([place] - [place] Flavor) [facility] Last Admin: 08/17/19 17:11 Dose: 1 packet Documented by: Prochlorperazine Edisylate (Compazine Iv) 5 mg IV Q4H PRN PRN PRN Reason: Breakthrough Nausea/Vomiting Last Admin: 08/10/19 10:33 Dose: 5 mg Documented by: Sodium Chloride () 10 - 40 ml IV UD PRN PRN Reason: Open End PICC Flush Last Admin: 08/16/19 10:40 Dose: 40 ml Documented by: Sodium Chloride (0.9% Nacl (Sterile) Posiflush) 10 - 40 ml IV UD PRN PRN Reason: Port access or dressing change Vancomycin HCl () 125 mg PO Q6 [facility] Last Admin: 08/17/19 17:11 Dose: 125 mg Documented by: Medical Necessity - Tobacco Use Smoking Status: Former smoker Tobacco Use: Vapor Assessment/Plan All Active Problems ILIANA (acute kidney injury) (Acute) Fecal soiling due to fecal incontinence (Acute) 1. ILIANA. normal baseline renal function. Now worsening. Cr increased from 3.83 on 08/17/19 to 4.73 today. Patient has severe sepsis likely related to sacral decubitus ulcer. Renal US without hydronephrosis ILIANA is likely due to ATN due to ischemia related to sepsis. She is anuric x 3 days. Did not respond to Lasix overnight. Discussed the need for dialysis with pt's (Ramon Morfin) last night and today. Proceeded with dialysis today. Appreciate Dr. Reyna's help with dialysis vascular access. Unable to remove fluid with dialysis today due to low BP. This was discussed with Dr. Sy. Hopefully BP will improve with improvement of acidosis with HD. Will assess for fluid removal tomorrow with her second dialysis treatment. Plan on dialysis again tomorrow. 2. Hypernatremia. Can stop D5W. Na level should stabilize with dialysis. 3. Acidosis. Serum HCO3 is worse at 15 this am. Dialysis should help. Recheck serum HCO3 in am. 4. Severe sepsis. secondary to infected decubitus ulcer/osteomyelitis. Antibiotics as per ID. Would give cefepime and daptomycin after dialysis.
--- NOTE | 2019-08-17 20:10 | NURSING ---
at bedside, careplan reviewed; no new orders at this time.
[2019-08-17] MEDS: Aspirin 81 MG TAB.CHEW GT (21:35)
[2019-08-17] MEDS: Atorvastatin Calcium 80 MG Tablet GT (21:35)
--- NOTE | 2019-08-17 23:39 | CPS ---
pt placed on bipap did not ramsey well taken off after 8 min-nurse in room
[2019-08-18] VITALS (82 sets, daily range): BP systolic 64–152; BP diastolic 22–109; PULSE 98–131; RESP 14–29; TEMP 36–36.8; O2SAT 88–100
--- NOTE | 2019-08-18 01:00 | NURSING ---
Pt having audible resp congestion w/p.ox reading 88%, pt sxnd w/yankeur for mod amt frothy white secretions;pt positive for cough/gag reflexes at this time. O2 saturation up to 89% s/p sxn, pt placed on 50%VM and NC removed.
[2019-08-18] MEDS: Ipratropium/Albuterol Sulfate 3 ML AMPUL.NEB INHALATION ×5 (03:02→22:40)
--- NOTE | 2019-08-18 07:02 | PN_ITS ---
Subjective: The patient was seen and examined at the bedside this morning. Events from the last 24 hours have been reviewed. The patient is currently afebrile, but is requiring Levophed at 10 mcg/min to maintain hemodynamic stability. She remains on AVAPS therapy, but is primarily only responsive to noxious stimulation. There are tentative plans for hemodialysis this morning. Objective: The patient's most recent lab work, culture data and imaging studies have all been personally reviewed. General: Lethargic, - - Withdraws to painful stimulation. HEENT: Atraumatic, Normocephalic, - - Dilated pupils with roving eye movements Oral: Dry Mucosa Neck: Supple, No Nodes, Trachea Midline Lungs: Diminished, Rales Cardiovascular: Normal S1, Normal S2, No murmurs, Tachycardic Abdomen: Bowel Sounds Present, Soft, Obese Extremities: No cyanosis, Edema Skin: Ulcer/ Wound Musculoskeletal: No Muscle Wasting Lymphatic: No Cervical, Supraclavicular, or Inguinal Adenopathy Neurological: - - Largely nonresponsive to verbal stimulation. Psych/Mental Status: Flat Affect Vital Signs Temp Pulse Resp BP Pulse Ox 97.7 F L 99 15 112/44 L 98 08/18/19 04:00 08/18/19 06:49 08/18/19 06:49 08/18/19 06:30 08/18/19 06:49 Oxygen Flow Rate (L/min) 40 Oxygen Delivery Method Bi-pap Weight: 222 lb 0.088 oz Body Mass Index (BMI) 36.9 Finger Stick Blood Glucose 134 Intake and Output for Last 24 Hours 08/16/19 08/17/19 08/18/19 23:59 23:59 23:59 Intake Total 1495.84 / 1495.84 3855.52 / 3855.52 32.90 / 32.90 Output Total 175 / 225 250 / 300 100 / 100 Balance 1320.84 / 1270.84 3605.52 / 3555.52 -67.10 / -67.10 Labs (Last 48 Hours) 08/16/19 08/16/19 08/16/19 05:44 05:44 12:48 WBC Corrected WBC RBC Hgb Hct MCV MCH MCHC RDW Std Deviation RDW Coeff of Harper Plt Count MPV Neut % (Auto) Absolute Neuts (auto) 8.7 H Absolute Lymphs (auto) 2.63 Total Counted 100 Neutrophils % (Manual) 60 Band Neutrophils % 3 Lymphocytes % (Manual) 19 Monocytes % (Manual) 6 Eosinophils % (Manual) 6 H Metamyelocytes % 1 Myelocytes % 5 H Nucleated RBCs/100 WBC 1 Diff Path Review May foll Platelet Estimate Polychromasia RARE Hypochromasia Anisocytosis 1+ Microcytosis Specimen Type Sample Site pH Bicarbonate Actual POC Total CO2 Base Excess O2 Saturation ABG pCO2 ABG pO2 Ramy Test O2 Delivery Device Liter Flow Blood Gas Notified Whom Blood Gas Notified Time Sodium Potassium Chloride Carbon Dioxide Anion Gap BUN Creatinine Estim Creat Clear Calc Est GFR (MDRD) Af Amer Est GFR (MDRD) Non-Af BUN/Creatinine Ratio Glucose Calcium Phosphorus Magnesium 2.2 TSH Hep Bs Antigen Hep Bs Antibody Hep B Core Total Ab Hep B Core IgM Ab POC Glucose 119 H 08/16/19 08/16/19 08/16/19 13:05 17:49 21:09 WBC Corrected WBC RBC Hgb Hct MCV MCH MCHC RDW Std Deviation RDW Coeff of Harper Plt Count MPV Neut % (Auto) Absolute Neuts (auto) Absolute Lymphs (auto) Total Counted Neutrophils % (Manual) Band Neutrophils % Lymphocytes % (Manual) Monocytes % (Manual) Eosinophils % (Manual) Metamyelocytes % Myelocytes % Nucleated RBCs/100 WBC Diff Path Review Platelet Estimate Polychromasia Hypochromasia Anisocytosis Microcytosis Specimen Type ART Sample Site R Radial pH 7.29 L Bicarbonate Actual 15.0 L POC Total CO2 16 Base Excess -12 L O2 Saturation 91 L ABG pCO2 31.1 L ABG pO2 66 L Ramy Test POS O2 Delivery Device Nasal Can Liter Flow 2.0 Blood Gas Notified Whom [facility] Blood Gas Notified Time 2100 Sodium 147 H Potassium 4.2 Chloride 123 H Carbon Dioxide 17.0 L Anion Gap 7 BUN 39 H Creatinine 4.22 H Estim Creat Clear Calc 10.79 Est GFR (MDRD) Af Amer 14 L Est GFR (MDRD) Non-Af 11 L BUN/Creatinine Ratio 9.2 L Glucose 125 H Calcium 8.2 L Phosphorus Magnesium TSH Hep Bs Antigen Hep Bs Antibody Hep B Core Total Ab Hep B Core IgM Ab POC Glucose 130 H 08/16/19 08/17/19 08/17/19 23:02 05:18 05:18 WBC [employer] Corrected WBC 35.7 H* RBC 3.16 L Hgb 10.0 L Hct 32.9 L MCV 104.1 H MCH 31.6 MCHC 30.4 L RDW Std Deviation 66.1 H RDW Coeff of Harper 17.6 H Plt Count 537 H MPV 8.8 Neut % (Auto) Not Reportable Absolute Neuts (auto) 26.8 H Absolute Lymphs (auto) 5.71 H Total Counted 100 Neutrophils % (Manual) 69 Band Neutrophils % 6 H Lymphocytes % (Manual) 16 L Monocytes % (Manual) 4 Eosinophils % (Manual) 2 Metamyelocytes % 1 Myelocytes % 2 H Nucleated RBCs/100 WBC 6 H Diff Path Review May foll Platelet Estimate MOD INC Polychromasia 1+ Hypochromasia 1+ Anisocytosis 1+ Microcytosis 1+ Specimen Type Sample Site pH Bicarbonate Actual POC Total CO2 Base Excess O2 Saturation ABG pCO2 ABG pO2 Ramy Test O2 Delivery Device Liter Flow Blood Gas Notified Whom Blood Gas Notified Time Sodium 143 Potassium 3.3 L Chloride 119 H Carbon Dioxide 15.0 L Anion Gap 9 BUN 41 H Creatinine 4.73 H Estim Creat Clear Calc 9.63 Est GFR (MDRD) Af Amer 12 L Est GFR (MDRD) Non-Af 10 L BUN/Creatinine Ratio 8.7 L Glucose 163 H Calcium 8.1 L Phosphorus 4.2 Magnesium 2.3 TSH Hep Bs Antigen Hep Bs Antibody Hep B Core Total Ab Hep B Core IgM Ab POC Glucose 162 H 08/17/19 08/17/19 08/17/19 05:18 05:18 05:23 WBC Corrected WBC RBC Hgb Hct MCV MCH MCHC RDW Std Deviation RDW Coeff of Harper Plt Count MPV Neut % (Auto) Absolute Neuts (auto) Absolute Lymphs (auto) Total Counted Neutrophils % (Manual) Band Neutrophils % Lymphocytes % (Manual) Monocytes % (Manual) Eosinophils % (Manual) Metamyelocytes % Myelocytes % Nucleated RBCs/100 WBC Diff Path Review Platelet Estimate Polychromasia Hypochromasia Anisocytosis Microcytosis Specimen Type Sample Site pH Bicarbonate Actual POC Total CO2 Base Excess O2 Saturation ABG pCO2 ABG pO2 Ramy Test O2 Delivery Device Liter Flow Blood Gas Notified Whom Blood Gas Notified Time Sodium Potassium Chloride Carbon Dioxide Anion Gap BUN Creatinine Estim Creat Clear Calc Est GFR (MDRD) Af Amer Est GFR (MDRD) Non-Af BUN/Creatinine Ratio Glucose Calcium Phosphorus Cancelled Magnesium TSH 10.60 H Hep Bs Antigen Hep Bs Antibody Hep B Core Total Ab Hep B Core IgM Ab POC Glucose 142 H 08/17/19 08/17/19 08/17/19 11:17 17:10 17:20 WBC Corrected WBC RBC Hgb Hct MCV MCH MCHC RDW Std Deviation RDW Coeff of Harper Plt Count MPV Neut % (Auto) Absolute Neuts (auto) Absolute Lymphs (auto) Total Counted Neutrophils % (Manual) Band Neutrophils % Lymphocytes % (Manual) Monocytes % (Manual) Eosinophils % (Manual) Metamyelocytes % Myelocytes % Nucleated RBCs/100 WBC Diff Path Review Platelet Estimate Polychromasia Hypochromasia Anisocytosis Microcytosis Specimen Type Sample Site pH Bicarbonate Actual POC Total CO2 Base Excess O2 Saturation ABG pCO2 ABG pO2 Ramy Test O2 Delivery Device Liter Flow Blood Gas Notified Whom Blood Gas Notified Time Sodium Potassium Chloride Carbon Dioxide Anion Gap BUN Creatinine Estim Creat Clear Calc Est GFR (MDRD) Af Amer Est GFR (MDRD) Non-Af BUN/Creatinine Ratio Glucose Calcium Phosphorus Magnesium TSH Hep Bs Antigen Hep Bs Antibody Hep B Core Total Ab Pending Hep B Core IgM Ab Pending POC Glucose 155 H 140 H 08/17/19 08/17/19 17:20 18:20 WBC Corrected WBC RBC Hgb Hct MCV MCH MCHC RDW Std Deviation RDW Coeff of Harper Plt Count MPV Neut % (Auto) Absolute Neuts (auto) Absolute Lymphs (auto) Total Counted Neutrophils % (Manual) Band Neutrophils % Lymphocytes % (Manual) Monocytes % (Manual) Eosinophils % (Manual) Metamyelocytes % Myelocytes % Nucleated RBCs/100 WBC Diff Path Review Platelet Estimate Polychromasia Hypochromasia Anisocytosis Microcytosis Specimen Type Sample Site pH Bicarbonate Actual POC Total CO2 Base Excess O2 Saturation ABG pCO2 ABG pO2 Ramy Test O2 Delivery Device Liter Flow Blood Gas Notified Whom Blood Gas Notified Time Sodium 141 Potassium 3.7 Chloride 114 H Carbon Dioxide 18.0 L Anion Gap 9 BUN 32 H Creatinine 4.23 H Estim Creat Clear Calc 10.77 Est GFR (MDRD) Af Amer 14 L Est GFR (MDRD) Non-Af 11 L BUN/Creatinine Ratio 7.6 L Glucose 165 H Calcium 8.7 Phosphorus Magnesium TSH Hep Bs Antigen Pending Hep Bs Antibody Pending Hep B Core Total Ab Hep B Core IgM Ab POC Glucose Microbiology 08/17/19 00:15 Sputum, Tracheal Aspirate Gram Stain - Final 08/11/19 13:21 Bone - Buttock Gram Stain - Final 08/11/19 13:21 Bone - Buttock Wound Culture - Final Meth. resistant Staph. aureus Corynebacterium striatum 08/11/19 13:21 Bone - Buttock Anaerobic Culture - Final Bacteroides vulgatus 08/11/19 06:40 Blood Culture (Wb) - Left Wrist Blood Culture - Final No growth in 5 days. 08/11/19 06:55 Blood Culture (Wb) - Left Wrist Blood Culture - Final No growth in 5 days. Clinical Impression(s) from Imaging Studies Chest X-Ray 08/09/19 15:11 IMPRESSION: No major interval change. Electronically Signed: Jimmy Lara DO at 16:14 EST Tel [phone], Service support , Chest CT 08/10/19 19:00 IMPRESSION: Bilateral lower lobe atelectasis, right maternal left with mild right-sided pleural effusion. Mild ascites. No focal infiltrate or pleural effusion. Electronically Signed: Yohana Del Rio MD at 4:05 EST , Service support , Pelvis CT 08/11/19 07:52 IMPRESSION: Large soft tissue gap most likely secondary to debridement overlying the right gluteus muscle. Focal scalloping of the posterior margin of the right hemisacrum. Osteomyelitis should be ruled out. Electronically Signed: Alan Dennis, at 11:07 EST , Service support , Chest X-Ray 08/12/19 13:59 IMPRESSION: Cardiomegaly with increased pleural effusions. Low volume with compression atelectasis as described. No acute superimposed finding. Electronically Signed: Jerod Pascal MD at 14:55 EST , Service support , Chest Ultrasound 08/13/19 08:47 IMPRESSION: Tiny pleural effusion. Electronically Signed: Alan Sonny, at 15:53 EST , Service support , Renal Ultrasound 08/13/19 12:47 IMPRESSION: Normal renal ultrasound bilaterally with no changes from prior exam. Empty urinary bladder by Ahmadi catheter. Electronically Signed: Karolina Graham MD at 15:44 EST , Service support , Chest X-Ray 08/17/19 01:55 IMPRESSION: Decreasing lung expansion. Increasing pulmonary edema. Likely increasing atelectasis within the right lower lobe, possibly increasing consolidation and infection within the right lower lobe.. at 0331 Reported and signed by: Mendez Smith MD Electronically Signed: Mendez Smith MD at 3:30 EST Tel , Service support , Chest X-Ray 08/17/19 10:03 IMPRESSION: 1. Interval placement of right internal jugular tunnel dialysis catheter tip the catheter overlying spur vena cava and no pneumothorax. 2. Interval placement of nasogastric tube with the tip below the diaphragm. 3. Poor inspiration with some bibasilar atelectasis Electronically Signed: Daniel Gonzales MD at 12:26 EST Tel , Service support , Medical Necessity - Tobacco Use Smoking Status: Former smoker Tobacco Use: Vapor Assessment/Plan All Active Problems ILIANA (acute kidney injury) (Acute) Fecal soiling due to fecal incontinence (Acute) RECOMMENDATIONS: 1. Check CBC with differential, complete metabolic profile, free T4 level and ammonia. 2. Obtain arterial blood gas. Continue transcutaneous CO2 monitoring. 3. Continue AVAPS. 4. Continue antibiotics per ID recommendations. 5. If morning lab work is unremarkable, will obtain CT head and EEG. Once completed, neurology consultation will be obtained. 6. Continue hemodialysis support per nephrology recommendations. 7. Wean Levophed to maintain a mean arterial pressure at or above 65 mmHg. IMPRESSIONS: 1. Septic shock secondary to sacral osteomyelitis Continue current supportive measures with antimicrobial therapy per ID recommendations along with vasopressor support in an attempt to maintain a mean arterial pressure at or above 65 mmHg. 2. Encephalopathy Although metabolic etiologies are a possibility, I am concerned that given the patient's recurrent apneic events and eye movements noted on exam this morning, that she may have underlying seizure activity that is nonconvulsive in nature. Therefore, if her preliminary morning lab work is unrevealing, will obtain EEG to evaluate for nonconvulsive status and CT head. Once testing is completed, neurology consultation will be obtained. 3. Acute kidney injury, presumed secondary to ischemic ATN Continue current supportive measures with hemodialysis per nephrology recommendations. 4. History of obstructive sleep apnea Continue AVAPS therapy as tolerated by the patient for now. 5. History of bipolar disorder/diabetes mellitus/hypertension/hyperlipidemia/obesity Complicates care, management, recovery and prognosis. Patient to remain n.p.o. for now, given tenuous respiratory status. Goals of care/CODE STATUS discussion will be undertaken once full neurological work-up is completed. TIME: 45 minutes of critical care time, independent of procedures, was spent addressing the patient's septic shock secondary to sacral osteomyelitis, encephalopathy, acute kidney injury, history of obstructive sleep apnea, bipolar disorder, review of all data and collaboration with the care team. ([id number]) Code Visit [id number]: [id number] Critical care first hour
[2019-08-18] MEDS: Levothyroxine 75 MCG Tablet GT (07:48)
[2019-08-18] MEDS: metroNIDAZOLE 500 MG/100 ML BAG 100 MG IV ×2 (07:52→14:12)
[2019-08-18] MEDS: Alteplase 2 MG/2 ML Vial IV ×2 (08:33→16:42)
[2019-08-18 09:03] LABS: Hematocrit 28.8 % (37-47); Hemoglobin 8.9 g/dL (12.0-15.0); Mean Corp Hgb Conc 30.9 g/dL (32-36); Mean Corpuscular Volume 103.6 fL (81-99); Mean Platelet Vol. 9.1 fl (6.2-12.0); POSITIVE COUNT YES; POSITIVE DIFFERENTIAL YES; POSITIVE MORPHOLOGY YES; Platelet Count 332 K/mm3 (150-450); RBC Distribution Width CV 17.7 % (11.6-14.6); RBC Distribution Width SD 64.8 fl (35.1-43.9); Red Blood Count 2.78 M/mm3 (4.2-5.4); White Blood Count 36.9 K/mm3 (4.4-11.0)
[2019-08-18 09:09] LABS: Differential Indicated MANUAL DIFF
[2019-08-18 09:22] LABS: ALB/GLOB Ratio 0.3 RATIO (0.9-2.4); AST(SGOT) 63 U/L (15-37); Alanine Aminotransfer ALT/SGPT 19 U/L (13-56); Albumin, Serum 1.2 g/dL (3.2-5.0); Alkaline Phosphatase 326 U/L (45-117); Anion Gap 8 (5-15); BUN 42 mg/dL (7-18); BUN/Creat Ratio 8.7 RATIO (10-20); Calcium,Total 8.4 mg/dL (8.5-10.1); Chloride 115 mmol/L (98-107); Creatinine, Serum 4.82 mg/dL (0.55-1.02); EST Glomerular Filtration Rate 10 mL/min (>60); Est Glom Filt Rate - Afr Amer 12 mL/min (>60); Estimated Creatinine Clearance 9.45 ml/min; Glucose 157 mg/dL (74-106); Potassium 3.9 mmol/L (3.5-5.1); Protein, Total 5.2 g/dL (6.4-8.2); Sodium Level 141 mmol/L (136-145); T4 Free Direct 0.69 ng/dL (0.76-1.46)
[2019-08-18 09:41] LABS: Allen Test POS; Base Excess -10 mmol/L (-2 to +2); Bicarbonate 16.6 mmol/L (22-26); Blood Gas Specimen Type ART; EPAP 8; FI02 40; PO2 82 mmHG (75-100); RR 14; SITE R Radial; SO2 95 % (95-99); Time Given 934; Total Carbon Dioxide 18 mmol/L; pCO2 34.9 mmHg (35-45); pH 7.29 (7.35-7.45)
[2019-08-18] MEDS: Cyanocobalamin 500 MCG Tablet 1000 MCG GT (09:51)
[2019-08-18] MEDS: Allopurinol 300 MG Tablet GT (09:52)
[2019-08-18 09:53] LABS: Lymphocyte 10 % (19-41); Metamyelocyte 6 % (0-1); Monocyte 6 % (0-10); Myelocyte 4 (0-0); Neutrophil-Segmented 73 % (47-70); Promyelocyte 1 (0-0); Total Cells Counted 100 (MANUAL DIFF)
[2019-08-18 09:54] LABS: Platelet Estimate ADEQUATE (ADEQ); Red Cell Morphology NORM C+C NORMAL (NORM C&C)
[2019-08-18 09:55] LABS: Absolute Neutrophil Count 26.9 X10^3/uL (2.0-7.7)
--- NOTE | 2019-08-18 09:58 | CT_ITS ---
STUDY: CT BRAIN WITHOUT CONTRAST REASON FOR EXAM: Female, 63 years old. ENCEPHALOPATHY, Sepsis, change IN MENTAL STATUS, ACUTE RESP FAILURE, MRSA, C-DIFF, VRE RADIATION DOSAGE (If Supplied By Facility): CTDIvol = ( 44.99 ) mGy, DLP = ( 796.11 ) mGycm TECHNIQUE: Transaxial CT imaging of the brain was performed without administration of intravenous contrast material. Individualized dose optimization techniques were used for this CT. COMPARISON: No relevant priors. FINDINGS: Normal soft tissue structures. Normal calvarium. Normal size ventricles and extra-axial spaces for the patient''s age. Normal white matter tracts of the cerebral hemispheres. Normal basal ganglia and thalami. Normal brainstem. Normal cerebellum. There is no intracranial hemorrhage. There are no findings of an acute ischemic infarction. Normal visualized paranasal sinuses. CT/Brain/Head without Contrast IMPRESSION: Normal unenhanced CT scan of the brain. Electronically Signed: Alan Dennis, at 15:45 EST , Service support ,
[2019-08-18] MEDS: Menthol/Lanolin/Calamine/Znox 113 GM Tube 1 APPLIC TOPICAL ×4 (10:00→22:10)
--- NOTE | 2019-08-18 10:10 | CASEMGMT ---
SW participated in ICU rounds, family present. Plan has been for pt to go to TCU at discharge. However, pt is now on dialysis and if this continues pt would not be able to return to TCU. SW will continue to follow, remains available for any social service needs. LOPEZ Lang
[2019-08-18 11:04] LABS: Hepatitis B Surface Antibody Reactive; Hepatitis B Surface Antigen Non-Reactive (Nonreactive)
[2019-08-18 12:15] LABS: Bedside Glucose 146 mg/dL (70-110)
[2019-08-18 12:20] LABS: Bedside Glucose 129 mg/dL (70-110)
[2019-08-18 13:55] LABS: Pathologist Review Reviewed
--- NOTE | 2019-08-18 13:56 | DIALYSIS ---
HD x3 hours completed at 1330, patient's 2nd dialysis treatment, tolerated fair, UF 1200mL, Levophed drip running during treatment, CritLine maintained profile B, tachycardic majority of tx, accessed via right neck temporary dialysis catheter, worked well
[2019-08-18 14:01] LABS: Pathologist Review Reviewed
[2019-08-18] MEDS: Heparin Injection (Vial) 5,000 UNIT/ML VIAL 5000 UNIT SC (14:29)
[2019-08-18] MEDS: TITRATION PARAMETER CHANGE 1 EACH IV (14:32)
--- NOTE | 2019-08-18 15:56 | PCM.PROGNOTE ---
Patient Problems: Active and Suspected Problems ILIANA (acute kidney injury) (Acute) Subjective: The patient is nonverbal cannot obtain review of systems - Physical Exam Vitals/I&O's: Vital Signs Temp Pulse Resp BP Pulse Ox 96.8 F L 125 H 15 117/88 H 97 08/18/19 13:40 08/18/19 13:51 08/18/19 13:51 08/18/19 13:40 08/18/19 13:51 Oxygen Flow Rate (L/min) 40 Oxygen Delivery Method Bi-pap Weight: 100.7 kg Body Mass Index (BMI) 36.9 Finger Stick Blood Glucose 134 Intake and Output for Last 24 Hours 08/16/19 08/17/19 08/18/19 23:59 23:59 23:59 Intake Total 1495.84 / 1495.84 3855.52 / 3855.52 632.04 / 632.04 Output Total 175 / 225 250 / 300 1300 / 1300 Balance 1320.84 / 1270.84 3605.52 / 3555.52 -667.96 / -667.96 HEENT: Atraumatic, PERRLA Neck: Trachea Midline, - - IJ dialysis catheter r Lungs: Clear to auscultation Cardiovascular: Regular rate, Regular Rhythm, Normal S1, Normal S2 Abdomen: Hypoactive Bowel Sounds, Obese Extremities: No clubbing Skin: No rashes Neurological: - - not Following commands and not answering questions Microbiology Past 72 Hours 08/17/19 00:15 Sputum, Tracheal Aspirate Gram Stain - Final 08/17/19 00:15 Sputum, Tracheal Aspirate Respiratory Culture - Preliminary Presumptive C albicans 08/11/19 13:21 Bone - Buttock Gram Stain - Final 08/11/19 13:21 Bone - Buttock Wound Culture - Final Meth. resistant Staph. aureus Corynebacterium striatum 08/11/19 13:21 Bone - Buttock Anaerobic Culture - Final Bacteroides vulgatus 08/11/19 06:40 Blood Culture (Wb) - Left Wrist Blood Culture - Final No growth in 5 days. 08/11/19 06:55 Blood Culture (Wb) - Left Wrist Blood Culture - Final No growth in 5 days. Laboratory Results 08/16/19 05:44: Diff Path Review Reviewed 08/17/19 05:18: Diff Path Review Reviewed 02/09/20 17:10: POC Glucose 140 H 08/17/19 17:20: Hep B Core Total Ab Pending, Hep B Core IgM Ab Pending 08/17/19 17:20: Hep Bs Antigen Non-Reactive, Hep Bs Antibody Reactive 08/17/19 18:20: Sodium 141, Potassium 3.7, Chloride 114 H, Carbon Dioxide 18.0 L, Anion Gap 9, BUN 32 H, Creatinine 4.23 H, Estim Creat Clear Calc 10.77, Est GFR (MDRD) Af Amer 14 L, Est GFR (MDRD) Non-Af 11 L, BUN/Creatinine Ratio 7.6 L, Glucose 165 H, Calcium 8.7 08/18/19 00:58: POC Glucose 146 H 08/18/19 08:50: WBC 36.9 H*, RBC 2.78 L, Hgb 8.9 L, Hct 28.8 L, MCV 103.6 H, MCH 32.0, MCHC 30.9 L, RDW Std Deviation 64.8 H, RDW Coeff of Harper 17.7 H, Plt Count 332, MPV 9.1, Neut % (Auto) Not Reportable, Absolute Neuts (auto) 26.9 H, Absolute Lymphs (auto) 3.70, Total Counted 100, Neutrophils % (Manual) 73 H, Lymphocytes % (Manual) 10 L, Monocytes % (Manual) 6, Metamyelocytes % 6 H, Myelocytes % 4 H, Promyelocytes % 1 H, Diff Path Review November, Platelet Estimate ADEQUATE, RBC Morphology NORM C+C 08/18/19 08:50: Sodium 141, Potassium 3.9, Chloride 115 H, Carbon Dioxide 18.0 L, Anion Gap 8, BUN 42 H, Creatinine 4.82 H, Estim Creat Clear Calc 9.45, Est GFR (MDRD) Af Amer 12 L, Est GFR (MDRD) Non-Af 10 L, BUN/Creatinine Ratio 8.7 L, Glucose 157 H, Calcium 8.4 L, Total Bilirubin 0.30, AST 63 H, ALT 19, Alkaline Phosphatase 326 H, Total Protein 5.2 L, Albumin 1.2 L, Globulin 4.0, Albumin/Globulin Ratio 0.3 L, Free T4 0.69 L 08/18/19 08:50: Ammonia 13.0 08/18/19 09:35: Specimen Type ART, Sample Site R Radial, pH 7.29 L, Bicarbonate Actual 16.6 L, POC Total CO2 18, Base Excess -10 L, O2 Saturation 95, O2 % 40, ABG pCO2 34.9 L, ABG pO2 82, Ramy Test POS, Respiration Rate 14, O2 Delivery Device Bi / C PAP, EPAP 8, Blood Gas Notified Whom ICU MD, Blood Gas Notified Time 934 08/18/19 12:17: POC Glucose 129 H Current Medications Acetaminophen (Tylenol Liquid) 650 mg GT Q6H PRN PRN PRN Reason: PAIN 1-3/ TEMP >100.7 Albuterol Sulfate (Ventolin Aerosols) 2.5 mg INHALATION Q2H PRN PRN PRN Reason: SOB/Wheezing Albuterol/Ipratropium (Duoneb) 3 ml INHALATION Q4H.RT [facility] Last Admin: 08/18/19 13:51 Dose: 3 ml Documented by: Allopurinol (Zyloprim) 300 mg GT DAILY [facility] Last Admin: 08/18/19 09:52 Dose: 300 mg Documented by: Aspirin (Aspirin, Baby) 81 mg GT QHS [facility] Last Admin: 08/17/19 21:35 Dose: 81 mg Documented by: Atorvastatin Calcium (Lipitor) 80 mg GT QHS [facility] Last Admin: 08/17/19 21:35 Dose: 80 mg Documented by: Calamine/Phenol (Calmoseptine Ointment) 1 applic TOPICAL 4X/DAY [facility]; Protocol Last Admin: 08/18/19 14:33 Dose: 1 applicatio Documented by: Cholecalciferol (Vitamin D) 5,000 unit GT DAILY [facility] Last Admin: 08/18/19 09:51 Dose: 5,000 unit Documented by: Cyanocobalamin (Vitamin B12) 1,000 mcg GT DAILY [facility] Last Admin: 08/18/19 09:51 Dose: 1,000 mcg Documented by: Glucagon () 1 mg IM .X1 PRN PRN Reason: Hypoglycemia Heparin Sodium (Porcine) (Heparin Na) 5,000 unit SC Q8 [facility] Last Admin: 08/18/19 14:29 Dose: 5,000 unit Documented by: Dextrose (Dextrose 10%-Water) 250 mls @ 999 mls/hr IV .Q16M PRN; Protocol PRN Reason: HYPOGLYCEMIA Sodium Chloride () 250 mls @ 15 mls/hr IV .[id number] PRN PRN Reason: Saline Flush Sodium Chloride () 250 mls @ 15 mls/hr IV .[id number] PRN PRN Reason: Additional IVPB Infusion Daptomycin 600 mg/ Sodium (Chloride) 62 mls @ 100 mls/hr IV Q48H [facility] Last Infusion: 08/17/19 13:55 Dose: Infused Documented by: Metronidazole (Flagyl) 500 mg in 100 mls @ 100 mls/hr IV Q8 [facility] Last Admin: 08/18/19 14:12 Dose: 100 mls/hr Documented by: Norepinephrine Bitartrate 8 mg (/ Sodium Chloride) 250 mls @ 9.375 mls/hr CONT INF .[id number] [facility]; Protocol Last Titration: 08/18/19 10:56 Dose: 12.5 mcg/min, 23.4 mls/hr Documented by: Pantoprazole Sodium 40 mg/ (Sodium Chloride) 110 mls @ 330 mls/hr IV Q12 [facility] Fluconazole (Diflucan) 200 mg in 100 mls @ 100 mls/hr IV QHS [facility] Cefepime HCl 0.5 gm/ Sodium (Chloride) 50 mls @ 100 mls/hr IV Q24 [facility] Insulin Human Lispro (Humalog Kwikpen (Bkc)) 0 unit SC Q6 [facility]; Protocol Last Admin: 08/18/19 12:20 Dose: Not Given Documented by: Levothyroxine Sodium (Synthroid) 75 mcg GT DAILY@0600 [facility] Last Admin: 08/18/19 07:48 Dose: 75 mcg Documented by: Nutritional Formula ([place] Flavor) 1 packet GT BIDCM [facility] Last Admin: 08/18/19 09:51 Dose: 1 packet Documented by: Prochlorperazine Edisylate (Compazine Iv) 5 mg IV Q4H PRN PRN PRN Reason: Breakthrough Nausea/Vomiting Last Admin: 08/10/19 10:33 Dose: 5 mg Documented by: Sodium Chloride () 10 - 40 ml IV UD PRN PRN Reason: Open End PICC Flush Last Admin: 08/16/19 10:40 Dose: 40 ml Documented by: Sodium Chloride (0.9% Nacl (Sterile) Posiflush) 10 - 40 ml IV UD PRN PRN Reason: Port access or dressing change Vancomycin HCl () 125 mg PO Q6 [facility] Last Admin: 08/18/19 14:33 Dose: 125 mg Documented by: Medical Necessity - Tobacco Use Smoking Status: Former smoker Tobacco Use: Vapor Assessment/Plan All Active Problems ILIANA (acute kidney injury) (Acute) Fecal soiling due to fecal incontinence (Acute) ILIANA secondary to ATN with septic shock LE edema Metabolic acidosis Sepsis with osteo Dialysis tomorrow UF as tolerated we will do 4 hours of dialysis tomorrow. Levophed keep mean arterial pressure more than 65 Currently on 7 of Levophed Virtually anuric Antibiotics per infectious disease. Dose antibiotics as per pharmacy. Avoid nephrotoxins d/w OBEY
--- NOTE | 2019-08-18 16:01 | PCM.PN.HOSP ---
Patient Problems: Active and Suspected Problems ILIANA (acute kidney injury) (Acute) Subjective: Opens her eyes but otherwise is not communicative. Overnight she was started on levo fed to maintain her blood pressure. Was unable to tolerate dialysis yesterday and was only be able to be used as filtration instead of taking fluid off Vitals/I&O's: Vital Signs Temp Pulse Resp BP Pulse Ox 96.8 F L 125 H 15 117/88 H 97 08/18/19 13:40 08/18/19 13:51 08/18/19 13:51 08/18/19 13:40 08/18/19 13:51 Oxygen Flow Rate (L/min) 40 Oxygen Delivery Method Bi-pap Weight: 222 lb 0.088 oz Body Mass Index (BMI) 36.9 Finger Stick Blood Glucose 134 Intake and Output for Last 24 Hours 08/16/19 08/17/19 08/18/19 23:59 23:59 23:59 Intake Total 1495.84 / 1495.84 3855.52 / 3855.52 632.04 / 632.04 Output Total 175 / 225 250 / 300 1300 / 1300 Balance 1320.84 / 1270.84 3605.52 / 3555.52 -667.96 / -667.96 General: Alert, No apparent distress, - - Does not respond to commands HEENT: Atraumatic, Normocephalic, Sluggish Pupils Oral: Moist Mucosa Neck: Supple Lungs: Clear to auscultation, Normal air movement, No rhonchi, No wheeze, No rales, Diminished Cardiovascular: Regular Rhythm, Normal S1, Normal S2, No murmurs, Tachycardic Abdomen: Soft, Non Tender, Non-Distended, No Hepato-splenomegaly Extremities: Capillary Refill Less than 3 Seconds, Edema Skin: No rashes, No breakdown, Ulcer/ Wound - Dressing on her right buttock is intact Neurological: - - Given her lack of following commands cannot examine Psych/Mental Status: Flat Affect Microbiology Past 72 Hours 08/17/19 00:15 Sputum, Tracheal Aspirate Gram Stain - Final 08/17/19 00:15 Sputum, Tracheal Aspirate Respiratory Culture - Preliminary Presumptive C albicans 08/11/19 13:21 Bone - Buttock Gram Stain - Final 08/11/19 13:21 Bone - Buttock Wound Culture - Final Meth. resistant Staph. aureus Corynebacterium striatum 08/11/19 13:21 Bone - Buttock Anaerobic Culture - Final Bacteroides vulgatus 08/11/19 06:40 Blood Culture (Wb) - Left Wrist Blood Culture - Final No growth in 5 days. 08/11/19 06:55 Blood Culture (Wb) - Left Wrist Blood Culture - Final No growth in 5 days. Laboratory Results 08/16/19 05:44: Diff Path Review Reviewed 08/17/19 05:18: Diff Path Review Reviewed 08/17/19 17:10: POC Glucose 140 H 08/17/19 17:20: Hep B Core Total Ab Pending, Hep B Core IgM Ab Pending 08/17/19 17:20: Hep Bs Antigen Non-Reactive, Hep Bs Antibody Reactive 08/17/19 18:20: Sodium 141, Potassium 3.7, Chloride 114 H, Carbon Dioxide 18.0 L, Anion Gap 9, BUN 32 H, Creatinine 4.23 H, Estim Creat Clear Calc 10.77, Est GFR (MDRD) Af Amer 14 L, Est GFR (MDRD) Non-Af 11 L, BUN/Creatinine Ratio 7.6 L, Glucose 165 H, Calcium 8.7 08/18/19 00:58: POC Glucose 146 H 08/18/19 08:50: WBC 36.9 H*, RBC 2.78 L, Hgb 8.9 L, Hct 28.8 L, MCV 103.6 H, MCH 32.0, MCHC 30.9 L, RDW Std Deviation 64.8 H, RDW Coeff of Harper 17.7 H, Plt Count 332, MPV 9.1, Neut % (Auto) Not Reportable, Absolute Neuts (auto) 26.9 H, Absolute Lymphs (auto) 3.70, Total Counted 100, Neutrophils % (Manual) 73 H, Lymphocytes % (Manual) 10 L, Monocytes % (Manual) 6, Metamyelocytes % 6 H, Myelocytes % 4 H, Promyelocytes % 1 H, Diff Path Review May foll, Platelet Estimate ADEQUATE, RBC Morphology NORM C+C 08/18/19 08:50: Sodium 141, Potassium 3.9, Chloride 115 H, Carbon Dioxide 18.0 L, Anion Gap 8, BUN 42 H, Creatinine 4.82 H, Estim Creat Clear Calc 9.45, Est GFR (MDRD) Af Amer 12 L, Est GFR (MDRD) Non-Af 10 L, BUN/Creatinine Ratio 8.7 L, Glucose 157 H, Calcium 8.4 L, Total Bilirubin 0.30, AST 63 H, ALT 19, Alkaline Phosphatase 326 H, Total Protein 5.2 L, Albumin 1.2 L, Globulin 4.0, Albumin/Globulin Ratio 0.3 L, Free T4 0.69 L 08/18/19 08:50: Ammonia 13.0 08/18/19 09:35: Specimen Type ART, Sample Site R Radial, pH 7.29 L, Bicarbonate Actual 16.6 L, POC Total CO2 18, Base Excess -10 L, O2 Saturation 95, O2 % 40, ABG pCO2 34.9 L, ABG pO2 82, Ramy Test POS, Respiration Rate 14, O2 Delivery Device Bi / C PAP, EPAP 8, Blood Gas Notified Whom ICU MD, Blood Gas Notified Time 934 08/18/19 12:17: POC Glucose 129 H Current Medications Acetaminophen (Tylenol Liquid) 650 mg GT Q6H PRN PRN PRN Reason: PAIN 1-3/ TEMP >100.7 Albuterol Sulfate (Ventolin Aerosols) 2.5 mg INHALATION Q2H PRN PRN PRN Reason: SOB/Wheezing Albuterol/Ipratropium (Duoneb) 3 ml INHALATION Q4H.RT [facility] Last Admin: 08/18/19 13:51 Dose: 3 ml Documented by: Allopurinol (Zyloprim) 300 mg GT DAILY [facility] Last Admin: 08/18/19 09:52 Dose: 300 mg Documented by: Aspirin (Aspirin, Baby) 81 mg GT QHS [facility] Last Admin: 08/17/19 21:35 Dose: 81 mg Documented by: Atorvastatin Calcium (Lipitor) 80 mg GT QHS [facility] Last Admin: 08/17/19 21:35 Dose: 80 mg Documented by: Calamine/Phenol (Calmoseptine Ointment) 1 applic TOPICAL 4X/DAY [facility]; Protocol Last Admin: 08/18/19 14:33 Dose: 1 applicatio Documented by: Cholecalciferol (Vitamin D) 5,000 unit GT DAILY [facility] Last Admin: 08/18/19 09:51 Dose: 5,000 unit Documented by: Cyanocobalamin (Vitamin B12) 1,000 mcg GT DAILY [facility] Last Admin: 08/18/19 09:51 Dose: 1,000 mcg Documented by: Glucagon () 1 mg IM .X1 PRN PRN Reason: Hypoglycemia Heparin Sodium (Porcine) (Heparin Na) 5,000 unit SC Q8 [facility] Last Admin: 08/18/19 14:29 Dose: 5,000 unit Documented by: Dextrose (Dextrose 10%-Water) 250 mls @ 999 mls/hr IV .Q16M PRN; Protocol PRN Reason: HYPOGLYCEMIA Sodium Chloride () 250 mls @ 15 mls/hr IV .[id number] PRN PRN Reason: Saline Flush Sodium Chloride () 250 mls @ 15 mls/hr IV .[id number] PRN PRN Reason: Additional IVPB Infusion Daptomycin 600 mg/ Sodium (Chloride) 62 mls @ 100 mls/hr IV Q48H [facility] Last Infusion: 08/17/19 13:55 Dose: Infused Documented by: Metronidazole (Flagyl) 500 mg in 100 mls @ 100 mls/hr IV Q8 [facility] Last Admin: 08/18/19 14:12 Dose: 100 mls/hr Documented by: Norepinephrine Bitartrate 8 mg (/ Sodium Chloride) 250 mls @ 9.375 mls/hr CONT INF .[id number] [facility]; Protocol Last Titration: 08/18/19 10:56 Dose: 12.5 mcg/min, 23.4 mls/hr Documented by: Pantoprazole Sodium 40 mg/ (Sodium Chloride) 110 mls @ 330 mls/hr IV Q12 [facility] Fluconazole (Diflucan) 200 mg in 100 mls @ 100 mls/hr IV QHS [facility] Cefepime HCl 0.5 gm/ Sodium (Chloride) 50 mls @ 100 mls/hr IV Q24 [facility] Insulin Human Lispro (Humalog Kwikpen (Bkc)) 0 unit SC Q6 [facility]; Protocol Last Admin: 08/18/19 12:20 Dose: Not Given Documented by: Levothyroxine Sodium (Synthroid) 75 mcg GT DAILY@0600 [facility] Last Admin: 08/18/19 07:48 Dose: 75 mcg Documented by: Nutritional Formula ([place] Flavor) 1 packet GT BIDCM [facility] Last Admin: 08/18/19 09:51 Dose: 1 packet Documented by: Prochlorperazine Edisylate (Compazine Iv) 5 mg IV Q4H PRN PRN PRN Reason: Breakthrough Nausea/Vomiting Last Admin: 08/10/19 10:33 Dose: 5 mg Documented by: Sodium Chloride () 10 - 40 ml IV UD PRN PRN Reason: Open End PICC Flush Last Admin: 08/16/19 10:40 Dose: 40 ml Documented by: Sodium Chloride (0.9% Nacl (Sterile) Posiflush) 10 - 40 ml IV UD PRN PRN Reason: Port access or dressing change Vancomycin HCl () 125 mg PO Q6 [facility] Last Admin: 08/18/19 14:33 Dose: 125 mg Documented by: STROKE Vital Signs/Narrative: Vital Signs Temp Pulse Resp BP Pulse Ox 08/18/19 13:51 125 H 15 97 08/18/19 13:40 96.8 F L 129 H 28 H 117/88 H 94 Medical Necessity - Tobacco Use Smoking Status: Former smoker Tobacco Use: Vapor Assessment/Plan All Active Problems ILIANA (acute kidney injury) (Acute) Fecal soiling due to fecal incontinence (Acute) 1. Severe sepsis secondary to a stage IV pressors for as well as osteo/acute metabolic encephalopathy secondary to sepsis and infection -She has been on multiple antibiotics, currently she is on Flagyl, cefepime, and daptomycin based on MRSA culture data as well as Bacteroides and corynebacterium -She remains with a very high leukocytosis therefore an NG tube was placed and she was started on p.o. vancomycin to make sure that there is adequate treatment for the potential C. difficile she is positive for the antigen but negative for the toxin, Diflucan was added today -Continue with levo fed to maintain blood pressures while she undergoes dialysis the necessity of levo fed was for dialysis not because of her baseline illness 2. Acute renal failure causing some component of metabolic encephalopathy/hypernatremia and hyperchloremia -Dialysis catheter was placed today and will start with dialysis -Appreciate nephrology's assistance -Now that she has an NG tube can resume oral medications including her allopurinol 3. Acute on chronic hypercapnic respiratory failure -Appreciate pulmonology's input, continue with BiPAP while sleeping 4. DM 2 -We will hold her oral medications and continue with sliding scale insulin -Accu-Cheks AC at bedtime 5. Anxiety/depression/bipolar -She can restart her medications when she becomes more alert at this time wanting to rule out that her medications have not caused significant sedation given her renal failure 6. HTN/HLD -Her blood pressures have been soft and since she will be started on dialysis will hold her blood pressure medications -Can continue her statin 7. Hypothyroidism -Her Synthroid has been held since she was n.p.o., it has been restarted since NG tube was placed -TSH was 10, continue with Synthroid 8. GERD -Continue with PPI per NG tube DVT: Lovenox Code Visit Inpatient E&M: 44095 Subs Hosp L2
--- NOTE | 2019-08-18 16:19 | PN.ID_ITS ---
Patient Problems: Active and Suspected Problems ILIANA (acute kidney injury) (Acute) Subjective: In icu, nonresponsive. Head CT this afternoon. Getting EEG. No fever. - Physical Exam Vitals/I&O's: Vital Signs Temp Pulse Resp BP Pulse Ox 96.8 F L 125 H 15 117/88 H 97 08/18/19 13:40 08/18/19 13:51 08/18/19 13:51 08/18/19 13:40 08/18/19 13:51 Oxygen Flow Rate (L/min) 40 Oxygen Delivery Method Bi-pap Weight: 100.7 kg Body Mass Index (BMI) 36.9 Finger Stick Blood Glucose 134 Intake and Output for Last 24 Hours 08/16/19 08/17/19 08/18/19 23:59 23:59 23:59 Intake Total 1495.84 / 1495.84 3855.52 / 3855.52 632.04 / 632.04 Output Total 175 / 225 250 / 300 1300 / 1300 Balance 1320.84 / 1270.84 3605.52 / 3555.52 -667.96 / -667.96 General: No apparent distress, Non-Cooperative Lungs: Clear to auscultation, Normal air movement Cardiovascular: Regular rate, Regular Rhythm Abdomen: Soft, Non Tender, Non-Distended Skin: Ulcer/ Wound - wound vac in place Microbiology Past 72 Hours 08/17/19 00:15 Sputum, Tracheal Aspirate Gram Stain - Final 08/17/19 00:15 Sputum, Tracheal Aspirate Respiratory Culture - Preliminary Presumptive C albicans 08/11/19 13:21 Bone - Buttock Gram Stain - Final 08/11/19 13:21 Bone - Buttock Wound Culture - Final Meth. resistant Staph. aureus Corynebacterium striatum 08/11/19 13:21 Bone - Buttock Anaerobic Culture - Final Bacteroides vulgatus 08/11/19 06:40 Blood Culture (Wb) - Left Wrist Blood Culture - Final No growth in 5 days. 08/11/19 06:55 Blood Culture (Wb) - Left Wrist Blood Culture - Final No growth in 5 days. Laboratory Results 08/16/19 05:44: Diff Path Review Reviewed 08/17/19 05:18: Diff Path Review Reviewed 08/17/19 17:10: POC Glucose 140 H 08/17/19 17:20: Hep B Core Total Ab Pending, Hep B Core IgM Ab Pending 08/17/19 17:20: Hep Bs Antigen Non-Reactive, Hep Bs Antibody Reactive 08/17/19 18:20: Sodium 141, Potassium 3.7, Chloride 114 H, Carbon Dioxide 18.0 L , Anion Gap 9, BUN 32 H, Creatinine 4.23 H, Estim Creat Clear Calc 10.77, Est GFR (MDRD) Af Amer 14 L, Est GFR (MDRD) Non-Af 11 L, BUN/Creatinine Ratio 7.6 L, Glucose 165 H, Calcium 8.7 08/18/19 00:58: POC Glucose 146 H 08/18/19 08:50: WBC 36.9 H*, RBC 2.78 L, Hgb 8.9 L, Hct 28.8 L, MCV 103.6 H, MCH 32.0, MCHC 30.9 L, RDW Std Deviation 64.8 H, RDW Coeff of Harper 17.7 H, Plt Count 332, MPV 9.1, Neut % (Auto) Not Reportable, Absolute Neuts (auto) 26.9 H, Absolute Lymphs (auto) 3.70, Total Counted 100, Neutrophils % (Manual) 73 H, Lymphocytes % (Manual) 10 L, Monocytes % (Manual) 6, Metamyelocytes % 6 H, Myelocytes % 4 H, Promyelocytes % 1 H, Diff Path Review November, Platelet Estimate ADEQUATE, RBC Morphology NORM C+C 08/18/19 08:50: Sodium 141, Potassium 3.9, Chloride 115 H, Carbon Dioxide 18.0 L , Anion Gap 8, BUN 42 H, Creatinine 4.82 H, Estim Creat Clear Calc 9.45, Est GFR (MDRD) Af Amer 12 L, Est GFR (MDRD) Non-Af 10 L, BUN/Creatinine Ratio 8.7 L, Glucose 157 H, Calcium 8.4 L, Total Bilirubin 0.30, AST 63 H, ALT 19, Alkaline Phosphatase 326 H, Total Protein 5.2 L, Albumin 1.2 L, Globulin 4.0, Albumin/Globulin Ratio 0.3 L, Free T4 0.69 L 08/18/19 08:50: Ammonia 13.0 08/18/19 09:35: Specimen Type ART, Sample Site R Radial, pH 7.29 L, Bicarbonate Actual 16.6 L, POC Total CO2 18, Base Excess -10 L, O2 Saturation 95, O2 % 40, ABG pCO2 34.9 L, ABG pO2 82, Ramy Test POS, Respiration Rate 14, O2 Delivery Device Bi / C PAP, EPAP 8, Blood Gas Notified Whom ICU MD, Blood Gas Notified Time 934 08/18/19 12:17: POC Glucose 129 H Current Medications Acetaminophen (Tylenol Liquid) 650 mg GT Q6H PRN PRN PRN Reason: PAIN 1-3/ TEMP >100.7 Albuterol Sulfate (Ventolin Aerosols) 2.5 mg INHALATION Q2H PRN PRN PRN Reason: SOB/Wheezing Albuterol/Ipratropium (Duoneb) 3 ml INHALATION Q4H.RT [facility] Last Admin: 08/18/19 13:51 Dose: 3 ml Documented by: Allopurinol (Zyloprim) 300 mg GT DAILY [facility] Last Admin: 08/18/19 09:52 Dose: 300 mg Documented by: Aspirin (Aspirin, Baby) 81 mg GT QHS [facility] Last Admin: 08/17/19 21:35 Dose: 81 mg Documented by: Atorvastatin Calcium (Lipitor) 80 mg GT QHS [facility] Last Admin: 08/17/19 21:35 Dose: 80 mg Documented by: Calamine/Phenol (Calmoseptine Ointment) 1 applic TOPICAL 4X/DAY [facility]; Protocol Last Admin: 08/18/19 14:33 Dose: 1 applicatio Documented by: Cholecalciferol (Vitamin D) 5,000 unit GT DAILY [facility] Last Admin: 08/18/19 09:51 Dose: 5,000 unit Documented by: Cyanocobalamin (Vitamin B12) 1,000 mcg GT DAILY [facility] Last Admin: 08/18/19 09:51 Dose: 1,000 mcg Documented by: Glucagon () 1 mg IM .X1 PRN PRN Reason: Hypoglycemia Heparin Sodium (Porcine) (Heparin Na) 5,000 unit SC Q8 [facility] Last Admin: 08/18/19 14:29 Dose: 5,000 unit Documented by: Dextrose (Dextrose 10%-Water) 250 mls @ 999 mls/hr IV .Q16M PRN; Protocol PRN Reason: HYPOGLYCEMIA Sodium Chloride () 250 mls @ 15 mls/hr IV .[id number] PRN PRN Reason: Saline Flush Sodium Chloride () 250 mls @ 15 mls/hr IV .[id number] PRN PRN Reason: Additional IVPB Infusion Daptomycin 600 mg/ Sodium (Chloride) 62 mls @ 100 mls/hr IV Q48H [facility] Last Infusion: 08/17/19 13:55 Dose: Infused Documented by: Metronidazole (Flagyl) 500 mg in 100 mls @ 100 mls/hr IV Q8 [facility] Last Admin: 08/18/19 14:12 Dose: 100 mls/hr Documented by: Norepinephrine Bitartrate 8 mg (/ Sodium Chloride) 250 mls @ 9.375 mls/hr CONT INF .[id number] [facility]; Protocol Last Titration: 08/18/19 10:56 Dose: 12.5 mcg/min, 23.4 mls/hr Documented by: Pantoprazole Sodium 40 mg/ (Sodium Chloride) 110 mls @ 330 mls/hr IV Q12 [facility] Fluconazole (Diflucan) 200 mg in 100 mls @ 100 mls/hr IV QHS [facility] Cefepime HCl 0.5 gm/ Sodium (Chloride) 50 mls @ 100 mls/hr IV Q24 [facility] Insulin Human Lispro (Humalog Kwikpen (Bkc)) 0 unit SC Q6 [facility]; Protocol Last Admin: 08/18/19 12:20 Dose: Not Given Documented by: Levothyroxine Sodium (Synthroid) 75 mcg GT DAILY@0600 [facility] Last Admin: 08/18/19 07:48 Dose: 75 mcg Documented by: Nutritional Formula ([place] - [place] Flavor) 1 packet GT BIDCM [facility] Last Admin: 08/18/19 09:51 Dose: 1 packet Documented by: Prochlorperazine Edisylate (Compazine Iv) 5 mg IV Q4H PRN PRN PRN Reason: Breakthrough Nausea/Vomiting Last Admin: 08/10/19 10:33 Dose: 5 mg Documented by: Sodium Chloride () 10 - 40 ml IV UD PRN PRN Reason: Open End PICC Flush Last Admin: 08/16/19 10:40 Dose: 40 ml Documented by: Sodium Chloride (0.9% Nacl (Sterile) Posiflush) 10 - 40 ml IV UD PRN PRN Reason: Port access or dressing change Vancomycin HCl () 125 mg PO Q6 [facility] Last Admin: 08/18/19 14:33 Dose: 125 mg Documented by: Medical Necessity - Tobacco Use Smoking Status: Former smoker Tobacco Use: Vapor Route of nutrition/ use of supplements: [] Nutritional Intake: [] IV Site: [] Ahmadi Catheter: [] - Assessment/Plan Antibiotics: [] Assessment/Plan: [] 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 Prior cxs with corynebacteria, ecoli, serratia, anaerobes. Recent ucx with VRE and heidi. Taken to OR 2/[address] Kaiser. Diverting ostomy planned but currently too unstable. Not having much diarrhea, and cdiff testing did not show active toxin. Overall worsening respiratory, mental, and renal status. On dapto, cefepime, flagyl, po vanc. Will add fluconazole due to yeast growing from multiple sites. Now on HD. Will follow, d/w primary team.
[2019-08-18] MEDS: Heparin 10,000 UNITS/10 ML Vial 2600 UNITS IV (16:42)
--- NOTE | 2019-08-18 17:26 | CPS ---
[facility] [place] Telemed call this CONTRACTS REPRESENTATIVE. [facility] Telemed doctor gave me his direct number for physician to call him. Dr. Dominguez called by this CONTRACTS REPRESENTATIVE and was given [facility] telemed doctors direct number for EEG results.
[2019-08-18] MEDS: levETIRAcetam IV 1,000 MG/100 ML BAG 400 MG IV (18:16)
[2019-08-18 19:56] LABS: Bedside Glucose 109 mg/dL (70-110)
--- NOTE | 2019-08-18 22:09 | PCM.PN.BLA ---
Progress Note Had a 2-1/2-hour conversation with the family about advanced care planning including hospice. Explained to them that she has renal failure that is not being successfully managed with dialysis and she cannot tolerate dialysis and she often needs to be placed on Levophed to control her blood pressure. 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 She has difficulty managing Ativan given sedation and her difficulty with maintaining oxygen saturations on BiPAP. I explained that if we transfer to an outside hospital for 24-hour EEG monitoring and treatment for the nonconvulsive status epilepticus that she will likely need to be intubated for transport and therefore may not be extubated. Also she will be unlikely to recover any significant functionality and at the very least more than likely will return to her baseline function. We had a discussion with multiple family members over the phone and they all seem to agree that at this point we should proceed with hospice. The father would like to continue some form of treatment so that way family has time to make it in to see her. We can discontinue her antibiotics but continue pressor support as needed. We will also continue oral medications per the PEG tube as well as BiPAP therapy. She will have Ativan available as needed for her seizures and comfort. The plan will be to consult hospice in the morning, however they would prefer to stay here at the hospital for hospice care instead of going to an inpatient hospice unit, I did agree to this. STROKE Vital Signs/Narrative: Vital Signs Pulse Resp BP Pulse Ox 08/18/19 19:20 117 H 25 H 95 08/18/19 18:45 118 H 23 H 123/72 H 96 08/18/19 18:30 116 H 21 H 115/62 96 08/18/19 18:15 118 H 19 H 115/60 96 Code Visit Procedures: 44007 Advncd Care Plan addl 30 Min
[2019-08-18] MEDS: LORazepam 2 MG/ML Syringe IV (23:13)
[2019-08-18 23:26] LABS: Bedside Glucose 120 mg/dL (70-110)
[2019-08-19] VITALS (42 sets, daily range): BP systolic 57–123; BP diastolic 20–78; PULSE 112–130; RESP 14–44; TEMP 36.2–36.6; O2SAT 92–97
[2019-08-19 00:51] LABS: Bedside Glucose 128 mg/dL (70-110)
[2019-08-19] MEDS: LORazepam 2 MG/ML Syringe IV ×5 (01:42→22:40)
[2019-08-19] MEDS: Ipratropium/Albuterol Sulfate 3 ML AMPUL.NEB INHALATION ×2 (03:00→06:33)
--- NOTE | 2019-08-19 03:00 | NURSING ---
Pt attempting to cough, weakly, oxygen saturation drops to 86%; mucus cannot be reached w/oral sxn; 14fr soft cath used for deeper oral sxn for mod amt pink tinged frothy substance w/scattered red flecks. Oral care provided and AVAPs mask replaced. Oxygen sat back up to 93%.
--- NOTE | 2019-08-19 03:26 | NURSING ---
RT in room, giving pt aerosol tx; pt oxygen sat down to 89%; pt noted to be trying to cough again. RT provides sxn via [place];pt given PRN Levsin as per order.
[2019-08-19] MEDS: Hyoscyamine Sulfate 0.125 MG Tablet SUBLINGUAL ×2 (04:30→13:00)
[2019-08-19 04:43] LABS: Hemoglobin 8.4 g/dL (12.0-15.0); Mean Corp Hgb Conc 31.1 g/dL (32-36); Mean Corpuscular Hgb 31.2 pg (27.0-32.0); Mean Corpuscular Volume 100.4 fL (81-99); POSITIVE COUNT YES; POSITIVE DIFFERENTIAL YES; POSITIVE MORPHOLOGY YES; Platelet Count 218 K/mm3 (150-450); RBC Distribution Width CV 17.7 % (11.6-14.6); RBC Distribution Width SD 60.4 fl (35.1-43.9); Red Blood Count 2.69 M/mm3 (4.2-5.4)
[2019-08-19 04:47] LABS: Differential Indicated MANUAL DIFF; White Blood Count 31.5 K/mm3 (4.4-11.0)
[2019-08-19 04:57] LABS: Anion Gap 7 (5-15); BUN 40 mg/dL (7-18); BUN/Creat Ratio 11.5 RATIO (10-20); Calcium,Total 8.3 mg/dL (8.5-10.1); Chloride 107 mmol/L (98-107); Creatinine, Serum 3.47 mg/dL (0.55-1.02); EST Glomerular Filtration Rate 14 mL/min (>60); Est Glom Filt Rate - Afr Amer 17 mL/min (>60); Estimated Creatinine Clearance 13.12 ml/min; Glucose 129 mg/dL (74-106); Magnesium 1.9 mg/dL (1.6-2.6); Potassium 3.2 mmol/L (3.5-5.1); Sodium Level 138 mmol/L (136-145)
[2019-08-19 05:06] LABS: Hepatitis B Core Ab Total Negative (Negative)
[2019-08-19 05:07] LABS: Neutrophil-Band 3 % (0-5); Neutrophil-Segmented 69 % (47-70); Total Cells Counted 100 (MANUAL DIFF)
[2019-08-19 05:08] LABS: Anisocytosis RARE; Hypochromasia RARE; Lymphocyte 13 % (19-41); Metamyelocyte 4 % (0-1); Monocyte 11 % (0-10); Platelet Estimate ADEQUATE (ADEQ)
[2019-08-19 05:09] LABS: Red Cell Morphology N CYTIC NORMAL (NORM C&C)
[2019-08-19 05:10] LABS: Absolute Neutrophil Count 22.7 X10^3/uL (2.0-7.7); Lymphocyte # 4.09 X10^3/ul (4.0); Neutrophil # 22.65 X10^3/uL (2.7-7.7)
[2019-08-19 05:11] LABS: Absolute Lymphocyte Count 4.09 X10^3/uL (0.83-4.51); Monocyte# 3.46 X10^3/uL
[2019-08-19] MEDS: 0.9% Saline Lock 10 ML Syringe IV ×3 (06:28→15:18)
[2019-08-19] MEDS: Levothyroxine 75 MCG Tablet GT (06:28)
--- NOTE | 2019-08-19 06:46 | PN_ITS ---
Subjective: The patient was seen and examined at the bedside this morning. Events from the last 24 hours have been reviewed. The patient is currently afebrile, hemodynamically stable and maintaining appropriate oxygen saturations on 4 L/min via nasal cannula. Although CT head was unremarkable yesterday, EEG did reveal continuous generalized periodic epileptiform discharges concerning for nonconvulsive status epilepticus. I personally discussed these findings with the neurologist on-call along with therapeutic interventions. Although recommendations were made to place the patient on fosphenytoin, the medication is not on formulary here. Therefore, the patient was started on Keppra, which was dose adjusted for renal function. There are tentative plans for a transition of goals of care to comfort care measures at some point today, as the patient's family did not wish to proceed with transferring the patient to a tertiary care facility that would allow for continuous EEG monitoring. The patient was treated with 2 mg of IV Ativan overnight for nursing reported seizure-like activity. Objective: The patient's most recent lab work, culture data and imaging studies have all been personally reviewed. General: Lethargic HEENT: Atraumatic, Normocephalic Oral: No Gingival or Mucosal Lesions/ Ulcerations Neck: Supple, No Nodes, Trachea Midline Lungs: Diminished, Rales, Tachypneic Cardiovascular: Normal S1, Normal S2, Tachycardic Abdomen: Bowel Sounds Present, Soft, Non Tender Extremities: No cyanosis, Edema Skin: Ulcer/ Wound Musculoskeletal: No Muscle Wasting Lymphatic: No Cervical, Supraclavicular, or Inguinal Adenopathy Neurological: - - Largely unchanged from previous Psych/Mental Status: Flat Affect Vital Signs Temp Pulse Resp BP Pulse Ox 97.8 F 115 H 23 H 116/58 L 95 08/19/19 04:00 08/19/19 06:33 08/19/19 06:33 08/19/19 06:00 08/19/19 06:33 Oxygen Flow Rate (L/min) 4 Oxygen Delivery Method Nasal Cannula Weight: 223 lb 1.725 oz Body Mass Index (BMI) 36.9 Finger Stick Blood Glucose 134 Intake and Output for Last 24 Hours 08/17/19 08/18/19 08/19/19 23:59 23:59 23:59 Intake Total 3855.52 / 3855.52 1675.58 / 1676.76 75.34 / 75.34 Output Total 250 / 300 1750 / 1800 75 / 75 Balance 3605.52 / 3555.52 -74.42 / -123.24 0.34 / 0.34 Labs (Last 48 Hours) 08/16/19 08/17/19 08/17/19 05:44 05:18 05:18 WBC [employer] Corrected WBC 35.7 H* RBC Hgb Hct MCV MCH MCHC RDW Std Deviation RDW Coeff of Harper Plt Count MPV Neut % (Auto) Absolute Neuts (auto) 26.8 H Absolute Lymphs (auto) 5.71 H Total Counted 100 Neutrophils % (Manual) 69 Band Neutrophils % 6 H Lymphocytes % (Manual) 16 L Monocytes % (Manual) 4 Eosinophils % (Manual) 2 Metamyelocytes % 1 Myelocytes % 2 H Promyelocytes % Nucleated RBCs/100 WBC 6 H Diff Path Review Reviewed Reviewed Platelet Estimate MOD INC RBC Morphology Polychromasia 1+ Hypochromasia 1+ Anisocytosis 1+ Microcytosis 1+ Specimen Type Sample Site pH Bicarbonate Actual POC Total CO2 Base Excess O2 Saturation O2 % ABG pCO2 ABG pO2 Ramy Test Respiration Rate O2 Delivery Device EPAP Blood Gas Notified Whom Blood Gas Notified Time Sodium Potassium Chloride Carbon Dioxide Anion Gap BUN Creatinine Estim Creat Clear Calc Est GFR (MDRD) Af Amer Est GFR (MDRD) Non-Af BUN/Creatinine Ratio Glucose Calcium Magnesium Total Bilirubin AST ALT Alkaline Phosphatase Ammonia Total Protein Albumin Globulin Albumin/Globulin Ratio TSH 10.60 H Free T4 Hep Bs Antigen Hep Bs Antibody Hep B Core Total Ab Hep B Core IgM Ab POC Glucose 08/17/19 08/17/19 08/17/19 11:17 17:10 17:20 WBC Corrected WBC RBC Hgb Hct MCV MCH MCHC RDW Std Deviation RDW Coeff of Harper Plt Count MPV Neut % (Auto) Absolute Neuts (auto) Absolute Lymphs (auto) Total Counted Neutrophils % (Manual) Band Neutrophils % Lymphocytes % (Manual) Monocytes % (Manual) Eosinophils % (Manual) Metamyelocytes % Myelocytes % Promyelocytes % Nucleated RBCs/100 WBC Diff Path Review Platelet Estimate RBC Morphology Polychromasia Hypochromasia Anisocytosis Microcytosis Specimen Type Sample Site pH Bicarbonate Actual POC Total CO2 Base Excess O2 Saturation O2 % ABG pCO2 ABG pO2 Ramy Test Respiration Rate O2 Delivery Device EPAP Blood Gas Notified Whom Blood Gas Notified Time Sodium Potassium Chloride Carbon Dioxide Anion Gap BUN Creatinine Estim Creat Clear Calc Est GFR (MDRD) Af Amer Est GFR (MDRD) Non-Af BUN/Creatinine Ratio Glucose Calcium Magnesium Total Bilirubin AST ALT Alkaline Phosphatase Ammonia Total Protein Albumin Globulin Albumin/Globulin Ratio TSH Free T4 Hep Bs Antigen Hep Bs Antibody Hep B Core Total Ab Pending Hep B Core IgM Ab Pending POC Glucose 155 H 140 H 08/17/19 08/17/19 08/18/19 17:20 18:20 00:58 WBC Corrected WBC RBC Hgb Hct MCV MCH MCHC RDW Std Deviation RDW Coeff of Harper Plt Count MPV Neut % (Auto) Absolute Neuts (auto) Absolute Lymphs (auto) Total Counted Neutrophils % (Manual) Band Neutrophils % Lymphocytes % (Manual) Monocytes % (Manual) Eosinophils % (Manual) Metamyelocytes % Myelocytes % Promyelocytes % Nucleated RBCs/100 WBC Diff Path Review Platelet Estimate RBC Morphology Polychromasia Hypochromasia Anisocytosis Microcytosis Specimen Type Sample Site pH Bicarbonate Actual POC Total CO2 Base Excess O2 Saturation O2 % ABG pCO2 ABG pO2 Ramy Test Respiration Rate O2 Delivery Device EPAP Blood Gas Notified Whom Blood Gas Notified Time Sodium 141 Potassium 3.7 Chloride 114 H Carbon Dioxide 18.0 L Anion Gap 9 BUN 32 H Creatinine 4.23 H Estim Creat Clear Calc 10.77 Est GFR (MDRD) Af Amer 14 L Est GFR (MDRD) Non-Af 11 L BUN/Creatinine Ratio 7.6 L Glucose 165 H Calcium 8.7 Magnesium Total Bilirubin AST ALT Alkaline Phosphatase Ammonia Total Protein Albumin Globulin Albumin/Globulin Ratio TSH Free T4 Hep Bs Antigen Non-Reactive Hep Bs Antibody Reactive Hep B Core Total Ab Hep B Core IgM Ab POC Glucose 146 H 08/18/19 08/18/19 08/18/19 07:32 08:50 08:50 WBC 36.9 H* Corrected WBC RBC 2.78 L Hgb 8.9 L Hct 28.8 L MCV 103.6 H MCH 32.0 MCHC 30.9 L RDW Std Deviation 64.8 H RDW Coeff of Harper 17.7 H Plt Count 332 MPV 9.1 Neut % (Auto) Not Reportable Absolute Neuts (auto) 26.9 H Absolute Lymphs (auto) 3.70 Total Counted 100 Neutrophils % (Manual) 73 H Band Neutrophils % Lymphocytes % (Manual) 10 L Monocytes % (Manual) 6 Eosinophils % (Manual) Metamyelocytes % 6 H Myelocytes % 4 H Promyelocytes % 1 H Nucleated RBCs/100 WBC Diff Path Review May foll Platelet Estimate ADEQUATE RBC Morphology NORM C+C Polychromasia Hypochromasia Anisocytosis Microcytosis Specimen Type Sample Site pH Bicarbonate Actual POC Total CO2 Base Excess O2 Saturation O2 % ABG pCO2 ABG pO2 Ramy Test Respiration Rate O2 Delivery Device EPAP Blood Gas Notified Whom Blood Gas Notified Time Sodium 141 Potassium 3.9 Chloride 115 H Carbon Dioxide 18.0 L Anion Gap 8 BUN 42 H Creatinine 4.82 H Estim Creat Clear Calc 9.45 Est GFR (MDRD) Af Amer 12 L Est GFR (MDRD) Non-Af 10 L BUN/Creatinine Ratio 8.7 L Glucose 157 H Calcium 8.4 L Magnesium Total Bilirubin 0.30 AST 63 H ALT 19 Alkaline Phosphatase 326 H Ammonia Total Protein 5.2 L Albumin 1.2 L Globulin 4.0 Albumin/Globulin Ratio 0.3 L TSH Free T4 0.69 L Hep Bs Antigen Hep Bs Antibody Hep B Core Total Ab Hep B Core IgM Ab POC Glucose 128 H 08/18/19 08/18/19 08/18/19 08:50 09:35 12:17 WBC Corrected WBC RBC Hgb Hct MCV MCH MCHC RDW Std Deviation RDW Coeff of Harper Plt Count MPV Neut % (Auto) Absolute Neuts (auto) Absolute Lymphs (auto) Total Counted Neutrophils % (Manual) Band Neutrophils % Lymphocytes % (Manual) Monocytes % (Manual) Eosinophils % (Manual) Metamyelocytes % Myelocytes % Promyelocytes % Nucleated RBCs/100 WBC Diff Path Review Platelet Estimate RBC Morphology Polychromasia Hypochromasia Anisocytosis Microcytosis Specimen Type ART Sample Site R Radial pH 7.29 L Bicarbonate Actual 16.6 L POC Total CO2 18 Base Excess -10 L O2 Saturation 95 O2 % 40 ABG pCO2 34.9 L ABG pO2 82 Ramy Test POS Respiration Rate 14 O2 Delivery Device Bi / C PAP EPAP 8 Blood Gas Notified Whom ICU MD Blood Gas Notified Time 934 Sodium Potassium Chloride Carbon Dioxide Anion Gap BUN Creatinine Estim Creat Clear Calc Est GFR (MDRD) Af Amer Est GFR (MDRD) Non-Af BUN/Creatinine Ratio Glucose Calcium Magnesium Total Bilirubin AST ALT Alkaline Phosphatase Ammonia 13.0 Total Protein Albumin Globulin Albumin/Globulin Ratio TSH Free T4 Hep Bs Antigen Hep Bs Antibody Hep B Core Total Ab Hep B Core IgM Ab POC Glucose 129 H 08/18/19 08/18/19 08/19/19 18:07 23:18 04:30 WBC 31.5 H* Corrected WBC RBC 2.69 L Hgb 8.4 L Hct 27.0 L MCV 100.4 H MCH 31.2 MCHC 31.1 L RDW Std Deviation 60.4 H RDW Coeff of Harper 17.7 H Plt Count 218 MPV 10.0 Neut % (Auto) Not Reportable Absolute Neuts (auto) 22.7 H Absolute Lymphs (auto) 4.09 Total Counted 100 Neutrophils % (Manual) 69 Band Neutrophils % 3 Lymphocytes % (Manual) 13 L Monocytes % (Manual) 11 H Eosinophils % (Manual) Metamyelocytes % 4 H Myelocytes % Promyelocytes % Nucleated RBCs/100 WBC Diff Path Review May foll Platelet Estimate ADEQUATE RBC Morphology N CYTIC Polychromasia Hypochromasia RARE Anisocytosis RARE Microcytosis Specimen Type Sample Site pH Bicarbonate Actual POC Total CO2 Base Excess O2 Saturation O2 % ABG pCO2 ABG pO2 Ramy Test Respiration Rate O2 Delivery Device EPAP Blood Gas Notified Whom Blood Gas Notified Time Sodium Potassium Chloride Carbon Dioxide Anion Gap BUN Creatinine Estim Creat Clear Calc Est GFR (MDRD) Af Amer Est GFR (MDRD) Non-Af BUN/Creatinine Ratio Glucose Calcium Magnesium Total Bilirubin AST ALT Alkaline Phosphatase Ammonia Total Protein Albumin Globulin Albumin/Globulin Ratio TSH Free T4 Hep Bs Antigen Hep Bs Antibody Hep B Core Total Ab Hep B Core IgM Ab POC Glucose 109 120 H 08/19/19 04:30 WBC Corrected WBC RBC Hgb Hct MCV MCH MCHC RDW Std Deviation RDW Coeff of Harper Plt Count MPV Neut % (Auto) Absolute Neuts (auto) Absolute Lymphs (auto) Total Counted Neutrophils % (Manual) Band Neutrophils % Lymphocytes % (Manual) Monocytes % (Manual) Eosinophils % (Manual) Metamyelocytes % Myelocytes % Promyelocytes % Nucleated RBCs/100 WBC Diff Path Review Platelet Estimate RBC Morphology Polychromasia Hypochromasia Anisocytosis Microcytosis Specimen Type Sample Site pH Bicarbonate Actual POC Total CO2 Base Excess O2 Saturation O2 % ABG pCO2 ABG pO2 Ramy Test Respiration Rate O2 Delivery Device EPAP Blood Gas Notified Whom Blood Gas Notified Time Sodium 138 Potassium 3.2 L Chloride 107 Carbon Dioxide 24.0 Anion Gap 7 BUN 40 H Creatinine 3.47 H Estim Creat Clear Calc 13.12 Est GFR (MDRD) Af Amer 17 L Est GFR (MDRD) Non-Af 14 L BUN/Creatinine Ratio 11.5 Glucose 129 H Calcium 8.3 L Magnesium 1.9 Total Bilirubin AST ALT Alkaline Phosphatase Ammonia Total Protein Albumin Globulin Albumin/Globulin Ratio TSH Free T4 Hep Bs Antigen Hep Bs Antibody Hep B Core Total Ab Hep B Core IgM Ab POC Glucose Microbiology 08/17/19 00:15 Sputum, Tracheal Aspirate Gram Stain - Final 08/17/19 00:15 Sputum, Tracheal Aspirate Respiratory Culture - Preliminary Presumptive C albicans 08/11/19 13:21 Bone - Buttock Gram Stain - Final 08/11/19 13:21 Bone - Buttock Wound Culture - Final Meth. resistant Staph. aureus Corynebacterium striatum 08/11/19 13:21 Bone - Buttock Anaerobic Culture - Final Bacteroides vulgatus Clinical Impression(s) from Imaging Studies Chest X-Ray 08/09/19 15:11 IMPRESSION: No major interval change. Electronically Signed: Jimmy Lara DO at 16:14 EST Tel [phone], Service support , Chest CT 08/10/19 19:00 IMPRESSION: Bilateral lower lobe atelectasis, right maternal left with mild right-sided pleural effusion. Mild ascites. No focal infiltrate or pleural effusion. Electronically Signed: Yohana Del Rio MD at 4:05 EST , Service support , Pelvis CT 08/11/19 07:52 IMPRESSION: Large soft tissue gap most likely secondary to debridement overlying the right gluteus muscle. Focal scalloping of the posterior margin of the right hemisacrum. Osteomyelitis should be ruled out. Electronically Signed: Alan Dennis, at 11:07 EST , Service support , Chest X-Ray 08/12/19 13:59 IMPRESSION: Cardiomegaly with increased pleural effusions. Low volume with compression atelectasis as described. No acute superimposed finding. Electronically Signed: Jerod Pascal MD at 14:55 EST , Service support , Chest Ultrasound 08/13/19 08:47 IMPRESSION: Tiny pleural effusion. Electronically Signed: Alan Dennis, at 15:53 EST , Service support , Renal Ultrasound 08/13/19 12:47 IMPRESSION: Normal renal ultrasound bilaterally with no changes from prior exam. Empty urinary bladder by Ahmadi catheter. Electronically Signed: Karolina Graham MD at 15:44 EST , Service support , Chest X-Ray 08/17/19 01:55 IMPRESSION: Decreasing lung expansion. Increasing pulmonary edema. Likely increasing atelectasis within the right lower lobe, possibly increasing consolidation and infection within the right lower lobe.. at 0331 Reported and signed by: Mendez Smith MD Electronically Signed: Mendez Smith MD at 3:30 EST Tel , Service support , Chest X-Ray 08/17/19 10:03 IMPRESSION: 1. Interval placement of right internal jugular tunnel dialysis catheter tip the catheter overlying spur vena cava and no pneumothorax. 2. Interval placement of nasogastric tube with the tip below the diaphragm. 3. Poor inspiration with some bibasilar atelectasis Electronically Signed: Daniel Gonzales MD at 12:26 EST Tel , Service support , Brain CT 08/18/19 09:58 IMPRESSION: Normal unenhanced CT scan of the brain. Electronically Signed: Alan Dennis, at 15:45 EST , Service support , Medical Necessity - Tobacco Use Smoking Status: Former smoker Tobacco Use: Vapor Assessment/Plan All Active Problems ILIANA (acute kidney injury) (Acute) Fecal soiling due to fecal incontinence (Acute) RECOMMENDATIONS: 1. Continue Keppra and as needed Ativan for further seizure activity. 2. Electrolyte repletion 3. Wean oxygen to maintain saturations at or above 90% 4. Await family arrival with plans for eventual transition to comfort care measures. IMPRESSIONS: 1. Severe sepsis secondary to sacral osteomyelitis Continue current supportive measures. The patient has been weaned from vasopressor support. 2. Encephalopathy Appears to be secondary to nonconvulsive status epilepticus, following completion of EEG and subsequent consultation with neurology. The patient has b een started on Keppra and as needed Ativan for further seizure activity. Recommendations were made to transfer the patient to a neuro ICU with continuous EEG monitoring capabilities. However, following discussion with the family, they have elected to pursue eventual transition to comfort care measures and initiation of hospice care services. 3. Acute kidney injury, presumed secondary to ischemic ATN Continue current supportive measures with hemodialysis per nephrology recommendations. 4. History of obstructive sleep apnea Continue AVAPS therapy as tolerated by the patient for now. 5. History of bipolar disorder/diabetes mellitus/hypertension/hyperlipidemia/obesity Complicates care, management, recovery and prognosis. Patient to remain n.p.o. for now, given tenuous respiratory status. TIME: 35 minutes of critical care time, independent of procedures, was spent addressing the patient's severe sepsis secondary to sacral osteomyelitis, encephalopathy, nonconvulsive status epilepticus, acute kidney injury, history of obstructive sleep apnea, bipolar disorder, review of all data and collaboration with the care team. ([id number]) Code Visit 9xxxx: [id number] Critical care first hour
[2019-08-19] MEDS: Menthol/Lanolin/Calamine/Znox 113 GM Tube 1 APPLIC TOPICAL ×2 (09:05→12:47)
[2019-08-19 09:19] LABS: Pathologist Review Reviewed
[2019-08-19] MEDS: Allopurinol 300 MG Tablet GT (09:39)
--- NOTE | 2019-08-19 10:45 | CASEMGMT ---
As per physician, family is now open to comfort care and may opt to keep pt here under the physician's care. SW spoke w/ throughout morning about pt staying here under physician's care for comfort care versus going to the inpt hospice unit. Family at this time would like pt to stay here but are open to meeting w/hospice to hear about their services. states he and two of his children can be here at 2:30pm. His other two children will be arriving this evening. SW called [facility], spoke w/Marielena, faxed referral. They can meet w/family at 2:30pm. If pt were to stay here under hospitalist's care for comfort care hospice would not get involved. However, if family decides they would like pt to be moved, they do have availability in the hospice unit. SW called back, let him know [facility] can meet w/them at 2:30pm, to let them know about their program and inpt unit. SW also suggested they go look at the inpt unit. states understanding. SW remains available for any further support or social service needs. LOPEZ Lang
--- NOTE | 2019-08-19 12:48 | PCM.PROGNOTE ---
Patient Problems: Active and Suspected Problems ILIANA (acute kidney injury) (Acute) - Physical Exam Vitals/I&O's: Vital Signs Temp Pulse Resp BP Pulse Ox 97.3 F L 120 H 26 H 112/70 93 08/19/19 08:00 08/19/19 11:00 08/19/19 11:00 08/19/19 11:00 08/19/19 11:00 Oxygen Flow Rate (L/min) 4 Oxygen Delivery Method Nasal Cannula Weight: 101.2 kg Body Mass Index (BMI) 36.9 Finger Stick Blood Glucose 134 Intake and Output for Last 24 Hours 08/17/19 08/18/19 08/19/19 23:59 23:59 23:59 Intake Total 3855.52 / 3855.52 1675.58 / 1676.76 470.34 / 470.34 Output Total 250 / 300 1750 / 1800 75 / 75 Balance 3605.52 / 3555.52 -74.42 / -123.24 395.34 / 395.34 Microbiology Past 72 Hours 08/17/19 00:15 Sputum, Tracheal Aspirate Gram Stain - Final 08/17/19 00:15 Sputum, Tracheal Aspirate Respiratory Culture - Final Presumptive C albicans 08/11/19 13:21 Bone - Buttock Gram Stain - Final 08/11/19 13:21 Bone - Buttock Wound Culture - Final Meth. resistant Staph. aureus Corynebacterium striatum 08/11/19 13:21 Bone - Buttock Anaerobic Culture - Final Bacteroides vulgatus Laboratory Results 08/16/19 05:44: Diff Path Review Reviewed 08/17/19 05:18: Diff Path Review Reviewed 08/18/19 07:32: POC Glucose 128 H 08/18/19 08:50: WBC 36.9 H*, RBC 2.78 L, Hgb 8.9 L, Hct 28.8 L, MCV 103.6 H, MCH 32.0, MCHC 30.9 L, RDW Std Deviation 64.8 H, RDW Coeff of Harper 17.7 H, Plt Count 332, MPV 9.1, Absolute Neuts (auto) 26.9 H, Absolute Lymphs (auto) 3.70, Total Counted 100, Neutrophils % (Manual) 73 H, Lymphocytes % (Manual) 10 L, Monocytes % (Manual) 6, Metamyelocytes % 6 H, Myelocytes % 4 H, Promyelocytes % 1 H, Diff Path Review Reviewed, Platelet Estimate ADEQUATE, RBC Morphology NORM C+C 08/18/19 18:07: POC Glucose 109 08/18/19 23:18: POC Glucose 120 H 08/19/19 04:30: WBC 31.5 H*, RBC 2.69 L, Hgb 8.4 L, Hct 27.0 L, MCV 100.4 H, MCH 31.2, MCHC 31.1 L, RDW Std Deviation 60.4 H, RDW Coeff of Harper 17.7 H, Plt Count 218, MPV 10.0, Neut % (Auto) Not Reportable, Absolute Neuts (auto) 22.7 H, Absolute Lymphs (auto) 4.09, Total Counted 100, Neutrophils % (Manual) 69, Band Neutrophils % 3, Lymphocytes % (Manual) 13 L, Monocytes % (Manual) 11 H, Metamyelocytes % 4 H, Diff Path Review May foll, Platelet Estimate ADEQUATE, RBC Morphology N CYTIC, Hypochromasia RARE, Anisocytosis RARE 08/19/19 04:30: Sodium 138, Potassium 3.2 L, Chloride 107, Carbon Dioxide 24.0, Anion Gap 7, BUN 40 H, Creatinine 3.47 H, Estim Creat Clear Calc 13.12, Est GFR (MDRD) Af Amer 17 L, Est GFR (MDRD) Non-Af 14 L, BUN/Creatinine Ratio 11.5, Glucose 129 H, Calcium 8.3 L, Magnesium 1.9 Current Medications Acetaminophen (Tylenol Liquid) 650 mg GT Q6H PRN PRN PRN Reason: PAIN 1-3/ TEMP >100.7 Albuterol Sulfate (Ventolin Aerosols) 2.5 mg INHALATION Q2H PRN PRN PRN Reason: SOB/Wheezing Allopurinol (Zyloprim) 300 mg GT DAILY DUONG Last Admin: 08/19/19 09:39 Dose: 300 mg Documented by: Aspirin (Aspirin, Baby) 81 mg GT QHS DUONG Last Admin: 08/18/19 22:09 Dose: Not Given Documented by: Calamine/Phenol (Calmoseptine Ointment) 1 applic TOPICAL 4X/DAY DUONG; Protocol Last Admin: 08/19/19 09:05 Dose: 1 applicatio Documented by: Glucagon () 1 mg IM .X1 PRN PRN Reason: Hypoglycemia Hyoscyamine Sulfate (Levsin/Sl) 0.125 mg SUBLINGUAL Q4H PRN PRN PRN Reason: CONGESTION Last Admin: 08/19/19 04:30 Dose: 0.125 mg Documented by: Dextrose (Dextrose 10%-Water) 250 mls @ 999 mls/hr IV .Q16M PRN; Protocol PRN Reason: HYPOGLYCEMIA Sodium Chloride () 250 mls @ 15 mls/hr IV .[id number] PRN PRN Reason: Saline Flush Sodium Chloride () 250 mls @ 15 mls/hr IV .[id number] PRN PRN Reason: Additional IVPB Infusion Norepinephrine Bitartrate 8 mg (/ Sodium Chloride) 250 mls @ 9.375 mls/hr CONT INF .[id number] [facility]; Protocol Last Titration: 08/19/19 06:00 Dose: 0 mcg/min, 0 mls/hr Documented by: Pantoprazole Sodium 40 mg/ (Sodium Chloride) 110 mls @ 330 mls/hr IV Q12 [facility] Last Infusion: 08/19/19 10:26 Dose: Infused Documented by: Levetiracetam 500 mg/ Sodium (Chloride) 105 mls @ 400 mls/hr IV Q12 [facility]ONG Last Infusion: 08/19/19 10:26 Dose: Infused Documented by: Insulin Human Lispro (Humalog Kwikpen (Bkc)) 0 unit SC Q6 [facility]; Protocol Last Admin: 08/19/19 06:05 Dose: Not Given Documented by: Levothyroxine Sodium (Synthroid) 75 mcg GT DAILY@0600 [facility] Last Admin: 08/19/19 06:28 Dose: 75 mcg Documented by: Lorazepam (Ativan) 1 - 2 mg IV Q2H PRN PRN PRN Reason: SEIZURES Last Admin: 08/19/19 01:42 Dose: 2 mg Documented by: Prochlorperazine Edisylate (Compazine Iv) 5 mg IV Q4H PRN PRN PRN Reason: Breakthrough Nausea/Vomiting Last Admin: 08/10/19 10:33 Dose: 5 mg Documented by: Scopolamine HBr (Transderm-Scop) 1 patch TD Q3D PRN PRN Reason: CONGESTION Sodium Chloride () 10 - 40 ml IV UD PRN PRN Reason: Open End PICC Flush Last Admin: 08/19/19 06:28 Dose: 30 ml Documented by: Sodium Chloride (0.9% Nacl (Sterile) Posiflush) 10 - 40 ml IV UD PRN PRN Reason: Port access or dressing change Medical Necessity - Tobacco Use Smoking Status: Former smoker Tobacco Use: Vapor Assessment/Plan All Active Problems ILIANA (acute kidney injury) (Acute) Fecal soiling due to fecal incontinence (Acute) ILIANA secondary to ATN with septic shock LE edema Metabolic acidosis resolved Sepsis with osteo The family elected to proceed with eventual comfort care and no dialysis per HD RN and CHARGING OPERATOR and critical care note from today. Family meeting 2.30 pm to decide for inpatient vs outpatient hospice. Renal will sign off.Please call with any questions or concerns. d/w RN
[2019-08-19 13:00] LABS: Bedside Glucose 113 mg/dL (70-110)
[2019-08-19 13:25] LABS: Pathologist Review Reviewed
--- NOTE | 2019-08-19 14:51 | CASEMGMT ---
RN Note: Hospice Liason met with family. Family would like to wait to sign Hospice papers until tomorrow am as they wish to have sons from out of town here. Per Liason family is agreeable to Hospice including transfer to [facility]. Liason will return tomorrow am to speak with family. Fco COLON RN ACM
--- NOTE | 2019-08-19 16:16 | PCM.PN.HOSP ---
Patient Problems: Active and Suspected Problems ILIANA (acute kidney injury) (Acute) Subjective: Not communicative and not alert. She continues to have head twitching which is now felt to be secondary to her nonconvulsive status epilepticus Vitals/I&O's: Vital Signs Temp Pulse Resp BP Pulse Ox 97.2 F L 124 H 31 H 115/59 L 94 08/19/19 12:00 08/19/19 15:00 08/19/19 15:00 08/19/19 15:00 08/19/19 16:00 Oxygen Flow Rate (L/min) 4 Oxygen Delivery Method Nasal Cannula Weight: 223 lb 1.725 oz Body Mass Index (BMI) 36.9 Finger Stick Blood Glucose 134 Intake and Output for Last 24 Hours 08/17/19 08/18/19 08/19/19 23:59 23:59 23:59 Intake Total 3855.52 / 3855.52 1675.58 / 1676.76 470.34 / 470.34 Output Total 250 / 300 1750 / 1800 90 / 90 Balance 3605.52 / 3555.52 -74.42 / -123.24 380.34 / 380.34 General: Head tremor- - Does not respond to commands HEENT: Atraumatic, Normocephalic, Sluggish Pupils Oral: Moist Mucosa Neck: Supple Lungs: Bilateral rhonchi, diminished Cardiovascular: Regular Rhythm, Normal S1, Normal S2, No murmurs, Tachycardic Abdomen: Soft, Non-Distended, No Hepato-splenomegaly Extremities: Capillary Refill Less than 3 Seconds, Edema Skin: No rashes, No breakdown, Ulcer/ Wound - Dressing on her right buttock is intact Neurological: - - Given her lack of following commands cannot examine, there does appear to be a chronic head which associated with her nonconvulsive status epilepticus Psych/Mental Status: Cannot evaluate Microbiology Past 72 Hours 08/17/19 00:15 Sputum, Tracheal Aspirate Gram Stain - Final 08/17/19 00:15 Sputum, Tracheal Aspirate Respiratory Culture - Final Presumptive C albicans 08/11/19 13:21 Bone - Buttock Gram Stain - Final 08/11/19 13:21 Bone - Buttock Wound Culture - Final Meth. resistant Staph. aureus Corynebacterium striatum 08/11/19 13:21 Bone - Buttock Anaerobic Culture - Final Bacteroides vulgatus Laboratory Results 08/18/19 07:32: POC Glucose 128 H 08/18/19 08:50: WBC 36.9 H*, RBC 2.78 L, Hgb 8.9 L, Hct 28.8 L, MCV 103.6 H, MCH 32.0, MCHC 30.9 L, RDW Std Deviation 64.8 H, RDW Coeff of Harper 17.7 H, Plt Count 332, MPV 9.1, Absolute Neuts (auto) 26.9 H, Absolute Lymphs (auto) 3.70, Total Counted 100, Neutrophils % (Manual) 73 H, Lymphocytes % (Manual) 10 L, Monocytes % (Manual) 6, Metamyelocytes % 6 H, Myelocytes % 4 H, Promyelocytes % 1 H, Diff Path Review Reviewed, Platelet Estimate ADEQUATE, RBC Morphology NORM C+C 08/18/19 18:07: POC Glucose 109 08/18/19 23:18: POC Glucose 120 H 08/19/19 04:30: WBC 31.5 H*, RBC 2.69 L, Hgb 8.4 L, Hct 27.0 L, MCV 100.4 H, MCH 31.2, MCHC 31.1 L, RDW Std Deviation 60.4 H, RDW Coeff of Harper 17.7 H, Plt Count 218, MPV 10.0, Neut % (Auto) Not Reportable, Absolute Neuts (auto) 22.7 H, Absolute Lymphs (auto) 4.09, Total Counted 100, Neutrophils % (Manual) 69, Band Neutrophils % 3, Lymphocytes % (Manual) 13 L, Monocytes % (Manual) 11 H, Metamyelocytes % 4 H, Diff Path Review Reviewed, Platelet Estimate ADEQUATE, RBC Morphology N CYTIC, Hypochromasia RARE, Anisocytosis RARE 08/19/19 04:30: Sodium 138, Potassium 3.2 L, Chloride 107, Carbon Dioxide 24.0, Anion Gap 7, BUN 40 H, Creatinine 3.47 H, Estim Creat Clear Calc 13.12, Est GFR (MDRD) Af Amer 17 L, Est GFR (MDRD) Non-Af 14 L, BUN/Creatinine Ratio 11.5, Glucose 129 H, Calcium 8.3 L, Magnesium 1.9 08/19/19 12:46: POC Glucose 113 H Current Medications Acetaminophen (Tylenol Liquid) 650 mg GT Q6H PRN PRN PRN Reason: PAIN 1-3/ TEMP >100.7 Albuterol Sulfate (Ventolin Aerosols) 2.5 mg INHALATION Q2H PRN PRN PRN Reason: SOB/Wheezing Allopurinol (Zyloprim) 300 mg GT DAILY [facility] Last Admin: 08/19/19 09:39 Dose: 300 mg Documented by: Aspirin (Aspirin, Baby) 81 mg GT QHS [facility] Last Admin: 08/18/19 22:09 Dose: Not Given Documented by: Calamine/Phenol (Calmoseptine Ointment) 1 applic TOPICAL 4X/DAY [facility]; Protocol Last Admin: 08/19/19 12:47 Dose: 1 applicatio Documented by: Glucagon () 1 mg IM .X1 PRN PRN Reason: Hypoglycemia Hyoscyamine Sulfate (Levsin/Sl) 0.125 mg SUBLINGUAL Q4H PRN PRN PRN Reason: CONGESTION Last Admin: 08/19/19 13:00 Dose: 0.125 mg Documented by: Dextrose (Dextrose 10%-Water) 250 mls @ 999 mls/hr IV .Q16M PRN; Protocol PRN Reason: HYPOGLYCEMIA Sodium Chloride () 250 mls @ 15 mls/hr IV .[id number] PRN PRN Reason: Saline Flush Sodium Chloride () 250 mls @ 15 mls/hr IV .[id number] PRN PRN Reason: Additional IVPB Infusion Norepinephrine Bitartrate 8 mg (/ Sodium Chloride) 250 mls @ 9.375 mls/hr CONT INF .[id number] [facility]; Protocol Last Titration: 08/19/19 06:00 Dose: 0 mcg/min, 0 mls/hr Documented by: Pantoprazole Sodium 40 mg/ (Sodium Chloride) 110 mls @ 330 mls/hr IV Q12 [facility] Last Infusion: 08/19/19 10:26 Dose: Infused Documented by: Levetiracetam 500 mg/ Sodium (Chloride) 105 mls @ 400 mls/hr IV Q12 [facility] Last Infusion: 08/19/19 10:26 Dose: Infused Documented by: Insulin Human Lispro (Humalog Kwikpen (Bkc)) 0 unit SC Q6 [facility]; Protocol Last Admin: 08/19/19 12:47 Dose: Not Given Documented by: Levothyroxine Sodium (Synthroid) 75 mcg GT DAILY@0600 [facility] Last Admin: 08/19/19 06:28 Dose: 75 mcg Documented by: Lorazepam (Ativan) 1 - 2 mg IV Q2H PRN PRN PRN Reason: SEIZURES Last Admin: 08/19/19 15:18 Dose: 2 mg Documented by: Prochlorperazine Edisylate (Compazine Iv) 5 mg IV Q4H PRN PRN PRN Reason: Breakthrough Nausea/Vomiting Last Admin: 08/10/19 10:33 Dose: 5 mg Documented by: Scopolamine HBr (Transderm-Scop) 1 patch TD Q3D PRN PRN Reason: CONGESTION Sodium Chloride () 10 - 40 ml IV UD PRN PRN Reason: Open End PICC Flush Last Admin: 08/19/19 15:18 Dose: 10 ml Documented by: Sodium Chloride (0.9% Nacl (Sterile) Posiflush) 10 - 40 ml IV UD PRN PRN Reason: Port access or dressing change STROKE Vital Signs/Narrative: Vital Signs Pulse Resp BP Pulse Ox 08/19/19 16:00 94 08/19/19 15:00 124 H 31 H 115/59 L 92 08/19/19 14:00 122 H 44 H 108/56 L 94 08/19/19 13:00 122 H 29 H 111/57 L 92 Medical Necessity - Tobacco Use Smoking Status: Former smoker Tobacco Use: Vapor Assessment/Plan All Active Problems ILIANA (acute kidney injury) (Acute) Fecal soiling due to fecal incontinence (Acute) 1. Severe sepsis secondary to a stage IV pressors for as well as osteo/acute metabolic encephalopathy secondary to sepsis and infection -She has been on multiple antibiotics, currently she is on Flagyl, cefepime, and daptomycin based on MRSA culture data as well as Bacteroides and corynebacterium -She remains with a very high leukocytosis therefore an NG tube was placed and she was started on p.o. vancomycin to make sure that there is adequate treatment for the potential C. difficile she is positive for the antigen but negative for the toxin, Diflucan was also added -Extensive discussion was had with the family given the addition of nonconvulsive status epilepticus. She continues to have encephalopathy likely secondary to both the severe sepsis with her continued elevation in her white blood cell count, as well as her constant seizure activity. They are deciding upon comfort care and whether or not they want to stay here or go to the inpatient hospice facility. 2. Acute renal failure causing some component of metabolic encephalopathy/hypernatremia and hyperchloremia -Dialysis catheter was placed and she was started on dialysis, she has needed vasopressor support whenever she was on dialysis and they had to be very slow with moving any fluid given the transition to possible comfort care dialysis was discontinued per nephrology -She is still in renal failure and has had only 90 cc of urine output today and 100 yesterday -Appreciate nephrology's assistance -Now that she has an NG tube can resume oral medications including her allopurinol 3. Acute on chronic hypercapnic respiratory failure -Appreciate pulmonology's input, continue with BiPAP -She seems to transition between tolerating nasal cannula needing BiPAP 4. DM 2 -We will hold her oral medications and continue with sliding scale insulin -Accu-Cheks AC at bedtime 5. Anxiety/depression/bipolar -She can restart her medications when she becomes more alert at this time wanting to rule out that her medications have not caused significant sedation given her renal failure 6. HTN/HLD -Her blood pressures have been soft and since she will be started on dialysis will hold her blood pressure medications -Can continue her statin 7. Hypothyroidism -Her Synthroid has been held since she was n.p.o., it has been restarted since NG tube was placed -TSH was 10, continue with Synthroid 8. GERD -Continue with PPI per NG tube I discussed with the family the role of hospice and they met with customer services coordinator today. We await their decision in regards to if they want to proceed and if they want to proceed here in the hospital or at the inpatient hospice unit. DVT: Lovenox Code Visit Inpatient E&M: 50267 Subs Hosp L2
[2019-08-19 17:14] LABS: Hepatitis B Core AB IgM Negative (Negative)
[2019-08-20] VITALS (18 sets, daily range): BP systolic 110–143; BP diastolic 59–78; PULSE 99–122; RESP 14–33; TEMP 36.2–36.4; O2SAT 87–98
[2019-08-20 00:36] LABS: Bedside Glucose 100 mg/dL (70-110)
[2019-08-20 03:35] LABS: Bedside Glucose 110 mg/dL (70-110)
[2019-08-20] MEDS: LORazepam 2 MG/ML Syringe IV ×2 (04:03→10:38)
[2019-08-20] MEDS: Levothyroxine 75 MCG Tablet GT (05:53)
[2019-08-20 06:16] LABS: Bedside Glucose 91 mg/dL (70-110)
--- NOTE | 2019-08-20 06:35 | PN_ITS ---
Subjective: The patient was seen and examined at the bedside this morning. Events from the last 24 hours have been reviewed. The patient is currently afebrile, hemodynamically stable and maintaining appropriate oxygen saturations on AVAPS with an FIO2 of 30%. The patient's family met with the hospice consultant yesterday and are planning to transition the patient to comfort care measures this morning. She will then likely be transferred to the life care inpatient unit. Objective: The patient's most recent lab work, culture data and imaging studies have all been personally reviewed. General: Lethargic, - - AVAPS in place HEENT: Atraumatic, Normocephalic Oral: Dry Mucosa Neck: Supple, No Nodes, Trachea Midline Lungs: Diminished, Rhonchi, Tachypneic Cardiovascular: Normal S1, Normal S2, No murmurs, Tachycardic Abdomen: Bowel Sounds Present, Soft, Non Tender Extremities: No clubbing, No cyanosis, Edema Skin: Ulcer/ Wound - Unchanged from previous Musculoskeletal: No Muscle Wasting Lymphatic: No Cervical, Supraclavicular, or Inguinal Adenopathy Neurological: - - Rhythmic jerking of head. Nonresponsive to verbal and tactile stimulation. Vital Signs Temp Pulse Resp BP Pulse Ox 97.5 F L 113 H 24 H 125/66 H 98 08/20/19 00:00 08/20/19 06:00 08/20/19 06:00 08/20/19 06:00 08/20/19 06:00 Oxygen Flow Rate (L/min) 4 Oxygen Delivery Method Bi-pap Weight: 222 lb 0.088 oz Body Mass Index (BMI) 36.9 Finger Stick Blood Glucose 134 Intake and Output for Last 24 Hours 08/18/19 08/19/19 08/20/19 23:59 23:59 23:59 Intake Total 1675.58 / 1676.76 470.34 / 470.34 215 / 215 Output Total 1750 / 1800 90 / 140 60 / 60 Balance -74.42 / -123.24 380.34 / 330.34 155 / 155 Labs (Last 48 Hours) 08/16/19 08/17/19 08/17/19 05:44 05:18 17:20 WBC RBC Hgb Hct MCV MCH MCHC RDW Std Deviation RDW Coeff of Harper Plt Count MPV Neut % (Auto) Absolute Neuts (auto) Absolute Lymphs (auto) Total Counted Neutrophils % (Manual) Band Neutrophils % Lymphocytes % (Manual) Monocytes % (Manual) Metamyelocytes % Myelocytes % Promyelocytes % Diff Path Review Reviewed Reviewed Platelet Estimate RBC Morphology Hypochromasia Anisocytosis Specimen Type Sample Site pH Bicarbonate Actual POC Total CO2 Base Excess O2 Saturation O2 % ABG pCO2 ABG pO2 Ramy Test Respiration Rate O2 Delivery Device EPAP Blood Gas Notified Whom Blood Gas Notified Time Sodium Potassium Chloride Carbon Dioxide Anion Gap BUN Creatinine Estim Creat Clear Calc Est GFR (MDRD) Af Amer Est GFR (MDRD) Non-Af BUN/Creatinine Ratio Glucose Calcium Magnesium Total Bilirubin AST ALT Alkaline Phosphatase Ammonia Total Protein Albumin Globulin Albumin/Globulin Ratio Free T4 Hep Bs Antigen Hep Bs Antibody Hep B Core Total Ab Negative Hep B Core IgM Ab Negative POC Glucose 08/17/19 08/18/19 08/18/19 17:20 00:58 07:32 WBC RBC Hgb Hct MCV MCH MCHC RDW Std Deviation RDW Coeff of Harper Plt Count MPV Neut % (Auto) Absolute Neuts (auto) Absolute Lymphs (auto) Total Counted Neutrophils % (Manual) Band Neutrophils % Lymphocytes % (Manual) Monocytes % (Manual) Metamyelocytes % Myelocytes % Promyelocytes % Diff Path Review Platelet Estimate RBC Morphology Hypochromasia Anisocytosis Specimen Type Sample Site pH Bicarbonate Actual POC Total CO2 Base Excess O2 Saturation O2 % ABG pCO2 ABG pO2 Ramy Test Respiration Rate O2 Delivery Device EPAP Blood Gas Notified Whom Blood Gas Notified Time Sodium Potassium Chloride Carbon Dioxide Anion Gap BUN Creatinine Estim Creat Clear Calc Est GFR (MDRD) Af Amer Est GFR (MDRD) Non-Af BUN/Creatinine Ratio Glucose Calcium Magnesium Total Bilirubin AST ALT Alkaline Phosphatase Ammonia Total Protein Albumin Globulin Albumin/Globulin Ratio Free T4 Hep Bs Antigen Non-Reactive Hep Bs Antibody Reactive Hep B Core Total Ab Hep B Core IgM Ab POC Glucose 146 H 128 H 08/18/19 08/18/19 08/18/19 08:50 08:50 08:50 WBC 36.9 H* RBC 2.78 L Hgb 8.9 L Hct 28.8 L MCV 103.6 H MCH 32.0 MCHC 30.9 L RDW Std Deviation 64.8 H RDW Coeff of Harper 17.7 H Plt Count 332 MPV 9.1 Neut % (Auto) Not Reportable Absolute Neuts (auto) 26.9 H Absolute Lymphs (auto) 3.70 Total Counted 100 Neutrophils % (Manual) 73 H Band Neutrophils % Lymphocytes % (Manual) 10 L Monocytes % (Manual) 6 Metamyelocytes % 6 H Myelocytes % 4 H Promyelocytes % 1 H Diff Path Review Reviewed Platelet Estimate ADEQUATE RBC Morphology NORM C+C Hypochromasia Anisocytosis Specimen Type Sample Site pH Bicarbonate Actual POC Total CO2 Base Excess O2 Saturation O2 % ABG pCO2 ABG pO2 Ramy Test Respiration Rate O2 Delivery Device EPAP Blood Gas Notified Whom Blood Gas Notified Time Sodium 141 Potassium 3.9 Chloride 115 H Carbon Dioxide 18.0 L Anion Gap 8 BUN 42 H Creatinine 4.82 H Estim Creat Clear Calc 9.45 Est GFR (MDRD) Af Amer 12 L Est GFR (MDRD) Non-Af 10 L BUN/Creatinine Ratio 8.7 L Glucose 157 H Calcium 8.4 L Magnesium Total Bilirubin 0.30 AST 63 H ALT 19 Alkaline Phosphatase 326 H Ammonia 13.0 Total Protein 5.2 L Albumin 1.2 L Globulin 4.0 Albumin/Globulin Ratio 0.3 L Free T4 0.69 L Hep Bs Antigen Hep Bs Antibody Hep B Core Total Ab Hep B Core IgM Ab POC Glucose 08/18/19 08/18/19 08/18/19 09:35 12:17 18:07 WBC RBC Hgb Hct MCV MCH MCHC RDW Std Deviation RDW Coeff of Harper Plt Count MPV Neut % (Auto) Absolute Neuts (auto) Absolute Lymphs (auto) Total Counted Neutrophils % (Manual) Band Neutrophils % Lymphocytes % (Manual) Monocytes % (Manual) Metamyelocytes % Myelocytes % Promyelocytes % Diff Path Review Platelet Estimate RBC Morphology Hypochromasia Anisocytosis Specimen Type ART Sample Site R Radial pH 7.29 L Bicarbonate Actual 16.6 L POC Total CO2 18 Base Excess -10 L O2 Saturation 95 O2 % 40 ABG pCO2 34.9 L ABG pO2 82 Ramy Test POS Respiration Rate 14 O2 Delivery Device Bi / C PAP EPAP 8 Blood Gas Notified Whom ICU MD Blood Gas Notified Time 934 Sodium Potassium Chloride Carbon Dioxide Anion Gap BUN Creatinine Estim Creat Clear Calc Est GFR (MDRD) Af Amer Est GFR (MDRD) Non-Af BUN/Creatinine Ratio Glucose Calcium Magnesium Total Bilirubin AST ALT Alkaline Phosphatase Ammonia Total Protein Albumin Globulin Albumin/Globulin Ratio Free T4 Hep Bs Antigen Hep Bs Antibody Hep B Core Total Ab Hep B Core IgM Ab POC Glucose 129 H 109 08/18/19 08/19/19 08/19/19 23:18 04:30 04:30 WBC 31.5 H* RBC 2.69 L Hgb 8.4 L Hct 27.0 L MCV 100.4 H MCH 31.2 MCHC 31.1 L RDW Std Deviation 60.4 H RDW Coeff of Harper 17.7 H Plt Count 218 MPV 10.0 Neut % (Auto) Not Reportable Absolute Neuts (auto) 22.7 H Absolute Lymphs (auto) 4.09 Total Counted 100 Neutrophils % (Manual) 69 Band Neutrophils % 3 Lymphocytes % (Manual) 13 L Monocytes % (Manual) 11 H Metamyelocytes % 4 H Myelocytes % Promyelocytes % Diff Path Review Reviewed Platelet Estimate ADEQUATE RBC Morphology N CYTIC Hypochromasia RARE Anisocytosis RARE Specimen Type Sample Site pH Bicarbonate Actual POC Total CO2 Base Excess O2 Saturation O2 % ABG pCO2 ABG pO2 Ramy Test Respiration Rate O2 Delivery Device EPAP Blood Gas Notified Whom Blood Gas Notified Time Sodium 138 Potassium 3.2 L Chloride 107 Carbon Dioxide 24.0 Anion Gap 7 BUN 40 H Creatinine 3.47 H Estim Creat Clear Calc 13.12 Est GFR (MDRD) Af Amer 17 L Est GFR (MDRD) Non-Af 14 L BUN/Creatinine Ratio 11.5 Glucose 129 H Calcium 8.3 L Magnesium 1.9 Total Bilirubin AST ALT Alkaline Phosphatase Ammonia Total Protein Albumin Globulin Albumin/Globulin Ratio Free T4 Hep Bs Antigen Hep Bs Antibody Hep B Core Total Ab Hep B Core IgM Ab POC Glucose 120 H 08/19/19 08/19/19 08/20/19 12:46 18:50 00:41 WBC RBC Hgb Hct MCV MCH MCHC RDW Std Deviation RDW Coeff of Harper Plt Count MPV Neut % (Auto) Absolute Neuts (auto) Absolute Lymphs (auto) Total Counted Neutrophils % (Manual) Band Neutrophils % Lymphocytes % (Manual) Monocytes % (Manual) Metamyelocytes % Myelocytes % Promyelocytes % Diff Path Review Platelet Estimate RBC Morphology Hypochromasia Anisocytosis Specimen Type Sample Site pH Bicarbonate Actual POC Total CO2 Base Excess O2 Saturation O2 % ABG pCO2 ABG pO2 Ramy Test Respiration Rate O2 Delivery Device EPAP Blood Gas Notified Whom Blood Gas Notified Time Sodium Potassium Chloride Carbon Dioxide Anion Gap BUN Creatinine Estim Creat Clear Calc Est GFR (MDRD) Af Amer Est GFR (MDRD) Non-Af BUN/Creatinine Ratio Glucose Calcium Magnesium Total Bilirubin AST ALT Alkaline Phosphatase Ammonia Total Protein Albumin Globulin Albumin/Globulin Ratio Free T4 Hep Bs Antigen Hep Bs Antibody Hep B Core Total Ab Hep B Core IgM Ab POC Glucose 113 H 100 110 08/20/19 05:51 WBC RBC Hgb Hct MCV MCH MCHC RDW Std Deviation RDW Coeff of Harper Plt Count MPV Neut % (Auto) Absolute Neuts (auto) Absolute Lymphs (auto) Total Counted Neutrophils % (Manual) Band Neutrophils % Lymphocytes % (Manual) Monocytes % (Manual) Metamyelocytes % Myelocytes % Promyelocytes % Diff Path Review Platelet Estimate RBC Morphology Hypochromasia Anisocytosis Specimen Type Sample Site pH Bicarbonate Actual POC Total CO2 Base Excess O2 Saturation O2 % ABG pCO2 ABG pO2 Ramy Test Respiration Rate O2 Delivery Device EPAP Blood Gas Notified Whom Blood Gas Notified Time Sodium Potassium Chloride Carbon Dioxide Anion Gap BUN Creatinine Estim Creat Clear Calc Est GFR (MDRD) Af Amer Est GFR (MDRD) Non-Af BUN/Creatinine Ratio Glucose Calcium Magnesium Total Bilirubin AST ALT Alkaline Phosphatase Ammonia Total Protein Albumin Globulin Albumin/Globulin Ratio Free T4 Hep Bs Antigen Hep Bs Antibody Hep B Core Total Ab Hep B Core IgM Ab POC Glucose 91 Microbiology 08/17/19 00:15 Sputum, Tracheal Aspirate Gram Stain - Final 08/17/19 00:15 Sputum, Tracheal Aspirate Respiratory Culture - Final Presumptive C albicans Clinical Impression(s) from Imaging Studies Chest X-Ray 08/09/19 15:11 IMPRESSION: No major interval change. Electronically Signed: Jimmy Lara DO at 16:14 EST Tel [phone], Service support , Chest CT 08/10/19 19:00 IMPRESSION: Bilateral lower lobe atelectasis, right maternal left with mild right-sided pleural effusion. Mild ascites. No focal infiltrate or pleural effusion. Electronically Signed: Yohana Del Rio MD at 4:05 EST , Service support , Pelvis CT 08/11/19 07:52 IMPRESSION: Large soft tissue gap most likely secondary to debridement overlying the right gluteus muscle. Focal scalloping of the posterior margin of the right hemisacrum. Osteomyelitis should be ruled out. Electronically Signed: Alan Sonny, at 11:07 EST , Service support , Chest X-Ray 08/12/19 13:59 IMPRESSION: Cardiomegaly with increased pleural effusions. Low volume with compression atelectasis as described. No acute superimposed finding. Electronically Signed: Jerod Pascal MD at 14:55 EST , Service support , Chest Ultrasound 08/13/19 08:47 IMPRESSION: Tiny pleural effusion. Electronically Signed: Alan Dennis, at 15:53 EST , Service support , Renal Ultrasound 08/13/19 12:47 IMPRESSION: Normal renal ultrasound bilaterally with no changes from prior exam. Empty urinary bladder by Ahmadi catheter. Electronically Signed: Karolina Graham MD at 15:44 EST , Service support , Chest X-Ray 08/17/19 01:55 IMPRESSION: Decreasing lung expansion. Increasing pulmonary edema. Likely increasing atelectasis within the right lower lobe, possibly increasing consolidation and infection within the right lower lobe.. at 0331 Reported and signed by: Mendez Smith MD Electronically Signed: Mendez Smith MD at 3:30 EST Tel , Service support , Chest X-Ray 08/17/19 10:03 IMPRESSION: 1. Interval placement of right internal jugular tunnel dialysis catheter tip the catheter overlying spur vena cava and no pneumothorax. 2. Interval placement of nasogastric tube with the tip below the diaphragm. 3. Poor inspiration with some bibasilar atelectasis Electronically Signed: Daniel Gonzales MD at 12:26 EST Tel , Service support , Brain CT 08/18/19 09:58 IMPRESSION: Normal unenhanced CT scan of the brain. Electronically Signed: Alan Sonny, at 15:45 EST , Service support , Medical Necessity - Tobacco Use Smoking Status: Former smoker Tobacco Use: Vapor Assessment/Plan All Active Problems ILIANA (acute kidney injury) (Acute) Fecal soiling due to fecal incontinence (Acute) RECOMMENDATIONS: 1. Proceed with transition of care to hospice services later today. 2. Continue current supportive measures until patient transitions to comfort care measures only. IMPRESSIONS: 1. Severe sepsis secondary to sacral osteomyelitis Continue current supportive measures. The patient has been weaned from vasopressor support. 2. Encephalopathy Appears to be secondary to nonconvulsive status epilepticus, following completion of EEG and subsequent consultation with neurology. The patient has been started on Keppra and as needed Ativan for further seizure activity. Recommendations were made to transfer the patient to a neuro ICU with continuous EEG monitoring capabilities. However, following discussion with the family, they have elected to pursue eventual transition to comfort care measures and initiation of hospice care services. 3. Acute kidney injury, presumed secondary to ischemic ATN Continue current supportive measures per nephrology recommendations. 4. History of obstructive sleep apnea Continue AVAPS therapy as tolerated by the patient for now. 5. History of bipolar disorder/diabetes mellitus/hypertension/hyperlipidemia/obesity Complicates care, management, recovery and prognosis. Patient to remain n.p.o. for now, given tenuous respiratory status. This note was generated with [employer] dictation software. It may contain incorrect words, spelling, and punctuation that were not noted in checking the note before signing. Code Visit Inpatient E&M: 85097 Subs Hosp L2
[2019-08-20] MEDS: Menthol/Lanolin/Calamine/Znox 113 GM Tube 1 APPLIC TOPICAL (10:37)
--- NOTE | 2019-08-20 13:14 | DS.PCM_ITS ---
Discharge Date and Diagnosis - Problem List Patient Problems: Active and Suspected Problems ILIANA (acute kidney injury) (Acute) Date of Admission: 08/09/19 Date of Discharge: 08/20/19 - Primary Discharge Diagnosis Active and Suspected Problems ILIANA (acute kidney injury) (Acute) - Secondary Discharge Diagnosis Chronic Problems Gout (Chronic) Benzodiazepine dependence (Chronic) Neuropathic pain (Chronic) Insomnia (Chronic) Bipolar disorder (Chronic) Hypothyroidism (Chronic) Pressure ulcer of sacral region, stage 4 (Chronic) infected necrotizing right buttock and right sacral pressure sore, Stage IV Hypertension (Chronic) Hyperlipidemia (Chronic) Chronic back pain (Chronic) Impaired mobility (Chronic) Severe obesity (BMI 35.0-35.9 with comorbidity) (Chronic) CKD (chronic kidney disease), stage III (Chronic) Diabetes mellitus, type II (Chronic) Anxiety and depression (Chronic) RLS (restless legs syndrome) (Chronic) Nicotine vapor product user (Chronic) Former tobacco use (Chronic) Macrocytic anemia (Chronic) Intractable low back pain (Chronic) Hospital Course and Treatment Imaging Results: CT Chest: IMPRESSION: Bilateral lower lobe atelectasis, right maternal left with mild right-sided pleural effusion. Mild ascites. No focal infiltrate or pleural effusion. CT Pelvis: IMPRESSION: Large soft tissue gap most likely secondary to debridement overlying the right gluteus muscle. Focal scalloping of the posterior margin of the right hemisacrum. Osteomyelitis should be ruled out. Renal US: IMPRESSION: Normal renal ultrasound bilaterally with no changes from prior exam. Empty urinary bladder by Ahmadi catheter. CT Brain: IMPRESSION: Normal unenhanced CT scan of the brain. Consultations 08/09/19 19:00 Consult: Onc/Wound/documentation specialist Routine Comment: ID Surgery ICU Nephrology Hospice Operations: - - s/p I & D and partial ostectomy Procedures: Central line placement, Dialysis, PICC line placement Summary of Care Provided: Per HPI: The patient is a 63 year old F who presents emergency room due to altered mental status and hypoxia. Patient was noted to have fever of 102, tachycardia and hypotension in TCU. Chest x-ray was obtained which showed pneumonia and patient was started on IV azithromycin and IV Rocephin 08/07/2019. Patient very confused upon examination in the emergency room and unable to provide HPI. She denies shortness of breath. She does report recent cough. She is restless and complains of pain in her buttock area where she has a known wound. Denies other specific complaints. Patient has a past medical history of type 2 diabetes mellitus, anxiety, depression, bipolar disorder, chronic kidney disease stage III, hypertension, hyperlipidemia, tobacco use via vaping. Patient had recent debridement of stage IV sacral pressure ulcer 07/25/[address] Kaiser, cultures grew Serratia marcescens at that time. Hospital Course: 1. Severe sepsis secondary to a stage IV pressors for as well as osteo/acute metabolic encephalopathy secondary to sepsis and infection 2. Acute renal failure causing some component of metabolic encephalopathy/hypernatremia and hyperchloremia 3. Acute on chronic hypercapnic respiratory failure 4. DM 2 5. Anxiety/depression/bipolar 6. HTN/HLD 7. Hypothyroidism 8. GERD 63-year-old female who presented to the ER from transitional care unit with what was felt to be bilateral lower lobe pneumonia. At the time she was in severe sepsis and she was started on broad-spectrum antibiotics to cover her pneumonia. She also had a pressure sore that was taken to the OR a few days after admission for debridement. She did have a large debridement and cultures demonstrated MRSA, presumptive Charmaine albicans, corynebacterium striatum, and Bacteroides vulgatus. She was continued on the cefepime and vancomycin and then transitioned to daptomycin by infectious disease. She was also started on Flagyl for the anaerobic organisms. Her white count remains significantly elevated into the 30s and so she had a C. difficile test which showed positive antigen but no toxin, so even though she did have active C. difficile at the time an NG tube was placed and she was started on p.o. vancomycin since we had no other reason for her white count to be elevated. She was also started on Diflucan as well without any significant improvement. She had agitation and delirium in the transitional care unit and was started on Haldol. When she was admitted to the hospital she was still highly confused and saying that we are trying to kill her and that is why she was not taking her oral medications. She was given a dose of Geodon and then transition to Zyprexa. She started having signs of renal failure, initially she was started on IV fluids which did not seem to help. A renal ultrasound was obtained which was unremarkable and nephrology was consulted. She unfortunately continued to have a rise in her creatinine as well as become hypernatremic and was transitioned to D5W to control her sodium. However she became encephalopathic likely from medications and her infection. Her antipsychotics were discontinued however she had no resolution in her encephalopathy. She had a dialysis catheter placed and she was started on dialysis however she had a difficult time tolerating dialysis and had to have a PICC line placed for IV pressor support. Around August 16 and she was noticed to be more sedated, her pupils were not is reactive and she had a head tremor and therefore an EEG was obtained and read by our telemetry neurology service as nonconvulsive status epilepticus. There was extensive discussions with the family at that time that she had to have a renal dosing for her Raghav because the hospital does not carry fosphenytoin, and Ativan is cleared by the kidneys and therefore she was having a respiratory compromise from it, especially when she was given Ativan for the procedure to place the dialysis catheter. I discussed with the family that she would need to be intubated and transferred to another hospital where they could do 24-hour EEG monitoring. They discussed with each other and and myself and ultimately decided that she would not want to be intubated and concern was that she would not regain her baseline and that the likelihood of extubation was small. They elected to proceed with hospice. She was discharged to hospice on 08/20/2019. Patient Problems: Active and Suspected Problems ILIANA (acute kidney injury) (Acute) - Physical Exam Vitals/I&O's: Vital Signs Temp Pulse Resp BP Pulse Ox 97.1 F L 116 H 30 H 130/61 H 96 08/20/19 12:00 08/20/19 12:00 08/20/19 12:00 08/20/19 12:08/20/19 12:00 Oxygen Flow Rate (L/min) 5 Oxygen Delivery Method Bi-pap Weight: 222 lb 0.088 oz Body Mass Index (BMI) 36.9 Finger Stick Blood Glucose 134 Intake and Output for Last 24 Hours 08/18/19 08/19/19 08/20/19 23:59 23:59 23:59 Intake Total 1675.58 / 1676.76 470.34 / 470.34 320 / 320 Output Total 1750 / 1800 90 / 140 60 / 60 Balance -74.42 / -123.24 380.34 / 330.34 260 / 260 General: Head tremor- - Does not respond to commands HEENT: Atraumatic, Normocephalic, Sluggish Pupils Oral: Moist Mucosa Neck: Supple Lungs: Bilateral rhonchi, diminished Cardiovascular: Regular Rhythm, Normal S1, Normal S2, No murmurs, Tachycardic Abdomen: Soft, Non-Distended, No Hepato-splenomegaly Extremities: Capillary Refill Less than 3 Seconds, Edema Skin: No rashes, No breakdown, Ulcer/ Wound - Dressing on her right buttock is intact Neurological: - - Given her lack of following commands cannot examine Psych/Mental Status: Cannot evaluate Microbiology Past 72 Hours 08/17/19 00:15 Sputum, Tracheal Aspirate Gram Stain - Final 08/17/19 00:15 Sputum, Tracheal Aspirate Respiratory Culture - Final Presumptive C albicans Laboratory Results 08/17/19 17:20: Hep B Core Total Ab Negative, Hep B Core IgM Ab Negative 08/19/19 04:30: Diff Path Review Reviewed 08/19/19 18:50: POC Glucose 100 08/20/19 00:41: POC Glucose 110 08/20/19 05:51: POC Glucose 91 Current Medications Acetaminophen (Tylenol Liquid) 650 mg GT Q6H PRN PRN PRN Reason: PAIN 1-3/ TEMP >100.7 Albuterol Sulfate (Ventolin Aerosols) 2.5 mg INHALATION Q2H PRN PRN PRN Reason: SOB/Wheezing Allopurinol (Zyloprim) 300 mg GT DAILY [facility] Last Admin: 08/20/19 10:24 Dose: Not Given Documented by: Aspirin (Aspirin, Baby) 81 mg GT QHS [facility] Last Admin: 08/19/19 21:32 Dose: Not Given Documented by: Calamine/Phenol (Calmoseptine Ointment) 1 applic TOPICAL 4X/DAY [facility]; Protocol Last Admin: 08/20/19 10:37 Dose: 1 applicatio Documented by: Glucagon () 1 mg IM .X1 PRN PRN Reason: Hypoglycemia Hyoscyamine Sulfate (Levsin/Sl) 0.125 mg SUBLINGUAL Q4H PRN PRN PRN Reason: CONGESTION Last Admin: 08/19/19 13:00 Dose: 0.125 mg Documented by: Dextrose (Dextrose 10%-Water) 250 mls @ 999 mls/hr IV .Q16M PRN; Protocol PRN Reason: HYPOGLYCEMIA Sodium Chloride () 250 mls @ 15 mls/hr IV .[id number] PRN PRN Reason: Saline Flush Sodium Chloride () 250 mls @ 15 mls/hr IV .[id number] PRN PRN Reason: Additional IVPB Infusion Norepinephrine Bitartrate 8 mg (/ Sodium Chloride) 250 mls @ 9.375 mls/hr CONT INF .[id number] [facility]; Protocol Last Admin: 08/19/19 21:22 Dose: Not Given Documented by: Pantoprazole Sodium 40 mg/ (Sodium Chloride) 110 mls @ 330 mls/hr IV Q12 [facility] Last Admin: 08/20/19 11:07 Dose: Not Given Documented by: Levetiracetam 500 mg/ Sodium (Chloride) 105 mls @ 400 mls/hr IV Q12 [facility] Last Infusion: 08/20/19 11:08 Dose: Infused Documented by: Insulin Human Lispro (Humalog Kwikpen (Bkc)) 0 unit SC Q6 [facility]; Protocol Last Admin: 08/20/19 05:57 Dose: Not Given Documented by: Levothyroxine Sodium (Synthroid) 75 mcg GT DAILY@0600 [facility] Last Admin: 08/20/19 05:53 Dose: 75 mcg Documented by: Lorazepam (Ativan) 1 - 2 mg IV Q2H PRN PRN PRN Reason: SEIZURES Last Admin: 08/20/19 10:38 Dose: 2 mg Documented by: Prochlorperazine Edisylate (Compazine Iv) 5 mg IV Q4H PRN PRN PRN Reason: Breakthrough Nausea/Vomiting Last Admin: 08/10/19 10:33 Dose: 5 mg Documented by: Scopolamine HBr (Transderm-Scop) 1 patch TD Q3D PRN PRN Reason: CONGESTION Sodium Chloride () 10 - 40 ml IV UD PRN PRN Reason: Open End PICC Flush Last Admin: 08/19/19 15:18 Dose: 10 ml Documented by: Sodium Chloride (0.9% Nacl (Sterile) Posiflush) 10 - 40 ml IV UD PRN PRN Reason: Port access or dressing change Home Medications: Medications to take at Discharge Allopurinol 300 mg PO DAILY 07/22/19 Benztropine Mesylate 0.5 mg PO QHS 07/22/19 Buspirone HCl 10 mg PO BID 07/22/19 Cyanocobalamin (Vitamin B-12) [Vitamin B-12] 1,000 mcg PO DAILY 07/22/19 Empagliflozin [Jardiance] 10 mg PO DAILY 07/22/19 Furosemide 40 mg PO BID 07/22/19 Gabapentin [Neurontin] 600 mg PO 4X/DAY 07/22/19 Hydroxyzine HCl 50 mg PO QHS PRN PRN 07/22/19 Levothyroxine [Synthroid] 75 mcg PO DAILY 07/22/19 Olanzapine 20 mg PO DAILY 07/22/19 Omeprazole 40 mg PO DAILY 07/22/19 Potassium Chloride [K-Dur] 10 meq PO BID 07/22/19 Pramipexole Di-HCl [Mirapex] 0.125 mg PO QHS 07/22/19 Psyllium Husk [Fiber] 4 cap PO DAILY 07/22/19 Rosuvastatin Calcium 40 mg PO QHS 07/22/19 Sodium Bicarbonate 2 tab PO BID 07/22/19 Venlafaxine HCl [Venlafaxine HCl ER] 150 mg PO DAILY 07/22/19 traZODone [Desyrel] 25 mg PO QHS 07/22/19 Aspirin [Aspir 81] 81 mg PO QHS 07/24/19 Cholecalciferol (Vitamin D3) [Vitamin D3] 5,000 unit PO DAILY 07/24/19 Metoprolol Tartrate 25 mg PO BID 07/24/19 Mv-Min/FA/Vit K/Lycop/Lut/Zeax [Ocuvite Eye Plus Multi Tablet] 1 tab PO TID 07/24/19 Acetaminophen [Tylenol Tablet] 650 mg PO Q6H PRN PRN tab 07/31/19 Cefdinir [Omnicef [equiv]] 300 mg PO Q12 07/31/19 Glucerna Shake 120 ml PO 4X/DAY 07/31/19 Heparin Injection (Vial) [Heparin Na] 5,000 unit SUBCUT Q12 07/31/19 Insulin Lispro [Humalog KwikPen] See Protocol SUBCUT ACHS 07/31/19 Nicotine [Nicoderm Cq] 7 mg TRANSDERM. DAILY 07/31/19 Oxycodone [Oxyir] 5 mg PO Q4H PRN PRN 3 Days #12 tab 07/31/19 Primary Care Physician: Zaira Donaldson DO [Primary Care Provider] - Disposition: Hospice Medical Facility Minutes spent on discharge:: 35 Patient Condition:: Stable Medical Necessity - Tobacco Use Smoking Status: Former smoker Tobacco Use: Vapor Meaningful Use Info Meaningful Use Diagnoses (Choose all that apply): None applicable Code Visit Inpatient E&M: 86301 Disch Hosp
== END 2019-08-20 14:20 | disposition hospice, inpatient (51) | DRG 853 ==
LOC: ED 17:06 → ICU 18:42 → PCU 08-11 06:18 → ICU 08-11 12:47 → PCU 08-12 07:35 → ICU 08-17 09:04
PROVIDERS: Internal Medicine; Internal Medicine Critical Care Medicine; Internal Medicine Infectious Disease; Internal Medicine Nephrology; Nurse Practitioner Family; Physician Assistant; Surgery; Admitting Provider Internal Medicine; Emergency Provider Emergency Medicine; PCP Internal Medicine; Visit Provider Family Medicine
PROC: 0JB90ZZ Excision of Buttock Subcutaneous Tissue and Fascia, Open Approach (ICD-10-PCS; principal; 2019-08-11 14:30)
DX: A41.9 Sepsis, unspecified organism (principal); L89.154 Pressure ulcer of sacral region, stage 4; L89.314 Pressure ulcer of right buttock, stage 4; G93.41 Metabolic encephalopathy; J96.22 Acute and chronic respiratory failure with hypercapnia; J18.9 Pneumonia, unspecified organism; I96 Gangrene, not elsewhere classified; N17.9 Acute kidney failure, unspecified; M46.28 Osteomyelitis of vertebra, sacral and sacrococcygeal region; G47.33 Obstructive sleep apnea (adult) (pediatric); E03.9 Hypothyroidism, unspecified; E78.5 Hyperlipidemia, unspecified; F17.290 Nicotine dependence, other tobacco product, uncomplicated; I12.9 Hypertensive chronic kidney disease with stage 1 through stage 4 chronic kidney disease, or unspecified chronic kidney disease; G25.81 Restless legs syndrome; E66.01 Morbid (severe) obesity due to excess calories; Z68.36 Body mass index [BMI] 36.0-36.9, adult; F31.9 Bipolar disorder, unspecified; F41.9 Anxiety disorder, unspecified; M10.9 Gout, unspecified; E11.22 Type 2 diabetes mellitus with diabetic chronic kidney disease; K21.9 Gastro-esophageal reflux disease without esophagitis; Z51.5 Encounter for palliative care; N18.3 Chronic kidney disease, stage 3 (moderate); B95.62 Methicillin resistant Staphylococcus aureus infection as the cause of diseases classified elsewhere; Z79.4 Long term (current) use of insulin
CPT/HCPCS: 31720; 36415; 36569; 36592; 36600; 70450; 71045; 71250; 72192; 76604; 76770; 80048; 80053; 80069; 80076; 80202; 81001; 82140; 82550; 82803; 82962; 83605; 83615; 83735; 83880; 84100; 84134; 84156; 84439; 84443; 84484; 85025; 85027; 85610; 86704; 86705; 86706; 87040; 87070; 87075; 87077; 87086; 87088; 87102; 87106; 87186; 87205; 87206; 87340; 87493; 87641; 88305; 88311; 90937; 93005; 94002; 94003; 94640; 94762; 95819; 97110; 97162; 97166; 97802; 99251; 99285; J0878; J2997; J7030; J7040; J7050; J7120; A4216; C1752; G0257; G0463; J1940; J2405; J3486; J3490; J7799